=== PATIENT | female | born 1980 | race Caucasian/White ===

== ENCOUNTER 2017-09-23 23:43 | Inpatient (IN) | payer OTHER ==
[~2017-09-23] VITALS: Ht 165.1 cm; Wt 68.9 kg
[~2017-09-23 23:43] MED LIST: ACETAMINOPHEN325 M1 PO; ASACOL HD800 MG PO; CIPROFLOXACIN500 MG PO; CYCLOBENZAPRINE10 MG PO; FLAGYL500 MG PO; HUMIRA40 MG/0.1 SUB-Q; MELOXICAM15 MG PO; NAPROXEN500 MG PO; NORCO 5-325 TA1 EACH PO; OMEPRAZOLE20 MG PO; PENICILLIN V P500 MG PO; PERCOCET 5-3251 EACH PO; PREDNISONE20 MG PO; REMICADE100 MG/10 IV
[2017-09-23] MEDS ORDERED: IBUPROFEN600 MG PO (23:59)
[2017-09-26] MEDS ORDERED: PREDNISONE10 MG PO (11:10)
== END 2017-09-26 12:30 | disposition home or self-care (01) | DRG 386 ==
LOC: ED 23:43 → MS 23:45 → ED 09-24 01:59 → MS 09-24 08:53
PROVIDERS: ADMIT Internal Medicine
PROC: 30233N1 Transfusion of Nonautologous Red Blood Cells into Peripheral Vein, Percutaneous Approach (ICD-10-PCS; principal; 2017-09-24)
DX: K51.90 Ulcerative colitis, unspecified, without complications (principal); D62 Acute posthemorrhagic anemia; M13.80 Other specified arthritis, unspecified site; Z88.2 Allergy status to sulfonamides
CPT/HCPCS: 36415; 36430; 80053; 81001; 83605; 83735; 84703; 85025; 86850; 86900; 86901; 86920; 87045; 87046; 87177; 87209; 87493; 96360; 99285; G0378; J1720; J7030; J7120; P9016

== ENCOUNTER 2018-04-07 22:27 | Emergency (ER) | payer OTHER ==
[~2018-04-07] VITALS: Ht 165.1 cm; Wt 70.3 kg
[~2018-04-07 22:27] MED LIST changes: +IBUPROFEN600 MG PO; +PREDNISONE10 MG PO
[2018-04-08] MEDS ORDERED: FERROUS SULFAT325 MG PO (00:07)
== END 2018-04-08 00:33 | disposition home or self-care (01) ==
LOC: ED 22:27
DX: K51.90 Ulcerative colitis, unspecified, without complications (principal); D50.9 Iron deficiency anemia, unspecified; Z87.891 Personal history of nicotine dependence; Z88.2 Allergy status to sulfonamides
CPT/HCPCS: 80053; 81001; 83690; 84703; 85025; 96374; 99283; J2930; J7030

== ENCOUNTER 2018-10-19 22:00 | Inpatient (IN) | payer OTHER ==
[~2018-10-19] VITALS: Ht 165.1 cm; Wt 82.6 kg
[~2018-10-19 22:00] MED LIST changes: +FERROUS SULFAT325 MG PO
--- NOTE | 2018-10-20 00:30 | NUR ---
PER PT REQUEST WE BROUGHT HER A PILLOW AND A WARM BLANKET. PT NEEDS NOTHING MORE AT THIS TIME.
--- NOTE | 2018-10-20 04:23 | NUR ---
PATIENT HAS 6-8/10 NOEL AND BACK PAIN. PATIENT HAS A 1 LITER FLUID BOLUS RUNNING OVER AN HOUR AND THEN IV FLUIDS AT 150MLS/HR. PATIENT IS INDEPENDENT IN ROOM. ORIENTED TO CALL LIGHT, TV AND REMOTE, LIGHTS, AND BATHROOM. LUNGS CLEAR , VS STABLE, BOWEL TONES HYPERACTIVE.
--- NOTE | 2018-10-20 06:39 | NUR ---
PATIENT CONTINUES TO REST QUIETLY EYES CLOSED, NO S/S OF DSTRESS, RESPIRATIONS REGULAR AND EVEN AT THIS TIME.
--- NOTE | 2018-10-20 07:10 | NUR ---
BEDSIDE REPORT RECEIVED FROM MAGGIE KLEIN.
--- NOTE | 2018-10-20 07:10 | NUR ---
PT RESTING SUPINE IN BED, EYES CLOSED AND RESPIRATIONS EVEN AND UNLABORED. CALL LIGHT AND H2O IN REACH. IV MAINTENANCE FLUIDS INFUSING.
--- NOTE | 2018-10-20 09:09 | NUR ---
Pt resting supine in bed conversing with family at bedside. Pt states "I'm not having any nausea and my diahrea has slowed down. When do you think I'll be able to order regular food?" Pt informed that she is still ordered a clear liquid diet but that the doctor may advance her diet after he completes rounds with her this morning. pt assessment completed and am medication administered. Pt denies needs or concerns. Call light and h2o in reach.
--- NOTE | 2018-10-20 09:50 | NUR ---
PT WAS INFORMED THAT SHE MAY ADVANCE TO A REGUALR DIET TOLERABLE. PT STATES SHE FEELS SHE IS READY AND WILL ORDER REGULAR LUNCH. PT AGREES TO USE CALL LIGHT IF NAUSEA OR SYMPTOMS WORSEN. CALL LIGHT AND H20 IN REACH. FAMILY REMAINS AT BEDSIDE.
[2018-10-20] MEDS ORDERED: IBUPROFEN200 MG PO (11:04)
--- NOTE | 2018-10-20 11:42 | NUR ---
PT REPORTS HEADACHE PAIN OF 6/10 AND ALSO SOME PAIN TO LOWER BACK. PT STATES THIS PAIN STARTED THREE DAYS AGO AND COMES AND GOES AND HAS FOUND RELEIF WITH TYLENOL IN THE PAST. PRN PO TYLENOL ADMINISTERED. CALL LIGHT AND FRESH ICE WATER IN REACH. PT EATING LUNCH AND DENIES FURTHER NEEDS.
--- NOTE | 2018-10-20 13:55 | NUR ---
MED REC COMPLETE
--- NOTE | 2018-10-20 14:14 | NUR ---
PT RESTING SUPINE IN BED, STATES HEADACHE AND LOW BACK PAIN ARE NOW TOLERABLE. ASSESSMENT COMPLETED AND MEDICATIONS ADMINISTERED- SEE MAR. CALL LIGHT AND H2O IN REACH. NO FURTHER CONCERNS OR REQUESTS VOICED. FAMILY AT BEDSIDE.
--- NOTE | 2018-10-20 14:20 | NUR ---
PT IS EXPECTING TO RETURN HOME WHEN SHE IS DISCHARGED, NO NOTED BARRIERS TO DC. HAS GOOD SUPPORT AT HOME.
--- NOTE | 2018-10-20 16:08 | NUR ---
PATIENT IN BED RESTING AND WATCHING TV. WATER REFRESHED. CALL LIGHT IN REACH. NO FURTHER NEEDS AT THIS TIME.
--- NOTE | 2018-10-20 19:05 | NUR ---
[facility]. PT AWAKE AND ALERT X3, DENIES NEEDS AT THIS TIME. CALL LIGHT IN REACH. IV FLUIDS INFUSING AT 100 MLS/HR, SITE WNL.
--- NOTE | 2018-10-20 20:17 | NUR ---
CHARGE NURSE ROUNDING NOTE:, RESTING, EYES CLOSED, IVF INFUSING, NO C/O PAIN, NO REQUEST
--- NOTE | 2018-10-20 21:50 | NUR ---
VITALS AND I&OS DONE AND CHARTED. BEDSIDE TABLE AND CALL LIGHT IN REACH.
--- NOTE | 2018-10-20 22:10 | NUR ---
ASSESSMENT COMPLETE. PT A/O X3, DENIES PAIN. SCHEDULED SOLU-CORTEF ADMINISTERED. IV SITE WNL. PT APPEARS IN GOOD SPIRITS, VSS. NO FURTHER NEEDS AT THIS TIME. CALL LIGHT IN REACH.
--- NOTE | 2018-10-21 03:38 | NUR ---
morning assessment complete. pt a/ox3, rates pain 5/10 in head related to recent headache. prn tylenol given. iv fluids infusing per md orders, site wnl. pt denies further needs, call light in reach.
--- NOTE | 2018-10-21 06:55 | NUR ---
PT USES CALL LIGHT APPROPERIATELY, A/OX3. PT AMBULATES INDEPENDENTLY IN ROOM.PT ON REGULAR DIET, TOLERATING WELL, DENIED NAUSEA ALL SHIFT. VSS, PT ON RA. PT ON CONTINUOUS IV FLUIDS, SITE WNL. DENIED PAIN ALL SHIFT.
--- NOTE | 2018-10-21 07:07 | NUR ---
Pt resting supine in bed, eyes closed and respirations even and unlabored. Call light and h20 in reach. Pt appears to be sleeping comfortably. Bedside report received from MAGGIE Martin.
--- NOTE | 2018-10-21 08:36 | NUR ---
ASKED PATIENT IF SHE WOULD LIKE TO ORDER HER BREAKFAST AND SHE SAID LATER. PATIENT IS SLEEPING NOW. SON IS ALSO SLEEPING.
--- NOTE | 2018-10-21 09:24 | NUR ---
PT RESTING SUPINE IN BED, AM ASSESSMENT COMPLETED AND AM MED ADMINSITERED. CALL LIGHT AND H20 IN REACH. PT DENIES NAUSEA STATES STOMACH ACHES SLIGHTLY STILL AND REPORTS 2-3 LOOSE BM'S IN THE NIGHT AND 1 THIS MORNING "BUT THERE WAS NO MORE BLOOD IN IT". PT DENIES HAVING ANY CONCERNS OR REQUESTS AT THIS TIME.
--- NOTE | 2018-10-21 11:25 | NUR ---
Pt resting supine in bed, eyes closed and respirations even and unlabored at 16. call light and h20 in reach. pt appears to be sleeping comfortably. family also appears to be napping comfortably on couch at bedside.
--- NOTE | 2018-10-21 13:09 | NUR ---
in to see patient pt resting supine in bed eyes closed respirations even and unlbaored. pt alert to voice. Awake for assessment. VSS. call light and h20 in reach and family remains at bedside. pt orders lunch at this time.
--- NOTE | 2018-10-21 16:18 | NUR ---
PT RESTING SUPINE IN BED, DENIES SOB, ITCHING, PAIN OR ANY OTHER SYMPTOMS. VSS. CALL LIGHT AND H20 IN REACH. NO NEEDS OR CONCERNS VOICED. BLOOD CONTINUES TO INFUSE.
--- NOTE | 2018-10-21 17:10 | NUR ---
BLOOD INFUSION COMPLETED. PT DENIES ANY NEW SX'S CALL LIGHT AND H20 IN REACH. NO NEEDS OR CONCERNS VOICED. VSS.
--- NOTE | 2018-10-21 18:37 | NUR ---
PT CONTINUES TO REPORT SLIGHT ABDOMINAL ACHE, PT HAD SMALL AMOUNT OF BRIGHT BLOOD IN HER STOOL WHICH THE MD WAS NOTIFIED OF. PT WAS FEELING INCREASED FATIGUE AND NAPPING FOR HOURS AND HGB CONTINUED TO TREND LOW SO 1 UNIT PRBC'S WAS ORDERED AND TRANSFUSED. PT TOLORATED INFUSION WELL AND HAS SINCE BEEN UP AMBULATING HALLS AND APPEARS TO HAVE MORE ENERGY. VS'S HAVE REMAINED STABLE THROUGHOUT THE DAY. LIKELY DISCHARGE TOMORROW.
--- NOTE | 2018-10-21 19:00 | NUR ---
SHIFT REPORT RECEIVED FROM DAY[facility] MAGGIE BURCH. PT AWAKE AND TALKING ON THE TELEPHONE. APPEARS TO BE IN GOOD SPIRITS, A/OX3. NO NEEDS AT THIS TIME. PT IS SL AND WILL TAKE SHOWER AFTER EATING DINNER. CALL LIGHT IN REACH.
--- NOTE | 2018-10-21 19:56 | NUR ---
SCHEDULED PO POTASSIUM ADMINISTERED. PT DENIES FURTHER NEEDS. PT STES, "I AM JUST GOIGNT O REST FOR A COUPLE MINUTES AFTER I ATE DINNER THEN I WILL TAKE A SHOWER". CALL LIGHT IN REACH.
--- NOTE | 2018-10-21 21:06 | NUR ---
VITALS AND I&OS DONE AND CHARTED. TRAY TAKEN OUT OF ROOM. FRESH ICE WATER GIVEN. BEDSIDE TABLE AND CALL LIGHT IN REACH. PT NEEDS NOTHING MORE AT THSIS TIME. INFORMED RN TARA OF PULSE. 101
--- NOTE | 2018-10-21 21:45 | NUR ---
ASSESSMENT COMPLETE. PT A/O X3, VERBALIZES MINIMAL DISCOMFORT AFTER EATING BUT DENIES OVERALL PAIN. PT IN CHAIR, FAMILY IN ROOM. PT SL AT THIS TIME PT IS PREPARING TO TAKE A SHOWER. IV SITE WRAPPED FOR SHOWER DURING DAYSHIFT. WILL ADMINISTER SCHEDULED SOLU-CORTEF FOLLOWING SHOWER. NO FURTHER NEEDS, PT APPEARS IN GOOD SPIRITS. CALL LIGHT IN REACH.
--- NOTE | 2018-10-21 23:14 | NUR ---
MEDICATION DUE. pt FINISHED IN SHOWER. IV DRESSING GOT WET. NEW DRESSING APPLIED. IV FLUSHES WELL. MEDICATION GIVEN (SEE MAR). IV FLUIDS INFUSING AT 100 MLS/HR. CALL LIGHT WITHIN REACH.
--- NOTE | 2018-10-21 23:57 | NUR ---
WARM BLANKET PROVIDED PER PT REQUEST, NO FURTHER NEEDS. FAMILY IN ROOM WITH PT. IV FLUIDS INFUSING PER MD ORDERS, SITE WNL. CALL LIGHT IN REACH.
--- NOTE | 2018-10-22 00:54 | NUR ---
NEW BAG OF IV LR HUNG PER MD ORDERS. IV SITE PATENT. NO FURTHER NEEDS, CALL LIGHT IN REACH.
--- NOTE | 2018-10-22 02:15 | NUR ---
PT RESTING IN BED, EYES CLOSED. IV FLUIDS INFUSING PER MD ORDERS. RR EVEN AND UNLABORED, CALL LIGHT IN REACH.
--- NOTE | 2018-10-22 02:50 | NUR ---
MORNING ASSESSMENT COMPLETE. NO NEW CONCERNS. BOWEL TONES ACTIVE, GENERALIZED ABDOMINAL TENDERNESS NOTED. WHEN ASKED IF PT HAS HAD BLOOD IN RECENT BM, PT STATED, "I DON'T BELIEVE SO". IV FLUIDS INFUSING PER MD ORDERS, SITE WNL. ROOM TIDIED, FRESH WATER AND CRACKERS AT BEDSIDE PER PT REQUEST. PT IN BATHROOM FOR BM, NO FURTHER NEEDS, CALL LIGHT IN REACH.
--- NOTE | 2018-10-22 05:14 | NUR ---
PT HAD A VERY GOOD NIGHT. USES CALL LIGHT APPROPERIATELY, A/OX3 AND INDEPENDENT IN ROOM. PT ON REGULAR DIET, TOLERATING WELL W/ ACTIVE BOWEL TONES. PT DENIES NAUSEA BUT REPORTS ABDOMINAL TENDERNESS AND FEELING OF "BEING FULL". PT HAD SHOWER IN THE EVENING. IV FLUIDS INFUSING PER MD ORDERS, SITE WNL. VSS.
--- NOTE | 2018-10-22 06:32 | NUR ---
SCHEDULED SOLU-CORTEF GIVEN. IV SITE PATENT AND WNL. IV FLUIDS RESUMED. CALL LIGHT IN REACH.
--- NOTE | 2018-10-22 07:20 | NUR ---
REPORT RECEIVED FROM RY, PATIENT RESTING WITH EYES CLOSED, NO S/S OF DISTRESS.
--- NOTE | 2018-10-22 08:04 | NUR ---
PATIENT UP IN THE ROOM, NO C/O PAIN AT THIS TIME, PATIENT BREAKFAST ORDERED.
--- NOTE | 2018-10-22 10:48 | NUR ---
IV SALINE LOCKED. PATIENT UP IN THE ROOM WITHOUT ANY DIZZINESS AND IS STEADY ON HER FEET.
--- NOTE | 2018-10-22 12:43 | NUR ---
PATIENT RESTING WITH EYES CLOSED, WATER FILLED UP FOR HER AT THIS TIME, PATIENT HAS NO S/S OF DISTRESS.
--- NOTE | 2018-10-22 15:30 | NUR ---
PATIENT BLOOD STARTED AT THIS TIME, VITALS TAKEN AND PATIENT TEACHING DONE RE: S/S/ OF TRANSFUSION REACTION AT THIS TIME.
--- NOTE | 2018-10-22 15:45 | NUR ---
PATIENT HAS NO S/S OF TRANSFUSION REACTION AT THIS TIME. VITALS TAKEN AND PATIENT BLOOD RATE INCREASED.
--- NOTE | 2018-10-22 17:00 | NUR ---
HER UNIT OF PRBC COMPLETED AT THIS TIME, PATIENT DENIES ANY S/S OF BLOOD TRANSFUSION REACTION AT THIS TIME. PATIENT ATE 100% OF HER DINNER AND HAS NO C/O PAIN OR SOB.
--- NOTE | 2018-10-22 17:25 | NUR ---
PATIENT SITTING UP IN BED. VITAL SIGNS AND I&O DONE. CALL LIGHT WITHIN REACH. NO OTHER NEEDS AT THIS TIME
--- NOTE | 2018-10-22 17:49 | NUR ---
IV SALINE LOCKED AT THIS TIME
--- NOTE | 2018-10-22 19:20 | NUR ---
SHIFT REPORT RECEIVED FROM MAGGIE LEIGH. PT AWAKE IN BED, RR EVEN AND UNLABORED. PT DENIES NEEDS AT THIS TIME, CALL LIGHT IN REACH.
--- NOTE | 2018-10-22 21:02 | NUR ---
VITALS AND I&OS DONE AND CHARTED. FRESH ICE WATER GIVEN. FOOD TRAY TAKEN OUT OF ROOM. BEDSIDE TABLE AND CALL LIGHT IN REACH. PT NEEDS NOTHING MORE AT THIS TIME.
--- NOTE | 2018-10-22 21:30 | NUR ---
ROMAN PROVIDED PER PT REQUEST. PT APPEARS IN GOOD SPIRITS, CALL LIGHT IN REACH. NO FURTHER NEEDS.
--- NOTE | 2018-10-22 23:00 | NUR ---
ASSESSMENT COMPLETE. PT A/OX4, PRN TYLENOL RECENTLY GIVEN BY JUANITO SERRANO. PT REPORTS 4/10 PAIN IN NECK. PT SALINE LOCKED AT THIS TIME, AMBULATES INDEPENDENTLY IN THE ROOM. PT DENIES FURTHER NEEDS, CALL LIGHT IN REACH.
--- NOTE | 2018-10-22 23:07 | NUR ---
CALL LIGHT ON. pt REQUESTED TYLENOL. VERIFIED WITH PRIMARY RN. MEDICATIONS GIVEN (SEE MAR). ICE WATER REFRESHED. SHERBERT, WARM BLANKET AND HOT PACK PROVIDED. CALL LIGHT WITHIN REACH.
--- NOTE | 2018-10-23 02:06 | NUR ---
PT IN SHOWER, AMBULATING INDEPENDENTLY IN ROOM AT THIS TIME.
--- NOTE | 2018-10-23 04:41 | NUR ---
PT HAD A GOOD NIGHT. PAIN WELL CONTROLLED WITH PRN TYLENOL X1. PT A/OX4, USES CALL LIGHT APPROPERATELY AND AMBULATES IN ROOM INDEPENDENTLY. PT ON REGULAR DIET, TOLERATING WELL, NO NAUSEA THIS SHIFT BUT REPORTS FEELING BLOATED. PT SL AT THIS TIME.
--- NOTE | 2018-10-23 07:47 | NUR ---
PT RESTING SUPINE IN BED EYES CLOSED AND RESPIRATIONS EVEN AND UNLABORED. CALL LIGHT AND H20 IN REACH. PT APPEARS TO BE SLEEPING COMFORTABLY. BEDSIDE REPORT RECEIVED FROM MAGGIE PACHECO.
--- NOTE | 2018-10-23 08:19 | NUR ---
PT RESTING SUPINE IN BED, EYES CLOSED AND RESPIRATIONS EVEN AND UNLABORED. PT ALERT TO VOICE. ASSESSMENT COMPLETED AND AM MEDS ADMINISTERED. CALL LIGHT AND H20 IN REACH. PT DENIES NAUSEA, STATES SHE STILL IS EXPERIENCING SOME BLOATING BUT STILL HAS GOOD APPETITE.
--- NOTE | 2018-10-23 09:09 | NUR ---
PATIENT RESTING IN BED. VITAL SIGNS AND I&O DONE. CALL LIGHT WITHIN REACH. NO OTHER NEEDS AT THIS TIME
--- NOTE | 2018-10-23 11:01 | NUR ---
PT RESTING ON LEFT LATERAL SIDE IN BED, CALL LIGHT AND H20 IN REACH. RESPIRATIONS VISABLE AND PT APPEARS TO BE SLEEPING COMFORTBALY.
--- NOTE | 2018-10-23 13:34 | NUR ---
PATIENT RESTING IN BED. VITAL SIGNS AND I&O DONE. CALL LIGHT WITHIN REACH. ICE WATER GIVEN. NO OTHER NEEDS AT THIS TIME
[2018-10-23] MEDS ORDERED: PREDNISONE20 MG PO (13:56)
--- NOTE | 2018-10-23 13:57 | NUR ---
Pt resting supine in bed eyes closed and respirations even and unlabored. Pt alert to voice. Assessment completed. Pt states "Am I still going to get to go home today?". Pt assured that MD will be in to discuss plans with her as soon as she is able. Call light nad h20 in reach. No further requests or concerns voiced.
== END 2018-10-23 15:45 | disposition home or self-care (01) | DRG 387 ==
LOC: ED 22:00 → MS 10-20 02:40
PROVIDERS: ADMIT Internal Medicine
DX: K51.90 Ulcerative colitis, unspecified, without complications (principal); M07.60 Enteropathic arthropathies, unspecified site; D64.9 Anemia, unspecified; E86.0 Dehydration; L80 Vitiligo; Z87.891 Personal history of nicotine dependence; Z88.2 Allergy status to sulfonamides
CPT/HCPCS: 36415; 36430; 80048; 80053; 81001; 82728; 83540; 83690; 83735; 84466; 84703; 85025; 86850; 86900; 86901; 86920; 96360; 99284-25; J1650; J1720; J3475; J7030; J7120; J7512; P9016

== ENCOUNTER 2019-01-01 23:06 | Emergency (ER) | payer OTHER ==
[~2019-01-01] VITALS: Ht 165.1 cm; Wt 72.6 kg
--- OUTSIDE RECORDS SUMMARY | ~2019-01-01 | XMS | Clinical Summary ---
Demographics + + + | Address | [address] | | | [place] [address] | + + + | Home Phone | | + + + | Preferred Language | Unknown | + + + | Marital Status | Unknown | + + + | Jain Affiliation | Unknown | + + + | Race | Unknown | + + + | Ethnic Group | Unknown | + + + Author + + + | Author | [facility] | + + + | Organization | [facility] | + + + | Address | Unknown | + + + | Phone | Unavailable | + + + Care Team Providers + +------+ + | Care Call Box Wirer Name | Role | Phone | + +------+ + PP | Unavailable | + +------+ + Source Comments GEN is fully live on both EpicCare Ambulatory and EpicCare InPatient.[facility] Allergies Not on File Current Medications Not on file Active Problems Not on file Encounters +--------+ + + + + | Date | Type | Specialty | Care Team | Description | +--------+ + + + + | 11/09/ | Abstract | | Clinic, | | | 2018 | | | Gastroenterology | | +--------+ + + + + from Last 3 Months Social History + +-------+ +--------+------+ | Tobacco [...] on file | | + + + Plan of Treatment + + + + + | Health Maintenance | Due Date | Last Done | Comments | + + + + + | Influenza (Flu) | | | | | vaccination (#1) | 8 | | | + + + + + Results Not on filefrom Last 3 Months"
--- OUTSIDE RECORDS SUMMARY | ~2019-01-01 | XMS | Clinical Summary ---
Demographics + + + | Address | [address] | | | [place] [address] | + + + | Home Phone [...] | Author | [facility] | | | and [place] | + + + | Organization | [facility] | | | and [place] | + + + | Address | Unknown | + + + | Phone | Unavailable | + + + Support + + + + + | Name | Relationship | Address | Phone | + + + + + | Marilyn Diallo | ECON | [place] | | | | | [address] | | + + + + + | Lady Hastings ECON | Unknown | Unavailable | + + + + + Care Team Providers + +------+ + | Care Reclamation Furnace Operator Name | Role | Phone | [...] + + + Current Medications + + +---------+---------+------+------+-------+ | Prescription | Sig. | Disp. | Refills | Star | End | Statu | | | | | | t | Date | s | | | | | | Date | | | + + +---------+---------+------+------+-------+ | acetaminophen | Take 650 mg by mouth | | | | | Activ | | (TYLENOL) 325 mg | every 4 hours as | | | | | e | | tablet | needed for Pain. | | | | | | + + +---------+---------+------+------+-------+ | adalimumab (HUMIRA | Inject 0.8 mLs under | 2 kit | 2 | 07/ | | Activ | | PEN) 40 mg/0.8 mL | the skin every 14 | | | 06/30 | | e | | injection (pen) | days. | | | 16 | | | + + +---------+---------+------+------+-------+ Active Problems + + + | Problem [...] + + | Pulse | 81 | 03/10/20161139 PDT | + + + [...] | 160 cm (5' 3") | 03/11/2015 1351 PDT | + + + + | Body Mass Index | 32.59 | 03/10/2016 1140 PDT | + + + + Plan [...] Vaccine: Influenza | | | | | (#1) | 8 | | | + + + + + Results Not on filefrom Last 3 Months Insurance + +--------+ +--------+ +---------+ | Payer | Benefi | Subscriber | Type | Phone | Address | | | t Plan | ID | | | | | | / | | | | | | | Group | | | | | + +--------+ +--------+ +---------+ | [employer] | MODA | [id number] | Medica | [phone] | | MEDICAID HMO | HEALTH | | id | [id number] | | | | MDCD | | | | | | | [place]MO [place] | | | | | + +--------+ +--------+ +---------+ + +--------+ +--------+ + + | Guarantor Name | Accoun | Relation to | Date | Phone | Billing Address | | | t Type | Patient | of | | | | | | | | | | + +--------+ +--------+ + + | LIDA HASTINGS | Person | Self [birth year] | Work: | [address] | | | al/[place] | | 1979 | [phone] | [place] [address] | | | [address]ia | | | [phone]: | | | | | | | | | | | | | | [phone] | | | | | | | [phone] | | + +--------+ +--------+ + +
--- OUTSIDE RECORDS SUMMARY | ~2019-01-01 | XMS | Encounter Summary ---
Demographics + + + | Address | [address] | | | [place] [address] | + + + | Home Phone | | + + + | Preferred Language | Unknown | + + + | Marital Status | Single | + + + | Presybeterian Affiliation | Unknown | + + + | Race | Unknown | + + + | Ethnic Group | Unknown | + + + Author + + + | Author | [facility] | + + + | Organization | [facility] | + + + | Address | Unknown | + + + | Phone | Unavailable | + + + Support + + +---------+ + | Name | Relationship | Address | Phone | + + +---------+ + | Lady Hatsings | ECON | Unknown | | + + +---------+ + Care Team Providers + +------+ + | Care Multi Operation Forming Machine Setter Name | Role | Phone | + +------+ + | Meenakshi Christianson | PCP | | + +------+ + Reason for Visit +--------+ + | Reason | Comments | +--------+ + | Other | REFERRAL FROM [facility] | +--------+ + Encounter Details +--------+ + + + + | Date | Type | Department | Care Team | Description | +--------+ + + + + | 12/08/ | Documentati | [facility] | Osito Bowen | Other (REFERRAL FROM | | 2019 | on Only | Gastroenterology | MD Jonathan [address] | MEENAKSHI CHRISTIANSON) | | | | [address], | [address] | | | | | [address] [place], | [place] [address] | | | | | [place] [address] | [phone] | | | | | [phone] | | | +--------+ + + + [...] as of this encounter Plan of Treatment +--------+---------+ + + + | Date | Type | Specialty | Care Team | Description | +--------+---------+ + + + | 01/03/ | Office | Gastroenterology | Osito Bowen | | | 2019 | Visit | | MD Lizbeth Castillo | | | | | | Dr [address] | | | | | | [place] [address] | | | | | | [phone] | | | | | | | | +--------+---------+ + + + as of this encounter Visit Diagnoses Not on filein this encounter"
--- OUTSIDE RECORDS SUMMARY | ~2019-01-01 | XMS | Clinical Summary ---
Demographics + + + | Address | [address] | | | [place] [address] | + + + | Home Phone | | + + + | Preferred Language | Unknown | + + + | Marital Status | Single | + + + | Lutheran Affiliation | 1013 | + + + | Race | Unknown | + + + | Ethnic Group | Unknown | + + + Author + + + | Author | [facility] | | | and [place] | + + + | Organization | [facility] | | | and [place] | + + + | Address | Unknown | + + + | Phone | Unavailable | + + + Support + + + + + | Name | Relationship | Address | Phone | + + + + + | Marilyn Diallo | ECON | [place] | | | | | [address] | | + + + + + | Lady Hastings ECON | Unknown | Unavailable | + + + + + Care Team Providers + +------+ + | Care Rip Sawyer Name | Role | Phone | [...] | [employer] | MODA | [id number] | Medica | [phone] | | | MEDICAID HMO | HEALTH [...] | Self | [birth year] | Work: | [address] | | | al/[place] | | 1979 | [phone] | [place] [address] | | | [address] | | | [address]: | | | | | | | | | | | | | | [phone] | | | | | | | [phone] | | + +--------+ +--------+ + +
--- OUTSIDE RECORDS SUMMARY | ~2019-01-01 | XMS | Clinical Summary ---
Demographics + + + | Address | [address] | | | [place] [address] | + + + | Home Phone | | + + + | Preferred Language | Unknown | + + + | Marital Status | Single | + + + | Quaker Affiliation | Unknown | + + + | Race | Unknown | + + + | Ethnic Group | Unknown | + + + Author + + + | Author | [facility] | + + + | Organization | [facility] | + + + | Address | Unknown | + + + | Phone | Unavailable | + + + Support + + +---------+ + | Name | Relationship | Address | Phone | + + +---------+ + | Lady Hastings | ECON | Unknown | | + + +---------+ + Care Team Providers + +------+ + | Care Dredge Pumper Name | Role | Phone | + +------+ + | Meenakshi Christianson | PP | | + +------+ + Allergies Not on File Current Medications Not on file Active Problems Not on file Encounters +--------+ + + + + | Date | Type | Specialty | Care Team | Description | +--------+ + + + + | 12/08/ | Documentati | | Osito Bowen | Other (REFERRAL FROM | | 2019 | on Only | | MD Jonathan | [facility]EE[facility]STIAN[facility]) | +--------+ + + + + from [...] | + + + Plan of Treatment +--------+---------+ + + + | Date | Type | Specialty | Care Team | Description | +--------+---------+ + + + | 01/03/ | Office | | Osito Bowen | | | 2018 | Visit | | MD Lizbeth Castillo | | | | | | Dr [address] | | | | | | [place] [address] | | | | | | [phone] | | | | | | | | +--------+---------+ + + + + + + + [...] filefrom Last 3 Months Insurance + +--------+ +------+-------+ + | Payer | Benefi | Subscriber | Type | Phone | Address | | | t Plan | ID | | | | | | / | | | | | | | Group | | | | | + +--------+ +------+-------+ + | MEDICAID | [employer] | [id number] | | | [address] | | | [address] | | | | [place] | | | [place] | | | | [phone] | | | 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
--- OUTSIDE RECORDS SUMMARY | ~2019-01-01 | XMS | Encounter Summary ---
Demographics + + + | Address | [address] | | | [place] [address] | + + + | Home Phone | | + + + | Preferred Language | Unknown | + + + | Marital Status | Unknown | + + + | Taoist Affiliation | Unknown | + + + | Race | Unknown | + + + | Ethnic Group | Unknown | + + + Author + + + | Author | [facility] | + + + | Organization | [facility] | + + + | Address | Unknown | + + + | Phone | Unavailable | + + + Care Team Providers + +------+ + | Care Photographer Scientific Name | Role | Phone | + +------+ + PCP | Unavailable | + +------+ + Encounter Details +--------+ + + + + | Date | Type | Department | Care Team | Description | +--------+ + + + + | 11/09/ | Abstract | [facility] | Clinic, | | | 2019 | | Center at [facility] [address] | Gastroenterology | | | | | Floor [address] | | | | | | Yvonne Mailcode: [id number] | | | | | | [facility] | | | | | | and Healing, 6th | | | | | | floor [place], [place] | | | | | | [address] | | | | | | [phone] | | | +--------+ + + + [...] this encounter Plan of Treatment Not on fileas of this encounter Visit Diagnoses Not on filein this encounter"
--- OUTSIDE RECORDS SUMMARY | ~2019-01-01 | XMS | Clinical Summary ---
Demographics + + + | Address | [address] | | | [place] [address] | + + + | Home Phone | | + + + | Preferred Language | Unknown | + + + | Marital Status | Unknown | + + + | Jehovah'S Witness Affiliation | Unknown | + + + | Race | Unknown | + + + | Ethnic Group | Unknown | + + + Author + + + | Author | [facility] | + + + | Organization | [facility] | + + + | Address | Unknown | + + + | Phone | Unavailable | + + + Care Team Providers + +------+ + | Care Carbide Powder Processor Name | Role | Phone | + +------+ + PP | Unavailable | + +------+ + Source Comments GEN is fully live on both EpicCare Ambulatory and EpicCare InPatient.[facility] Allergies Not on File Current [...]
--- OUTSIDE RECORDS SUMMARY | ~2019-01-01 | XMS | Encounter Summary ---
Demographics + + + | Address | [address] | | | [place] [address] | + + + | Home Phone | | + + + | Preferred Language | Unknown | + + + | Marital Status | Unknown | + + + | Mormonism Affiliation | Unknown | + + + | Race | Unknown | + + + | Ethnic Group | Unknown | + + + Author + + + | Author | [facility] | + + + | Organization | [facility] | + + + | Address | Unknown | + + + | Phone | Unavailable | + + + Care Team Providers + +------+ + | Care Cylinder Inspector And Tester Name | Role | Phone | + +------+ + PCP | Unavailable | + +------+ + Encounter Details +--------+ + + + + | Date | Type | Department | Care Team | Description | +--------+ + + + + | 11/09/ | Abstract | Digestive Health | Clinic, | | | 2019 | | Center at [facility] 6th | Gastroenterology | | | | | Floor [address] | | | | | | Yvonne Mailcode: CH6D | | | | | | [facility] | | | | | | and Healing, 6th | | | | | | floor [place], [place] | | | | | | [address] | | | | | | [phone] | | | +--------+ + + + [...]
--- OUTSIDE RECORDS SUMMARY | ~2019-01-01 | XMS | Clinical Summary ---
Demographics + + + | Address | [address] | | | [place] [address] | + + + | Home Phone | | + + + | Preferred Language | Unknown | + + + | Marital Status | Single | + + + | Episcopal Affiliation | Unknown | + + + | Race | Unknown | + + + | Ethnic Group | Unknown | + + + Author + + + | Author | [facility] | + + + | Organization | [facility] | + + + | Address | Unknown | + + + | Phone | Unavailable | + + + Support + + +---------+ + | Name | Relationship | Address | Phone | + + +---------+ + | Lady Hastings | ECON | Unknown | | + + +---------+ + Care Team Providers + +------+ + | Care Employee Adviser Name | Role | Phone | [...] [address] | | | | | | [place] [address] | | | | | | [phone] | | | | | | | [...] +------+-------+ + | MEDICAID | [place]ER | [id number] | | | [address] | | | N | | | | [place] | | | [place] | | | | [address] | | | [place] | | | | | + +--------+ [...] | Self [birth year] Home: | [address] | | | al/[place] | | 1979 | [phone] [place] [address] | | | lucia | | | [phone] | | + +--------+ +--------+ + +"
--- OUTSIDE RECORDS SUMMARY | ~2019-01-01 | XMS | Encounter Summary ---
Demographics + + + | Address | [address] | | | [place] [address] | + + + | Home Phone | | + + + | Preferred Language | Unknown | + + + | Marital Status | Single | + + + | Pentecostalism Affiliation | Unknown | + + + | Race | Unknown | + + + | Ethnic Group | Unknown | + + + Author + + + | Author | [facility] | + + + | Organization | [facility] | + + + | Address | Unknown | + + + | Phone | Unavailable | + + + Support + + +---------+ + | Name | Relationship | Address | Phone | + + +---------+ + | Lady Hastings | ECON | Unknown | | + + +---------+ + Care Team Providers + +------+ + | Care Physician Scientist Name | Role | Phone | [...] + + | 12/08/ | Documentati | [facility] | Osito Bowen | Other (REFERRAL FROM | | 2019 | on Only | Gastroenterology | MD Jonathan [address] | [facility]EE[place]I [facility]) | | | | [address], | [address] | | | | | [address] [place], | [place] [address] | | | | | [place] [address] | [phone] | | | | | [phone] | | | +--------+ + + + [...] [address] | | | | | | [place] [address] | | | | | | [phone] | | | | | | | | +--------+---------+ + + + as of this encounter Visit Diagnoses Not on filein this encounter"
[~2019-01-01 23:06] MED LIST changes: +IBUPROFEN200 MG PO
[2019-01-01] MEDS ORDERED: ACETAMINOPHEN500 MG PO (23:14)
[2019-01-02] MEDS ORDERED: PREDNISONE20 MG PO (01:43)
== END 2019-01-02 02:06 | disposition home or self-care (01) ==
LOC: ED 23:06
DX: K51.90 Ulcerative colitis, unspecified, without complications (principal); D64.9 Anemia, unspecified; M79.10 Myalgia, unspecified site; Z87.891 Personal history of nicotine dependence; Z88.2 Allergy status to sulfonamides
CPT/HCPCS: 71046; 80053; 81001; 84703; 85025; 96361; 96374; 96375; 99284-25; J1170; J2405; J2930; J7030

== ENCOUNTER 2019-02-16 21:42 | Inpatient (IN) | payer OTHER ==
[~2019-02-16] VITALS: Ht 165.1 cm; Wt 83.6 kg
--- OUTSIDE RECORDS SUMMARY | ~2019-02-16 | XMS | Encounter Summary ---
Demographics + + + | Address | [address] | | | [place] [address] | + + + | Home Phone | | + + + | Preferred Language | Unknown | + + + | Marital Status | Single | + + + | Samaritan Affiliation | Unknown | + + + | Race | Unknown | + + + | Ethnic Group | Unknown | + + + Author + + + | Author | [facility] | + + + | Organization | [facility] | + + + | Address | Unknown | + + + | Phone | Unavailable | + + + Support + + +---------+ + | Name | Relationship | Address | Phone | + + +---------+ + | Lady Hastings | ECON | Unknown | | + + +---------+ + Care Team Providers + +------+ + | Care Draw Hand Name | Role | Phone | + +------+ + | Arjun CarlosChavarriaP | PCP | | + +------+ + Reason for Visit Auth/Cert +--------+--------+ + + + + | Status | Reason | Specialty | Diagnoses / | Referred By | Referred To | | | | | Procedures | Contact | Contact | +--------+--------+ + + + + | | | | Diagnoses | | | | | | | ulcerative | | | | | | | colitis | | | | | | | Procedures | | | | | | | COLONOSCOPY | | | +--------+--------+ + + + + Encounter Details +--------+---------+ + + + | Date | Type | Department | Care Team | Description | +--------+---------+ + + + | 01/26/ | Surgery | [facility] | Osito Bowen | COLONOSCOPY | | 2019 | | REGIONAL SURGERY | MD Jonathan [address] | | | | | CENTER INTRA OP | [address] | | | | | [address] | [place] [address] | | | | | [place], [place] | [phone] | | | | | [address] | | | | | | [phone] | | | +--------+---------+ + + + [...] + +---------+ + | Alcohol Use | Drinks/We | oz/Week | Comments | | | ek | | | + + +---------+ + | Yes | | | seldom | + + +---------+ + + + + | Sex Assigned at | Date Recorded | | | | + + + | Not on file | | + + + as of this encounter Last Filed Vital Signs + + + + | Vital Sign | Reading | Time Taken | + + + + | Blood Pressure | 110/62 | 01/26/2019 12:00 PM PDT | + + + + | Pulse | 88 | 01/26/2019 12:00 PM PDT | + + + + | Temperature | 36.4 C (97.6 F) | 01/26/2019 11:50 AM PDT | + + + + | Respiratory Rate | 20 | 01/26/2019 12:00 PM PDT | + + + + | Oxygen Saturation | 98% | 01/26/2019 12:00 PM PDT | + + + + | Inhaled Oxygen | - | - | | Concentration | | | + + + + | Weight | 82.6 kg (182 lb) | 01/26/2019 10:46 AM PDT | + + + + | Height | 160 cm (5' 3") | 01/26/2019 10:46 AM PDT | + + + + | Body Mass Index | 32.24 | 01/26/2019 10:46 AM PDT | + + + + in this encounter Discharge Summaries Osito Bowen MD - 01/26/2019 11:59 AM PDTFormatting of this note may be different f rom the original. [facility] Service: Gastroenterology Brief Post-op Discharge Note DISCHARGE DIAGNOSES: Active Problems: BRBPR (bright red blood per rectum) Ulcerative colitis with rectal bleeding (HCC) Resolved Problems: * No resolved hospital problems. * Procedures: Procedure(s): COLONOSCOPY This patient was transferred to the recovery area post-operatively and has experienced no d ifficulties at the time of my assessment. The patient is anticipated to continue to meet di scharge criteria per protocol as assessed by nursing and may be discharged at that time with designated caregiver. Disposition: Home Condition: Good Follow up: With GI clinic Medication List START taking these medications metroNIDAZOLE 500 MG tablet QTY: 42 tablet Refills: 0 Commonly known as: FLAGYL Take 1 tablet by mouth 3 (three) times daily for 14 days. CONTINUE taking these medications budesonide 3 MG delayed replease capsule QTY: 90 capsule Refills: 5 For diagnoses: Ulcerative colitis with rectal bleeding, unspecified location, BRBPR (brigh t red blood per rectum) Commonly known as: ENTOCORT EC Take 3 capsules by mouth every morning for 180 days. predniSONE 10 MG tablet QTY: 95 tablet Refills: 0 For diagnoses: Ulcerative colitis with rectal bleeding, unspecified location, BRBPR (brigh t red blood per rectum) Commonly known as: DELTASONE Take 4 tabs PO daily for 2 weeks, then 2 tabs PO daily for 2 weeks, then 1 tab PO daily for 1 week, then 1/2 tab daily PO until gone You might also be taking other medications not listed above. If you have questions about an y of your other medications, talk to the person who prescribed them or your Primary Care Pro vider. STOP taking these medications mesalamine 1000 MG suppository Commonly known as: CANASA Where to Get Your Medications These medications were sent to [facility] [address] [place] [address] 7 [facility] [address] [facility] [place] [address] metroNIDAZOLE 500 MG tablet Osito Bowen MD 01/26/2019 11:59 AM in this encounter Medications at Time of Discharge + + +---------+---------+ + + | Medication | Sig. | Disp. | Refills | Start | End Date | | | | | | Date | | + + +---------+---------+ + + | metroNIDAZOLE | Take 1 tablet by | 42 | 0 | 01/27/20 | | | (FLAGYL) 500 MG | mouth 3 (three) | tablet | | 19 | 9 | | tablet | times daily for 14 | | | | | | | days. | | | | | + + +---------+---------+ + + | budesonide | Take 3 capsules by | 90 | 5 | 01/04/20 | | | (ENTOCORT EC) 3 MG | mouth every morning | capsule | | 19 | 9 | | delayed replease | for 180 days. | | | | | | capsuleIndications: | | | | | | | Ulcerative colitis | | | | | | | with rectal | | | | | | | bleeding, | | | | | | | unspecified location | | | | | | | (HCC), BRBPR | | | | | | | (bright red blood | | | | | | | per rectum) | | | | | | + + +---------+---------+ + + | predniSONE | Take 4 tabs PO daily | 95 | 0 | 01/04/20 | | | (DELTASONE) 10 MG | for 2 weeks, then 2 | tablet | | 19 | 9 | | tabletIndications: | tabs PO daily for 2 | | | | | | Ulcerative colitis | weeks, then 1 tab | | | | | | with rectal | PO daily for 1 week, | | | | | | bleeding, | then 1/2 tab daily | | | | | | unspecified location | PO until gone | | | | | | (HCC), BRBPR | | | | | | | (bright red blood | | | | | | | per rectum) | | | | | | + + +---------+---------+ + + as of this encounter Plan of Treatment +--------+ + + + + | Date | Type | Specialty | Care Team | Description | +--------+ + + + + | 02/28/ | Office | Gastroenterology | Osito Bowen | | | 2019 | Visit | | MD Lizbeth Castillo | | | | | | [address] | | | | | | [place] [address] | | | | | | [phone] | | | | | | | | +--------+ + + + + | 03/28/ | Appointment | | Osito Bowen | | | 2018 | | | MD Lizbeth Castillo | | | | | | [address] | | | | | | [place] [address] | | | | | | [phone] | | | | | | | | +--------+ + + + + as of this encounter Procedures + +--------+ + + + | Procedure Name | Priori | Date/Time | Associated Diagnosis | Comments | | | ty | | | | + +--------+ + + + | PATHOLOGY HISTOLOGY | Routin | 01/26/2019 | Ulcerative colitis | Results for this | | - TISSUE | e | 4:40 PM | with rectal | procedure are in the | | | | PDT | bleeding, | results section. | | | | | unspecified location | | | | | | (HCC) BRBPR | | | | | | (bright red blood | | | | | | per rectum) | | + +--------+ + + + | COLONOSCOPY | | 01/26/2019 | Ulcerative colitis | | | | | 11:30 AM | with rectal | | | | | PDT | bleeding, | | | | | | unspecified location | | | | | | (HCC) | | + +--------+ + + + +---+--------+ | | | | | Specia | | | l | | | Needs | | | | | | 10:45A | | | , - | | | COLON | | | - IV | +---+--------+ + +--------+ +---+ + | POC URINE | Routin | 01/26/2019 | | Results for this | | | e | 10:53 AM | | procedure are in the | | | | PDT | | results section. | + +--------+ +---+ + in this encounter Results Pathology histology - tissue (01/26/2019 4:40 PM) + + | Specimen | + + | Tissue | + + + + + | Narrative | Performed At | + + + | SPECIMEN(S): A CECUM SPECIMEN(S): B TRANSVERSE COLON SPECIMEN(S): | [facility] | | C SIGMOID COLON SPECIMEN(S): D RECTUM SPECIMEN SOURCE: A. CECUM B. | PATHOLOGY | | TRANSVERSE COLON C. SIGMOID COLON D. RECTUM CLINICAL HISTORY: | | | K51.90 (ulcerative colitis, unspecified, without complications); K92.1 | | | (melena) MICROSCOPIC DESCRIPTION: Histologic sections of all | | | submitted blocks are examined by light microscopy. These findings, | | | together with the gross examination, support the pathologic diagnosis. | | | FINAL PATHOLOGIC DIAGNOSIS: A. Colon, cecum, biopsy: - Chronic | | | active colitis consistent with ulcerative colitis. - No evidence of | | | dysplasia. B. Colon, transverse, biopsy: - Chronic active | | | colitis consistent with ulcerative colitis. - No evidence of | | | dysplasia. C. Colon, sigmoid, biopsy: - Chronic active | | | colitis consistent with history of ulcerative colitis. - No | | | evidence of dysplasia. D. Rectum, biopsy: - Chronic active | | | colitis with features seen in ulcerative colitis. - No evidence of | | | dysplasia. COMMENT: Regarding parts A and B, these sections from | | | colon demonstrate features consistent with chronic active colitis. | | | Marked lymphoplasmacytosis is identified in the lamina propria, | | | accompanied by an increased number of eosinophils. There is acute | | | inflammation with cryptitis and crypt abscess formation. These changes | | | are superimposed on chronically damaged crypts as evidenced by | | | glandular architectural abnormalities. The intensity of the | | | inflammation is similar in all of the biopsy fragments. The features | | | that are present are consistent with active ulcerative colitis. | | | The sections from specimens C and D show a chronic active colitis with | | | areas of surface ulceration and glandular dropout. These changes are | | | superimposed on chronically damaged crypts as evidenced by marked | | | architectural abnormalities. No granulomas are seen. The features that | | | are present are consistent with active IBD. There is no evidence of | | | dysplasia. TWK:slh:C2NR GROSS DESCRIPTION: A. The specimen is | | | received in formalin and labeled "cecum biopsy" and consists of six | | | 0.1 to 0.2 cm, padilla fragments. Entirely submitted in (A1). | | | B. The specimen is received in formalin and labeled "Venkata" and | | | designated as "transverse colon biopsy" and consists of three 0.2 to | | | 0.3 cm, padilla fragments. Entirely submitted in (B1). C. The | | | specimen is received in formalin and labeled "Venkata" and designated as | | | "sigmoid colon biopsy" and consists of four 0.1 to 0.3 cm, padilla | | | fragments. Entirely submitted in (C1). D. The specimen is | | | received in formalin and labeled "Venkata" and designated as "rectum | | | biopsy" and consists of three 0.1 to 0.2 cm, padilla | | | fragments. Entirely submitted in (D1). am:AMB:[facility] PERFORMING | | | LABORATORY: The technical component was performed by [facility] | | | [facility], [address] [place] [address] ([employer]: | | | Loraine Chiu MD; CLIA# [id number]). The professional interpretation was | | | performed by [facility], [facility], [address] | | | [address] [place] [address]. Diagnostician: Elio Sosa MD | | | Pathologist Electronically Signed 2019 | | + + + + +---------+ + + | Performing | Address | City/State/Zipcode | Phone Number | | Organization | | | | + +---------+ + + | [facility] | | | | + +---------+ + + POCT urine (01/26/2019 10:53 AM) + + + + + | Component | Value | Ref Range | Performed At | + + + + + | POC HCG | Negative | | [facility] | | | | | LABORATORY | + + + + + + + + + + | Performing | Address | City/State/Zipcode | Phone Number | | Organization | | | | + + + + + | [facility] | [address] | [place] [address] | [phone] | | LABORATORY | [address] | | | + + + + + in this encounter Visit Diagnoses Not on filein this encounter Admitting Diagnoses + + | Diagnosis | + + | ulcerative colitis | + + Administered Medications + +--------+ +--------+------+------+ | Medication Order | MAR | Action | Dose | Rate | Site | | | Action | Date | | | | + +--------+ +--------+------+------+ | fentaNYL (SUBLIMAZE) injection | Given | | 50 mcg | | | | PRN, Starting Dariela 01/26/19 at | | 9 11:22 | | | | | 1122, Intra-op | | PDT | | | | + +--------+ +--------+------+------+ +-------+ +--------+---+---+ | Given | | 50 mcg | | | | | 9 11:24 | | | | | | PDT | | | | +-------+ +--------+---+---+ +---+---+ | | | +---+---+ + +---------+ +---+ +---+ | lactated ringers infusion at | New Bag | | | 30 mL/hr | | | 30 mL/hr, Intravenous, | | 9 10:57 | | | | | Continuous, Starting Dariela 01/26/19 | | PDT | | | | | at 1130, Pre-op | | | | | | + +---------+ +---+ +---+ +---+---+ | | | +---+---+ + +-------+ +------+---+---+ | midazolam (VERSED) injection | Given | | 2 mg | | | | PRN, Starting [facility] 01/26/19 at | | 9 11:24 | | | | | 1122, Intra-op | | PDT | | | | + +-------+ +------+---+---+ +-------+ +------+---+---+ | Given | | 3 mg | | | | | 9 11:26 | | | | | | PDT | | | | +-------+ +------+---+---+ | Given | | 2 mg | | | | | 9 11:28 | | | | | | PDT | | | | +-------+ +------+---+---+ +---+---+ | | | +---+---+ in this encounter
--- OUTSIDE RECORDS SUMMARY | ~2019-02-16 | XMS | Encounter Summary ---
Demographics + + + | Address | [address] | | | [place] [address] | + + + | Home Phone | | + + + | Preferred Language | Unknown | + + + | Marital Status | Single | + + + | Scientology Affiliation | Unknown | + + + | Race | Unknown | + + + | Ethnic Group | Unknown | + + + Author + + + | Author | [facility] | + + + | Organization | [facility] | + + + | Address | Unknown | + + + | Phone | Unavailable | + + + Support + + +---------+ + | Name | Relationship | Address | Phone | + + +---------+ + | Lady Hastings | ECON | Unknown | | + + +---------+ + Care Team Providers + +------+ + | Care Finisher Plate Name | Role | Phone | + +------+ + | Carlos Díaz | PCP | | + +------+ + Reason for Visit +--------+ + | Reason | Comments | +--------+ + | Other | [facility] | +--------+ + Encounter Details +--------+ + + + + | Date | Type | Department | Care Team | Description | +--------+ + + + + | 01/04/ | Documentati | [facility] | Josefina Olmos | Other ([facility] | | 2019 | on Only | Gastroenterology | D, 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 | 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 ) | | | | [address], | | | | | | [address] [place], | | | | | | [place] [address] | | | | | | [phone] | | | +--------+ + + + [...] | | + + +---------+ + | No | | | | + + +---------+ + + + + | Sex Assigned at | Date Recorded | | | | + + + | Not on file | | + + + as of this encounter Plan [...] [address] | | | | | | [place] [address] | | | | | | [phone] | | | | | | | | +--------+ + + + + | 03/28/ | Appointment | | Osito Bowen | | | 2019 | | | MD Jonathan [address] | | | | | | Dr [address] [facility] | | | | | | [place] [address] | | | | | | [phone] | | | | | | | | +--------+ + + + + as of this encounter Visit Diagnoses Not on filein this encounter"
--- OUTSIDE RECORDS SUMMARY | ~2019-02-16 | XMS | Clinical Summary ---
Demographics + + + | Address | [address] | | | [place] [address] | + + + | Home Phone | | + + + | Preferred Language | Unknown | + + + | Marital Status | Single | + + + | Nondenominational Affiliation | 1013 | + + + | Race | Unknown | + + + | Ethnic Group | Unknown | + + + Author + + + | Author | [facility] | | | and [place] | + + + | Organization | [facility] | | | and [place] | + + + | Address | Unknown | + + + | Phone | Unavailable | + + + Support + + + + + | Name | Relationship | Address | Phone | + + + + + | Marilyn Diallo | ECON | [place] | | | | | [address] | | + + + + + | Lady Hastings | ECON | Unknown | Unavailable | + + + + + Care Team Providers + +------+ + | Care Combat Control Name | Role | Phone | + +------+ + | Carlos Díaz NP | PP | Unavailable | + +------+ + Allergies + + + + + + | Active Allergy | Reactions | Severity | Noted | Comments | | | | | Date | | + + + + + + | Sulfa Antibiotics | Swelling | | 03/24/20 | "swelling of | | | | | 10 | tongue" | + + + + + + Medications + + + +---------+------+------+-------+ | Medication | Sig | Dispensed | Refills | Star | End | Statu | | | | | | t | Date | s | | | | | | Date | | | + + + +---------+------+------+-------+ | acetaminophen | Take 650 mg by mouth | | 0 | | | Activ | | (TYLENOL) 325 mg | every 4 hours as | | | | | e | | tablet | needed for Pain. | | | | | | + + + +---------+------+------+-------+ | adalimumab (HUMIRA | Inject 0.8 mLs under | 2 kit | 2 | 04/10 | | Activ | | PEN) 40 mg/0.8 mL | the skin every 14 | | | 06/30 | | e | | injection (pen) | days. | | | 16 | | | + + + +---------+------+------+-------+ Active Problems + + + | Problem | Noted Date | + + + | BRBPR (bright red blood per rectum) | 05/09/2018 | + + + | Other ulcerative colitis | 10/31/2014 | + + + | Diarrhea | 10/31/2014 | + + + | ABDOMINAL LUMP/MASS | 05/25/2011 | + + + | INFLAMMATORY BOWEL DISEASE | 04/02/2011 | + + + | ORAL APHTHAE | 04/02/2011 | + + + | ULCERATION OF VULVA DISEASE CLASSIFIED ELSEWHERE | 04/02/2011 | + + + + + | Overview: ICD-10 Record update | + + + + + | ULCERATIVE COLITIS | 12/15/2010 | + + + Immunizations + + + + | Name | Dates Previously Given | Next Due | + + + + | PPD Test | 04/17/2014 | | + + + + Family History + + +------+ + | Medical History | Relation | Name | Comments | + + +------+ + | Diabetes | Father | | | + + +------+ + | Colon polyps | Mother | | | + + +------+ + | High blood pressure | Mother | | | + + +------+ + | Diabetes, IDDM | Sister | | | + + +------+ + + +------+--------+ + | Relation | Name | Status | Comments | + +------+--------+ + | Father | | Alive | | + +------+--------+ + | Mother | | Alive | | + +------+--------+ + | Sister | | Alive | | + +------+--------+ + Social History + +-------+ +--------+------+ | [...] on file | | + + + + + + + | Job Start Date | Occupation | Industry | + + + + | Not on file | Not on file | Not on file | + + + + + + + + | Travel History | Travel Start | Travel End | + + + + + + | No recent travel history available. | + + Last Filed Vital Signs + + + + | Vital Sign | Reading | Time Taken | + + + + | Blood Pressure | 110/82 | 03/10/2016 1140 PDT | + + + + | Pulse | 81 | 03/10/2016 1140 PDT | + + + + | Temperature | 36.7 C (98.1 F) | 03/10/20161139 PDT | + + + + | Respiratory Rate | 16 | 03/10/20161139 PDT | + + + + | Oxygen Saturation | 96% | 03/10/20161139 PDT | + + + + | Inhaled Oxygen | - | - | | Concentration | | | + + + + | Weight | 83.5 kg (184 lb) | 03/10/20161139 PDT | + + + + | Height | 160 cm (5' 3") | 03/11/20151350 PDT | + + + + | Body Mass Index | 32.59 | 03/11/2015 1351 PDT | + + + + Plan of Treatment + + + + + | Health Maintenance | Due Date | Last Done | Comments | + + + + + | Vaccine: | | | | | Dtap/Tdap/Td (1 - | 1 | | | | Tdap) | | | | + + + + + | Cervical Cancer | | | | | Screening (Pap) | 2 | | | + + + + + | Vaccine: Influenza | | | | | (Season Ended) | 9 | | | + + + + + Results Not on filefrom Last 3 Months Insurance + +--------+ +--------+ +---------+--------+ | Payer | Benefi | Subscriber | Effect | Phone | Address | Type | | | t Plan | ID | karl | | | | | | / | | Dates | | | | | | Group | | | | | | + +--------+ +--------+ +---------+--------+ | [employer] | [employer] | [id number] | 11/13/19 | [phone] | | Medica | | MEDICAID HMO | HEALTH | | 14-Pre | 1 | | id | | | MDCD | | sent | | | | | | HMO [place] | | | | | | + +--------+ +--------+ +---------+--------+ + +--------+ +--------+ + + | Guarantor Name | Accoun | Relation to | Date | Phone | Billing Address | | | t Type | Patient | of | | | | | | | | | | + +--------+ +--------+ + + | Ria Hastings | Person | Self [birth year] | [address] | | | al/[place] | | 1980 | [phone] | [place] | | | [place] | | | 4 (Home) | [address] | | | | | | [phone] | | | | | | | 1 (Work) | | + +--------+ +--------+ + + Advance Directives Patient has advance care planning documents on file. For more information, please contact:[facility] and [facility] [place] [address]
--- OUTSIDE RECORDS SUMMARY | ~2019-02-16 | XMS | Encounter Summary ---
Demographics + + + | Address | [address] | | | [place] [address] | + + + | Home Phone | | + + + | Preferred Language | Unknown | + + + | Marital Status | Single | + + + | Church Affiliation | Unknown | + + + | Race | Unknown | + + + | Ethnic Group | Unknown | + + + Author + + + | Author | [facility] [employer] | + + + | Organization | [facility] | + + + | Address | Unknown | + + + | Phone | Unavailable | + + + Support + + +---------+ + | Name | Relationship | Address | Phone | + + +---------+ + | Lady Hastings | ECON | Unknown | | + + +---------+ + Care Team Providers + +------+ + | Care Percussion Teacher Name | Role | Phone | + +------+ + | Carlos Díaz | PCP | | + +------+ + Encounter Details +--------+ + + + + | Date | Type | Department | Care Team | Description | +--------+ + + + + | 01/23/ | Hospital | [facility] | | | | 2019 | Encounter | REGIONAL SURGERY | | | | | | CENTER PREADMISSION | | | | | | [facility] [address] | | | | | | [place] | | | | | | [address] | | | | | | [phone] | | | +--------+ + + + [...] + + + as of this encounter Medications at Time of Discharge + + + +---------+ + + | Medication | Sig. | Disp. | Refills | Start | End Date | | | | | | Date | | + + + +---------+ + + | metroNIDAZOLE | Take 1 tablet by | 42 | 0 | 01/27/20 | | | (FLAGYL) 500 MG | mouth 3 (three) | tablet | | 19 | 9 | | tablet | times daily for 14 | | | | | | | days. | | | | | + + + +---------+ + + | budesonide | Take 3 [...] + + +---------+ + + | mesalamine | Place 1 suppository | 30 | 0 | 01/04/20 | | | (CANASA) 1000 MG | rectally nightly for | supposito | | 19 | 9 | | suppositoryIndicatio | 30 days. | ry | | | | | ns: Ulcerative | | | | | | | colitis with rectal | | | | | [...] | + + + +---------+ + + as of this encounter Plan of Treatment +--------+ + + + + | Date | Type | Specialty | Care Team | Description | +--------+ + + + + | 02/28/ | Office | Gastroenterology | Osito Bowen | | | 2018 | Visit | | MD Lizbeth Castillo | | | | | | Dr [address] [facility] | | | | | | [place] [address] | | | | | | [phone] | | | | | | | | +--------+ + + + + | 03/28/ | Appointment | | Osito Bowen | | | 2019 | | | MD Lizbeth Castillo | | | | | | Dr [address] | | | | | | [place] [address] | | | | | | [phone] | | | | | | | | +--------+ + + + + as of this encounter Visit Diagnoses Not on filein this encounter"
--- OUTSIDE RECORDS SUMMARY | ~2019-02-16 | XMS | Encounter Summary ---
Demographics + + + | Address | [address] | | | [place] [address] | + + + | Home Phone | | + + + | Preferred Language | Unknown | + + + | Marital Status | Single | + + + | Anglican Affiliation | Unknown | + + + | Race | Unknown | + + + | Ethnic Group | Unknown | + + + Author + + + | Author | [facility] | + + + | Organization | [facility] | + + + | Address | Unknown | + + + | Phone | Unavailable | + + + Support + + +---------+ + | Name | Relationship | Address | Phone | + + +---------+ + | Lady Hastings | ECON | Unknown | | + + +---------+ + Care Team Providers + +------+ + | Care Assistant Business Manager Name | Role | Phone | [...] + + | 01/26/ | Surgery | [facility] | Osito Bowen | COLONOSCOPY | | 2019 | | REGIONAL SURGERY | MD Jonathan [address] | | | | | CENTER INTRA OP | [address] | | | | | [address] | [place] [address] | | | | | [place], [place] | [phone] | | | | | [address] | | | | | | [phone] | | | +--------+---------+ + + + [...] may be different f rom the original. [facility] Service: Gastroenterology Brief Post-op Discharge Note [...] Your Medications These medications were sent to [facility] [address] [place] [address] 6 [facility] [address] [place] [place] [address] metroNIDAZOLE 500 MG tablet Osito Bowen MD [...] [address] | | | | | | [place] [address] | | | | | | [phone] | | | | | | | | +--------+ + + + + | 03/28/ | Appointment | | Osito Bowen | | | 2018 | | | MD Lizbeth Castillo | | | | | | Dr [address] | | | | | | [place] [address] | | | | | | [phone] | | | | | | | [...] LABORATORY: The technical component was performed by [employer] | | | [employer], [address] [place] [address] (Information Management Manager: | | | Loraine Chiu MD; CLIA# [id number]). The professional interpretation was | | | performed by [employer], [facility], [address] | | | [place] [place] [address]. Diagnostician: Elio Sosa MD | | | [...] | + + + + + | [facility] | [address] | [place] [address] | [phone] | | LABORATORY | Blvd[address] | | [...] mg | | | | PRN, Starting [facility] 01/26/19 at | | 9 11:24 [...]
--- OUTSIDE RECORDS SUMMARY | ~2019-02-16 | XMS | Clinical Summary ---
Demographics + + + | Address | [address] | | | [place] [address] | + + + | Home Phone | | + + + | Preferred Language | Unknown | + + + | Marital Status | Single | + + + | Orthodoxy Affiliation | 1013 | + + + | Race | Unknown | + + + | Ethnic Group | Unknown | + + + Author + + + | Author | [facility] | | | and [place] | + + + | Organization | [facility] | | | and [place] | + + + | Address | Unknown | + + + | Phone | Unavailable | + + + Support + + + + + | Name | Relationship | Address | Phone | + + + + + | Marilyn Diallo | ECON | [place] | | | | | [address] | | + + + + + | Lady Hastings | ECON | Unknown | Unavailable | + + + + + Care Team Providers + +------+ + | Care Hydraulic Plumber Name | Role | Phone | + [...] | [employer] | [employer] | [id number] | 11/13/19 | [phone] | | Medica | | MEDICAID HMO [...] Person | Self | [birth year] | [address] | | | al/Antonio | | 1980 | [phone] | [place] | | | lucia | | | 4 (Home) | [address] | | | | | | [phone] | | | | | | | 1 (Work) | | + +--------+ +--------+ + + Advance Directives Patient has advance care planning documents on file. For more information, please contact:[facility] and [facility] [place] [address]
--- OUTSIDE RECORDS SUMMARY | ~2019-02-16 | XMS | Encounter Summary ---
Demographics + + + | Address | [address] | | | [place] [address] | + + + | Home Phone | | + + + | Preferred Language | Unknown | + + + | Marital Status | Single | + + + | Worship Affiliation | Unknown | + + + | Race | Unknown | + + + | Ethnic Group | Unknown | + + + Author + + + | Author | [facility] | + + + | Organization | [facility] | + + + | Address | Unknown | + + + | Phone | Unavailable | + + + Support + + +---------+ + | Name | Relationship | Address | Phone | + + +---------+ + | Lady Hastings | ECON | Unknown | | + + +---------+ + Care Team Providers + +------+ + | Care Unit Coordinator Name | Role | Phone | + +------+ + | Carlos Díaz | PCP | | + +------+ + Encounter Details +--------+ + + + + | Date | Type | Department | Care Team | Description | +--------+ + + + + | 01/26/ | [facility] | [facility] | | | [facility] | Pass | REGIONAL SURGERY | | | | | | CENTER INTRA OP | | | | | | [address] | | | | | | [place] | | | | | | [address] | | | | | | [phone] | | | +--------+ + + + [...] | | | | | | Dr [address] | | | | | | [place] [address] | | | | | | [phone] | | | | | | | | +--------+ + + + + | 03/28/ | Appointment | | Osito Bowen | | | 2018 | | | MD Lizbeth Castillo | | | | | | Dr [address] | | | | | | [place] [address] | | | | | | [phone] | | | | | | | | +--------+ + + + + as of this encounter Visit Diagnoses Not on filein this encounter"
--- OUTSIDE RECORDS SUMMARY | ~2019-02-16 | XMS | Encounter Summary ---
Demographics + + + | Address | [address] | | | [place] [address] | + + + | Home Phone | | + + + | Preferred Language | Unknown | + + + | Marital Status | Single | + + + | Sabianist Affiliation | Unknown | + + + | Race | Unknown | + + + | Ethnic Group | Unknown | + + + Author + + + | Author | [facility] | + + + | Organization | [facility] | + + + | Address | Unknown | + + + | Phone | Unavailable | + + + Support + + +---------+ + | Name | Relationship | Address | Phone | + + +---------+ + | Lady Hastings | ECON | Unknown | | + + +---------+ + Care Team Providers + +------+ + | Care Nurse Consultant Name | Role | Phone | [...] + + + + | 01/26/ | Hospital | [facility] | Osito Bowen | Ulcerative colitis | | 2019 | Encounter | REGIONAL SURGERY | MD Jonathan [address] | with rectal bleeding | | | | CENTER INTRA OP | [address] | ([facility]); Ulcerative | | | | [address] | [place] [address] | colitis with rectal | | | | [place], [place] | [phone] | bleeding, | | | | [address] | | unspecified location | | | | [phone] | | ([facility]); BRBPR | | | | | | (bright red blood | | | | | | per rectum) | +--------+ + + + + Social [...] may be different f rom the original. [facility] Service: Gastroenterology Brief Post-op Discharge Note DISCHARGE [...] Your Medications These medications were sent to [facility] [address] [facility] [place] [facility] [address] [facility] [place] [address] metroNIDAZOLE 500 MG tablet Osito Bowen MD [...] | 2018 | Visit | | MD Jonathan [address] | | | | | | [address] | | | | | | [place] [address] | | | | | | [phone] | | | | | | | | +--------+ + + + + | 03/28/ | Appointment | | Osito Bowen | | | 2018 | | | MD Lizbeth Castillo | | | | | | Dr [address] | | | | | | [place] [address] | | | | | | [phone] | | | | | | | [...] location | | | | | | ([facility]) BRBPR | | | | | | [...] no evidence of | | | dysplasia. TWK:[facility] [address]:C2NR GROSS DESCRIPTION: A. The specimen is | [...] | | fragments. Entirely submitted in (D1). am:SAHRA:chiara PERFORMING | | | LABORATORY: The technical component was performed by [employer] | | | [facility], [address] [facility] [address] (Career Counselor: | | | Loraine Chiu MD; CLIA# [id number]). The professional interpretation was | | | performed by [employer], [facility], [address] [place] [address]. Diagnostician: Elio Sosa MD | | | Pathologist Electronically Signed 2019 | | + + + + +---------+ + + | Performing | Address | City[facility] | Phone Number | | Organization | [...] | + + + + + | [facility] | [address] | [place] [address] | [phone] | | LABORATORY | Blvd[address] | | | + + + + + in this encounter Visit Diagnoses + + | Diagnosis | + + | Ulcerative colitis with rectal bleeding, unspecified location (HCC) | + + | BRBPR (bright red blood per rectum) | + + | Hemorrhage of rectum and anus | + + Admitting Diagnoses + + | Diagnosis | + + | ulcerative colitis | + + Administered Medications + +---------+ +------+ +------+ | Medication Order | MAR | Action | Dose | Rate | Site | | | Action | Date | | | | + +---------+ +------+ +------+ | lactated ringers infusion at | New Bag | | | 30 mL/hr | | | 30 mL/hr, Intravenous, | | 9 10:57 | | | | | Continuous, Starting Dariela 01/26/19 | | PDT | | | | | at 1130, Pre-op | | | | | | + +---------+ +------+ +------+ +---+---+ | | | +---+---+ in this encounter
--- OUTSIDE RECORDS SUMMARY | ~2019-02-16 | XMS | Clinical Summary ---
Demographics + + + | Address | [address] | | | [place] [address] | + + + | Home Phone | | + + + | Preferred Language | Unknown | + + + | Marital Status | Single | + + + | Temple Affiliation | Unknown | + + + | Race | Unknown | + + + | Ethnic Group | Unknown | + + + Author + + + | Author | Gonsalo IPDIA | + + + | Organization | [facility] | + + + | Address | Unknown | + + + | Phone | Unavailable | + + + Support + + +---------+ + | Name | Relationship | Address | Phone | + + +---------+ + | Lady Hastings | ECON | Unknown | | + + +---------+ + Care Team Providers + +------+ + | Care Prestidigitator Name | Role | Phone | + +------+ + | ArjunCarlos Luis CHOPRAP | PP | | + +------+ + Allergies + + + + + + | Active Allergy | Reactions | Severity | Noted | Comments | | | | | Date | | + + + + + + | Sulfa Antibiotics | Swelling | Medium | 03/24/20 | "swelling of | | | | | 10 | tongue" | + + + + + + Current Medications + + + +---------+------+------+-------+ | Prescription | Sig. | Disp. | Refills | Star | End | Statu | | | | | | t | Date | s | | | | | | Date | | | + + + +---------+------+------+-------+ | predniSONE | Take 1.5 tablets by | 45 | 1 | 05/0 | 07/0 | Activ | | (DELTASONE) 10 MG | mouth daily for 60 | tablet | | 7/20 | 6/20 | e | | tablet | days. | | | 19 | 19 | | + + + +---------+------+------+-------+ | acetaminophen | Take 650 mg by | | | | 04/1 | Disco | | (TYLENOL) 325 MG | mouth. | | | | 5/20 | ntinu | | tablet | | | | | 19 | ed | + + + +---------+------+------+-------+ | predniSONE | Take 4 tabs PO daily | 95 | 0 | 03/2 | 05/0 | Disco | | (DELTASONE) 10 MG | for 2 weeks, then 2 | tablet | | 6/20 | 7/20 | ntinu | | tabletIndications: | tabs PO daily for 2 | | | 19 | 19 | ed | | Ulcerative colitis | weeks, then 1 tab | | | | | | | with rectal | PO daily for 1 week, | | | | | | | bleeding, | then 1/2 tab daily | | | | | | | unspecified location | PO until gone | | | | | | | ([facility]), BRBPR | | | | | | | | (bright red blood | | | | | | | | per rectum) | | | | | | | + + + +---------+------+------+-------+ | budesonide | Take 3 capsules by | 90 | 5 | 03/2 | 05/0 | Disco | | (ENTOCORT EC) 3 MG | mouth every morning | capsule | | 03/30 | 04/29 | ntinu | | delayed replease | for 180 days. | | | 19 | 19 | ed | | capsuleIndications: | | | | | | | | Ulcerative colitis | | | | | | | | with rectal | | | | | | | | bleeding, | | | | | | | | unspecified location | | | | | | | | ([facility]), BRBPR | | | | | | | | (bright red blood | | | | | | | | per rectum) | | | | | | | + + + +---------+------+------+-------+ | mesalamine | Place 1 suppository | 30 | 0 | 03/2 | 04/ | Disco | | (CANASA) 1000 MG | rectally nightly for | supposito | | 6/20 | 8/20 | ntinu | | suppositoryIndicatio | 30 days. | ry | | 19 | 19 | ed | | ns: Ulcerative | | | [...] rectum) | | | | | | | + + + +---------+------+------+-------+ | metroNIDAZOLE | Take 1 tablet by | 42 | 0 | 04/ | 05/0 | Expir | | (FLAGYL) 500 MG | mouth 3 (three) | tablet | | 20 | 2/20 | ed | | tablet | times daily for 14 | | | 19 | 19 | | | | days. 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 | 04/02/2011 | + + + + + | Overview: Overview: | | ICD-10 Record update | + + + + + | Ulcerative colitis (HCC) | 12/15/2010 | + + + Encounters +--------+ + + + + | Date | Type | Specialty | Care Team | Description | +--------+ + + + + | 02/14/ | Documentati | | Josefina Olmos | Other ([facility] | | 2018 | on Only | | D, JUDICIAL ADMINISTRATIVE ASSISTANT | incomplete lab | | | | | | 02/14/19) | +--------+ + + + + | 02/14/ | Orders Only | | Josefina Olmos | | | 2018 | | | D, JUDICIAL ADMINISTRATIVE ASSISTANT | | +--------+ + + + + | 02/14/ | Telephone | | Josefina Olmos | Other (TB | | 2018 | | | D, JUDICIAL ADMINISTRATIVE ASSISTANT | Test/Infusion | | | | | | Problem ) | +--------+ + + + + | 02/07/ | Telephone | | Josefina Olmos | Other (TB TEST ) | 2018 | | | D, JUDICIAL ADMINISTRATIVE ASSISTANT | | +--------+ + + + + | 01/30/ | Telephone | | Josefina Olmos | Other (PA FOR | 2018 | | | D, JUDICIAL ADMINISTRATIVE ASSISTANT | ENTYVIO ) | +--------+ + + + + | 01/26/ | Hospital | | Osito Bowen | Ulcerative colitis | | 2018 | Encounter | | MD Jonathan | with rectal bleeding | | | | | | ([facility]); Ulcerative | | | | | | colitis with rectal | | | | | | bleeding, | | | | | | unspecified location | | | | | | (FORM[facility]); BRBPR | | | | | | (bright red blood | | | | | | per rectum) | +--------+ + + + + +---+ + | | Discharge | | | Summaries | | | - | | | Andrés, | | | Osito Castlilo | | | - | | | 01/26/2019 | | | 11:59 AM | | | PDT | | | Formatting | | | of this | | | note may be | | | different | | | from the | | | original.[facility] | [facility]: | | | Gastroenter | | | ologyBrief | | | Post-op | | | Discharge | | | NoteDISCHAR | | | GE | | | DIAGNOSES:A | | | ctive | | | Problems: | | | BRBPR | | | (bright red | | | blood per | | | rectum) | | | Ulcerative | | | colitis | | | with rectal | | | bleeding | | | (HCC)Resolv | | | ed | | | Problems: | | | * No | | | resolved | | | hospital | | | problems. | | | *Procedures | | | : | | | Procedure(s | | | ):COLONOSCO | | | PYThis | | | patient was | | | | | | transferred | | | to the | | | recovery | | | area | | | post-operat | | | ively and | | | has | | | experienced | | | no | | | difficultie | | | s at the | | | time of my | | | assessment. | | | The | | | patient is | | | anticipated | | | to | | | continue to | | | meet | | | discharge | | | criteria | | | per | | | protocol as | | | assessed | | | by nursing | | | and may be | | | discharged | | | at that | | | time with | | | designated | | | caregiver.D | | | isposition: | | | | | | HomeConditi | | | on: | | | GoodFollow | | | up:With GI | | | clinic | | | Medication | | | List START | | | taking | | | these | | | medications | | | | | | metroNIDAZO | | | LE 500 MG | | | tabletQTY: | | | 42 | | | tabletRefil | | | ls: | | | 0Commonly | | | known as: | | | FLAGYLTake | | | 1 tablet by | | | mouth 3 | | | (three) | | | times daily | | | for 14 | | | days. | | | CONTINUE | | | taking | | | these | | | medications | | | | | | budesonide | | | 3 MG | | | delayed | | | replease | | | capsuleQTY: | | | 90 | | | capsuleRefi | | | lls: 5For | | | diagnoses: | | | Ulcerative | | | colitis | | | with rectal | | | bleeding, | | | unspecified | | | location, | | | BRBPR | | | (bright red | | | blood per | | | rectum)Comm | | | only known | | | as: | | | ENTOCORT | | | ECTake 3 | | | capsules by | | | mouth | | | every | | | morning for | | | 180 days. | | | predniSONE | | | 10 MG | | | tabletQTY: | | | 95 | | | tabletRefil | | | ls: 0For | | | diagnoses: | | | Ulcerative | | | colitis | | | with rectal | | | bleeding, | | | unspecified | | | location, | | | BRBPR | | | (bright red | | | blood per | | | rectum)Comm | | | only known | | | as: | | | DELTASONETa | | | ke 4 tabs | | | PO daily | | | for 2 | | | weeks, then | | | 2 tabs PO | | | daily for 2 | | | weeks, | | | then 1 tab | | | PO daily | | | for 1 week, | | | then 1/2 | | | tab daily | | | PO until | | | gone You | | | might also | | | be taking | | | other | | | medications | | | not listed | | | above. If | | | you have | | | questions | | | about any | | | of your | | | other | | | medications | | | , talk to | | | the person | | | who | | | prescribed | | | them or | | | your | | | Primary | | | Care | | | Provider. | | | STOP | | | taking | | | these | | | medications | | | | | | mesalamine | | | 1000 MG | | | suppository | | | Commonly | | | known as: | | | CANASA | | | Where to | | | Get Your | | | Medications | | | These | | | medications | | | were sent | | | to [facility] | | | Pharmacy | | | [address] [place] | | [place] [address] | [address] | [address], | | | [place] | | | [place] [address] | | | Phone: | | | [phone] | | | 1 | | | metroNIDAZO | | | LE 500 MG | | | tablet | | | Osito Castillo | | | Andrés | | | | | | 01/26/2019 | | | 11:59 AM | +---+ + +--------+ +---+ + + | 01/26/ | Orders Only | | Osito Bowen | | | 2018 | | | MD Jonathan | | +--------+ +---+ + + | 01/26/ | Procedure | | | | | 2019 | Pass | | | | +--------+ +---+ + + | 01/26/ | Surgery | | Osito Bowen | COLONOSCOPY | | 2018 | | | MD Jonathan | | +--------+ +---+ + + | 01/23/ | Hospital | | | | | 2019 | Encounter | | | | +--------+ +---+ + + | 01/23/ | Telephone | | Josefina Olmos | Other (pre-procedure | | 2018 | | | D, JUDICIAL ADMINISTRATIVE ASSISTANT | call ) | +--------+ +---+ + + | 01/18/ | Orders Only | | Josefina Olmos | Ulcerative colitis | | 2018 | | | D, JUDICIAL ADMINISTRATIVE ASSISTANT | with rectal | | | | | | bleeding, | | | | | | unspecified location | | | | | | (HCC) (Primary Dx); | | | | | | BRBPR (bright red | | | | | | blood per rectum) | +--------+ +---+ + + | 01/10/ | Telephone | | Josefina Olmos | Other (medication | 2018 | | | D, JUDICIAL ADMINISTRATIVE ASSISTANT | denial ) | +--------+ +---+ + + | 01/06/ | Telephone | | Josefina Olmos | Other | | 2019 | | | D, JUDICIAL ADMINISTRATIVE ASSISTANT | | +--------+ +---+ + + | 01/04/ | Documentati | | Josefina Olmos | Other (SHABANA FONTENOT ON | | 2018 | on Only | | D, JUDICIAL ADMINISTRATIVE ASSISTANT | MESALAMINE ) | +--------+ +---+ + + | 01/04/ | Documentati | | Josefina Olmos | Other ([facility] | | 2018 | on Only | | D, JUDICIAL ADMINISTRATIVE ASSISTANT | [facility] | | | | | | records from | | | | | | 01/01/19); Other | | | | | | ([facility] | | | | | | Lab results 04/08/18) | +--------+ +---+ + + | 01/03/ | Office | | Osito Bowen | Ulcerative colitis | 2018 | Visit | | MD Jonathan | with rectal | | | | | | bleeding, | | | | | | unspecified location | | | | | | (HCC) (Primary Dx); | | | | | | BRBPR (bright red | | | | | | blood per rectum) | +--------+ +---+ + + | 12/08/ | Documentati | | Osito Bowen | Other (REFERRAL FROM | | 2018 | on Only | | MD Jonathan | CARLOS CHRISTIANSON) | +--------+ +---+ + + from Last 3 Months Family History + + +------+ + | Medical History | Relation | Name | Comments | + + +------+ + | Ulcerative colitis | Mother | | | + + [...] on file | | + + + Last Filed Vital Signs + [...] AM PDT | + + + + Plan of Treatment +--------+ + + + + | Date | Type | Specialty | Care Team | Description | +--------+ + + + + | 02/28/ | Office | | Osito Bowen | | | 2018 | Visit | | MD Lizbeth Castillo | | | | | | Dr [address] | | | | | | [place] [address] | | | | | | [phone] | | | | | | | | +--------+ + + + + | 03/28/ | Appointment | | Osito Bowen | | | 2018 | | | MD Lizbeth Castillo | | | | | | Dr [address] | | | | | | [place] [address] | | | | | | [phone] | | | | | | | | +--------+ + + + + + + + + + | Health [...] | | + + + + + Procedures + +--------+ + + + | [...] | | | | | | ([facility]LY [facility]) BRBPR | | | | | | [...] | | | | | | ([facility]) | | + +--------+ + + + [...] results section. | + +--------+ +---+ + from Last 3 Months Results Pathology histology - tissue (01/26/2019 4:40 PM) + + | Specimen | + + | Tissue | + + + + + | Narrative | Performed At | + + + | SPECIMEN(S): A CECUM SPECIMEN(S): B TRANSVERSE COLON SPECIMEN(S): | [facility] | | C SIGMOID COLON SPECIMEN(S): D [...] no evidence of | | | dysplasia. TWK:[facility]:C2NR GROSS DESCRIPTION: A. The specimen is | [...] LABORATORY: The technical component was performed by [email or web address] | | | [facility], [address] [place] [address] (Mechanical Oxidizer: | | | Loraine Chiu MD; CLIA# [id number]). The professional interpretation was | | | performed by [facility], [facility], [facility] | | | [place] [address] [address]. Diagnostician: Elio Sosa MD | | | Pathologist Electronically Signed 2019 | | + + + + +---------+ + + | Performing | Address | City/State/Zipcode | Phone Number | | Organization | | | | + +---------+ + + | [facility] | | | | + +---------+ [...] + + + | [facility] | [address] | [place] [address] | [phone] | | LABORATORY | [address] | | | + + + + + from Last 3 Months Insurance + +--------+ +------+-------+ + | Payer | Benefi | Subscriber | Type | Phone | Address | | | t Plan | ID | | | | | | / | | | | | | | Group | | | | | + +--------+ +------+-------+ + | MEDICAID | [employer] | [id number] | | | [address] | | | [address] | | | | [place] | | | [place] | | | | [phone] | | | [employer] | | | | | + +--------+ +------+-------+ + + +--------+ +--------+ + + | Guarantor Name | Accoun | Relation to | Date | Phone | Billing Address | | | t Type | Patient | of | | | | | | | | | | + +--------+ +--------+ + + | RIA HASTINGS | Person | Self [birth year] Home: | [address] | | | marty/Antonio | | 1980 | [phone] | [place] | | | lucia | | | [phone] | [phone] | + +--------+ +--------+ + +
--- OUTSIDE RECORDS SUMMARY | ~2019-02-16 | XMS | Encounter Summary ---
Demographics + + + | Address | [address] | | | [place] [address] | + + + | Home Phone | | + + + | Preferred Language | Unknown | + + + | Marital Status | Single | + + + | Mormonism Affiliation | Unknown | + + + | Race | Unknown | + + + | Ethnic Group | Unknown | + + + Author + + + | Author | [facility]ons[facility] [employer] | + + + | Organization | [facility] | + + + | Address | Unknown | + + + | Phone | Unavailable | + + + Support + + +---------+ + | Name | Relationship | Address | Phone | + + +---------+ + | Lady Hastings | ECON | Unknown | | + + +---------+ + Care Team Providers + +------+ + | Care Carpenter Assembler Name | Role | Phone | [...] + + | 01/04/ | Documentati | [facility] | Josefina Olmos | Other (SHABANA FONTENOT ON | | 2019 | on Only | Gastroenterology | D, IMPRESSION PRINTER | MESALAMINE ) | | | | [address], | | | | | | [address] [place], | | | | | | [place] [address] | | | | | | [phone] | | | +--------+ + + + [...] [address] | | | | | | [place] [address] | | | | | | [phone] | | | | | | | | +--------+ + + + + | 03/28/ | Appointment | | Osito Bowen | | | 2019 | | | MD Jonathan [address] | | | | | | Dr Ayoub [facility] | | | | | | [place] [address] | | | | | | [phone] | | | | | | | | +--------+ + + + + as of this encounter Visit Diagnoses Not on filein this encounter"
--- OUTSIDE RECORDS SUMMARY | ~2019-02-16 | XMS | Encounter Summary ---
Demographics + + + | Address | [address] | | | [place] [address] | + + + | Home Phone [...] + + + | Author | Gonsalo [employer] | + + + | Organization | [facility] | + + + | Address | Unknown | + + + | Phone | Unavailable | + + + Support + + +---------+ + | Name | Relationship | Address | Phone | + + +---------+ + | Lady Hastings | ECON | Unknown | | + + +---------+ + Care Team Providers + +------+ + | Care Die Assembler Name | Role | Phone | + +------+ + | Carlos DíazP | PCP | | + +------+ + Encounter Details +--------+ + + + + | Date | Type | Department | Care Team | Description | +--------+ + + + + | 01/26/ | Orders Only | [facility] | Osito Bowen | | | 2019 | | Gastroenterology | MD Jonathan [address] | | | | | [address], | [address] | | | | | [address] [place], | [place] [address] | | | | | [place] [address] | [phone] | | | | | [phone] | | | +--------+ + + + [...] [address] | | | | | | [place] [address] | | | | | | [phone] | | | | | | | | +--------+ + + + + | 03/28/ | Appointment | | Osito Bowen | | | 2018 | | | MD Lizbeth Castillo | | | | | | Dr [address] | | | | | | [place] [address] | | | | | | [phone] | | | | | | | | +--------+ + + + + as of this encounter Visit Diagnoses Not on filein this encounter"
--- OUTSIDE RECORDS SUMMARY | ~2019-02-16 | XMS | Encounter Summary ---
Demographics + + + | Address | [address] | | | [place] [address] | + + + | Home Phone | | + + + | Preferred Language | Unknown | + + + | Marital Status | Single | + + + | Restoration Affiliation | Unknown | + + + | Race | Unknown | + + + | Ethnic Group | Unknown | + + + Author + + + | Author | Gonsalo [employer] | + + + | Organization | [facility] | + + + | Address | Unknown | + + + | Phone | Unavailable | + + + Support + + +---------+ + | Name | Relationship | Address | Phone | + + +---------+ + | Lady Hastings | ECON | Unknown | | + + +---------+ + Care Team Providers + +------+ + | Care Demurrage Agent Name | Role | Phone | + +------+ + | Carlos DíazP | PCP | | + +------+ + Reason for Visit +--------+ + | Reason | Comments | +--------+ + | Other | TB TEST | +--------+ + Encounter Details +--------+ + + + + | Date | Type | Department | Care Team | Description | +--------+ + + + + | 02/07/ | Telephone | [facility] | Josefina Olmos | Other (TB TEST ) | | 2019 | | Gastroenterology | D, AUTO SERVICE MECHANIC | | | | | [address], | | | | | | [facility] [address] [place], | | | | | | [place] [address] | | | | | | [phone] | | | +--------+ + + + [...] [address] | | | | | | [place] [address] | | | | | | [phone] | | | | | | | | +--------+ + + + + | 03/28/ | Appointment | | Osito Bowen | | | 2019 | | | MD Lizbeth Castillo | | | | | | [address] | | | | | | [place] [address] | | | | | | [phone] | | | | | | | | +--------+ + + + + + +--------+ + + | Name | Priori | Associated Diagnoses | Order Schedule | | | ty | | | + +--------+ + + | Quantiferon TB Plus | Routin | Ulcerative colitis | Expected: | | | e | with rectal | 02/07/2019, Expires: | | | | bleeding, | 02/08/2020 | | | | unspecified location | | | | | (HCC) | | + +--------+ + + | CBC w/ diff | Routin | Ulcerative colitis | Expected: | | | e | with rectal | 02/14/2019, Expires: | | | | bleeding, | 02/15/2020 | | | | unspecified location | | | | | (HCC) | | + +--------+ + + | Sedimentation rate, automated | Routin | Ulcerative colitis | Expected: | | | e | with rectal | 02/14/2019, Expires: | | | | bleeding, | 02/15/2020 | | | | unspecified location | | | | | (HCC) | | + +--------+ + + | C DIFF With Reflex to CLPCR | Routin | Ulcerative colitis | Expected: | | | e | with rectal | 02/14/2019, Expires: | | | | bleeding, | 02/15/2020 | | | | unspecified location | | | | | (HCC) | | + +--------+ + + | Comprehensive metabolic panel | Routin | Ulcerative colitis | Expected: | | | e | with rectal | 02/14/2019, Expires: | | | | bleeding, | 02/15/2020 | | | | unspecified location | | | | | (HCC) | | + +--------+ + + | C-reactive protein | Routin | Ulcerative colitis | Expected: | | | e | with rectal | 02/14/2019, Expires: | | | | bleeding, | 02/15/2020 | | | | unspecified location | | | | | ([facility]) | | + +--------+ + + as of this encounter Visit Diagnoses + + | Diagnosis | + + | Ulcerative colitis with rectal bleeding, unspecified location ([facility]) - Primary | + +"
--- OUTSIDE RECORDS SUMMARY | ~2019-02-16 | XMS | Encounter Summary ---
Demographics + + + | Address | [address] | | | [place] [address] | + + + | Home Phone | | + + + | Preferred Language | Unknown | + + + | Marital Status | Single | + + + | Cheondoism Affiliation | Unknown | + + + | Race | Unknown | + + + | Ethnic Group | Unknown | + + + Author + + + | Author | Gonsalo Ye[employer] | + + + | Organization | [facility] | + + + | Address | Unknown | + + + | Phone | Unavailable | + + + Support + + +---------+ + | Name | Relationship | Address | Phone | + + +---------+ + | Lady Hastings | ECON | Unknown | | + + +---------+ + Care Team Providers + +------+ + | Care Assistant Guest Services Manager Name | Role | Phone | [...] + + | 01/04/ | Documentati | [facility] | Josefina Olmos | Other (SHABANA FONTENOT ON | | 2019 | on Only | Gastroenterology | D, MOBILE PARAMEDICAL EXAMINER | MESALAMINE ) | | | | [address], | | | | | | [address] [place], | | | | | | [place] [address] | | | | | | [phone] | | | +--------+ + + + [...] [address] | | | | | | [place] [address] | | | | | | [phone] | | | | | | | | +--------+ + + + + | 03/28/ | Appointment | | Osito Bowen | | | 2019 | | | MD Jonathan [address] | | | | | | Dr Ayou[address] [facility] | | | | | | [place] [address] | | | | | | [phone] | | | | | | | | +--------+ + + + + as of this encounter Visit Diagnoses Not on filein this encounter"
--- OUTSIDE RECORDS SUMMARY | ~2019-02-16 | XMS | Encounter Summary ---
Demographics + + + | Address | [address] | | | [place] [address] | + + + | Home Phone | | + + + | Preferred Language | Unknown | + + + | Marital Status | Single | + + + | Latter-Day Affiliation | Unknown | + + + | Race | Unknown | + + + | Ethnic Group | Unknown | + + + Author + + + | Author | [facility] [employer] | + + + | Organization | [facility] | + + + | Address | Unknown | + + + | Phone | Unavailable | + + + Support + + +---------+ + | Name | Relationship | Address | Phone | + + +---------+ + | Lady Hastings | ECON | Unknown | | + + +---------+ + Care Team Providers + +------+ + | Care Air Control/Anti Air Warfare Officer Name | Role | Phone | + +------+ + | Carlos Díaz | PCP | | + +------+ + Reason for Visit +--------+ + | Reason | Comments | +--------+ + | Other | medication denial | +--------+ + Encounter Details +--------+ + + + + | Date | Type | Department | Care Team | Description | +--------+ + + + + | 01/10/ | Telephone | [facility] | Josefina Olmos | Other (medication | | 2019 | | Gastroenterology | D, NUTRITION SERVICES ASSOCIATE | denial ) | | | | [address], | | | | | | [address] [place], | | | | | | [place] [address] | | | | | | [phone] | | | +--------+ + + + [...] [address] | | | | | | [place] [address] | | | | | | [phone] | | | | | | | | +--------+ + + + + | 03/28/ | Appointment | | Osito Bowen | | | 2019 | | | MD Lizbeth Castillo | | | | | | [address] | | | | | | [place] [address] | | | | | | [phone] | | | | | | | | +--------+ + + + + as of this encounter Visit Diagnoses Not on filein this encounter"
--- OUTSIDE RECORDS SUMMARY | ~2019-02-16 | XMS | Encounter Summary ---
Demographics + + + | Address | [address] | | | [place] [address] | + + + | Home Phone [...] + + + | Author | [facility] [employer] | + + + | Organization | [facility] | + + + | Address | Unknown | + + + | Phone | Unavailable | + + + Support + + +---------+ + | Name | Relationship | Address | Phone | + + +---------+ + | Lady Hastings | ECON | Unknown | | + + +---------+ + Care Team Providers + +------+ + | Care Ssis Ssrs Developer Name | Role | Phone | + +------+ + | Carlos Díaz | PCP | | + +------+ + Reason for Visit +--------+ + | Reason | Comments | +--------+ + | Other | PA FOR MEGANY[facility]BEATRIZ | +--------+ + Encounter Details +--------+ + + + + | Date | Type | Department | Care Team | Description | +--------+ + + + + | 01/30/ | Telephone | [facility] | Josefina Olmos | Other (SHABANA FOR | | 2018 | | Gastroenterology | D, COUNCIL ON AGING DIRECTOR | ENTYVIO ) | | | | [address], | | | | | | [facility] [address] [place], | | | | | | [place] [address] | | | | | | [phone] | | | +--------+ + + + [...] | | | | | [place] [address] | | | | | | [phone] | | | | | | | | +--------+ + + + + | 03/28/ | Appointment | | Osito Bowen | | | 2018 | | | MD Lizbeth Castillo | | | | | | [address] | | | | | | [place] [address] | | | | | | [phone] | | | | | | | | +--------+ + + + + as of this encounter Visit Diagnoses Not on filein this encounter"
--- OUTSIDE RECORDS SUMMARY | ~2019-02-16 | XMS | Encounter Summary ---
Demographics + + + | Address | [address] | | | [place] [address] | + + + | Home Phone | | + + + | Preferred Language | Unknown | + + + | Marital Status | Single | + + + | Tenriism Affiliation | Unknown | + + + | Race | Unknown | + + + | Ethnic Group | Unknown | + + + Author + + + | Author | [employer] | + + + | Organization | [facility] | + + + | Address | Unknown | + + + | Phone | Unavailable | + + + Support + + +---------+ + | Name | Relationship | Address | Phone | + + +---------+ + | Lady Hastings | ECON | Unknown | | + + +---------+ + Care Team Providers + +------+ + | Care Banking Paralegal Name | Role | Phone | + +------+ + | Arjun CarlosAlegre | PCP | | + +------+ + Reason for Visit +--------+ + | Reason | Comments | +--------+ + | Other | [facility] records from 01/01/19 | +--------+ + | Tasha | [facility] Lab results 04/08/18 | +--------+ + Encounter Details +--------+ + + + + | Date | Type | Department | Care Team | Description | +--------+ + + + + | 01/04/ | Documentati | [facility] | Josefina Olmos | Other ([facility] | | 2019 | on Only | Gastroenterology | D, AIR CONDITIONING SUPERVISOR | [facility] Init[facility]atives | | | | [address], | | records from | | | | [address], | | 01/01/19); Other | | | | [place] [address] | | ([facility] | | | | [phone] | | Lab results 04/08/18) | +--------+ + + + + Social [...] | | | | | | [place] [address] | | | | | | [phone] | | | | | | | | +--------+ + + + + | 03/28/ | Appointment | | Osito Bowen | | | 2018 | | | MD Lizbeth Castillo | | | | | | Dr [address] | | | | | | [place] [address] | | | | | | [phone] | | | | | | | | +--------+ + + + + as of this encounter Visit Diagnoses Not on filein this encounter"
--- OUTSIDE RECORDS SUMMARY | ~2019-02-16 | XMS | Encounter Summary ---
Demographics + + + | Address | [address] | | | [place] [address] | + + + | Home Phone | | + + + | Preferred Language | Unknown | + + + | Marital Status | Single | + + + | Jehovah'S Witness Affiliation | Unknown | + + + | Race | Unknown | + + + | Ethnic Group | Unknown | + + + Author + + + | Author | Gonsalo Osito | + + + | Organization | [facility] | + + + | Address | Unknown | + + + | Phone | Unavailable | + + + Support + + +---------+ + | Name | Relationship | Address | Phone | + + +---------+ + | Lady Hastings | ECON | Unknown | | + + +---------+ + Care Team Providers + +------+ + | Care Ocean Export Agent Name | Role | Phone | + +------+ + | Carlos DíazP | PCP | | + +------+ + Encounter Details +--------+ + + + + | Date | Type | Department | Care Team | Description | +--------+ + + + + | 01/18/ | Orders Only | [facility] | Josefina Olmos | Ulcerative colitis | | 2019 | | Gastroenterology | D, POWDERER | with rectal | | | | [address], | | bleeding, | | | | [address] [place], | | unspecified location | | | | [place] [address] | | ([facility]) (Primary Dx); | | | | [phone] | | BRBPR (bright red | | | | | | blood per rectum) | +--------+ + + + [...] [address] | | | | | | [place] [address] | | | | | | [phone] | | | | | | | | +--------+ + + + + | 03/28/ | Appointment | | Osito Bowen | | | 2019 | | | MD Lizbeth Castillo | | | | | | [address] | | | | | | [place] [address] | | | | | | [phone] | | | | | | | | +--------+ + + + + as of this encounter Visit Diagnoses + + | Diagnosis | + + | Ulcerative colitis with rectal bleeding, unspecified location (HCC) - Primary | + + | BRBPR (bright red blood per rectum) | + + | Hemorrhage of rectum and anus | + +"
--- OUTSIDE RECORDS SUMMARY | ~2019-02-16 | XMS | Encounter Summary ---
Demographics + + + | Address | [address] | | | [place] [address] | + + + | Home Phone | | + + + | Preferred Language | Unknown | + + + | Marital Status | Single | + + + | Roman Catholic Affiliation | Unknown | + + + | Race | Unknown | + + + | Ethnic Group | Unknown | + + + Author + + + | Author | [employer] | + + + | Organization | [facility] | + + + | Address | Unknown | + + + | Phone | Unavailable | + + + Support + + +---------+ + | Name | Relationship | Address | Phone | + + +---------+ + | Lady Hastings | ECON | Unknown | | + + +---------+ + Care Team Providers + +------+ + | Care Oracle Apex Developer Name | Role | Phone | + +------+ + | Carlos Díaz | PCP | | + +------+ + Reason for Visit + + + | Reason | Comments | + + + | Ulcerative Colitis | | + + + Consult and Treat (Routine) + + + + + + + | Status | Reason | Specialty | Diagnoses / | Referred By | Referred To | | | | | Procedures | Contact | Contact | + + + + + + + | Authorized | Specialty | Gastroenterol | Diagnoses | Arjun, | [facility], | | | Services | ogy | Ulcerative | [facility] | Osito Castillo MD | | | Required | | colitis, | [address] | [address] | | | | | unspecified | [address] | [address] | | | | | with rectal | [place], | [place] | | | | | bleeding | [place] [address] | [address] Phone: | | | | | [facility]) | Phone: | [phone] | | | | | | [phone] | Fax: | | | | | | Fax: | [phone] | | | | | | [phone] | | + + + + + + + Encounter Details +--------+---------+ + + + | Date | Type | Department | Care Team | Description | +--------+---------+ + + + | 01/03/ | Office | [facility] | Osito Bowen | Ulcerative colitis | | 2019 | Visit | Gastroenterology | MD Jonathan [address] | with rectal | | | | [address], | [address] | bleeding, | | | | [address] [place], | [place] [address] | unspecified location | | | | [place] [address] | [phone] | (HCC) (Primary Dx); | | | | [phone] | | BRBPR (bright red | | | | | | blood per rectum) | +--------+---------+ + + + Social History [...] + + + | Blood Pressure | 137/84 | 01/03/2019 3:11 PM PDT | + + + + | Pulse | 81 | 01/03/2019 3:11 PM PDT | + + + + | Temperature | - | - | + + + + | Respiratory Rate | - | - | + + + + | Oxygen Saturation | - | - | + + + + | Inhaled Oxygen | - | - | | Concentration | | | + + + + | Weight | 81.2 kg (179 lb) | 01/03/2019 3:11 PM PDT | + + + + | Height | 160 cm (5' 3") | 01/03/2019 3:11 PM PDT | + + + + | Body Mass Index | 31.71 | 01/03/2019 3:11 PM PDT | + + + + in this encounter Instructions Patient Instructions - Osito Bowen MD - 01/03/2019 3:20 PM PDTFormatting of this note may be different from the original. Colonoscopy A camera attached to a flexible tube with a viewing lens is used to take video pictures. Colonoscopyis a test to view the inside of your lower digestive tract (colon and rectum). Sometimes it can show the last part of the small intestine (ileum).During the test, smal l pieces of tissue may be removed for testing. This is called a biopsy. Small growths, such as polyps, may also be removed. Why is colonoscopy done? The test is done to help look for colon cancer. And it can help find the source of abdomina l pain,bleeding,and changes in bowel habits. It may be needed once a year, depending on factors such as your: Age Health history Family health history Symptoms Results from any prior colonoscopy Risks and possible complications These include: Bleeding A puncture or tear in the colon Risks of anesthesia A cancer lesion not being seen Getting ready To prepare for the test: Talk with your healthcare provider about the risks of the test (see below). Also ask you r healthcare provider about alternatives to the test. Tell your healthcare provider about any medicines you take. Alsotell him or her about any health conditions you may have. Make sure your rectum and colon are empty for the test. Follow the diet and bowel prep i nstructions exactly. If you don t, the test may need to be rescheduled. Plan for a friend or family member to drive you home after the test. Colonoscopy provides an inside view of the entire colon. You may discuss the results with your doctor right away or at a future visit. During the test The test is usually done in the hospital on an outpatient basis. This means you go home the same day. The procedure takes about 30minutes. During that time: You are given relaxing (sedating) medicine through an IV line.You may be drowsy, or fu lly asleep. The healthcare provider will first give you a physical exam to check for anal andrecta l problems. Then the anus is lubricated and the scope inserted. If you are awake, you may have a feeling similar to needing to have a bowelmovement. Y ou may also feel pressure as air is pumped into the colon. It Celia to pass gas during the procedure. Biopsy, polyp removal, or other treatments may be done during the test. After the test You may have gas right after the test. It can help to try to pass it to help prevent later bloating. Your healthcare provider may discuss the results with you right away. Or you may n eed to schedule a follow-up visit to talk about the results. After the test, you can go back to your normal eating andother activities. You may be tired from the sedation and need to rest for a few hours. Date Last Reviewed: 08/11/201619997193-3977 [employer]. [address] [place] [address]. All righ ts reserved. This information is not intended as a substitute for professional medical care. Always follow your healthcare professional's instructions. in this encounter Progress Notes Osito Bowen MD - 01/03/2019 3:20 PM PDTFormatting of this note may be different f rom the original. Subjective: Chief Complaint Patient presents with Ulcerative Colitis Patient ID: Ria Hastings is a 38 y.o. female resents for evaluation of ulcers colitis. Piyush justice was diagnosed with ulcerative colitis in 2010. The original distribution was from the splenic flexure distal. In the past she has been on steroids, Humira, and Remicade. However , she has not been on any medications for the last 3 years except very recently. Been to the ER 3 times in the last several months. This has been for abdominal pain, diarrhea, and bloo d in stool. She has even required blood transfusion for anemia. She is currently on predniso ne for presumed ulcerative colitis flare. However, she has not had any type of endoscopy. Shavonne le is having a minimum of 10 loose bowel movements per day. Most of these contain blood. She is also having abdominal pain. Steroids to help her feel better. She states that the reason she stopped Humira and Remicade because they were no longer working. HPI The following portions of the patient's history were reviewed and updated as appropriate an d is available elsewhere in the record: allergies, current medications, past family history, past medical history, past social history, past surgical history and problem list. Review of Systems Constitutional: Positive for fatigue and fever. Negative for activity change, appetite coronel ge, chills, diaphoresis and unexpected weight change. HENT: Negative for ear pain, mouth sores, nosebleeds, sore throat, trouble swallowing and v oice change. Eyes: Negative for pain, redness and visual disturbance. Respiratory: Positive for cough. Negative for choking, chest tightness, shortness of breath and wheezing. Cardiovascular: Negative for chest pain, palpitations and leg swelling. Gastrointestinal: Positive for abdominal pain, blood in stool and diarrhea. Negative for ab dominal distention, anal bleeding, constipation, nausea, rectal pain and vomiting. Endocrine: Positive for polydipsia. Negative for cold intolerance and heat intolerance. Genitourinary: Negative for difficulty urinating, dysuria, frequency, hematuria, urgency an d vaginal bleeding. Musculoskeletal: Positive for joint swelling and neck pain. Negative for arthralgias, back pain, gait problem, myalgias and neck stiffness. Skin: Negative for color change, rash and wound. Allergic/Immunologic: Negative for environmental allergies, food allergies and immunocompro mised state. Neurological: Negative for dizziness, tremors, seizures, syncope, weakness, light-headednes s and headaches. Hematological: Negative for adenopathy. Does not bruise/bleed easily. Psychiatric/Behavioral: Negative for agitation, behavioral problems, confusion, dysphoric m ood, hallucinations and suicidal ideas. The patient is not nervous/anxious. 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 Social History Main Topics Smoking status: Never Smoker Smokeless tobacco: Never Used Alcohol use No Drug use: Yes Types: Marijuana Sexual activity: Not on file Other Topics Concern Not on file Social History Narrative No narrative on file Past Surgical History Procedure Laterality Date COLONOSCOPY 2016 [facility] Prior to Admission medications Medication Sig Start Date End Date Taking? Authorizing Provider acetaminophen (TYLENOL) 325 MG tablet Take 650 mg by mouth. Yes Historical Provider predniSONE (DELTASONE) 10 MG tablet 11/30/18 01/03/19 Yes Historical Provider budesonide (ENTOCORT EC) 3 MG delayed replease capsule Take 3 capsules by mouth every morni ng for 180 days. 01/03/19 07/02/19 Osito Bowen MD mesalamine (CANASA) [address] 1 suppository rectally nightly for 30 days. 02/02/19 Osito Bowen MD predniSONE (DELTASONE) 10 MG tablet Take 4 tabs PO daily for 2 weeks, then 2 tabs PO daily for 2 weeks, then 1 tab PO daily for 1 week, then 1/2 tab daily PO until gone 01/03/19 Jennie Bowen MD Objective: Physical Exam Vitals: 01/03/19 1511 BP: 137/84 BP Location: Left upper arm Patient Position: Sitting Pulse: 81 Weight: 81.2 kg (179 lb) Height: 1.6 m (5' 3") Body mass index is 31.71 kg/m. Gen: NAD, appears well-developed CV: Regular Lungs: CTAB, Effort normal and breath sounds normal, No respiratory distress. Abd: Generalized tenderness, +BS, no masses or organomegaly, no rebound, no guarding Extremities: Within normal limits, no amputations, normal range of motion Head: Normocephalic. Mouth/Throat: Oropharynx is clear and moist and mucous membranes are normal Eyes: Conjunctivae and EOM are normal Skin: Erythema of anterior chest skin which she attributes to vitiligo, tattoos Neuro: Intact and symmetric grossly Psychiatric: Normal mood and affect, behavior is normal, judgment and thought content shar l. No results found for: WBC, HGB, HCT, MCV, PLT No results found for: AST, ALT, GGT, ALKPHOS, BILITOT, CREATININE, ALB, LIPASE No results found for: INR, PROTIME Assessment and Plan: Ulcerative colitis - Diagnosed in 2010 - Based on history of biologic she likely has moderate to severe disease. - Do not know current status of disease, however - Previously tried and failed Humira and Remicade - In order to stage current disease I recommend colonoscopy - Risks, benefits, and alternatives of the procedure were discussed in detail and patient is willing to proceed. - We will schedule with IV sedation - I recommend she continue her steroid taper - I will also add budesonide and Canasa suppositories to try to get disease controlled - We discussed pathogenesis and natural history of ulcerative colitis - Discussed preventative measures including flu shot, good nutrition, and calcium suppleme nt - Await results Thank you for allowing me to participate in the care of this patient. Please don't hesitat e to call with any questions. Osito Bowen MD [facility] Gastroenterology 01/03/2019 This progress note was dictated using [employer] voice recognition software. Document was revie wed at time of dictation but [id number] errors may be present. Please call with any quest ions or clarifications. in this encounter Plan of Treatment +--------+ + + + + | Date | Type | Specialty | Care Team | Description | +--------+ + + + + | 02/28/ | Office | Gastroenterology | Osito Bowen | | | 2018 | Visit | | MD Lizbeth Castillo | | | | | | Dr [address] [facility] | | | | | | [place] [address] | | | | | | [phone] | | | | | | | | +--------+ + + + + | 03/28/ | Appointment | | Osito Bowen | | | 2019 | | | MD Jonathan [address] | | | | | | [address] | | | | | | [place] [address] | | | | | | [phone] | | | | | | | | +--------+ + + + + + +--------+ + + | Name | Priori | Associated Diagnoses | Order Schedule | | | ty | | | + +--------+ + + | Case Request Operating Room: | Routin | Ulcerative colitis | Expected: | | COLONOSCOPY | e | with rectal | 01/26/2019, Expires: | | | | bleeding, | 01/04/2020 | | | | unspecified location | | | | | (HCC) BRBPR | | | | | (bright red blood | | | | | per rectum) | | + +--------+ + + as of this encounter Visit Diagnoses + + | Diagnosis | + + | Ulcerative colitis with rectal bleeding, unspecified location (HCC) - Primary | + + | BRBPR (bright red blood per rectum) | + + | Hemorrhage of rectum and anus | + + Administered Medications + +--------+ +------+------+------+ | Medication Order | MAR | Action | Dose | Rate | Site | | | Action | Date | | | | + +--------+ +------+------+------+ | PPD Test | Given | 04/17/2014 | | | | | | | 00:00 | | | | | | | PDT | | | | + +--------+ +------+------+------+ +---+---+ | | | +---+---+ in this encounter
--- OUTSIDE RECORDS SUMMARY | ~2019-02-16 | XMS | Encounter Summary ---
Demographics + + + | Address | [address] | | | [place] [address] | + + + | Home Phone | | + + + | Preferred Language | Unknown | + + + | Marital Status | Single | + + + | Latter Day Affiliation | Unknown | + + + | Race | Unknown | + + + | Ethnic Group | Unknown | + + + Author + + + | Author | [employer] | + + + | Organization | [facility] [employer] [facility] | + + + | Address | Unknown | + + + | Phone | Unavailable | + + + Support + + +---------+ + | Name | Relationship | Address | Phone | + + +---------+ + | Lady Hastings | ECON | Unknown | | + + +---------+ + Care Team Providers + +------+ + | Care Fabricator Artificial Breast Name | Role | Phone | + [...] | | | | bleeding | [place] [address] | [address] Phone: | | | | | [facility]) | Phone: | [phone] | | | | | | [phone] | Fax: | | | | | | Fax: | [phone] | | | | | | [phone] | | + + + + + + + Encounter Details +--------+---------+ + + + | Date | Type | Department | Care Team | Description | +--------+---------+ + + + | 01/03/ | Office | [facility] | Osito oBwen | Ulcerative colitis | | 2019 | Visit | Gastroenterology | MD Jonathan [address] | with rectal | | | | [address], | [address] | bleeding, | | | | [address] [place], | [place] [address] | unspecified location | | | | [place] [address] | [phone] | (HCC) (Primary Dx); | | | | [phone] | | BRBPR (bright red | | [...] for a few hours. Date Last Reviewed: 08/11/201619997606-1320 [employer]. [address] [place] [address]. All righ ts reserved. This information is [...] call with any questions. Osito Bowen MD [facility] Gastroenterology 01/03/2019 This progress note was dictated using [employer] voice recognition software. Document was revie wed at time of dictation but [id number] errors may be present. Please call with [...] | | | | | Dr [address]b [facility] | | | | | | [place] [address] | | | | | | [phone] | | | | | | | | +--------+ + + + + | 03/28/ | Appointment | | Osito Bowen | | | 2019 | | | MD Jonathan [address] | | | | | | [address] | | | | | | [place] [address] | | | | | | [phone] | | | | | | | [...]
--- OUTSIDE RECORDS SUMMARY | ~2019-02-16 | XMS | Encounter Summary ---
Demographics + + + | Address | [address] | | | [place] [address] | + + + | Home Phone | | + + + | Preferred Language | Unknown | + + + | Marital Status | Single | + + + | Jew Affiliation | Unknown | + + + | Race | Unknown | + + + | Ethnic Group | Unknown | + + + Author + + + | Author | [employer] | + + + | Organization | [facility] [facility] | + + + | Address | Unknown | + + + | Phone | Unavailable | + + + Support + + +---------+ + | Name | Relationship | Address | Phone | + + +---------+ + | Lady Hastings | ECON | Unknown | | + + +---------+ + Care Team Providers + +------+ + | Care Air Drier Machine Operator Name | Role | Phone | + +------+ + | Carlos DíazP | PCP | | + +------+ + Encounter Details +--------+ + + + + | Date | Type | Department | Care Team | Description | +--------+ + + + + | 01/18/ | Orders Only | [facility] | Josefina Olmos | Ulcerative colitis | | 2019 | | Gastroenterology | D, DIETETIC AIDE | with rectal | | | | [address], | | bleeding, | | | | [address] [place], | | unspecified location | | | | [place] [address] | | ([facility]) (Primary Dx); | | | | [phone] | | BRBPR (bright red | | [...] [address] | | | | | | [place] [address] | | | | | | [phone] | | | | | | | | +--------+ + + + + | 03/28/ | Appointment | | Osito Bowen | | | 2019 | | | MD Lizbeth Castillo | | | | | | [address] | | | | | | [place] [address] | | | | | | [phone] | | | | | | | [...]
--- OUTSIDE RECORDS SUMMARY | ~2019-02-16 | XMS | Encounter Summary ---
Demographics + + + | Address | [address] | | | [place] [address] | + + + | Home Phone | | + + + | Preferred Language | Unknown | + + + | Marital Status | Single | + + + | Baptist Affiliation | Unknown | + + + | Race | Unknown | + + + | Ethnic Group | Unknown | + + + Author + + + | Author | [employer] | + + + | Organization | [facility] | + + + | Address | Unknown | + + + | Phone | Unavailable | + + + Support + + +---------+ + | Name | Relationship | Address | Phone | + + +---------+ + | Lady Hastings | ECON | Unknown | | + + +---------+ + Care Team Providers + +------+ + | Care Channel Business Manager Name | Role | Phone [...] + + | 01/30/ | Telephone | [facility] | Josefina Olmos | Other (SHABANA FOR | | 2018 | | Gastroenterology | D, HEAD OF PRECISION TARGETING | ENTYVIO ) | | | | [address], | | | | | | [facility] [[email or web address] [address] [place], | | | | | | [place] [address] | | | | | | [phone] | | | +--------+ + + + [...] | | | | | [place] [address] | | | | | | [phone] | | | | | | | | +--------+ + + + + | 03/28/ | Appointment | | Osito Bowen | | | 2018 | | | MD Lizbeth Castillo | | | | | | [address] | | | | | | [place] [address] | | | | | | [phone] | | | | | | | | +--------+ + + + + as of this encounter Visit Diagnoses Not on filein this encounter"
--- OUTSIDE RECORDS SUMMARY | ~2019-02-16 | XMS | Encounter Summary ---
Demographics + + + | Address | [address] | | | [place] [address] | + + + | Home Phone | | + + + | Preferred Language | Unknown | + + + | Marital Status | Single | + + + | Advent Affiliation | Unknown | + + + | Race | Unknown | + + + | Ethnic Group | Unknown | + + + Author + + + | Author | [employer] | + + + | Organization | [facility] [employer] [facility] | + + + | Address | Unknown | + + + | Phone | Unavailable | + + + Support + + +---------+ + | Name | Relationship | Address | Phone | + + +---------+ + | Lady Hastings | ECON | Unknown | | + + +---------+ + Care Team Providers + +------+ + | Care Filtering Machine Tender Name | Role | Phone | + [...] + + | 12/08/ | Documentati | [facility] | Nayalaminnatasha Osito | Other (REFERRAL FROM | | 2019 | on Only | Gastroenterology | MD Jonathan [address] | MEENAKSHI CHRISTIANSON) | | | | [address], | [address] | | | | | [address] [place], | [place] [address] | | | | | [place] [address] | [phone] | | | | | [phone] | | | +--------+ + + + [...] | | | | | | [place] [address] | | | | | | [phone] | | | | | | | | +--------+ + + + + | 03/28/ | Appointment | | Osito Bowen | | | 2019 | | | MD Lizbeth Castillo | | | | | | Dr [address] | | | | | | [place] [address] | | | | | | [phone] | | | | | | | | +--------+ + + + + as of this encounter Visit Diagnoses Not on filein this encounter"
--- OUTSIDE RECORDS SUMMARY | ~2019-02-16 | XMS | Encounter Summary ---
Demographics + + + | Address | [address] | | | [place] [address] | + + + | Home Phone | | + + + | Preferred Language | Unknown | + + + | Marital Status | Single | + + + | Judaism Affiliation | Unknown | + + + | Race | Unknown | + + + | Ethnic Group | Unknown | + + + Author + + + | Author | [employer] | + + + | Organization | [facility] | + + + | Address | Unknown | + + + | Phone | Unavailable | + + + Support + + +---------+ + | Name | Relationship | Address | Phone | + + +---------+ + | Lady Hastings | ECON | Unknown | | + + +---------+ + Care Team Providers + +------+ + | Care Manager Client Service Name | Role | Phone | + +------+ + | Carlos Díaz | PCP | | + +------+ + Encounter Details +--------+ + + + + | Date | Type | Department | Care Team | Description | +--------+ + + + + | 02/14/ | Orders Only | [facility] | Josefina Olmos | | | 2019 | | Gastroenterology | D, CHRISTINE | | | | | [address], | | | | | | [facility] [address] [place], | | | | | | [place] [address] | | | | | | [phone] | | | +--------+ + + + [...] | | | | | [place] [address] | | | | | | [phone] | | | | | | | | +--------+ + + + + | 03/28/ | Appointment | | Osito Bowen | | | 2019 | | | MD Lizbeth Castillo | | | | | | Dr [address] | | | | | | [place] [address] | | | | | | [phone] | | | | | | | | +--------+ + + + + as of this encounter Visit Diagnoses Not on filein this encounter"
--- OUTSIDE RECORDS SUMMARY | ~2019-02-16 | XMS | Clinical Summary ---
Demographics + + + | Address | [address] | | | [place] [address] | + + + | Home Phone | | + + + | Preferred Language | Unknown | + + + | Marital Status | Unknown | + + + | Adventism Affiliation | Unknown | + + + | Race | Unknown | + + + | Ethnic Group | Unknown | + + + Author + + + | Author | [facility] | + + + | Organization | [facility] | + + + | Address | Unknown | + + + | Phone | Unavailable | + + + Care Team Providers + +------+ + | Care Tractor Sweeper Driver Name | Role | Phone | + +------+ + PP | Unavailable | + +------+ + Source Comments ION is fully live on both [facility] Ambulatory and [facility] InPatient.[facility] Allergies Not on File Current Medications Not [...] (Flu) | | | | | vaccination (Season | 9 | | | | Ended) | | | | + + + + + Results Not on filefrom Last 3 Months"
--- OUTSIDE RECORDS SUMMARY | ~2019-02-16 | XMS | Encounter Summary ---
Demographics + + + | Address | [address] | | | [place] [address] | + + + | Home Phone [...] + + + | Author | [employer]OOOM[employer] | + + + | Organization | [facility] | + + + | Address | Unknown | + + + | Phone | Unavailable | + + + Support + + +---------+ + | Name | Relationship | Address | Phone | + + +---------+ + | Lady Hastings | ECON | Unknown | | + + +---------+ + Care Team Providers + +------+ + | Care Quality Control Technician Name | Role | Phone | [...] + + | 01/26/ | Hospital | [facility] | Osito Bowen | Ulcerative colitis | | 2019 | Encounter | REGIONAL SURGERY | MD Jonathan [address] | with rectal bleeding | | | | CENTER INTRA OP | [address] | ([facility]); Ulcerative | | | | [address] | [place] [address] | colitis with rectal | | | | [place], [place] | [phone] | bleeding, | | | | [address] | | unspecified location | | | | [phone] | | ([facility]); BRBPR | | | | [...] may be different f rom the original. [facility] Service: Gastroenterology Brief Post-op Discharge Note DISCHARGE [...] Your Medications These medications were sent to [facility] [address] [facility] [place] - [facility] [address] [facility] [place] [address] metroNIDAZOLE 500 MG tablet Osito Bowen MD [...] [address] | | | | | | [place] [address] | | | | | | [phone] | | | | | | | | +--------+ + + + + | 03/28/ | Appointment | | Osito Bowen | | | 2018 | | | MD Lizbeth Castillo | | | | | | [address] | | | | | | [place] [address] | | | | | | [phone] | | | | | | | [...] location | | | | | | ([facility]) BRBPR | | | | [...] no evidence of | | | dysplasia. [facility]:C2NR GROSS DESCRIPTION: A. The specimen is [...] LABORATORY: The technical component was performed by [employer] | | | [employer], [address] [facility] [address] (Hotel Service Manager: | | | Loraine Chiu MD; CLIA# [id number]). The professional interpretation was | | | performed by [employer], [facility], [address] [place] [address]. Diagnostician: Elio Sosa MD | | | Pathologist Electronically Signed 2019 | | + + + + +---------+ + + | Performing | Address | City/[facility] | Phone Number | | Organization | [...] + + + | [facility] | [address] [facility] [address] [facility] | [place] [address] | [phone] | | LABORATORY | [address] | | [...]
--- OUTSIDE RECORDS SUMMARY | ~2019-02-16 | XMS | Encounter Summary ---
Demographics + + + | Address | [address] | | | [place] [address] | + + + | Home Phone | | + + + | Preferred Language | Unknown | + + + | Marital Status | Single | + + + | Bahai Affiliation | Unknown | + + + | Race | Unknown | + + + | Ethnic Group | Unknown | + + + Author + + + | Author | [employer] | + + + | Organization | [facility] | + + + | Address | Unknown | + + + | Phone | Unavailable | + + + Support + + +---------+ + | Name | Relationship | Address | Phone | + + +---------+ + | Lady Hastings | ECON | Unknown | | + + +---------+ + Care Team Providers + +------+ + | Care Business Law Teacher Name | Role | Phone | + +------+ + | ArjunCarlos Luis GALVEZ | PCP | | + +------+ + Reason for Visit +--------+ + | Reason | Comments | +--------+ + | Other | [facility] incomplete lab 02/14/19 | +--------+ + Encounter Details +--------+ + + + + | Date | Type | Department | Care Team | Description | +--------+ + + + + | 02/14/ | Documentati | [facility] | Josefina Olmos | Other ([facility] | | 2019 | on Only | Gastroenterology | D, PALLETISER OPERATOR | incomplete lab | | | | [address], | | 02/14/19) | | | | [address] [place], | | | | | | [place] [address] | | | | | | [phone] | | | +--------+ + + + [...] | | | | | | [address] | | | | | | [place] [address] | | | | | | [phone] | | | | | | | | +--------+ + + + + | 03/28/ | Appointment | | Osito Bowen | | | 2019 | | | MD Lizbeth Castillo | | | | | | Dr [address] | | | | | | [place] [address] | | | | | | [phone] | | | | | | | | +--------+ + + + + as of this encounter Visit Diagnoses Not on filein this encounter"
--- OUTSIDE RECORDS SUMMARY | ~2019-02-16 | XMS | Encounter Summary ---
Demographics + + + | Address | [address] | | | [place] [address] | + + + | Home Phone | | + + + | Preferred Language | Unknown | + + + | Marital Status | Single | + + + | Oriental Orthodox Affiliation | Unknown | + + + | Race | Unknown | + + + | Ethnic Group | Unknown | + + + Author + + + | Author | [employer] W[employer] | + + + | Organization | [facility] | + + + | Address | Unknown | + + + | Phone | Unavailable | + + + Support + + +---------+ + | Name | Relationship | Address | Phone | + + +---------+ + | Lady Hastings | ECON | Unknown | | + + +---------+ + Care Team Providers + +------+ + | Care Wire Dropper Name | Role | Phone | + +------+ + | Carlos DíazP | PCP | | + +------+ + Reason for Visit +--------+ + | Reason | Comments | +--------+ + | Other | | +--------+ + Encounter Details +--------+ + + + + | Date | Type | Department | Care Team | Description | +--------+ + + + + | 01/06/ | Telephone | [facility] | Josefina Olmos | Other | | 2019 | | Gastroenterology | D, ENTRY LEVEL MANUFACTURING ENGINEER | | | | | [address], | | | | | | [facility] [address] [place], | | | | | | [place] [address] | | | | | | [phone] | | | +--------+ + + + [...] | | | | | | [place] [address] | | | | | | [phone] | | | | | | | | +--------+ + + + + | 03/28/ | Appointment | | Osito Bowen | | | 2019 | | | MD Jonathan [address] | | | | | | [address] | | | | | | [place] [address] | | | | | | [phone] | | | | | | | | +--------+ + + + + as of this encounter Visit Diagnoses Not on filein this encounter"
--- OUTSIDE RECORDS SUMMARY | ~2019-02-16 | XMS | Encounter Summary ---
Demographics + + + | Address | [address] | | | [place] [address] | + + + | Home Phone [...] + + + | Author | [employer] | + + + | Organization | [facility] | + + + | Address | Unknown | + + + | Phone | Unavailable | + + + Support + + +---------+ + | Name | Relationship | Address | Phone | + + +---------+ + | Lady Hastings | ECON | Unknown | | + + +---------+ + Care Team Providers + +------+ + | Care Early Learning Teacher Name | Role | Phone | [...] + + | 02/07/ | Telephone | [facility] | Josefina Olmos | Other (TB TEST ) | | 2019 | | Gastroenterology | D, BRAKE REPAIR MECHANIC | | | | | [address], | | | | | | [facility] [address] [place], | | | | | | [place] [address] | | | | | | [phone] | | | +--------+ + + + [...] | | | | | [place] [address] | | | | | | [phone] | | | | | | | | +--------+ + + + + | 03/28/ | Appointment | | Osito Bowen | | | 2019 | | | MD Lizbeth Castillo | | | | | | [address] | | | | | | [place] [address] | | | | | | [phone] | | | | | | | [...] unspecified location | | | | | ([facility]) | | + +--------+ + + as of this encounter Visit Diagnoses + + | Diagnosis | + + | Ulcerative colitis with rectal bleeding, unspecified location ([facility]) - Primary | + +"
--- OUTSIDE RECORDS SUMMARY | ~2019-02-16 | XMS | Encounter Summary ---
Demographics + + + | Address | [address] | | | [place] [address] | + + + | Home Phone [...] + + + | Author | [employer] | + + + | Organization | [facility] | + + + | Address | Unknown | + + + | Phone | Unavailable | + + + Support + + +---------+ + | Name | Relationship | Address | Phone | + + +---------+ + | Lady Hastings | ECON | Unknown | | + + +---------+ + Care Team Providers + +------+ + | Care Solar Installation Foreman Name | Role | Phone | + +------+ + | Carlos Díaz | PCP | | + +------+ + Reason for Visit +--------+ + | Reason | Comments | +--------+ + | Other | TB Test/Infusion Problem | +--------+ + Encounter Details +--------+ + + + + | Date | Type | Department | Care Team | Description | +--------+ + + + + | 02/14/ | Telephone | [facility] | Josefina Olmos | Other (TB | | 2019 | | Gastroenterology | D, FOOD SERVICE CLERK | Test/Infusion | | | | [address], | | Problem ) | | | | [address] [place], | | | | | | [place] [address] | | | | | | [phone] | | | +--------+ + + + [...] | | | | | [place] [address] | | | | | | [phone] | | | | | | | | +--------+ + + + + | 03/28/ | Appointment | | Osito Bowen | | | 2019 | | | MD Jonathan [address] | | | | | | [address] | | | | | | [place] [address] | | | | | | [phone] | | | | | | | | +--------+ + + + + + +--------+ + + | Name | Priori | Associated Diagnoses | Order Schedule | | | ty | | | + +--------+ + + | T Spot TB (AMB ONLY) | Routin | Ulcerative colitis | Expected: | | | e | with complication, | 02/14/2019, Expires: | | | | unspecified location | 02/15/2020 | | | | (HCC) | | + +--------+ + + as of this encounter Visit Diagnoses + + | Diagnosis | + + | Ulcerative colitis with complication, unspecified location (HCC) - Primary | + + | Ulcerative colitis with rectal bleeding, unspecified location (HCC) | + + | BRBPR (bright red blood per rectum) | + + | Hemorrhage of rectum and anus | + +"
--- OUTSIDE RECORDS SUMMARY | ~2019-02-16 | XMS | Encounter Summary ---
Demographics + + + | Address | [address] | | | [place] [address] | + + + | Home Phone | | + + + | Preferred Language | Unknown | + + + | Marital Status | Single | + + + | Gnosticism Affiliation | Unknown | + + + | Race | Unknown | + + + | Ethnic Group | Unknown | + + + Author + + + | Author | [employer] | + + + | Organization | [facility] | + + + | Address | Unknown | + + + | Phone | Unavailable | + + + Support + + +---------+ + | Name | Relationship | Address | Phone | + + +---------+ + | Lady Hastings | ECON | Unknown | | + + +---------+ + Care Team Providers + +------+ + | Care Deputy Sheriff Court Services Name | Role | Phone | + +------+ + | Carlos Díaz | PCP | | + +------+ + Reason for Visit +--------+ + | Reason | Comments | +--------+ + | Other | pre-procedure call | +--------+ + Encounter Details +--------+ + + + + | Date | Type | Department | Care Team | Description | +--------+ + + + + | 01/23/ | Telephone | [facility] | Josefina Olmos | Other (pre-procedure | | 2018 | | Gastroenterology | D, LIMEROCK TOWER LOADER | call ) | | | | [address], | | | | | | [address] [place], | | | | | | [place] [address] | | | | | | [phone] | | | +--------+ + + + [...] | | | | | [place] [address] | | | | | | [phone] | | | | | | | | +--------+ + + + + | 03/28/ | Appointment | | Osito Bowen | | | 2019 | | | MD Jonathan [address] | | | | | | [address] | | | | | | [place] [address] | | | | | | [phone] | | | | | | | | +--------+ + + + + as of this encounter Visit Diagnoses Not on filein this encounter"
--- OUTSIDE RECORDS SUMMARY | ~2019-02-16 | XMS | Encounter Summary ---
Demographics + + + | Address | [address] | | | [place] [address] | + + + | Home Phone | | + + + | Preferred Language | Unknown | + + + | Marital Status | Single | + + + | Mosque Affiliation | Unknown | + + + | Race | Unknown | + + + | Ethnic Group | Unknown | + + + Author + + + | Author | [employer]alo [employer] | + + + | Organization | [facility] | + + + | Address | Unknown | + + + | Phone | Unavailable | + + + Support + + +---------+ + | Name | Relationship | Address | Phone | + + +---------+ + | Lady Hastings | ECON | Unknown | | + + +---------+ + Care Team Providers + +------+ + | Care Material Liaison Name | Role | Phone | + +------+ + | Carlos DíazP | PCP | | + +------+ + Encounter Details +--------+ + + + + | Date | Type | Department | Care Team | Description | +--------+ + + + + | 01/26/ | Orders Only | [facility] | Osito Bowen | | | 2019 | | Gastroenterology | MD Jonathan [address] | | | | | [address], | [address] | | | | | [address] [place], | [place] [address] | | | | | [place] [address] | [phone] | | | | | [phone] | | | +--------+ + + + [...] [address] | | | | | | [place] [address] | | | | | | [phone] | | | | | | | | +--------+ + + + + | 03/28/ | Appointment | | Osito Bowen | | | 2018 | | | MD Lizbeth Castillo | | | | | | Dr [address] | | | | | | [place] [address] | | | | | | [phone] | | | | | | | | +--------+ + + + + as of this encounter Visit Diagnoses Not on filein this encounter"
--- OUTSIDE RECORDS SUMMARY | ~2019-02-16 | XMS | Encounter Summary ---
Demographics + + + | Address | [address] | | | [place] [address] | + + + | Home Phone [...] + + + | Author | Gons[address] | + + + | Organization | [facility] | + + + | Address | Unknown | + + + | Phone | Unavailable | + + + Support + + +---------+ + | Name | Relationship | Address | Phone | + + +---------+ + | Lady Hastings | ECON | Unknown | | + + +---------+ + Care Team Providers + +------+ + | Care Graphic Design Manager Name | Role | Phone | + +------+ + | Carlos DíazP | PCP | | + +------+ + Encounter Details +--------+ + + + + | Date | Type | Department | Care Team | Description | +--------+ + + + + | 01/18/ | Orders Only | [facility] | Josefina Olmos | Ulcerative colitis | | 2019 | | Gastroenterology | D, INSPECTOR BRAKE LINING | with rectal | | | | [address], | | bleeding, | | | | [address] [place], | | unspecified location | | | | [place] [address] | | ([facility]) (Primary Dx); | | | | [phone] | | BRBPR (bright red | | [...] [address] | | | | | | [place] [address] | | | | | | [phone] | | | | | | | | +--------+ + + + + | 03/28/ | Appointment | | Osito Bowen | | | 2019 | | | MD Lizbeth Castillo | | | | | | [address] | | | | | | [place] [address] | | | | | | [phone] | | | | | | | [...]
--- OUTSIDE RECORDS SUMMARY | ~2019-02-16 | XMS | Encounter Summary ---
Demographics + + + | Address | [address] | | | [place] [address] | + + + | Home Phone | | + + + | Preferred Language | Unknown | + + + | Marital Status | Single | + + + | Hoahaoism Affiliation | Unknown | + + + | Race | Unknown | + + + | Ethnic Group | Unknown | + + + Author + + + | Author | Gonsalo [employer] | + + + | Organization | [facility] [employer] [facility] | + + + | Address | Unknown | + + + | Phone | Unavailable | + + + Support + + +---------+ + | Name | Relationship | Address | Phone | + + +---------+ + | Lady Hastings | ECON | Unknown | | + + +---------+ + Care Team Providers + +------+ + | Care Knife Setter Name | Role | Phone | + +------+ + | Carlos Díaz | PCP | | + +------+ + Encounter Details +--------+ + + + + | Date | Type | Department | Care Team | Description | +--------+ + + + + | 01/23/ | Hospital | [facility] | | | | 2019 | Encounter | REGIONAL SURGERY | | | | | | CENTER PREADMISSION | | | | | | [facility] [address] | | | | | | [place] | | | | | | [address] | | | | | | [phone] | | | +--------+ + + + [...] Center | | | | | | [place] [address] | | | | | | [phone] | | | | | | | | +--------+ + + + + | 03/28/ | Appointment | | Osito Bowen | | | 2019 | | | MD Lizbeth Castlilo | | | | | | [address] | | | | | | [place] [address] | | | | | | [phone] | | | | | | | | +--------+ + + + + as of this encounter Visit Diagnoses Not on filein this encounter"
--- OUTSIDE RECORDS SUMMARY | ~2019-02-16 | XMS | Encounter Summary ---
Demographics + + + | Address | [address] | | | [place] [address] | + + + | Home Phone | | + + + | Preferred Language | Unknown | + + + | Marital Status | Single | + + + | Lutheran Affiliation | Unknown | + + + | Race | Unknown | + + + | Ethnic Group | Unknown | + + + Author + + + | Author | Gonsalo PERORA | + + + | Organization | [facility] | + + + | Address | Unknown | + + + | Phone | Unavailable | + + + Support + + +---------+ + | Name | Relationship | Address | Phone | + + +---------+ + | Lady Hastings | ECON | Unknown | | + + +---------+ + Care Team Providers + +------+ + | Care District Branch Manager Name | Role | Phone | [...] + + | 02/14/ | Telephone | [facility] | Josefina Olmos | Other (TB | | 2019 | | Gastroenterology | D, TRAIN EXAMINER | Test/Infusion | | | | [address], | | Problem ) | | | | [address] [place], | | | | | | [place] [address] | | | | | | [phone] | | | +--------+ + + + [...] | | | | | [place] [address] | | | | | | [phone] | | | | | | | | +--------+ + + + + | 03/28/ | Appointment | | Osito Bowen | | | 2019 | | | MD Jonathan [address] | | | | | | [address] | | | | | | [place] [address] | | | | | | [phone] | | | | | | | [...]
--- OUTSIDE RECORDS SUMMARY | ~2019-02-16 | XMS | Encounter Summary ---
Demographics + + + | Address | [address] | | | [place] [address] | + + + | Home Phone | | + + + | Preferred Language | Unknown | + + + | Marital Status | Single | + + + | Congregation Affiliation | Unknown | + + + | Race | Unknown | + + + | Ethnic Group | Unknown | + + + Author + + + | Author | [facility] [employer] | + + + | Organization | [facility] [employer] [facility] | + + + | Address | Unknown | + + + | Phone | Unavailable | + + + Support + + +---------+ + | Name | Relationship | Address | Phone | + + +---------+ + | Lady Hastings | ECON | Unknown | | + + +---------+ + Care Team Providers + +------+ + | Care Analytical Consultant Name | Role | Phone | [...] + + | 02/14/ | Documentati | [facility] | Josefina Olmos | Other ([facility] | | 2019 | on Only | Gastroenterology | D, ELECTROPHYSIOLOGIST | incomplete lab | | | | [address], | | 02/14/19) | | | | [address] [place], | | | | | | [place] [address] | | | | | | [phone] | | | +--------+ + + + [...] | | | | | [place] [address] | | | | | | [phone] | | | | | | | | +--------+ + + + + | 03/28/ | Appointment | | Osito Bowen | | | 2019 | | | MD Lizbeth Castillo | | | | | | Dr Butcher | | | | | | [place] [address] | | | | | | [phone] | | | | | | | | +--------+ + + + + as of this encounter Visit Diagnoses Not on filein this encounter"
--- OUTSIDE RECORDS SUMMARY | ~2019-02-16 | XMS | Encounter Summary ---
Demographics + + + | Address | [address] | | | [place] [address] | + + + | Home Phone [...] + + + | Author | [facility] [employer] | + + + | Organization | [facility] [employer] [facility] | + + + | Address | Unknown | + + + | Phone | Unavailable | + + + Support + + +---------+ + | Name | Relationship | Address | Phone | + + +---------+ + | Lady Hastings | ECON | Unknown | | + + +---------+ + Care Team Providers + +------+ + | Care Emissions Repair Technician Name | Role | Phone | [...] + + | 01/06/ | Telephone | [facility] | Josefina Olmos | Other | | 2019 | | Gastroenterology | D, REGISTRATION SCHEDULING SPECIALIST | | | | | [address], | | | | | | [facility] [address] [place], | | | | | | [place] [address] | | | | | | [phone] | | | +--------+ + + + [...] | | | | | | [place] [address] | | | | | | [phone] | | | | | | | | +--------+ + + + + | 03/28/ | Appointment | | Osito Bowen | | | 2019 | | | MD Jonathan [address] | | | | | | [address] | | | | | | [place] [address] | | | | | | [phone] | | | | | | | | +--------+ + + + + as of this encounter Visit Diagnoses Not on filein this encounter"
--- OUTSIDE RECORDS SUMMARY | ~2019-02-16 | XMS | Encounter Summary ---
Demographics + + + | Address | [address] | | | [place] [address] | + + + | Home Phone | | + + + | Preferred Language | Unknown | + + + | Marital Status | Single | + + + | Jewish Affiliation | Unknown | + + + | Race | Unknown | + + + | Ethnic Group | Unknown | + + + Author + + + | Author | [facility] | + + + | Organization | [facility] [email or web address] [facility] | + + + | Address | Unknown | + + + | Phone | Unavailable | + + + Support + + +---------+ + | Name | Relationship | Address | Phone | + + +---------+ + | Lady Hastings | ECON | Unknown | | + + +---------+ + Care Team Providers + +------+ + | Care Metal Numerical Tool Programmer Name | Role | Phone | [...] + + | 02/14/ | Telephone | [facility] | Josefina Olmos | Other (TB | | 2019 | | Gastroenterology | D, E COMMERCE STRATEGIST | Test/Infusion | | | | [address], | | Problem ) | | | | [address] [place], | | | | | | [place] [address] | | | | | | [phone] | | | +--------+ + + + [...] | | | | | [place] [address] | | | | | | [phone] | | | | | | | | +--------+ + + + + | 03/28/ | Appointment | | Osito Bowen | | | 2019 | | | MD Jonathan [address] | | | | | | [address] | | | | | | [place] [address] | | | | | | [phone] | | | | | | | [...]
--- OUTSIDE RECORDS SUMMARY | ~2019-02-16 | XMS | Encounter Summary ---
Demographics + + + | Address | [address] | | | [place] [address] | + + + | Home Phone | | + + + | Preferred Language | Unknown | + + + | Marital Status | Single | + + + | Baptism Affiliation | Unknown | + + + | Race | Unknown | + + + | Ethnic Group | Unknown | + + + Author + + + | Author | [facility] | + + + | Organization | [facility] [employer] [facility] | + + + | Address | Unknown | + + + | Phone | Unavailable | + + + Support + + +---------+ + | Name | Relationship | Address | Phone | + + +---------+ + | Lady Hastings | ECON | Unknown | | + + +---------+ + Care Team Providers + +------+ + | Care Cut Out And Marking Machine Operator Name | Role | Phone [...] + + | 01/26/ | Surgery | [facility] | Osito Bowen | COLONOSCOPY | | 2019 | | REGIONAL SURGERY | MD Jonathan [address] | | | | | CENTER INTRA OP | [address] | | | | | [address] | [place] [address] | | | | | [place], [place] | [phone] | | | | | [address] | | | | | | [phone] | | | +--------+---------+ + + + [...] be different f rom the original. [facility] Service: Gastroenterology Brief Post-op Discharge Note [...] Your Medications These medications were sent to [facility] [address] [place] [address] 0 [facility] [address] [facility] [place] [place] [address] metroNIDAZOLE 500 MG tablet Osito Bowen MD [...] [address] | | | | | | [place] [address] | | | | | | [phone] | | | | | | | | +--------+ + + + + | 03/28/ | Appointment | | Osito Bowen | | | 2018 | | | MD Lizbeth Castillo | | | | | | [address] | | | | | | [place] [address] | | | | | | [phone] | | | | | | | [...] LABORATORY: The technical component was performed by [facility] | | | [facility], [address] [place] [address] (Rail Car Loader: | | | Loraine Chiu MD; CLIA# [id number]). The professional interpretation was | | | performed by [employer], [facility], [address] | | | [place] [place] [address]. Diagnostician: Elio Sosa MD | | | [...] | + + + + + | [facility] | [address] [facility] | [place] [address] | [phone] | | LABORATORY | Blvd[address] | | [...] mg | | | | PRN, Starting [facility] 01/26/19 at | | 9 11:24 | [...]
--- OUTSIDE RECORDS SUMMARY | ~2019-02-16 | XMS | Encounter Summary ---
Demographics + + + | Address | [address] | | | [place] [address] | + + + | Home Phone | | + + + | Preferred Language | Unknown | + + + | Marital Status | Single | + + + | Voodoo Affiliation | Unknown | + + + | Race | Unknown | + + + | Ethnic Group | Unknown | + + + Author + + + | Author | [facility] [employer] | + + + | Organization | [facility] [facility] | + + + | Address | Unknown | + + + | Phone | Unavailable | + + + Support + + +---------+ + | Name | Relationship | Address | Phone | + + +---------+ + | Lady Hastings | ECON | Unknown | | + + +---------+ + Care Team Providers + +------+ + | Care Steel Checker Name | Role | Phone | [...] | | | | bleeding | [place] [address] | [address] Phone: | | | | | [facility]) | Phone: | [phone] | | | | | | [phone] | Fax: | | | | | | Fax: | [phone] | | | | | | [phone] | | + + + + + + + Encounter Details +--------+---------+ + + + | Date | Type | Department | Care Team | Description | +--------+---------+ + + + | 01/03/ | Office | [facility] | Osito Bowen | Ulcerative colitis | | 2019 | Visit | Gastroenterology | MD Jonathan [address] | with rectal | | | | [address], | [address] | bleeding, | | | | [address] [place], | [place] [address] | unspecified location | | | | [place] [address] | [phone] | (HCC) (Primary Dx); | | | | [phone] | | BRBPR (bright red | | [...] for a few hours. Date Last Reviewed: 08/11/201619993297-8258 [employer]. [address] [place] [address]. All righ ts reserved. This information is [...] call with any questions. Osito Bowen MD [facility] Gastroenterology 01/03/2019 This progress note was dictated using [employer] voice recognition software. Document was revie wed at time of dictation but [id number]-[id number] errors may be present. Please call with [...] | | | | | Dr [address]b [facility] | | | | | | [place] [address] | | | | | | [phone] | | | | | | | | +--------+ + + + + | 03/28/ | Appointment | | Osito Bowen | | | 2019 | | | MD Jonathan [address] | | | | | | [address] | | | | | | [place] [address] | | | | | | [phone] | | | | | | | [...]
--- OUTSIDE RECORDS SUMMARY | ~2019-02-16 | XMS | Encounter Summary ---
Demographics + + + | Address | [address] | | | [place] [address] | + + + | Home Phone [...] + + + | Author | [facility] [employer] | + + + | Organization | [facility] | + + + | Address | Unknown | + + + | Phone | Unavailable | + + + Support + + +---------+ + | Name | Relationship | Address | Phone | + + +---------+ + | Lady Hastings | ECON | Unknown | | + + +---------+ + Care Team Providers + +------+ + | Care Picking Table Worker Name | Role | Phone | + +------+ + | Carlos Díaz | PCP | | + +------+ + Encounter Details +--------+ + + + + | Date | Type | Department | Care Team | Description | +--------+ + + + + | 02/14/ | Orders Only | [facility] | Josefina Olmos | | | 2019 | | Gastroenterology | D, CHRISTINE | | | | | [address], | | | | | | [facility] [address] [place], | | | | | | [place] [address] | | | | | | [phone] | | | +--------+ + + + [...] | | | | | [place] [address] | | | | | | [phone] | | | | | | | | +--------+ + + + + | 03/28/ | Appointment | | Osito Bowen | | | 2019 | | | MD Lizbeth Castillo | | | | | | Dr [address] | | | | | | [place] [address] | | | | | | [phone] | | | | | | | | +--------+ + + + + as of this encounter Visit Diagnoses Not on filein this encounter"
--- OUTSIDE RECORDS SUMMARY | ~2019-02-16 | XMS | Encounter Summary ---
Demographics + + + | Address | [address] | | | [place] [address] | + + + | Home Phone [...] + + + | Author | [facility] | + + + | Organization | [facility] [employer] [facility] | + + + | Address | Unknown | + + + | Phone | Unavailable | + + + Support + + +---------+ + | Name | Relationship | Address | Phone | + + +---------+ + | Lady Hastings | ECON | Unknown | | + + +---------+ + Care Team Providers + +------+ + | Care Vocal Artist Name | Role | Phone | + [...] + + | 01/10/ | Telephone | [facility] | Josefina Olmos | Other (medication | | 2019 | | Gastroenterology | D, ACTIVITIES SPECIALIST | denial ) | | | | [address], | | | | | | [address] [place], | | | | | | [place] [address] | | | | | | [phone] | | | +--------+ + + + [...] | | | | | [place] [address] | | | | | | [phone] | | | | | | | | +--------+ + + + + | 03/28/ | Appointment | | Osito Bowen | | | 2019 | | | MD Lizbeth Castillo | | | | | | Dr [address] | | | | | | [place] [address] | | | | | | [phone] | | | | | | | | +--------+ + + + + as of this encounter Visit Diagnoses Not on filein this encounter"
--- OUTSIDE RECORDS SUMMARY | ~2019-02-16 | XMS | Clinical Summary ---
Demographics + + + | Address | [address] | | | [place] [address] | + + + | Home Phone | | + + + | Preferred Language | Unknown | + + + | Marital Status | Unknown | + + + | Evangelical Affiliation | Unknown | + + + | Race | Unknown | + + + | Ethnic Group | Unknown | + + + Author + + + | Author | [facility] | + + + | Organization | [facility] | + + + | Address | Unknown | + + + | Phone | Unavailable | + + + Care Team Providers + +------+ + | Care Operations Accountant Name | Role | Phone | + +------+ + PP | Unavailable | + +------+ + Source Comments ION is fully live on both [facility] Ambulatory and [facility] InPatient.[facility] Allergies Not on File Current Medications Not [...]
--- OUTSIDE RECORDS SUMMARY | ~2019-02-16 | XMS | Clinical Summary ---
Demographics + + + | Address | [address] | | | [place] [address] | + + + | Home Phone | | + + + | Preferred Language | Unknown | + + + | Marital Status | Single | + + + | Hoahaoism Affiliation | 1013 | + + + | Race | Unknown | + + + | Ethnic Group | Unknown | + + + Author + + + | Author | [facility] | | | and [place] | + + + | Organization | [facility] | | | and [place] | + + + | Address | Unknown | + + + | Phone | Unavailable | + + + Support + + + + + | Name | Relationship | Address | Phone | + + + + + | Marilyn Diallo | ECON | [place] | | | | | [address] | | + + + + + | Lady Hastings | ECON | Unknown | Unavailable | + + + + + Care Team Providers + +------+ + | Care Clerical Office Worker Name | Role | Phone | [...] | [employer] | [employer] | [id number] | 11/13/19 | [phone] | | Medica | | MEDICAID HMO [...] Person | Self | [birth year] | [address] | | | al/[place]io | | 1980 | [phone] | [place] | | | [place] | | | 4 (Home) | [address] | | | | | | [phone] | | | | | | | 1 (Work) | | + +--------+ +--------+ + + Advance Directives Patient has advance care planning documents on file. For more information, please contact:[facility] and [facility] [place] [address]
--- OUTSIDE RECORDS SUMMARY | ~2019-02-16 | XMS | Encounter Summary ---
Demographics + + + | Address | [address] | | | [place] [address] | + + + | Home Phone | | + + + | Preferred Language | Unknown | + + + | Marital Status | Single | + + + | Zoroastrianism Affiliation | Unknown | + + + | Race | Unknown | + + + | Ethnic Group | Unknown | + + + Author + + + | Author | [facility] | + + + | Organization | [facility] [employer] [facility] | + + + | Address | Unknown | + + + | Phone | Unavailable | + + + Support + + +---------+ + | Name | Relationship | Address | Phone | + + +---------+ + | Lady Hastings | ECON | Unknown | | + + +---------+ + Care Team Providers + +------+ + | Care Abrasives Sales Representative Name | Role | Phone [...] + + | 01/30/ | Telephone | [facility] | Josefina Olmos | Other (SHABANA FOR | | 2018 | | Gastroenterology | D, KNIFER UP | ENTYVIO ) | | | | [address], | | | | | | [facility] [address] [place], | | | | | | [place] [address] | | | | | | [phone] | | | +--------+ + + + [...] | | | | | [place] [address] | | | | | | [phone] | | | | | | | | +--------+ + + + + | 03/28/ | Appointment | | Osito Bowen | | | 2018 | | | MD Lizbeth Castillo | | | | | | [address] | | | | | | [place] [address] | | | | | | [phone] | | | | | | | | +--------+ + + + + as of this encounter Visit Diagnoses Not on filein this encounter"
--- OUTSIDE RECORDS SUMMARY | ~2019-02-16 | XMS | Clinical Summary ---
Demographics + + + | Address | [address] | | | [place] [address] | + + + | Home Phone | | + + + | Preferred Language | Unknown | + + + | Marital Status | Single | + + + | Amish Affiliation | Unknown | + + + | Race | Unknown | + + + | Ethnic Group | Unknown | + + + Author + + + | Author | [facility] | + + + | Organization | [facility] [employer] [facility] | + + + | Address | Unknown | + + + | Phone | Unavailable | + + + Support + + +---------+ + | Name | Relationship | Address | Phone | + + +---------+ + | Lady Hastings | ECON | Unknown | | + + +---------+ + Care Team Providers + +------+ + | Care Residence Leasing Agent Name | Role | Phone | [...] | | | ([facility] BRBPR | | | | | | [...] | | | ([facility] | | | | | | [...] Overview: Added automatically from request for surgery [id number] | + + + + + | [...] 2018 | on Only | | D, BOTTOM MAN | incomplete lab | | | | | | 02/14/19) | +--------+ + + + + | 02/14/ | Orders Only | | Josefina Olmos | | | 2018 | | | D, BOTTOM MAN | | +--------+ + + + + | 02/14/ | Telephone | | Josefina Olmos | Other (TB | | 2018 | | | D, BOTTOM MAN | Test/Infusion | | | | | | Problem ) | +--------+ + + + + | 02/07/ | Telephone | | Josefina Olmos | Other (TB TEST ) | 2018 | | | D, BOTTOM MAN | | +--------+ + + + + | 01/30/ | Telephone | | Josefina Olmos | Other (PA FOR | 2018 | | | D, BOTTOM MAN | ENTYVIO ) | +--------+ + + + + | 01/26/ | Hospital | | Osito Bowen | Ulcerative colitis | | 2018 | Encounter | | MD Jonathan | with rectal bleeding | | | | | | ([facility]); Ulcerative | | | | | | colitis with rectal | | | | | | bleeding, | | | | | | unspecified location | | | | | | ([facility]); BRBPR | | | | | | (bright red blood | | | | | | per rectum) | +--------+ + + + + +---+ + | | Discharge | | | Summaries | | | - | | | Andrés, | | | Osito Castillo | | | - | | | [...] | were sent | | | to [facility] | | | Pharmacy | | | [address] | | [address] [place] | | [place] [address] | | | [address], | | | [place] | | | [place] [address] | | | Phone: | | | [phone] | | | 1 | | | [...] | | 2018 | | | D, BOTTOM MAN | call ) | +--------+ +---+ + + | 01/18/ | Orders Only | | Josefina Olmos | Ulcerative colitis | | 2018 | | | D, BOTTOM MAN | with rectal | | | | [...] (medication | 2018 | | | D, BOTTOM MAN | denial ) | +--------+ +---+ + + | 01/06/ | Telephone | | Josefina Olmos | Other | | 2019 | | | D, BOTTOM MAN | | +--------+ +---+ + + | 01/04/ | Documentati | | Josefina Olmos | Other (SHABANA FONTENOT ON | | 2018 | on Only | | D, BOTTOM MAN | MESALAMINE ) | +--------+ +---+ + + | 01/04/ | Documentati | | Josefina Olmos | Other (Hoahaoism | | 2018 | on Only | | D, BOTTOM MAN | Health Initiatives | | | | | | records from | | | | | | 01/01/19); Other | | | | | | ([facility] | | | | | | Lab [...] | | | | | | [place] [address] | | | | | | [phone] | | | | | | | | +--------+ + + + + | 03/28/ | Appointment | | Osito Bowen | | | 2018 | | | MD Lizbeth Castillo | | | | | | Dr [address] | | | | | | [place] [address] | | | | | | [phone] | | | | | | | [...] | | ([facility] BRBPR | | | | | | [...] ([facility]) | | + +--------+ + + [...] no evidence of | | | dysplasia. TWK:[facility]:C2NR GROSS DESCRIPTION: A. The specimen is [...] LABORATORY: The technical component was performed by [employer] | | | [employer], [address] [place] [address] (Metal Flow Coordinator: | | | Loraine Chiu MD; CLIA# [id number]). The professional interpretation was | | | performed by [employer], [facility], [facility] | | | [address] [place] [address]. Diagnostician: Elio Sosa MD | | | Pathologist Electronically Signed 2019 | | + + + + +---------+ + + | Performing | Address | City/State/Zipcode | Phone Number | | Organization | | | | + +---------+ + + | [facility] | | | | + +---------+ [...] + + + | [facility] | [address] | [place] [address] | [phone] | | LABORATORY | [address]vd. | | [...] +------+-------+ + | MEDICAID | [place] | [id number] | | | [address] | | | [address] | | | | [place] | | | [place] | | | | [address] | | | COAL DRIER OPERATOR | | | | | + +--------+ [...] | Self | [birth year] | Home: | [address] | | | [place]y/[place]io | | 1980 | [phone] | [place] | | | [place] | | | [address] | [address] | + +--------+ +--------+ + +
--- OUTSIDE RECORDS SUMMARY | ~2019-02-16 | XMS | Encounter Summary ---
Demographics + + + | Address | [address] | | | [place] [address] | + + + | Home Phone [...] + + + | Author | [facility] [employer] | + + + | Organization | [facility] | + + + | Address | Unknown | + + + | Phone | Unavailable | + + + Support + + +---------+ + | Name | Relationship | Address | Phone | + + +---------+ + | Lady Hastings | ECON | Unknown | | + + +---------+ + Care Team Providers + +------+ + | Care Air Cargo Agent Name | Role | Phone | [...] + + | 02/14/ | Documentati | [facility] | Josefina Olmos | Other ([facility] | | 2019 | on Only | Gastroenterology | D, WEB SOFTWARE ENGINEER | incomplete lab | | | | [address], | | 02/14/19) | | | | [address] [place], | | | | | | [place] [address] | | | | | | [phone] | | | +--------+ + + + [...] | | | | | [place] [address] | | | | | | [phone] | | | | | | | | +--------+ + + + + | 03/28/ | Appointment | | Osito Bowen | | | 2019 | | | MD Lizbeth Castillo | | | | | | Dr [address] | | | | | | [place] [address] | | | | | | [phone] | | | | | | | | +--------+ + + + + as of this encounter Visit Diagnoses Not on filein this encounter"
--- OUTSIDE RECORDS SUMMARY | ~2019-02-16 | XMS | Encounter Summary ---
Demographics + + + | Address | [address] | | | [place] [address] | + + + | Home Phone [...] + + + | Author | [facility] [employer] | + + + | Organization | [facility] | + + + | Address | Unknown | + + + | Phone | Unavailable | + + + Support + + +---------+ + | Name | Relationship | Address | Phone | + + +---------+ + | Lady Hastings | ECON | Unknown | | + + +---------+ + Care Team Providers + +------+ + | Care Children'S Entertainer Name | Role | Phone | + +------+ + | Carlos Díaz | PCP | | + +------+ + Encounter Details +--------+ + + + + | Date | Type | Department | Care Team | Description | +--------+ + + + + | 02/14/ | Orders Only | [facility] | Josefina Olmos | | | 2019 | | Gastroenterology | D, CHRISTINE | | | | | [address], | | | | | | [facility] [address] [place], | | | | | | [place] [address] | | | | | | [phone] | | | +--------+ + + + [...] | | | | | [place] [address] | | | | | | [phone] | | | | | | | | +--------+ + + + + | 03/28/ | Appointment | | Osito Bowen | | | 2019 | | | MD Lizbeth Castillo | | | | | | Dr [address] | | | | | | [place] [address] | | | | | | [phone] | | | | | | | | +--------+ + + + + as of this encounter Visit Diagnoses Not on filein this encounter"
--- OUTSIDE RECORDS SUMMARY | ~2019-02-16 | XMS | Encounter Summary ---
Demographics + + + | Address | [address] | | | [place] [address] | + + + | Home Phone | | + + + | Preferred Language | Unknown | + + + | Marital Status | Single | + + + | Catholic Affiliation | Unknown | + + + | Race | Unknown | + + + | Ethnic Group | Unknown | + + + Author + + + | Author | [facility] [employer] | + + + | Organization | [facility] [employer] [facility] | + + + | Address | Unknown | + + + | Phone | Unavailable | + + + Support + + +---------+ + | Name | Relationship | Address | Phone | + + +---------+ + | Lady Hastings | ECON | Unknown | | + + +---------+ + Care Team Providers + +------+ + | Care Department Head [employer] Name | Role | Phone | + [...] + + | 01/10/ | Telephone | [facility] | Josefina Olmos | Other (medication | | 2019 | | Gastroenterology | D, INDUSTRIAL MAINTENANCE REPAIRER | denial ) | | | | [address], | | | | | | [address] [place], | | | | | | [place] [address] | | | | | | [phone] | | | +--------+ + + + [...] | | | | | [place] [address] | | | | | | [phone] | | | | | | | | +--------+ + + + + | 03/28/ | Appointment | | Osito Bowen | | | 2019 | | | MD Lizbeth Castillo | | | | | | [address] | | | | | | [place] [address] | | | | | | [phone] | | | | | | | | +--------+ + + + + as of this encounter Visit Diagnoses Not on filein this encounter"
--- OUTSIDE RECORDS SUMMARY | ~2019-02-16 | XMS | Clinical Summary ---
Demographics + + + | Address | [address] | | | [place] [address] | + + + | Home Phone [...] + + + | Author | Gonsalo Intean Poalroath Rongroeurng | + + + | Organization | [facility] [employer] | + + + | Address | Unknown | + + + | Phone | Unavailable | + + + Support + + +---------+ + | Name | Relationship | Address | Phone | + + +---------+ + | Lady Hastings | ECON | Unknown | | + + +---------+ + Care Team Providers + +------+ + | Care Floor Layer Name | Role | Phone | + [...] | | | | | | | ([facility] | | | | | [...] | | | | | | | ([facility] | | | | | [...] Overview: Added automatically from request for surgery [id number] | + + + + + | [...] 2018 | on Only | | D, AIR FORCE SENIOR OFFICER | incomplete lab | | | | | | 02/14/19) | +--------+ + + + + | 02/14/ | Orders Only | | Josefina Olmos | | | 2018 | | | D, AIR FORCE SENIOR OFFICER | | +--------+ + + + + | 02/14/ | Telephone | | Josefina Olmos | Other (TB | | 2018 | | | D, AIR FORCE SENIOR OFFICER | Test/Infusion | | | | | | Problem ) | +--------+ + + + + | 02/07/ | Telephone | | Josefina Olmos | Other (TB TEST ) | 2018 | | | D, AIR FORCE SENIOR OFFICER | | +--------+ + + + + | 01/30/ | Telephone | | Josefina Olmos | Other (PA FOR | 2018 | | | D, AIR FORCE SENIOR OFFICER | ENTYVIO ) | +--------+ + + + + | 01/26/ | Hospital | | Osito Bowen | Ulcerative colitis | | 2018 | Encounter | | MD Jonathan | with rectal bleeding | | | | | | ([facility]); Ulcerative | | | | | | colitis with rectal | | | | | | bleeding, | | | | | | unspecified location | | | | | | ([facility]); BRBPR | | | | | [...] | were sent | | | to [facility] | | | Pharmacy | | | [address] | [address] [place] | | [place] [address] | | | [address], | | | [place] | | | [place] [address] | | | Phone: | | | [phone] | | | 1 | | | [...] | | 2018 | | | D, AIR FORCE SENIOR OFFICER | call ) | +--------+ +---+ + + | 01/18/ | Orders Only | | Josefina Olmos | Ulcerative colitis | | 2018 | | | D, AIR FORCE SENIOR OFFICER | with rectal | | | | [...] (medication | 2018 | | | D, AIR FORCE SENIOR OFFICER | denial ) | +--------+ +---+ + + | 01/06/ | Telephone | | Josefina Olmos | Other | | 2019 | | | D, AIR FORCE SENIOR OFFICER | | +--------+ +---+ + + | 01/04/ | Documentati | | Josefina Olmos | Other (SHABANA FONTENOT ON | | 2018 | on Only | | D, AIR FORCE SENIOR OFFICER | MESALAMINE ) | +--------+ +---+ + + | 01/04/ | Documentati | | Josefina Olmos | Other ([facility] | | 2018 | on Only | | D, AIR FORCE SENIOR OFFICER | Health Initiatives | | | | | | records from | | | | | | 01/01/19); Other | | | | | | ([facility] | | | | | [...] | | | | | | [place] [address] | | | | | | [phone] | | | | | | | | +--------+ + + + + | 03/28/ | Appointment | | Osito Bowen | | | 2018 | | | MD Lizbeth Castillo | | | | | | Dr [address] | | | | | | [place] [address] | | | | | | [phone] | | | | | | | [...] location | | | | | | ([facility]) [facility] | | | | | [...] location | | | | | | ([facility] [...] no evidence of | | | dysplasia. TWK:[facility]:C2NR GROSS DESCRIPTION: A. The specimen is [...] LABORATORY: The technical component was performed by [employer] | | | [employer], [address] [place] [address] (Wireless Team Member: | | | Loraine Chiu MD; CLIA# [id number]). The professional interpretation was | | | performed by [employer], [facility], [facility] | | | [place] [address] [address]. Diagnostician: Elio Sosa MD | | | Pathologist Electronically Signed 2019 | | + + + + +---------+ + + | Performing | Address | City/State/Zipcode | Phone Number | | Organization | | | | + +---------+ + + | [facility] | | | | + [...] + + + | [facility] | [address] | [place] [address] | [phone] | | LABORATORY | [address] | | [...] +------+-------+ + | MEDICAID | EASTER | [id number] | | | [address] | | | N | | | | [place] | | | [place] | | | | [address] | | | CATEGORY DEVELOPMENT MANAGER | | | | | + +--------+ [...] | Self [birth year] Home: | [address] | | | marty/Antonio | | 1980 | [phone] | [place] | | | lucia | | | [phone] | [address] | + +--------+ +--------+ + +
--- OUTSIDE RECORDS SUMMARY | ~2019-02-16 | XMS | Encounter Summary ---
Demographics + + + | Address | [address] | | | [place] [address] | + + + | Home Phone [...] + + + | Author | Gonsalo Webyog | + + + | Organization | [facility] [employer] [facility] | + + + | Address | Unknown | + + + | Phone | Unavailable | + + + Support + + +---------+ + | Name | Relationship | Address | Phone | + + +---------+ + | Lady Hastings | ECON | Unknown | | + + +---------+ + Care Team Providers + +------+ + | Care Carriage Rider Name | Role | Phone | + [...] + + | 12/08/ | Documentati | [facility] | Nayalaminnatasha Osito | Other (REFERRAL FROM | | 2019 | on Only | Gastroenterology | MD Jonathan [address] | MEENAKSHI CHRISTIANSON) | | | | [address], | [address] | | | | | [address] [place], | [place] [address] | | | | | [place] [address] | [phone] | | | | | [phone] | | | +--------+ + + + [...] | | | | | | [place] [address] | | | | | | [phone] | | | | | | | | +--------+ + + + + | 03/28/ | Appointment | | Osito Bowen | | | 2019 | | | MD Lizbeth Castillo | | | | | | Dr [address] | | | | | | [place] [address] | | | | | | [phone] | | | | | | | | +--------+ + + + + as of this encounter Visit Diagnoses Not on filein this encounter"
--- OUTSIDE RECORDS SUMMARY | ~2019-02-16 | XMS | Encounter Summary ---
Demographics + + + | Address | [address] | | | [place] [address] | + + + | Home Phone [...] + + + | Author | Gonsalo Digital Karma | + + + | Organization | [facility] [employer] [facility] | + + + | Address | Unknown | + + + | Phone | Unavailable | + + + Support + + +---------+ + | Name | Relationship | Address | Phone | + + +---------+ + | Lady Hastings | ECON | Unknown | | + + +---------+ + Care Team Providers + +------+ + | Care Sugarcane Planter Name | Role | Phone | + +------+ + | Carlos Díaz | PCP | | + +------+ + Encounter Details +--------+ + + + + | Date | Type | Department | Care Team | Description | +--------+ + + + + | 01/23/ | Hospital | [facility] | | | | 2019 | Encounter | REGIONAL SURGERY | | | | | | CENTER PREADMISSION | | | | | | [facility] [address] | | | | | | [place] | | | | | | [address] | | | | | | [phone] | | | +--------+ + + + [...] | | | | | Dr Ayou[address] [facility] | | | | | | [place] [address] | | | | | | [phone] | | | | | | | | +--------+ + + + + | 03/28/ | Appointment | | Osito Bowen | | | 2019 | | | MD Lizbeth Castillo | | | | | | [address] | | | | | | [place] [address] | | | | | | [phone] | | | | | | | | +--------+ + + + + as of this encounter Visit Diagnoses Not on filein this encounter"
--- OUTSIDE RECORDS SUMMARY | ~2019-02-16 | XMS | Encounter Summary ---
Demographics + + + | Address | [address] | | | [place] [address] | + + + | Home Phone | | + + + | Preferred Language | Unknown | + + + | Marital Status | Single | + + + | Synagogue Affiliation | Unknown | + + + | Race | Unknown | + + + | Ethnic Group | Unknown | + + + Author + + + | Author | Jordan [employer] | + + + | Organization | [facility] | + + + | Address | Unknown | + + + | Phone | Unavailable | + + + Support + + +---------+ + | Name | Relationship | Address | Phone | + + +---------+ + | Lady Hastings | ECON | Unknown | | + + +---------+ + Care Team Providers + +------+ + | Care Rivet Hammer Machine Operator Name | Role | Phone | + +------+ + | Carlos Díaz | PCP | | + +------+ + Encounter Details +--------+ + + + + | Date | Type | Department | Care Team | Description | +--------+ + + + + | 01/26/ | Procedure | [facility] | | | | 2019 | Pass | REGIONAL SURGERY | | | | | | CENTER INTRA OP | | | | | | [address] | | | | | | [place] | | | | | | [address] | | | | | | [phone] | | | +--------+ + + + [...] | | | | | | [place] [address] | | | | | | [phone] | | | | | | | | +--------+ + + + + | 03/28/ | Appointment | | Osito Bowen | | | 2018 | | | MD Lizbeth Castillo | | | | | | Dr [address] | | | | | | [place] [address] | | | | | | [phone] | | | | | | | | +--------+ + + + + as of this encounter Visit Diagnoses Not on filein this encounter"
--- OUTSIDE RECORDS SUMMARY | ~2019-02-16 | XMS | Encounter Summary ---
Demographics + + + | Address | [address] | | | [place] [address] | + + + | Home Phone [...] + + + | Author | Jordan Antengo | + + + | Organization | [facility] [employer] [facility] | + + + | Address | Unknown | + + + | Phone | Unavailable | + + + Support + + +---------+ + | Name | Relationship | Address | Phone | + + +---------+ + | Lady Hastings | ECON | Unknown | | + + +---------+ + Care Team Providers + +------+ + | Care Social Insurance Administrator Name | Role | Phone | + +------+ + | Carlos Díaz | PCP | | + +------+ + Encounter Details +--------+ + + + + | Date | Type | Department | Care Team | Description | +--------+ + + + + | 01/26/ | Procedure | [facility] | | | | 2019 | Pass | REGIONAL SURGERY | | | | | | CENTER INTRA OP | | | | | | [address] | | | | | | [place] | | | | | | [address] | | | | | | [phone] | | | +--------+ + + + [...] | | | | | | [place] [address] | | | | | | [phone] | | | | | | | | +--------+ + + + + | 03/28/ | Appointment | | Osito Bowen | | | 2018 | | | MD Lizbeth Castillo | | | | | | Dr [address] | | | | | | [place] [address] | | | | | | [phone] | | | | | | | | +--------+ + + + + as of this encounter Visit Diagnoses Not on filein this encounter"
--- OUTSIDE RECORDS SUMMARY | ~2019-02-16 | XMS | Encounter Summary ---
Demographics + + + | Address | [address] | | | [place] [address] | + + + | Home Phone | | + + + | Preferred Language | Unknown | + + + | Marital Status | Single | + + + | Orthodox Affiliation | Unknown | + + + | Race | Unknown | + + + | Ethnic Group | Unknown | + + + Author + + + | Author | Gonsalo Gecko Audio | + + + | Organization | [facility] [employer] [facility] | + + + | Address | Unknown | + + + | Phone | Unavailable | + + + Support + + +---------+ + | Name | Relationship | Address | Phone | + + +---------+ + | Lady Hastings | ECON | Unknown | | + + +---------+ + Care Team Providers + +------+ + | Care Information Security Engineer Name | Role | Phone | [...] + + | 01/23/ | Telephone | [facility] | Josefina Olmos | Other (pre-procedure | | 2018 | | Gastroenterology | D, HEADER BOSS | call ) | | | | [address], | | | | | | [address] [place], | | | | | | [place] [address] | | | | | | [phone] | | | +--------+ + + + [...] | | | | | [place] [address] | | | | | | [phone] | | | | | | | | +--------+ + + + + | 03/28/ | Appointment | | Osito Bowen | | | 2019 | | | MD Jonathan [address] | | | | | | [address] | | | | | | [place] [address] | | | | | | [phone] | | | | | | | | +--------+ + + + + as of this encounter Visit Diagnoses Not on filein this encounter"
--- OUTSIDE RECORDS SUMMARY | ~2019-02-16 | XMS | Encounter Summary ---
Demographics + + + | Address | [address] | | | [place] [address] | + + + | Home Phone [...] + + + | Author | Gonsalo [employer] | + + + | Organization | [facility] [facility] | + + + | Address | Unknown | + + + | Phone | Unavailable | + + + Support + + +---------+ + | Name | Relationship | Address | Phone | + + +---------+ + | Lady Hastings | ECON | Unknown | | + + +---------+ + Care Team Providers + +------+ + | Care Test Puller Name | Role | Phone | + +------+ + | Carlos DíazP | PCP | | + +------+ + Encounter Details +--------+ + + + + | Date | Type | Department | Care Team | Description | +--------+ + + + + | 01/26/ | Orders Only | [facility] | Osito Bowen | | | 2019 | | Gastroenterology | MD Jonathan [address] | | | | | [address], | [address] | | | | | [address] [place], | [place] [address] | | | | | [place] [address] | [phone] | | | | | [phone] | | | +--------+ + + + [...] [address]cher | | | | | | [place] [address] | | | | | | [phone] | | | | | | | | +--------+ + + + + | 03/28/ | Appointment | | Osito Bowen | | | 2018 | | | MD Lizbeth Castillo | | | | | | Dr [address] | | | | | | [place] [address] | | | | | | [phone] | | | | | | | | +--------+ + + + + as of this encounter Visit Diagnoses Not on filein this encounter"
--- OUTSIDE RECORDS SUMMARY | ~2019-02-16 | XMS | Encounter Summary ---
Demographics + + + | Address | [address] | | | [place] [address] | + + + | Home Phone | | + + + | Preferred Language | Unknown | + + + | Marital Status | Single | + + + | Anabaptist Affiliation | Unknown | + + + | Race | Unknown | + + + | Ethnic Group | Unknown | + + + Author + + + | Author | Gonsalo Swing by Swing | + + + | Organization | [facility] [employer] [facility] | + + + | Address | Unknown | + + + | Phone | Unavailable | + + + Support + + +---------+ + | Name | Relationship | Address | Phone | + + +---------+ + | Lady Hastings | ECON | Unknown | | + + +---------+ + Care Team Providers + +------+ + | Care Ground Water Technician Name | Role | Phone | + +------+ + | Arjun CarlosAlegre | PCP | | + +------+ + Reason for Visit +--------+ + | Reason | Comments | +--------+ + | Other | [facility] records from 01/01/19 | +--------+ + | Tasha | [facility] Lab results 04/08/18 | +--------+ + Encounter Details +--------+ + + + + | Date | Type | Department | Care Team | Description | +--------+ + + + + | 01/04/ | Documentati | [facility] | Josefina Olmos | Other ([facility] | | 2019 | on Only | Gastroenterology | D, RELAY ENGINEER | Health Initiatives | | | | [address], | | records from | | | | [address], | | 01/01/19); Other | | | | [place] [address] | | ([facility] | | | | [phone] | | Lab results 04/08/18) | +--------+ [...] | | | | | [place] [address] | | | | | | [phone] | | | | | | | | +--------+ + + + + | 03/28/ | Appointment | | Osito Bowen | | | 2018 | | | MD Lizbeth Castillo | | | | | | Dr [address] | | | | | | [place] [address] | | | | | | [phone] | | | | | | | | +--------+ + + + + as of this encounter Visit Diagnoses Not on filein this encounter"
--- OUTSIDE RECORDS SUMMARY | ~2019-02-16 | XMS | Encounter Summary ---
Demographics + + + | Address | [address] | | | [place] [address] | + + + | Home Phone | | + + + | Preferred Language | Unknown | + + + | Marital Status | Single | + + + | Yazidi Affiliation | Unknown | + + + | Race | Unknown | + + + | Ethnic Group | Unknown | + + + Author + + + | Author | Gonsalo enGene | + + + | Organization | [facility] [employer] [facility] | + + + | Address | Unknown | + + + | Phone | Unavailable | + + + Support + + +---------+ + | Name | Relationship | Address | Phone | + + +---------+ + | Lady Hastings | ECON | Unknown | | + + +---------+ + Care Team Providers + +------+ + | Care Metal Machine Setter Name | Role | Phone [...] + + | 01/23/ | Telephone | [facility] | Josefina Olmos | Other (pre-procedure | | 2018 | | Gastroenterology | D, WALNUT DEHYDRATOR OPERATOR | call ) | | | | [address], | | | | | | [address] [place], | | | | | | [place] [address] | | | | | | [phone] | | | +--------+ + + + [...] | | | | | [place] [address] | | | | | | [phone] | | | | | | | | +--------+ + + + + | 03/28/ | Appointment | | Osito Bowen | | | 2019 | | | MD Jonathan [address] | | | | | | [address] | | | | | | [place] [address] | | | | | | [phone] | | | | | | | | +--------+ + + + + as of this encounter Visit Diagnoses Not on filein this encounter"
--- OUTSIDE RECORDS SUMMARY | ~2019-02-16 | XMS | Encounter Summary ---
Demographics + + + | Address | [address] | | | [place] [address] | + + + | Home Phone [...] + + + | Author | Gonsalo StyleUp | + + + | Organization | [facility] [employer] [facility] | + + + | Address | Unknown | + + + | Phone | Unavailable | + + + Support + + +---------+ + | Name | Relationship | Address | Phone | + + +---------+ + | Lady Hastings | ECON | Unknown | | + + +---------+ + Care Team Providers + +------+ + | Care Finished Goods Planner Name | Role | Phone | + [...] + + | 02/07/ | Telephone | [facility] | Josefina Olmos | Other (TB TEST ) | | 2019 | | Gastroenterology | D, MANAGER FRAUD | | | | | [address], | | | | | | [facility] [address] [place], | | | | | | [place] [address] | | | | | | [phone] | | | +--------+ + + + [...] | | | | | [place] [address] | | | | | | [phone] | | | | | | | | +--------+ + + + + | 03/28/ | Appointment | | Osito Bowen | | | 2019 | | | MD Lizbeth Castillo | | | | | | [address] | | | | | | [place] [address] | | | | | | [phone] | | | | | | | [...] unspecified location | | | | | ([facility]) | | + +--------+ + + as of this encounter Visit Diagnoses + + | Diagnosis | + + | Ulcerative colitis with rectal bleeding, unspecified location ([facility]) - Primary | + +"
--- OUTSIDE RECORDS SUMMARY | ~2019-02-16 | XMS | Encounter Summary ---
Demographics + + + | Address | [address] | | | [place] [address] | + + + | Home Phone [...] + + + | Author | Gonsalo [employer] | + + + | Organization | [facility] | + + + | Address | Unknown | + + + | Phone | Unavailable | + + + Support + + +---------+ + | Name | Relationship | Address | Phone | + + +---------+ + | Lady Hastings | ECON | Unknown | | + + +---------+ + Care Team Providers + +------+ + | Care Vp Packaging Name | Role | Phone | + [...] + + | 01/26/ | Hospital | [facility] | Osito Bowen | Ulcerative colitis | | 2019 | Encounter | REGIONAL SURGERY | MD Jonathan [address] | with rectal bleeding | | | | CENTER INTRA OP | [address] | ([facility]); Ulcerative | | | | [address] | [place] [address] | colitis with rectal | | | | [place], [place] | [phone] | bleeding, | | | | [address] | | unspecified location | | | | [phone] | | ([facility]); BRBPR | | | [...] may be different f rom the original. [facility] Service: Gastroenterology Brief Post-op Discharge Note [...] Your Medications These medications were sent to [facility] [address] [facility] [place] [facility] [address] [facility] [facility] [place] [address] metroNIDAZOLE 500 MG tablet Osito Bowen MD [...] [address] | | | | | | [place] [address] | | | | | | [phone] | | | | | | | | +--------+ + + + + | 03/28/ | Appointment | | Osito Bowen | | | 2018 | | | MD Lizbeth Castillo | | | | | | [address] | | | | | | [place] [address] | | | | | | [phone] | | | | | | | [...] location | | | | | | ([facility]) BRBPR | | | [...] no evidence of | | | dysplasia. TWK:[facility]:C2NR GROSS DESCRIPTION: A. The specimen is | [...] LABORATORY: The technical component was performed by [employer] | | | [employer], [address] [facility] [address] (Staple Cutter: | | | Loraine Chiu MD; CLIA# [id number]). The professional interpretation was | | | performed by [employer], [facility], [address] [place] [address]. Diagnostician: Elio Sosa MD | | | Pathologist Electronically Signed 2019 | | + + + + +---------+ + + | Performing | Address | City/State/[facility] Cent[facility] | Phone Number | | Organization | [...] + + + | [facility] | [address] [facility] | [place] [address] | [phone] | | LABORATORY | [address] | | [...]
--- OUTSIDE RECORDS SUMMARY | ~2019-02-16 | XMS | Encounter Summary ---
Demographics + + + | Address | [address] | | | [place] [address] | + + + | Home Phone | | + + + | Preferred Language | Unknown | + + + | Marital Status | Single | + + + | Buddhism Affiliation | Unknown | + + + | Race | Unknown | + + + | Ethnic Group | Unknown | + + + Author + + + | Author | Gonsalo KirkeWeb | + + + | Organization | [facility] | + + + | Address | Unknown | + + + | Phone | Unavailable | + + + Support + + +---------+ + | Name | Relationship | Address | Phone | + + +---------+ + | Lady Hastings | ECON | Unknown | | + + +---------+ + Care Team Providers + +------+ + | Care Production Line Operator Name | Role | Phone | [...] + + | 01/06/ | Telephone | [facility] | Josefina Olmos | Other | | 2019 | | Gastroenterology | D, PROCESS TANK TENDER | | | | | [address], | | | | | | [facility] [address] [place], | | | | | | [place] [address] | | | | | | [phone] | | | +--------+ + + + [...] | | | | | [place] [address] | | | | | | [phone] | | | | | | | | +--------+ + + + + | 03/28/ | Appointment | | Osito Bowen | | | 2019 | | | MD Jonathan [address] | | | | | | [address] | | | | | | [place] [address] | | | | | | [phone] | | | | | | | | +--------+ + + + + as of this encounter Visit Diagnoses Not on filein this encounter"
--- OUTSIDE RECORDS SUMMARY | ~2019-02-16 | XMS | Encounter Summary ---
Demographics + + + | Address | [address] | | | [place] [address] | + + + | Home Phone | | + + + | Preferred Language | Unknown | + + + | Marital Status | Single | + + + | Yarsani Affiliation | Unknown | + + + | Race | Unknown | + + + | Ethnic Group | Unknown | + + + Author + + + | Author | Gonsalo [employer] | + + + | Organization | [facility] | + + + | Address | Unknown | + + + | Phone | Unavailable | + + + Support + + +---------+ + | Name | Relationship | Address | Phone | + + +---------+ + | Lady Hastings | ECON | Unknown | | + + +---------+ + Care Team Providers + +------+ + | Care Comp Field Case Manager Name | Role | Phone | + +------+ + | Arjun CarlosAlegre | PCP | | + +------+ + Reason for Visit +--------+ + | Reason | Comments | +--------+ + | Other | [facility] records from 01/01/19 | +--------+ + | Tasha | [facility] Lab results 04/08/18 | +--------+ + Encounter Details +--------+ + + + + | Date | Type | Department | Care Team | Description | +--------+ + + + + | 01/04/ | Documentati | [facility] | Josefina Olmos | Other ([facility] | | 2019 | on Only | Gastroenterology | D, TERRAZZO WORKER APPRENTICE | Health Initiatives | | | | [address], | | records from | | | | [address], | | 01/01/19); Other | | | | [place] [address] | | ([facility] | | | | [phone] | | Lab results 04/08/18) | +--------+ [...] | | | | | [place] [address] | | | | | | [phone] | | | | | | | | +--------+ + + + + | 03/28/ | Appointment | | Osito Bowen | | | 2018 | | | MD Lizbeth Castillo | | | | | | Dr [address] | | | | | | [place] [address] | | | | | | [phone] | | | | | | | | +--------+ + + + + as of this encounter Visit Diagnoses Not on filein this encounter"
--- OUTSIDE RECORDS SUMMARY | ~2019-02-16 | XMS | Encounter Summary ---
Demographics + + + | Address | [address] | | | [place] [address] | + + + | Home Phone [...] + + + | Author | [employer] | + + + | Organization | [facility] [employer] | + + + | Address | Unknown | + + + | Phone | Unavailable | + + + Support + + +---------+ + | Name | Relationship | Address | Phone | + + +---------+ + | Lady Hastings | ECON | Unknown | | + + +---------+ + Care Team Providers + +------+ + | Care Manager Science Name | Role | Phone | + [...] + + | 12/08/ | Documentati | [facility] | Nayalaminnatasha Osito | Other (REFERRAL FROM | | 2019 | on Only | Gastroenterology | MD Jonathan [address] | MEENAKSHI CHRISTIANSON) | | | | [address], | [address] | | | | | [address] [place], | [place] [address] | | | | | [place] [address] | [phone] | | | | | [phone] | | | +--------+ + + + [...] | | | | | | [place] [address] | | | | | | [phone] | | | | | | | | +--------+ + + + + | 03/28/ | Appointment | | Osito Bowen | | | 2019 | | | MD Lizbeth Castillo | | | | | | Dr Butcher | | | | | | [place] [address] | | | | | | [phone] | | | | | | | | +--------+ + + + + as of this encounter Visit Diagnoses Not on filein this encounter"
--- OUTSIDE RECORDS SUMMARY | ~2019-02-16 | XMS | Clinical Summary ---
Demographics + + + | Address | [address] | | | [place] [address] | + + + | Home Phone | | + + + | Preferred Language | Unknown | + + + | Marital Status | Unknown | + + + | Jewish Affiliation | Unknown | + + + | Race | Unknown | + + + | Ethnic Group | Unknown | + + + Author + + + | Author | [facility] | + + + | Organization | [facility] | + + + | Address | Unknown | + + + | Phone | Unavailable | + + + Care Team Providers + +------+ + | Care Woods Warden Name | Role | Phone | + +------+ + PP | Unavailable | + +------+ + Source Comments ION is fully live on both [facility] Ambulatory and [facility] InPatient.[facility] Allergies Not on File Current [...]
[~2019-02-16 21:42] MED LIST changes: +ACETAMINOPHEN500 MG PO
--- NOTE | 2019-02-17 00:22 | NUR ---
Patient arrived to unit via stretcher, able to slide over to bed without assistance. Patient is alert and oriented x4, follows commands appropriately. Breathing is unlabored, RR between 28 and 32, SpO2 94% on 2L O2 NC, lungs are clear throughout, denies feeling SOB. BP WNL, HR > 110, sinus tach, peripheral pulses well felt throughout in all extremities. Patient appears pale, diaphoretic and clammy. Abdomen is mildly distended, tender to palpation, bowel tones active. Patient has not voided yet at this time. Skin grossly intact, cheeks are reddened, reddened area on chest noted. Patient denies pain at this time, has IV bolus of LR infusing on straight tubing, IV abx infusing started in ED, IV site intact, flushes well. Patient denies needs at this time, call light within reach.
--- NOTE | 2019-02-17 01:35 | NUR ---
Strated infusion of PRBC, administered per policy, verified by this RN and MAGGIE Tenorio. Patient has no acute change in assessment from previous, vitals remain unchanged. Patient denies needs at this time, denies pain, states "I am just tired." Call light within reach.
--- NOTE | 2019-02-17 03:00 | NUR ---
Assisted patient to BSC, SBA, denies SOB, breathing even and unlabored with activity, now resting in bed again, breathing is unlabored, RR 26, SpO2 95% on room air. Denies further needs at this time. Call light within reach.
--- NOTE | 2019-02-17 03:44 | NUR ---
Patient had temperature change from 99.4 to 97.8 after blood administration. HR change from 104 at start of administration, now 91, RR start of administration 26, RR now between 28 and 34, systolic pressure has not dropped more than [address] Palomino notified of temperature change, he orders 500 mg PO tylenol PRN, wait 30 minutes after tylenol administration, then begin second bag of PRBC. Patient denies feeling SOB, denies chest pain, no urticaria noted, denies pruritus, denies back pain. Patient states "I feel okay, just like I did before."
--- NOTE | 2019-02-17 04:45 | NUR ---
Assisted patient to BSC, SBA. Now resting in bed again. Assessment done, no acute change from previous, no change in vitals. Denies needs at this time. IV sites intact, PRBC continue to infuse. Call light within reach.
--- NOTE | 2019-02-17 05:00 | NUR ---
Assessment done, no acute change from previous, patient states "I feel pretty good. I think the blood is helping." Denies needs at this time, vitals WNL, call light within reach.
--- NOTE | 2019-02-17 06:30 | NUR ---
Patient remains restful with eyes closed, breathing is unlabored, RR between 24 and 30 with coughing, titrated to 1L O2 via NC, SpO2 91%, blood now done, patient denies urticaria, denies pruritus, denies back pain, vitals remain unchanged. Denies needs at this time. Call light within reach.
--- NOTE | 2019-02-17 07:38 | NUR ---
Patient up to bathroom, SBA, tolerated ambulation well, when back in bed, patient HR increased to 180s, SVT, Dr. Palomino notified, at bedside within 5 minutes. Verbal order for 5mg IV metoprolol x1 now. After metoprolol administration, patient heart rate now 95, sinus rhythm.
--- NOTE | 2019-02-17 07:46 | NUR ---
Resting in bed, talking on phone, alert and oriented, HR 100. Report received from night time nanny.
--- NOTE | 2019-02-17 09:21 | NUR ---
HEADACHE 03/20, TYLENOL GIVEN FOR THAT AND TEMP OF 102.6. RESTING IN BED.
--- NOTE | 2019-02-17 09:25 | NUR ---
Dr Palomino notified of fever, headache, tachypnea and tachycardia. New orders received.
--- NOTE | 2019-02-17 09:29 | NUR ---
optical lab technician here to draw blood.
--- NOTE | 2019-02-17 10:03 | NUR ---
up to bedside commode with help from staff. tolerated well. back to bed, apple sauce provided as requested from patient.
--- NOTE | 2019-02-17 10:28 | NUR ---
Called for help with call light, states had an accident. Tried to pass gas but had loose BM come out onto bed, linens removed, patient up to commode to have BM. Kyra NOYOLA helping to place new linens and help patient back to bed.
--- NOTE | 2019-02-17 10:54 | NUR ---
CHANGED PATIENT BED LINENS. GOT HER A FAN PATIENT REQUESTED IT. SHE ORDERED HER OWN LUNCH. CHANGED HER GOWN. ASKED HER IF SHE WANTED A BED BATH AND SHE SAID NO.
--- NOTE | 2019-02-17 11:19 | NUR ---
SANDEEP SERRANO REPAIRER CYLINDER HEADS HELPED PATIENT UP TO COMMODE TO URINATE, PATIENT DID CALL FOR HELP FIRST USING CALL LIGHT.
--- NOTE | 2019-02-17 12:17 | NUR ---
PATIENT SITTING UP RIGHT IN BED WITH FAN BLOWING ON HER, SHE STATES FEELING HOT. LUNCH ARRIVED. I TALKED WITH PATIENT ASKING HER TO PLEASE CALL IF WANTING TO GET UP BECAUSE OF ALL THE CABLES AND WIRES CONNECTED. SHE STATES WILL CALL FIRST.
--- NOTE | 2019-02-17 18:02 | NUR ---
Had SVT this morning at change of shift, now scheduled Lopressor IV has helped keep HR around 100. Requires 2-3L of O2 while sleeping. RA when awake. Stable on feet, Voiding plenty of urine and having soft BM's. Fever 102.6 late morning: tylenol, ibuprofen and blood cultures. Been afebrile since. Also headache.
--- NOTE | 2019-02-17 19:30 | NUR ---
RECEIVED REPORT AT 1900, FOUND PT IN BED SLEEPING. V/S OVERALL WDL. NO NEW CONCERNS NOTED AT THIS TIME.
--- NOTE | 2019-02-17 20:59 | NUR ---
MAGGIE Rebolledo heated the pts rice and I delivered it to her.
--- NOTE | 2019-02-17 21:15 | NUR ---
HR IN THE LOW 100, 5MG IV LOPRESSOR GIVEN. OTHER V/S INCLUDING TEMP ARE WDL AT THIS TIME. ALL LOBES ARE CLEAR, PT DENIES SOB, ABD SOUNDS PRESENT. NO PERIPHERAL EDEMA NOTED. ONE THING TO NOTE IS THAT PT HAS VISIBLILY PULSATING RIGHT NECK VESSELS. WHEN AUSCULTATING, A SLIGHT "SWISCHING" SOUND WAS HEARD. WILL LET DAY SHIFT KNOW AND MD BAILEY AT SOME POINT.
--- NOTE | 2019-02-17 22:18 | NUR ---
PT AWAKE AND WATCHING TV. NO NEW CONCERNS NOTED AT THIS TIME.
--- NOTE | 2019-02-17 22:58 | NUR ---
PT IS STILL AWAKE IN BED. NO NEW CONCERNS . SPUTUM SAMPLE IS STILL NEEDED.
--- NOTE | 2019-02-18 | NUR ---
PT AT THIS TIME IS STILL AWAKE. URINE OUTPUT IS ADEQUATE. HR IS IN THE 90'S. PT HAS REMAINED AFEBRILE SINCE START OF SHIT. ALL LOBES ARE CLEAR. PT HAS A DRY IRRITATING COUGH. NO NEW CONCERNS NOTED SO FAR.
--- NOTE | 2019-02-18 00:06 | NUR ---
Patient wanted a sandwich and chips. I ran downstairs and grabbed them for her. She was pleased and did not need anything further at this time.
--- NOTE | 2019-02-18 01:24 | NUR ---
PT JUST FELL ASLEEP AND NEEDED TO BE PUT ON 3L O2 OXY MASK. O2 SATS WERE IN THE MID 80'S.
--- NOTE | 2019-02-18 02:15 | NUR ---
AT THIS TIME IV SITE ON LEFT AC HAS INFILTRATED FROM VANCOMYCIN. WARM PACK APPLIED. NEW IV SITE TO BE STARTED.
--- NOTE | 2019-02-18 04:15 | NUR ---
PT SO FAR HAS NOT SLEPT MUCH. PT IS AWAKE IN BED.
--- NOTE | 2019-02-18 05:48 | NUR ---
AT START OF SHIFT PT WAS TACHY IN THE LOW 100'S. OTHER V/S WERE AND STILL ARE WDL. LOPRESSOR DOSES DROPPED HR INTO THE 80-90'S. PT HAS BEEN AFEBRILE ALL SHIFT. URINE OUTPUT IS ADEQUATE. ALL LOBES ARE CLEAR, NO JESS NOTED. SPUTUM SAMPLE IS STILL NEEDED. PT HAD A DRY COUGH ALL NIGHT. PERHAPS PT NEEDS A COUGH SUPRESSANT FOR TODAY. PT DID NOT SLEEP MUCH AT ALL. PT NEEDED TYLENOL AND MOTRIN FOR HER HEADACHE. WHILE SLEEPING, O2 SATS DROP INTO THE MID 80'S AND PT WAS PUT ON 3L O2 OXY MASK AND THEN 2L NC. PT HOWEVER HAD THE TENDENCY TO TAKE OFF HER O2 WHILE SLEEPING.
--- NOTE | 2019-02-18 07:30 | NUR ---
REPORT RECIEVED. PATIENT UP TO COMMODE. IS STABLE ON FEET.DENEIS SHORTNESS OF BREATH.
--- NOTE | 2019-02-18 08:00 | NUR ---
ASSESSMENT DONE. BREAKFAST ORDERED. TALKED WITH PATIENT ABOUT PLAN OF CARE, IS UNDERSTANDING. IV SITES PATENT.
--- NOTE | 2019-02-18 09:30 | NUR ---
DR. BAILEY HERE TO SEE PATIENT. PATIENT TO BE TRANSFERED TO MEDICAL FLOOR TODAY. TOOK BREAFAST WELL. DENIES NAUSEA. [facility].
--- NOTE | 2019-02-18 10:00 | NUR ---
HAS HAD THREE SOFT SEMI LIQUID STOOLS SINCE 0730 THIS AM.
--- NOTE | 2019-02-18 10:10 | NUR ---
REPORT TO MED-SURG. PATIENT IS RESTFULL IN BED.
--- NOTE | 2019-02-18 10:36 | NUR ---
AMBULATED TO ROOM 109 FROM ROOM 130. TOLERATED AMBULATION WELL. DENEIS SHORTNESS OF BREATH. REMAINS ON TELE #2.
--- NOTE | 2019-02-18 10:41 | NUR ---
PT WALKED OVER FROM CCU AT 1019. ASSESSMENT COMPLETE. RT IN TO EDUCATE ON ACCAPELLA DEVICE AND IS. PT RETURN DEMOSTRATED USE AND VERBALIZED UNDERSTANDING OF INSTRUCTIONS AND FUNCTION. PT UP TO SHOWER INDEPENDENTLY. ABLE TO AMBULATE TO BATHROOM, VOIDED 200ML. TRACE EDEMA IN ANKLES AND FEET. TIGHT LUNG SOUNDS, PRODUCTIVE COUGH. REMINDED PT WE NEED A SPUTUM SAMPLE.
--- NOTE | 2019-02-18 11:49 | NUR ---
PHARMACY WILL RETIME [facility] SO IT WILL RUN AFTER CEFAPIME.
--- NOTE | 2019-02-18 18:01 | NUR ---
PT TRANSFERED TO FLOOR FROM CCU. PT C/O "FEVER", TEMPS SHOWED MILD LOW GRADE TEMP, HIGHEST 99.4. ENCOURAGED PT TO USE IS, UNCOVER, AND MOVE. PT ALTERNATES IBU AND APAP FOR HEADACHE, EFFECTIVE. IVF RUNNING PER ORDER. PT EATING, VOIDING WELL. LUNGS DIM, PRODUCTIVE COUGH. INDEPENDENT IN ROOM.
--- NOTE | 2019-02-18 19:40 | NUR ---
RESTING, EYES CLOSED, NO RESP DISTRESS, CALL LIGHT AT BEDSIDE
--- NOTE | 2019-02-18 22:44 | NUR ---
PT C/O INSOMNIA, DR BAILEY NOTIFIED, NEW ORDERS FOR BENADRYL 25MG PO OBTAINED, PT DECLINES TELE. NOTIFIED, ORDERS TO DC TELE OBTAINED.
--- NOTE | 2019-02-18 23:03 | NUR ---
MEDICATED WITH BENADRYL 25MG PO C/O INSOMNIA, TESSALON PERLES 100MG PO PER COUGH AND RIB PAIN. UP TO BR INDEPENDENTLY, TOLERATED WELL. BACK TO BED. WARM PAD TO R UPPER BACK, SMALL HOLDING PILLOW GIVEN PER COMFORT TO HELP DECREASED PAIN WHEN COUGHING. NO EMESIS
--- NOTE | 2019-02-19 00:20 | NUR ---
RESTING, EYES CLOSED, IVF INFUSING, NO FURTHER C/O INSOMNIA OR COUGH, MED EFFECTIVE, CALL LIT AT BEDSIDE
--- NOTE | 2019-02-19 01:22 | NUR ---
ROUNDED ON PATIENT TO ANSWER PATIENT CALL LIGHT. THIS RN PROVIDED PATIENT WITH NEW GOWN PER PATIENT REQUEST AND EMPTIED URINE COLLECTION CONTAINER. CALL LIGHT WITHIN REACH. PATIENT DENIES ANY MORE NEEDS AT THIS TIME.
--- NOTE | 2019-02-19 02:11 | NUR ---
RECIEVED REPORT FROM MILAN RN, ALL QUESTIONS ANSWERED. THIS RN ROUNDED ON PATIENT FOR ASSESSMENT. ASSESSMENT COMPLETE, REFER TO ASSESSMENT. MEDICATIONS ADMINISTERED PER ORDER. PATIENT REPORTS "5/10" HEADACHE AND SORE RIBS "FROM COUGHING", PRN PAIN MEDICATION ADMINISTERED PER ORDER. PATIENT DENIES HAVING CHEST PAIN, SHORTNESS OF BREATH OR DIFFICULTY BREATHING. LUNGS ASSESSED, CLEAR IN UPPER LOBES, DIM IN BASES. PT REPORTS HAVING DRY, OCCASIONAL COUGH, NON PRODUCTIVE. IV FLUIDS INFUSING PER ORDER. CALL LIGHT WITHIN REACH. PT DENIES ANY FURTHER NEEDS AT THIS TIME.
--- NOTE | 2019-02-19 04:31 | NUR ---
ROUNDED ON PATIENT RESTING IN BED WITH EYES CLOSED, RESPIRATORY RATE IS EVEN AND UNLABORED. CALL LIGHT WITHIN REACH.
--- NOTE | 2019-02-19 05:15 | NUR ---
ROUNDED ON PATIENT SITTING UP IN BED. NEW GOWN PROVIDED PER PATIENT REQUEST. SCHEDULED MEDICATION ADMINISTERED PER ORDER. REPLACED BAG OF CONTINOUS IV FLUIDS PER ORDER. CALL LIGHT WITHIN REACH. PT DENIES ANY FURTHER NEEDS AT THIS TIME.
--- NOTE | 2019-02-19 06:51 | NUR ---
ROUNDED ON PATIENT RESTING AWAKE IN BED. PATIENT REPORTS "7/10" PAIN RATING OF A HEADACHE, PRN PAIN MEDICATION ADMINISTERED PER DEC ORDER. FRESH WATER PROVIDED PER PATIENT REQUEST. CALL LIGHT WITHIN REACH. PATIENT DENIES ANYMORE NEEDS AT THIS TIME.
--- NOTE | 2019-02-19 07:42 | NUR ---
Pt resting in her bed, awoke breifly and fell quickly back to sleep. Call light and personal items within reach.
--- NOTE | 2019-02-19 08:54 | NUR ---
PT UP TO THE CHAIR TO EAT BREAKFAST. SHE DENIE ANY CP OR SOB. VSS, NEURO INTACT. CALL DAWSON WITHIN REACH.
--- NOTE | 2019-02-19 10:03 | NUR ---
LR RATE CHANGED TO 75ML/HR ORDERED.
--- NOTE | 2019-02-19 10:08 | NUR ---
PT LYING IN BED AND DENIES ANY PAIN. CALL DAWSON IS IN REACH AND SCD'S ARE ON AND RUNNING.
--- NOTE | 2019-02-19 11:41 | NUR ---
Pt sleeping at this time.
--- NOTE | 2019-02-19 12:10 | NUR ---
CALL LIGHT ANSWERED. PATIENT ASKS FOR A NEW GOWN. CLEAN GOWN PROVIDED. CALL LIGHT WITHIN REACH. NO OTHER NEEDS AT THIS TIME
--- NOTE | 2019-02-19 13:39 | NUR ---
PT AWOKE TO VOICE AND STATES SHE HAS A NOEL WHICH IS UNDER CONTROL AND DOES NOT NEED ANYTHING FOR IT. SHE DENIES ANY SOB OR CHEST PAIN.
--- NOTE | 2019-02-19 13:59 | NUR ---
PATIENT RESTING IN BED. VITAL SIGNS DONE. I&O DONE BY RN. CALL LIGHT WITHIN REACH. NO OTHER NEEDS AT THIS TIME
--- NOTE | 2019-02-19 14:25 | NUR ---
PT REPORTS 6/10 HEAD ACHE PAIN, TYLENOL 500MG PO PRN GIVEN, PT REPORTS COUGH AND WOULD LIKE THE TESSALON MYA AT THIS TIME AND A WARM BLANKET WELL. ALL REQUESTS PROVIDED NO FURTHER NEEDS AT THIS TIME.
--- NOTE | 2019-02-19 15:49 | NUR ---
PT SLEEPING AT THIS TIME. SHE HAD STATED PRIOR THAT SHE SLEPT POORLY LAST NIGHT.
--- NOTE | 2019-02-19 16:37 | NUR ---
CALL LIGHT ANSWERED. PATIENT SITTING UP IN CHAIR. IV WRAPPED. SETS UP BATHROOM FOR SHOWER. PATIENT GOES TO TAKE A SHOWER. LINENS CHANGED. NO OTHER NEEDS AT THIS TIME
--- NOTE | 2019-02-19 16:37 | NUR ---
PT SHOWERING AT THIS TIME.
--- NOTE | 2019-02-19 17:06 | NUR ---
PT STATES SHE HAS A NOEL AND REQUESTED TYLENOL. IT HAS NOT BEEN ENOUGH TIME SINCE HER LAST DOSE AND THE PT WAS NOTIFIED. I ASKED IF SHE WOULD LIKE MOTRIN AND SHE STATES SHE WOULD NOT AND THAT SHE IS OK WITH NOTHING AT THIS TIME.
--- NOTE | 2019-02-19 17:13 | NUR ---
PATIENT RESTING IN BED. FAMILY IN ROOM. VITAL SIGNS DONE, CALL LIGHT WITHIN REACH. NO OTHER NEEDS AT THIS TIME
--- NOTE | 2019-02-19 17:40 | NUR ---
PT RESTING ON HER BED AND VISITING WITH FAMILY AT THIS TIME.
--- NOTE | 2019-02-19 19:05 | NUR ---
CHARGE REPORT FROM DAY CHARGE. DAY CHARGE INFORMED PT THAT SHE HAD RECEIVED A ONE TIME MED FOR A HEADACHE. PT THANKED HER.
--- NOTE | 2019-02-19 19:22 | NUR ---
RECIEVED REPORT FROM MEENAKSHI SERRANO. PATIENT RESTING IN BED WITH EYES CLOSED, RESPIRATORY RATE IS EVEN AND UNLABORED. IV FLUIDS INFUSING PER ORDER. CALL LIGHT WITHIN REACH. WHITE BOARD UPDATED.
--- NOTE | 2019-02-19 20:26 | NUR ---
ASSESSMENT COMPLETE, REFER TO ASSESSMENT. PATIENT REPORTS "9/10" PAIN DESCRIBED A HEADACHE, PT ALSO REPORTS SOME "SORE RIBS FROM COUGHING", SCHEDULED ONE TIME DOSE OF PAIN MEDICATION ADMINISTERED. SCHEDULED MEDICATION ADMINISTERED PER ORDER. ACTIVE BT NOTED, PT REPORTS PASSING FLATUS. CLEAR LUNG SOUNDS NOTED IN UPPER LOBES, AND DIM LUNG SOUNDS NOTED IN BASES. OCCASIONAL, NON PRODUCTIVE, DRY COUGH NOTED. ACAPELLA AND IS AT BEDSIDE. IV ASSESSED, WNL. IV FLUIDS INFUSING PER ORDER. PT DENIES CHEST PAIN, SHORTNESS OF BREATH OR DIFFICULTY BREATHING. CALL LIGHT WITHIN REACH. PT DENIES ANYMORE NEEDS AT THIS TIME.
--- NOTE | 2019-02-19 22:43 | NUR ---
ROUNDED ON PATIENT RESTING IN BED WITH EYES CLOSED, RESPIRATORY RATE IS EVEN AND UNLABORED. NO SIGNS OF TENSING OR GRIMACING. CALL LIGHT WITHIN REACH.
--- NOTE | 2019-02-19 22:54 | NUR ---
V/S AND I&O TAKEN AND RECORDED. WARM PACK PROVIDED PER PATIENT'S REQUEST. GAVE SHERBET FROM REF WITH PATIENT'S NAME.
--- NOTE | 2019-02-20 00:45 | NUR ---
TURKEY SANDWICH AND CHIPS PROVIDED.
--- NOTE | 2019-02-20 02:10 | NUR ---
ASSESSMENT COMPLETE, REFER TO ASSESSMENT. MEDICATION ADMINISTERED PER ORDER. DRY, NON PRODUCTIVE COUGH NOTED, PRN MEDICATION FOR COUGH ADMINISTERED PER ORDER. PT DENIES HAVING ANY PAIN, HEADACHE, SHORTNESS OF BREATH, DIFFICULTY BREATHING, OR CHEST PAIN. ACTIVE BOWEL TONES NOTED, PT REPORTS PASSING FLATUS. CLEAR LUNG SOUNDS NOTED IN UPPER LOBES, DIMINISHED LUNG SOUNDS IN BASES. NO SIGNS OF DISTRESS. IV FLUIDS INFUSING PER ORDER. PT DENIED WANTING SCDS IN PLACE. FRESH WATER PROVIDED TO PATIENT. CALL LIGHT WITHIN REACH. PT DENIES ANYMORE NEEDS AT THIS TIME. INCENTIVE SPIROMETER AT BEDSIDE.
--- NOTE | 2019-02-20 05:12 | NUR ---
PATIENT SLEPT ON AND OFF THROUGHOUT THE NIGHT. X1 SCHEDULED PAIN MEDICATION FOR HEADACHE. X1 PRN MEDICATION FOR COUGH. X1 PRN MEDICATION FOR SLEEP THIS SHIFT. A&O. ROOM AIR. IV FLUIDS INFUSING PER ORDER. REGULAR DIET. INCENTIVE SPIROMETER AND ACAPELLA AT BEDSIDE. PT REFUSED SCDs THROUGHOUT SHIFT. SBA, INDEPENDENT IN ROOM.
--- NOTE | 2019-02-20 06:39 | NUR ---
ROUNDED ON PATIENT RESTING IN BED WITH EYES CLOSED, RESPIRATORY RATE IS EVEN AND UNLABORED. NEW BAG OF CONTINOUS IV FLUIDS HUNG PER ORDER. URINE COLLECTION HAT IN TOILET EMPTIED. PT DENIES ANY MORE NEEDS AT THIS TIME. CALL LIGHT WITHIN REACH.
--- NOTE | 2019-02-20 07:02 | NUR ---
ROUNDED ON PATIENT RESTING AWAKE IN BED. PATIENT REPORTS "4/10" PAIN A HEADACHE, PRN PAIN MEDICATION ADMINISTERED PER ORDER. CALL LIGHT WITHIN REACH. NO MORE NEEDS AT THIS TIME.
--- NOTE | 2019-02-20 08:10 | NUR ---
PT IN BED, DROWSY BUT ORIENTED. REPORTS MILD HEADACHE BUT STATES "I JUST GOT SOMETHING FOR IT." DENIES NAUSEA OR OTHER CONCERN. NOTED OCC COUGH WITHOUT SPUTUM PRODUCTION PER PT. SATTING 95% ON RA. PT DENIES SOB OR CHEST DISCOMFORT. IV INFUSING WNL. PT WAITING FOR BREAKFAST. INDEPENDENT IN ROOM. CALL LIGHT WITHIN REACH.
--- NOTE | 2019-02-20 09:36 | NUR ---
PT HAD SECOND SOFT BROWN BM, NO DAMIEN BLOOD NOTED. GUIAC TEST COMPLETED WITH POSITIVE RESULTS. DR. BAILEY NOTIFIED. PT LYING IN BED TALKING WITH DR. BAILEY AT THIS TIME. CALL LIGHT WITHIN REACH.
--- NOTE | 2019-02-20 10:16 | NUR ---
PATIENT IN BED RESTING WITH EYES CLOSED. CALL LIGHT IN REACH. NO FURTHER NEEDS AT THIS TIME.
--- NOTE | 2019-02-20 10:31 | NUR ---
UNIT ONE OF TWO STARTED AT THIS TIME, PRE VS TAKEN AND STARTED IN IV SITE OF RIGHT AC.
--- NOTE | 2019-02-20 10:52 | NUR ---
15MINUTE CHECK COMPLETED AND VS TAKEN. PT APPEARS TO BE SLEEPING, BUT FOLLOWS COMONDS AND KEEPS HER EYS CLOSED. IV RATE INCREASED TO 150MLS HOUR.
--- NOTE | 2019-02-20 11:05 | NUR ---
PT RESTING IN BED WITH EYES CLOSED, AROUSES EASILY TO VOICE. BLOOD INFUSING AT 150ML/HR, PT NATHALIE WELL, NO SIGNS OF TRANSFUSION REACTION NOTED. CALL LIGHT WITHIN REACH.
[2019-02-20] MEDS ORDERED: PREDNISONE10 MG (12:59)
--- NOTE | 2019-02-20 13:32 | NUR ---
IV IN RIGHT HAND AND RIGHT AC BOTH LEAKING. DC'D AT THIS TIME. NEW 20G IV STARTED IN LEFT WRIST. INFUSING WELL.
--- NOTE | 2019-02-20 13:35 | NUR ---
FIRST UNIT OF PACKED RED BLOOD CELLS INFUSED, NO INFUSION REACTION NOTED. LYING IN BED, INDEPENDENT IN ROOM. DENIES NEEDS OR CONCERNS AT THIS TIME. CALL LIGHT WITHIN REACH.
--- NOTE | 2019-02-20 14:10 | NUR ---
SECOND UNIT OF PACKED RED BLOOD CELL STARTED AT THIS TIME. PT SITTING IN BED WATCHING TV.
--- NOTE | 2019-02-20 14:22 | NUR ---
15 MIN BLOOD ASSESSMENT COMPLETED. NO SIGNS OF REACTION NOTED AT THIS TIME. PT DENIES NEEDS OR CONCERNS. INFUSION RATE INCREASED TO 150ML/HR. CALL LIGHT WITHIN REACH.
--- NOTE | 2019-02-20 14:51 | NUR ---
PATIENT SITTING ON BED TALKING ON PHONE. CALL LIGHT IN REACH. NO FURTHER NEEDS AT THIS TIME.
[2019-02-20] MEDS ORDERED: BUDESONIDE EC3 MG PO (16:49)
--- NOTE | 2019-02-20 17:10 | NUR ---
SECOND UNIT OF PRBC COMPLETED AT THIS TIME. IV SL AND PT UP TO SHOWER INDEPENDENTLY. LINENS CHANGED BY FAMILIA NOYOLA.
--- NOTE | 2019-02-20 18:36 | NUR ---
PT CALLED AND REPORTED SEVERE ITCHING OF BOTH HANDS, MOSTLY PALMS. NO RASH NOTED. NOTIFIED DR. BALIEY AND RECIEVED ONE TIME ORDER OF BENADRYL. WILL CONT TO MONITOR.
--- NOTE | 2019-02-20 19:25 | NUR ---
BEDSIDE REPORT RECEIVED FROM MAGGIE BUTT. PT RESTING IN BED SORTING THROUGH MAIL. IVF INFUSING WNL. CALL LIGHT IN REACH. NO REQUESTS AT THIS TIME.
--- NOTE | 2019-02-20 20:13 | NUR ---
PT ASSESSMENT COMPLETE. LUNGS CLEAR THROUGHOUT ALL LOBES. VSS. PT RESTING IN BED, SCDS ON. CALL LIGHT IN REACH. PT DENIES TOILETING NEEDS AT THIS TIME. ICE WATER REFILLED. IVF INFUSING WNL.
--- NOTE | 2019-02-20 20:15 | NUR ---
V/S AND I&O TAKEN AND CHARTED.
--- NOTE | 2019-02-20 23:20 | NUR ---
IN PT ROOM FOR MEDICATION ADMINISTRATION. PT RESTING IN BED, ON CELL PHONE. REFUSES ENEMA AT THIS TIME, DISCUSSED PLAN FOR ADMINISTRATION BEFORE BED, AFTER BM. CALL LIGHT IN REACH.
--- NOTE | 2019-02-21 00:15 | NUR ---
IN PT ROOM FOR MEDICATION ADMINISTRATION. PT RESTING IN BED, AWAKENS TO VOICE. EDUCATION PROVIDED REGARDING ENEMA. CALL LIGHT IN REACH. IVF INFUSING WNL. LIGHTS OFF IN ROOM.
--- NOTE | 2019-02-21 02:33 | NUR ---
IN PT ROOM FOR MEDICATION ADMINISTRATION. PT AWAKENS EASILY. ASSESSMENT COMPLETE. PT C/O 5/10 NOEL, PRN TYLENOL ADMINISTERED. LIGHTS OFF IN ROOM. IVF INFUSING WNL. CALL LIGHT IN REACH.
--- NOTE | 2019-02-21 04:40 | NUR ---
CHECKED ON PT, RESTING IN BED ON SIDE. BREATHING EQUAL AND NON-LABORED. LIGHTS OFF IN ROOM.
--- NOTE | 2019-02-21 05:26 | NUR ---
PHONE CALL TO MD, CBC AND BMP LABS ORDERED FOR THIS AM.
--- NOTE | 2019-02-21 06:31 | NUR ---
PT RESTED IN BED THROUGHOUT SHIFT, INDEPENDENT IN ROOM. QS VOIDS. PRN TYLENOL FOR NOEL. VSS. IVF INFUSING WNL THROUGHOUT SHIFT. DR. DONIS IN TO CONSULT PT.
--- NOTE | 2019-02-21 06:50 | NUR ---
PT RESTING ON SIDE WITH EYES CLOSED. BREATHING NON-LABORED.
--- NOTE | 2019-02-21 08:00 | NUR ---
PATIENT SITTING IN BED DOING HER MAKEUP. CALL LIGHT IN REACH. NO FURTHER NEEDS AT THIS TIME.
--- NOTE | 2019-02-21 09:00 | NUR ---
PT RESTING IN BED WITH EYES CLOSED UPON ENTERING ROOM. AWAKENS EASILY TO VOICE. PT DENIES PAIN, NAUSEA, OR OTHER CONCERNS AT THIS TIME. IV INFUSING WNL, FLUSHES EASILY, SITE INTACT. PT INDEPENDENT IN ROOM. CALL LIGHT WITHIN REACH.
--- NOTE | 2019-02-21 12:04 | NUR ---
PT UP TO RESTROOM INDEPENDENTLY. AWARE OF NPO STATUS. DENIES NEEDS OR CONCERNS AT THIS TIME.
--- NOTE | 2019-02-21 13:33 | NUR ---
MAGGIE BUTT RECOMMENDED A WAIT TO VISIT-PT IS SCHEDULED TO HAVE EGD TODAY AND IS APPARENTLY NOT VERY HAPPY ABOUT IT. PT HAS RM DARKENED, WILL FOLLOW NEEDED
--- NOTE | 2019-02-21 15:32 | NUR ---
PT RESTING IN BED WITH LIGHTS OFF. COMPLAINS OF HEADACHE, UNABLE TO ADMINISTER TYLENOL D/T NPO STATUS. CONFERRED WITH DR. BAILEY. WILL GIVE PT WARM PACK AT THIS TIME AND MONITOR. PT INDEPENDENT IN ROOM. CALL LIGHT WITHIN REACH.
--- NOTE | 2019-02-21 16:00 | NUR ---
PT OFF FLOOR FOR EGD.
--- NOTE | 2019-02-21 17:51 | NUR ---
02/21/19 175 Christine Kenny 1624 PT ARRIVED IN PACU SLEEPY WITH NO C/O'S.
--- NOTE | 2019-02-21 17:54 | CONS ---
[facility] [address] [place], [place] [address] Signed DATE OF CONSULTATION: 02/20/2019 PROBLEM: Significant anemia, known ulcerative colitis, recent colonoscopy showing colitis. HISTORY OF PRESENT ILLNESS: This 39-year-old white woman who has had at least a 10-year history, diagnosed with ulcerative colitis. Review of her records shows colonoscopy performed by Dr. Dom Mon in 2006 showing a normal colonoscopy, known history at that time a family history of colitis in mother. In 2007, colonoscopy followup confirmed colitis. Since that time, the patient was managed by Dr. Matias Uriarte in [place], variably treated with steroids and other interventions but not biologic agents so far as I can tell. Indeed, she was admitted to the hospital. She says on or about January 09, and was noted to have blood clots. She was transfused and she was anemic. Strangely those records were not noted in electronic record here but she says she was managed here. She was discharged from the hospital in October of this year, having had an acute flare of ulcerative colitis and noted to have little success in linking up with a metal precision machine assembler for further management. She has been more recently managed through [facility] by Dr. Bowen including colonoscopy performed on January 26, 2019, following bright red blood per rectum. Findings consistent with ulcerative colitis. She has been treated and continues to be treated with prednisone 20 mg daily, that was considered for transposition to budesonide steroid. Her compliance is uncertain. She is recommended to stop mesalamine 1000 mg suppository that had been previously. Her recent admission was for that of malaise, temperature to 103.5, cough, and findings consistent with a right-sided pneumonia. She was treated with broad-spectrum antibiotics and now is on amoxicillin and Flagyl. She is being considered for biologic therapy regarding her ulcerative colitis problem. She was noted to have a hematocrit today of 22.1 down from 25.1 and repeated at 21.8. White count initially on admission was 21.7 and now 14.7. Overall, she has no complaints of severe abdominal pain and denies any blood per rectum recently. She has had no hematemesis. Denies epigastric pain. The patient to my knowledge has not been on any cytoprotective agent of her stomach despite being on high-dose steroids in recent times. Electronically Signed By: NILDA DONIS MD 02/21/19 1754 PATIENT NAME: LIDA GALAVIZ CONSULTATION DATE OF : 84 REPORT #: [id number] PHYSICIAN: NILDA DONIS MD PCP: MEENAKSHI CHRISTIANSON REPORT IS CONFIDENTIAL AND NOT TO BE RELEASED WITHOUT AUTHORIZATION [facility] [address] [place], [place] [address] Signed PAST MEDICAL HISTORY: Includes: 1. Ulcerative colitis as described. 2. History of ectopic . 3. Recent right lower lobe pneumonia. 4. She is noted to have sulfa allergy which manifests as tongue swelling. MEDICATIONS: Most recent medications included Tylenol 1000 mg as needed for pain and prednisone 60 mg daily. FAMILY HISTORY: Includes ulcerative colitis. REVIEW OF SYSTEMS: She denies any dysphagia, hematemesis, or recent blood per rectum. Denies abdominal pain currently. PHYSICAL EXAMINATION: GENERAL: Pleasant white woman who has multiple tattoos. She does not look systemically toxic. HEENT: Mucous membranes are moist. Trachea is midline. She has no hoarseness. CHEST: Clear. HEART: Regular without murmur. ABDOMEN: Nondistended and soft overall. There is no focal mass or tenderness. She has no ascites. EXTREMITIES: Show no clubbing, cyanosis, or edema. She has no peripheral edema, specifically of the lower extremities. LABORATORY DATA: Her chem profile is generally normal. Albumin is slightly low at 3.4. Urinalysis showed no hematuria. There were 5 white cells per high-power field and squames were 2+. Coag studies showed a ProTime of 14.2 with an INR of 1.0. Most recent CBC showed a white count of 14.7, hematocrit 21.8, and platelet count of 427,000. Imaging studies show some airspace consolidation in the right middle lobe. Small amount of pleural fluid compatible with lobar pneumonia involving the right middle lobe and parapneumonic effusion. This study was dated 02/16/2019. ASSESSMENT: The patient has longstanding ulcerative colitis. Discussed with her whether surgical intervention has ever been considered, she said she has heard of it. In her situation, it maybe an appropriate approach. She has not had a trial of biologic agents. No doubt related to the expense and her Electronically Signed By: NILDA DONIS MD 02/21/19 9471 PATIENT NAME: LIDA GALAVIZ CONSULTATION DATE OF : 84 REPORT #: [id number] PHYSICIAN: NILDA DONIS MD PCP: MEENAKSHI CHRISTIANSON REPORT IS CONFIDENTIAL AND NOT TO BE RELEASED WITHOUT AUTHORIZATION [address] [address] Signed underlying under insurance with Medicaid. She understands that long-term steroid use is not a good idea and her compliance with regimens previously undertaken has been marginal from what I can gather. The source of her anemia is uncertain, but it is not likely from recent blood loss per se. She has had blood per rectum in the past including in January also 5 to 6 months ago. I am somewhat concerned that her extremely high steroid dosage in the past without consideration for cytoprotection, specifically PPI medication, Carafate, or other similar intervention. She has no such medication at this time either. It is also notable that she is on Motrin and has taken this at home. In general terms, this should be avoided in ulcerative colitis and indeed in most types of colitis as it can exacerbate the problem for reasons that are not entirely known. RECOMMENDATION: She has recently had colonoscopy and therefore repeat colonoscopy at this point without abdominal pain or rectal bleeding, profound diarrhea would likely not reveal anything other than colitis at whatever stage she has right now. Consideration might be made for upper endoscopy, however, considering her steroid use and lack of cytoprotective agents. PLAN: Recommend initiation of PPI medication and Carafate at this time and will revisit the idea of upper endoscopy in the near future after review with Dr. Haines. If she does have an upper gastrointestinal source of bleeding that is completely asymptomatic, she has no epigastric pain. Review of her current medication shows she is taking mesalamine orally as it is appropriate, Flagyl orally, and now on budesonide 9 mg daily. She is also on amoxicillin related to the pneumonia issue and metoprolol also. Her use of prednisone concurrently with the budesonide is probably redundant and we will review that with Dr. Haines also. MD GUILHERME Nielsen/AJ /[id number] Electronically Signed By: NLIDA DONIS MD 02/21/19 1754 PATIENT NAME: LIDA GALAVIZ CONSULTATION DATE OF : 84 REPORT #: [id number] PHYSICIAN: NILDA DONIS MD PCP: MEENAKSHI CHRISTIANSON REPORT IS CONFIDENTIAL AND NOT TO BE RELEASED WITHOUT AUTHORIZATION [address] [address] Signed cc: Jocelyne Haines MD Copies: JOCELYNE HAINES MD ~ Electronically Signed By: NILDA DONIS MD 02/21/19 1754 PATIENT NAME: LIDA GALAVIZ CONSULTATION DATE OF : 84 REPORT #: [id number] PHYSICIAN: NILDA DONIS MD PCP: MEENAKSHI CHRISTIANSON REPORT IS CONFIDENTIAL AND NOT TO BE RELEASED WITHOUT AUTHORIZATION
--- NOTE | 2019-02-21 18:19 | NUR ---
PT RETURNED FROM PACU. ALERT AND ORIENTED. AMB INDEPENDENTLY TO HOSPITAL BED. DENIES PAIN, NAUSEA, OR OTHER CONCERNS. CALL LIGHT WITHIN REACH.
--- NOTE | 2019-02-21 19:00 | NUR ---
ROUNDED CHARGE PATIENT IS WALKING AROUND INDEPENDENTLY IN THE ROOM. PATIENT DENIES ANY PAIN OR NAUSEA. NO NEED NOTED. CALL LIGHT IN REACH.
--- NOTE | 2019-02-21 19:10 | NUR ---
BEDSIDE REPORT RECEIVED FROM MAGGIE BUTT. PT UP IN CHAIR, PLAN TO GET IN SHOWER AT THIS TIME. NO REQUESTS AT THIS TIME.
--- NOTE | 2019-02-21 20:46 | NUR ---
PT ASSESSMENT COMPLETE. PT RESTING IN BED EATING. DENIES ANY PAIN AT THIS TIME. VSS. IVF INFUSING WNL. FAMILY IN ROOM. CALL LIGHT IN REACH.
--- NOTE | 2019-02-21 21:55 | NUR ---
CALL LIGHT ANSWERED, IVF INFUSING WNL. PRN BENADRYL ADMINISTERED REQUESTED. PT ABLE TO SELF ADMINISTER OWN ENEMA WITH RN EDUCATION. PT LYING IN BED WITH CALL IN REACH.
--- NOTE | 2019-02-21 22:24 | NUR ---
CRANBERRY AND APPLE JUICE GIVEN. PATIENT'S SALSA IS IN THE REFRIGERATOR.
--- NOTE | 2019-02-21 23:58 | NUR ---
CHECKED ON PT, RESTING IN BED WITH EYES CLOSED. BREATHING EQUAL AND NON-LABORED. IVF INFUSING. LIGHTS OFF IN ROOM.
--- NOTE | 2019-02-22 01:10 | NUR ---
CALL LIGHT ANSWERED, PT C/O 06/20 NOEL. RESTING IN BED, DROWSY. ASSESSMENT COMPLETE. VSS. SCHEDULED MEDICATION ADMINISTERED AT THIS TIME. IVF FLUSHED WNL, IVF INFUSING. CALL LIGHT IN REACH. LIGHTS OFF IN ROOM.
--- NOTE | 2019-02-22 03:08 | NUR ---
PT RESTING IN BED WITH EYES CLOSED, BREATHING EQUAL AND NON-LABORED LIGHTS OFF IN ROOM. IVF INFUSING.
--- NOTE | 2019-02-22 05:49 | NUR ---
PT RESTING WELL IN BED THROUGHOUT SHIFT. INDEPENDENT IN ROOM. C/O NOEL X 1, PRN TYLENOL ADMINISTERED. IVF INFUSING WNL ORDERED. VSS. PT ABLE TO SELF ADMINISTER ORDERED ENEMA EDUCATED BY RN. LOW FIBER DIET.
--- NOTE | 2019-02-22 06:08 | NUR ---
PT SLEEPING, AWAKENS TO VOICE FOR MEDICATION ADMINISTRATION AND BACK TO SLEEP. IVF INFUSING WNL. CALL LIGHT IN REACH.
--- NOTE | 2019-02-22 07:40 | NUR ---
REPORT REVCEIVED FROM MAGGIE WOODARD. PT APPEARS TO BE ASLEEP. SLEPT MOST OF NIGHT.
--- NOTE | 2019-02-22 09:57 | NUR ---
ADMINISTERED MEDS WITH RN STUDENT TELMA. PT RESTING WITH EYES CLOSED UNTIL AWOKEN BY US.
[2019-02-22] MEDS ORDERED: AMOX TR-K CLV1 EAC1 PO (10:19)
[2019-02-22] MEDS ORDERED: PANTOPRAZOLE SO40 MG PO (10:20)
[2019-02-22] MEDS ORDERED: MESALAMINE4 GM/60 ML PR (10:20)
[2019-02-22] MEDS ORDERED: SUCRALFATE1 GM PO (10:20)
--- NOTE | 2019-02-22 11:27 | NUR ---
ADMINISTERED CARAFATE AND ONE TIME DOSE OF DILAUIDID FOR 6/10 PAIN IN THE NECK REGION. PT HAS LIGHTS OFF AND RESTING WITH EYES CLOSED. STATES SHE WILL ORDER LUNCH AND THEN BE READY FOR DISCHARGE AFTER EATING. SISTER IS COMING TO TRANSPORT.
--- NOTE | 2019-02-22 13:00 | OR ---
[facility] [address] [place], [place] [address] Signed DATE OF OPERATION: 02/21/2019 SURGEON: Nilda Donis MD PREOPERATIVE DIAGNOSES: 1. Significant anemia with ongoing steroid use without ulcer prophylaxis. 2. Ulcerative colitis, currently in flare. POSTOPERATIVE DIAGNOSES: 1. Small hiatal hernia. 2. Prepyloric gastric ulcers and erosions (not actively bleeding). PROCEDURE PERFORMED: Esophagogastroduodenoscopy with biopsy. ANESTHESIA: Intravenous sedation, fentanyl 100 mcg, Versed 4 mg. INDICATION: This 39-year-old white woman is hospitalized recently with significant anemia. She has ongoing ulcerative colitis, which has been diagnosed over a number of years. 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 She was recently on prednisone and transitioned to budesonide as well as mesalamine and underwent a colonoscopy only a few weeks ago showing active ulcerative colitis, but without sign of bleeding or ulceration. She has had various episodes of bleeding in the past several weeks. She was recently found to have markedly decreased hematocrit of 25 and recently 21, has undergone transfusion to hematocrit of 27. She has had no upper abdominal symptoms and no hematemesis. It is unlikely she needs colonoscopy at this time since she only had colonoscopy a few weeks ago, but I have recommended upper endoscopy after consultation on the basis of her high-dose steroid use without gastric prophylaxis for ulceration. She agrees. Notably, her preprocedure beta-HCG is negative. FINDINGS: Findings of note included prepyloric erosions and two small gastric ulcers. They were not actively bleeding, they were not deep. The duodenum was normal. CLOtest was negative. There was a small hiatal hernia, but no esophagitis. DESCRIPTION OF PROCEDURE: The patient was brought to the endoscopy suite and given topical Hurricaine spray, hypopharyngeal anesthesia and placed in lateral decubitus position. She was given Electronically Signed By: NILDA DONIS MD 02/22/19 1300 PATIENT NAME: LIDA GALAVIZ OPERATIVE REPORT DATE OF : 84 REPORT #: [id number] PHYSICIAN: NILDA DONIS MD PCP: MEENAKSHI CHRISTIANSON REPORT IS CONFIDENTIAL AND NOT TO BE RELEASED WITHOUT AUTHORIZATION [facility] [address] [place], [place] [address] Signed intravenous sedation to the point of slurred speech and nystagmus with full cardiopulmonary monitoring. A bite block was placed. The Olympus video upper endoscope was passed to hypopharynx. Vocal cords were normal. Scope was advanced to the esophagus, which was normal. The scope was advanced to the stomach, which was insufflated with air. Initially, there was no abnormality noted. Certainly, no blood or blood clot or anything of that sort. Pylorus was normal. Scope was passed through into the duodenum. The duodenum was slightly friable, but with no sign of ulceration or erosion and biopsy was obtained. Scope was withdrawn and noted were pre-pyloric gastric ulcerations x2. They were superficial and not deep and not bleeding, one of them was biopsied. There were two erosions in the antrum of the stomach as well. Retroflexed view was undertaken upon withdrawal of the scope showing a small hiatal hernia. Scope was straightened, withdrawn, and esophagus appeared normal once again. The scope was removed and the patient was taken to recovery room in good condition. CONCLUDING DIAGNOSIS: Has ulcerations, whether or not they were contributing to her anemia is uncertain. Clearly she will need ulcer prophylaxis whenever on steroids, to include at this point PPI medication and for now Carafate. MD GUILHERME Nielsen/KEZIAL /[id number] cc: MD Robi Irizarry MD Lohith Veerappa Reddy, MD Copies: Osito Bowen MD, ROBERT MD Electronically Signed By: NILDA DONIS MD 02/22/19 1300 PATIENT NAME: LIDA GALAVIZ OPERATIVE REPORT DATE OF : 84 REPORT #: [id number] PHYSICIAN: NILDA DONIS MD PCP: MEENAKSHI CHRISTIANSON REPORT IS CONFIDENTIAL AND NOT TO BE RELEASED WITHOUT AUTHORIZATION [facility] [address] [place], [place] [address] Signed ADAIR DONIS MD ~ Electronically Signed By: NILDA DONIS MD 02/22/19 1300 PATIENT NAME: LIDA GALAVIZ OPERATIVE REPORT DATE OF : 84 REPORT #: [id number] PHYSICIAN: NILDA DONIS MD PCP: MEENAKSHI CHRISTIANSON REPORT IS CONFIDENTIAL AND NOT TO BE RELEASED WITHOUT AUTHORIZATION
== END 2019-02-22 13:15 | disposition home or self-care (01) | DRG 871 ==
LOC: ED 21:42 → MS 02-17 00:08 → CCU 02-17 00:08 → MS 02-18 10:19
PROVIDERS: Surgery; ADMIT Internal Medicine
PROC: 30233N1 Transfusion of Nonautologous Red Blood Cells into Peripheral Vein, Percutaneous Approach (ICD-10-PCS; 2019-02-16)
PROC: 0DB78ZX Excision of Stomach, Pylorus, Via Natural or Artificial Opening Endoscopic, Diagnostic (ICD-10-PCS; principal; 2019-02-21 16:00)
DX: A41.50 Gram-negative sepsis, unspecified (principal); J15.6 Pneumonia due to other Gram-negative bacteria; J96.01 Acute respiratory failure with hypoxia; K51.90 Ulcerative colitis, unspecified, without complications; K92.2 Gastrointestinal hemorrhage, unspecified; I47.1 Supraventricular tachycardia; D62 Acute posthemorrhagic anemia; K44.9 Diaphragmatic hernia without obstruction or gangrene; K25.9 Gastric ulcer, unspecified as acute or chronic, without hemorrhage or perforation; D50.0 Iron deficiency anemia secondary to blood loss (chronic); Z88.2 Allergy status to sulfonamides; Z87.891 Personal history of nicotine dependence; Z79.52 Long term (current) use of systemic steroids
CPT/HCPCS: 36415; 36430; 71046; 80048; 80053; 80202; 81001; 82728; 83540; 83605; 83735; 84466; 84703; 85025; 85610; 85651; 85730; 86850; 86900; 86901; 86920; 87040; 87449; 87502; 87899; 93306; 94667; 94668; 96361; 96365; 96367; 99153; 99284-25; G0500; J0456; J0692; J0696; J1885; J2250; J3010; J3370; J3475; J7030; J7060; J7120; J7512; P9016

== ENCOUNTER 2020-05-23 21:30 | Emergency (ER) | payer OTHER ==
[~2020-05-23] VITALS: Ht 165.1 cm; Wt 81.7 kg
--- OUTSIDE RECORDS SUMMARY | ~2020-05-23 | XMS | Encounter Summary ---
Demographics + + + | Address | [address] | | | [place] [address] | + + + | Home Phone | | + + + | Preferred Language | Unknown | + + + | Marital Status | Single | + + + | Denominational Affiliation | 1013 | + + + | Race | Unknown | + + + | Ethnic Group | Unknown | + + + Author + + + | Author | [facility] | | | and [place] | + + + | Organization | [facility] | | | and [place] | + + + | Address | Unknown | + + + | Phone | Unavailable | + + + Support + + + + + | Name | Relationship | Address | Phone | + + + + + | Marilyn Diallo | ECON | [place] | | | | | [address] | | + + + + + Care Team Providers + +------+ + | Care Vice President Sales And Marketing Name | Role | Phone | + +------+ + | Carlos Díaz NP | PCP | | + +------+ + Reason for Visit + +--------+ + | Reason | Onset | Comments | | | Date | | + +--------+ + | Appointment | 08/23/ | | | | 2013 | | + +--------+ + Encounter Details +--------+ + + + + | Date | Type | Department | Care Team | Description | +--------+ + + + + | 08/23/ | Telephone | [facility], | [facility] | | 2013 | | GASTROENTEROLOGY | [address] | | | | | [address] [place] | [address] | | | | | [address] [place], [place] | [place], [place] | | | | | [address] | [address] | | | | | [phone] | | | +--------+ + + + [...] documented as of this encounter Miscellaneous Notes Telephone Encounter - Debbie Pinon - 08/23/2014 11:58 AM PSTFollow up made with Danielle for 1 11/12/13. elephone Encounter - Kasia Rooney - 08/23/2014 9:28 AM PSTLeft voicemail to schedule follow up with Danielle next week or the September. Follow up is for Ulcerative Colitis. 9: 29 AM PSTdocumented in this encounter Plan of Treatment +--------+ + + + + | Date | Type | Specialty | Care Team | Description | +--------+ + + + + | 05/29/ | Virtual | Gastroenterology | Natalie, | | | 2019 | Office | | [address] | | | | Visit | | [address] [address] | | | | | | [place] [address] | | | | | | [phone] | | | | | | | | +--------+ + + + + | 07/09/ | Virtual | Gastroenterology | Osito Bowen | | 2019 | Office | | MD [address] | | | | Visit | | [place] [address] | | | | | | [phone] | | | | | | | | +--------+ + + + + documented as of this encounter Visit Diagnoses Not on filedocumented in this encounter"
--- OUTSIDE RECORDS SUMMARY | ~2020-05-23 | XMS | Encounter Summary ---
Demographics + + + | Address | [address] | | | [place] [address] | + + + | Home Phone | | + + + | Preferred Language | Unknown | + + + | Marital Status | Single | + + + | Sabianist Affiliation | 1013 | + + + | Race | Unknown | + + + | Ethnic Group | Unknown | + + + Author + + + | Author | [facility] | | | and [place] | + + + | Organization | [facility] | | | and [place] | + + + | Address | Unknown | + + + | Phone | Unavailable | + + + Support + + + + + | Name | Relationship | Address | Phone | + + + + + | Marilyn Diallo | ECON | [place] | | | | | [address] | | + + + + + Care Team Providers + +------+ + | Care Contracting Analyst Name | Role | Phone | + +------+ + | Carlos Díaz NP | PCP | | + +------+ + Reason for Visit +--------+--------+ + | Reason | Onset | Comments | | | Date | | +--------+--------+ + | Other | 04/12/ | joint discomfort | | | 2013 | | +--------+--------+ + Encounter Details +--------+ + + + + | Date | Type | Department | Care Team | Description | +--------+ + + + + | 04/12/ | Telephone | [facility] | [facility], | Other (joint | | 2013 | | GASTROENTEROLOGY | KYRA [address] | discomfort) | | | | [address] | [address] | | | | | [address] [place] [address] | [place] | | | | | [address] | [id number] | | | | | [phone] | | | +--------+ + + + [...] this encounter Miscellaneous Notes Telephone Encounter - Elana Rodriguez RN - 04/12/2014 1:27 PM PDTPatient called in states h er back feels "stiff" states to her feels like the discomfort is worsening, denies any injur y of any sort, states taking ibuprofen a few times a day, advised due to her inflammatory zafar wel disease she should take tylenol, she can try heat or cold for it, if symptoms persist or worsen will want to go in to be seen, she verbalized understanding. She states she is jaycee melvin to have her TB test done on Wednesday and will let this office know. Did discuss with Danielle barahona nd she concurs. James kat in this encounter Plan of Treatment +--------+ + + + + | Date | Type | Specialty | Care Team | Description | +--------+ + + + + | 05/29/ | Virtual | Gastroenterology | Natalie, | | | 2019 | Office | | [address] | | | | Visit | | [address] | | | | | | [place] [address] | | | | | | [phone] | | | | | | | | +--------+ + + + + | 07/09/ | Virtual | Gastroenterology | Osito Bowen | | 2019 | Office | | MD [address] | | | | Visit | | [place] [address] | | | | | | [phone] | | | | | | | | +--------+ + + + + documented as of this encounter Visit Diagnoses Not on filedocumented in this encounter
--- OUTSIDE RECORDS SUMMARY | ~2020-05-23 | XMS | Encounter Summary ---
Demographics + + + | Address | [address] | | | [place] [address] | + + + | Home Phone | | + + + | Preferred Language | Unknown | + + + | Marital Status | Single | + + + | Samaritan Affiliation | 1013 | + + + | Race | Unknown | + + + | Ethnic Group | Unknown | + + + Author + + + | Author | [facility] | | | and [place] | + + + | Organization | [facility] | | | and [place] | + + + | Address | Unknown | + + + | Phone | Unavailable | + + + Support + + + + + | Name | Relationship | Address | Phone | + + + + + | Marilyn Diallo | ECON | [place] | | | | | [address] | | + + + + + Care Team Providers + +------+ + | Care Package Sealer Machine Name | Role | Phone | + +------+ + | Lilliana Wheeler | PCP | | | RIG MANAGER | | | + +------+ + Encounter Details +--------+ + + + + | Date | Type | Department | Care Team | Description | +--------+ + + + + | 12/07/ | Hospital | [facility] | [facility], | Ulcerative colitis | | 2014 | Encounter | [facility] | KYRA [address] | ([facility]) | | | | [address] [place] | [address] | | | | | [place], [place] | [place], [place] | | | | | [address] | [address] | | | | | [phone] | | | +--------+ + + + [...] + + documented as of this encounter Medications at Time of Discharge [...] tablet by | 90 | 2 | 11/09/19 | | | HD) [address] | mouth 3 times daily. | tablet | | 14 | 4 [...] + + documented as of this encounter Plan of Treatment +--------+ + + + + | Date | Type | Specialty | Care Team | Description | +--------+ + + + + | 05/29/ | Virtual | Gastroenterology | Natalie, | | | 2019 | Office | | [address] | | | | Visit | | [place] | | | | | | [place] [address] | | | | | | [phone] | | | | | | | | +--------+ + + + + | 07/09/ | Virtual | Gastroenterology | Osito Bowen | | | 2019 | Office | | MD Jonathan [address] | | | | Visit | | [place] [address] | | | | | | [phone] | | | | | | | | +--------+ + + + + documented as of this encounter Procedures + +--------+ + + + | Procedure Name | Priori | Date/Time | Associated Diagnosis | Comments | | | ty | | | | + +--------+ + + + | SEDIMENTATION RATE | Routin | 12/07/2013 | Ulcerative colitis | Results for this | | | e | 12:00 PM | (HCC) | procedure are in the | | | | PST | | results section. | + +--------+ + + + | CBC WITH | Routin | 12/07/2013 | Ulcerative colitis | Results for this | | DIFFERENTIAL | e | 12:00 PM | (HCC) | procedure are in the | | | | PST | | results section. | + +--------+ + + + | C-REACTIVE PROTEIN, | Routin | 12/07/2013 | Ulcerative colitis | Results for this | | HIGH SENSITIVITY | e | 12:00 PM | (HCC) | procedure are in the | | | | PST | | results section. | + +--------+ + + + documented in this encounter Results C-Reactive Protein, High Sensitivity (12/07/2013 12:00 PM PST) + + + + + + | Component | Value | Ref Range | Performed | Pathologist | | | | | At | Signature | + + + + + + | CRP, High | 1.4Comment: | 0.0 - 3.0 mg/L | [facility] | | | Sensitive | Interpretation for | | [facility] | | | | Coronary Heart Disease | | MEDICAL | | | | Risk: Low risk: | | CENTER - | | | | <1.0 Average risk: | | LABORATORY | | | | 1.0 to 3.0 High | | | | | | Risk: >3.0 Relative risk | | | | | | categories follow the | | | | | | recommendations of | | | | | | theAmerican Heart | | | | | | Association and the CDC. | | | | | | Measurement of | | | | | | thehsCRP should be done | | | | | | twice (averaging | | | | | | results), optimallytwo | | | | | | weeks apart, in | | | | | | metabolically stable | | | | | | patients. If thehsCRP | | | | | | level is >10 mg/L, the | | | | | | test should be repeated | | | | | | and thepatient examined | | | | | | for non cardiovascular | | | | | | sources ofinflammation, | | | | | | such as infection. | | | | + + + + + + + + | Specimen | + + | Blood specimen | | (specimen) | + + + + + + + | Performing | Address | City/State/Zipcode | Phone Number | | Organization | | | | + + + + + | [facility] | [address] | [place] | [phone] | | [facility] | | [address] | | | - LABORATORY | | | | + + + + + | [facility] | [address] | [place] | | | [facility] | | [address] | | | - LABORATORY | | | | + + + + + Sedimentation Rate (12/07/2013 12:00 PM PST) + +--------+ + + + | Component | Value | Ref Range | Performed | Pathologist | | | | | At | Signature | + +--------+ + + + | Erythrocyte | 45 (H) | 0 - 20 mm/hr | [facility] | | | | | | [facility] | | | [facility] | | | MEDICAL | | | on Rate | | | CENTER - | | | | | | LABORATORY | | + +--------+ + + + + + | Specimen | + + | Blood specimen | | (specimen) | + + + + + + + | Performing | Address | City/State/Zipcode | Phone Number | | Organization | | | | + + + + + | [facility] | [address] | [place], [place] | [phone] | | [facility] | | [address] | | | - LABORATORY | | | | + + + + + | [facility] | [address] | [place], [place] | | | [facility] | | [address], [facility] | | | - LABORATORY | | | | + + + + + CBC with Differential (12/07/2013 12:00 PM PST) + + + + + + | Component | Value | Ref Range | Performed | Pathologist | | | | | At | Signature | + + + + + + | White Blood | 7.2 | 4.0 - 11.0 K/uL | [facility] | | | Cells | | | [facility] | | | | | | MEDICAL | | | | | | CENTER - | | | | | | LABORATORY | | + + + + + + | Red Blood | 4.59 | 3.70 - 5.20 | [facility] | | | Cells | | M/uL | [facility] | | | | | | MEDICAL | | | | | | CENTER - | | | | | | LABORATORY | | + + + + + + | Hemoglobin | 9.8 (L) | 11.5 - 16.0 | [facility] | | | | | gm/dL | [facility] | | | | | | MEDICAL | | | | | | CENTER - | | | | | | LABORATORY | | + + + + + + | Hematocrit | 32.2 (L) | 34.0 - 47.0 % | [facility] | | | | | | [facility] | | | | | | MEDICAL | | | | | | CENTER - | | | | | | LABORATORY | | + + + + + + | MCV | 70.3 (L) | 83.0 - 101.0 fL | [facility] | | | | | | [facility] | | | | | | MEDICAL | | | | | | CENTER - | | | | | | LABORATORY | | + + + + + + | MCH | 21.5 (L) | 28.0 - 35.0 pg | [facility] | | | | | | [facility] | | | | | | MEDICAL | | | | | | CENTER - | | | | | | LABORATORY | | + + + + + + | MCHC | 30.6 (L) | 32.0 - 36.0 | [facility] | | | | | g/dL | [facility] | | | | | | MEDICAL | | | | | | CENTER - | | | | | | LABORATORY | | + + + + + + | RDW-CV | 17.5 (H) | <15.0 % | [facility] | | | | | | [facility] | | | | | | MEDICAL | | | | | | CENTER - | | | | | | LABORATORY | | + + + + + + | Platelet | 263 | 140 - 440 K/uL | [facility] | | | Count | | | [facility] | | | | | | MEDICAL | | | | | | CENTER - | | | | | | LABORATORY | | + + + + + + | % | 69.9 | 45 - 75 % | [facility] | | | Neutrophils | | | [facility] | | | | | | MEDICAL | | | | | | CENTER - | | | | | | LABORATORY | | + + + + + + | % | 17.7 (L) | 20 - 45 % | [facility] | | | Lymphocytes | | | [facility] | | | | | | MEDICAL | | | | | | CENTER - | | | | | | LABORATORY | | + + + + + + | % Monocytes | 8.3 | 4 - 12 % | [facility] | | | | | | [facility] | | | | | | MEDICAL | | | | | | CENTER - | | | | | | LABORATORY | | + + + + + + | % | 3.1 | 0 - 5 % | [facility] | | | Eosinophils | | | [facility] | | | | | | MEDICAL | | | | | | CENTER - | | | | | | LABORATORY | | + + + + + + | % Basophils | 1.0 | 0 - 1 % | [facility] | | | | | | [facility] | | | | | | MEDICAL | | | | | | CENTER - | | | | | | LABORATORY | | + + + + + + | Absolute | 5.1 | 1.5 - 6.6 K/uL | [facility] | | | Neutrophils | | | [facility] | | | | | | MEDICAL | | | | | | CENTER - | | | | | | LABORATORY | | + + + + + + | Absolute | 1.3 | 0.6 - 3.2 K/uL | [facility] | | | Lymphocytes | | | [facility] | | | | | | MEDICAL | | | | | | CENTER - | | | | | | LABORATORY | | + + + + + + | Absolute | 0.6 | 0.0 - 1.0 K/uL | [facility] | | | Monocytes | | | [facility] | | | | | | MEDICAL | | | | | | CENTER - | | | | | | LABORATORY | | + + + + + + | Absolute | 0.2 | 0.0 - 0.4 K/uL | [facility] | | | Eosinophils | | | [facility] | | | | | | MEDICAL | | | | | | CENTER - | | | | | | LABORATORY | | + + + + + + | Absolute | 0.1 | 0.0 - 0.1 K/uL | [facility] | | | Basophils | | | [facility] | | | | | | MEDICAL | | | | | | CENTER - | | | | | | LABORATORY | | + + + + + + + + | Specimen | + + | Blood specimen | | (specimen) | + + + + + + + | Performing | Address | City/State/Zipcode | Phone Number | | Organization | | | | + + + + + | [facility] | [address] | [place], [place] | [phone] | | [facility] | | [address] | | | - LABORATORY | | | | + + + + + | [facility] | [address] | [place], [place] | | | [facility] | | [address] [place] [address] | | | - LABORATORY | | | | + + + + + documented in this encounter Visit Diagnoses + + | Diagnosis | + + | Ulcerative colitis (HCC) Ulcerative colitis, unspecified | + + documented in this encounter"
--- OUTSIDE RECORDS SUMMARY | ~2020-05-23 | XMS | Encounter Summary ---
Demographics + + + | Address | [address] | | | [place] [address] | + + + | Home Phone | | + + + | Preferred Language | Unknown | + + + | Marital Status | Single | + + + | Gnosticist Affiliation | 1013 | + + + | Race | Unknown | + + + | Ethnic Group | Unknown | + + + Author + + + | Author | [facility] | | | and [place] | + + + | Organization | [facility] | | | and [place] | + + + | Address | Unknown | + + + | Phone | Unavailable | + + + Support + + + + + | Name | Relationship | Address | Phone | + + + + + | Marilyn Diallo | ECON | [place] | | | | | [address] | | + + + + + Care Team Providers + +------+ + | Care Metrology Technician Name | Role | Phone | + +------+ + | Carlos Díaz NP | PCP | | + +------+ + Reason for Visit + + + | Reason | Comments | + + + | Medication Refill | | + + + Encounter Details +--------+--------+ + + + | Date | Type | Department | Care Team | Description | +--------+--------+ + + + | 03/07/ | Refill | [facility] | Osito Bowen | Medication Refill | | 2019 | | GASTROENTEROLOGY | MD Jonathan [address] | | | | | [address] | [place] [address] | | | | | [place], [place] | [phone] | | | | | [address] | | | | | | [phone] | | | +--------+--------+ + + + Social History + +-------+ +--------+------+ | Tobacco Use | Types | Packs/Day | Years | Date | | | | | Used | | + +-------+ +--------+------+ | Never Smoker | | | | | + +-------+ +--------+------+ + +---+---+---+ | Smokeless Tobacco: | | | | | Never Used | | | | + +---+---+---+ + + +---------+ + | Alcohol Use | Drinks/Week | oz/Week | Comments | + + +---------+ + | No | | | Alcoholic | | | | | Drinks/day: seldom | + + +---------+ + + + [...] Virtual | Gastroenterology | Natalie, | | 2019 | Office | | [address] | | | | Visit | | [place] | | | | | | [place] [address] | | | | | | [phone] | | | | | | | | +--------+ + + + + | 07/09/ | Virtual | Gastroenterology | Osito Bowen | | 2019 | Office | | MD Jonathan [address] | | | | Visit | | [place] [address] | | | | | | [phone] | | | | | | | | +--------+ + + + + documented as of this encounter Visit Diagnoses Not on filedocumented in this encounter"
--- OUTSIDE RECORDS SUMMARY | ~2020-05-23 | XMS | Encounter Summary ---
Demographics + + + | Address | [address] | | | [place] [address] | + + + | Home Phone | | + + + | Preferred Language | Unknown | + + + | Marital Status | Single | + + + | Yazidism Affiliation | 1013 | + + + | Race | Unknown | + + + | Ethnic Group | Unknown | + + + Author + + + | Author | [facility] | | | and [place] | + + + | Organization | [facility] | | | and [place] | + + + | Address | Unknown | + + + | Phone | Unavailable | + + + Support + + + + + | Name | Relationship | Address | Phone | + + + + + | Marilyn Diallo | ECON | [place] | | | | | [address] | | + + + + + Care Team Providers + +------+ + | Care Machine Fancy Stitcher Name | Role | Phone | + +------+ + | Carlos Díaz NP | PCP | | + +------+ + Reason for Visit +--------+--------+ + | Reason | Onset | Comments | | | Date | | +--------+--------+ + | Other | 02/09/ | Message from Pharmacy | | | 2015 | | +--------+--------+ + Encounter Details +--------+ + + + + | Date | Type | Department | Care Team | Description | +--------+ + + + + | 02/09/ | Telephone | [facility] | [facility], | Other (Message from | | 2015 | | GASTROENTEROLOGY | KYRA [address] | Pharmacy) | | | | [address] | [address] [facility] [address] | | | | | [address] [place], [place] | [place], [place] | | | | | [address] | [id number] | | | | | [phone] | | | +--------+ + + + [...] this encounter Miscellaneous Notes Telephone Encounter - Misty Deleon - 02/10/2016 1:48 PM PDTFranklinda from [facility] called and verified that they have the same phone number as the patient as they h ave been unsuccessful in reaching the patient. The number is the same and no other number f or the patient was listed. I left a message with the patient contact, Marilyn. I asked her t o have the patient call the office back because we have a message for her from her pharmacy. Shelia stated that the patient's medication is on hold until she can get a hold of them. T he number they called from is . Closing encounter. d ocumented in this encounter Plan of Treatment +--------+ + + + + | Date | Type | Specialty | Care Team | Description | +--------+ + + + + | 05/29/ | Virtual | Gastroenterology | Natalie, | | | 2019 | Office | | [address] | | | | Visit | | [place], | | | | | | [place] [address] | | | | | | [phone] | | | | | | | | +--------+ + + + + | 07/09/ | Virtual | Gastroenterology | Osito Bowen | | | 2020 | Office | | MD Jonathan [address] | | | | Visit | | [facility] [place] [address] | | | | | | [phone] | | | | | | | | +--------+ + + + + documented as of this encounter Visit Diagnoses Not on filedocumented in this encounter"
--- OUTSIDE RECORDS SUMMARY | ~2020-05-23 | XMS | Encounter Summary ---
Demographics + + + | Address | [address] | | | [place] [address] | + + + | Home Phone [...] + + + | Author | [facility] | | | and [place] | + + + | Organization | [facility] | | | and [place] | + + + | Address | Unknown | + + + | Phone | Unavailable | + + + Support + + + + + | Name | Relationship | Address | Phone | + + + + + | Marilyn Diallo | ECON | [place] | | | | | [address] | | + + + + + Care Team Providers + +------+ + | Care Engineering And Development Director Name | Role | Phone | + +------+ + | Carlos Díaz NP | PCP | | + +------+ + Reason for Visit + + + | Reason | Comments | + + + | Follow-up | ulcerative colitis | + + + Evaluate & [...] | | | / | colitis, | [employer]ICE [employer] ANNOUNC[address] | 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 ASSISTANT [address] | | | | Gastroenterol | unspecified | [facility] | [address] | | | | ogy | Medication | [place], | [address] | | | | | Reasons/moda | [address] | [place], | | | | | /arjun | [place], | [place] [address] | | | | | Procedures | [place] [address] | Phone: | | | | | OFFICE VISIT | Phone: | [phone] | | | | | REGULAR | [phone] | Fax: | | | | | | Fax: | [phone] | | | | | | [phone] | | +--------+--------+ + + + + Encounter Details +--------+---------+ + + + | Date | Type | Department | Care Team | Description | +--------+---------+ + + + | 05/20/ | Office | [facility] | [facility], | Ulcerative colitis, | | 2015 | Visit | GASTROENTEROLOGY | [address]RA [address] | with rectal bleeding | | | | [address] | [address] | ([facility]) (Primary Dx) | | | | [address] [place], [place] | [place], [place] | | | | | [address] | [address] | | | | | [phone] | | | +--------+---------+ + + + [...] + + + | Blood Pressure | 124/84 | 05/20/2015 10:28 AM | | | | | PDT | | + + + + + | Pulse | 71 | 05/20/2015 10:28 AM | | | | | PDT | | + + + + + | Temperature | 36.7 C (98.1 F) | 05/20/2015 10:28 AM | | | | | PDT | | + + + + + | Respiratory Rate | 16 | 05/20/2015 10:28 AM | | | | | PDT | | + + + + + | Oxygen Saturation | 92% | 05/20/2015 10:28 AM | | | | | PDT | | + + + + + | Inhaled Oxygen | - | - | | | Concentration | | | | + + + + + | Weight | 92.9 kg (204 lb 14.4 | 05/20/2015 10:28 AM | | | | oz) | PDT | | + + + + + | Height | - | - | | + + + + + | Body Mass Index | 36.3 | 03/11/2015 1:51 PM | | | | | PDT | | + + + + + documented in this encounter Progress Notes Lucrecia Blank ARNP - 05/20/2015 10:51 AM PDTFormatting of this note might be differe nt from the original. Ria Hastings is a 35 y.o. female here for followup ulcerative colitis. History of present illness: Patient had been on Remicade. Was having symptoms of ulcerative colitis despite Remicade in fusions. Colonoscopy confirmed cruz colitis. Was then switched to Humira. She has been on Humira for about 2.5 months. Last dose was 3 d ays ago. She feels like she is having a very mild improvement in her symptoms. Continues to have about 5-10 BM per day. Has had blood in stool with 50% of BM despite Humi ra. Stools are soft, loose, or watery. Denies unintentional weight loss. Tapered off Prednisone about 1 month ago. She had decreased by 5 mg every 7 days. Symptoms returned about 2 weeks later. Allergies Allergen Reactions Sulfa Antibiotics Swelling "swelling of tongue" Past Medical History Diagnosis Date Ulcerative colitis (HCC) Anemia History of blood transfusion Ectopic Inflammatory arthritis (HCC) Past Surgical History Procedure Laterality Date Ectopic surgery unk Colonoscopy 12/25/2013 COLONOSCOPY ; Laterality: N/A; Surgeon: Aris Schmid MD; Location: [facility] MED[facility] PROCE DURE UNIT Colonoscopy N/A 11/27/2014 Procedure: COLONOSCOPY; Surgeon: Aris Schmid MD; Location: [facility]I T Sigmoid colon bx 11/27/14 Family History Problem Relation Age of Onset Colon polyps Mother High blood pressure Mother Diabetes Father Diabetes, IDDM Sister History Social History Marital Status: Single Spouse Name: N/A Number of Children: N/A Years of Education: N/A Occupational History Not on file. Social History Main Topics Smoking status: Former Smoker Smokeless tobacco: Never Used Alcohol Use: No Drug Use: Yes Comment: marijuana Sexual Activity: Not on file Other Topics Concern Not on file Social History Narrative Review of systems: Constitutional:Denies any fevers, chills, or unintentional weight loss. Respiratory:Denies shortness of breath, cough or wheezing. Gastrointestinal:Negative except as stated above. Cardiovascular:Denies chest pain, palpitations, or swelling to legs Physical exam: General: Alert and oriented, NAD Eyes: Sclera clear Mouth: Mucous membranes moist Abdomen: Soft, diffusely tender to palpation, non-distended, bowel tones positive x 4 quadr ants, negative Colunga's sign, negative rebound tenderness, no hepatosplenomegaly. Extremities: No clubbing or edema Skin: Warm, dry, intact. No rashes noted Neuro: Cranial nerves 2-12 grossly intact. Psych: Appropriate mood and affect. No visits with results within 1 Month(s) from this visit. Latest known visit with results is: Admission on 11/27/2014, Discharged on 11/27/2014 Component Date Value Ref Range Status POC Test, Urine 11/27/2014 Negative Final Internal QC 11/27/2014 Acceptable Final Assessment 1. Ulcerative colitis, with rectal bleeding (HCC) CBC with Differential Comprehensive Metabolic Panel Sedimentation Rate C-Reactive Protein, High Sensitivity Lactoferrin, Fecal, Qual Ova and Parasite Examination Culture, Stool Giardia Ag, EIA, Stool Clostridium difficile A and B EIA Plan: Will start Entocort. Will try to avoid systemic steroids. Hopefully a short course of local ized steroid treatment will cause improvement in inflammation and symtoms Ordered labs and stool studies to check for active inflammation and/or infection. May need to refer to tertiary center if unable to fully control symptoms. Will follow up with results. Patient is to call with any question or concerns. Any fevers, chills, chest pain, SOB or other serious symptoms patient is to call the office or go to ER . Cc: Carlos Díaz NP This note was dictated using voice recognition software. Please contact me if there are an y questions regarding its content. documented in this encounter Plan of Treatment +--------+ + + + + | Date | Type | Specialty | Care Team | Description | +--------+ + + + + | 05/29/ | Virtual | Gastroenterology | GiOlivas, | | | 2019 | Office | | [address] | | | | Visit | | [place] | | | | | | [place] [address] | | | | | | [phone] | | | | | | | | +--------+ + + + + | 07/09/ | Virtual | Gastroenterology | Osito Bowen | | | 2019 | Office | | MD Jonathan [address] | | | | Visit | | [place] [address] | | | | | | [phone] | | | | | | | | +--------+ + + + + + + +--------+ + + | Name | Type | Priori | Associated Diagnoses | Order Schedule | | | | ty | | | + + +--------+ + + | CBC with | Lab | Routin | Ulcerative colitis | 1 Occurrences | | Differential | | e | with rectal | starting 05/20/2015 | | | | | bleeding (HCC) | until 09/17/2015 | + + +--------+ + + | Comprehensive | Lab | Routin | Ulcerative colitis | 1 Occurrences | | Metabolic Panel | | e | with rectal | starting 05/20/2015 | | | | | bleeding (HCC) | until 09/17/2015 | + + +--------+ + + | Sedimentation Rate | Lab | Routin | Ulcerative colitis | 1 Occurrences | | | | e | with rectal | starting 05/20/2015 | | | | | bleeding (HCC) | until 09/17/2015 | + + +--------+ + + | C-Reactive Protein, | Lab | Routin | Ulcerative colitis | 1 Occurrences | | High Sensitivity | | e | with rectal | starting 05/20/2015 | | | | | bleeding (HCC) | until 09/17/2015 | + + +--------+ + + | Lactoferrin, Fecal, | Microbiolog | Routin | Ulcerative colitis | Expected: | | Qual | y | e | with rectal | 05/20/2015, Expires: | | | | | bleeding (HCC) | 08/18/2015 | + + +--------+ + + | Ova and Parasite | Microbiolog | Routin | Ulcerative colitis | 1 Occurrences | | Examination | y | e | with rectal | starting 05/20/2015 | | | | | bleeding (HCC) | until 09/17/2015 | + + +--------+ + + | Culture, Stool | Microbiolog | Routin | Ulcerative colitis | 1 Occurrences | | | y | e | with rectal | starting 05/20/2015 | | | | | bleeding (HCC) | until 09/17/2015 | + + +--------+ + + | Giardia Ag, EIA, | Microbiolog | Routin | Ulcerative colitis | 1 Occurrences | | Stool | y | e | with rectal | starting 05/20/2015 | | | | | bleeding (HCC) | until 09/17/2015 | + + +--------+ + + | Clostridium | Microbiolog | Routin | Ulcerative colitis | Expected: | | difficile A and B | y | e | with rectal | 05/20/2015, Expires: | | EIA | | | bleeding (HCC) | 09/17/2015 | + + +--------+ + + documented as of this encounter Visit Diagnoses + + | Diagnosis | + + | Ulcerative colitis, with rectal bleeding - Primary | + + documented in this encounter
--- OUTSIDE RECORDS SUMMARY | ~2020-05-23 | XMS | Encounter Summary ---
Demographics + + + | Address | [address] | | | [place] [address] | + + + | Home Phone | | + + + | Preferred Language | Unknown | + + + | Marital Status | Single | + + + | Quaker Affiliation | 1013 | + + + | Race | Unknown | + + + | Ethnic Group | Unknown | + + + Author + + + | Author | [facility] | | | and [place] | + + + | Organization | [facility] | | | and [place] | + + + | Address | Unknown | + + + | Phone | Unavailable | + + + Support + + + + + | Name | Relationship | Address | Phone | + + + + + | Marilyn Diallo | ECON | [place] | | | | | [address] | | + + + + + Care Team Providers + +------+ + | Care Ladder Operator Name | Role | Phone | + +------+ + | Carlos Díaz NP | PCP | | + +------+ + Reason for Visit + +--------+ + | Reason | Onset | Comments | | | Date | | + +--------+ + | Medication Refill | 06/04/ | | | | 2014 | | + +--------+ + Encounter Details +--------+--------+ + + + | Date | Type | Department | Care Team | Description | +--------+--------+ + + + | 06/04/ | Refill | [facility] | [facility], | Medication Refill | | 2014 | | GASTROENTEROLOGY | KYRA [address] | | | | | [address] [place] | [address] | | | | | [address] [place] | [place] | | | | | [address] | [address] | | | | | [phone] | | | +--------+--------+ + + + [...] 2019 | Office | | [address] | | | | Visit | | [place] | | | | | | [place] [address] | | | | | | [phone] | | | | | | | | +--------+ + + + + | 07/09/ | Virtual | Gastroenterology | Osito Bowen | | 2019 | Office | | MD Jonathan [address] | | | | Visit | | [place] [address] | | | | | | [phone] | | | | | | | | +--------+ + + + + documented as of this encounter Visit Diagnoses Not on filedocumented in this encounter"
--- OUTSIDE RECORDS SUMMARY | ~2020-05-23 | XMS | Encounter Summary ---
Demographics + + + | Address | [address] | | | [place] [address] | + + + | Home Phone | | + + + | Preferred Language | Unknown | + + + | Marital Status | Single | + + + | Mormon Affiliation | 1013 | + + + | Race | Unknown | + + + | Ethnic Group | Unknown | + + + Author + + + | Author | [facility] | | | and [place] | + + + | Organization | [facility] | | | and [place] | + + + | Address | Unknown | + + + | Phone | Unavailable | + + + Support + + + + + | Name | Relationship | Address | Phone | + + + + + | Marilyn Diallo | ECON | [place] | | | | | [address] | | + + + + + Care Team Providers + +------+ + | Care Investor Relations Analyst Name | Role | Phone | + +------+ + | Carlos Díaz NP | PCP | | + +------+ + Reason for Visit + +--------+ + | Reason | Onset | Comments | | | Date | | + +--------+ + | Medication Refill | 09/23/ | | | | 2014 | | + +--------+ + Encounter Details +--------+--------+ + + + | Date | Type | Department | Care Team | Description | +--------+--------+ + + + | 09/23/ | Refill | [facility] | [facility], | Medication Refill | | 2014 | | GASTROENTEROLOGY | KYRA Singer [address] | | | | | [address] [place] | [address] | | | | | [address] [place] | [place] | | | | | [address] | [address] | | | | | [phone] | | | +--------+--------+ + + + [...] 2019 | Office | | [address] | | | | Visit | | [place] | | | | | | [place] [address] | | | | | | [phone] | | | | | | | | +--------+ + + + + | 07/09/ | Virtual | Gastroenterology | Osito Bowen | | 2019 | Office | | MD Jonathan [address] | | | | Visit | | [place] [address] | | | | | | [phone] | | | | | | | | +--------+ + + + + documented as of this encounter Visit Diagnoses Not on filedocumented in this encounter"
--- OUTSIDE RECORDS SUMMARY | ~2020-05-23 | XMS | Encounter Summary ---
Demographics + + + | Address | [address] | | | [place] [address] | + + + | Home Phone [...] + | Author | [facility] | | | and [place] | + + + | Organization | [facility] | | | and [place] | + + + | Address | Unknown | + + + | Phone | Unavailable | + + + Support + + + + + | Name | Relationship | Address | Phone | + + + + + | Marilyn Diallo | ECON | [place] | | | | | [address] | | + + + + + Care Team Providers + +------+ + | Care Supervisor Inspection Department Name | Role | Phone | + +------+ + | Carlos Díaz NP | PCP | | + +------+ + Reason for Visit +--------+--------+ + | Reason | Onset | Comments | | | Date | | +--------+--------+ + | Other | 10/22/ | | | | 2014 | | +--------+--------+ + Encounter Details +--------+ + + + + | Date | Type | Department | Care Team | Description | +--------+ + + + + | 10/22/ | Telephone | [facility] | [place], | Other | | 2015 | | GASTROENTEROLOGY | KYRA Singer [address] | | | | | [address] | [address] | | | | | [address] [place], [place] | [place], [place] | | | | | [address] | [address] | | | | | [phone] | | | +--------+ + + + [...] Telephone Encounter - Graciela Narayanan Master of Message Systems - 10/23/2014 9:45 AM PSTLeft mess age for patient, Danielle does not want to order anything until she sees patient. Asked that kate simms keep apt. Call with any questions. elephone Encounter - Graciela Narayanan Master of Message Systems - 0 10/22/2014 3:08 PM PSTSend these orders to [facility] in [place]. elephone Encounter - Graham Narayanan Master of Arts - 10/22/2014 3:07 PM PSTPatient called and made an apt to see Danielle on 10/30/14, said she had blood in her stools. Does Danielle want to order stool studies?Electro nically signed by Graciela Narayanan Master of Arts at 10/22/2014 3:08 PM PSTdocumented in this encounter Plan of Treatment +--------+ + + + + | Date | Type | Specialty | Care Team | Description | +--------+ + + + + | 05/29/ | Virtual | Gastroenterology | Natalie, | | 2019 | Office | | [address] | | | | Visit | | [place] | | | | | | [place] [address] | | | | | | [phone] | | | | | | | | +--------+ + + + + | 07/09/ | Virtual | Gastroenterology | Osito Bowen | | 2019 | Office | | MD Yenifer Castillo | | | | Visit | | [place] [address] | | | | | | [phone] | | | | | | | | +--------+ + + + + documented as of this encounter Visit Diagnoses Not on filedocumented in this encounter"
--- OUTSIDE RECORDS SUMMARY | ~2020-05-23 | XMS | Encounter Summary ---
Demographics + + + | Address | [address] | | | [place] [address] | + + + | Home Phone | | + + + | Preferred Language | Unknown | + + + | Marital Status | Single | + + + | Islam Affiliation | 1013 | + + + | Race | Unknown | + + + | Ethnic Group | Unknown | + + + Author + + + | Author | [facility] | | | and [place] | + + + | Organization | [facility] | | | and [place] | + + + | Address | Unknown | + + + | Phone | Unavailable | + + + Support + + + + + | Name | Relationship | Address | Phone | + + + + + | Marilyn Diallo | ECON | [place] | | | | | [address] | | + + + + + Care Team Providers + +------+ + | Care Hat Band Attacher Name | Role | Phone | + +------+ + | Carlos Díaz NP | PCP | | + +------+ + Reason for Visit +--------+--------+ + | Reason | Onset | Comments | | | Date | | +--------+--------+ + | Other | 05/07/ | | | | 2014 | | +--------+--------+ + Encounter Details +--------+ + + + + | Date | Type | Department | Care Team | Description | +--------+ + + + + | 05/07/ | Telephone | [facility] | [place], | Other | | 2014 | | GASTROENTEROLOGY | [address]RA [address] | | | | | [address] | [address] | | | | | [address] [place], [place] | [place], [place] | | | | | [address] | [address] | | | | | [phone] | | | +--------+ + + + [...] Telephone Encounter - Graciela Narayanan Master of Appdra - 05/09/2015 9:19 AM PDTPato talk to Danielle regarding new authorization to see if patient needs to make an appointment to tim nue treatment. elephone Encounter - Graciela Narayanan Master of Appdra - 05/09/2015 8:29 AM PDTLef t message for patient. How is she doing since starting Humira? elephone Encounter - Rebecca Narayanan, Master of Arts - 05/07/2015 10:09 AM PDTLeft message for patient to see how she is humza charles? She has been on Humira since 03/11/15, is it helping? Her insurance [employer] is asking for an other Prior Authorization to continue this medication. documented in this encounter Plan of Treatment +--------+ + + + + | Date | Type | Specialty | Care Team | Description | +--------+ + + + + | 05/29/ | Virtual | Gastroenterology | Natalie, | | 2019 | Office | | [address] | | | | Visit | | [place], | | | | | | [place] [address] | | | | | | [phone] | | | | | | | | +--------+ + + + + | 07/09/ | Virtual | Gastroenterology | Osito Bowen | | | 2020 | Office | | MD [address] | | | | Visit | | [place] [address] | | | | | | [phone] | | | | | | | | +--------+ + + + + documented as of this encounter Visit Diagnoses Not on filedocumented in this encounter"
--- OUTSIDE RECORDS SUMMARY | ~2020-05-23 | XMS | Encounter Summary ---
Demographics + + + | Address | [address] | | | [place] [address] | + + + | Home Phone | | + + + | Preferred Language | Unknown | + + + | Marital Status | Single | + + + | Buddhist Affiliation | 1013 | + + + [...] [place] | | | | | [address] | | + + + + + Care Team Providers + +------+ + | Care Awake Overnight Counselor Name | Role | Phone | + +------+ + | Carlos Díaz NP | PCP | | + +------+ + Reason for Visit + +--------+ + | Reason | Onset | Comments | | | Date | | + +--------+ + | Medication Refill | 11/06/ | | | | 2019 | | + +--------+ + Encounter Details +--------+--------+ + + + | Date | Type | Department | Care Team | Description | +--------+--------+ + + + | 11/06/ | Refill | [facility] | Osito Bowen | Medication Refill | | 2019 | | GASTROENTEROLOGY | MD [address] | | | | | [address] | [place] [address] | | | | | [place], [place] | [phone] | | | | | [address] | | | | | | [phone] | | | +--------+--------+ + + + [...] Miscellaneous Notes Telephone Encounter - Magdi Lucio, Manufacturing Advisor - 11/08/2019 8:18 AM [facility] pharmacy requesting a refill. Medication:Prednisone Dosage: 10 mg tab Frequency: Take 1 & 1/2 tablets by mouth once daily Last office visit:01/03/2019 Last refill:09/13/2019 Next f/u:N/A Dr. Bowen, please review & refill if appropriate. Thank you, [place] ele phone Encounter - Karma Sanz 11/06/2019 4:04 PM PSTPharmacy: [facility] Lanie maribel Rollins, is calling [...] 2019 | Office | | [address] | | | | Visit | | [place], | | | | | | [place] [address] | | | | | | [phone] | | | | | | | | +--------+ + + + + | 07/09/ | Virtual | Gastroenterology | Osito Bowen | | | 2019 | Office | | MD [address] | | | | Visit | | [place] [address] | | | | | | [phone] | | | | | | | | +--------+ + + + + documented as of this encounter Visit Diagnoses Not on filedocumented in this encounter"
--- OUTSIDE RECORDS SUMMARY | ~2020-05-23 | XMS | Encounter Summary ---
Demographics + + + | Address | [address] | | | [place] [address] | + + + | Home Phone | | + + + | Preferred Language | Unknown | + + + | Marital Status | Single | + + + | Baptist Affiliation | 1013 | + + + | Race | Unknown | + + + | Ethnic Group | Unknown | + + + Author + + + | Author | [facility] | | | and [place] | + + + | Organization | [facility] | | | and [place] | + + + | Address | Unknown | + + + | Phone | Unavailable | + + + Support + + + + + | Name | Relationship | Address | Phone | + + + + + | Marilyn Diallo | ECON | [place] | | | | | [address] | | + + + + + Care Team Providers + +------+ + | Care Sql Server Consultant Name | Role | Phone | + +------+ + | Carlos Díaz NP | PCP | | + +------+ + Reason for Visit +--------+ + | Reason | Comments | +--------+ + | Other | Medication administration education | +--------+ + Evaluate & Treat (Routine) +--------+--------+ + [...] | | | / | colitis, | MEDICAL DEVICE ASSEMBLER [address] | METHOD CONSULTANT [address] | | | | Gastroenterol | unspecified | [facility] | [address] | | | | ogy | Medication | [place], | [address] | | | | | Reasons/moda | [address] | [place], | | | | | /arjun | [place], | [place] [address] | | | | | Procedures | [place] [address] | Phone: | | | | | OFFICE VISIT | Phone: | [phone] | | | | | REGULAR | [phone] | Fax: | | | | | | Fax: | [phone] | | | | | | [phone] | | +--------+--------+ + + + + Encounter Details +--------+ + + + + | Date | Type | Department | Care Team | Description | +--------+ + + + + | 03/11/ | Clinical | [facility] [place] | [facility], | Ulcerative colitis, | | 2014 | Support | GASTROENTEROLOGY | KYRA [address] | unspecified (Primary | | | | [address] [place] | [address] | Dx); Iron | | | | [address] [place] | [place] | deficiency anemia, | | | | [address] | [address] | unspecified | | | | [phone] | | | +--------+ + + + [...] + + + | Blood Pressure | 110/68 | 03/11/2015 1:51 PM | | | | | PDT | | + + + + + | Pulse | 83 | 03/11/2015 1:51 PM | | | | | PDT | | + + + + + | Temperature | 36.8 C (98.3 F) | 03/11/2015 1:51 PM | | | | | PDT | | + + + + + | Respiratory Rate | 16 | 03/11/2015 1:51 PM | | | | | PDT | | + + + + + | Oxygen Saturation | - | - | | + + + + + | Inhaled Oxygen | - | - | | | Concentration | | | | + + + + + | Weight | 94.8 kg (209 lb 1.6 | 03/11/2015 1:51 PM | | | | oz) | PDT | | + + + + + | Height | 160 cm (5' 3") | 03/11/2015 1:51 PM | | | | | PDT | | + + + + + | Body Mass Index | 37.04 | 03/11/2015 1:51 PM | | | | | PDT | | + + + + + documented in this encounter Progress Notes Tahira Avalos RN - 03/11/2015 1:34 PM PDTPatient received Humira 40 mg/0.8 mL injection pen starter kit in the mail. 6 total Humira pens received in the starter kit. Patient pres ented to the GI clinic for medication administration instruction. Per Lucrecia Blank order: Patient is to start four 40 mg SubQ injections Day 1 Two 40 mg SubQ injections Day 15 Maintenance dosing is one 40 mg SubQ injection every other week. Aydin Gold confirmed patient will receive maintenance doses in the mail. Patient was instructed using video, demo pen, pictures in demo kit, and verbally. Patient voiced understanding, no other questions at this time. documented in this encounter Plan of Treatment +--------+ + + + + | Date | Type | Specialty | Care Team | Description | +--------+ + + + + | 05/29/ | Virtual | Gastroenterology | Natalie, | | | 2019 | Office | | [address] | | | | Visit | | [place], | | | | | | [place] [address] | | | | | | [phone] | | | | | | | | +--------+ + + + + | 07/09/ | Virtual | Gastroenterology | NayaOsito pritchett | | | 2019 | Office | | MD Jonathan [address] | | | | Visit | | [place] [address] | | | | | | [phone] | | | | | | | | +--------+ + + + + documented as of this encounter Visit Diagnoses + + | Diagnosis | + + | Ulcerative colitis, unspecified - Primary | + + | Iron deficiency anemia, unspecified | + + documented in this encounter
--- OUTSIDE RECORDS SUMMARY | ~2020-05-23 | XMS | Encounter Summary ---
Demographics + + + | Address | [address] | | | [place] [address] | + + + | Home Phone | | + + + | Preferred Language | Unknown | + + + | Marital Status | Single | + + + | Protestant Affiliation | 1013 | + + + | Race | Unknown | + + + | Ethnic Group | Unknown | + + + Author + + + | Author | [facility] | | | and [place] | + + + | Organization | [facility] | | | and [place] | + + + | Address | Unknown | + + + | Phone | Unavailable | + + + Support + + + + + | Name | Relationship | Address | Phone | + + + + + | Marilyn Diallo | ECON | [place] | | | | | [address] | | + + + + + Care Team Providers + +------+ + | Care Hoist Operator Name | Role | Phone | [...] | | | / | colitis, | CUSTOMER SUPPORT PROFESSIONAL [address] | DIRECTOR OF STUDENT AFFAIRS [address] | | | | Gastroenterol | unspecified | [facility] | [address] | | | | ogy | follow up | [place], | [address] | | | | | ulcerative | [address] | [place], | | | | | colits-per | [place], | [place] [address] | | | | | lexus/pcp | [place] [address] | Phone: | | | | | arjun/mod | Phone: | [phone] | | | | | a | [phone] | Fax: | | | | | Procedures | Fax: | [phone] | | | | | OFFICE VISIT | [phone] | | | | | | REGULAR | | | +--------+--------+ + + + + Encounter Details +--------+---------+ + + + | Date | Type | Department | Care Team | Description | +--------+---------+ + + + | 01/15/ | Office | [facility] | [facility], | Ulcerative colitis, | | 2013 | Visit | GASTROENTEROLOGY | KYRA [address] | unspecified | | | | [address] [place] | [address] | complication (HCC) | | | | [address] [place], [place] | [place] | (Primary Dx) | | | | [address] | [address] | | | | | [phone] | | | +--------+---------+ + + + [...] + + documented in this encounter Progress Lucrecia Ritter ARNP - 01/15/2014 10:19 AM PDTFormatting of this note might be differe nt from the original. Ria Hastings is a 33 y.o. female here for [...] COLONOSCOPY performed by Aris Schmid MD at [facility] Family History Problem Relation [...] | 05/29/ | Virtual | Gastroenterology | [place], | | | 2019 | Office | | [address] | | | | Visit | | [place] | | | | | | [place] [address] | | | | | | [phone] | | | | | | | | +--------+ + + + + | 07/09/ | Virtual | Gastroenterology | Osito Bowen | | | 2019 | Office | | MD Jonathan [address] | | | | Visit | | [place] [address] | | | | | | [phone] | | | | | | | | +--------+ + + + + documented as of this encounter Visit Diagnoses + + | Diagnosis | + + | Ulcerative colitis, unspecified complication - Primary | + + documented in this encounter"
--- OUTSIDE RECORDS SUMMARY | ~2020-05-23 | XMS | Encounter Summary ---
Demographics + + + | Address | [address] | | | [place] [address] | + + + | Home Phone | | + + + | Preferred Language | Unknown | + + + | Marital Status | Single | + + + | Protestant Affiliation | 1013 | + + + | Race | Unknown | + + + | Ethnic Group | Unknown | + + + Author + + + | Author | [facility] | | | and [place] | + + + | Organization | [facility] | | | and [place] | + + + | Address | Unknown | + + + | Phone | Unavailable | + + + Support + + + + + | Name | Relationship | Address | Phone | + + + + + | Marilyn Diallo | ECON | [place] | | | | | [address] | | + + + + + Care Team Providers + +------+ + | Care Jet Dyeing Machine Operator Name | Role | Phone | + +------+ + | Carlos Díaz NP | PCP | | + +------+ + Reason for Visit +--------+--------+ + | Reason | Onset | Comments | | | Date | | +--------+--------+ + | Other | 12/26/ | check on patient after procedure and new medications to | | | 2013 | be ordered | +--------+--------+ + Encounter Details +--------+ + + + + | Date | Type | Department | Care Team | Description | +--------+ + + + + | | Telephone | [facility] | [facility], | Other (check on | | 2013 | | GASTROENTEROLOGY | KYRA [address] | patient after | | | | [address] [place] | [address] | procedure and new | | | | [address] [place] | [place] | medications to be | | | | [address] | [address] | ordered) | | | | [phone] | | | +--------+ + + + [...] Telephone Encounter - Elana Rodriguez RN - 12/26/2013 9:51 AM PDTPatient called in states s he is feeling ok today no blood in stools today, advised that would like patient to take asacol hd 2 tablets bid instead of 1 tid, she agreed discussed the rowasa enemas and t he suppository she states she will not be able to do the enema, will send in rx for the supp os to [facility] for her. Made her a follow up appt with jennifer on January. will call her the [facility] for labwork to be done. elephone Encounter - Elana Rodriguez RN - 12/26/2013 9:36 AM PDTCalled and left mess age for Ria to call back to our office, is recommending patient to increase asacol to 2 tablets bid, she needs to start rowasa enemas 1 every night and canasa suppos 1 q am a nd then follow up with jennifer in 3-4 weeks, discussed with jennifer she would like for patient to have bloodwork drawn cbc,crp and sed rate prior to appt. documented in this encounter Plan of Treatment [...] | | | | | | [place] [address] | | | | | | [phone] | | | | | | | | +--------+ + + + + | 07/09/ | Virtual | Gastroenterology | Osito Bowen | | | 2019 | Office | | MD Yenifer Castillo | | | | Visit | | [place] [address] | | | | | | [phone] | | | | | | | | +--------+ + + + + documented as of this encounter Visit Diagnoses Not on filedocumented in this encounter"
--- OUTSIDE RECORDS SUMMARY | ~2020-05-23 | XMS | Encounter Summary ---
Demographics + + + | Address | [address] | | | [place] [address] | + + + | Home Phone | | + + + | Preferred Language | Unknown | + + + | Marital Status | Single | + + + | Muslim Affiliation | 1013 | + + + | Race | Unknown | + + + | Ethnic Group | Unknown | + + + Author + + + | Author | [facility] | | | and [place] | + + + | Organization | [facility] | | | and [place] | + + + | Address | Unknown | + + + | Phone | Unavailable | + + + Support + + + + + | Name | Relationship | Address | Phone | + + + + + | Marilyn Diallo | ECON | [place] | | | | | [address] | | + + + + + Care Team Providers + +------+ + | Care Rubber Compounder Formulator Name | Role | Phone | + [...] | Specialty | Gastroenterol | Diagnoses | Sharmaine, | | | | Services | ogy | Ulcerative | MD Aris | | | | Required | | colitis, | [address] | | | | | unspecified | [address] | | | | | | with other | [place] | | | | | | complication | [address] | | | | | | ([facility]) | Phone: | | | | | | Procedures | [phone] | | | | | | 03/10>PEND | Fax: | | | | | | REPLY FROM | [phone] | | | | | | PROVIDER | | | +--------+ + + + + + Reason for Visit +--------+ + | Reason | Comments | +--------+ + | Other | ulcerative colitis | +--------+ + Evaluate & Treat (Routine) [...] | | | / | colitis, | [address] | EXCELLENCE SPECIALIST [address] | | | | Gastroenterol | unspecified, | [facility] | [address] | | | | ogy | without | [address], | [address] | | | | | complication | [address] | [place], | | | | | s (HCC) | [place], | [place] [address] | | | | | Follow up | [place] [address] | Phone: | | | | | per | Phone: | [phone] | | | | | Gela/self/E | [phone] | Fax: | | | | | ELOY/Jimbo | Fax: | [phone] | | | | | r | [phone] | | | | | | Procedures | | | | | | | OFFICE VISIT | | | | | | | REGULAR | | | +--------+--------+ + + + + Encounter Details +--------+---------+ + + + | Date | Type | Department | Care Team | Description | +--------+---------+ + + + | 03/10/ | Office | [facility] | [facility], | Ulcerative colitis, | | 2015 | Visit | GASTROENTEROLOGY | KYRA Singer [address] | unspecified with | | | | [address] | [address] | other complication | | | | [address] [place], [place] | [place], [place] | ([facility]) (Primary Dx) | | | | [address] | [address] | | | | | [phone] | | | +--------+---------+ + + + [...] | Blood Pressure | 110/82 | 03/10/2016 11:40 AM | | | | | PDT | | + + + + + | Pulse | 81 | 03/10/2016 11:40 AM | | | | | PDT | | + + + + + | Temperature | 36.7 C (98.1 F) | 03/10/2016 11:40 AM | | | | | PDT | | + + + + + | Respiratory Rate | 16 | 03/10/2016 11:40 AM | | | | | PDT | | + + + + + | Oxygen Saturation | 96% | 03/10/2016 11:40 AM | | | | | PDT | | + + + + + | Inhaled Oxygen | - | - | | | Concentration | | | | + + + + + | Weight | 83.5 kg (184 lb) | 03/10/2016 11:40 AM | | | | | PDT | | + + + + + | Height | - | - | | + + + + + | Body Mass Index | 32.59 | 03/11/2015 1:51 PM | | | | | PDT | | + + + + + documented in this encounter Progress Fatuma Ross RN - 03/10/2016 12:27 PM PDTRef[facility]. Will send records once approved. Skinny Lucrecia, KYRA - 03/10/2016 11:57 AM PDTFormatt ing of this note might be different from the original. Ria Hastings is a 36 y.o. female here for followup ulcerative colitis. History of present illness: She feels like Yiselira is helping some. For the first 4-5 days after injection she has 3-4 B M with the majority loose or watery. After the 5th day, she will increase back to having BM up to 10 times per day. She is not having any blood in stool. Is complaining of right knee pain. Is scheduled to see rheumatology in [place] in about 4 wee ks. Had been taking Meloxicam. Denies trauma to knee. MRI showed arthritis. Had been on Remicade. This did not help her abdominal symptoms. Last colonoscopy was 2014. Was positive for pancolitis. Still has constant pressure in rectum. Has previously been treated with Imuran and Asacol. Has required multiple treatments with p rednisone. Has also tried Canasa suppositories. LMP 02/27/2016. Notes that she is sexually active. Is not using any control. Allergies Allergen Reactions Sulfa Antibiotics Swelling "swelling of tongue" Past Medical History Diagnosis Date Ulcerative colitis (HCC) Anemia History of blood transfusion Ectopic Inflammatory arthritis (HCC) Past Surgical History Procedure Laterality Date Ectopic surgery unk Colonoscopy 12/25/2013 COLONOSCOPY ; Laterality: N/A; Surgeon: Aris Schmid MD; Location: [facility] MEDICAL PROCE DURE UNIT Colonoscopy N/A 11/27/2014 Procedure: COLONOSCOPY; Surgeon: Aris Schmid MD; Location: [facility] MEDICAL PROCEDURE UNI T Sigmoid colon bx [...] any fevers, chills, or unintentional weight loss. Notes she has inte ntionally lost weight. Respiratory:Denies shortness of breath, cough or wheezing. Gastrointestinal:Negative except as stated above. Cardiovascular:Denies chest pain, palpitations, or swelling to legs Physical exam: General: Alert and oriented, NAD Eyes: Sclera clear Mouth: Mucous membranes moist Abdomen: Soft, non-tender, non-distended, bowel tones positive x 4 quadrants, negative Murp hy's sign, negative rebound tenderness, no hepatosplenomegaly. Extremities: No clubbing or edema Skin: Warm, dry, intact. No rashes noted Neuro: Cranial nerves 2-12 grossly intact. Psych: Appropriate mood and affect. Hospital Outpatient Visit on 03/10/2016 Component Date Value Ref Range Status WBC 03/10/2016 5.8 4.0-11.0 K/uL Final RBC 03/10/2016 4.50 3.70-5.20 M/uL Final Hgb 03/10/2016 8.9* 11.5-16.0 g/dL Final Hct 03/10/2016 30.1* 34.0-47.0 % Final MCV 03/10/2016 66.9* 83.0-101.0 fL Final MCH 03/10/2016 19.7* 28.0-35.0 pg Final MCHC 03/10/2016 29.5* 32.0-36.0 g/dL Final RDW-CV 03/10/2016 18.8* <15.0 % Final Platelet Count 03/10/2016 242 140-440 K/uL Final MPV 03/10/2016 9.9 Final % Neutrophils 03/10/2016 73.3 45.0-82.0 % Final % Lymphocytes 03/10/2016 14.5* 20.0-45.0 % Final % Monocytes 03/10/2016 10.3 4.0-12.0 % Final % Eosinophils 03/10/2016 1.2 0.0-5.0 % Final % Basophils 03/10/2016 0.7 0.0-1.0 % Final Absolute Neutrophils 03/10/2016 4.20 1.80-8.50 K/uL Final Absolute Lymphocytes 03/10/2016 0.80 0.60-3.20 K/uL Final Absolute Monocytes 03/10/2016 0.60 0.00-1.00 K/uL Final Absolute Eosinophils 03/10/2016 0.10 0.00-0.40 K/uL Final Absolute Basophils 03/10/2016 0.00 0.00-0.10 K/uL Final ESR 03/10/2016 1 <20 mm/hr Final CRP, High Sensitive 03/10/2016 2.44 <=3.00 mg/L Final Assessment 1. Ulcerative colitis, unspecified with other complication (HCC) CBC with Differential Sedimentation Rate C-Reactive Protein, High Sensitivity Ref Amb [facility], Digestive Health Plan: Discussed options for decrease in ulcerative colitis symptoms. She would like to have referral to GI in [place] for additional options for her ulcerative colitis. Suspect a combination of IBS with her established IBD. IBD diagnosis: Patient was diagnosed with inflammatory bowel disease since at least 2010. Last colonoscopy was 2014. Due for repeat endoscopy procedure as needed based on symptoms. IBD therapy: Patient is currently taking Humira. Changes to medications include none. IBD flare prevention: Discussed the avoidance of NSAID, avoidance of antibiotics without cl early documented bacterial infection, and avoidance of tobacco. Bone health: Recommend baseline DEXA scans PCP. It is known that extensive steroid use is found to cause osteoporosis. Depending on the results of DEXA scan, the patient may benefit from calcium, vitamin D, or bisphosphonate supplementation, as well as examination to evalu ate improvement in bone density. Nutrition: Do to our climate in the [facility], recommend periodic vitamin D testin g I PCP. If small bowel Crohn's disease present, patient also may benefit from periodic mon itoring of B12, ferritin, folate, and zinc. Healthcare maintenance: Recommend annual flu shots. Pneumovax every 5 years to reduce the risk of severe pneumonia. Recommend annual skin examinations by PCP or dermatology. Immunosuppressive therapy: While on immunosuppressive therapy, recommend CBC every 3 months . She is due now. She is to have labs done today. Reproductive health: Recommend routine pelvic exam/Pap smears as recommended by PCP or ObGy n. she only be considered if IBD is very well controlled. Again encouraged control. Will follow up with results. Patient is [...] its content. documented in t his encounter Plan of Treatment +--------+ + + + + | Date | Type | Specialty | Care Team | Description | +--------+ + + + + | 05/29/ | Virtual | Gastroenterology | Natalie, | | | 2019 | Office | | [address] | | | | Visit | | [place] | | | | | | [place] [address] | | | | | | [phone] | | | | | | | | +--------+ + + + + | 07/09/ | Virtual | Gastroenterology | Osito Bowen | | | 2019 | Office | | MD Jonathan [address] | | | | Visit | | [place] [address] | | | | | | [phone] | | | | | | | | +--------+ + + + + + + +--------+ + + | Name | Type | Priori | Associated Diagnoses | Order Schedule | | | | ty | | | + + +--------+ + + | Ref Amb [facility], | Outpatient | Routin | Ulcerative | Expected: 03/10/2016 | | Digestive Health | Referral | e | Colitis, Unspecified | (Approximate), | | | | | With Other | Expires: 03/10/2017 | | | | | Complication (Hcc) | | + + +--------+ + + documented as of this encounter Results C-Reactive Protein, High Sensitivity (03/10/2016 12:33 PM PDT) + +-------+ + + + | Component | Value | Ref Range | Performed | Pathologist | | | | | At | Signature | + +-------+ + + + | CRP, High | 2.44 | <=3.00 mg/L | [facility] | | | Sensitive | | | [facility] | | [...] + | [facility] | [address] | [place] | [phone] | | [facility] | | [address] | | | - LABORATORY | | | | + + + + + Sedimentation Rate (03/10/2016 12:33 PM PDT) + +-------+ + + + | Component | Value | Ref Range | Performed | Pathologist | | | | | At | Signature | + +-------+ + + + | Erythrocyte | 1 | <20 mm/hr | [facility] | | | | | | [facility] | | | Sedimentati | | [...] + | [facility] | [address] | [place] | [phone] | | [facility] | | [address] | | | - LABORATORY | | | | + + + + + CBC with Differential (03/10/2016 12:33 PM PDT) + + + + + + | Component | Value | Ref Range | Performed | Pathologist | | | | | At | Signature | + + + + + + | White Blood | 5.8 | 4.0 - 11.0 K/uL | [facility] | | | Cells | | | [facility] | | | | | | MEDICAL | | | | | | CENTER - | | | | | | LABORATORY | | + + + + + + | Red Blood | 4.50 | 3.70 - 5.20 | [facility] | | | Cells | | M/uL | [facility] | | | | | | MEDICAL | | | | | | CENTER - | | | | | | LABORATORY | | + + + + + + | Hemoglobin | 8.9 (L) | 11.5 - 16.0 | [facility] | | | | | g/dL | [facility] | | | | | | MEDICAL | | | | | | CENTER - | | | | | | LABORATORY | | + + + + + + | Hematocrit | 30.1 (L) | 34.0 - 47.0 % | [facility] | | | | | | [facility] | | | | | | MEDICAL | | | | | | CENTER - | | | | | | LABORATORY | | + + + + + + | MCV | 66.9 (L) | 83.0 - 101.0 fL | [facility] | | | | | | [facility] | | | | | | MEDICAL | | | | | | CENTER - | | | | | | LABORATORY | | + + + + + + | MCH | 19.7 (L) | 28.0 - 35.0 pg | [facility] | | | | | | [facility] | | | | | | MEDICAL | | | | | | CENTER - | | | | | | LABORATORY | | + + + + + + | MCHC | 29.5 (L) | 32.0 - 36.0 | [facility] | | | | | g/dL | [facility] | | | | | | MEDICAL | | | | | | CENTER - | | | | | | LABORATORY | | + + + + + + | RDW-CV | 18.8 (H) | <15.0 % | [facility] | | | | | | [facility] | | | | | | MEDICAL | | | | | | CENTER - | | | | | | LABORATORY | | + + + + + + | Platelet | 242 | 140 - 440 K/uL | [facility] | | | Count | | | [facility] | | | | | | MEDICAL | | | | | | CENTER - | | | | | | LABORATORY | | + + + + + + | MPV | 9.9 | fL | [facility] | | | | | | [facility] | | | | | | [facility]ICAL | | | | | | CENTER - | | | | | | LABORATORY | | + + + + + + | % | 73.3 | 45.0 - 82.0 % | [facility] | | | Neutrophils | | | [facility] | | | | | | MEDICAL | | | | | | CENTER - | | | | | | LABORATORY | | + + + + + + | % | 14.5 (L) | 20.0 - 45.0 % | [facility] | | | Lymphocytes | | | [facility] | | | | | | MEDICAL | | | | | | CENTER - | | | | | | LABORATORY | | + + + + + + | % Monocytes | 10.3 | 4.0 - 12.0 % | [facility] | | | | | | [facility] | | | | | | MEDICAL | | | | | | CENTER - | | | | | | LABORATORY | | + + + + + + | % | 1.2 | 0.0 - 5.0 % | [facility] | | | Eosinophils | | | [facility] | | | | | | MEDICAL | | | | | | CENTER - | | | | | | LABORATORY | | + + + + + + | % Basophils | 0.7 | 0.0 - 1.0 % | [facility] | | | | | | [facility] | | | | | | MEDICAL | | | | | | CENTER - | | | | | | LABORATORY | | + + + + + + | Absolute | 4.20 | 1.80 - 8.50 | [facility] | | | Neutrophils | | K/uL | [facility] | | | | | | MEDICAL | | | | | | CENTER - | | | | | | LABORATORY | | + + + + + + | Absolute | 0.80 | 0.60 - 3.20 | [facility] | | | Lymphocytes | | K/uL | [facility] | | | | | | MEDICAL | | | | | | CENTER - | | | | | | LABORATORY | | + + + + + + | Absolute | 0.60 | 0.00 - 1.00 | [facility] | | | Monocytes | | K/uL | [facility] | | | | | | MEDICAL | | | | | | CENTER - | | | | | | LABORATORY | | + + + + + + | Absolute | 0.10 | 0.00 - 0.40 | [facility] | | | Eosinophils | | K/uL | [facility] | | | | | | MEDICAL | | | | | | CENTER - | | | | | | LABORATORY | | + + + + + + | Absolute | 0.00 | 0.00 - 0.10 | [facility] | [...] | + + + + + | [facility] | [address] | [place] | [phone] | | [facility] | | [address] | | | - LABORATORY | | | | + + + + + documented in this encounter Visit Diagnoses + + | Diagnosis | + + | Ulcerative colitis, unspecified with other complication (HCC) - Primary | + + documented in this encounter
--- OUTSIDE RECORDS SUMMARY | ~2020-05-23 | XMS | Encounter Summary ---
Demographics + + + | Address | [address] | | | [place] [address] | + + + | Home Phone | | + + + | Preferred Language | Unknown | + + + | Marital Status | Single | + + + | Episcopalian Affiliation | 1013 | + + + | Race | Unknown | + + + | Ethnic Group | Unknown | + + + Author + + + | Author | [facility] | | | and [place] | + + + | Organization | [facility] | | | and [place] | + + + | Address | Unknown | + + + | Phone | Unavailable | + + + Support + + + + + | Name | Relationship | Address | Phone | + + + + + | Marilyn Imani | ECON | [place] | | | | | [address] | | + + + + + Care Team Providers + +------+ + | Care Mission Manager Name | Role | Phone | + +------+ + PCP | Unavailable | + +------+ + Encounter Details +--------+ + + + + | Date | Type | Department | Care Team | Description | +--------+ + + + + | 12/04/ | Hospital | [facility] | | | | 2010 | Encounter | MED CTR GENERIC OP | | | | | | CONV DEPT [address] | | | | | | [place], | | | | | | [place] [address] | | | | | | [phone] | | | +--------+ + + + [...] | | | | | | [place] [address] | | | | | | [phone] | | | | | | | | +--------+ + + + + | 07/09/ | Virtual | Gastroenterology | Osito Bowen | | | 2019 | Office | | MD Jonathan [address] | | | | Visit | | [place] [address] | | | | | | [phone] | | | | | | | | +--------+ + + + + documented as of this encounter Visit Diagnoses Not on filedocumented in this encounter"
--- OUTSIDE RECORDS SUMMARY | ~2020-05-23 | XMS | Encounter Summary ---
Demographics + + + | Address | [address] | | | [place] [address] | + + + | Home Phone | | + + + | Preferred Language | Unknown | + + + | Marital Status | Single | + + + | Adventist Affiliation | 1013 | + + + | Race | Unknown | + + + | Ethnic Group | Unknown | + + + Author + + + | Author | [facility] | | | and [place] | + + + | Organization | [facility] | | | and [place] | + + + | Address | Unknown | + + + | Phone | Unavailable | + + + Support + + + + + | Name | Relationship | Address | Phone | + + + + + | Marilyn Diallo | ECON | [place] | | | | | [address] | | + + + + + Care Team Providers + +------+ + | Care Carrier Packer Name | Role | Phone | + [...] | | remicade-wee | Lu[place], | [address] | | | | | k 0 | SUPPLY CHAIN SPECIALIST [address] | [place], | | | | | Procedures | [address] | [place] [address] | | | | | [place] | [address] | Phone: | | | | | INFLIXIMAB | [place], | [phone] | | | | | INJECTION, | [place] [address] | Fax: | | | | | [address] [place] [address] | Phone: | [phone] | | | | | INFUSION, | [phone] | | | | | | THERAP/PROPH | Fax: | | | | | | /[place] | [phone] | | | | | | ITIAL,1ST [...] | +--------+ + + + + | 05/14/ | Hospital | [facility] | [facility], | Ulcerative colitis, | | 2013 | Encounter | MED CTR OP INFUSION | KYRA Singer [address] | with rectal bleeding | | | | [address] | [address] | ([facility]) (Primary Dx) | | | | [place], [place] | [place], [place] | | | | | [address] | [address] | | | | | [phone] | | | +--------+ + + + [...] + + + | Blood Pressure | 123/64 | 05/14/2014 5:40 PM | | | | | PDT | | + + + + + | Pulse | 64 | 05/14/2014 5:40 PM | | | | | PDT | | + + + + + | Temperature | 36.8 C (98.2 F) | 05/14/2014 5:40 PM | | | | | PDT | | + + + + + | Respiratory Rate | 16 | 05/14/2014 5:40 PM | | | | | PDT | | + + + + + | Oxygen Saturation | 97% | 05/14/2014 5:40 PM | | | | | PDT | | + + + + + | Inhaled Oxygen | - | - | | | Concentration | | | | + + + + + | Weight | 82.5 kg (181 lb 14.1 | 05/14/2014 2:36 PM | | | | oz) | PDT | | + + + + + | Height | 160 cm (5' 3") | 05/14/2014 2:36 PM | | | | | PDT | | + + + + + | Body Mass Index | 32.22 | 05/14/2014 2:36 PM | | | | | PDT [...] TABLET BY | 90 | 0 | 04/25/20 | | | DR tablet | MOUTH [...] Miscellaneous Notes Miscellaneous - ANNETTE VELASQUEZ - 05/30/2014 12:00 AM PDT documented in this encounter Plan of Treatment +--------+ + + + + | Date | Type | Specialty | Care Team | Description | +--------+ + + + + | 05/29/ | Virtual | Gastroenterology | Natalie, | | | 2019 | Office | | [address] | | | | Visit | | [place] | | | | | | [place] [address] | | | | | | [phone] | | | | | | | | +--------+ + + + + | 07/09/ | Virtual | Gastroenterology | Osito Bowen | | 2019 | Office | | MD Jonathan [address] | | | | Visit | | [place] [address] | | | | | | [phone] | | | | | | | [...] | acetaminophen (TYLENOL) tablet | Given | 05/14/20 | 650 mg | | | | 650 mg 650 mg, Oral, ONCE, Mon | | 14 2:59 | | | | | 05/14/14 at 1455, For 1 dose, | | PM PDT | | | | | Administer 30 minutes prior to | | | | | | | inFLIXimab, | | | | | | + +--------+ +--------+------+------+ +---+---+ | | | +---+---+ + +-------+ +-------+---+---+ | diphenhydrAMINE (BENADRYL) | Given | 05/14/20 | 25 mg | | | | tablet 25 mg 25 mg, Oral, ONCE, | | 14 2:58 | | | | | 05/14/14 at 1455, For 1 dose, | | PM PDT | | | | | Administer 30 minutes prior to | | | | | | | inFLIXimab, | | | | | | + +-------+ +-------+---+---+ +---+---+ | | | +---+---+ + +---------+ +--------+-------+---+ | inFLIXimab (REMICADE) 400 mg in | New Bag | 05/14/20 | 400 mg | 125 | | | sodium chloride 0.9% 250 mL | | 14 3:27 | | mL/hr | | | infusion 400 mg (5 mg/kg | | PM PDT | | | | | 82.5 kg), Intravenous, | | | | | | | Administer over 2 Hours, ONCE, | | | | | | | 05/14/14 at 1510, For 1 dose, | | | | [...] | | | | | administration. WEEK 0, | | | | | | + +---------+ +--------+-------+---+ +---+---+ | | | +---+---+ documented in this encounter
--- OUTSIDE RECORDS SUMMARY | ~2020-05-23 | XMS | Encounter Summary ---
Demographics + + + | Address | [address] | | | [place] [address] | + + + | Home Phone [...] | [place] | | | | | [address] | | + + + + + Care Team Providers + +------+ + | Care Head Tennis Coach Name | Role | Phone | + +------+ + | Carlos Díaz NP | PCP | | + +------+ + Reason for Visit + + + | Reason | Comments | + + + | Ulcerative Colitis | follow up | + + + Evaluate & Treat [...] | | | / | colitis, | CONTRACTOR GENERAL ENGINEERING [address] | VEGETABLE FARMING SUPERVISOR [address] | | | | Gastroenterol | unspecified | [facility] | [address] | | | | ogy | follow up | [address], | [address] | | | | | ulcerative | [address] | [place], | | | | | colitis/per | [place], | [place] [address] | | | | | lexus[place]mod[place] | [place] [address] | Phone: | | | | | Procedures | Phone: | [phone] | | | | | OFFICE VISIT | [phone] | Fax: | | | | | REGULAR | Fax: | [phone] | | | | | | [phone] | | +--------+--------+ + + + + Encounter Details +--------+---------+ + + + | Date | Type | Department | Care Team | Description | +--------+---------+ + + + | 08/14/ | Office | [facility] | [facility], | Ulcerative colitis, | | 2013 | Visit | GASTROENTEROLOGY | KYRA Singer [address] | with rectal bleeding | | | | [address] | [address] | ([facility]) (Primary Dx) | | | | [address] [place], [place] | [place], [place] | | | | | [address] | [address] | | | | | [phone] | | | +--------+---------+ + + + [...] + + + | Blood Pressure | 114/72 | 08/14/2014 9:26 AM | | | | | PST | | + + + + + | Pulse | 84 | 08/14/2014 9:26 AM | | | | | PST | | + + + + + | Temperature | - | - | | + + + + + | Respiratory Rate | 16 | 08/14/2014 9:26 AM | | | | | PST | | + + + + + | Oxygen Saturation | - | - | | + + + + + | Inhaled Oxygen | - | - | | | Concentration | | | | + + + + + | Weight | 86.2 kg (190 lb) | 08/14/2014 9:26 AM | | | | | PST | | + + + + + | Height | 160 cm (5' 3") | 08/14/2014 9:26 AM | | | | | PST | | + + + + + | Body Mass Index | 33.66 | 08/14/2014 9:26 AM | | | | | PST | | + + + + + documented in this encounter Progress Notes Lucrecia Blank ARNP - 08/14/2014 9:58 AM PSTFormatting of this note might be differe nt from the original. Ria Hastings is a 34 y.o. female here for followup ulcerative colitis History of present illness: Since last visit she has had some stools that are more firm. She feels like symptoms are wo rse at night. Waking up at night to have BM. About 25% of stools have blood. This seems to b e a mild improvement. Complains of lower abdominal bloating. Heartburn and epigastric pain started about 1.5 weeks ago. Has also had burning on tongue for the last 1.5 weeks. No rashes. Denies shortness of breat h. Due for next Remicade 08/27/2014. Has not been able to tell difference in symptoms after Re micade infusion. Is not losing weight due to symptoms and admits to eating well. Currently taking Prednisone 40 mg, Asacol 800 mg tid, Imuran 50 mg daily, Remicade every 8 weeks. Allergies Allergen Reactions Sulfa Antibiotics Swelling "swelling of tongue" Past Medical History Diagnosis Date Ulcerative colitis (HCC) Anemia History of blood transfusion Ectopic Inflammatory arthritis (HCC) Past Surgical History Procedure Date Ectopic surgery unk Colonoscopy 12/25/2013 COLONOSCOPY performed by Aris Schmid MD at [facility] MED[facility] PROC[facility]URE UNIT Family History [...] Cardiovascular:Denies chest pain, palpitations, or swelling to legs. Physical exam: General: Alert and oriented, NAD Eyes: Sclera clear Mouth: Mucous membranes moist Abdomen: Soft, diffusely tender to palpation, non-distended, bowel tones positive x 4 quadr ants, negative Colunga's sign, negative rebound tenderness, no hepatosplenomegaly. Extremities: No clubbing or edema Skin: Warm, dry, intact. No rashes noted Neuro: Cranial nerves 2-12 grossly intact. Psych: Appropriate mood and affect. Laboratory 08/10/2014: CMP within normal limits, with the exception of glucose 103 and AST 7 WBC 11.4 Hemoglobin 10.2 Hematocrit 33.5 Platelets 390,000 Amylase 45 Lipase 28 Assessment 1. Ulcerative colitis, with rectal bleeding (HCC) Clostridium difficile A and B EIA Giardia Ag, EIA, Stool Culture, Stool Ova and Parasite Examination Fecal leukocytes Plan: She is to complete stool studies ordered previously. Was given a prescription for Prilosec to help with heartburn. Will continue with Prednisone 40 mg daily until Imuran can reach therapeutic levels. Will follow up in 2 weeks to determine if symptoms improved. If no improvement, will then consider Remicade infusions every 6 weeks. Will follow up with results. Patient is [...] content. Electronically signed by KYRA Beatty at 08/11 9:46 PM PSTdocumented in this encounter Plan of [...] | | | | | | [place] [address] | | | | | | [phone] | | | | | | | | +--------+ + + + + | 07/09/ | Virtual | Gastroenterology | Osito Bowen | | | 2020 | Office | | MD Jonathan [address] | | | | Visit | | [place] [address] | | | | | | [phone] | | | | | | | | +--------+ + + + + + + +--------+ + + | Name | Type | Priori | Associated Diagnoses | Order Schedule | | | | ty | | | + + +--------+ + + | Clostridium | Microbiolog | Routin | Ulcerative | Expected: | | difficile A and B | y | e | colitis, with rectal | 08/14/2014, Expires: | | EIA | | | bleeding (HCC) | 12/12/2014 | + + +--------+ + + | Giardia Ag, EIA, | Microbiolog | Routin | Ulcerative | 1 Occurrences | | Stool | y | e | colitis, with rectal | starting 08/14/2014 | | | | | bleeding (HCC) | until 12/12/2014 | + + +--------+ + + | Culture, Stool | Microbiolog | Routin | Ulcerative | 1 Occurrences | | | y | e | colitis, with rectal | starting 08/14/2014 | | | | | bleeding (HCC) | until 12/12/2014 | + + +--------+ + + | Ova and Parasite | Microbiolog | Routin | Ulcerative | 1 Occurrences | | Examination | y | e | colitis, with rectal | starting 08/14/2014 | | | | | bleeding (HCC) | until 12/12/2014 | + + +--------+ + + | Fecal leukocytes | Microbiolog | Routin | Ulcerative | 1 Occurrences | | | y | e | colitis, with rectal | starting 08/14/2014 | | | | | bleeding (HCC) | until 12/12/2014 | + + +--------+ + + documented as of this encounter Visit Diagnoses + + | Diagnosis | + + | Ulcerative colitis, with rectal bleeding - Primary | + + documented in this encounter
--- OUTSIDE RECORDS SUMMARY | ~2020-05-23 | XMS | Encounter Summary ---
Demographics + + + | Address | [address] | | | [place] [address] | + + + | Home Phone | | + + + | Preferred Language | Unknown | + + + | Marital Status | Single | + + + | Buddhist Affiliation | 1013 | + + + | Race | Unknown | + + + | Ethnic Group | Unknown | + + + Author + + + | Author | [facility] | | | and [place] | + + + | Organization | [facility] | | | and [place] | + + + | Address | Unknown | + + + | Phone | Unavailable | + + + Support + + + + + | Name | Relationship | Address | Phone | + + + + + | Marilyn Diallo | ECON | [place] | | | | | [address] | | + + + + + Care Team Providers + +------+ + | Care Shoe Repairer Helper Name | Role | Phone | [...] | | remicade-wee | Lucrecia, | [address] | | | | | k 0 | FINANCIAL MANAGER [address] | [place], | | | | | Procedures | [address] | [place] [address] | | | | | [place] | [address] | Phone: | | | | | INFLIXIMAB | JESSE MOLINA, | [phone] | | | | | INJECTION, | [place] [address] | Fax: | | | | | 10 MG [place] IV | Phone: | [phone] | | | | | INFUSION, | [phone] | | | | | | THERAP/PROPH | Fax: | | | | | | /[place] | [phone] | | | | | | ITIAL,1ST [...] | +--------+ + + + + | 12/18/ | Hospital | [facility] | [place], | Other ulcerative | | 2015 | Encounter | MED CTR OP INFUSION | MAGY Singer[address] | colitis (HCC) | | | | [address] | [address] | (Primary Dx); | | | | [place], [place] | [place], [place] | Ulcerative colitis, | | | | [address] | [address] | other complication | | | | [phone] | | (HCC) | +--------+ + + + + [...] + + + | Blood Pressure | 120/65 | 12/18/2014 2:14 PM | | | | | PDT | | + + + + + | Pulse | 93 | 12/18/2014 2:14 PM | | | | | PDT | | + + + + + | Temperature | 36.6 C (97.9 F) | 12/18/2014 11:33 AM | | | | | PDT | | + + + + + | Respiratory Rate | 16 | 12/18/2014 2:14 PM | | | | | PDT | | + + + + + | Oxygen Saturation | 98% | 12/18/2014 2:14 PM | | | | | PDT | | + + + + + | Inhaled Oxygen | - | - | | | Concentration | | | | + + + + + | Weight | 90.7 kg (200 lb) | 12/18/2014 11:33 AM | | | | | PDT | | + + + + + | Height | 160 cm (5' 2.99") | 12/18/2014 11:33 AM | | | | | PDT | | + + + + + | Body Mass Index | 35.44 | 12/18/2014 11:33 AM | | | [...] + +---------+ + + | predniSONE | TAKE FOUR TABLETS BY | 120 | 0 | 12/11/19 | | | (DELTASONE) 10 mg | MOUTH ONCE DAILY | tablet | | 15 | 5 | | tablet | | [...] 2019 | Office | | [address] | | | | Visit | | [place], | | | | | | [place] [address] | | | | | | [phone] | | | | | | | | +--------+ + + + + | 07/09/ | Virtual | Gastroenterology | Osito Bowen | | | 2019 | Office | | MD Jonathan [address] | | | | Visit | | [place] [address] | | | | | | [phone] | | | | | | | | +--------+ + + + + documented as of this encounter Visit Diagnoses + + | Diagnosis | + + | Other ulcerative colitis - Primary | + + | Ulcerative colitis, other complication | + + documented in this encounter Administered Medications + +--------+ +--------+------+------+ | Medication Order | MAR | Action | Dose | Rate | Site | | | Action | Date | | | | + +--------+ +--------+------+------+ | acetaminophen (TYLENOL) tablet | Given | 12/19/19 | 650 mg | | | | 650 mg 650 mg, Oral, ONCE, Tue | | 15 11:48 | | | | | 12/18/14 at 1150, For 1 dose, | | AM PDT | | | | | Administer 30 minutes prior to | | | | | | | inFLIXimab, | | | | | | + +--------+ +--------+------+------+ +---+---+ | | | +---+---+ + +-------+ +-------+---+---+ | diphenhydrAMINE (BENADRYL) | Given | 12/19/19 | 25 mg | | | | tablet 25 mg 25 mg, Oral, ONCE, | | 15 11:48 | | | | | 12/18/14 at 1150, For 1 dose, | | AM PDT | | | | | Administer 30 minutes prior to | | | | | | | inFLIXimab, | | | | | | + +-------+ +-------+---+---+ +---+---+ | | | +---+---+ + +---------+ +--------+-------+---+ | inFLIXimab (REMICADE) 500 mg in | New Bag | 12/19/19 | 500 mg | 125 | | | sodium chloride 0.9% 250 mL | | 15 12:03 | | mL/hr | | | infusion 500 mg (rounded from | | PM PDT | | | | | 453.5 mg = 5 mg/kg | | | | | | | 90.7 kg), Intravenous, | | | | | | | Administer over 2 Hours, ONCE, | | | | | | | 12/18/14 at 1220, For 1 dose, | | | | [...]
--- OUTSIDE RECORDS SUMMARY | ~2020-05-23 | XMS | Encounter Summary ---
Demographics + + + | Address | [address] | | | [place] [address] | + + + | Home Phone | | + + + | Preferred Language | Unknown | + + + | Marital Status | Single | + + + | Buddhism Affiliation | 1013 | + + + | Race | Unknown | + + + | Ethnic Group | Unknown | + + + Author + + + | Author | [facility] | | | and [place] | + + + | Organization | [facility] | | | and [place] | + + + | Address | Unknown | + + + | Phone | Unavailable | + + + Support + + + + + | Name | Relationship | Address | Phone | + + + + + | Marilyn Diallo | ECON | [place] | | | | | [address] | | + + + + + Care Team Providers + +------+ + | Care Beef Selector Name | Role | Phone | + [...] + + | 08/01/ | Office | [facility] | Edd Mckeon, | Ulcerative colitis, | | 2013 | Visit | GASTROENTEROLOGY | [address] | unspecified (Primary | | | | [address] | [address] [place], | Dx) | | | | [address] [place], [place] | [place] [address] | | | | | [address] | [phone] | | | | | [phone] | | | +--------+---------+ + + + [...] COLONOSCOPY performed by Aris Schmid MD at [facility] MEDICAL PROCEDURE UNIT Family History Problem [...] PDT GASTROENTEROLOGY [address] [place] [address] FAX: [phone] OFFICE VISIT The patient has a significant [...] Mckeon M.D. SLIM / TRISTAN JOB #: [id number] signed by Edd Mckeon MD at 08/01/2014 [...] 2019 | Office | | [address] | | | | Visit | | [place] | | | | | | [place] [address] | | | | | | [phone] | | | | | | | | +--------+ + + + + | 07/09/ | Virtual | Gastroenterology | Osito Bowen | | | 2019 | Office | | MD Jonathan [address] | | | | Visit | | [place] [address] | | | | | | [phone] | | | | | | | [...]
--- OUTSIDE RECORDS SUMMARY | ~2020-05-23 | XMS | Encounter Summary ---
Demographics + + + | Address | [address] | | | [place] [address] | + + + | Home Phone | | + + + | Preferred Language | Unknown | + + + | Marital Status | Single | + + + | Alevism Affiliation | 1013 | + + + | Race | Unknown | + + + | Ethnic Group | Unknown | + + + Author + + + | Author | [facility] | | | and [place] | + + + | Organization | [facility] | | | and [place] | + + + | Address | Unknown | + + + | Phone | Unavailable | + + + Support + + + + + | Name | Relationship | Address | Phone | + + + + + | Marilyn Diallo | ECON | [place] | | | | | [address] | | + + + + + Care Team Providers + +------+ + | Care Workers Compensation Defense Attorney Name | Role | Phone | + +------+ + | Carlos Díaz NP | PCP | | + +------+ + Reason for Visit +--------+--------+ + | Reason | Onset | Comments | | | Date | | +--------+--------+ + | Other | 11/05/ | Reschedule procedure date | | | 2014 | | +--------+--------+ + Encounter Details +--------+ + + + + | Date | Type | Department | Care Team | Description | +--------+ + + + + | 11/05/ | Telephone | [facility] | Aris Schmid MD | Other (Reschedule | | 2014 | | GASTROENTEROLOGY | [address] | procedure date) | | | | [address] [facility] [facility] | [place], [place] | | | | | [address] [place], [place] | [address] | | | | | [address] | [phone] | | | | | [phone] | | | +--------+ + + + [...] Telephone Encounter - Tahira Avalos RN - 11/05/2014 9:18 AM PSTPatient requesting to re schedule Sharmaine Colon from 11/06/14 to 11/20/14 with 0900 check in. Message given to Grace to update procedure date and time. elephone Encounter - Adriana Wallace - 11/05/2014 8:3 0 AM PSTPatient called to reschedule her colonoscopy with Dr Schmid tomorrow. Please call dorina perkins to reschedule. documentrey kat in this encounter Plan of Treatment +--------+ + + + + | Date | Type | Specialty | Care Team | Description | +--------+ + + + + | 05/29/ | Virtual | Gastroenterology | Natalie, | | 2019 | Office | | [address] | | | | Visit | | [place] | | | | | | [place] [address] | | | | | | [phone] | | | | | | | | +--------+ + + + + | 07/09/ | Virtual | Gastroenterology | Osito Bowen | | 2019 | Office | | MD Jonathan [address] | | | | Visit | | [place] [address] | | | | | | [phone] | | | | | | | | +--------+ + + + + documented as of this encounter Visit Diagnoses Not on filedocumented in this encounter"
--- OUTSIDE RECORDS SUMMARY | ~2020-05-23 | XMS | Encounter Summary ---
Demographics + + + | Address | [address] | | | [place] [address] | + + + | Home Phone [...] + + + | Author | [facility] | | | and [place] | + + + | Organization | [facility] | | | and [place] | + + + | Address | Unknown | + + + | Phone | Unavailable | + + + Support + + + + + | Name | Relationship | Address | Phone | + + + + + | Marilyn Diallo | ECON | [place] | | | | | [address] | | + + + + + Care Team Providers + +------+ + | Care Tyre Builder Name | Role | Phone | + +------+ + | Carlos Díaz NP | PCP | | + +------+ + Reason for Visit +--------+--------+ + | Reason | Onset | Comments | | | Date | | +--------+--------+ + | Other | 08/08/ | reminder to have bloodwork drawn | | | 2013 | | +--------+--------+ + Encounter Details +--------+ + + + + | Date | Type | Department | Care Team | Description | +--------+ + + + + | 08/08/ | Telephone | [facility] | Edd Hurst, | Other (reminder to | | 2013 | | GASTROENTEROLOGY | MD [address] | have bloodwork | | | | [address] | [address] [place], | drawn) | | | | [address] [place] | [place] [address] | | | | | [address] | [phone] | | | | | [phone] | | | +--------+ + + + [...] Telephone Encounter - Elana Rodriguez RN - 08/08/2014 2:35 PM PDTCalled and left message fo r patient reminding her to have bloodwork drawn [facility] [place] documented in th is encounter Plan of Treatment +--------+ + + + + | Date | Type | Specialty | Care Team | Description | +--------+ + + + + | 05/29/ | Virtual | Gastroenterology | Natalie, | | | 2019 | Office | | [address] | | | | Visit | | [place] | | | | | | [place] [address] | | | | | | [phone] | | | | | | | | +--------+ + + + + | 07/09/ | Virtual | Gastroenterology | Osito Bowen | | 2019 | Office | | MD Jonathan [address] | | | | Visit | | [place] [address] | | | | | | [phone] | | | | | | | | +--------+ + + + + documented as of this encounter Visit Diagnoses Not on filedocumented in this encounter"
--- OUTSIDE RECORDS SUMMARY | ~2020-05-23 | XMS | Encounter Summary ---
Demographics + + + | Address | [address] | | | [place] [address] | + + + | Home Phone [...] + + + | Author | [facility] | | | and [place] | + + + | Organization | [facility] | | | and [place] | + + + | Address | Unknown | + + + | Phone | Unavailable | + + + Support + + + + + | Name | Relationship | Address | Phone | + + + + + | Marilyn Diallo | ECON | [place] | | | | | [address] | | + + + + + Care Team Providers + +------+ + | Care Marketing Operations Assistant Name | Role | Phone | + +------+ + | Carlos Díaz NP | PCP | | + +------+ + Reason for Visit +--------+--------+ + | Reason | Onset | Comments | | | Date | | +--------+--------+ + | Other | 12/17/ | | | | 2014 | | +--------+--------+ + Encounter Details +--------+ + + + + | Date | Type | Department | Care Team | Description | +--------+ + + + + | 12/17/ | Telephone | [facility] | [place], | Other | | 2015 | | GASTROENTEROLOGY | KYRA Singer [address] | | | | | [address] | [address] | | | | | [address] [place], [place] | [place], [place] | | | | | [address] | [address] | | | | | [phone] | | | +--------+ + + + [...] Telephone Encounter - Graciela Narayanan Master of [employer] - 12/17/2014 1:31 PM Katy gambino rned call. Told her Brie wanted to see her before infusion but was unable to reach her. Per Brie she is to go ahead with infusion and we will see her December 24 for apt. Patient verbaliz ed understanding. 1 :33 PM PDTdocumented in this encounter Plan of Treatment +--------+ + + + + | Date | Type | Specialty | Care Team | Description | +--------+ + + + + | 05/29/ | Virtual | Gastroenterology | Natalie, | | 2019 | Office | | [address] | | | | Visit | | [place] | | | | | | [place] [address] | | | | | | [phone] | | | | | | | | +--------+ + + + + | 07/09/ | Virtual | Gastroenterology | Osito Bowen | | 2019 | Office | | MD Jonathan [address] | | | | Visit | | [place] [address] | | | | | | [phone] | | | | | | | | +--------+ + + + + documented as of this encounter Visit Diagnoses Not on filedocumented in this encounter"
--- OUTSIDE RECORDS SUMMARY | ~2020-05-23 | XMS | Encounter Summary ---
Demographics + + + | Address | [address] | | | [place] [address] | + + + | Home Phone [...] | [place] | | | | | [address] | | + + + + + Care Team Providers + +------+ + | Care Laser Beam Cutter Name | Role | Phone | [...] + + | 06/26/ | Telephone | [facility] | [facility], | Appointment | | 2012 | | GASTROENTEROLOGY | KYRA [address] | | | | | [address] [place] | [address] | | | | | [address] [place], [place] | [place], [place] | | | | | [address] | [address] | | | | | [phone] | | | +--------+ + + + [...] | | | | | | [place] [address] | | | | | | [phone] | | | | | | | | +--------+ + + + + | 07/09/ | Virtual | Gastroenterology | Osito Bowen | | | 2019 | Office | | MD Yenifer Castillo | | | | Visit | | [place] [address] | | | | | | [phone] | | | | | | | | +--------+ + + + + documented as of this encounter Visit Diagnoses Not on filedocumented in this encounter"
--- OUTSIDE RECORDS SUMMARY | ~2020-05-23 | XMS | Encounter Summary ---
Demographics + + + | Address | [address] | | | [place] [address] | + + + | Home Phone | | + + + | Preferred Language | Unknown | + + + | Marital Status | Single | + + + | Congregation Affiliation | 1013 | + + + | Race | Unknown | + + + | Ethnic Group | Unknown | + + + Author + + + | Author | [facility] | | | and [place] | + + + | Organization | [facility] | | | and [place] | + + + | Address | Unknown | + + + | Phone | Unavailable | + + + Support + + + + + | Name | Relationship | Address | Phone | + + + + + | Marilyn Diallo | ECON | [place] | | | | | [address] | | + + + + + Care Team Providers + +------+ + | Care Sponge Fisherman Name | Role | Phone | + [...] + + | 11/26/ | Telephone | [facility] | Aris Schmid MD | Other (bowel prep | | 2015 | | GASTROENTEROLOGY | [address] | question) | | | | [address] [facility] | [place], [place] | | | | | [address] [place] | [address] | | | | | [address] | [phone] | | | | | [phone] | | | +--------+ + + + [...] prep questions. Please call her back LOU. dojesika kat in this encounter Plan of Treatment +--------+ + + + + | Date | Type | Specialty | Care Team | Description | +--------+ + + + + | 05/29/ | Virtual | Gastroenterology | Natalie, | | | 2019 | Office | | [address] | | | | Visit | | [place] | | | | | | [place] [address] | | | | | | [phone] | | | | | | | | +--------+ + + + + | 07/09/ | Virtual | Gastroenterology | Osiot Bowen | | 2019 | Office | | MD Jonathan [address] | | | | Visit | | [place] [address] | | | | | | [phone] | | | | | | | | +--------+ + + + + documented as of this encounter Visit Diagnoses Not on filedocumented in this encounter"
--- OUTSIDE RECORDS SUMMARY | ~2020-05-23 | XMS | Encounter Summary ---
Demographics + + + | Address | [address] | | | [place] [address] | + + + | Home Phone [...] [place] | | | | | [address] | | + + + + + Care Team Providers + +------+ + | Care Logistics Clerk Name | Role | Phone | + +------+ + | Carlos Díaz NP | PCP | | + +------+ + Reason for Visit + +--------+ + | Reason | Onset | Comments | | | Date | | + +--------+ + | Appointment | 05/09/ | | | | 2017 | | + +--------+ + Encounter Details +--------+ + + + + | Date | Type | Department | Care Team | Description | +--------+ + + + + | 05/09/ | Telephone | [facility] | [facility] | | 2018 | | GASTROENTEROLOGY | KYRA Singer [address] | | | | | [address] [place] | [address] | | | | | [address] [place], [place] | [place], [place] | | | | | [address] | [address] | | | | | [phone] | | | +--------+ + + + [...] Miscellaneous Notes Telephone Encounter - Graciela Narayanan CMA - 05/11/2018 8:51 AM PDTLeft message for kate simms that Danielle thinks she should continue her care in [place] due to her non compliance wi th our office. ele phone Encounter - Molly Ardon - 05/09/2018 2:16 PM PDTPatient called back, she was wa lalitha to know if Danielle would start seeing her again, she has been hospitalized a couple times here recently, and she knows that Danielle knows her body and her treatment history. She said s he was referred to [facility] but feels better about coming here, told her we would have to c onsult with Danielle when she gets back into office, she verbalized understanding. Javierall y signed by Molly Velez Emmietez at 05/09/2018 2:22 PM PDTdocumented in this encounter Plan of Treatment +--------+ + + + + | Date | Type | Specialty | Care Team | Description | +--------+ + + + + | 05/29/ | Virtual | Gastroenterology | Natalie, | | | 2019 | Office | | [address] | | | | Visit | | [place] | | | | | | [place] [address] | | | | | | [phone] | | | | | | | | +--------+ + + + + | 07/09/ | Virtual | Gastroenterology | Osito Bowen | | 2019 | Office | | MD Jonathan [address] | | | | Visit | | [place] [address] | | | | | | [phone] | | | | | | | | +--------+ + + + + documented as of this encounter Visit Diagnoses Not on filedocumented in this encounter"
--- OUTSIDE RECORDS SUMMARY | ~2020-05-23 | XMS | Encounter Summary ---
Demographics + + + | Address | [address] | | | [place] [address] | + + + | Home Phone | | + + + | Preferred Language | Unknown | + + + | Marital Status | Single | + + + | Christian Affiliation | 1013 | + + + [...] | [place] | | | | | [address] | | + + + + + Care Team Providers + +------+ + | Care Hog Worker Name | Role | Phone | + +------+ + | Carlos Díaz NP | PCP | | + +------+ + Encounter Details +--------+ + + + + | Date | Type | Department | Care Team | Description | +--------+ + + + + | 05/26/ | Orders Only | [facility] | Natalie, | Ulcerative colitis | | 2019 | | GASTROENTEROLOGY | [address] | with rectal bleeding | | | | [address] | [address] [facility], | (HCC); Ulcerative | | | | [facility], [place] | [place] [address] | colitis, unspecified | | | | [address] | [phone] | with unspecified | | | | [phone] | | complications (HCC) | +--------+ + [...] [place] | | | | | | [place] [address] | | | | | | [phone] | | | | | | | | +--------+ + + + + | 07/09/ | Virtual | Gastroenterology | Osito Bowen | | | 2019 | Office | | MD Jonathan [address] | | | | Visit | | [place] [address] | | | | | | [phone] | | | | | | | [...]
--- OUTSIDE RECORDS SUMMARY | ~2020-05-23 | XMS | Encounter Summary ---
Demographics + + + | Address | [address] | | | [place] [address] | + + + | Home Phone | | + + + | Preferred Language | Unknown | + + + | Marital Status | Single | + + + | Yazidi Affiliation | 1013 | + + + | Race | Unknown | + + + | Ethnic Group | Unknown | + + + Author + + + | Author | [facility] | | | and [place] | + + + | Organization | [facility] | | | and [place] | + + + | Address | Unknown | + + + | Phone | Unavailable | + + + Support + + + + + | Name | Relationship | Address | Phone | + + + + + | Marilyn Diallo | ECON | [place] | | | | | [address] | | + + + + + Care Team Providers + +------+ + | Care Brass Chaser Name | Role | Phone | + [...] | | colitis | Lucrecia, | [address] | | | | | Procedures | SMALL [employer]ODUCTS II ASSEMBLER [address] | [place], | | | | | [place] | [address] | [place] [address] | | | | | INFUSION, | [address] | Phone: | | | | | THERAP/PROPH | [place], | [phone] | | | | | /[place] | [place] [address] | Fax: | | | | | ITIAL,1ST | Phone: | [phone] | | | | | HOUR [place] | [phone] | | | | | | INFLIXIMAB | Fax: | | | | | | INJECTION, | [phone] | | | | | | 10 MG WSM | | | | | | | OP INF | | | | | | | REMICADE | | | +--------+--------+ + + + + Encounter Details +--------+ + + + + | Date | Type | Department | Care Team | Description | +--------+ + + + + | 08/27/ | Hospital | [facility] | [facility], | Ulcerative colitis, | | 2014 | Encounter | MED CTR OP INFUSION | MAGY Singer[address] | with rectal bleeding | | | | [address] | [address] | ([facility]) (Primary Dx) | | | | [place], [place] | [place], [place] | | | | | [address] | [address] | | | | | [phone] | | | +--------+ + + + [...] + + + | Blood Pressure | 108/57 | 08/27/2014 2:23 PM | | | | | PST | | + + + + + | Pulse | 82 | 08/27/2014 2:23 PM | | | | | PST | | + + + + + | Temperature | 36.8 C (98.2 F) | 08/27/2014 2:23 PM | | | | | PST | | + + + + + | Respiratory Rate | 16 | 08/27/2014 12:11 PM | | | | | PST | | + + + + + | Oxygen Saturation | 97% | 08/27/2014 2:23 PM | | | | | PST | | + + + + + | Inhaled Oxygen | - | - | | | Concentration | | | | + + + + + | Weight | 86.2 kg (190 lb) | 08/27/2014 11:30 AM | | | | | [...] Miscellaneous Notes Miscellaneous - ANNETTE VELASQUEZ - 08/30/2014 12:00 AM PST documented in this encounter Plan of Treatment +--------+ + + + + | Date | Type | Specialty | Care Team | Description | +--------+ + + + + | 05/29/ | Virtual | Gastroenterology | Natalie, | | | 2019 | Office | | [address] | | | | Visit | | [place], | | | | | | [place] [address] | | | | | | [phone] | | | | | | | | +--------+ + + + + | 07/09/ | Virtual | Gastroenterology | Osito Bowen | | | 2019 | Office | | MD Jonathan [address] | | | | Visit | | [place] [address] | | | | | | [phone] | | | | | | | | +--------+ + + + + documented as of this encounter Visit Diagnoses + + | Diagnosis | + + | Ulcerative colitis, with rectal bleeding - Primary | + + documented in this encounter Administered Medications + +--------+ +-------+------+------+ | Medication Order | MAR | Action | Dose | Rate | Site | | | Action | Date | | | | + +--------+ +-------+------+------+ | diphenhydrAMINE (BENADRYL) | Given | 08/27/20 | 25 mg | | | | tablet 25 mg 25 mg, Oral, ONCE, | | 14 11:47 | | | | | 08/27/14 at 1150, For 1 dose, | | AM PST | | | | | Administer 30 minutes prior to | | | | | | | inFLIXimab, | | | | | | + +--------+ +-------+------+------+ +---+---+ | | | +---+---+ + +---------+ +--------+-------+---+ | inFLIXimab (REMICADE) 400 mg in | New Bag | 08/27/20 | 400 mg | 125 | | | sodium chloride 0.9% 250 mL | | 14 12:08 | | mL/hr | | | infusion 400 mg (5 mg/kg | | PM PST | | | | | 86.2 kg), Intravenous, | | | | | | | Administer over 2 Hours, ONCE, | | | | | | | 08/27/14 at 1205, For 1 dose, | | | | | | | Rate for first infusion: 10 | | | | | | | mL/hr for 15 min, then 20 mL/hr | | | | | | | for 15 min, then 40 mL/hr for 15 | | | | | | | min, then 80 mL/hr for 15 min, | | | | | | | then 150 mL/hr for 15 min, then | | | | | | | 250 mL/hr. Use 0.22 micron filter | | | | | | | for administration. | | | | | | | MAINTENANCE, | | | | | | + +---------+ +--------+-------+---+ +---+---+ | | | +---+---+ documented in this encounter"
--- OUTSIDE RECORDS SUMMARY | ~2020-05-23 | XMS | Clinical Summary ---
Demographics + + + | Address | [address] | | | [place] [address] | + + + | Home Phone | | + + + | Preferred Language | Unknown | + + + | Marital Status | Unknown | + + + | Zoroastrian Affiliation | Unknown | + + + | Race | Unknown | + + + | Ethnic Group | Unknown | + + + Author + + + | Author | [facility] | + + + | Organization | [facility] | + + + | Address | Unknown | + + + | Phone | Unavailable | + + + Care Team Providers + +------+ + | Care Metal Box Maker Name | Role | Phone | + +------+ + PCP | Unavailable | + +------+ + Source Comments ION is fully live on both [facility] and [facility] InPatient.[facility] Allergies Not on File Medications Not on file Active Problems Not on file Social History + +-------+ +--------+------+ | Tobacco [...] | + + Last Filed Vital Signs Not on file Plan of Treatment + + + + + | Health Maintenance | Due Date | Last Done | Comments | + + + + + | Influenza (Flu) | | | | | vaccination (#1) | 9 | | | + + + + + | Pneumococcal | Aged Out | | No longer eligible | | vaccination | | | based on patient's | | | | | age to complete this | | | | | topic | + + + + + Results Not on filefrom Last 3 Months"
--- OUTSIDE RECORDS SUMMARY | ~2020-05-23 | XMS | Encounter Summary ---
Demographics + + + | Address | [address] | | | [place] [address] | + + + | Home Phone | | + + + | Preferred Language | Unknown | + + + | Marital Status | Single | + + + | Moravian Affiliation | 1013 | + + + | Race | Unknown | + + + | Ethnic Group | Unknown | + + + Author + + + | Author | [facility] | | | and [place] | + + + | Organization | [facility] | | | and [place] | + + + | Address | Unknown | + + + | Phone | Unavailable | + + + Support + + + + + | Name | Relationship | Address | Phone | + + + + + | Marilyn Diallo | ECON | [place] | | | | | [address] | | + + + + + Care Team Providers + +------+ + | Care Dental Appliance Repairer Name | Role | Phone | + +------+ + | Carlos Díaz NP | PCP | | + +------+ + Reason for Visit + +--------+ + | Reason | Onset | Comments | | | Date | | + +--------+ + | Medication Refill | 03/30/ | | | | 2015 | | + +--------+ + Encounter Details +--------+--------+ + + + | Date | Type | Department | Care Team | Description | +--------+--------+ + + + | 03/30/ | Refill | [facility] | [facility], | Medication Refill | | 2015 | | GASTROENTEROLOGY | KYRA Singer [address] | | | | | [address] [place] | [address] | | | | | [address] [place] | [place] | | | | | [address] | [address] | | | | | [phone] | | | +--------+--------+ + + + [...] this encounter Miscellaneous Notes Telephone Encounter - Fatuma Mclaughlin RN - 04/01/2016 11:20 AM PDTRefill for [facility] ed; 03/11 office note from Danielle barone to continue current regimen. On 03/18 all records were faxed to [facility] and they contacted patient for appointment. documented in this enc ounter Plan of [...] | | | | | | [place] [address] | | | | | | [phone] | | | | | | | | +--------+ + + + + | 07/09/ | Virtual | Gastroenterology | Osito Bowen | | 2019 | Office | | MD Jonathan [address] | | | | Visit | | [place] [address] | | | | | | [phone] | | | | | | | | +--------+ + + + + documented as of this encounter Visit Diagnoses Not on filedocumented in this encounter"
--- OUTSIDE RECORDS SUMMARY | ~2020-05-23 | XMS | Encounter Summary ---
Demographics + + + | Address | [address] | | | [place] [address] | + + + | Home Phone | | + + + | Preferred Language | Unknown | + + + | Marital Status | Single | + + + | Religion Affiliation | 1013 | + + + | Race | Unknown | + + + | Ethnic Group | Unknown | + + + Author + + + | Author | [facility] | | | and [place] | + + + | Organization | [facility] | | | and [place] | + + + | Address | Unknown | + + + | Phone | Unavailable | + + + Support + + + + + | Name | Relationship | Address | Phone | + + + + + | Marilyn Diallo | ECON | [place] | | | | | [address] | | + + + + + Care Team Providers + +------+ + | Care Plant Floor Automation Manager Name | Role | Phone | + +------+ + | Carlos Díaz NP | PCP | | + +------+ + Reason for Visit + +--------+ + | Reason | Onset | Comments | | | Date | | + +--------+ + | Appointment | 11/27/ | | | | 2014 | | + +--------+ + Encounter Details +--------+ + + + + | Date | Type | Department | Care Team | Description | +--------+ + + + + | 11/27/ | Telephone | [facility] | [facility], | [facility] | | 2014 | | GASTROENTEROLOGY | KYRA Singer [address] | | | | | [address] [place] | [address] | | | | | [address] [place], [place] | [place], [place] | | | | | [address] | [address] | | | | | [phone] | | | +--------+ + + + [...] Notes Telephone Encounter - Debbie Pinon - 11/27/2014 1:15 PM PSTAppt made with Danielle for a foll ow up. elephone Encounter - Litzy Costa - 11/27/2014 12:01 PM PSTLeft message for patient to call back and schedule when she is ready. elep jagruti Encounter - Litzy Costa - 11/27/2014 12:00 PM PST----- Message from Tahira Avalos RN sent at 11/27/2014 11:46 PST ----- Regarding: Please schedule F/U with Danielle Mcghee and Debbie, Per Danielle and Dr. Schmid, please schedule the following patient for a follow up appointment w radha Santos before December 18, 2014. Ria Hastings [address] Danielle will order labs at the time of that appointment. Thank you! documented in this encounter Plan of Treatment [...] | | | | | | [place] [address] | | | | | | [phone] | | | | | | | | +--------+ + + + + | 07/09/ | Virtual | Gastroenterology | Osito Bowen | | | 2019 | Office | | MD Jonathan [address] | | | | Visit | | [place] [address] | | | | | | [phone] | | | | | | | | +--------+ + + + + documented as of this encounter Visit Diagnoses Not on filedocumented in this encounter"
--- OUTSIDE RECORDS SUMMARY | ~2020-05-23 | XMS | Encounter Summary ---
Demographics + + + | Address | [address] | | | [place] [address] | + + + | Home Phone [...] | [place] | | | | | [address] | | + + + + + Care Team Providers + +------+ + | Care Digital Strategist Name | Role | Phone | + +------+ + | No, Physician | PCP | Unavailable | + +------+ + Reason for Visit + +--------+ + | Reason | Onset | Comments | | | Date | | + +--------+ + | Appointment | 06/16/ | | | | 2012 | | + +--------+ + Encounter Details +--------+ + + + + | Date | Type | Department | Care Team | Description | +--------+ + + + + | 06/16/ | Telephone | [facility] | [facility], | Appointment | | 2012 | | GASTROENTEROLOGY | KYRA Singer [address] | | | | | [address] [place] | [address] | | | | | [address] [place], [place] | [place], [place] | | | | | [address] | [address] | | | | | [phone] | | | +--------+ + + + [...] Notes Telephone Encounter - Kasia Rooney - 06/28/2013 3:33 PM PDTPatient was scheduled for 06/29 and rescheduled to 07/06/16. elephone Encounter - Lucrecia Blank ARNP - 06/26/2013 11:08 AM PDTPlease offered p atient appointment sooner if we have any cancellations. Thank you elephone Encounter - Graciela Narayanan - 06/19/2013 3:40 PM PDTPatient was admitted to hospital, please see paperwork on Ra murdock k. elephone Encounter - Kasia Rooney - 06/16/2013 11:56 AM PDTPatient is calling because she is having an ulcerati ve colitis flare and is out of asacol and predinsone and the pharmacy will not refill these because the prescriptions are more than 12 months old. She will call and have them send a re fill request. Patient scheduled with Danielle on 06/29/13. Please call documented in this encounter Plan of Treatment +--------+ + + + + | Date | Type | Specialty | Care Team | Description | +--------+ + + + + | 05/29/ | Virtual | Gastroenterology | Natalie, | | 2019 | Office | | [address] | | | | Visit | | [place] | | | | | | [place] [address] | | | | | | [phone] | | | | | | | | +--------+ + + + + | 07/09/ | Virtual | Gastroenterology | Osito Bowen | | | 2019 | Office | | MD Jonathan [address] | | | | Visit | | [place] [address] | | | | | | [phone] | | | | | | | | +--------+ + + + + documented as of this encounter Visit Diagnoses Not on filedocumented in this encounter"
--- OUTSIDE RECORDS SUMMARY | ~2020-05-23 | XMS | Encounter Summary ---
Demographics + + + | Address | [address] | | | [place] [address] | + + + | Home Phone | | + + + | Preferred Language | Unknown | + + + | Marital Status | Single | + + + | Amish Affiliation | 1013 | + + + | Race | Unknown | + + + | Ethnic Group | Unknown | + + + Author + + + | Author | [facility] | | | and [place] | + + + | Organization | [facility] | | | and [place] | + + + | Address | Unknown | + + + | Phone | Unavailable | + + + Support + + + + + | Name | Relationship | Address | Phone | + + + + + | Marilyn Diallo | ECON | [place] | | | | | [address] | | + + + + + Care Team Providers + +------+ + | Care Pcmh Specialist Name | Role | Phone | [...] + + | 11/27/ | Hospital | [facility] | Aris Schmid MD | Diarrhea (Primary | | 2015 | Encounter | MED CTR OR PRE OP | [address] | Dx); Inflammatory | | | | [address] [place] | [place], [place] | bowel disease | | | | [place] [address] | [address] | | | | | [phone] | [phone] | | | | | | | [...] the physician who did your procedure at [phone] if you have any questions or experience any of the following: ? Increasing abdominal pain, nausea, or vomiting. ? Chills and fever over 101F. ? New abdominal swelling or bloating. ? Signs of rectal bleeding (black or red stool. If you cannot get a hold of your physician, then call the [facility] [phone] . If necessary, report to the Emergency Department at [facility]. Quit smoking: If you smoke or have [...] Aris Schmid MD at 11/27/2014 11:10 AM Renetta Lucrecia, WASHATERIA ATTENDANT - 10/30 10:33 AM PST Ria Hastings [...] Laterality: N/A; Surgeon: Aris Schmid MD; [facility] Family History Problem Relation Age of Onset [...] | | | | | | [place] [address] | | | | | | [phone] | | | | | | | | +--------+ + + + + | 07/09/ | Virtual | Gastroenterology | Osito Bowen | | | 2020 | Office | | MD Jonathan [address] | | | | Visit | | [place] [address] | | | | | | [phone] | | | | | | | [...] comorbidity) | | | | | | ([facility]) | | + +--------+ + + + [...] 11/27/2014 | [facility]OVATION | | 11:01 AMMRN: [id number] #: [id number] of : | | | 1980Admit Type: AmbulatoryAge: 34Room: [facility] 02Gender: FemaleNote | | | Status: FinalizedAttending [...] the nurse | | | and the photographic technician in the pre-procedure area in the endoscopy [...] AMScope | | | Out: 11:32:52 AM [facility], [address] | | | [place] [address] | | | - Continue present medications. [...] |Scope Out: 11:32:52 AM | | | [facility], [address] [facility], [place], [place] | | | [address] | | + + -+ + +---------+ [...] | + + + + + | [facility] | [address] [facility] | [place], [place] | [phone] | | [facility] | | [address] | | | LABORATORY | | | [...]
--- OUTSIDE RECORDS SUMMARY | ~2020-05-23 | XMS | Encounter Summary ---
Demographics + + + | Address | [address] | | | [place] [address] | + + + | Home Phone [...] + + + | Author | [facility] | | | and [place] | + + + | Organization | [facility] | [...] [place] | | | | | [address] | | + + + + + Care Team Providers + +------+ + | Care Risk Lead Name | Role | Phone | + +------+ + | Carlos Díaz NP | PCP | | + +------+ + Encounter Details +--------+ + + + + | Date | Type | Department | Care Team | Description | +--------+ + + + + | 11/19/ | Abstract | [facility] [place] | [facility], | | | 2014 | | GASTROENTEROLOGY | Lucrecia KYRA [address] | | | | | [address] [place] | [address] | | | | | [address] [place], [place] | [place], [place] | | | | | [address] | [address] | | | | | [phone] | | | +--------+ + + + [...] 2019 | Office | | [address] | | | | Visit | | [place], | | | | | | [place] [address] | | | | | | [phone] | | | | | | | | +--------+ + + + + | 07/09/ | Virtual | Gastroenterology | Osito Bowen | | | 2020 | Office | | MD Jonathan [address] | | | | Visit | | [place] [address] | | | | | | [phone] | | | | | | | | +--------+ + + + + documented as of this encounter Procedures + +--------+ + + + | Procedure Name | Priori | Date/Time | Associated Diagnosis | Comments | | | ty | | | | + +--------+ + + + | TB SKIN TEST | Routin | 11/07/2014 | | Results for this | | | e | 3:09 PM | | procedure are in the | | | | PST | | results section. | + +--------+ + + + documented in this encounter Results TB Skin Test (11/07/2014 3:09 PM PST) + +-------+ + + + | Component | Value | Ref Range | Performed | Pathologist | | | | | At | Signature | + +-------+ + + + | TB Skin | 0 | 0 - 4 mm | | | | Test | | | | | | Induration | | | | | + +-------+ + + + + + | Specimen | + + | | + + documented in this encounter Visit Diagnoses Not on filedocumented in this encounter"
--- OUTSIDE RECORDS SUMMARY | ~2020-05-23 | XMS | Encounter Summary ---
Demographics + + + | Address | [address] | | | [place] [address] | + + + | Home Phone [...] | [place] | | | | | [address] | | + + + + + Care Team Providers + +------+ + | Care Tower Equipment Repairer Name | Role | Phone | [...] | | | / | colitis, | [address] CL[address] | [address] | | | | Gastroenterol | unspecified | [facility] | [address] | | | | ogy | follow up | QUAN KHALIL, | [address] | | | | | ulcerative | [address] | [place], | | | | | colits-per | [place], | [place] [address] | | | | | lexus/pcp | [place] [address] | Phone: | | | | | arjun/mod | Phone: | [phone] | | | | | a | [phone] | Fax: | | | | | Procedures | Fax: | [phone] | | | | | OFFICE VISIT | [phone] | | | | | | REGULAR | | | +--------+--------+ + + + + Encounter Details +--------+---------+ + + + | Date | Type | Department | Care Team | Description | +--------+---------+ + + + | 07/09/ | Office | [facility] [place] | [place], | Ulcerative colitis, | | 2013 | Visit | GASTROENTEROLOGY | KYRA [address] | other complication | | | | [address] | [address] | ([facility]) (Primary Dx); | | | | [address] [place], [place] | [place], [place] | Anemia | | | | [address] | [address] | | | | | [phone] | | | +--------+---------+ + + + [...] on your doctor's advice. Talk to your pharmacy ancillary regarding the use of this medicine in [...] this medicine? Visit your doctor or health home care giver for regular checks on your progress. You will need frequent blood checks during the first few months you are receiving the medicine. If you get a cold or other infection while receiving this medicine, call your doctor or a premier health home care giver. Do not treat yourself. The medicine may increase your risk of getting an infection. Women should inform their doctor if they wish to become or think they might be pre gnant. There is a potential for serious side effects to an unborn child. Talk to your health home care giver or pharmacist for more information. Men may have a reduced sperm count while they are taking this medicine. Talk to your health home care giver for more information. This medicine may increase your risk of getting certain kinds of cancer. Talk to your docto r about healthy lifestyle choices, important screenings, and your risk. What side effects may I notice from receiving this medicine? Side effects that you should report to your doctor or health home care giver as soon as p ossible: allergic reactions like skin rash, itching or hives, swelling of the face, lips, or tong ue fever, chills, or any other sign of infection severe stomach pain unusual bleeding, bruising unusually weak or tired vomiting yellowing of the eyes or skin Side effects that usually do not require medical attention (report to your doctor or health home care giver if they continue or are bothersome): hair loss nausea This list may not describe all possible side effects. Call your doctor for medical advice a bout side effects. You may report side effects to FDA at 9-058-NSD-6041. Where should I keep my medicine? Keep [...] bran; candy that has seeds or nuts [address] [place] [address]. All rights reserve d. This information is not intended as a substitute for professional medical care. Always fo llow your healthcare professional's instructions. documented in this encounter Progress Notes Lucrecia Blank ARNP - 07/09/2014 10:16 AM PDTFormatting of this [...] COLONOSCOPY performed by Aris Schmid MD at [facility] Family History Problem [...] | | | | | | [place] [address] | | | | | | [phone] | | | | | | | | +--------+ + + + + | 07/09/ | Virtual | Gastroenterology | Osito Bowen | | 2019 | Office | | MD Jonathan [address] | | | | Visit | | [place] [address] | | | | | | [phone] | | | | | | | | +--------+ + + + + documented as of this encounter Visit Diagnoses + + | Diagnosis | + + | Ulcerative colitis, other complication - Primary | + + | Anemia Anemia, unspecified | + + documented in this encounter
--- OUTSIDE RECORDS SUMMARY | ~2020-05-23 | XMS | Encounter Summary ---
Demographics + + + | Address | [address] | | | [place] [address] | + + + | Home Phone | | + + + | Preferred Language | Unknown | + + + | Marital Status | Single | + + + | Mormonism Affiliation | 1013 | + + + | Race | Unknown | + + + | Ethnic Group | Unknown | + + + Author + + + | Author | [facility] | | | and [place] | + + + | Organization | [facility] | | | and [place] | + + + | Address | Unknown | + + + | Phone | Unavailable | + + + Support + + + + + | Name | Relationship | Address | Phone | + + + + + | Marilyn Diallo | ECON | [place] | | | | | [address] | | + + + + + Care Team Providers + +------+ + | Care Enforcement Safety Officer Name | Role | Phone | + +------+ + | Carlos Díaz NP | PCP | | + +------+ + Encounter Details +--------+ + + + + | Date | Type | Department | Care Team | Description | +--------+ + + + + | 04/24/ | Abstract | [facility] [place] | [facility], | | | 2013 | | GASTROENTEROLOGY | Lucrecia [address]RA [address] | | | | | [address] | [address] | | | | | [address] [place], [place] | [place], [place] | | | | | [address] | [address] | | | | | [phone] | | | +--------+ + + + [...] 2019 | Office | | [address] | | | | Visit | | [place], | | | | | | [place] [address] | | | | | | [phone] | | | | | | | | +--------+ + + + + | 07/09/ | Virtual | Gastroenterology | Osito Bowen | | | 2020 | Office | | MD Jonathan [address] | | | | Visit | | [place] [address] | | | | | | [phone] | | | | | | | | +--------+ + + + + documented as of this encounter Visit Diagnoses Not on filedocumented in this encounter"
--- OUTSIDE RECORDS SUMMARY | ~2020-05-23 | XMS | Encounter Summary ---
Demographics + + + | Address | [address] | | | [place] [address] | + + + | Home Phone | | + + + | Preferred Language | Unknown | + + + | Marital Status | Single | + + + | Gnosticism Affiliation | 1013 | + + + | Race | Unknown | + + + | Ethnic Group | Unknown | + + + Author + + + | Author | [facility] | | | and [place] | + + + | Organization | [facility] | | | and [place] | + + + | Address | Unknown | + + + | Phone | Unavailable | + + + Support + + + + + | Name | Relationship | Address | Phone | + + + + + | Marilyn Diallo | ECON | [place] | | | | | [address] | | + + + + + Care Team Providers + +------+ + | Care Sales And Marketing Administrator Name | Role | Phone | + +------+ + | Carlos Díaz NP | PCP | | + +------+ + Reason for Visit + +--------+ + | Reason | Onset | Comments | | | Date | | + +--------+ + | Appointment | 12/31/ | Follow up per Gela needed for patient | | | 2015 | | + +--------+ + Encounter Details +--------+ + + + + | Date | Type | Department | Care Team | Description | +--------+ + + + + | 12/31/ | Telephone | [facility] [place] | [facility], | Appointment (Follow | | 2015 | | GASTROENTEROLOGY | KYRA [address] | up per Gela needed | | | | [address] | [address] | for patient) | | | | [address] [place] | [place] | | | | | [address] | [address] | | | | | [phone] | | | +--------+ + + + [...] Notes Telephone Encounter - Misty Deleon - 01/06/2016 4:18 PM PDTPatient scheduled. Clare jaylene encounter. elep jagruti Encounter - Misty Deleon - 01/03/2016 12:47 PM PDTLeft message asking patient t o call the office back to schedule her follow up. elephone Encounter - Misty Deleon - 01/01/2016 11:55 AM PDTPost it note [...] 2019 | Office | | [address] | | | | Visit | | [place], | | | | | | [place] [address] | | | | | | [phone] | | | | | | | | +--------+ + + + + | 07/09/ | Virtual | Gastroenterology | Osito Bowen | | | 2020 | Office | | MD [address] | | | | Visit | | [place] [address] | | | | | | [phone] | | | | | | | | +--------+ + + + + documented as of this encounter Visit Diagnoses Not on filedocumented in this encounter"
--- OUTSIDE RECORDS SUMMARY | ~2020-05-23 | XMS | Encounter Summary ---
Demographics + + + | Address | [address] | | | [place] [address] | + + + | Home Phone | | + + + | Preferred Language | Unknown | + + + | Marital Status | Single | + + + | Buddhism Affiliation | 1013 | + + + | Race | Unknown | + + + | Ethnic Group | Unknown | + + + Author + + + | Author | [facility] | | | and [place] | + + + | Organization | [facility] | [...] [place] | | | | | [address] | | + + + + + Care Team Providers + +------+ + | Care Triage Clinician Name | Role | Phone | + +------+ + | Carlos Díaz NP | PCP | | + +------+ + Reason for Visit + +--------+ + | Reason | Onset | Comments | | | Date | | + +--------+ + | Medication | 01/08/ | | | Management | 2015 | | + +--------+ + Encounter Details +--------+ + + + + | Date | Type | Department | Care Team | Description | +--------+ + + + + | 01/08/ | Telephone | [facility] [place] | [facility], | Medication | | 2015 | | GASTROENTEROLOGY | KYRA [address] | Management | | | | [address] | [address] | | | | | [address] [place], [place] | [place], [place] | | | | | [address] | [address] | | | | | [phone] | | | +--------+ + + + [...] Miscellaneous Notes Telephone Encounter - Graciela Narayanan Golf Superintendent - 01/13/2016 12:18 PM PDTNoted. ele phone Encounter - Rocio Woods - 01/09/2016 12:09 PM Luan from [facility] ? IO called in regards to patients medications. Stated that they have attempted multiple times to contact the patient with no success and will be putting her medications on hold until they can get i n touch with the patient to set up a date for delivery. If needed any solar manufacturer's representative can be reached at [phone]. d ocumented in this encounter Plan of Treatment +--------+ + + + + | Date | Type | Specialty | Care Team | Description | +--------+ + + + + | 05/29/ | Virtual | Gastroenterology | Natalie, | | | 2019 | Office | | [address] | | | | Visit | | [place] | | | | | | [place] [address] | | | | | | [phone] | | | | | | | | +--------+ + + + + | 07/09/ | Virtual | Gastroenterology | Osito Bowen | | 2019 | Office | | MD [address] | | | | Visit | | [place] [address] | | | | | | [phone] | | | | | | | | +--------+ + + + + documented as of this encounter Visit Diagnoses Not on filedocumented in this encounter"
--- OUTSIDE RECORDS SUMMARY | ~2020-05-23 | XMS | Encounter Summary ---
Demographics + + + | Address | [address] | | | [place] [address] | + + + | Home Phone | | + + + | Preferred Language | Unknown | + + + | Marital Status | Single | + + + | Yarsanism Affiliation | 1013 | + + + | Race | Unknown | + + + | Ethnic Group | Unknown | + + + Author + + + | Author | [facility] | | | and [place] | + + + | Organization | [facility] | | | and [place] | + + + | Address | Unknown | + + + | Phone | Unavailable | + + + Support + + + + + | Name | Relationship | Address | Phone | + + + + + | Marilyn Diallo | ECON | [place] | | | | | [address] | | + + + + + Care Team Providers + +------+ + | Care Refrigerating Machine Operator Name | Role | Phone [...] + + | 06/25/ | Telephone | [facility] | [place], | Other | | 2013 | | GASTROENTEROLOGY | KYRA [address] | | | | | [address] | [address] | | | | | [address] [place], [place] | [place], [place] | | | | | [address] | [address] | | | | | [phone] | | | +--------+ + + + [...] 2019 | Office | | [address] | | | | Visit | | [place] | | | | | | [place] [address] | | | | | | [phone] | | | | | | | | +--------+ + + + + | 07/09/ | Virtual | Gastroenterology | Osito Bowen | | 2019 | Office | | MD [address] | | | | Visit | | [place] [address] | | | | | | [phone] | | | | | | | | +--------+ + + + + documented as of this encounter Visit Diagnoses Not on filedocumented in this encounter"
--- OUTSIDE RECORDS SUMMARY | ~2020-05-23 | XMS | Encounter Summary ---
Demographics + + + | Address | [address] | | | [place] [address] | + + + | Home Phone [...] [place] | | | | | [address] | | + + + + + Care Team Providers + +------+ + | Care Head Of Marketing Adometry Name | Role | Phone | + +------+ + PCP | Unavailable | + +------+ + Encounter Details +--------+ + + + + | Date | Type | Department | Care Team | Description | +--------+ + + + + | 06/23/ | Abstract | [place] [facility] | DATA MIGRATION [address]ANE | | | 2011 | | Conversion Location | SR | | | | | [address] | | | | | | [place], [place] | | | | | | [address] | | | | | | [phone] | | | +--------+ + + + [...] + + + | Blood Pressure | 118/68 | 02/11/2012 12:00 AM | | | | | PDT | | + + + + + | Pulse | - | - | | + + + + + | Temperature | - | - | | + + + + + | Respiratory Rate | - | - | | + + + + + | Oxygen Saturation | - | - | | + + + + + | Inhaled Oxygen | - | - | | | Concentration | | | | + + + + + | Weight | 80.7 kg (178 lb) | 02/11/2012 12:00 AM | | | | | PDT | | + + + + + | Height | 162.6 cm (5' 4") | 03/24/2010 12:00 AM | | | | | PDT | | + + + + + | Body Mass Index | 30.55 | 03/24/2010 12:00 AM | | | | | PDT | | + + + + + documented in this encounter Plan of Treatment +--------+ + + + + | Date | Type | Specialty | Care Team | Description | +--------+ + + + + | 05/29/ | Virtual | Gastroenterology | Natalie, | | | 2019 | Office | | [address] | | | | Visit | | [place] | | | | | | [place] [address] | | | | | | [phone] | | | | | | | | +--------+ + + + + | 07/09/ | Virtual | Gastroenterology | Osito Bowen | | | 2019 | Office | | MD [address] | | | | Visit | | [place] [address] | | | | | | [phone] | | | | | | | | +--------+ + + + + documented as of this encounter Procedures + +--------+ + + + | Procedure Name | Priori | Date/Time | Associated Diagnosis | Comments | | | ty | | | | + +--------+ + + + | ENDOSCOPY, COLON, | Routin | 04/09/2011 | | Results for this | | DIAGNOSTIC | e | 12:00 AM | | procedure are in the | | | | PDT | | results section. | + +--------+ + + + documented in this encounter Results ENDOSCOPY, COLON, DIAGNOSTIC (04/09/2011 12:00 AM PDT) + + | Specimen | + + | | + + + + + | Narrative | Performed At | + + + | | | + + + documented in this encounter Visit Diagnoses Not on filedocumented in this encounter
--- OUTSIDE RECORDS SUMMARY | ~2020-05-23 | XMS | Encounter Summary ---
Demographics + + + | Address | [address] | | | [place] [address] | + + + | Home Phone | | + + + | Preferred Language | Unknown | + + + | Marital Status | Single | + + + | Orthodoxy Affiliation | 1013 | + + + | Race | Unknown | + + + | Ethnic Group | Unknown | + + + Author + + + | Author | [facility] | | | and [place] | + + + | Organization | [facility] | | | and [place] | + + + | Address | Unknown | + + + | Phone | Unavailable | + + + Support + + + + + | Name | Relationship | Address | Phone | + + + + + | Marilyn Diallo | ECON | [place] | | | | | [address] | | + + + + + Care Team Providers + +------+ + | Care Dry Curer Name | Role | Phone | + +------+ + | Carlos Díaz NP | PCP | | + +------+ + Reason for Visit +--------+--------+ + | Reason | Onset | Comments | | | Date | | +--------+--------+ + | Other | 02/18/ | | | | 2014 | | +--------+--------+ + Encounter Details +--------+ + + + + | Date | Type | Department | Care Team | Description | +--------+ + + + + | 02/18/ | Telephone | [facility] | [place], | Other | | 2014 | | GASTROENTEROLOGY | KYRA Singer [address] | | | | | [address] | [address] | | | | | [address] [place], [place] | [place], [place] | | | | | [address] | [address] | | | | | [phone] | | | +--------+ + + + [...] Miscellaneous Notes Telephone Encounter - Graciela Narayanan, Master of Arts - 02/19/2015 10:26 AM PDTSpoke to Ria, explained that Danielle is wanting to start her on Humira. We will start the prior auth selene little. When it goes through, will want to see her in office. She just had her Remicade infus ion is not due for another 2 months. If we don,t have Humira auth by then she needs to go ah ead with Remicade. When we do get Humira she will need an office apt to get started. Patient verbalized understanding.Electronically signed by Graciela Narayanan Master of Arts at 02/08 10:29 AM PDTTelephone Encounter - Graciela Narayanan Master of Arts - 02/18/2015 3: 13 PM PDTLeft message that Prometheus test has been denied. Asked that patient call back. Br ie would like to start her on Humira. documented in this encounter Plan of Treatment +--------+ + + + + | Date | Type | Specialty | Care Team | Description | +--------+ + + + + | 05/29/ | Virtual | Gastroenterology | Natalie, | | 2019 | Office | | [address] | | | | Visit | | [place] | | | | | | [place] [address] | | | | | | [phone] | | | | | | | | +--------+ + + + + | 07/09/ | Virtual | Gastroenterology | Osito Bowen | | 2019 | Office | | MD Yenifer Castillo | | | | Visit | | [place] [address] | | | | | | [phone] | | | | | | | | +--------+ + + + + documented as of this encounter Visit Diagnoses Not on filedocumented in this encounter"
--- OUTSIDE RECORDS SUMMARY | ~2020-05-23 | XMS | Encounter Summary ---
Demographics + + + | Address | [address] | | | [place] [address] | + + + | Home Phone | | + + + | Preferred Language | Unknown | + + + | Marital Status | Single | + + + | Faith Affiliation | 1013 | + + + [...] | [place] | | | | | [address] | | + + + + + Care Team Providers + +------+ + | Care Senior Interior Designer Name | Role | Phone | [...] | | | remicade-wee | | [address] | | | | | [address] | | [place], | | | | | | | [place] [address] | | | | | | | Phone: | | | | | | | [phone] | | | | | | | Fax: | | | | | | | [phone] | +--------+--------+ + + + + Encounter Details +--------+ + + + + | Date | Type | Department | Care Team | Description | +--------+ + + + + | 07/02/ | Hospital | [facility] | [facility], | Ulcerative colitis, | | 2013 | Encounter | MED CTR OP INFUSION | KYRA [address] | unspecified (Primary | | | | [address] | [address] | Dx); Ulcerative | | | | [place], [place] | [place], [place] | colitis, with rectal | | | | [address] | [address] | bleeding (HCC) | | | | [phone] | | | +--------+ + + + [...] this encounter Miscellaneous Notes Miscellaneous - ANNETTE BISHOPCA - 07/06/2014 12:00 AM PDT documented in [...] | | | | | | [place] [address] | | | | | | [phone] | | | | | | | | +--------+ + + + + | 07/09/ | Virtual | Gastroenterology | Osito Bowen | | | 2019 | Office | | MD Jonathan [address] | | | | Visit | | [place] [address] | | | | | | [phone] | | | | | | | [...] | + + + + + | [facility] | [address] | [place] | [phone] | | [facility] | | [address] | | | - LABORATORY | | | | + + + + + | [facility] | [address] | [place], [place] | | | [facility] | | [id number] | | | - LABORATORY | | [...] + | [facility] [facility] | [address] | [place], [place] | [phone] | | [facility] | | [address] | | | - LABORATORY | | | | + + + + + | [address] [facility] | [address] | [place], [place] | | | [facility] | | [id number] | | | - LABORATORY | | [...] | | Monocytes | | K/uL | [facility] | | | | | | MEDICAL | | | | | | CENTER - | | | | | | LABORATORY | | + + + + + + | Absolute | 0.30 | 0.00 - 0.40 | [facility] | | | Eosinophils | | K/uL | [facility] | | | | | | MEDICAL | | | | | | CENTER - | | | | | | LABORATORY | | + + + + + + | Absolute | 0.10 | 0.00 - 0.10 | [facility] | | | Basophils | | K/uL | [facility] | | | | | | MEDICAL | | | | | | CENTER - | | | | | | LABORATORY | | + + + + + + + + | Specimen | + + | Blood | + + + + + + + | Performing | Address | City/[facility]/Zipcode | Phone Number | | Organization | | | | + + + + + | [facility] | [address] | [place], [place] | [phone] | | [facility] | | [address] | | | - LABORATORY | | | | + + + + + | [facility] | [address] | [place], [place] | | | [facility] | | [id number] [place] [address] | | | - LABORATORY | | [...]
--- OUTSIDE RECORDS SUMMARY | ~2020-05-23 | XMS | Encounter Summary ---
Demographics + + + | Address | [address] | | | [place] [address] | + + + | Home Phone [...] | [place] | | | | | [address] | | + + + + + Care Team Providers + +------+ + | Care Logger Driving Horses Name | Role | Phone | + [...] + + | 06/01/ | Refill | [facility] | Cruz Gonzalez | Medication Refill | | 2019 | | GASTROENTEROLOGY | MD [address] | | | | [address] | [address] [place], [place] | | | | | [place], [place] | [address] | | | | | [address] | | | | | | [phone] | | | +--------+--------+ + + + [...] Miscellaneous Notes Telephone Encounter - Cliff Bojorquez Woodworking Belt Sander - 06/01/2019 3:37 PM PDTPatient aware Rx sent. elep jagruti Encounter - Cliff Bojorquez Woodworking Belt Sander - 06/01/2019 1:49 PM PDTPatient called to [...] 2019 | Office | | [address] | | | | Visit | | [place] | | | | | | [place] [address] | | | | | | [phone] | | | | | | | | +--------+ + + + + | 07/09/ | Virtual | Gastroenterology | Osito Bowen | | 2019 | Office | | MD Jonathan [address] | | | | Visit | | [place] [address] | | | | | | [phone] | | | | | | | | +--------+ + + + + documented as of this encounter Visit Diagnoses Not on filedocumented in this encounter"
--- OUTSIDE RECORDS SUMMARY | ~2020-05-23 | XMS | Clinical Summary ---
Demographics + + + | Address | [address] | | | [place] [address] | + + + | Home Phone | | + + + | Preferred Language | Unknown | + + + | Marital Status | Unknown | + + + | Taoism Affiliation | Unknown | + + + | Race | Unknown | + + + | Ethnic Group | Unknown | + + + Author + + + | Author | [facility] | + + + | Organization | [facility] | + + + | Address | Unknown | + + + | Phone | Unavailable | + + + Care Team Providers + +------+ + | Care Steam Plant Control Room Operator Name | Role | Phone | + +------+ + PCP | Unavailable | + +------+ + Source Comments ION is fully live on both [facility] Ambulatory and [facility] InPatient.[facility] Allergies Not on File Medications Not on [...]
--- OUTSIDE RECORDS SUMMARY | ~2020-05-23 | XMS | Encounter Summary ---
Demographics + + + | Address | [address] | | | [place] [address] | + + + | Home Phone [...] [place] | | | | | [address] | | + + + + + Care Team Providers + +------+ + | Care Critical Care Rn Name | Role | Phone | + +------+ + | Lilliana Wheeler | PCP | | | MILLER FIRST | | | + +------+ + Reason for Visit +--------+--------+ + | Reason | Onset | Comments | | | Date | | +--------+--------+ + | Other | 12/18/ | | | | 2013 | | +--------+--------+ + Encounter Details +--------+ + + + + | Date | Type | Department | Care Team | Description | +--------+ + + + + | 12/18/ | Telephone | [facility] [place] | [place], | Other | | 2013 | | GASTROENTEROLOGY | [address] | | | | | [address] [place] | [address] | | | | | [address] [place], [place] | [place], [place] | | | | | [address] | [address] | | | | | [phone] | | | +--------+ + + + [...] Telephone Encounter - Graciela Narayanan Master of Mobile System 7 - 12/19/2013 8:38 AM PDTSpoke to Ria Danielle asks that she stay on the same dosage of Asacol and we will wait and see what the results are of colonoscopy . Patient verbalized understanding. elephone Encounter - Liberty Narayanan Master of Mobile System 7 - 12/18/2013 2:45 PM PDTPatient called to let Danielle know that the Asaco l is coming out in her stool still in tablet form. noticed it first last week. Will call aft er I let Danielle know. elephone Encounter - Debbie Pinon - 12/18/2013 8:17 AM PDTPatient called in t o speak with the nurse about her medication Danielle put her on. Please call her back when you c an. documented in this encoun ter Plan of [...] | | | | | | [place] [address] | | | | | | [phone] | | | | | | | | +--------+ + + + + | 07/09/ | Virtual | Gastroenterology | Osito Bowen | | | 2019 | Office | | MD Jonathan [address] | | | | Visit | | [facility] [place] [address] | | | | | | [phone] | | | | | | | | +--------+ + + + + documented as of this encounter Visit Diagnoses Not on filedocumented in this encounter"
--- OUTSIDE RECORDS SUMMARY | ~2020-05-23 | XMS | Encounter Summary ---
Demographics + + + | Address | [address] | | | [place] [address] | + + + | Home Phone [...] Author + + + | Author | [facility] | | | and [place] | + + + | Organization | [facility] | | | and [place] | + + + | Address | Unknown | + + + | Phone | Unavailable | + + + Support + + + + + | Name | Relationship | Address | Phone | + + + + + | Marilyn Diallo | ECON | [place] | | | | | [address] | | + + + + + Care Team Providers + +------+ + | Care Desktop Support Engineer Name | Role | Phone | [...] + + | 04/02/ | Telephone | [facility] [place] | [facility], | Other (diarrhea) | | 2013 | | GASTROENTEROLOGY | [address]RA [address] | | | | | [address] | [address] | | | | | [address] [place], [place] | [place], [place] | | | | | [address] | [address] | | | | | [phone] | | | +--------+ + + + [...] encounter Miscellaneous Notes Telephone Encounter - Elana Rordiguez RN - 04/04/2014 12:23 PM Kristopher reviewed timmy k he recommends for patient to take asacol [...] follow up with leia rodriguez made fo r April.3 at 11:15 a.m., strongly encouraged patient to [...] she has had her labs drawn at [facility] in [place] this morning. 10:2 6 AM PDTTelephone Encounter - Elana Rodriguez RN - 04/02/2014 2:[address]w crump, he would like for patient to have bloodwork drawn cbc,cmp,sed rate,crp, she would like orders sent to [facility] in [place], she states will have them drawn first thing in the m orning, she states she is drinking lots of fluids but still feels dehydrated, states approx 5-10 loose stools daily states approx 50 % have blood noted in them, advised once we have th e blood test results then will let her know what recommends she verbalized understa nding. elephone Manoj oneil - Graciela Narayanan, Master of Arts [...] 2019 | Office | | [address] | | | | Visit | | [place] | | | | | | [place] [address] | | | | | | [phone] | | | | | | | | +--------+ + + + + | 07/09/ | Virtual | Gastroenterology | Osito Bowen | | 2019 | Office | | MD Jonathan [address] | | | | Visit | | [place] [address] | | | | | | [phone] | | | | | | | [...]
--- OUTSIDE RECORDS SUMMARY | ~2020-05-23 | XMS | Encounter Summary ---
Demographics + + + | Address | [address] | | | [place] [address] | + + + | Home Phone [...] [place] | | | | | [address] | | + + + + + Care Team Providers + +------+ + | Care Bulk Coolers Installer Name | Role | Phone | + +------+ + | Carlos Díaz NP | PCP | | + +------+ + Reason for Visit + +--------+ + | Reason | Onset | Comments | | | Date | | + +--------+ + | Lab Order | 06/17/ | | | | 2015 | | + +--------+ + Encounter Details +--------+ + + + + | Date | Type | Department | Care Team | Description | +--------+ + + + + | 06/17/ | Telephone | [facility] [place] | [facility], | Lab Order | | 2015 | | GASTROENTEROLOGY | [address] | | | | | [address] [place] | [address] | | | | | [address] [place], [place] | [place], [place] | | | | | [address] | [address] | | | | | [phone] | | | +--------+ + + + [...] Miscellaneous Notes Telephone Encounter - Graciela Narayanan Pilot Safety Inspector - 06/17/2016 3:19 PM PDTSent p atient a letter with lab order enclosed. elephone Encounter - Fatuma Mclaughlin RN - 06/17/2016 3:09 PM PDTCBC ordered and printed; will fax to patient preferred lab. elephone Encounter - Fatuma Mclaughlin RN - 06/17/2016 3:07 PM PDT----- Message from Nelson Boykin Asst sent at 03/11/2016 12:4 2 PDT ----- Regardin month cbc Recall reason: cbc/ulcerative colitis Recall Date: 06/11/16 Last procedure: 03/10/16 Comments documented in this en counter Plan of Treatment +--------+ + + + + | Date | Type | Specialty | Care Team | Description | +--------+ + + + + | 05/29/ | Virtual | Gastroenterology | Natalie, | | 2019 | Office | | [address] | | | | Visit | | [place], | | | | | | [place] [address] | | | | | | [phone] | | | | | | | | +--------+ + + + + | 07/09/ | Virtual | Gastroenterology | Osito Bowen | | | 2020 | Office | | MD Jonathan [address] | | | | Visit | | [place] [address] | | | | | | [phone] | | | | | | | | +--------+ + + + + + +------+--------+ + + | Name | Type | Priori | Associated Diagnoses | Order Schedule | | | | ty | | | + +------+--------+ + + | CBC with | Lab | Routin | Ulcerative | Expected: 06/17/2016 | | Differential | | e | Colitis, Unspecified | (Approximate), | | | | | With Other | Expires: 06/17/2017 | | | | | Complication (Hcc) | | + +------+--------+ + + documented as of this encounter Visit Diagnoses + + | Diagnosis | + + | Ulcerative colitis, unspecified with other complication (HCC) - Primary | + + documented in this encounter"
--- OUTSIDE RECORDS SUMMARY | ~2020-05-23 | XMS | Encounter Summary ---
Demographics + + + | Address | [address] | | | [place] [address] | + + + | Home Phone [...] [place] | | | | | [address] | | + + + + + Care Team Providers + +------+ + | Care Oracle Ascp Consultant Name | Role | Phone | + +------+ + | Lilliana Wheeler | PCP | | | BEHAVIORAL HEALTH CASE MANAGER | | | + +------+ + Reason [...] + + | 11/22/ | Telephone | [facility] [place] | [facility], | Other (asacol) | | 2013 | | GASTROENTEROLOGY | [address] | | | | | [address] | [address] | | | | | [address] [place], [place] | [place], [place] | | | | | [address] | [address] | | | | | [phone] | | | +--------+ + + + [...] Telephone Encounter - Graciela Narayanan Master of [place] Mars - 11/29/2013 3:01 PM PSTThe medic ation was authorized and patient and her Pharmacy were notified. elephone Encounter - Tanya Narayanan Master of [place] - 11/28/2013 2:31 PM PSTLeft message for Ria that I spoke with her i nsurance this morning and her medication authorization is still in review.Electronically sig servando by Graciela Narayanan Master of Arts at 11/28/2013 2:32 PM PSTTelephone Encounter - Robert freida Valeriy Freeman - 11/28/2013 2:22 PM PSTPatient called to check on status of auth for medic ation. Pleases return call to [phone].Electronically signed by Valeriy Potter at 2:22 PM PSTTelephone Encounter - Graciela Narayanan, Master of Arts - 11/28/2013 7 :52 AM PSTspoke to Aneesh at [facility] regarding Ria's PA for Asacol, he said that thi s is still in process. He also said [facility] is way behind on getting prior authorizations done. He could not give me any information on when it might be done. elephone Encounter - Liberty Narayanan, Master of Arts - 11/22/2013 1:01 PM PSTRia called concerned about getting a prior au thorization for her asacol, after looking through her chart I see where this information has been sent to [facility] a couple of weeks ago. [facility] and talked to Kassandra Feliciano, she said that they do have this information and it just went in for review. She said it takes about 5 day s for this. I called and left this message for Ria. Said I would call her back On Wednesday to let her know the out come.Electronically signed by Graciela Narayanan Master of Arts at 09/2014 1:04 PM PSTdocumented [...] | | | | | | [place] [address] | | | | | | [phone] | | | | | | | | +--------+ + + + + | 07/09/ | Virtual | Gastroenterology | Osito Bowen | | | 2019 | Office | | MD Yenifer Castillo | | | | Visit | | [place] [address] | | | | | | [phone] | | | | | | | | +--------+ + + + + documented as of this encounter Visit Diagnoses Not on filedocumented in this encounter"
--- OUTSIDE RECORDS SUMMARY | ~2020-05-23 | XMS | Encounter Summary ---
Demographics + + + | Address | [address] | | | [place] [address] | + + + | Home Phone [...] | Author | [facility] | | | and [place] | + + + | Organization | [facility] | | | and [place] | + + + | Address | Unknown | + + + | Phone | Unavailable | + + + Support + + + + + | Name | Relationship | Address | Phone | + + + + + | Marilyn Diallo | ECON | [place] | | | | | [address] | | + + + + + Care Team Providers + +------+ + | Care Rehab Nursing Tech Name | Role | Phone | + +------+ + | No, Physician | PCP | Unavailable | + +------+ + Reason for Visit +--------+--------+ + | Reason | Onset | Comments | | | Date | | +--------+--------+ + | Other | 07/24/ | | | | 2012 | | +--------+--------+ + Encounter Details +--------+ + + + + | Date | Type | Department | Care Team | Description | +--------+ + + + + | 07/24/ | Telephone | [facility] | [facility], | Other | | 2012 | | GASTROENTEROLOGY | [address]RA [address] | | | | | [address] | [address] | | | | | [address] [place], [place] | [place], [place] | | | | | [address] | [address] | | | | | [phone] | | | +--------+ + + + [...] Telephone Encounter - Elana Rodriguez RN - 07/26/2013 3:25 PM PDTCalled patient she states she brie sent in a new prescription for prednisone with taper instructions she only received 30 tablets though and for the first 14 days she was taking 2 tablets so she doesn't have en ough to taper off, sent in 30 more tablets for patient to continue to taper off, she verbali martina understanding. eleph one Encounter - Elana Rodriguez RN - 07/24/2013 1:33 PM PDTCalled and left message for ria to call back to our office. elephone Encounter - Debbie Pinon - 07/24/2013 11:45 AM PDTPatient called in to return beni's call. Please try her again. elephone Encounter - Graciela Narayanan CMA - 07/24/2013 10:45 AM PDTLeft message f or patient to return call. 10:4 6 AM PDTTelephone Encounter - Debbie Pinon - 07/24/2013 9:27 AM PDTPatient called in albert crowell to speak with Beni about a refill request for predisone, please call the patient back wh en you can. documented in thi s encounter Plan of Treatment +--------+ + + + + | Date | Type | Specialty | Care Team | Description | +--------+ + + + + | 05/29/ | Virtual | Gastroenterology | Natalie, | | | 2019 | Office | | [address] | | | | Visit | | [place], | | | | | | [place] [address] | | | | | | [phone] | | | | | | | | +--------+ + + + + | 07/09/ | Virtual | Gastroenterology | Osito Bowen | | | 2019 | Office | | MD Jonathan [address] | | | | Visit | | [place] [address] | | | | | | [phone] | | | | | | | | +--------+ + + + + documented as of this encounter Visit Diagnoses Not on filedocumented in this encounter"
--- OUTSIDE RECORDS SUMMARY | ~2020-05-23 | XMS | Encounter Summary ---
Demographics + + + | Address | [address] | | | [place] [address] | + + + | Home Phone [...] | + + + + + | Mrailyn Diallo | ECON | [place] | | | | | [address] | | + + + + + Care Team Providers + +------+ + | Care Web Site Specialist Name | Role | Phone | + +------+ + | Carlos Díaz NP | PCP | | + +------+ + Reason for Visit +--------+--------+ + | Reason | Onset | Comments | | | Date | | +--------+--------+ + | Other | 11/14/ | Reschedule procedure | | | 2014 | | +--------+--------+ + Encounter Details +--------+ + + + + | Date | Type | Department | Care Team | Description | +--------+ + + + + | 11/14/ | Telephone | [facility] | [facility], | Other (Reschedule | | 2014 | | GASTROENTEROLOGY | KYRA [address] | procedure) | | | | [address] | [address] | | | | | [address] [place], [place] | [place] | | | | | [address] | [address] | | | | | [phone] | | | +--------+ + + + [...] Telephone Encounter - Tahira Avalos RN - 11/15/2014 1:57 PM PSTSpoke with Ria. She sta fidelia she is not able to get the time off for her procedure next week. Requesting to reschedul e her colonoscopy from 11/20/14 to 11/27/14. Message sent to Grace to update procedure date and time. elephone Encounter - Debbie Pinon - 11/15/2014 1:30 PM PSTPatient called in to reschedule procedure with . Please give her a call back. Wi ll request results from [facility]. 1:3 0 PM PSTTelephone Encounter - Tahira Avalos RN - 11/14/2014 12:14 PM PSTI do not see that we've received the results. Please call [facility] and request results.Electronic ally signed by Tahira Avalos RN at 11/14/2014 12:15 PM PSTTelephone Encounter - Odilon Pinon - 11/14/2014 11:20 AM PSTPatient called in to see if we received her TB test results. Shavonne le said she had it done at the urgent care in [place]. documented in this encounter Plan of Treatment [...] | | | | | | [place] [address] | | | | | | [phone] | | | | | | | | +--------+ + + + + | 07/09/ | Virtual | Gastroenterology | Osito Bowen | | | 2019 | Office | | MD Jonathan [address] | | | | Visit | | [place] [address] | | | | | | [phone] | | | | | | | | +--------+ + + + + documented as of this encounter Visit Diagnoses Not on filedocumented in this encounter"
--- OUTSIDE RECORDS SUMMARY | ~2020-05-23 | XMS | Encounter Summary ---
Demographics + + + | Address | [address] | | | [place] [address] | + + + | Home Phone [...] | [place] | | | | | [address] | | + + + + + Care Team Providers + +------+ + | Care Clean Out Driller Name | Role | Phone | + [...] | | Services | | UC | [facility], | Not, In | | | Required | | (ulcerative | [place], | System | | | | | colitis), | [address]ING [address] | [place] | | | | | with rectal | [address] | Health and | | | | | bleeding | [address] | Service | | | | | Iron | [place], | | | | | | deficiency | [place] [address] | | | | | | anemia, | Phone: | | | | | | unspecified | [phone] | | | | | | Procedures | Fax: | | | | | | CHG | [phone] | | | | | | CLINICAL | | | | | | | CHEMISTRY | | | | | | | TEST [id number]- | | | | | | | [...] | | | / | colitis, | IN FLIGHT TECHNICIAN [address] | PACKAGING TECH [address] | | | | Gastroenterol | unspecified | [facility] | [address] | | | | ogy | follow up | [place], | [address] | | | | | procedure/mo | [address] | [place], | | | | | da/arjun | [place], | [place] [address] | | | | | Procedures | [place] [address] | Phone: | | | | | OFFICE | Phone: | [phone] | | | | | VISIT | [phone] | Fax: | | | | | REGULAR | Fax: | [phone] | | | | | | [phone] | | +--------+--------+ + + + + Encounter Details +--------+---------+ + + + | Date | Type | Department | Care Team | Description | +--------+---------+ + + + | 01/24/ | Office | [facility] | [facility], | UC (ulcerative | | 2015 | Visit | GASTROENTEROLOGY | [address]RA [address] | colitis), with | | | | [address] [place] | [address] | rectal bleeding | | | | [address] [place], [place] | [place], [place] | ([facility]) (Primary Dx); | | | | [address] | [address] | Iron deficiency | | | | [phone] | | anemia | +--------+---------+ + + [...] Laterality: N/A; Surgeon: Aris Schmid MD; Location: [facility] MEDICAL PROCE DURE UNIT Colonoscopy N/A 11/27/2014 Procedure: COLONOSCOPY; Surgeon: Aris Schmid MD; Location: [facility] MEDICAL PROCEDURE UNI T Sigmoid colon [...] with rectal bleeding (HCC) Ambulatory referral to Gastroentermary potter (chantal) Plan: Due to continued symptoms [...] | | 2019 | Office | | Indigo [address], [address] | | | | Visit | | [facility], | | | | | | [place] [address] | | | | | | [phone] | | | | | | | | +--------+ + + + + | 07/09/ | Virtual | Gastroenterology | Osito Bowen | | | 2019 | Office | | MD Jonathan [address] | | | | Visit | | [place] [address] | | | | | | [phone] | | | | | | | [...] Referral | e | with rectal | ([facility]), | | ([facility]) | | | bleeding (HCC) | Expires: 01/24/2016 | + + +--------+ + + documented as of this encounter Visit Diagnoses + + | Diagnosis | + + | UC (ulcerative colitis), with rectal bleeding - Primary | + + | Iron deficiency anemia Iron deficiency anemia, unspecified | + + documented in this encounter
--- OUTSIDE RECORDS SUMMARY | ~2020-05-23 | XMS | Encounter Summary ---
Demographics + + + | Address | [address] | | | [place] [address] | + + + | Home Phone | | + + + | Preferred Language | Unknown | + + + | Marital Status | Single | + + + | Jewish Affiliation | 1013 | + + + | Race | Unknown | + + + | Ethnic Group | Unknown | + + + Author + + + | Author | [facility] | | | and [place] | + + + | Organization | [facility] | | | and [place] | + + + | Address | Unknown | + + + | Phone | Unavailable | + + + Support + + + + + | Name | Relationship | Address | Phone | + + + + + | Marilyn Diallo | ECON | [place] | | | | | [address] | | + + + + + Care Team Providers + +------+ + | Care Waste Reclaimer Name | Role | Phone | + +------+ + | Carlos Díaz NP | PCP | | + +------+ + Reason for Visit +--------+--------+ + | Reason | Onset | Comments | | | Date | | +--------+--------+ + | Other | 11/07/ | | | | 2014 | | +--------+--------+ + Encounter Details +--------+ + + + + | Date | Type | Department | Care Team | Description | +--------+ + + + + | 11/07/ | Telephone | [facility] | [place], | Other | | 2014 | | GASTROENTEROLOGY | [address]RA [address] | | | | | [address] | [address] | | | | | [address] [place], [place] | [place], [place] | | | | | [address] | [address] | | | | | [phone] | | | +--------+ + + + [...] Telephone Encounter - Graciela Narayanan Master of mPay Gateway - 11/07/2014 12:07 PM PSTThe order s have now been faxed. 15 12:07 PM PSTTelephone Encounter - Litzy Costa - 11/07/2014 11:57 AM PSTShe would lik e them done at [facility] in [place]. elephone Encounter - Graciela Narayanan Master of [employer]Pay [employer] - 11/07/2014 10:21 AM PSTHave lab orders for patient, where would she like to get these done? Will fax them once s he lets us know. 10: 22 AM PSTdocumented in this encounter Plan of Treatment +--------+ + + + + | Date | Type | Specialty | Care Team | Description | +--------+ + + + + | 05/29/ | Virtual | Gastroenterology | Natalie, | | | 2019 | Office | | [address] | | | | Visit | | [place] | | | | | | [place] [address] | | | | | | [phone] | | | | | | | | +--------+ + + + + | 07/09/ | Virtual | Gastroenterology | Osito Bowen | | 2019 | Office | | MD Jonathan [address] | | | | Visit | | [place] [address] | | | | | | [phone] | | | | | | | | +--------+ + + + + documented as of this encounter Visit Diagnoses Not on filedocumented in this encounter"
--- OUTSIDE RECORDS SUMMARY | ~2020-05-23 | XMS | Encounter Summary ---
Demographics + + + | Address | [address] | | | [place] [address] | + + + | Home Phone [...] | [place] | | | | | [address] | | + + + + + Care Team Providers + +------+ + | Care Binder And Box Builder Name | Role | Phone | + +------+ + | Carlos Díaz NP | PCP | | + +------+ + Encounter Details +--------+ + + + + | Date | Type | Department | Care Team | Description | +--------+ + + + + | 03/10/ | Hospital | [facility] | [facility], | Ulcerative colitis, | | 2016 | Encounter | [facility] | [address]RA [address] | unspecified with | | | | [address] [place] | [address] | other complication | | | | [place], [place] | [place], [place] | ([facility]) | | | | [address] | [address] | | | | | [phone] | | | +--------+ + + + [...] | | | | | | [place] [address] | | | | | | [phone] | | | | | | | | +--------+ + + + + | 07/09/ | Virtual | Gastroenterology | Osito Bowen | | | 2019 | Office | | MD Jonathan [address] | | | | Visit | | [place] [address] | | | | | | [phone] | | | | | | | [...] + | [address] | [address] | [place] | [phone] | | [facility] | | [address] | | | - LABORATORY | | [...] [address] | [place] | [phone] | | [facility] | | [address] | | | - LABORATORY | | [...] + + | [address] | [address] | [place] | [phone] | | [facility] | | [address] | | | - LABORATORY | | | | + + + + + documented in this encounter Visit Diagnoses + + | Diagnosis | + + | Ulcerative colitis, unspecified with other complication (HCC) | + + documented in this encounter"
--- OUTSIDE RECORDS SUMMARY | ~2020-05-23 | XMS | Encounter Summary ---
Demographics + + + | Address | [address] | | | [place] [address] | + + + | Home Phone [...] [place] | | | | | [address] | | + + + + + Care Team Providers + +------+ + | Care Assistant Professor Nurse Education Name | Role | Phone | + [...] + | 07/22/ | Telephone | [facility] | [place], | Other | | 2014 | | GASTROENTEROLOGY | [address] | | | | | [address] | [address] | | | | | [address] [place], [place] | [place], [place] | | | | | [address] | [address] | | | | | [phone] | | | +--------+ + + + [...] Miscellaneous Notes Telephone Encounter - Graciela Narayanan Acid Strength Inspector - 07/24/2015 1:24 PM PDTSent p atient a letter to have her call. elephone Encounter - Graciela Narayanan Acid Strength Inspector - 1 2:22 PM PDTLeft message for [...] | | | | | | [place] [address] | | | | | | [phone] | | | | | | | | +--------+ + + + + | 07/09/ | Virtual | Gastroenterology | Osito Bowen | | 2019 | Office | | MD Jonathan [address] | | | | Visit | | [place] [address] | | | | | | [phone] | | | | | | | | +--------+ + + + + documented as of this encounter Visit Diagnoses Not on filedocumented in this encounter"
--- OUTSIDE RECORDS SUMMARY | ~2020-05-23 | XMS | Encounter Summary ---
Demographics + + + | Address | [address] | | | [place] [address] | + + + | Home Phone [...] + + + | Author | [facility] | | | and [place] | + + + | Organization | [facility] | | | and [place] | + + + | Address | Unknown | + + + | Phone | Unavailable | + + + Support + + + + + | Name | Relationship | Address | Phone | + + + + + | Marilyn Diallo | ECON | [place] | | | | | [address] | | + + + + + Care Team Providers + +------+ + | Care Cocoa Press Operator Name | Role | Phone | [...] + + | 08/09/ | Telephone | [facility] | Aris Schmid MD | Appointment | | 2014 | | GASTROENTEROLOGY | [address] [facility] | | | | | [address] [facility] | [place], [place] | | | | | [address] [place], [place] | [address] | | | | | [address] | [phone] | | | | | [phone] | | | +--------+ + + + [...] Notes Telephone Encounter - Adriana Wallace - 08/09/2015 8:25 AM Katy returned Gela's [...] | | | | | | [place] [address] | | | | | | [phone] | | | | | | | | +--------+ + + + + | 07/09/ | Virtual | Gastroenterology | Osito Bowen | | 2019 | Office | | MD Jonathan [address] | | | | Visit | | [place] [address] | | | | | | [phone] | | | | | | | | +--------+ + + + + documented as of this encounter Visit Diagnoses Not on filedocumented in this encounter"
--- OUTSIDE RECORDS SUMMARY | ~2020-05-23 | XMS | Encounter Summary ---
Demographics + + + | Address | [address] | | | [place] [address] | + + + | Home Phone [...] [place] | | | | | [address] | | + + + + + Care Team Providers + +------+ + | Care Packaging Sales Consultant Name | Role | Phone | + +------+ + | Carlos Díaz NP | PCP | | + +------+ + Reason for Visit +--------+--------+ + | Reason | Onset | Comments | | | Date | | +--------+--------+ + | Other | 05/22/ | | | | 2020 | | +--------+--------+ + Encounter Details +--------+ + + + + | Date | Type | Department | Care Team | Description | +--------+ + + + + | 05/22/ | Telephone | [facility] | Osito Bowen | Other | | 2020 | | GASTROENTEROLOGY | MD Jonathan [address] | | | | | [address] | [place] [address] | | | | | [place], [place] | [phone] | | | | | [address] | | | | | | [phone] | | | +--------+ + + + [...] this encounter Miscellaneous Notes Telephone Encounter - Josefina Olmos, Experimental Box Tester - 05/23/2020 11:39 AM PDTForm atting of this note might be different from the original. Patient called back and was informed of msg. She states she needed Dr. Bowen to refill the prednisone as she has been on it for over a year. Informed patient that she was suppose to be on Entyvio but that she did not do so, as she had stated she would call back when she finished moving, patient states she had a lot going on and she never started the medication . 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 Patient stat es "then why has Dr. Bowen been refilling it?" informed her that she was suppose to f/u up with us but she never called back. Patient was informed that Dr. Bowen would not re fill prednisone for her anymore. She has to be seen and discuss other options as she never s cheduled her Entyvio infusions and they did make several attempts to contact her but patient never called back. From her previous GI doctor notes patient is non-compliant and was discharged from there. P vincent does have a history of using ER for prednisone. Informed patient that she can see ano ther provider sooner if she desires. Patient was transferred to Electrical Tester to schedule f/u wi th [facility]TA sooner. Thanks mvd Telephone Encounter - Graciela Narayanan CMA - 05/11/2018 0851 PDT Left message for patient that Danielle thinks she should continue her care in [place] due to her non compliance with our office. Back to top of Miscellaneous Notes Telephone Encounter - Molly Ardon - 05/09/2018 1416 PDT Patient called back, she was wanting to know if Danielle would start seeing her again, she has been hospitalized a couple times here recently, and she knows that Danielle knows her body and h er treatment history. She said she was referred to [facility] but feels better about coming h ere, told her we would have to consult with Danielle when she gets back into office, she verbali zed understanding. 4:00 PM Mary Boogie routed this conversation to Gastroenterology Clinical Staff May 12, 2019 Me Sp[facility], she stated that she spoke to patient recently, a nd that she did have a lot going on, she was in the process of moving so she never actually started the infusions at the hospital for her Entyvio. She stated that their policy states a fter 60 days the patient has to shift to home infusions and that she would help coordinate t hat. Informed her that the patient did miss her last appmt with Dr. Bowen so we hadn't seen her since December. She stated that it would be best to call the authorization department and have them cancel or discontinue the authorization as it would on 05/26. Informed h er that I would call them and let them know to please cancel her order. We will try to get a hold of patient to find out when she would like to get this process started as she doesn't k now what life looks like in the next couple weeks. Called and spoke to george in the auth department and informed her that we need the infu sions cancelled, so that when patient decides when she can start we can resubmit for new ord ers with new expiration date and after 60 days we can shift her to a home infusion setting. elephone Encounter - Shelia Tuttle Experimental Box Tester - 05/23/2020 11:30 AM PDTPatient c iva back and I relayed the message to her from Dr. Bowen and got her scheduled for Zo om apt. P DTTelephone Encounter - Josefina Olmos Experimental Box Tester - 05/23/2020 10:16 AM PDTCal led pt to inform her of msg. No answer vm left for pt to call back. Patient needs a f/u appm t. No refill at this time. Thanks mvd elephone Encounter - Osito Bowen MD - 05/23/20 20 9:50 AM PDTShe has not been seen in clinic in well over a year. Set up clinic visit. P rednisone is not a long-term medication and refill will not be given at this time.Electronic ally signed by Osito Bowen MD at 05/23/2020 9:51 AM PDTTelephone Encounter - Ayah Castillo Experimental Box Tester - 05/22/2020 4:21 PM PDTPatient called in and requested anot her Dr to refill her medication. Send refill request to [facility] elephone Encounter - Josefina Olmos Medic al Sweep Molder - 05/22/2020 11:46 AM PDTPatient was informed that Dr. Bowen is on vacatio n and that he would refill if able to when he came back to work. Patient verbalized understa nding. Thanks mvd Electronically signed by Marge Purdy Assistant at 020 11:47 AM PDTTelephone Encounter - Josefina Olmos Experimental Box Tester - 05/22/2020 1 1:46 AM PDT----- Message from Marge Singh sent at 05/21/2020 1:29 PM P DT ----- Pt called in requesting refill on Prednisone due to symptoms. Please follow up on this. d ocumented in this encounter Plan of Treatment +--------+ + + + + | Date | Type | Specialty | Care Team | Description | +--------+ + + + + | 05/29/ | Virtual | Gastroenterology | Natalie, | | | 2019 | Office | | [address] | | | | Visit | | [place] | | | | | | [place] [address] | | | | | | [phone] | | | | | | | | +--------+ + + + + | 07/09/ | Virtual | Gastroenterology | Osito Bowen | | | 2020 | Office | | MD [address] | | | | Visit | | [place] [address] | | | | | | [phone] | | | | | | | | +--------+ + + + + documented as of this encounter Visit Diagnoses Not on filedocumented in this encounter
--- OUTSIDE RECORDS SUMMARY | ~2020-05-23 | XMS | Encounter Summary ---
Demographics + + + | Address | [address] | | | [place] [address] | + + + | Home Phone | | + + + | Preferred Language | Unknown | + + + | Marital Status | Single | + + + | Jain Affiliation | 1013 | + + + [...] | [place] | | | | | [address] | | + + + + + Care Team Providers + +------+ + | Care Barrel Bung Remover And Dumper Name | Role | Phone | + [...] | | | / | colitis, | COMMUNITY HEALTH NAVIGATOR [address] | INDUSTRIAL WASTE TREATMENT TECHNICIAN [address] | | | | Gastroenterol | unspecified | [facility] | [address] | | | | ogy | Medication | [place], | [address] | | | | | Reasons/moda | [address] | [place], | | | | | /arjun | [place], | [place] [address] | | | | | Procedures | [place] [address] | Phone: | | | | | OFFICE VISIT | Phone: | [phone] | | | | | REGULAR | [phone] | Fax: | | | | | | Fax: | [phone] | | | | | | [phone] | | +--------+--------+ + + + + Encounter Details +--------+---------+ + + + | Date | Type | Department | Care Team | Description | +--------+---------+ + + + | 03/11/ | Office | [facility] | [facility], | Ulcerative colitis, | | 2014 | Visit | GASTROENTEROLOGY | KYRA [address] | other complication | | | | [address] | [address] | ([facility]) (Primary Dx) | | | | [address] [place], [place] | [place], [place] | | | | | [address] | [address] | | | | | [phone] | | | +--------+---------+ + + + [...] | Blood Pressure | 110/68 | 03/11/2015 11:00 AM | | | | | PDT | | + + + + + | Pulse | 83 | 03/11/2015 11:00 AM | | | | | PDT | | + + + + + | Temperature | 36.8 C (98.3 F) | 03/11/2015 11:00 AM | | | | | PDT | | + + + + + | Respiratory Rate | 16 | 03/11/2015 11:00 AM | | | | | PDT | | + + + + + | Oxygen Saturation | - | - | | + + + + + | Inhaled Oxygen | - | - | | | Concentration | | | | + + + + + | Weight | 94.8 kg (209 lb 1.6 | 03/11/2015 11:00 AM | | | | oz) | PDT | | + + + + + | Height | - | - | | + + + + + | Body Mass Index | 37.05 | 12/18/2014 11:33 AM | | | | | PDT | | + + + + + documented in this encounter Progress Notes Lucrecia Blank ARNP - 03/12/2015 10:09 PM PDTPlease see Clinic note. Nurse appointmen t. Patient started on Humira. Electronically signed by KYRA Beatty at 5 10:11 PM PDTdocumented in this encounter Plan of [...] | | | | | | [place] [address] | | | | | | [phone] | | | | | | | | +--------+ + + + + | 07/09/ | Virtual | Gastroenterology | Osito Bowen | | 2019 | Office | | MD [address] | | | | Visit | | [place] [address] | | | | | | [phone] | | | | | | | | +--------+ + + + + documented as of this encounter Visit Diagnoses + + | Diagnosis | + + | Ulcerative colitis, other complication - Primary | + + documented in this encounter"
--- OUTSIDE RECORDS SUMMARY | ~2020-05-23 | XMS | Encounter Summary ---
Demographics + + + | Address | [address] | | | [place] [address] | + + + | Home Phone [...] [place] | | | | | [address] | | + + + + + Care Team Providers + +------+ + | Care Cap Jewel Plate Assembler Name | Role | Phone | [...] + + | 12/30/ | Refill | [facility] | [facility], | Medication Refill | | 2015 | | GASTROENTEROLOGY | KYRA [address] | | | | | [address] [place] | [address] | | | | | [address] [place] | [place] | | | | | [address] | [address] | | | | | [phone] | | | +--------+--------+ + + + [...] 2019 | Office | | [address] | | | | Visit | | [place] | | | | | | [place] [address] | | | | | | [phone] | | | | | | | | +--------+ + + + + | 07/09/ | Virtual | Gastroenterology | Osito Bowen | | 2019 | Office | | MD [address] | | | | Visit | | [place] [address] | | | | | | [phone] | | | | | | | | +--------+ + + + + documented as of this encounter Visit Diagnoses Not on filedocumented in this encounter"
--- OUTSIDE RECORDS SUMMARY | ~2020-05-23 | XMS | Encounter Summary ---
Demographics + + + | Address | [address] | | | [place] [address] | + + + | Home Phone [...] [place] | | | | | [address] | | + + + + + Care Team Providers + +------+ + | Care Cash Accounting Clerk Name | Role | Phone | [...] | | | | ([facility]) | | | | | | | Procedures | | | | | | | COLONOSCOPY | | | | | | | COLONOSCOPY | | | +--------+--------+ + + + + Encounter Details +--------+---------+ + + + | Date | Type | Department | Care Team | Description | +--------+---------+ + + + | 12/25/ | Surgery | [facility] | Aris Schmid MD | COLONOSCOPY | | 2013 | | MED [facility] | [address] | | | | | [address] | [place] | | | | | [place] | [address] | | | | | [address] | [phone] | | | | | [phone] | | | +--------+---------+ + + + [...] Aris Schmid MD at 12/25/2013 7:58 AM PDTLucrecia Blank, SALE PROFESSIONAL DIGITAL MARKETING - 11/12 11:20 AM PST Ria Hastings [...] of control. Recommended discussion with PCP or UI SOFTWARE DEVELOPER. Will follow up with results. Patient is [...] PDTUlcerative colitis, inflammationElectro nically signed by Adriana Love RN at 12/25/2013 11:08 AM Adriana Ladd RN - 12/25/2013 10:31 AM PDTHistory of [place]., Diarrhea NBASE SCAN [facility] - 12/25/2013 12:00 AM PDTAssociated Order(s): PATHOLOGY - EXTERNAL SCAN 9:5 5 AM [facility] - 12/25/2013 12:00 AM PDTAssociated Order(s): PATHOLOGY - EXTERNAL SCAN NZABRINA SCAN [facility] - 12/25 12:00 AM PDTAssociated Order(s): COLONOSCOPYElectronically signed by Jassi Saldaña at 0 12/25/2013 11:18 AM PDTdocumented in this encounter Miscellaneous Notes Plan of Care - ONBASE SCAN [facility] - 01/03/2014 12:00 AM PDT iscellaneous - ONBASE SCAN [facility] - 01/01/2014 12:00 AM PDTElec tronically signed by Jassi Saldaña at 01/01/2014 7:46 AM PDTMiscellaneous - ONBASE SCAN [facility] - 12/29/2013 12:00 AM PDT l an of Care - ONBASE SCAN [facility] - 12/26/2013 12:00 AM PDT lan of Care - ONBASE SCAN [facility] - 12/26/2013 12:00 AM PDTElectron ically signed by Jassi Saldaña at 01/01/2014 9:50 AM PDTMiscellaneous - ONBASE SCAN [place] - 0 12/26/2013 12:00 AM PDT docume [...] | | | | | | [place] [address] | | | | | | [phone] | | | | | | | | +--------+ + + + + | 07/09/ | Virtual | Gastroenterology | Osito Bowen | | 2019 | Office | | MD [address] | | | | Visit | | [place] [address] | | | | | | [phone] | | | | | | | [...] 12/25/2013 | PROVATION | | 10:28 AMMRN: [id number] #: [id number] of : | | | 1980Admit Type: AmbulatoryAge: 33Room: [facility] 02Gender: FemaleNote | | | Status: FinalizedAttending [...] by the physician, the nurse and the music sound light technician in the | | | pre-procedure [...] and recommendations were discussed with the patient.Aris Schmid, | | | 12/25/2013 11:17 AMNumber of Addenda: 0Note Initiated On: 12/25/2013 | | | 10:28 AM [facility], [address] [facility], | | | [place] [address] | | | - Discharge patient to [...] On: 12/25/2013 10:28 AM | | | [facility], [address] [place] [address], [place], [place] | | | [address] | | + + -+ + + [...]
--- OUTSIDE RECORDS SUMMARY | ~2020-05-23 | XMS | Encounter Summary ---
Demographics + + + | Address | [address] | | | [place] [address] | + + + | Home Phone [...] | [place] | | | | | [address] | | + + + + + Care Team Providers + +------+ + | Care Director Style Name | Role | Phone | + +------+ + | No, Physician | PCP | Unavailable | + +------+ + Reason for Visit +--------+ + | Reason | Comments | +--------+ + | Other | ulcerative colitis | +--------+ + Encounter Details +--------+---------+ + + + | Date | Type | Department | Care Team | Description | +--------+---------+ + + + | 07/06/ | Office | [facility] | [facility], | Ulcerative colitis | | 2012 | Visit | GASTROENTEROLOGY | KYRA [address] | ([facility]) (Primary Dx); | | | | [address] | [address] | Diarrhea; Abdominal | | | | [address] [place], [place] | [place], [place] | pain | | | | [address] | [address] | | | | | [phone] | | | +--------+---------+ + + + [...] + + + | Blood Pressure | 120/74 | 07/06/2013 9:30 AM | | | | | PDT | | + + + + + | Pulse | 80 | 07/06/2013 9:30 AM | | | | | PDT | | + + + + + | Temperature | 36.3 C (97.3 F) | 07/06/2013 9:30 AM | | | | | PDT | | + + + + + | Respiratory Rate | 16 | 07/06/2013 9:30 AM | | | | | PDT | | + + + + + | Oxygen Saturation | - | - | | + + + + + | Inhaled Oxygen | - | - | | | Concentration | | | | + + + + + | Weight | 77.6 kg (171 lb) | 07/06/2013 9:30 AM | | | | | PDT | | + + + + + | Height | 162.6 cm (5' 4") | 07/06/2013 9:30 AM | | | | | PDT | | + + + + + | Body Mass Index | 29.35 | 07/06/2013 9:30 AM | | | | | PDT | | + + + + + documented in this encounter Patient Instructions Patient Instructions Lucrecia Blank ARNP - 07/06/2013 10:00 AM PDT Start Ulcerative colitis meds- Prednisone and Asacol. Start control Management of Ulcerative Colitis: Lifestyle You can lead a full life even if you have ulcerative colitis. Focus on keeping your symptom s under control. And don t let this disease isolate you. By planning ahead and working wit h support groups, you can find ways to cope. And you may even help others who have ulcerativ e colitis. Ulcerative colitis is a type of inflammatory bowel disease (IBD). Have a Plan Make this your goal: Ulcerative colitis won t keep me from the activities I enjoy. You may need to do some planning to reach that goal. But by staying positive, you can help m krishna sure you re in control not ulcerative colitis. Here are some other tips: Know where to find clean bathrooms. Eat more small meals instead of three big meals, especially when on the road or when you don t have easy access to bathrooms. If you ve had a recent flare-up, eat foods that you know will limit your symptoms. Nando p those foods on hand, both at home and at work. Get some exercise every day. Take a stress reduction class. If going on a long trip, discuss your plans with your health care provider. He or she adria n teach you what to do if you have a flare-up while on the road. Find a Support Group Ulcerative colitis support groups can help you with many concerns you may have. Other peopl e have felt much of what you may be feeling. Just knowing that you re not alone can be a g reat comfort. Or someone in a support group may offer a travel tip or a coping skill that s perfect for you. And don t forget how satisfying it can feel to help another ulcerative colitis patient who s in need. Contact the Crohn s [facility] Col[facility] toll-free at 8 [phone]. Managing Nutrition You may be able to eat most foods until you have a flare-up. But like anyone else, you need to make healthy eating choices. Some of the healthiest foods can make symptoms worse, oscar h. Keeping track of your problem foods may be helpful. Ask your health care provider a ny questions you have about healthy eating. Avoid Your Problem Foods There s no rule for which foods can be a problem. How you feel after eating them is the b est guide. You may need to avoid high-fiber foods and foods that are hard to digest. These c an include fresh fruits and vegetables. High-fat foods, such as whole-milk dairy products an d red meat, also can worsen symptoms in a flare-up. Write down what you eat and how it affec ts you. If one kind of food often gives you trouble, stay away from it. Also note the foods that work well for you. Your health care provider may have you see a water operator to come up with the best food choices for you. A water operator can help ensure that you eat foods that are safe while getting proper nourishment. Foods That Are Often Safe No two people respond the same to all foods. But these choices are often safe to eat during a flare-up: Applesauce Adelita toast Flavored gelatin Vanilla pudding Custard White rice Plain pasta Canned peaches or pears Baked potatoes Tuna packed in water Mashed potatoes Skinless chicken Instant oatmeal [address] [place] [address]. All rights reserve d. This information is not intended as a substitute for professional medical care. Always fo llow your healthcare professional's instructions. documented in this encounter Progress Notes Lucrecia Blank ARNP - 07/06/2013 9:44 AM PDTFormatting of this note might be differe nt from the original. Ria Hastings is a 33 y.o. female here for followup Ulcerative colitis with recent hospital ization. History of present illness: Patient discharged from the hospital hospital 06/20/2013 due to bloody diarrhea and ulcerati ve colitis flare. She continues to have diarrhea 5-7 BM per day. All stool are loose or runny. No blood notic ed since discharge from the hospital. Denies any significant abdominal pain since discharge. She admits to stopping her Asacol several months prior to hospitalization due to cost. She says she understands the importance of continuing her UC meds even when she is feeling kahlil r. Allergies Allergen Reactions Sulfa Antibiotics Past Medical History Diagnosis Date Colitis Anemia History of blood transfusion Ectopic Past Surgical History Procedure Date Ectopic surgery [...] Used Alcohol Use: No Drug Use: Yes marijuana Sexually Active: Not on file Other Topics Concern Not on file Social History Narrative No narrative on file Review of systems: Constitutional: Denies fevers/chills since discharge from hospital. Respiratory:Denies shortness of breath, cough or wheezing. Gastrointestinal:Negative except as stated above. Cardiovascular:Denies chest pain, palpitations, or swelling to legs. Physical exam: General: well developed, well nourished, in no acute distress. Head: normocephalic and atraumatic Eyes: Sclera clear Mouth: MMM Lungs: Clear to auscultate bilaterally and throughout Heart: regular rate and rhythm Abdomen: Soft, non tender, non distended, bowel tones positive times 4 quadrants, negative Shaw y's sign, negative rebound tenderness, no guarding, no hepatosplenomegaly palpated. Msk: symmetrical with no deformity, with normal posture and gait, normal strength. Extremities: no clubbing, cyanosis, edema, or deformity noted Neurologic: no focal deficits, cranial nerves II-XII grossly intact Skin: intact without lesions or rashes. Psych: alert and cooperative; normal mood and affect; normal attention span and concentration. Laboratory 06/16/2013: WBC 13.7 Hemoglobin 10.9 Hematocrit 35.7 Platelets 288,000 BMP within normal limits CT abdomen pelvis with contrast 06/16/2013: The colon is markedly abnormal, with a thickened wall throughout, but somewhat featureless appearance, as. Chronic fat stranding. The terminal ileum also appears somewhat featureles s it is slightly dilated and fluid filled. Assessment 1. Ulcerative colitis 2. Diarrhea 3. Abdominal pain Plan: Patient to restart Asacol 800 mg tid, as this has worked well for her in the past. Will restart Prednisone with proper taper. She will start at 20 mg and decrease by 5 mg eac h week. She is to call if symptoms return when she begins to taper. Discussed the importance of avoiding unplanned pregnancies. She is to follow up with provid er to begin control pill. Will recheck inflammatory markers if symptoms return. She may need repeat colonoscopy for r estaging. She is planning on having health insurance starting in July. Will determine if further t esting needed Patient is to call with any question or concerns. Any fevers, chills, chest pain, SOB or o ther serious symptoms patient is to call the office or go to ER Reviewed most recent labs, imaging, and procedures. This note was dictated using voice recognition software. Please contact me if there are an y questions regarding its content. documented in t his encounter Miscellaneous Notes Miscellaneous - ANNETTE VELASQUEZ - 07/06/2013 12:00 AM PDT documented in this encounter [...] | | | | | | [place] [address] | | | | | | [phone] | | | | | | | | +--------+ + + + + | 07/09/ | Virtual | Gastroenterology | JohanaOsito oneil | | | 2019 | Office | | MD Jonathan [address] | | | | Visit | | [place] [address] | | | | | | [phone] | | | | | | | | +--------+ + + + + documented as of this encounter Visit Diagnoses + + | Diagnosis | + + | Ulcerative colitis (HCC) - Primary Ulcerative colitis, unspecified | + + | Diarrhea | + + | Abdominal pain Abdominal pain, unspecified site | + + documented in this encounter
--- OUTSIDE RECORDS SUMMARY | ~2020-05-23 | XMS | Encounter Summary ---
Demographics + + + | Address | [address] | | | [place] [address] | + + + | Home Phone [...] [place] | | | | | [address] | | + + + + + Care Team Providers + +------+ + | Care Dopster Name | Role | Phone | + [...] | Services | ogy | Ulcerative | [place], | MD Aris | | | Required | | colitis, | Lu[place], | [address] | | | | | with rectal | [employer] [employer] [address] | [place], | | | | | bleeding | [address] | [place] [address] | | | | | Diarrhea | [address] | Phone: | | | | | Procedures | [place], | [phone] | | | | | [place] | [place] [address] | Fax: | | | | | COLONOSCOPY | Phone: | [phone] | | | | | FLX DX | [phone] | | | | | | W/COLLJ SPEC | Fax: | | | | | | WHEN PFRMD | [phone] | | | | | | [place] | | | | | | | COLONOSCOPY | | | | | | | W/BIOPSY | | | | | | | SINGLE/MULTI | | | | | | | PLE [place] | | | | | | | [...] | | | / | colitis, | SYSTEM AUDITOR [address] | [address] | | | | Gastroenterol | unspecified | [facility] | [address] | | | | ogy | followup | [address], | [address] | | | | | ulcerative | [address] | [place], | | | | | colitis/pt/m | [place], | [place] [address] | | | | | lilia/arjun | [place] [address] | Phone: | | | | | Procedures | Phone: | [phone] | | | | | OFFICE | [phone] | Fax: | | | | | VISIT | Fax: | [phone] | | | | | REGULAR | [phone] | | +--------+--------+ + + + + Encounter Details +--------+---------+ + + + | Date | Type | Department | Care Team | Description | +--------+---------+ + + + | 10/30/ | Office | [facility] | [facility], | Ulcerative colitis, | | 2014 | Visit | GASTROENTEROLOGY | KYRA [address] | with rectal bleeding | | | | [address] [place] | [address] | ([facility]) (Primary Dx); | | | | [address] [place], [place] | [place], [place] | Diarrhea | | | | [address] | [address] | | | | | [phone] | | | +--------+---------+ + + + [...] + documented in this encounter Progress Notes Vidhi Blankianne, KYRA - 10/30/2014 10:33 AM PSTFormatting of this note might be differrey nt from the original. Ria Hastings is [...] Laterality: N/A; Surgeon: Aris Schmid MD; Location: [facility] Family History Problem Relation Age of [...] | | | | | | [place] [address] | | | | | | [phone] | | | | | | | | +--------+ + + + + | 07/09/ | Virtual | Gastroenterology | Osito Bowen | | | 2020 | Office | | MD Jonathan [address] | | | | Visit | | [place] [address] | | | | | | [phone] | | | | | | | [...]
--- OUTSIDE RECORDS SUMMARY | ~2020-05-23 | XMS | Encounter Summary ---
Demographics + + + | Address | [address] | | | [place] [address] | + + + | Home Phone [...] | [place] | | | | | [address] | | + + + + + Care Team Providers + +------+ + | Care Hand Candle Molder Name | Role | Phone | + [...] + + | 07/11/ | Telephone | [facility] | [facility], | Other (Ria was | | 2011 | | GASTROENTEROLOGY | KYRA [address] | prescribed an | | | | [address] [place] | [address] | antiinflammatoy by | | | | [address] [place] | [place] | an orthopedic doctor | | | | [address] | [address] | and wants to | | | | [phone] | | discuss this new | | [...] - Graciela Narayanan - 07/11/2012 11:30 AM SkySQL message for jennifer Rollins ad the note [...] last follow up appointment. Thank you elephone Graciela Pozo - 07/11/2012 10:42 AM PDTSpoke to Ria, [...] 2019 | Office | | [address] | | | | Visit | | [place], | | | | | | [place] [address] | | | | | | [phone] | | | | | | | | +--------+ + + + + | 07/09/ | Virtual | Gastroenterology | Osito Bowen | | | 2020 | Office | | MD Jonathan [address] | | | | Visit | | [place] [address] | | | | | | [phone] | | | | | | | | +--------+ + + + + documented as of this encounter Visit Diagnoses Not on filedocumented in this encounter"
--- OUTSIDE RECORDS SUMMARY | ~2020-05-23 | XMS | Encounter Summary ---
Demographics + + + | Address | [address] | | | [place] [address] | + + + | Home Phone | | + + + | Preferred Language | Unknown | + + + | Marital Status | Single | + + + | Voodoo Affiliation | 1013 | + + + [...] | [place] | | | | | [address] | | + + + + + Care Team Providers + +------+ + | Care Premium Service Representative Name | Role | Phone | + +------+ + | Carlos Díaz NP | PCP | | + +------+ + Reason for Visit +--------+--------+ + | Reason | Onset | Comments | | | Date | | +--------+--------+ + | Other | 08/09/ | medication question | | | 2013 | | +--------+--------+ + Encounter Details +--------+ + + + + | Date | Type | Department | Care Team | Description | +--------+ + + + + | 08/09/ | Telephone | [facility] | [facility], | Other (medication | | 2013 | | GASTROENTEROLOGY | KYRA [address] | question) | | | | [address] | [address] | | | | | [address] [place], [place] | [place] | | | | | [address] | [address] | | | | | [phone] | | | +--------+ + + + [...] Telephone Encounter - Elana Rodriguez RN - 08/09/2014 1:41 PM PDTCalled patient back she st ates she feels weak and tired states wants to sleep all the time. States tongue feels "large " no difficulty swallowing, denies hives, no facial swelling. She states no fever that she is aware of, states having approx 7 to 9 stools a day states notes blood in some of the stoo ls, states some liquid, some semi-formed, she is taking imuran at 50mg daily taking asacol a nd prednisone, states she thinks she may have a cold or a sinus issue as well. Advised if sommer magaña to feel poorly may want to go to urgent care to be evaluated, questioned if she has had bloodwork drawn yet she denies states having it drawn tomorrow, has a follow up appt jennifer next Wednesday. Patient states she will go in and be evaluated if symptoms continue o r worsen. elephone Debbie Willis - 08/09/2014 1:17 PM PDTPatient called in asking to speak with the charlee se. She said she took "a couple" of her medications and she is now feeling "weird". Please c all patient back. documented in this encounter Plan of Treatment +--------+ + + + + | Date | Type | Specialty | Care Team | Description | +--------+ + + + + | 05/29/ | Virtual | Gastroenterology | Natalie, | | | 2019 | Office | | [address] | | | | Visit | | [place], | | | | | | [place] [address] | | | | | | [phone] | | | | | | | | +--------+ + + + + | 07/09/ | Virtual | Gastroenterology | Osito Bowen | | | 2020 | Office | | MD Jonathan [address] | | | | Visit | | [place] [address] | | | | | | [phone] | | | | | | | | +--------+ + + + + documented as of this encounter Visit Diagnoses Not on filedocumented in this encounter
--- OUTSIDE RECORDS SUMMARY | ~2020-05-23 | XMS | Encounter Summary ---
Demographics + + + | Address | [address] | | | [place] [address] | + + + | Home Phone | | + + + | Preferred Language | Unknown | + + + | Marital Status | Single | + + + | Druze Affiliation | 1013 | + + + [...] [place] | | | | | [address] | | + + + + + Care Team Providers + +------+ + | Care Senior Payroll Manager Name | Role | Phone | [...] + + | 03/10/ | Telephone | [facility] [place] | [facility], | Results ([facility]) | | 2015 | | GASTROENTEROLOGY | KYRA [address] | | | | | [address] [place] | [address] | | | | | [address] [place], [place] | [place], [place] | | | | | [address] | [address] | | | | | [phone] | | | +--------+ + + + [...] Miscellaneous Notes Telephone Encounter - Graciela Narayanan, Film Producer - 03/10/2016 4:58 PM PDTSpoke to patient, gave her Brie's message. Patient has an appointment with PCP this Wednesday. Jamil f axed to Carlos Díaz NPElectronically signed by Graciela Narayanan Film Producer at 4:59 PM PDTTelephone Encounter - Graciela Narayanan, Film Producer - 03/10/2016 4:57 PM PDT----- Message from KYRA Beatty sent at 03/10/2016 15:56 PDT ----- Her labs show significant anemia without evidence of inflammation. Please forward labs to ayana parisi pcp. 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 She [...] | | | | | | [place] [address] | | | | | | [phone] | | | | | | | | +--------+ + + + + | 07/09/ | Virtual | Gastroenterology | Osito Bowen | | 2019 | Office | | MD Yenifer Castillo | | | | Visit | | [facility] [address] | | | | | | [phone] | | | | | | | | +--------+ + + + + documented as of this encounter Visit Diagnoses Not on filedocumented in this encounter"
--- OUTSIDE RECORDS SUMMARY | ~2020-05-23 | XMS | Encounter Summary ---
Demographics + + + | Address | [address] | | | [place] [address] | + + + | Home Phone [...] [place] | | | | | [address] | | + + + + + Care Team Providers + +------+ + | Care Drug Inspector Name | Role | Phone | + [...] + + | 06/24/ | Telephone | [facility] | [place], | Other | | 2016 | | GASTROENTEROLOGY | KYRA [address] | | | | | [address] [place] | [address] | | | | | [address] [place], [place] | [place], [place] | | | | | [address] | [address] | | | | | [phone] | | | +--------+ + + + [...] Miscellaneous Notes Telephone Encounter - Graciela Narayanan, Supervisor Payroll - 06/24/2016 1:51 PM PDTPatien t called about getting lab work done, wants Vidhirick to put in order. Told her that [...] 2019 | Office | | [address] | | | | Visit | | [place] | | | | | | [place] [address] | | | | | | [phone] | | | | | | | | +--------+ + + + + | 07/09/ | Virtual | Gastroenterology | Osito Bowen | | | 2019 | Office | | MD Jonathan [address] | | | | Visit | | [place] [address] | | | | | | [phone] | | | | | | | | +--------+ + + + + documented as of this encounter Visit Diagnoses Not on filedocumented in this encounter"
--- OUTSIDE RECORDS SUMMARY | ~2020-05-23 | XMS | Encounter Summary ---
Demographics + + + | Address | [address] | | | [place] [address] | + + + | Home Phone [...] | [place] | | | | | [address] | | + + + + + Care Team Providers + +------+ + | Care Delinquent Tax Collection Assistant Name | Role | Phone | [...] | 05/26/ | Refill | [facility] [place] | [facility], | Medication Refill | | 2013 | | GASTROENTEROLOGY | KYRA [address] | | | | | [address] [place] | [address] | | | | | [address] [place], [place] | [place], [place] | | | | | [address] | [address] | | | | | [phone] | | | +--------+--------+ + + + [...] | | | | | | [place] [address] | | | | | | [phone] | | | | | | | | +--------+ + + + + | 07/09/ | Virtual | Gastroenterology | Osito Bowen | | | 2019 | Office | | MD Yenifer Castillo | | | | Visit | | [place] [address] | | | | | | [phone] | | | | | | | | +--------+ + + + + documented as of this encounter Visit Diagnoses Not on filedocumented in this encounter"
--- OUTSIDE RECORDS SUMMARY | ~2020-05-23 | XMS | Encounter Summary ---
Demographics + + + | Address | [address] | | | [place] [address] | + + + | Home Phone | | + + + | Preferred Language | Unknown | + + + | Marital Status | Single | + + + | Sabianism Affiliation | 1013 | + + + [...] [place] | | | | | [address] | | + + + + + Care Team Providers + +------+ + | Care Hypoid Gear Tester Name | Role | Phone | [...] + + | 07/19/ | Refill | [facility] | Cruz Gonzalez | Medication Refill | | 2019 | | GASTROENTEROLOGY | MD Timtohy [address] | (Prednisone 10 mg) | | | | [address] | [address] [place], [place] | | | | | [place], [place] | [address] | | | | | [address] | | | | | | [phone] | | | +--------+--------+ + + + [...] Miscellaneous Notes Telephone Encounter - Cliff Bojorquez Cook Relief - 07/25/2019 12:58 PM PDTPatient aware Rx sent. elep jagruti Encounter - Osito Bowen MD - 07/25/2019 11:49 AM PDTSigned Electronically sign ed by Osito Bowen MD at 07/25/2019 11:49 AM PDTTelephone Encounter - Cliff Bojorquez, Cook Relief - 07/24/2019 2:50 PM PDTLast seen: 01/26/19 [...] | | | | | | [place] [address] | | | | | | [phone] | | | | | | | | +--------+ + + + + | 07/09/ | Virtual | Gastroenterology | Osito Bowen | | | 2019 | Office | | MD Jonathan [address] | | | | Visit | | [place] [address] | | | | | | [phone] | | | | | | | | +--------+ + + + + documented as of this encounter Visit Diagnoses Not on filedocumented in this encounter"
--- OUTSIDE RECORDS SUMMARY | ~2020-05-23 | XMS | Encounter Summary ---
Demographics + + + | Address | [address] | | | [place] [address] | + + + | Home Phone [...] [place] | | | | | [address] | | + + + + + Care Team Providers + +------+ + | Care Machine Rug Cleaner Name | Role | Phone | + +------+ + | Carlos Díaz NP | PCP | | + +------+ + Encounter Details +--------+ + + + + | Date | Type | Department | Care Team | Description | +--------+ + + + + | 03/27/ | Documentati | [facility] [place] | [facility], | | | 2014 | on | GASTROENTEROLOGY | KYRA Singer [address] | | | | | [address] [place] | [address] | | | | | [address] [place], [place] | [place], [place] | | | | | [address] | [address] | | | | | [phone] | | | +--------+ + + + [...] as of this encounter Progress Notes Graciela Narayanan Master of Arts - 03/27/2015 8:26 AM PDTCalled infusion services [...] | | | | | | [place] [address] | | | | | | [phone] | | | | | | | | +--------+ + + + + | 07/09/ | Virtual | Gastroenterology | Osito Bowen | | | 2019 | Office | | MD Yenifer Castillo | | | | Visit | | [place] [address] | | | | | | [phone] | | | | | | | | +--------+ + + + + documented as of this encounter Visit Diagnoses Not on filedocumented in this encounter"
--- OUTSIDE RECORDS SUMMARY | ~2020-05-23 | XMS | Encounter Summary ---
Demographics + + + | Address | [address] | | | [place] [address] | + + + | Home Phone [...] [place] | | | | | [address] | | + + + + + Care Team Providers + +------+ + | Care Vp Rheumatology Name | Role | Phone | + [...] | Infusion | colitis, | Lucrecia, | [address] | | | | Therapy | unspecified | [address] | [address] | | | | | Procedures | [address] | [address] | | | | | [place] | [address] | [place], | | | | | INFLIXIMAB | [place], | [place] [address] | | | | | INJECTION, | [place] [address] | Phone: | | | | | 10 MG | Phone: | [phone] | | | | | | [phone] | Fax: | | | | | | Fax: | [phone] | | | | | | [phone] | | +--------+ + + + + [...] | | | / | colitis, | [address] | [address] | | | | Gastroenterol | unspecified | [facility] | [address] | | | | ogy | follow up | QUAN KHALIL, | [address] | | | | | ulcerative | [address] | [place], | | | | | colits-per | [place], | [place] [address] | | | | | lexus/pcp | [place] [address] | Phone: | | | | | arjun/mod | Phone: | [phone] | | | | | a | [phone] | Fax: | | | | | Procedures | Fax: | [phone] | | | | | OFFICE VISIT | [phone] | | | | | | REGULAR | | | +--------+--------+ + + + + Encounter Details +--------+---------+ + + + | Date | Type | Department | Care Team | Description | +--------+---------+ + + + | 04/11/ | Office | [facility] [place] | [facility], | Ulcerative colitis, | | 2013 | Visit | GASTROENTEROLOGY | KYRA Singer [address] | unspecified (Primary | | | | [address] | [address] | Dx); Abdominal | | | | [address] [place], [place] | [place] | pain, lower, | | | | [address] | [address] | unspecified | | | | [phone] | | laterality; Bowel | | | [...] multiple sclerosis current or past resident of [place] or [facility] seizure disorder an unusual or allergic [...] information carefully each time. Talk to your automatic lathe tender regarding the use of this medicine in [...] this medicine, call your doctor or a [facility] child care sitter. Do not treat yourself. [...] of the ankles or legs, contact yo health care provider right away. If you [...] may report side effects to FDA at 6-328-JDJ-9788. Where should I keep my medicine? This [...] week later. Complains of generalized joint pains. Yolyn a bit more constipated. Stools can either [...] COLONOSCOPY performed by Aris Schmid MD at [facility] Family History [...] colitis, unspecified (HCC) Ambulatory referral to Gastroenterology ([facility]) 2. Abdominal pain, lower, unspecified laterality 3. [...] | | | | | | [place] [address] | | | | | | [phone] | | | | | | | | +--------+ + + + + | 07/09/ | Virtual | Gastroenterology | Osito Bowen | | | 2020 | Office | | MD Jonathan [address] | | | | Visit | | [place] [address] | | | | | | [phone] | | | | | | | [...] colitis, unspecified | starting 04/11/2014 | | ([facility]) | | | | until 04/11/2015 | [...]
--- OUTSIDE RECORDS SUMMARY | ~2020-05-23 | XMS | Encounter Summary ---
Demographics + + + | Address | [address] | | | [place] [address] | + + + | Home Phone [...] [place] | | | | | [address] | | + + + + + Care Team Providers + +------+ + | Care Oil Inspector Name | Role | Phone | [...] + + | 12/13/ | Telephone | [facility] | [facility], | [facility] | | 2013 | | GASTROENTEROLOGY | KYRA Singer [address] | | | | | [address] [place] | [address] | | | | | [address] [place], [place] | [place], [place] | | | | | [address] | [address] | | | | | [phone] | | | +--------+ + + + [...] Telephone Encounter - Graciela Narayanan Master of [employer] - 12/13/2013 10:17 AM PSTSpoke to Ria, she is anemic and one of her inflammatory markers is up the other is normal. Told her she needs to keep appointment for colonoscopy.Patient verbalized understanding.Electronicall y signed by Master Boykin of [employer] at 12/13/2013 10:21 AM PSTTelephone Encounter - [...] 2019 | Office | | [address] | | | | Visit | | [address] [place] | | | | | | [place] [address] | | | | | | [phone] | | | | | | | | +--------+ + + + + | 07/09/ | Virtual | Gastroenterology | Osito Bowen | | 2019 | Office | | MD Jonathan [address] | | | | Visit | | [place] [address] | | | | | | [phone] | | | | | | | | +--------+ + + + + documented as of this encounter Visit Diagnoses Not on filedocumented in this encounter"
--- OUTSIDE RECORDS SUMMARY | ~2020-05-23 | XMS | Encounter Summary ---
Demographics + + + | Address | [address] | | | [place] [address] | + + + | Home Phone [...] [place] | | | | | [address] | | + + + + + Care Team Providers + +------+ + | Care Risk Control Manager Name | Role | Phone | [...] | | | | | | | ([facility]) | | | | | | | Procedures | | | | | | | COLONOSCOPY | | | | | | | COLONOSCOPY | | | +--------+--------+ + + + + Encounter Details +--------+ + + + + | Date | Type | Department | Care Team | Description | +--------+ + + + + | 12/25/ | Hospital | [facility] | Aris Schmid MD | Colitis (Primary | | 2013 | Encounter | MED CTR MP INTRA OP | [address] | Dx); Inflammatory | | | | [address] | [place] | bowel disease | | | | [place] | [address] | | | | | [address] | [phone] | | | | | [phone] | | | +--------+ + + + [...] for 14 | 30 | 0 | 10/16/20 | | | (DELTASONE) 10 mg | [...] MD at 12/25/2013 7:58 AM PDTLucrecia Blank, [facility] - 11/12 11:20 AM PST Ria Hastings [...] of control. Recommended discussion with PCP or EMERGENCY CARE TECH. Will follow up with results. Patient is [...] Adriana Love RN at 12/25/2013 11:08 AM PDTAdriana Love RN - 12/25/2013 10:31 AM PDTHistory of U.[place]., Diarrhea NBASE SCAN [facility] - 12/25/2013 12:00 AM PDTAssociated Order(s): PATHOLOGY - EXTERNAL SCAN 9:[address] [facility] - 12/25/2013 12:00 AM PDTAssociated Order(s): PATHOLOGY - EXTERNAL [facility]AN [facility] - 12/25 12:00 AM PDTAssociated Order(s): COLONOSCOPYElectronically signed by Jassi Saldaña at 0 12/25/2013 11:18 AM PDTdocumented in this encounter Miscellaneous Notes Plan of Care - ONBASE SCAN [facility] - 01/03/2014 12:00 AM PDT iscellaneous - ONBASE SCAN [facility] - 01/01/2014 12:00 AM PDTElec tronically signed by Jassi Saldaña at 01/01/2014 7:46 AM PDTMiscellaneous - ONBASE SCAN [facility] - 12/29/2013 12:00 AM PDT l an of Care - ONBASE SCAN [facility] - 12/26/2013 12:00 AM PDT lan of Care - ONBASE SCAN [facility] - 12/26/2013 12:00 AM PDTElectron ically signed by Jassi miranda at 01/01/2014 9:50 AM PDTMiscellaneous - ZABRINA SCAN [facility] - 0 12/26/2013 12:00 AM PDT docume nted in this encounter Plan of Treatment +--------+ + + + + | Date | Type | Specialty | Care Team | Description | +--------+ + + + + | 05/29/ | Virtual | Gastroenterology | Natalie, | | | 2019 | Office | | [address] | | | | Visit | | [place] | | | | | | [place] [address] | | | | | | [phone] | | | | | | | | +--------+ + + + + | 07/09/ | Virtual | Gastroenterology | Osito Bowen | | 2019 | Office | | MD Yenifer Castillo | | | | Visit | | [place] [address] | | | | | | [phone] | | | | | | | [...] | [facility] | | GastroenterologyPatient Name: Ria Hawkinscedlenny Date: 12/25/2013 | [facility]OV[facility] | | 10:28 AMMRN: [id number] #: [id number] of : | | | 1980Admit Type: AmbulatoryAge: 33Room: [facility] 02Gender: FemaleNote | | | Status: [...] by the physician, the nurse and the cell phone repair technician in the | | | pre-procedure [...] On: 12/25/2013 | | | 10:28 AM [facility], [address], | | | [place] [address] | | | - Discharge patient to [...] On: 12/25/2013 10:28 AM | | | [facility], [address], [place], [place] | | | [address] | | + + -+ + + | Transcriptions | + + | [place] Saldañain - 12/25/2013 12:00 AM PDT | + + + +---------+ + + | Performing | Address | City/State/Zipcode | Phone Number | | Organization | | | | + +---------+ + + | [facility] | | | | + +---------+ + + documented in this encounter Visit Diagnoses + + | Diagnosis | + + | Colitis - Primary Other and unspecified noninfectious gastroenteritis and colitis | + + | Inflammatory bowel disease [...]
--- OUTSIDE RECORDS SUMMARY | ~2020-05-23 | XMS | Encounter Summary ---
Demographics + + + | Address | [address] | | | [place] [address] | + + + | Home Phone | | + + + | Preferred Language | Unknown | + + + | Marital Status | Single | + + + | Confucianism Affiliation | 1013 | + + + [...] [place] | | | | | [address] | | + + + + + Care Team Providers + +------+ + | Care Roustabout Hand Name | Role | Phone | + +------+ + | Carlos Díaz NP | PCP | | + +------+ + Encounter Details +--------+ + + + + | Date | Type | Department | Care Team | Description | +--------+ + + + + | 05/07/ | Orders Only | [facility] | [facility], | | | 2013 | | MED CTR OP INFUSION | KYRA Singer [address] | | | | | [address] | [address] | | | | | [place], [place] | [place], [place] | | | | | [address] | [address] | | | | | [phone] | | | +--------+ + + + [...] | | | | | | [place] [address] | | | | | | [phone] | | | | | | | | +--------+ + + + + | 07/09/ | Virtual | Gastroenterology | Osito Bowen | | | 2019 | Office | | MD Jonathan [address] | | | | Visit | | [place] [address] | | | | | | [phone] | | | | | | | | +--------+ + + + + documented as of this encounter Visit Diagnoses Not on filedocumented in this encounter"
--- OUTSIDE RECORDS SUMMARY | ~2020-05-23 | XMS | Encounter Summary ---
Demographics + + + | Address | [address] | | | [place] [address] | + + + | Home Phone [...] + | Author | [facility] | | | and [place] | + + + | Organization | [facility] | | | and [place] | + + + | Address | Unknown | + + + | Phone | Unavailable | + + + Support + + + + + | Name | Relationship | Address | Phone | + + + + + | Marilyn Diallo | ECON | [place] | | | | | [address] | | + + + + + Care Team Providers + +------+ + | Care Film Spooler Name | Role | Phone | + +------+ + | Carlos Díaz NP | PCP | | + +------+ + Encounter Details +--------+ + + + + | Date | Type | Department | Care Team | Description | +--------+ + + + + | 06/04/ | Orders Only | [facility] | Natalie, | Ulcerative colitis | | 2019 | | GASTROENTEROLOGY | [address] | with rectal | | | | [address] | [address] [facility], | bleeding, | | | | [facility], [place] | [place] [address] | unspecified location | | | | [address] | [phone] | (HCC) (Primary Dx) | | | | [phone] | | | +--------+ + + + [...] [place] | | | | | | [place] [address] | | | | | | [phone] | | | | | | | | +--------+ + + + + | 07/09/ | Virtual | Gastroenterology | Osito Bowen | | | 2019 | Office | | MD Jonathan [address] | | | | Visit | | [place] [address] | | | | | | [phone] | | | | | | | [...]
--- OUTSIDE RECORDS SUMMARY | ~2020-05-23 | XMS | Encounter Summary ---
Demographics + + + | Address | [address] | | | [place] [address] | + + + | Home Phone [...] [place] | | | | | [address] | | + + + + + Care Team Providers + +------+ + | Care Manager Of Information Name | Role | Phone | + +------+ + | Carlos Díaz NP | PCP | | + +------+ + Reason for Visit +--------+--------+ + | Reason | Onset | Comments | | | Date | | +--------+--------+ + | Other | 02/27/ | Yiselira | | | 2014 | | +--------+--------+ + Encounter Details +--------+ + + + + | Date | Type | Department | Care Team | Description | +--------+ + + + + | 02/27/ | Telephone | [facility] [place] | [facility], | Other (Brian) | | 2014 | | GASTROENTEROLOGY | KYRA [address] | | | | | [address] [place] | [address] | | | | | [address] [place], [place] | [place], [place] | | | | | [address] | [address] | | | | | [phone] | | | +--------+ + + + [...] - Graciela Narayanan Master of [employer] - 02/27/2015 8:52 AM PDTSpoke to Ria, her medication Humira will be delivered tomorrow. She would like an apt to go over ins tructions. Put her through to scheduling for an apt first of next week. Patient verbalized u nderstanding. elephone Encounter - Debbie Pinon - 02/27/2015 8:18 AM PDTPatient called in to get perkins with Gela about her medication. Please give her a call back. documented in this encounter Plan of Treatment +--------+ + + + + | Date | Type | Specialty | Care Team | Description | +--------+ + + + + | 05/29/ | Virtual | Gastroenterology | Natalie, | | | 2019 | Office | | [address] | | | | Visit | | [place] | | | | | | [place] [address] | | | | | | [phone] | | | | | | | | +--------+ + + + + | 07/09/ | Virtual | Gastroenterology | Osito Bowen | | 2019 | Office | | MD Jonathan [address] | | | | Visit | | [place] [address] | | | | | | [phone] | | | | | | | | +--------+ + + + + documented as of this encounter Visit Diagnoses Not on filedocumented in this encounter"
--- OUTSIDE RECORDS SUMMARY | ~2020-05-23 | XMS | Encounter Summary ---
Demographics + + + | Address | [address] | | | [place] [address] | + + + | Home Phone | | + + + | Preferred Language | Unknown | + + + | Marital Status | Single | + + + | Sabianist Affiliation | 1013 | + + + | Race | Unknown | + + + | Ethnic Group | Unknown | + + + Author + + + | Author | [facility] | | | and [place] | + + + | Organization | [facility] | | | and [place] | + + + | Address | Unknown | + + + | Phone | Unavailable | + + + Support + + + + + | Name | Relationship | Address | Phone | + + + + + | Marilyn Diallo | ECON | [place] | | | | | [address] | | + + + + + Care Team Providers + +------+ + | Care Unix Administrator Name | Role | Phone | + +------+ + | Carlos Díaz NP | PCP | | + +------+ + Encounter Details +--------+ + + + + | Date | Type | Department | Care Team | Description | +--------+ + + + + | 06/04/ | Orders Only | [facility] [place] | [facility], | | | 2014 | | GASTROENTEROLOGY | KYRA [address] | | | | | [address] [place] | [address] | | | | | [address] [place], [place] | [place], [place] | | | | | [address] | [address] | | | | | [phone] | | | +--------+ + + + [...] | | | | | | [place] [address] | | | | | | [phone] | | | | | | | | +--------+ + + + + | 07/09/ | Virtual | Gastroenterology | Osito Bowen | | | 2019 | Office | | MD Jonathan [address] | | | | Visit | | [place] [address] | | | | | | [phone] | | | | | | | | +--------+ + + + + documented as of this encounter Visit Diagnoses Not on filedocumented in this encounter"
--- OUTSIDE RECORDS SUMMARY | ~2020-05-23 | XMS | Encounter Summary ---
Demographics + + + | Address | [address] | | | [place] [address] | + + + | Home Phone [...] [place] | | | | | [address] | | + + + + + Care Team Providers + +------+ + | Care Nursery Helper Name | Role | Phone | [...] + | 05/09/ | Telephone | [facility] | [place], | Other | | 2014 | | GASTROENTEROLOGY | KYRA [address] | | | | | [address] | [address] | | | | | [address] [place], [place] | [place], [place] | | | | | [address] | [address] | | | | | [phone] | | | +--------+ + + + [...] AM PD TLVM to schedule patient with brie overbook sometime this week 05/13-05/16 per Danielle. Chart in to be called for Danielle on Debbie's Desk. 8: 20 AM PDTTelephone Encounter - Graciela Narayanan, Master of [employer] - 05/09/2015 4:09 PM PDTP atient returned call and said she is doing OK. Not a lot improvement yet. She would like to continue the Humira. Will talk to Danielle to get new auth. documented in this encounter Plan of Treatment +--------+ + + + + | Date | Type | Specialty | Care Team | Description | +--------+ + + + + | 05/29/ | Virtual | Gastroenterology | Natalie, | | 2019 | Office | | [address] | | | | Visit | | [place], | | | | | | [place] [address] | | | | | | [phone] | | | | | | | | +--------+ + + + + | 07/09/ | Virtual | Gastroenterology | Osito Bowen | | | 2020 | Office | | MD Jonathan [address] | | | | Visit | | [place] [address] | | | | | | [phone] | | | | | | | | +--------+ + + + + documented as of this encounter Visit Diagnoses Not on filedocumented in this encounter"
--- OUTSIDE RECORDS SUMMARY | ~2020-05-23 | XMS | Encounter Summary ---
Demographics + + + | Address | [address] | | | [place] [address] | + + + | Home Phone | | + + + | Preferred Language | Unknown | + + + | Marital Status | Single | + + + | Restoration Affiliation | 1013 | + + + [...] + | Marilyn Imani | ECON | [place] | | | | | [address] | | + + + + + Care Team Providers + +------+ + | Care Binding Machine Operator Name | Role | Phone | + +------+ + PCP | Unavailable | + +------+ + Encounter Details +--------+ + + + + | Date | Type | Department | Care Team | Description | +--------+ + + + + | 02/10/ | Hospital | [facility] | | | | 2011 | Encounter | MED CTR LABORATORY | | | | | | [address] | | | | | | [place] | | | | | | [address] | | | | | | [phone] | | | +--------+ + + + [...] | | | | | | [place] [address] | | | | | | [phone] | | | | | | | | +--------+ + + + + | 07/09/ | Virtual | Gastroenterology | Osito Bowen | | | 2019 | Office | | MD Jonathan [address] | | | | Visit | | [place] [address] | | | | | | [phone] | | | | | | | [...] + | [facility] | [address] | [place], [place] | [phone] | | [facility] | | [address] | | | - LABORATORY | | | | + + + + + | [facility] | [address] | [place], [place] | | | [facility] | | [address] | | | - [...] | | [facility] | | | | | | [...] + | [facility] | [address] | [place], [place] | [phone] | | [facility] | | [address] | | | - LABORATORY | | | | + + + + + | [facility] | [address] | [place], [place] | | | [facility] | | [address], [facility] | | | - LABORATORY | | | | + + + + + Sedimentation Rate (02/11/2012 2:54 PM PDT) + +--------+ + + + | Component | Value | Ref Range | Performed | Pathologist | | | | | At | Signature | + +--------+ + + + | Erythrocyte | 29 (H) | 0 - 20 mm/hr | [facility] | | | | | | STAnnie [...] + | [facility] | [address] | [place] | [phone] | | [facility] | | [address] | | | - LABORATORY | | | | + + + + + | [facility]. | [address] | [place] | | | [facility] | | [address] | | | - LABORATORY | | | | + + + + + documented in this encounter Visit Diagnoses Not on filedocumented in this encounter"
--- OUTSIDE RECORDS SUMMARY | ~2020-05-23 | XMS | Encounter Summary ---
Demographics + + + | Address | [address] | | | [place] [address] | + + + | Home Phone | | + + + | Preferred Language | Unknown | + + + | Marital Status | Single | + + + | Mormonism Affiliation | 1013 | + + + | Race | Unknown | + + + | Ethnic Group | Unknown | + + + Author + + + | Author | [facility] | | | and [place] | + + + | Organization | [facility] | | | and [place] | + + + | Address | Unknown | + + + | Phone | Unavailable | + + + Support + + + + + | Name | Relationship | Address | Phone | + + + + + | Marilyn Diallo | ECON | [place] | | | | | [address] | | + + + + + Care Team Providers + +------+ + | Care Patient Consumer Marketer Name | Role | Phone | + [...] + + | 07/06/ | Telephone | [facility] | [facility], | Other (asacol) | | 2012 | | GASTROENTEROLOGY | KYRA [address] | | | | | [address] [place] | [address] | | | | | [address] [place] | [place], [place] | | | | | [address] | [address] | | | | | [phone] | | | +--------+ + + + [...] was never sent to [facility] [place]. Spoke to Danielle, she said to go [...] | | | | | | [place] [address] | | | | | | [phone] | | | | | | | | +--------+ + + + + | 07/09/ | Virtual | Gastroenterology | Osito Bowen | | 2019 | Office | | MD Jonathan [address] | | | | Visit | | [place] [address] | | | | | | [phone] | | | | | | | | +--------+ + + + + documented as of this encounter Visit Diagnoses Not on filedocumented in this encounter"
--- OUTSIDE RECORDS SUMMARY | ~2020-05-23 | XMS | Encounter Summary ---
Demographics + + + | Address | [address] | | | [place] [address] | + + + | Home Phone [...] [place] | | | | | [address] | | + + + + + Care Team Providers + +------+ + | Care Seasonal Driver Name | Role | Phone | [...] + + | 03/26/ | Telephone | [facility] | [place], | Other | | 2015 | | GASTROENTEROLOGY | [address]RA [address] | | | | | [address] | [address] | | | | | [address] [place], [place] | [place], [place] | | | | | [address] | [address] | | | | | [phone] | | | +--------+ + + + [...] Telephone Encounter - Graciela Narayanan Master of [employer] - 03/27/2015 4:02 PM PDTSpoke to Ria, per Dr Schmid she is to taper the prednisone by 5 mg per week. Patient verbalized under standing. She is taking 20 mg this week, will move down to 15 mg next week etc.until gone.El ectronically signed by Graciela Narayanan Master of [employer] at 03/27/2015 4:04 PM PDTTelephone Encounter - Graciela Narayanan, Master of Arts - 03/27/2015 10:41 AM PDTAnthonyamado called back, s he started her Humira March 18, she wants to know if she is suppose to stop taking her prednis one? She is taking 20 mg per day at this time. Will ask Dr. Schmid and get back to her. Jovi nt verbalized understanding.Electronically signed by Graciela Narayanan [...] | | 2019 | Office | | [address] | | | | Visit | | [place], | | | | | | [place] [address] | | | | | | [phone] | | | | | | | | +--------+ + + + + | 07/09/ | Virtual | Gastroenterology | Osito Bowen | | | 2019 | Office | | MD Jonathan [address] | | | | Visit | | [place] [address] | | | | | | [phone] | | | | | | | | +--------+ + + + + documented as of this encounter Visit Diagnoses Not on filedocumented in this encounter
--- OUTSIDE RECORDS SUMMARY | ~2020-05-23 | XMS | Encounter Summary ---
Demographics + + + | Address | [address] | | | [place] [address] | + + + | Home Phone | | + + + | Preferred Language | Unknown | + + + | Marital Status | Single | + + + | Restorationism Affiliation | 1013 | + + + | Race | Unknown | + + + | Ethnic Group | Unknown | + + + Author + + + | Author | [facility] | | | and [place] | + + + | Organization | [facility] | | | and [place] | + + + | Address | Unknown | + + + | Phone | Unavailable | + + + Support + + + + + | Name | Relationship | Address | Phone | + + + + + | Marilyn Diallo | ECON | [place] | | | | | [address] | | + + + + + Care Team Providers + +------+ + | Care Diesel Mechanic Apprentice Name | Role | Phone | + +------+ + | Carlos Díaz NP | PCP | | + +------+ + Reason for Visit +---------+--------+ + | Reason | Onset | Comments | | | Date | | +---------+--------+ + | Results | 07/03/ | labs | | | 2013 | | +---------+--------+ + Encounter Details +--------+ + + + + | Date | Type | Department | Care Team | Description | +--------+ + + + + | 07/03/ | Telephone | [facility] [place] | [facility], | Results (labs) | | 2013 | | GASTROENTEROLOGY | KYRA Singer [address] | | | | | [address] [place] | [address] | | | | | [address] [place], [place] | [place], [place] | | | | | [address] | [address] | | | | | [phone] | | | +--------+ + + + [...] Telephone Encounter - Graciela Narayanan [employer] - 07/03/2014 2:04 PM PDTPatient a lso said she has been off prednisone 5 or 6 weeks. elephone Encounter - Graciela Narayanan [employer] - 07/03/2014 1:17 PM Mark Rollins her lab results. She said she is having problems with her colitis. 6-7 loose stools per day, abdominal pain. She does have heavy bleeding wi th her periods also. She is scheduled to come in to see Danielle 07/09/14. Electronically shannan d by Graciela Narayanan, Master of Arts at 07/03/2014 1:21 PM PDTdocumented in this encounte r Plan of Treatment +--------+ + + + + | Date | Type | Specialty | Care Team | Description | +--------+ + + + + | 05/29/ | Virtual | Gastroenterology | Natalie, | | | 2019 | Office | | [address] | | | | Visit | | [place] | | | | | | [place] [address] | | | | | | [phone] | | | | | | | | +--------+ + + + + | 07/09/ | Virtual | Gastroenterology | Osito Bowen | | 2019 | Office | | MD Jonathan [address] | | | | Visit | | [place] [address] | | | | | | [phone] | | | | | | | | +--------+ + + + + documented as of this encounter Visit Diagnoses Not on filedocumented in this encounter"
--- OUTSIDE RECORDS SUMMARY | ~2020-05-23 | XMS | Encounter Summary ---
Demographics + + + | Address | [address] | | | [place] [address] | + + + | Home Phone | | + + + | Preferred Language | Unknown | + + + | Marital Status | Single | + + + | Gnosticist Affiliation | 1013 | + + + | Race | Unknown | + + + | Ethnic Group | Unknown | + + + Author + + + | Author | [facility] | | | and [place] | + + + | Organization | [facility] | | | and [place] | + + + | Address | Unknown | + + + | Phone | Unavailable | + + + Support + + + + + | Name | Relationship | Address | Phone | + + + + + | Marilyn Diallo | ECON | [place] | | | | | [address] | | + + + + + Care Team Providers + +------+ + | Care Outpatient Interviewing Clerk Name | Role | Phone | [...] + + | 04/30/ | Telephone | [facility] | [facility], | Medication Orders | | 2015 | | GASTROENTEROLOGY | KYRA Singer [address] | | | | | [address] [place] | [address] [facility] [address] | | | | | [address] [place] | [place] | | | | | [address] | [address] | | | | | [phone] | | | +--------+ + + + [...] 05/01/2016 1:38 PM PDTPatient wanted to let Ftauma know that she got in touch with her ph nabor, she does not need a call back. Electronically signed by Lulu Nestor Rodriguez at 6 1:39 PM PDTTelephone Encounter - [...] Rocio Woods - 04/30/2016 3: 38 PM [facility] called in regards to the patient, stating that they cannot ge t a hold of the patient so the order for the patient is going to be put on hold. Prior auth will be expiring . If needed they can be reached at [phone].Electronically si gned by Rocio Woods at 04/30/2016 [...] | | | | | | [place] [address] | | | | | | [phone] | | | | | | | | +--------+ + + + + | 07/09/ | Virtual | Gastroenterology | Osito Bowen | | | 2019 | Office | | MD Jonathan [address] | | | | Visit | | [place] [address] | | | | | | [phone] | | | | | | | | +--------+ + + + + documented as of this encounter Visit Diagnoses Not on filedocumented in this encounter"
--- OUTSIDE RECORDS SUMMARY | ~2020-05-23 | XMS | Encounter Summary ---
Demographics + + + | Address | [address] | | | [place] [address] | + + + | Home Phone | | + + + | Preferred Language | Unknown | + + + | Marital Status | Unknown | + + + | Restorationism Affiliation | Unknown | + + + | Race | Unknown | + + + | Ethnic Group | Unknown | + + + Author + + + | Author | [facility] | + + + | Organization | [facility] | + + + | Address | Unknown | + + + | Phone | Unavailable | + + + Care Team Providers + +------+ + | Care Scout Name | Role | Phone | + +------+ + PCP | Unavailable | + +------+ + Encounter Details +--------+ + + + + | Date | Type | Department | Care Team | Description | +--------+ + + + + | 11/09/ | Abstract | Digestive Health | Clinic, | | | 2018 | | Center at [facility] [address] | Gastroenterology | | | | | [facility] | | | | | | for Health and | | | | | | Healing, [address] | | | | | | [place], [place] | | | | | | [address] | | | | | | [phone] | | | +--------+ + + + [...] recent travel history available. | + + documented as of this encounter Plan of Treatment Not on filedocumented as of this encounter Visit Diagnoses Not on filedocumented in this encounter"
--- OUTSIDE RECORDS SUMMARY | ~2020-05-23 | XMS | Encounter Summary ---
Demographics + + + | Address | [address] | | | [place] [address] | + + + | Home Phone [...] | [place] | | | | | [address] | | + + + + + Care Team Providers + +------+ + | Care Environmental Scientist Name | Role | Phone | [...] | 04/25/ | Refill | [facility] [place] | [facility], | Medication Refill | | 2013 | | GASTROENTEROLOGY | KYRA Singer [address] | | | | | [address] [place] | [address] | | | | | [address] [place], [place] | [place], [place] | | | | | [address] | [address] | | | | | [phone] | | | +--------+--------+ + + + [...] | | | | | | [place] [address] | | | | | | [phone] | | | | | | | | +--------+ + + + + | 07/09/ | Virtual | Gastroenterology | Osito Bowen | | | 2019 | Office | | MD Yenifer Castillo | | | | Visit | | [place] [address] | | | | | | [phone] | | | | | | | | +--------+ + + + + documented as of this encounter Visit Diagnoses Not on filedocumented in this encounter"
--- OUTSIDE RECORDS SUMMARY | ~2020-05-23 | XMS | Encounter Summary ---
Demographics + + + | Address | [address] | | | [place] [address] | + + + | Home Phone | | + + + | Preferred Language | Unknown | + + + | Marital Status | Unknown | + + + | Sabianist Affiliation | Unknown | + + + | Race | Unknown | + + + | Ethnic Group | Unknown | + + + Author + + + | Author | [facility] | + + + | Organization | [facility] | + + + | Address | Unknown | + + + | Phone | Unavailable | + + + Care Team Providers + +------+ + | Care Claims Director Name | Role | Phone | + +------+ + PCP | Unavailable | + +------+ + Encounter Details +--------+ + + + + | Date | Type | Department | Care Team | Description | +--------+ + + + + | 11/09/ | Abstract | Digestive Health | Clinic, | | | 2018 | | Center at [facility] [address] | Gastroenterology | | | | | [facility] | | | | | | for Health and | | | | | | Healing, [address] | | | | | | [place], [place] | | | | | | [address] | | | | | | [phone] | | | +--------+ + + + [...]
--- OUTSIDE RECORDS SUMMARY | ~2020-05-23 | XMS | Encounter Summary ---
Demographics + + + | Address | [address] | | | [place] [address] | + + + | Home Phone [...] [place] | | | | | [address] | | + + + + + Care Team Providers + +------+ + | Care Supervising Deputy Name | Role | Phone | + [...] + + | 01/08/ | Telephone | [facility] [place] | [facility], | Other (need labs) | | 2013 | | GASTROENTEROLOGY | KYRA Singer [address] | | | | | [address] [place] | [address] | | | | | [address] [place], [place] | [place], [place] | | | | | [address] | [address] | | | | | [phone] | | | +--------+ + + + [...] Notes Telephone Encounter - Graciela Narayanan [employer] - 01/08/2014 3:19 PM PDTKeri call wants [facility]. elephone Encounter - Graciela Narayanan Maste r of [employer] - 01/08/2014 3:05 PM PDTLeft message for patient to return call to let us know wh ere to send lab orders?Electronically signed by Graciela Narayanan Master of [employer] at 014 3:06 PM PDTTelephone Encounter - [...] 2019 | Office | | [address] | | | | Visit | | [place] | | | | | | [place] [address] | | | | | | [phone] | | | | | | | | +--------+ + + + + | 07/09/ | Virtual | Gastroenterology | Osito Bowen | | 2019 | Office | | MD Yenifer Castillo | | | | Visit | | [place] [address] | | | | | | [phone] | | | | | | | [...]
--- OUTSIDE RECORDS SUMMARY | ~2020-05-23 | XMS | Encounter Summary ---
Demographics + + + | Address | [address] | | | [place] [address] | + + + | Home Phone [...] | [place] | | | | | [address] | | + + + + + Care Team Providers + +------+ + | Care Lead Quality Technician Name | Role | Phone | + +------+ + PCP | Unavailable | + +------+ + Encounter Details +--------+ + + + + | Date | Type | Department | Care Team | Description | +--------+ + + + + | 04/09/ | Hospital | [facility] | | | | 2010 | Encounter | MED CTR MP INTRA OP | | | | | | [address] | | | | | | [place] | | | | | | [address] | | | | | | [phone] | | | +--------+ + + + [...] 1980 Age: 31 Admit Type: Outpatient Room: [facility] Room 2 Note Status: Finalized Attending MD: Zan Peng MD Procedure: Colonoscopy Indications: Chronic diarrhea, Follow-up of ulcerative colitis Providers: Zan Peng MD, Adriana Love RN, Nathalie Del Real, Certified Nursing Attendant Referring M D: JOSEPHINE Jason, MPH Medicines: [...] 2019 | Office | | [address] | | | | Visit | | [place] | | | | | | [place] [address] | | | | | | [phone] | | | | | | | | +--------+ + + + + | 07/09/ | Virtual | Gastroenterology | Osito Bowen | | 2019 | Office | | MD Yenifer Castillo | | | | Visit | | [place] [address] | | | | | | [phone] | | | | | | | | +--------+ + + + + documented as of this encounter Visit Diagnoses Not on filedocumented in this encounter"
--- OUTSIDE RECORDS SUMMARY | ~2020-05-23 | XMS | Encounter Summary ---
Demographics + + + | Address | [address] | | | [place] [address] | + + + | Home Phone [...] | [place] | | | | | [address] | | + + + + + Care Team Providers + +------+ + | Care Research Chef Name | Role | Phone | + +------+ + PCP | Unavailable | + +------+ + Encounter Details +--------+ + + + + | Date | Type | Department | Care Team | Description | +--------+ + + + + | 04/02/ | Hospital | [facility] | [facility], | | | 2010 | Encounter | MED CTR LABORATORY | KYRA Singer [address] | | | | | [address] [place] | [address] | | | | | [place], [place] | [place], [place] | | | | | [address] | [address] | | | | | [phone] | | | +--------+ + + + [...] | | | | | | [place] [address] | | | | | | [phone] | | | | | | | | +--------+ + + + + | 07/09/ | Virtual | Gastroenterology | Osito Bowen | | 2019 | Office | | MD [address] | | | | Visit | | [place] [address] | | | | | | [phone] | | | | | | | | +--------+ + + + + documented as of this encounter Visit Diagnoses Not on filedocumented in this encounter"
--- OUTSIDE RECORDS SUMMARY | ~2020-05-23 | XMS | Encounter Summary ---
Demographics + + + | Address | [address] | | | [place] [address] | + + + | Home Phone [...] | [place] | | | | | [address] | | + + + + + Care Team Providers + +------+ + | Care Lead Java Software Engineer Name | Role | Phone | [...] | | remicade-wee | Lucrecia, | [address] | | | | | k 0 | CABBAGE SALTER [address] | [place], | | | | | Procedures | [address] | [place] [address] | | | | | [place] | [address] | Phone: | | | | | INFLIXIMAB | [place], | [phone] | | | | | INJECTION, | [place] [address] | Fax: | | | | | 10 MG [place] IV | Phone: | [phone] | | | | | INFUSION, | [phone] | | | | | | THERAP/PROPH | Fax: | | | | | | /[place] | [phone] | | | | | | ITIAL,1ST [...] + + | 05/28/ | Hospital | [facility] | [facility], | Ulcerative colitis, | | 2013 | Encounter | MED CTR OP INFUSION | KYRA Singer [address] | with rectal bleeding | | | | [address] | [address] | ([facility]) (Primary Dx) | | | | [place], [place] | [place], [place] | | | | | [address] | [address] | | | | | [phone] | | | +--------+ + + + [...] 2019 | Office | | [address] | | | | Visit | | [place] | | | | | | [place] [address] | | | | | | [phone] | | | | | | | | +--------+ + + + + | 07/09/ | Virtual | Gastroenterology | Osito Bowen | | 2019 | Office | | MD Jonathan [address] | | | | Visit | | [place] [address] | | | | | | [phone] | | | | | | | [...]
--- OUTSIDE RECORDS SUMMARY | ~2020-05-23 | XMS | Encounter Summary ---
Demographics + + + | Address | [address] | | | [place] [address] | + + + | Home Phone [...] + | Marilyn Diallo | ECON | [place] | | | | | [address] | | + + + + + Care Team Providers + +------+ + | Care Physician Relations Representative Name | Role | Phone | [...] + + | 09/13/ | Refill | [facility] | Osito Bowen | Medication Refill | | 2019 | | GASTROENTEROLOGY | MD Jonathan [address] | | | | | [address] | [place] [address] | | | | | [place], [place] | [phone] | | | | | [address] | | | | | | [phone] | | | +--------+--------+ + + + [...] | | | | | | [place] [address] | | | | | | [phone] | | | | | | | | +--------+ + + + + | 07/09/ | Virtual | Gastroenterology | Osito Bowen | | 2019 | Office | | MD Jonathan [address] | | | | Visit | | [place] [address] | | | | | | [phone] | | | | | | | | +--------+ + + + + documented as of this encounter Visit Diagnoses Not on filedocumented in this encounter"
--- OUTSIDE RECORDS SUMMARY | ~2020-05-23 | XMS | Encounter Summary ---
Demographics + + + | Address | [address] | | | [place] [address] | + + + | Home Phone [...] [place] | | | | | [address] | | + + + + + Care Team Providers + +------+ + | Care Workers Compensation Analyst Name | Role | Phone | [...] Specialty | Gastroenterol | Diagnoses | | [place], | | | Services | ogy | Ulcerative | [place], | [place] | | | Required | | colitis with | Lucrecia, | MD Bryon | | | | | | [employer] [address] | [address] | | | | | complication | [address] | [address]VE | | | | | , | [address] | [place], [place] | | | | | unspecified | [place], | [address] | | | | | location | [place] [address] | Phone: | | | | | ([facility]) | Phone: | [phone] | | | | | Anemia, | [phone] | Fax: | | | | | unspecified | Fax: | [phone] | | | | | | [phone] | | +--------+ + + + + [...] unspecified location | | | | [address] [place], [place] | [place], [place] | ([facility]) (Primary Dx); | | | | [address] | [address] | Anemia, unspecified | | | | [phone] | | | +--------+ + + + [...] - 03/11/2016 8:54 AM PDTEntered referral to [facility] t[facility] for UC and anemia evaluation. [facility] does not accept [employer]'s insurance--referral there closed. Spoke with Barbie at [facility], and she said to fax all records/demos to Referral depart ment at fax # [phone] once it has been authorized. Gela faxed [...] | | | | | | [place] [address] | | | | | | [phone] | | | | | | | | +--------+ + + + + | 07/09/ | Virtual | Gastroenterology | Osito Bowen | | | 2019 | Office | | MD Jonathan [address] | | | | Visit | | [place] [address] | | | | | | [phone] | | | | | | | [...] Location | | | | | | ([facility]) Anemia, | | | | | | unspecified | | + + +--------+ + + documented as of this encounter Visit Diagnoses + + | Diagnosis | + + | Ulcerative colitis with complication, unspecified location (HCC) - Primary | + + | Anemia, unspecified | + + documented in this encounter"
--- OUTSIDE RECORDS SUMMARY | ~2020-05-23 | XMS | Encounter Summary ---
Demographics + + + | Address | [address] | | | [place] [address] | + + + | Home Phone [...] [place] | | | | | [address] | | + + + + + Care Team Providers + +------+ + | Care Bore Miner Operator Name | Role | Phone | [...] + + | 07/26/ | Telephone | [facility] | [facility], | Ulcerative Colitis | | 2013 | | GASTROENTEROLOGY | KYRA Singer [address] | | | | | [address] [place] | [address] | | | | | [address] [place], [place] | [place] | | | | | [address] | [address] | | | | | [phone] | | | +--------+ + + + [...] 07/31/2014 4:12 PM PDTPatient called back and siriu led for 8:15am tomorrow with Dr. Hurst. elephone Encounter - Ksaia Rooney - 07/31/2014 2:20 PM PDTLeft voicemail to s ee if patient can come into see Dr. Hurst at 8:15 on 08/01/14. elephone Encounter - Graciela Narayanan [employer] - 07/31/2014 10:03 AM PDTSpoke to patient, she would like orders sent to [facility] . eleph one Encounter - Graciela Narayanan Master of Arts - 07/31/2014 9:28 AM PDTLeft message for Ria to return call. Danielle would like her to have stool studies. Need to know where she woul d like orders sent? elephone Encounter - Lucrecia Blank ARNP - 07/31/2014 9:15 AM PDTOrders done. Thank you elephone Randy nter - Graciela Narayanan Master of Arts - [...] 11:05 AM PDTTelephone Encounter - Marvel son, Graciela, Master of Arts - 07/26/2014 4:26 PM [...] | | | | | | [place] [address] | | | | | | [phone] | | | | | | | | +--------+ + + + + | 07/09/ | Virtual | Gastroenterology | Osito Bowen | | | 2020 | Office | | MD Jonathan [address] | | | | Visit | | [place] [address] | | | | | | [phone] | | | | | | | [...]
--- OUTSIDE RECORDS SUMMARY | ~2020-05-23 | XMS | Encounter Summary ---
Demographics + + + | Address | [address] | | | [place] [address] | + + + | Home Phone [...] + + + | Author | [facility] | | | and [place] | + + + | Organization | [facility] | | | and [place] | + + + | Address | Unknown | + + + | Phone | Unavailable | + + + Support + + + + + | Name | Relationship | Address | Phone | + + + + + | Marilyn Diallo | ECON | [place] | | | | | [address] | | + + + + + Care Team Providers + +------+ + | Care Health Information Management Director Name | Role | Phone | [...] | | colitis | Lucrecia, | [address] | | | | | Procedures | DIVING INSTRUCTOR [address] | [place], | | | | | [place] IV | [address] | [place] [address] | | | | | INFUSION, | [address] | Phone: | | | | | THERAP/PROPH | [place], | [phone] | | | | | /[place] | [place] [address] | Fax: | | | | | ITIAL,1ST | Phone: | [phone] | | | | | HOUR DE | [phone] | | | | | | INFLIXIMAB | Fax: | | | | | | INJECTION, | [phone] | | | | | | 10 MG WSM | | | | | | | OP INF | | | | | | | REMICADE | | | +--------+--------+ + + + + Encounter Details +--------+ + + + + | Date | Type | Department | Care Team | Description | +--------+ + + + + | 02/18/ | Hospital | [facility] | [facility], | Ulcerative colitis, | | 2015 | Encounter | MED CTR OP INFUSION | KYRA Singer [address] | other complication | | | | [address] | [address] | ([facility]); Ulcerative | | | | [place], [place] | [place], [place] | colitis, with rectal | | | | [address] | [address] | bleeding ([facility]) | | | | [phone] | | | +--------+ + + + [...] + + + | Blood Pressure | 110/57 | 02/18/2015 2:55 PM | | | | | PDT | | + + + + + | Pulse | 69 | 02/18/2015 2:55 PM | | | | | PDT | | + + + + + | Temperature | 36.8 C (98.2 F) | 02/18/2015 2:55 PM | | | | | PDT | | + + + + + | Respiratory Rate | 16 | 02/18/2015 2:55 PM | | | | | PDT | | + + + + + | Oxygen Saturation | 95% | 02/18/2015 2:55 PM | | | | | PDT | | + + + + + | Inhaled Oxygen | - | - | | | Concentration | | | | + + + + + | Weight | 90.7 kg (200 lb) | 02/18/2015 12:11 PM | | | | | PDT [...] | 05/29/ | Virtual | Gastroenterology | [place], | | | 2019 | Office | | [address] | | | | Visit | | [place], | | | | | | [place] [address] | | | | | | [phone] | | | | | | | | +--------+ + + + + | 07/09/ | Virtual | Gastroenterology | Osito Bowen | | | 2019 | Office | | MD Jonathan [address] | | | | Visit | | [place] [address] | | | | | | [phone] | | | | | | | | +--------+ + + + + documented as of this encounter Visit Diagnoses + + | Diagnosis | + + | Ulcerative colitis, other complication | + + | Ulcerative colitis, with rectal bleeding | + + documented in this encounter Administered Medications + +--------+ +--------+------+------+ | Medication Order | MAR | Action | Dose | Rate | Site | | | Action | Date | | | | + +--------+ +--------+------+------+ | acetaminophen (TYLENOL) tablet | Given | 02/19/20 | 650 mg | | | | 650 mg 650 mg, Oral, ONCE, Wed | | 15 12:28 | | | | | 02/18/15 at 1230, For 1 dose, | | PM PDT | | | | | Administer 30 minutes prior to | | | | | | | inFLIXimab, | | | | | | + +--------+ +--------+------+------+ +---+---+ | | | +---+---+ + +-------+ +-------+---+---+ | diphenhydrAMINE (BENADRYL) | Given | 02/19/20 | 25 mg | | | | tablet 25 mg 25 mg, Oral, ONCE, | | 15 12:28 | | | | | 02/18/15 at 1230, For 1 dose, | | PM PDT | | | | | Administer 30 minutes prior to | | | | | | | inFLIXimab, | | | | | | + +-------+ +-------+---+---+ +---+---+ | | | +---+---+ + +---------+ +--------+-------+---+ | inFLIXimab (REMICADE) 500 mg in | New Bag | 02/19/20 | 500 mg | 125 | | | sodium chloride 0.9% 250 mL | | 15 12:52 | | mL/hr | | | infusion 500 mg (rounded from | | PM PDT | | | | | 453.5 mg = 5 mg/kg | | | | | | | 90.7 kg), Intravenous, | | | | | | | Administer over 2 Hours, ONCE, | | | | | | | 02/18/15 at 1300, For 1 dose, | | | | [...]
--- OUTSIDE RECORDS SUMMARY | ~2020-05-23 | XMS | Encounter Summary ---
Demographics + + + | Address | [address] | | | [place] [address] | + + + | Home Phone [...] [place] | | | | | [address] | | + + + + + Care Team Providers + +------+ + | Care Elastic Attacher Chainstitch Name | Role | Phone | + [...] + + | 04/28/ | Refill | [facility] | [facility], | Medication Refill | | 2015 | | GASTROENTEROLOGY | KYRA Singer [address] | | | | | [address] [place] | [address] | | | | | [address] [place] | [place] | | | | | [address] | [address] | | | | | [phone] | | | +--------+--------+ + + + [...] 2019 | Office | | KYRA [address] | | | | Visit | | [place] | | | | | | [place] [address] | | | | | | [phone] | | | | | | | | +--------+ + + + + | 07/09/ | Virtual | Gastroenterology | Osito Bowen | | 2019 | Office | | MD Jonathan [address] | | | | Visit | | [place] [address] | | | | | | [phone] | | | | | | | | +--------+ + + + + documented as of this encounter Visit Diagnoses Not on filedocumented in this encounter"
--- OUTSIDE RECORDS SUMMARY | ~2020-05-23 | XMS | Encounter Summary ---
Demographics + + + | Address | [address] | | | [place] [address] | + + + | Home Phone [...] [place] | | | | | [address] | | + + + + + Care Team Providers + +------+ + | Care Perinatal Tech Name | Role | Phone | [...] + + | 08/02/ | Telephone | [facility] | Edd Hurst, | Appointment | | 2013 | | GASTROENTEROLOGY | MD [address] | (schedule follow up | | | | [address] | [address] [place], | appt) | | | | [address] [place], [place] | [place] [address] | | | | | [address] | [phone] | | | | | [phone] | | | +--------+ + + + [...] would like order [facility] be [facility] [place], orders sent, also patient to ayana carr a follow up appt the week of [...] 2019 | Office | | KYRA [address] | | | | Visit | | [place] | | | | | | [place] [address] | | | | | | [phone] | | | | | | | | +--------+ + + + + | 07/09/ | Virtual | Gastroenterology | Osito Bowen | | 2019 | Office | | MD Yenifer Castillo | | | | Visit | | [place] [address] | | | | | | [phone] | | | | | | | | +--------+ + + + + documented as of this encounter Visit Diagnoses Not on filedocumented in this encounter"
--- OUTSIDE RECORDS SUMMARY | ~2020-05-23 | XMS | Encounter Summary ---
Demographics + + + | Address | [address] | | | [place] [address] | + + + | Home Phone [...] | [place] | | | | | [address] | | + + + + + Care Team Providers + +------+ + | Care Manufacturing Controller Name | Role | Phone | + [...] + + | 05/21/ | Refill | [facility] | Osito Bowen | Medication Refill | | 2019 | | GASTROENTEROLOGY | MD Jonathan [address] | | | | | [address] | [place] [address] | | | | | [place], [place] | [phone] | | | | | [address] | | | | | | [phone] | | | +--------+--------+ + + + [...] No more RF. Needs an appointment for [facility] erative colitis. I will place labs to be done before appointment they will include stool fidelia ting to check the IBD. Thanks Indigo NP Tetezp jagruti Encounter - Ayah Berkowitz, [place] Man - 05/22/2020 4:21 PM Julio, bessy higgins please refill patient medication she is completely [...] | | | | | | [place] [address] | | | | | | [phone] | | | | | | | | +--------+ + + + + | 07/09/ | Virtual | Gastroenterology | Osito Bowen | | 2019 | Office | | MD Jonathan [address] | | | | Visit | | [place] [address] | | | | | | [phone] | | | | | | | [...] Ulcerative colitis with other complication, unspecified location ([facility]) - Primary | + + documented in this encounter"
--- OUTSIDE RECORDS SUMMARY | ~2020-05-23 | XMS | Encounter Summary ---
Demographics + + + | Address | [address] | | | [place] [address] | + + + | Home Phone [...] [place] | | | | | [address] | | + + + + + Care Team Providers + +------+ + | Care Deputy Harbormaster Name | Role | Phone | + [...] + + | 12/12/ | Telephone | [facility] | [facility], | [facility] | | 2014 | | GASTROENTEROLOGY | KYRA Singer [address] | | | | | [address] [place] | [address] | | | | | [address] [place], [place] | [place], [place] | | | | | [address] | [address] | | | | | [phone] | | | +--------+ + + + [...] Telephone Encounter - Graciela Narayanan Master of Locai - 12/17/2014 11:56 AM PDTCalled cayden rendon again, left message for her to call. Sent her a letter per Danielle that she is to contact us. el ephone Encounter - Graciela Narayanan Master of Locai - 12/13/2014 9:31 AM PSTLeft another message [...] | | | | | | [place] [address] | | | | | | [phone] | | | | | | | | +--------+ + + + + | 07/09/ | Virtual | Gastroenterology | Osito Bowen | | | 2019 | Office | | MD Jonathan [address] | | | | Visit | | [place] [address] | | | | | | [phone] | | | | | | | | +--------+ + + + + documented as of this encounter Visit Diagnoses Not on filedocumented in this encounter"
--- OUTSIDE RECORDS SUMMARY | ~2020-05-23 | XMS | Encounter Summary ---
Demographics + + + | Address | [address] | | | [place] [address] | + + + | Home Phone | | + + + | Preferred Language | Unknown | + + + | Marital Status | Single | + + + | Episcopal Affiliation | 1013 | + + + [...] [place] | | | | | [address] | | + + + + + Care Team Providers + +------+ + | Care Cardiology Consultants Name | Role | Phone | + +------+ + | Carlos Díaz NP | PCP | | + +------+ + Encounter Details +--------+ + + + + | Date | Type | Department | Care Team | Description | +--------+ + + + + | 01/09/ | Abstract | [facility] [place] | [facility], | | | 2016 | | GASTROENTEROLOGY | Lucrecia KYRA [address] | | | | | [address] | [address] | | | | | [address] [place], [place] | [place], [place] | | | | | [address] | [address] | | | | | [phone] | | | +--------+ + + + [...] 2019 | Office | | [address] | | | | Visit | | [place], | | | | | | [place] [address] | | | | | | [phone] | | | | | | | | +--------+ + + + + | 07/09/ Virtual | Gastroenterology | Osito Bowen | | | 2020 | Office | | MD Jonathan [address] | | | | Visit | | [place] [address] | | | | | | [phone] | | | | | | | | +--------+ + + + + documented as of this encounter Procedures + +--------+ + + + | Procedure Name | Priori | Date/Time | Associated Diagnosis | Comments | | | ty | | | | + +--------+ + + + | EXTERNAL LAB: JELANI | Routin | 07/02/2015 | | Results [...]
--- OUTSIDE RECORDS SUMMARY | ~2020-05-23 | XMS | Encounter Summary ---
Demographics + + + | Address | [address] | | | [place] [address] | + + + | Home Phone [...] | [place] | | | | | [address] | | + + + + + Care Team Providers + +------+ + | Care Blackjack Dealer Name | Role | Phone | + [...] + + | 07/26/ | Telephone | [facility] | [facility], | Other | | 2012 | | GASTROENTEROLOGY | KYRA Singer [address] | | | | | [address] | [address] | | | | | [address] [place], [place] | [place], [place] | | | | | [address] | [address] | | | | | [phone] | | | +--------+ + + + [...] 07/26/2013 3:59 PM PDTCalled pharmacy back anthony louise has already started to taper her medication so quantity is right, Janay in pharmacy shi brown. ele phone Encounter - Valeriy Potter - 07/26/2013 3:48 PM PDTPharmacy called with questions about quantity of medication. Please call [phone] signed by Valeriy barr at 07/26/2013 3:49 [...] | | | | | | [place] [address] | | | | | | [phone] | | | | | | | | +--------+ + + + + | 07/09/ | Virtual | Gastroenterology | Osito Bowen | | | 2019 | Office | | MD Jonathan [address] | | | | Visit | | [place] [address] | | | | | | [phone] | | | | | | | | +--------+ + + + + documented as of this encounter Visit Diagnoses Not on filedocumented in this encounter"
--- OUTSIDE RECORDS SUMMARY | ~2020-05-23 | XMS | Encounter Summary ---
Demographics + + + | Address | [address] | | | [place] [address] | + + + | Home Phone [...] | Marilyn Imani | ECON | [place] | | | | | [address] | | + + + + + Care Team Providers + +------+ + | Care Surveyor'S Assistant Name | Role | Phone | + +------+ + PCP | Unavailable | + +------+ + Encounter Details +--------+ + + + + | Date | Type | Department | Care Team | Description | +--------+ + + + + | 01/04/ | Hospital [facility] | Robi Rubin MD | | | 2006 - | Encounter | [facility] | [facility] | | | | | [facility] [address] | [place], [place] | | | 01/06/ | | [place], | [address] | | | 2006 | | [place] [address] | | | | | | [phone] | | | +--------+ + + + [...] | | | | | | [place] [address] | | | | | | [phone] | | | | | | | | +--------+ + + + + | 07/09/ | Virtual | Gastroenterology | Osito Bowen | | 2019 | Office | | MD Jonathan [address] | | | | Visit | | [place] [address] | | | | | | [phone] | | | | | | | | +--------+ + + + + documented as of this encounter Visit Diagnoses Not on filedocumented in this encounter"
--- OUTSIDE RECORDS SUMMARY | ~2020-05-23 | XMS | Encounter Summary ---
Demographics + + + | Address | [address] | | | [place] [address] | + + + | Home Phone | | + + + | Preferred Language | Unknown | + + + | Marital Status | Single | + + + | Adventism Affiliation | 1013 | + + + | Race | Unknown | + + + | Ethnic Group | Unknown | + + + Author + + + | Author | [facility] | | | and [place] | + + + | Organization | [facility] | | | and [place] | + + + | Address | Unknown | + + + | Phone | Unavailable | + + + Support + + + + + | Name | Relationship | Address | Phone | + + + + + | Marilyn Diallo | ECON | [place] | | | | | [address] | | + + + + + Care Team Providers + +------+ + | Care Geophysical Support Specialist Name | Role | Phone | [...] | 12/10/ | Refill | [facility] [place] | Edd Hurst, | Medication Refill | | 2014 | | GASTROENTEROLOGY | MD [address] | | | | | [address] | [address] [place], | | | | | [address] [place], [place] | [place] [address] | | | | | [address] | [phone] | | | | | [phone] | | | +--------+--------+ + + + [...] | | | | | | [place] [address] | | | | | | [phone] | | | | | | | | +--------+ + + + + | 07/09/ | Virtual | Gastroenterology | Osito Bowen | | | 2019 | Office | | MD Yenifer Castillo | | | | Visit | | [place] [address] | | | | | | [phone] | | | | | | | | +--------+ + + + + documented as of this encounter Visit Diagnoses Not on filedocumented in this encounter"
--- OUTSIDE RECORDS SUMMARY | ~2020-05-23 | XMS | Encounter Summary ---
Demographics + + + | Address | [address] | | | [place] [address] | + + + | Home Phone [...] [place] | | | | | [address] | | + + + + + Care Team Providers + +------+ + | Care Bottle Label Inspector Name | Role | Phone | [...] | Refill | [facility] [place] | [facility], | Medication Refill | | 2013 | | GASTROENTEROLOGY | KYRA Singer [address] | | | | | [address] | [address] | | | | | [address] [place], [place] | [place], [place] | | | | | [address] | [id number] | | | | | [phone] | | | +--------+--------+ + + + [...] | | | | | | [place] [address] | | | | | | [phone] | | | | | | | | +--------+ + + + + | 07/09/ | Virtual | Gastroenterology | Osito Bowen | | | 2019 | Office | | MD Jonathan [address] | | | | Visit | | [place] [address] | | | | | | [phone] | | | | | | | | +--------+ + + + + documented as of this encounter Visit Diagnoses Not on filedocumented in this encounter"
--- OUTSIDE RECORDS SUMMARY | ~2020-05-23 | XMS | Encounter Summary ---
Demographics + + + | Address | [address] | | | [place] [address] | + + + | Home Phone [...] | [place] | | | | | [address] | | + + + + + Care Team Providers + +------+ + | Care Frontload Driver Name | Role | Phone | [...] other complication | | | | [address] [place], [place] | [place], [place] | [facility] | | | | [address] | [address] | | | | | [phone] | | | +--------+ + + + [...] | | | | | | [place] [address] | | | | | | [phone] | | | | | | | | +--------+ + + + + | 07/09/ | Virtual | Gastroenterology | Osito Bowen | | | 2019 | Office | | MD Jonathan [address] | | | | Visit | | [place] [address] | | | | | | [phone] | | | | | | | | +--------+ + + + + documented as of this encounter Visit Diagnoses + + | Diagnosis | + + | Ulcerative colitis, unspecified with other complication (HCC) | + + documented in this encounter"
--- OUTSIDE RECORDS SUMMARY | ~2020-05-23 | XMS | Encounter Summary ---
Demographics + + + | Address | [address] | | | [place] [address] | + + + | Home Phone [...] | [place] | | | | | [address] | | + + + + + Care Team Providers + +------+ + | Care Product Builder Name | Role | Phone | [...] + + | 01/09/ | Refill | [facility] | Osito Bowen | Medication Refill | | 2019 | | GASTROENTEROLOGY | MD Jonathan [address] | | | | | [address] | [place] [address] | | | | | [place], [place] | [phone] | | | | | [address] | | | | | | [phone] | | | +--------+--------+ + + + [...] Osito Bowen MD - 01/10/2020 11:04 AM Odettell refill prescrip tion but she needs to [...] | | | | | | [place] [address] | | | | | | [phone] | | | | | | | | +--------+ + + + + | 07/09/ | Virtual | Gastroenterology | Osito Bowen | | 2019 | Office | | MD Jonathan [address] | | | | Visit | | [place] [address] | | | | | | [phone] | | | | | | | | +--------+ + + + + documented as of this encounter Visit Diagnoses Not on filedocumented in this encounter"
--- OUTSIDE RECORDS SUMMARY | ~2020-05-23 | XMS | Encounter Summary ---
Demographics + + + | Address | [address] | | | [place] [address] | + + + | Home Phone [...] Author + + + | Author | [facility] | | | and [place] | + + + | Organization | [facility] | | | and [place] | + + + | Address | Unknown | + + + | Phone | Unavailable | + + + Support + + + + + | Name | Relationship | Address | Phone | + + + + + | Marilyn Diallo | ECON | [place] | | | | | [address] | | + + + + + Care Team Providers + +------+ + | Care Raisin Washer Name | Role | Phone | + [...] + + | 06/14/ | Telephone | [facility] | [facility], | [facility] | | 2013 | | GASTROENTEROLOGY | KYRA Singer [address] | | | | | [address] | [address] | | | | | [address] [place], [place] | [place], [place] | | | | | [address] | [address] | | | | | [phone] | | | +--------+ + + + [...] 1606 ------ Message from: MONIKA KNOX Created: May 08, 2014 1148 Regarding: needs an office appt Call patient [...] | | | | | | [place] [address] | | | | | | [phone] | | | | | | | | +--------+ + + + + | 07/09/ | Virtual | Gastroenterology | Osito Bowen | | | 2019 | Office | | MD Jonathan [address] | | | | Visit | | [place] [address] | | | | | | [phone] | | | | | | | | +--------+ + + + + documented as of this encounter Visit Diagnoses Not on filedocumented in this encounter"
--- OUTSIDE RECORDS SUMMARY | ~2020-05-23 | XMS | Encounter Summary ---
Demographics + + + | Address | [address] | | | [place] [address] | + + + | Home Phone [...] [place] | | | | | [address] | | + + + + + Care Team Providers + +------+ + | Care Dry House Tender Name | Role | Phone | [...] + + | 11/27/ | Surgery | [facility] | Aris Schmid MD | COLONOSCOPY | | 2015 | | MED CTR [facility] OP | [address] | | | | | [address] | [facility] [place] | | | | | [place], [place] | [address] | | | | | [address] | [phone] | | | | | [phone] | | | +--------+---------+ + + + [...] the physician who did your procedure at [phone] if you have any questions or experience any of the following: ? Increasing abdominal pain, nausea, or vomiting. ? Chills and fever over 101F. ? New abdominal swelling or bloating. ? Signs of rectal bleeding (black or red stool. If you cannot get a hold of your physician, then call the [facility] [phone] . If necessary, report to the Emergency Department at [facility]. Quit smoking: If you smoke or [...] Laterality: N/A; Surgeon: Aris Schmid MD; Location: [facility] Family History Problem Relation Age of Onset [...] office or go to ER . Cc: Carols Díaz This note was dictated using voice [...] | | | | | | [place] [address] | | | | | | [phone] | | | | | | | | +--------+ + + + + | 07/09/ | Virtual | Gastroenterology | Osito Bowen | | | 2020 | Office | | MD Jonathan [address] | | | | Visit | | [place] [address] | | | | | | [phone] | | | | | | | [...] comorbidity) | | | | | | ([facility]) | | + +--------+ + + [...] 11/27/2014 | PROVATION | | 11:01 AMMRN: [id number] #: [id number] of : | | | 1980Admit Type: AmbulatoryAge: 34Room: [facility] 02Gender: FemaleNote | | | Status: FinalizedAttending MD: Aris Schmid, [facility]cedure: | | | ColonoscopyIndications: Diarrhea, | [...] the nurse | | | and the sow farm technician in the pre-procedure area in the [...] AMScope | | | Out: 11:32:52 AM [facility], [address] | | | [place] [address] | | | - Continue present medications. [...] |Scope Out: 11:32:52 AM | | | [facility], [address] [facility], [place], [place] | | | [address] | | + + -+ + +---------+ [...] + + + + + | [facility] | [address] | [place], [place] | [phone] | | [facility] | | [address] | | | LABORATORY | | | [...]
--- OUTSIDE RECORDS SUMMARY | ~2020-05-23 | XMS | Encounter Summary ---
Demographics + + + | Address | [address] | | | [place] [address] | + + + | Home Phone | | + + + | Preferred Language | Unknown | + + + | Marital Status | Single | + + + | Hoahaoism Affiliation | 1013 | + + + | Race | Unknown | + + + | Ethnic Group | Unknown | + + + Author + + + | Author | [facility] | | | and [place] | + + + | Organization | [facility] | | | and [place] | + + + | Address | Unknown | + + + | Phone | Unavailable | + + + Support + + + + + | Name | Relationship | Address | Phone | + + + + + | Marilyn Diallo | ECON | [place] | | | | | [address] | | + + + + + Care Team Providers + +------+ + | Care Program Counselor Name | Role | Phone | [...] + | 10/31/ | Telephone | [facility] | [place], | Other | | 2014 | | GASTROENTEROLOGY | KYRA Singer [address] | | | | | [address] | [address] | | | | | [address] [place], [place] | [place], [place] | | | | | [address] | [address] | | | | | [phone] | | | +--------+ + + + [...] BLANK on: 11/07/2014 08:45 Modules accepted: Orders elephone Grayson y[place] - Lucrecia Blank ARNP - 11/07/2014 8:45 AM PSTOrders done elephone Encfiona miles - Graciela Narayanan, Master of Arts - 10/31/2014 1:30 PM PSTSpoke to Ria, she alread y saw her PCP and didn't know what labs Danielle wanted. Told her I would ask Danielle to put in ord ers for her and will send them to [facility] [place]. Patient verbalized understanding. (patient needs cbc,crp,esr) also [...] | | | Visit | | [address] [place], | | | | | | [place] [address] | | | | | | [phone] | | | | | | | | +--------+ + + + + | 07/09/ | Virtual | Gastroenterology | Osito Bowen | | | 2020 | Office | | MD Jonathan [address] | | | | Visit | | [place] [address] | | | | | | [phone] | | | | | | | [...]
--- OUTSIDE RECORDS SUMMARY | ~2020-05-23 | XMS | Encounter Summary ---
Demographics + + + | Address | [address] | | | [place] [address] | + + + | Home Phone [...] [place] | | | | | [address] | | + + + + + Care Team Providers + +------+ + | Care Manufacturing Test Engineer Name | Role | Phone | + +------+ + | Carlos Díaz NP | PCP | | + +------+ + Encounter Details +--------+ + + + + | Date | Type | Department | Care Team | Description | +--------+ + + + + | 08/05/ | Documentati | [facility] [place] | [facility], | | | 2014 | on | GASTROENTEROLOGY | KYRA Singer [address] | | | | | [address] [place] | [address] | | | | | [address] [place], [place] | [place], [place] | | | | | [address] | [address] | | | | | [phone] | | | +--------+ + + + [...] of this encounter Progress Notes Graciela Narayanan, Clothing Patternmaker - 08/05/2015 1:47 PM PDTReceived Prior Authorization Approval for patient to get her Humira 40 mg/0.8ML syringes per 28 day supply. The prior au thorization approval is effective from May 24, 2015 through May 24, 2016. Reference rob gomezer [address]. From [facility] ([facility] documented in this encoun ter Plan of Treatment +--------+ + + + + | Date | Type | Specialty | Care Team | Description | +--------+ + + + + | 05/29/ | Virtual | Gastroenterology | Natalei, | | | 2019 | Office | | [address] | | | | Visit | | [place] | | | | | | [place] [address] | | | | | | [phone] | | | | | | | | +--------+ + + + + | 07/09/ | Virtual | Gastroenterology | Osito Bowen | | | 2019 | Office | | MD Yenifer Castillo | | | | Visit | | [place] [address] | | | | | | [phone] | | | | | | | | +--------+ + + + + documented as of this encounter Visit Diagnoses Not on filedocumented in this encounter"
--- OUTSIDE RECORDS SUMMARY | ~2020-05-23 | XMS | Encounter Summary ---
Demographics + + + | Address | [address] | | | [place] [address] | + + + | Home Phone [...] [place] | | | | | [address] | | + + + + + Care Team Providers + +------+ + | Care Construction Cost Estimator Name | Role | Phone | + [...] | | [address] | MD [address] | | | | | [address] | [address] [place] | | | | | [place], [place] | [address] | | | | | [address] | | | | | | [phone] | | | +--------+ + + + [...] | | | | | | [place] [address] | | | | | | [phone] | | | | | | | | +--------+ + + + + | 07/09/ | Virtual | Gastroenterology | Osito Bowen | | | 2020 | Office | | MD Jonathan [address] | | | | Visit | | [place] [address] | | | | | | [phone] | | | | | | | [...] | | | 0.73 m/s MV Dec [place]: 5.74 m/s2 MV DecT: 220.15 ms MV E | | | Jordan: 1.26 m/s MV E/A Ratio: 1.71 E/E' Sept: 10.36 E' Lat: | | | 0.13 m/s E' Sept: 0.12 m/s RAP: 15 mmHg RV S': 0.18 m/s | | | RVSP: 42.23 mmHg TR maxP.23 mmHg TR Vmax: 2.60 m/s | | | Feeder Loader: Authenticated by: Shayla Eastman MD Report | | | Date/Time: -- [id number]:40 | | + + + + + [...] mlLAESV Index (A-L): 22.91 ml/m2LAAs A2C: 15.64 [id number] A-L A2C: 44.31 | | mlLAESV MOD A2C: 43.57 mlLALs A2C: 4.68 cmLAAs A4C: 15.45 [id number] A-L A4C: | | 42.63 mlLAESV MOD A4C: 35.71 mlLALs A4C: 4.75 cmRAAs: 18.18 [id number] A-L: 51.01 | | mlRAESV MOD: 50.60 mlRALs: 5.50 cmTAPSE: 2.69 cmAV Env.Ti: 282.63 msAV maxPG: | | 12.73 mmHgAV meanP.50 mmHgAV Vmax: 1.78 m/Kirk Vmean: 1.30 m/Kirk VTI: 36.76 | | cmAVA Vmax: 2.84 cm2AVA (VTI): 2.79 ip0DODI Vmax: 0.00 cm2/m2AVAI (VTI): 0.00 | | cm2/m2LVOT Env.Ti: 288.28 msLVOT maxP.28 mmHgLVOT meanP.09 mmHgLVSI Dopp: | | 53.74 ml/m2LVSV Dopp: 102.64 mlLVOT Vmax: 1.34 m/sLVOT Vmean: 0.94 m/sLVOT VTI: | | 27.25 cmMV A [place]: 0.73 m/sMV Dec [place]: 5.74 m/s2MV DecT: 220.15 msMV E [place]: | | 1.26 m/sMV E/A Ratio: 1.71E/E' Sept: 10.36E' Lat: 0.13 m/sE' Sept: 0.12 m/sRAP: | | 15 mmHgRV S': 0.18 m/sRVSP: 42.23 mmHgTR maxP.23 mmHgTR Vmax: 2.60 m/s | | Feeder Loader:Authenticated by: Shayla Eastman [facility] Date/Time: -- | | [id number]:25:40 IMPRESSION: 1. Overall left ventricular systolic function [...] A [place]: 0.73 m/s | |MV Dec [place]: 5.74 m/s2 | |MV DecT: 220.15 ms | |MV E [place]: 1.26 m/s | |MV E/A Ratio: 1.71 | |E/E' Sept: 10.36 | |E' Lat: 0.13 m/s | |E' Sept: 0.12 m/s | |RAP: 15 mmHg | |RV S': 0.18 m/s | |RVSP: 42.23 mmHg | |TR maxP.23 mmHg | |TR Vmax: 2.60 m/s | | | |Feeder Loader: | |Authenticated by: Shayla Eastman MD | |Report Date/Time: -- [id number]:40 | | | |IMPRESSION: | |1. Overall left ventricular systolic function is normal with, an EF between 60 - 65 %. | |2. The right ventricle is normal in size and function. | |3. There is no pericardial effusion. | + + documented in this encounter Visit Diagnoses Not on filedocumented in this encounter"
--- OUTSIDE RECORDS SUMMARY | ~2020-05-23 | XMS | Encounter Summary ---
Demographics + + + | Address | [address] | | | [place] [address] | + + + | Home Phone [...] [place] | | | | | [address] | | + + + + + Care Team Providers + +------+ + | Care Brooch And Bracelet Maker Name | Role | Phone | + +------+ + | Lilliana Wheeler | PCP | | | FOUNDER AND CEO | | | + +------+ + Reason [...] + + | 11/29/ | Telephone | [facility] | [facility], | Other (Prior | | 2013 | | GASTROENTEROLOGY | KYRA Singer [address] | authorization) | | | | [address] [place] | [address] | | | | | [address] [place] | [place] | | | | | [address] | [address] | | | | | [phone] | | | +--------+ + + + [...] 11/29/2013 12:00 PM PSTSent auth orization for [place] to [place] from [facility]. It has been approved from November 23, 2013 unt November 23, 2014. Called patient to let [...] | | | | | | [place] [address] | | | | | | [phone] | | | | | | | | +--------+ + + + + | 07/09/ | Virtual | Gastroenterology | Osito Bowen | | 2019 | Office | | MD Jonathan [address] | | | | Visit | | [place] [address] | | | | | | [phone] | | | | | | | | +--------+ + + + + documented as of this encounter Visit Diagnoses Not on filedocumented in this encounter"
--- OUTSIDE RECORDS SUMMARY | ~2020-05-23 | XMS | Encounter Summary ---
Demographics + + + | Address | [address] | | | [place] [address] | + + + | Home Phone [...] | [place] | | | | | [address] | | + + + + + Care Team Providers + +------+ + | Care Varnisher Plasticoater Name | Role | Phone | + [...] complications (HCC) | | | | [address] [place], [place] | [place], [place] | (Primary Dx) | | | | [address] | [address] | | | | | [phone] | | | +--------+ + + + [...] | 05/29/ | Virtual | Gastroenterology | Simba[place]Olivas, | | | 2019 | Office | | [address] | | | | Visit | | [place], | | | | | | [place] [address] | | | | | | [phone] | | | | | | | | +--------+ + + + + | 07/09/ | Virtual | Gastroenterology | Osito Bowen | | | 2019 | Office | | MD Jonathan [address] | | | | Visit | | [place] [address] | | | | | | [phone] | | | | | | | | +--------+ + + + + documented as of this encounter Visit Diagnoses + + | Diagnosis | + + | Ulcerative colitis, without complications - Primary | + + documented in this encounter"
--- OUTSIDE RECORDS SUMMARY | ~2020-05-23 | XMS | Clinical Summary ---
Demographics + + + | Address | [address] | | | [place] [address] | + + + | Home Phone [...] [place] | | | | | [address] | | + + + + + Care Team Providers + +------+ + | Care Die Cast Engineer Name | Role | Phone | [...] and 10/12 | 45 | 1 | 06/0 | | Activ | | (DELTASONE) 10 [...] Overview: Added automatically from request for surgery [id number] | + + + + + | [...] + + | 05/22/ | Telephone | Gastroenterology | Osito Bowen | Other | | 2019 | | | MD Jonathan | | +--------+ + + + + | 05/21/ | Refill | Gastroentercyrus | Osito Bowen | Medication Refill | | 2019 | | | MD Jonathan | | +--------+ + + + + | 03/07/ | Refill | Gastroentercyrus | Osito Bowen | Medication Refill | [...] Alive | | + +------+--------+ + | Father | | | | + +------+--------+ + | Mother | | Alive | | + +------+--------+ + | Mother | | | | + +------+--------+ + | Sister [...] | | | | | | [place] [address] | | | | | | [phone] | | | | | | | | +--------+ + + + + | 07/09/ | Virtual | Gastroenterology | Osito Bowen | | 2019 | Office | | MD Jonathan [address] | | | | Visit | | [place] [address] | | | | | | [phone] | | | | | | | [...] | [employer] | MODA | [id number] | 11/13/19 | [phone] | | Medica | | MEDICAID HMO | HEALTH | | 14-Pre | 1 | | id | | | MDCD | | sent | | | | | | HMO OR | | | | | | + +--------+ +--------+ +---------+--------+ | [employer] | MOD[employer] | [id number] | | [phone] | | Medica | | MEDICAID HMO [...] Person | Self | [birth year] | [address] | | | al/Fam | | 1980 | [phone] | [place] | | | [place]ia | | | 4 (Home) | [address] | | | | | | [phone] | | | | | | | 1 (Work) | | + +--------+ +--------+ + + | Ria Hastings | Person | Self | [birth year] | | [address] | | | al/Antonio | | 1980 | [phone] | [place] | | | [place]ia | | | 4 (Home) | [address] | + +--------+ +--------+ + + Advance Directives + + + + + | Type | Date Recorded | Patient | Explanation | | | | Aquatic Life Laborer | | + + + + + | Power of | | | | | Criminal Profiler | | | | + + + + + | Advance | 11/27/2014 8:47 | | | | Directive | AM | | | + + + + +
--- OUTSIDE RECORDS SUMMARY | ~2020-05-23 | XMS | Encounter Summary ---
Demographics + + + | Address | [address] | | | [place] [address] | + + + | Home Phone [...] | [place] | | | | | [address] | | + + + + + Care Team Providers + +------+ + | Care Clerk Funeral Detail Name | Role | Phone | + [...] + + | 05/08/ | Telephone | [facility] [place] | [facility], | Other (needs appt | | 2013 | | GASTROENTEROLOGY | KYRA Singer [address] | after induction dose | | | | [address] [place] | [address] | of remicade) | | | | [address] [place], [place] | [place] | | | | | [address] | [address] | | | | | [phone] | | | +--------+ + + + [...] for may.14 for her 1st remicade infusion, Jnenifer would like to see patient after the [...] | 2019 | Office | | Indigo Castillo [facility] [address] | | | | Visit | | [place], | | | | | | [place] [address] | | | | | | [phone] | | | | | | | | +--------+ + + + + | 07/09/ | Virtual | Gastroenterology | Osito Bowen | | | 2019 | Office | | MD Jonathan [address] | | | | Visit | | [place] [address] | | | | | | [phone] | | | | | | | | +--------+ + + + + documented as of this encounter Visit Diagnoses Not on filedocumented in this encounter"
--- OUTSIDE RECORDS SUMMARY | ~2020-05-23 | XMS | Encounter Summary ---
Demographics + + + | Address | [address] | | | [place] [address] | + + + | Home Phone [...] [place] | | | | | [address] | | + + + + + Care Team Providers + +------+ + | Care Inspector Tool Name | Role | Phone | + [...] + + | 08/16/ | Telephone | [facility] | Osito Bowen | Follow-up (08/17/19 | | 2019 | | GASTROENTEROLOGY | MD Jonathan [address] | reschedule) | | | | [address] | [place] [address] | | | | | [place], [place] | [phone] | | | | | [address] | | | | | | [phone] | | | +--------+ + + + [...] transfer the call to a luna ventura oracle identity management consultant was caller made aware that if at [...] | | | | | | [place] [address] | | | | | | [phone] | | | | | | | | +--------+ + + + + | 07/09/ | Virtual | Gastroenterology | Osito Bowen | | | 2020 | Office | | MD Jonathan [address] | | | | Visit | | [place] [address] | | | | | | [phone] | | | | | | | | +--------+ + + + + documented as of this encounter Visit Diagnoses Not on filedocumented in this encounter"
--- OUTSIDE RECORDS SUMMARY | ~2020-05-23 | XMS | Encounter Summary ---
Demographics + + + | Address | [address] | | | [place] [address] | + + + | Home Phone | | + + + | Preferred Language | Unknown | + + + | Marital Status | Single | + + + | Pentecostalism Affiliation | 1013 | + + + [...] [place] | | | | | [address] | | + + + + + Care Team Providers + +------+ + | Care Speech And Language Clinician Name | Role | Phone | + +------+ + | Carlos Díaz NP | PCP | | + +------+ + Encounter Details +--------+ + + + + | Date | Type | Department | Care Team | Description | +--------+ + + + + | 04/17/ | Documentati | [facility] [place] | [facility], | | | 2016 | on | GASTROENTEROLOGY | KYRA Singer [address] | | | | | [address] [place] | [address] | | | | | [address] [place], [place] | [place], [place] | | | | | [address] | [address] | | | | | [phone] | | | +--------+ + + + [...] to HIM to fax all records to [facility] for 2nd opinion on UC documented [...] | | | | | | [place] [address] | | | | | | [phone] | | | | | | | | +--------+ + + + + | 07/09/ | Virtual | Gastroenterology | Osito Bowen | | | 2019 | Office | | MD Yenifer Castillo | | | | Visit | | [place] [address] | | | | | | [phone] | | | | | | | | +--------+ + + + + documented as of this encounter Visit Diagnoses Not on filedocumented in this encounter"
--- OUTSIDE RECORDS SUMMARY | ~2020-05-23 | XMS | Encounter Summary ---
Demographics + + + | Address | [address] | | | [place] [address] | + + + | Home Phone [...] + | Marilyn Diallo | ECON | [place] | | | | | [address] | | + + + + + Care Team Providers + +------+ + | Care Desktop Manager Name | Role | Phone | + +------+ + PCP | Unavailable | + +------+ + Encounter Details +--------+ + + + + | Date | Type | Department | Care Team | Description | +--------+ + + + + | 05/25/ | Hospital | [facility] | [facility], | | | 2010 | Encounter | MED CTR LABORATORY | KYRA Singer [address] | | | | | [address] [place] | [address] | | | | | [place], [place] | [place], [place] | | | | | [address] | [address] | | | | | [phone] | | | +--------+ + + + [...] | | | | | | [place] [address] | | | | | | [phone] | | | | | | | | +--------+ + + + + | 07/09/ | Virtual | Gastroenterology | Osito Bowen | | 2019 | Office | | MD Jonathan [address] | | | | Visit | | [place] [address] | | | | | | [phone] | | | | | | | [...] + | [facility] | [address] | [place] | [phone] | | [facility] | | [address] | | | - LABORATORY | | | | + + + + + | [facility] | [address] | [place], [place] | | | [facility] | | [address], [facility] | | | - LABORATORY [...] + | [facility] | [address] | [place], [place] | [phone] | | [facility] | | [address] | | | - LABORATORY | | | | + + + + + | [facility] | [address] | [place], [place] | | | [facility] | | [address] [place] [address] | | | - LABORATORY | | [...] + | [facility] | [address] | [place] | [phone] | | [facility] | | [address] | | | - LABORATORY | | | | + + + + + | [facility] | [address] | [place] | | | [facility] | | [id number] [place] [address] | | | - LABORATORY | | | | + + + + + documented in this encounter Visit Diagnoses Not on filedocumented in this encounter"
--- OUTSIDE RECORDS SUMMARY | ~2020-05-23 | XMS | Encounter Summary ---
Demographics + + + | Address | [address] | | | [place] [address] | + + + | Home Phone [...] | [place] | | | | | [address] | | + + + + + Care Team Providers + +------+ + | Care Binder Stripper Machine Name | Role | Phone | + +------+ + | Lilliana Wheeler | PCP | | | SOFTWARE RELEASE ENGINEER | | | + +------+ + Reason [...] [address] | | | | | ([facility]) | SOFTWARE RELEASE ENGINEER [address] | [place], | | | | | Procedures | [address] | [place] [address] | | | | | [place] | [address] | Phone: | | | | | COLONOSCOPY, | [place], | [phone] | | | | | DIAGNOSTIC | [place] [address] | Fax: | | | | | [place] | Phone: | [phone] | | | | | COLONOSCOPY, | [phone] | | | | | | BIOPSY | Fax: | | | | | | | [phone] | | +--------+ + + + + [...] | / | unspecified | Jennifer, | SOFTWARE RELEASE ENGINEER [address] | | | | Gastroenterol | [place] | SOFTWARE RELEASE ENGINEER [address] | [address] | | | | ogy | ulcerative | [address] | [address] [address] | | | | | (chronic) | [place], | [place], | | | | | colitis(556. | [place] [address] | [place] [address] | | | | | 6) (HCC) | Phone: | Phone: | | | | | Colitis/pt/ | [phone] | [phone] | | | | | moda | Fax: | Fax: | | | | | Procedures | [phone] | [phone] | | | | | OFFICE VISIT | | | | | | | REGULAR | | | +--------+--------+ + + + + Encounter Details +--------+---------+ + + + | Date | Type | Department | Care Team | Description | +--------+---------+ + + + | 12/07/ | Office | [facility] [place] | [place], | Ulcerative colitis | | 2013 | Visit | GASTROENTEROLOGY | KYRA Singer [address] | ([facility]) (Primary Dx) | | | | [address] [place] | [address] | | | | | [address] [place], [place] | [place], [place] | | | | | [address] | [address] | | | | | [phone] | | | +--------+---------+ + + + [...] of control. Recommended discussion with PCP or TRANSMISSION INSPECTOR. Will follow up with results. Patient is [...] [place], | | | | | | [place] [address] | | | | | | [phone] | | | | | | | | +--------+ + + + + | 07/09/ | Virtual | Gastroenterology | Osito Bowen | | | 2020 | Office | | MD Jonathan [address] | | | | Visit | | [place] [address] | | | | | | [phone] | | | | | | | [...] to Gastroenterology | Referral | e | (VLAD) | 12/25/2013, Expires: | | (SHARON) | [...] [address] | [place] | [phone] | | [facility] | | [address] | | | - LABORATORY | | | | + + + + + | [facility] | [address] | [place] | | | [facility] | | [address] | | | - LABORATORY | | [...] + | [facility] | [address] | [place], [place] | [phone] | | [facility] | | [address] | | | - LABORATORY | | | | + + + + + | [facility] | [address] | [place], [place] | | | [facility] | | [address] [place] [address] | | | - LABORATORY | | [...] | | | Eosinophils | | | [facility] | | | | | [facility] | | | | | | CENTER - | | | | | | LABORATORY | | + + + + + + | % Basophils | 1.0 | 0 - 1 % | [facility] | | | | | | [facility] | | [facility] | | | | | | [facility] - | | | | | | LABORATORY | | + + + + + + | Absolute | 5.1 | 1.5 - 6.6 K/uL | [facility] | | | Neutrophils | | | [facility] | | [...] + + | Performing | Address | City/[facility] | Phone Number | | Organization | | | | + + + + + | [facility] | [address] | [place] | [phone] | | [facility] | | [address] | | | - LABORATORY | | | | + + + + + | [facility] | [address] | [place] | | | [facility] | | [address], [place] | | | - LABORATORY | | | | + + + + + documented in this encounter Visit Diagnoses + + | Diagnosis | + + | Ulcerative colitis (HCC) - Primary Ulcerative colitis, unspecified | + + documented in this encounter
--- OUTSIDE RECORDS SUMMARY | ~2020-05-23 | XMS | Encounter Summary ---
Demographics + + + | Address | [address] | | | [place] [address] | + + + | Home Phone [...] [place] | | | | | [address] | | + + + + + Care Team Providers + +------+ + | Care Central Office Frame Wirer Name | Role | Phone | [...] + + | 07/17/ | Telephone | [facility] | Osito Bowen | Gastroenterology | | 2019 | | GASTROENTEROLOGY | MD Jonathan [address] | Appointment | | | | [address] | [place] [address] | (reschedule 07/18 | | | | [place], [place] | [phone] | appointment) | | | | [address] | | | | | | [phone] | | | +--------+ + + + [...] transfer the call to a luna 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
--- OUTSIDE RECORDS SUMMARY | ~2020-05-23 | XMS | Encounter Summary ---
Demographics + + + | Address | [address] | | | [place] [address] | + + + | Home Phone [...] | Author | [facility] | | | and [...] | [place] | | | | | [address] | | + + + + + Care Team Providers + +------+ + | Care Manager Banking Name | Role | Phone | + [...] | | colitis | Lucrecia, | [address] | | | | | Procedures | NATURAL FOODS CLERK [address] | [place], | | | | | [place] IV | [address] | [place] [address] | | | | | INFUSION, | [address] | Phone: | | | | | THERAP/PROPH | [place], | [phone] | | | | | /[place] | [place] [address] | Fax: | | | | | ITIAL,1ST | Phone: | [phone] | | | | | [place] | [phone] | | | | | | INFLIXIMAB | Fax: | | | | | | INJECTION, | [phone] | | | | | | 10 MG WSM | | | | | | | OP INF | | | | | | | REMICADE | | | +--------+--------+ + + + + Encounter Details +--------+ + + + + | Date | Type | Department | Care Team | Description | +--------+ + + + + | 02/11/ | Hospital | [facility] | [facility], | Ulcerative colitis, | | 2015 | Encounter | MED CTR OP INFUSION | KYRA Singer [address] | unspecified | | | | [address] | [address] | complication (HCC) | | | | [place], [place] | [place], [place] | (Primary Dx) | | | | [address] | [address] | | | | | [phone] | | | +--------+ + + + [...] 2019 | Office | | [address] | | | | Visit | | [place], | | | | | | [place] [address] | | | | | | [phone] | | | | | | | | +--------+ + + + + | 07/09/ | Virtual | Gastroenterology | Osito Bowen | | | 2019 | Office | | MD Jonathan [address] | | | | Visit | | [place] [address] | | | | | | [phone] | | | | | | | | +--------+ + + + + documented as of this encounter Visit Diagnoses + + | Diagnosis | + + | Ulcerative colitis, unspecified complication - Primary | + + documented in this encounter"
--- OUTSIDE RECORDS SUMMARY | ~2020-05-23 | XMS | Encounter Summary ---
Demographics + + + | Address | [address] | | | [place] [address] | + + + | Home Phone [...] | [place] | | | | | [address] | | + + + + + Care Team Providers + +------+ + | Care Inspector Pawnshop Detail Name | Role | Phone | [...] | | colitis | Lucrecia, | [address] | | | | | Procedures | PERFORMING ARTIST [address] | [place], | | | | | [place] IV | [address] | [place] [address] | | | | | INFUSION, | [address] | Phone: | | | | | THERAP/PROPH | [place], | [phone] | | | | | /[place] | [place] [address] | Fax: | | | | | ITIAL,1ST | Phone: | [phone] | | | | | [place] | [phone] | | | | | | INFLIXIMAB | Fax: | | | | | | INJECTION, | [phone] | | | | | | 10 MG WSM | | | | | | | OP INF | | | | | | | REMICADE | | | +--------+--------+ + + + + Encounter Details +--------+ + + + + | Date | Type | Department | Care Team | Description | +--------+ + + + + | 10/23/ | Hospital | [facility] | [facility], | Ulcerative colitis, | | 2015 | Encounter | MED CTR OP INFUSION | MAGY Singer[address] | with rectal bleeding | | | | [address] | [address] | ([facility]) (Primary Dx) | | | | [place], [place] | [place], [place] | | | | | [address] | [address] | | | | | [phone] | | | +--------+ + + + [...] Miscellaneous Notes Miscellaneous - ANNETTE BISHOPCA - 10/26/2014 12:00 AM PST documented in this encounter Plan of Treatment +--------+ + + + + | Date | Type | Specialty | Care Team | Description | +--------+ + + + + | 05/29/ | Virtual | Gastroenterology | Natalie, | | | 2019 | Office | | [address] | | | | Visit | | [place] | | | | | | [place] [address] | | | | | | [phone] | | | | | | | | +--------+ + + + + | 07/09/ | Virtual | Gastroenterology | Osito Bowen | | 2019 | Office | | MD [address] | | | | Visit | | [place] [address] | | | | | | [phone] | | | | | | | [...] 400 mg in | New Bag | 10/23/19 | 400 mg | 125 | | [...]
[~2020-05-23 21:30] MED LIST changes: +AMOX TR-K CLV1 EAC1 PO; +BUDESONIDE EC3 MG PO; +MESALAMINE4 GM/60 ML PR; +PANTOPRAZOLE SO40 MG PO; +PREDNISONE10 MG; +SUCRALFATE1 GM PO
--- OUTSIDE RECORDS SUMMARY | 2020-05-23 21:34 | XMS ---
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 EFalguni VISIT COUNT (12 MO.) 2 RAGHAV Galvan TOTAL 2 NOTE: Visits indicate total known visits. ED/UCC VISIT TRACKING (12 MO.) 05/23/2020 21:31 RAGHAV [facility] [place] TYPE: Emergency COMPLAINT: - FATIGUE/WEAKNESS 01/12/2020 13:27 [facility] [place] TYPE: Emergency COMPLAINT: - WEAK, TIRED, COLD DIAGNOSES: - Abnormal uterine and vaginal bleeding, unspecified - Anemia, unspecified - Allergy status to sulfonamides status - Weakness INPATIENT VISIT TRACKING (12 MO.) No inpatient visits to display in this time frame [email or web address]
[2020-05-24] MEDS ORDERED: PREDNISONE5 MG PO (04:53)
== END 2020-05-24 05:10 | disposition home or self-care (01) ==
LOC: ED 21:30
DX: R19.7 Diarrhea, unspecified (principal); D72.829 Elevated white blood cell count, unspecified; D64.9 Anemia, unspecified; K51.90 Ulcerative colitis, unspecified, without complications; Z88.2 Allergy status to sulfonamides
CPT/HCPCS: 80053; 81001; 83690; 83735; 84703; 85025; 86850; 86900; 86901; 86920; 86922; 96361; 96374; 96375; 99284-25; J1100; J1885; J7030

== ENCOUNTER 2020-06-03 16:04 | Inpatient (IN) | payer OTHER ==
[~2020-06-03] VITALS: Ht 160 cm; Wt 88.0 kg
--- OUTSIDE RECORDS SUMMARY | ~2020-06-03 | XMS | Encounter Summary ---
Demographics + + + | Address | [address] | | | [place] [address] | + + + | Home Phone | | + + + | Preferred Language | Unknown | + + + | Marital Status | Single | + + + | Caodaism Affiliation | 1013 | + + + | Race | White | + + + | Ethnic Group | Not or | + + + Author + + + | Author | [facility] | | | and [place] | + + + | Organization | [facility] | | | and [place] | + + + | Address | Unknown | + + + | Phone | Unavailable | + + + Support + + + + + | Name | Relationship | Address | Phone | + + + + + | Marilyn Diallo | ECON | [place] | | | | | [address] | | + + + + + Care Team Providers + +------+ + | Care Satellite Television Installer Name | Role | Phone | + +------+ + | Carlos Díaz NP | PCP | | + +------+ + Reason for Visit Evaluate & Treat (Routine) +--------+--------+ + + + + | Status | Reason | Specialty | Diagnoses / | Referred By | Referred To | | | | | Procedures | Contact | Contact | +--------+--------+ + + + + | Closed | | Infusion | Diagnoses | | [facility] | | | | Therapy | ulcerative | [place], | Infusion [address] | | | | | colitis | [place], | [address] | | | | | Procedures | HOUSING CASE MANAGER [address] | [place], | | | | | [place] | [address] | [place] [address] | | | | | INFUSION, | [address] | Phone: | | | | | THERAP/PROPH | [place] SOLANO, | [phone] | | | | | /[place] | [place] [address] | Fax: | | | | | ITIAL,[address]ST | Phone: | [phone] | | | | | [place] | [phone] | | | | | | INFLIXIMAB | Fax: | | | | | | INJECTION, | [phone] | | | | | | 10 MG [facility] | | | | | | | OP INF | | | | | | | REMICADE | | | +--------+--------+ + + + + Encounter Details +--------+ + + + + | Date | Type | Department | Care Team | Description | +--------+ + + + + | 10/23/ | Hospital | [facility] | [facility], | Ulcerative colitis, | | 2015 | Encounter | MED CTR OP INFUSION | MAGY SingerP [address] | with rectal bleeding | | | | [address] | [address] | ([facility]) (Primary Dx) | | | | [place], [place] | [place], [place] | | | | | [address] | [address] | | | | | [phone] | | | +--------+ + + + + Social History + +-------+ +--------+------+ | Tobacco Use | Types | Packs/Day | Years | Date | | | | | Used | | + +-------+ +--------+------+ | Former Smoker | | | | | + +-------+ +--------+------+ + +---+---+---+ | Smokeless Tobacco: | | | | | Never Used | | | | + +---+---+---+ + + +---------+ + | Alcohol Use | Drinks/Week | oz/Week | Comments | + + +---------+ + | No | | | | + + +---------+ + + + + | Sex Assigned at | Date Recorded | | | | + + + | Not on file | | + + + documented as of this encounter Last Filed Vital Signs + + + + + | Vital Sign | Reading | Time Taken | Comments | + + + + + | Blood Pressure | 106/52 | 10/23/2014 2:20 PM | | | | | PST | | + + + + + | Pulse | 75 | 10/23/2014 2:20 PM | | | | | PST | | + + + + + | Temperature | 36.5 C (97.7 F) | 10/23/2014 11:30 AM | | | | | PST | | + + + + + | Respiratory Rate | 16 | 10/23/2014 2:20 PM | | | | | PST | | + + + + + | Oxygen Saturation | 97% | 10/23/2014 2:20 PM | | | | | PST | | + + + + + | Inhaled Oxygen | - | - | | | Concentration | | | | + + + + + | Weight | 83.9 kg (185 lb) | 10/23/2014 11:30 AM | | | | | PST | | + + + + + | Height | 160 cm (5' 3") | 10/23/2014 11:30 AM | | | | | PST | | + + + + + | Body Mass Index | 32.77 | 10/23/2014 11:30 AM | | | | | PST | | + + + + + documented in this encounter Medications at Time of Discharge + + + +---------+ + + | Medication | Sig | Dispensed | Refills | Start | End Date | | | | | | Date | | + + + +---------+ + + | ascorbic acid | Take 1,000 mg by | | 0 | | | | (VITAMIN C) 500 mg | mouth Daily. | | | | 5 | | tablet | | | | | | + + + +---------+ + + | azaTHIOprine | Take 1 tablet by | 30 | 0 | 08/02/20 | | | (IMURAN) 50 mg | mouth Daily. | tablet | | 14 | 5 | | tablet | | | | | | + + + +---------+ + + | CALCIUM PO | TABS, one by mouth | | 0 | 06/23/20 | | | | daily | | | 12 | 5 | + + + +---------+ + + | Cholecalciferol | Take 1,000 Units by | | 0 | | | | (VITAMIN D3) 3000 | mouth 2 times daily. | | | | 5 | | UNITS TABS | | | | | | + + + +---------+ + + | ferrous sulfate | Take by mouth daily | | 0 | | | | (SUSAN-IN-ALEJANDRO) 15 | (with breakfast). | | | | 5 | | mg/mL SOLN | | | | | | + + + +---------+ + + | mesalamine (ASACOL | Take 1 tablet by | 90 | 2 | 07/09/20 | | | HD) [address] | mouth 3 times daily. | tablet | | 14 | 6 | | tablet | | | | | | + + + +---------+ + + | Multiple Vitamin | one by mouth daily | | 0 | 06/23/20 | | | (MULTI-DAY) TABS | | | | 12 | 5 | + + + +---------+ + + | omeprazole | Take 1 capsule by | 30 | 2 | 08/14/20 | | | (PRILOSEC) 20 mg | mouth every morning | capsule | | 14 | 5 | | capsule | (before breakfast). | | | | | + + + +---------+ + + | predniSONE | Take 30 mg by mouth | | 0 | 07/26/20 | | | (DELTASONE) 10 mg | Daily. | | | 13 | 5 | | tablet | | | | | | + + + +---------+ + + | predniSONE | Take 4 tablets by | 120 | 0 | 08/01/20 | | | (DELTASONE) 10 mg | mouth Daily. | tablet | | 14 | 5 | | tablet | | | | | | + + + +---------+ + + documented as of this encounter Miscellaneous Notes Miscellaneous - ANNETTE VINCENZO [facility] - 10/26/2014 12:00 AM PST documented in this encounter Plan of Treatment +--------+ + + + + | Date | Type | Specialty | Care Team | Description | +--------+ + + + + | 06/04/ | Virtual | Gastroenterology | Natalie, | | | 2019 | Office | | [address] | | | | Visit | | [place] | | | | | | [place] [address] | | | | | | [phone] | | | | | | | | +--------+ + + + + | 07/09/ | Virtual | Gastroenterology | Osito Bowen | | 2019 | Office | | MD Jonathan [address] | | | | Visit | | [place] [address] | | | | | | [phone] | | | | | | | | +--------+ + + + + documented as of this encounter Visit Diagnoses + + | Diagnosis | + + | Ulcerative colitis, with rectal bleeding - Primary | + + documented in this encounter Administered Medications + +--------+ +--------+------+------+ | Medication Order | MAR | Action | Dose | Rate | Site | | | Action | Date | | | | + +--------+ +--------+------+------+ | acetaminophen (TYLENOL) tablet | Given | 10/23/19 | 650 mg | | | | 650 mg 650 mg, Oral, ONCE, Tue | | 15 12:05 | | | | | 10/23/14 at 1150, For 1 dose, | | PM PST | | | | | Administer 30 minutes prior to | | | | | | | inFLIXimab, | | | | | | + +--------+ +--------+------+------+ +---+---+ | | | +---+---+ + +-------+ +-------+---+---+ | diphenhydrAMINE (BENADRYL) | Given | 10/23/19 | 25 mg | | | | tablet 25 mg 25 mg, Oral, ONCE, | | 15 12:04 | | | | | 10/23/14 at 1150, For 1 dose, | | PM PST | | | | | Administer 30 minutes prior to | | | | | | | inFLIXimab, | | | | | | + +-------+ +-------+---+---+ +---+---+ | | | +---+---+ + +---------+ +--------+-------+---+ | inFLIXimab (REMICADE) 400 mg in | New Bag | 01/13/20 | 400 mg | 125 | | | sodium chloride 0.9% 250 mL | | 15 12:15 | | mL/hr | | | infusion 400 mg (5 mg/kg | | PM PST | | | | | 83.9 kg), Intravenous, | | | | | | | Administer over 2 Hours, ONCE, | | | | | | | 10/23/14 at 1205, For 1 dose, | | | | | | | Rate for first infusion: 10 mL/hr | | | | | | | for 15 min, then 20 mL/hr for 15 | | | | | | | min, then 40 mL/hr for 15 min, | | | | | | | then 80 mL/hr for 15 min, then | | | | | | | 150 mL/hr for 15 min, then 250 | | | | | | | mL/hr. Use 0.22 micron filter for | | | | | | | administration. MAINTENANCE, | | | | | | + +---------+ +--------+-------+---+ +---+---+ | | | +---+---+ documented in this encounter
--- OUTSIDE RECORDS SUMMARY | ~2020-06-03 | XMS | Encounter Summary ---
Demographics + + + | Address | [address] | | | [place] [address] | + + + | Home Phone | | + + + | Preferred Language | Unknown | + + + | Marital Status | Single | + + + | Rastafari Affiliation | 1013 | + + + | Race | White | + + + | Ethnic Group | Not or | + + + Author + + + | Author | [facility] | | | and [place] | + + + | Organization | [facility] | | | and [place] | + + + | Address | Unknown | + + + | Phone | Unavailable | + + + Support + + + + + | Name | Relationship | Address | Phone | + + + + + | Marilyn Diallo | ECON | [place] | | | | | [address] | | + + + + + Care Team Providers + +------+ + | Care Housekeeper Supervisor Name | Role | Phone | + +------+ + | Carlos Díaz NP | PCP | | + +------+ + Reason for Visit Auth/Cert +--------+--------+ + + + + | Status | Reason | Specialty | Diagnoses / | Referred By | Referred To | | | | | Procedures | Contact | Contact | +--------+--------+ + + + + | Closed | | Infusion | Diagnoses | | [facility] | | | | Therapy | | | Infusion [address] | | | | | [address] | | [address] | | | | | [address] | | [place], | | | | | | | [place] [address] | | | | | | | Phone: | | | | | | | [phone] | | | | | | | Fax: | | | | | | | [phone] | +--------+--------+ + + + + Encounter Details +--------+ + + + + | Date | Type | Department | Care Team | Description | +--------+ + + + + | 07/02/ | Hospital | [facility] | [facility], | Ulcerative colitis, | | 2013 | Encounter | MED CTR OP INFUSION | KYRA Singer [address] | unspecified (Primary | | | | [address] | [address] | Dx); Ulcerative | | | | [place], [place] | [place], [place] | colitis, with rectal | | | | [address] | [address] | bleeding (HCC) | | | | [phone] | | | +--------+ + + + [...] + + + | Blood Pressure | 109/58 | 07/02/2014 3:20 PM | | | | | PDT | | + + + + + | Pulse | 79 | 07/02/2014 3:20 PM | | | | | PDT | | + + + + + | Temperature | 36.9 C (98.4 F) | 07/02/2014 3:20 PM | | | | | PDT | | + + + + + | Respiratory Rate | 16 | 07/02/2014 3:20 PM | | | | | PDT | | + + + + + | Oxygen Saturation | 100% | 07/02/2014 3:20 PM | | | | | PDT | | + + + + + | Inhaled Oxygen | - | - | | | Concentration | | | | + + + + + | Weight | 85.9 kg (189 lb 4.8 | 07/02/2014 12:00 PM | | | | oz) | PDT | | + + + + + | Height | 160 cm (5' 3") | 07/02/2014 12:00 PM | | | | | PDT | | + + + + + | Body Mass Index | 33.53 | 07/02/2014 12:00 PM | | | | | PDT | | + + + + + documented in this encounter Discharge Instructions Patient Instructions Sukumar Christianson RN - 07/02/2014 1:47 PM PDTIf you experience any re actions from the infusion, such as rash, swelling or soreness, contact your physician. documented in this encounter Medications at Time of Discharge + + + +---------+ + + | Medication | Sig | Dispensed | Refills | Start | End Date | | | | | | Date | | + + + +---------+ + + | ASACOL HD 800 MG | TAKE ONE TABLET BY | 90 | 0 | 05/26/20 | | | DR tablet | MOUTH THREE TIMES | tablet | | 14 | 4 | | | DAILY | | | | | + + [...] + + | mesalamine (ASACOL | Take 800 mg by mouth | | 0 | 11/09/19 | | | HD) [address] | 4 times daily. | | | 14 | 4 | | tablet | | | | [...] Take 4 tablets by | 120 | 1 | 04/04/20 | | | (DELTASONE) 10 mg | mouth Daily. | tablet | | 14 | 4 | | tablet | | | | | | + + + +---------+ + + | predniSONE | Take 2 tabs for 14 | 30 | 0 | 07/26/20 | | | (DELTASONE) 10 mg | days, then decrease | tablet | | 13 | 5 | | tablet | by 5 mg every 7 days | | | | | | | until off | | | | | | | medication. | | | | | + + + +---------+ + + documented as of this encounter Progress Notes Loraine Gonzales RN - 07/02/2014 3:30 PM PDTPt discharged home, instructions given, appoint ment made. No S/s of reaction to medication. Ambulatory out with motherElectronically sign ed by Loraine Gonzales RN at 07/02/2014 3:33 PM Loraine Wallis RN - 07/02/2014 12:00 PM P DTPt received into room 301. Denies any flu like illness. documented in this encounter Miscellaneous Notes Miscellaneous - ANNETTE BISHOPWI - 07/06/2014 12:00 AM PDT documented in this encounter Plan of Treatment +--------+ + + + + | Date | Type | Specialty | Care Team | Description | +--------+ + + + + | 06/04/ | Virtual | Gastroenterology | Natalie, | | | 2019 | Office | | [address] | | | | Visit | | [place], | | | | | | [place] [address] | | | | | | [phone] | | | | | | | | +--------+ + + + + | 07/09/ | Virtual | Gastroenterology | Osito Bowen | | | 2019 | Office | | MD Jonathan [address] | | | | Visit | | [place] [address] | | | | | | [phone] | | | | | | | | +--------+ + + + + documented as of this encounter Procedures + +--------+ + + + | Procedure Name | Priori | Date/Time | Associated Diagnosis | Comments | | | ty | | | | + +--------+ + + + | SEDIMENTATION RATE | Routin | 07/02/2014 | | Results for this | | | e | 2:20 PM | | procedure are in the | | | | PDT | | results section. | + +--------+ + + + | CBC WITH | Routin | 07/02/2014 | | Results for this | | DIFFERENTIAL | e | 2:20 PM | | procedure are in the | | | | PDT | | results section. | + +--------+ + + + | C-REACTIVE PROTEIN | Routin | 07/02/2014 | | Results for this | | | e | 2:20 PM | | procedure are in the | | | | PDT | | results section. | + +--------+ + + + documented in this encounter Results Sedimentation Rate (07/02/2014 2:20 PM PDT) + +--------+ + + + | Component | Value | Ref Range | Performed | Pathologist | | | | | At | Signature | + +--------+ + + + | Erythrocyte | 21 (H) | <20 mm/hr | [facility] | | | | | | [facility] | | | [facility] | | | [facility] | | | on Rate | | | C[facility] - | | | | | | LABORATORY | | + +--------+ + + + + + | Specimen | + + | Blood | + + + + + + + | Performing | Address | City/State/Zipcode | Phone Number | | Organization | | | | + + + + + | [facility] | [address] | [place] | [phone] | | [facility] | | [address] | | | - LABORATORY | | | | + + + + + | [facility] | [address] | [place] | | | [facility] | | [address], [place] | | | - LABORATORY | | | | + + + + + C-Reactive Protein (07/02/2014 2:20 PM PDT) + +-------+ + + + | Component | Value | Ref Range | Performed | Pathologist | | | | | At | Signature | + +-------+ + + + | CRP | 0.70 | <8.00 mg/L | [facility] | | | | | | [facility] | | | | | | MEDICAL | | | | | | CENTER - | | | | | | LABORATORY | | + +-------+ + + + + + | Specimen | + + | Blood | + + + + + + + | Performing | Address | City/State/Zipcode | Phone Number | | Organization | | | | + + + + + | [facility] | [address] | [place] | [phone] | | [facility] | | [address] | | | - LABORATORY | | | | + + + + + | [facility] | [address] | [place], [place] | | | [facility] | | [address], [facility] | | | - LABORATORY | | | | + + + + + CBC with Differential (07/02/2014 2:20 PM PDT) + + + + + + | Component | Value | Ref Range | Performed | Pathologist | | | | | At | Signature | + + + + + + | White Blood | 9.3 | 4.0 - 11.0 K/uL | [facility] | | | Cells | | | [facility] | | | | | | MEDICAL | | | | | | CENTER - | | | | | | LABORATORY | | + + + + + + | Red Blood | 4.32 | 3.70 - 5.20 | [facility] | | | Cells | | M/uL | [facility] | | | | | | MEDICAL | | | | | | CENTER - | | | | | | LABORATORY | | + + + + + + | Hemoglobin | 9.9 (L) | 11.5 - 16.0 | [facility] | | | | | g/dL | [facility] | | | | | | MEDICAL | | | | | | CENTER - | | | | | | LABORATORY | | + + + + + + | Hematocrit | 31.8 (L) | 34.0 - 47.0 % | [facility] | | | | | | [facility] | | | | | | MEDICAL | | | | | | CENTER - | | | | | | LABORATORY | | + + + + + + | MCV | 73.7 (L) | 83.0 - 101.0 fL | [facility] | | | | | | [facility] | | | | | | MEDICAL | | | | | | CENTER - | | | | | | LABORATORY | | + + + + + + | MCH | 22.9 (L) | 28.0 - 35.0 pg | [facility] | | | | | | [facility] | | | | | | MEDICAL | | | | | | CENTER - | | | | | | LABORATORY | | + + + + + + | MCHC | 31.0 (L) | 32.0 - 36.0 | [facility] | | | | | g/dL | [facility] | | | | | | MEDICAL | | | | | | CENTER - | | | | | | LABORATORY | | + + + + + + | RDW-CV | 17.2 (H) | <15.0 % | [facility] | | | | | | [facility] | | | | | | MEDICAL | | | | | | CENTER - | | | | | | LABORATORY | | + + + + + + | Platelet | 225 | 140 - 440 K/uL | [facility] | | | Count | | | [facility] | | | | | | MEDICAL | | | | | | CENTER - | | | | | | LABORATORY | | + + + + + + | MPV | 10.6 | fL | [facility] | | | | | | [facility] | | | | | | MEDICAL | | | | | | CENTER - | | | | | | LABORATORY | | + + + + + + | % | 72.4 | 45.0 - 82.0 % | [facility] | | | Neutrophils | | | [facility] | | | | | | MEDICAL | | | | | | CENTER - | | | | | | LABORATORY | | + + + + + + | % | 16.0 (L) | 20.0 - 45.0 % | [facility] | | | Lymphocytes | | | [facility] | | | | | | MEDICAL | | | | | | CENTER - | | | | | | LABORATORY | | + + + + + + | % Monocytes | 7.8 | 4.0 - 12.0 % | [facility] | | | | | | [facility] | | | | | | MEDICAL | | | | | | CENTER - | | | | | | LABORATORY | | + + + + + + | % | 3.1 | 0.0 - 5.0 % | [facility] | | | Eosinophils | | | [facility] | | | | | | MEDICAL | | | | | | CENTER - | | | | | | LABORATORY | | + + + + + + | % Basophils | 0.7 | 0.0 - 1.0 % | [facility] | | | | | | [facility] | | | | | | MEDICAL | | | | | | CENTER - | | | | | | LABORATORY | | + + + + + + | Absolute | 6.80 | 1.80 - 8.50 | [facility] | | | Neutrophils | | K/uL | [facility] | | | | | | MEDICAL | | | | | | CENTER - | | | | | | LABORATORY | | + + + + + + | Absolute | 1.50 | 0.60 - 3.20 | [facility] | | | Lymphocytes | | K/uL | [facility] | | | | | | MEDICAL | | | | | | CENTER - | | | | | | LABORATORY | | + + + + + + | Absolute | 0.70 | 0.00 - 1.00 | [facility] | | | Monocytes | | K/uL | [facility] | | | | | | MEDICAL | | | | | | CENTER - | | | | | | LABORATORY | | + + + + + + | Absolute | 0.30 | 0.00 - 0.40 | [facility] | | | Eosinophils | | K/uL | [facility] | | | | | | MEDICAL | | | | | | CENTER - | | | | | | LABORATORY | | + + + + + + | Absolute | 0.10 | 0.00 - 0.10 | [facility] | | | Basophils | | K/uL | [facility] | | | | | | MEDICAL | | | | | | CENTER - | | | | | | LABORATORY | | + + + + + + + + | Specimen | + + | Blood | + + + + + + + | Performing | Address | City/State/Zipcode | Phone Number | | Organization | | | | + + + + + | [facility] | [address] | [place], [place] | [phone] | | [facility] | | [address] | | | - LABORATORY | | | | + + + + + | [facility] | [address] | [place], [place] | | | [facility] | | [address] [place] [address] | | | - LABORATORY | | | | + + + + + documented in this encounter Visit Diagnoses + + | Diagnosis | + + | Ulcerative colitis, unspecified - Primary | + + | Ulcerative colitis, with rectal bleeding | + + documented in this encounter Administered Medications + +--------+ +--------+------+------+ | Medication Order | MAR | Action | Dose | Rate | Site | | | Action | Date | | | | + +--------+ +--------+------+------+ | acetaminophen (TYLENOL) tablet | Given | 07/02/20 | 650 mg | | | | 650 mg 650 mg, Oral, ONCE, Mon | | 14 12:27 | | | | | 07/02/14 at 1215, For 1 dose, | | PM PDT | | | | | Administer 30 minutes prior to | | | | | | | inFLIXimab, | | | | | | + +--------+ +--------+------+------+ +---+---+ | | | +---+---+ + +-------+ +-------+---+---+ | diphenhydrAMINE (BENADRYL) | Given | 07/02/20 | 25 mg | | | | tablet 25 mg 25 mg, Oral, ONCE, | | 14 12:27 | | | | | 07/02/14 at 1215, For 1 dose, | | PM PDT | | | | | Administer 30 minutes prior to | | | | | | | inFLIXimab, | | | | | | + +-------+ +-------+---+---+ +---+---+ | | | +---+---+ + +---------+ +--------+-------+---+ | inFLIXimab (REMICADE) 400 mg in | New Bag | 07/02/20 | 400 mg | 125 | | | sodium chloride 0.9% 250 mL | | 14 12:44 | | mL/hr | | | infusion 400 mg (5 mg/kg | | PM PDT | | | | | 85.9 kg), Intravenous, | | | | | | | Administer over 2 Hours, ONCE, | | | | | | | 07/02/14 at 1230, For 1 dose, | | | | [...] | | | | | | administration. WEEK 6, | | | | | | + +---------+ +--------+-------+---+ +---+---+ | | | +---+---+ documented in this encounter
--- OUTSIDE RECORDS SUMMARY | ~2020-06-03 | XMS | Encounter Summary ---
Demographics + + + | Address | [address] | | | [place] [address] | + + + | Home Phone | | + + + | Preferred Language | Unknown | + + + | Marital Status | Single | + + + | Spiritism Affiliation | 1013 | + + + | Race | White | + + + | Ethnic Group | Not or | + + + Author + + + | Author | [facility] | | | and [place] | + + + | Organization | [facility] | | | and [place] | + + + | Address | Unknown | + + + | Phone | Unavailable | + + + Support + + + + + | Name | Relationship | Address | Phone | + + + + + | Marilyn Diallo | ECON | [place] | | | | | [address] | | + + + + + Care Team Providers + +------+ + | Care Top Precipitator Operator Name | Role | Phone | + +------+ + | Carlos Díaz NP | PCP | | + +------+ + Reason for Visit + + + | Reason | Comments | + + + | Follow-up | | + + + Evaluate & Treat (Routine) +--------+--------+ + + + + | Status | Reason | Specialty | Diagnoses / | Referred By | Referred To | | | | | Procedures | Contact | Contact | +--------+--------+ + + + + | Closed | | Nurse | Diagnoses | Arjun, | Rosamaria, | | | | Practitioner | Ulcerative | Carlos Rosenbaum, | Lucrecia, | | | | / | colitis, | CV/CVN CV TSC SYSTEM OPERATOR [address] | CHECKING CLERK [address] | | | | Gastroenterol | unspecified | [facility] | [address] | | | | ogy | follow up | [place], | [address] | | | | | ulcerative | [address] | [place], | | | | | colits-per | [place], | [place] [address] | | | | | lexus/pcp | [place] [address] | Phone: | | | | | arjun/mod | Phone: | [phone] | | | | | a | [phone] | Fax: | | | | | Procedures | Fax: | [phone] | | | | | OFFICE VISIT | [phone] | | | | | | REGULAR | | | +--------+--------+ + + + + Encounter Details +--------+---------+ + + + | Date | Type | Department | Care Team | Description | +--------+---------+ + + + | 01/15/ | Office | [facility] | [facility], | Ulcerative colitis, | | 2013 | Visit | GASTROENTEROLOGY | KYRA Singer [address] | unspecified | | | | [address] | [address] | complication (HCC) | | | | [address] [place], [place] | [place], [place] | (Primary Dx) | | | | [address] | [address] | | | | | [phone] | | | +--------+---------+ + + + Social History + +-------+ [...] + + + | Blood Pressure | 110/70 | 01/15/2014 10:08 AM | | | | | PDT | | + + + + + | Pulse | 74 | 01/15/2014 10:08 AM | | | | | PDT | | + + + + + | Temperature | 36.6 C (97.9 F) | 01/15/2014 10:08 AM | | | | | PDT | | + + + + + | Respiratory Rate | 16 | 01/15/2014 10:08 AM | | | | | PDT | | + + + + + | Oxygen Saturation | - | - | | + + + + + | Inhaled Oxygen | - | - | | | Concentration | | | | + + + + + | Weight | 83 kg (183 lb) | 01/15/2014 10:08 AM | | | | | PDT | | + + + + + | Height | - | - | | + + + + + | Body Mass Index | 31.41 | 12/25/2013 9:59 AM | | | | | PDT | | + + + + + documented in this encounter Progress Notes Lucrecia Blank ARNP - 01/15/2014 10:19 AM PDTFormatting of this note might be differe nt from the original. Ria Menjivartz is a 33 y.o. female here for followup ulcerative colitis History of present illness: Patient notes that she is feeling better since colonoscopy. She has increased Asacol to 800 mg tid and feeling well. She is using suppositories at night. Blood in stool is very occasion. She has about 4 BM per day. All are formed. Feels much better. Allergies Allergen Reactions Sulfa Antibiotics Past Medical History Diagnosis Date Colitis Anemia History of blood transfusion Ectopic Inflammatory arthritis (HCC) Past Surgical History Procedure Date Ectopic surgery unk Colonoscopy 12/25/2013 COLONOSCOPY performed by Aris Schmid MD at [facility] Family History Problem Relation Age of Onset Colon polyps Mother High blood pressure Mother Diabetes Father Diabetes, IDDM Sister History Social History Marital Status: Single Spouse Name: N/A Number of Children: N/A Years of Education: N/A Occupational History Not on file. Social History Main Topics Smoking status: Former Smoker Smokeless tobacco: Never Used Alcohol Use: No Drug Use: Yes Comment: marijuana Sexually Active: Not on file Other Topics Concern Not on file Social History Narrative No narrative on file Review of systems: Constitutional:Denies any fevers, chills, or unintentional weight loss. Respiratory:Denies shortness of breath, cough or wheezing. Gastrointestinal:Negative except as stated above. Cardiovascular:Denies chest pain, palpitations, or swelling to legs Physical exam: General: Alert and oriented, NAD Eyes: Sclera clear, MMM Abdomen: Soft, non-tender, non-distended, bowel tones positive x 4 quadrants, negative Murp hy's sign, negative rebound tenderness, no hepatosplenomegaly. Extremities: No clubbing or edema Skin: Warm, dry, intact. No rashes noted Neuro: Cranial nerves 2-12 grossly intact. Psych: Appropriate mood and affect. Colonoscopy 12/25/2013: Impression: - Inflammation was found from the anus to the cecum secondary to pancolitis. Biopsied. - A few ulcers in the distal ileum. Biopsied Pathology 12/25/2013: A. Terminal ileum biopsy: -Acute and chronic ileitis consistent with backwash ileitis. -No evidence for dysplasia. B. Cecum biopsy: -Chronic active colitis consistent with ulcerative colitis. -No evidence of dysplasia. C. Ascending colon biopsy: -Chronic active colitis consistent with ulcerative colitis. -Cryptitis and crypt abscess are present -No evidence of dysplasia. D. Colon hepatic flexure biopsy: -Chronic active colitis consistent with ulcerative colitis. -No evidence of dysplasia. E. Chronic transverse biopsies: -Chronic active colitis consistent with ulcerative colitis. -Cryptitis and crypt abscess are present. -No evidence of dysplasia. F. Colon, splenic flexure biopsy: -Chronic active colitis consistent with ulcerative colitis. -No evidence of dysplasia. G. Colon descending biopsies: -Chronic active colitis consistent with ulcerative colitis. -Cryptitis and crypt abscess are present. -No evidence of dysplasia. H. Colon sigmoid biopsy: -Chronic active colitis consistent with ulcerative colitis. -No evidence of dysplasia. I. Rectosigmoid biopsy: -Chronic active colitis consistent with ulcerative colitis. -Cryptitis and crypt abscess are present. -No evidence of dysplasia. J. Rectum biopsy: -Chronic active colitis consistent with ulcerative colitis. -No evidence of dysplasia. Assessment 1. Ulcerative colitis, unspecified complication (HCC) Plan: She is to continue with Asacol tid and suppositories. Will recheck CBC and inflammatory markers 04/2014. If continued active inflammation, will recommend more aggressive therapy. Recommended 2 year repeat colonoscopy for routine colon cancer screening. Patient is to call with any question or concerns. Any fevers, chills, chest pain, SOB or o ther serious symptoms patient is to call the office or go to ER Cc: Carlos Díaz Reviewed most recent labs, imaging, and procedures. This note was dictated using voice recognition software. Please contact me if there are an y questions regarding its content. Electronically signed by KYRA Beatty at 09/2014 9:36 AM PDTdocumented in this encounter Plan of Treatment +--------+ + + + + | Date | Type | Specialty | Care Team | Description | +--------+ + + + + | 06/04/ | Virtual | Gastroenterology | Natalie, | | | 2019 | Office | | [address] | | | | Visit | | [place], | | | | | | [place] [address] | | | | | | [phone] | | | | | | | | +--------+ + + + + | 07/09/ | Virtual | Gastroenterology | Osito Bowen | | | 2019 | Office | | MD Jonathan [address] | | | | Visit | | [place] [address] | | | | | | [phone] | | | | | | | | +--------+ + + + + documented as of this encounter Visit Diagnoses + + | Diagnosis | + + | Ulcerative colitis, unspecified complication - Primary | + + documented in this encounter"
--- OUTSIDE RECORDS SUMMARY | ~2020-06-03 | XMS | Encounter Summary ---
Demographics + + + | Address | [address] | | | [place] [address] | + + + | Home Phone | | + + + | Preferred Language | Unknown | + + + | Marital Status | Single | + + + | Anabaptism Affiliation | 1013 | + + + | Race | White | + + + | Ethnic Group | Not or | + + + Author + + + | Author | [facility] | | | and [place] | + + + | Organization | [facility] | | | and [place] | + + + | Address | Unknown | + + + | Phone | Unavailable | + + + Support + + + + + | Name | Relationship | Address | Phone | + + + + + | Marilyn Diallo | ECON | [place] | | | | | [address] | | + + + + + Care Team Providers + +------+ + | Care Rack Loader Name | Role | Phone | + +------+ + | Carlos Díaz NP | PCP | | + +------+ + Reason for Referral Evaluate & Treat (Routine) +--------+ + + + + + | Status | Reason | Specialty | Diagnoses / | Referred By | Referred To | | | | | Procedures | Contact | Contact | +--------+ + + + + + | Closed | Specialty | Gastroenterol | Diagnoses | | Sharon, | | | Services | ogy | Ulcerative | Rosamaria, | MD Aris | | | Required | | colitis, | Lucrecia, | [address] | | | | | with rectal | FRENCH TEACHER [address] | [place], | | | | | bleeding | [address] | [place] [address] | | | | | Diarrhea | [address] | Phone: | | | | | Procedures | [place], | [phone] | | | | | [place] | [place] [address] | Fax: | | | | | COLONOSCOPY | Phone: | [phone] | | | | | FLX DX | [phone] | | | | | | W/COLLJ SPEC | Fax: | | | | | | WHEN PFRMD | [phone] | | | | | | IN | | | | | | | COLONOSCOPY | | | | | | | W/BIOPSY | | | | | | | SINGLE/MULTI | | | | | | | PLE IN | | | | | | | COLSC FLX | | | | | | | W/RMVL OF | | | | | | | TUMOR POLYP | | | | | | | LESION SNARE | | | | | | | TQ | | | +--------+ + + + + + Reason for Visit + + + | Reason | Comments | + + + | Follow-up | colitis | + + + Evaluate & Treat [...] | | | / | colitis, | BOAT DETAIL[address] | FRENCH TEACHER [address] | | | | Gastroenterol | unspecified | [facility] | [address] | | | | ogy | followup | [address], | [address] | | | | | ulcerative | [address] | [place], | | | | | colitis/pt/m | [place], | [place] [address] | | | | | lilia/arjun | [place] [address] | Phone: | | | | | Procedures | Phone: | [phone] | | | | | OFFICE | [phone] | Fax: | | | | | VISIT | Fax: | [phone] | | | | | REGULAR | [phone] | | +--------+--------+ + + + + Encounter Details +--------+---------+ + + + | Date | Type | Department | Care Team | Description | +--------+---------+ + + + | 10/30/ | Office | [facility] | [facility], | Ulcerative colitis, | | 2014 | Visit | GASTROENTEROLOGY | KYRA Singer [address] | with rectal bleeding | | | | [address] | [address] | ([facility]) (Primary Dx); | | | | [address] [place], [place] | [place], [place] | Diarrhea | | | | [address] | [id number] | | | | | [phone] | | | +--------+---------+ + + + [...] + + + | Blood Pressure | 122/84 | 10/30/2014 10:16 AM | | | | | PST | | + + + + + | Pulse | 88 | 10/30/2014 10:16 AM | | | | | PST | | + + + + + | Temperature | 36.8 C (98.2 F) | 10/30/2014 10:16 AM | | | | | PST | | + + + + + | Respiratory Rate | 16 | 10/30/2014 10:16 AM | | | | | PST | | + + + + + | Oxygen Saturation | - | - | | + + + + + | Inhaled Oxygen | - | - | | | Concentration | | | | + + + + + | Weight | 92.5 kg (204 lb) | 10/30/2014 10:16 AM | | | | | PST | | + + + + + | Height | - | - | | + + + + + | Body Mass Index | 36.14 | 10/23/2014 11:30 AM | | | | | PST | | + + + + + documented in this encounter Progress Notes Lucrecia BlankMAGYP - 10/30/2014 10:33 AM PSTFormatting of this note might be differe nt from the original. Ria Hastings is a 34 y.o. female here for followup ulcerative colitis. History of present illness: Patient states she made her appointment about 1.5 weeks before she was due for Remicade inf usion. She was having BM about 10 times per day with blood in each BM. Was also having abdom inal pains. She has since had her Remicade infusion. Rectal bleeding and abdominal pain have improved. She continues to have remained loose or watery. Having up to 10 BM per day. Waking up in the night to have BM. Last Remicade was last week. Admits to not taking Imuran. It has been at least 1 month since she has taken this medicati on. She is taken Asacol TID. She is also taking Prednisone daily. She was supposed to remain on Prednisone 40 mg daily u ntil full effect of Imuran. She had started Prednisone taper about 2 weeks ago. She is decreasing prednisone by 5 mg ea ch week. She notes that she woke up on with shortness of breath. Also having nasal co ngestion. She continues to gain weight while on her prednisone. Denies fevers or chills. Allergies Allergen Reactions Sulfa Antibiotics Swelling "swelling of tongue" Past Medical History Diagnosis Date Ulcerative colitis (HCC) Anemia History of blood transfusion Ectopic Inflammatory arthritis (HCC) Past Surgical History Procedure Date Ectopic surgery unk Colonoscopy 12/25/2013 COLONOSCOPY ; Laterality: N/A; Surgeon: Aris Schmid MD; Location: [facility] Family History Problem Relation Age of Onset [...] No narrative on file Review of systems: Constitutional: Complains of weight gain as noted above. Denies fevers or chills. Respiratory: Complains of shortness of breath, constant coughing, and wheezing. Gastrointestinal:Negative except as stated above. Cardiovascular:Denies chest pain, palpitations, or swelling to legs Physical exam: General: well developed, well nourished, in no acute distress. Head: normocephalic and atraumatic Eyes: Sclera clear Mouth: MMM Lungs: Clear to auscultate bilaterally and throughout Heart: regular rate and rhythm Abdomen: Soft, mildly tender to palpation over left lower quadrant, non distended, bowel tones p ositive times 4 quadrants, negative Colunga's sign, negative rebound tenderness, no guarding, no hepatosplenomegaly palpated. Rectal: Will be done prior to procedure Msk: symmetrical with no deformity, with normal posture and gait, normal strength. Extremities: no clubbing, cyanosis, edema, or deformity noted Neurologic: no focal deficits, cranial nerves II-XII grossly intact Skin: intact without lesions or rashes. Psych: alert and cooperative; normal mood and affect; normal attention span and concentration. No visits with results within 1 Month(s) from this visit. Latest known visit with results is: Hospital Outpatient Visit on 07/02/2014 Component Date Value Range Status WBC 07/02/2014 9.3 4.0-11.0 K/uL Final RBC 07/02/2014 4.32 3.70-5.20 M/uL Final Hgb 07/02/2014 9.9* 11.5-16.0 g/dL Final Hct 07/02/2014 31.8* 34.0-47.0 % Final MCV 07/02/2014 73.7* 83.0-101.0 fL Final MCH 07/02/2014 22.9* 28.0-35.0 pg Final MCHC 07/02/2014 31.0* 32.0-36.0 g/dL Final RDW 07/02/2014 17.2* <15.0 % Final Platelet Count 07/02/2014 225 140-440 K/uL Final MPV 07/02/2014 10.6 Final % Neutrophils 07/02/2014 72.4 45.0-82.0 % Final % Lymphocytes 07/02/2014 16.0* 20.0-45.0 % Final % Monocytes 07/02/2014 7.8 4.0-12.0 % Final % Eosinophils 07/02/2014 3.1 0.0-5.0 % Final % Basophils 07/02/2014 0.7 0.0-1.0 % Final Absolute Neutrophils 07/02/2014 6.80 1.80-8.50 K/uL Final Absolute Lymphocytes 07/02/2014 1.50 0.60-3.20 K/uL Final Absolute Monocytes 07/02/2014 0.70 0.00-1.00 K/uL Final Absolute Eosinophils 07/02/2014 0.30 0.00-0.40 K/uL Final Absolute Basophils 07/02/2014 0.10 0.00-0.10 K/uL Final CRP 07/02/2014 0.70 <8.00 mg/L Final ESR 07/02/2014 21* <20 mm/hr Final Assessment 1. Ulcerative colitis, with rectal bleeding (HCC) 2. Diarrhea Up to 10 loose and/or watery stools daily. Plan: Patient is to followup with her primary care provider tomorrow regarding respiratory sympto ms. Recommend patient have chest x-ray due to immunosuppression. Attempted to order this f or today. Patient states that she does not have time today and will be seeing her primary p rovider tomorrow. Patient states that she we'll also like to have her laboratory tests drawn tomorrow with he r primary provider. Recommend CBC, CRP, and ESR to determine if any active inflammation. Recommend annual TB skin test due to immunosuppression related to Remicade therapy. History main on prednisone 30 mg daily. Will consider further prednisone tapers after colo noscopy. Patient to have colonoscopy for further evaluation. The procedural techniques, risk s, indications, and alternatives were discussed. Among the risks, are perforation, bleeding , infection, allergic/adverse reactions to medications, and cardiovascular complications. E ach of these could result in hospitalization, additional procedures (including surgery), or other life threatening complications. Patient verbalized understanding. Risk factors to col o-rectal cancer discussed with patient including smoking, obesity, excessive red meat ingest ion, advancing age and first degree family relative with history of colo-rectal cancer discu ssed with patient. Patient to call with any questions or concerns prior to procedure. Last colonoscopy was 12/2013. At that time she was found to have cruz colitis. She is to hold Imuran until she is evaluated for current respiratory symptoms. Once respira tory symptoms are better controlled, will restart medication. She is to have CMP, amylase an d lipase done 7 days after starting medication. Will follow up with results. Patient is to call with any question or concerns. Any fevers, chills, chest pain, SOB or other serious symptoms patient is to call the office or go to ER . Cc: Carlos Díaz This note was dictated using voice recognition software. Please contact me if there are an y questions regarding its content. documented in t his encounter Miscellaneous Notes Addendum Note - Shmuel Avalos RN - 10/30/2014 11:12 AM PST Addended by: SHMUEL AVALOS on: 10/30/2014 11:12 Modules accepted: Orders documented in this encounter Plan of Treatment +--------+ + + + + | Date | Type | Specialty | Care Team | Description | +--------+ + + + + | 06/04/ | Virtual | Gastroenterology | Natalie, | | | 2019 | Office | | [address] | | | | Visit | | [place], | | | | | | [place] [address] | | | | | | [phone] | | | | | | | | +--------+ + + + + | 07/09/ | Virtual | Gastroenterology | Osito Bowen | | | 2019 | Office | | MD Jonathan [address] | | | | Visit | | [place] [address] | | | | | | [phone] | | | | | | | | +--------+ + + + + + + +--------+ + + | Name | Type | Priori | Associated Diagnoses | Order Schedule | | | | ty | | | + + +--------+ + + | Ambulatory referral | Outpatient | Routin | Ulcerative | Expected: | | to Gastroenterology | Referral | e | colitis, with rectal | 11/06/2014, Expires: | | [facility] | | | bleeding (HCC) | 10/30/2015 | | | | | Diarrhea | | + + +--------+ + + documented as of this encounter Visit Diagnoses + + | Diagnosis | + + | Ulcerative colitis, with rectal bleeding - Primary | + + | Diarrhea | + + documented in this encounter
--- OUTSIDE RECORDS SUMMARY | ~2020-06-03 | XMS | Encounter Summary ---
Demographics + + + | Address | [address] | | | [place] [address] | + + + | Home Phone | | + + + | Preferred Language | Unknown | + + + | Marital Status | Single | + + + | Yarsanism Affiliation | 1013 | + + + | Race | White | + + + | Ethnic Group | Not or | + + + Author + + + | Author | [facility] | | | and [place] | + + + | Organization | [facility] | | | and [place] | + + + | Address | Unknown | + + + | Phone | Unavailable | + + + Support + + + + + | Name | Relationship | Address | Phone | + + + + + | Marilyn Diallo | ECON | [place] | | | | | [address] | | + + + + + Care Team Providers + +------+ + | Care Theology Professor Name | Role | Phone | + +------+ + | Carlos Díaz NP | PCP | | + +------+ + Reason for Visit +--------+--------+ + | Reason | Onset | Comments | | | Date | | +--------+--------+ + | Other | 03/26/ | | | | 2014 | | +--------+--------+ + Encounter Details +--------+ + + + + | Date | Type | Department | Care Team | Description | +--------+ + + + + | 03/26/ | Telephone | [facility] [place] | [place], | Other | | 2014 | | GASTROENTEROLOGY | KYRA Singer [address] | | | | | [address] | [address] | | | | | [address] [place], [place] | [place], [place] | | | | | [address] | [address] | | | | | [phone] | | | +--------+ + + + [...] this encounter Miscellaneous Notes Telephone Encounter - Graciela Narayanan Master of Arts - 03/27/2015 4:02 PM PDTSpoke to Ria, per Dr Schmid she is to taper the prednisone by 5 mg per week. Patient verbalized under standing. She is taking 20 mg this week, will move down to 15 mg next week etc.until gone.El ectronically signed by Graciela Narayanan Master of [employer] at 03/27/2015 4:04 PM PDTTelephone Encounter - Graciela Narayanan, Master of Arts - 03/27/2015 10:41 AM PDTAnthonyamado called back, s he started her Humira March 18, she wants to know if she is suppose to stop taking her prednis one? She is taking 20 mg per day at this time. Will ask Dr. Schmid and get back to her. Christae nt verbalized understanding.Electronically signed by Graciela Narayanan Master of Arts at 10:43 AM PDTTelephone Encounter - Graciela Narayanan, Master of Arts - 03/26/2015 9:46 AM PDTLeft message for patient to return call. elephone Encounter - Adriana Wallace - 015 9:17 AM PDTRia called for Gela wanting to ask a question about her medication. She st arted a new one but wants to know if she continues the "old ones." Call her back at the [phone] documented in this enc ounter Plan of Treatment +--------+ + + + + | Date | Type | Specialty | Care Team | Description | +--------+ + + + + | 06/04/ | Virtual | Gastroenterology | Natalie, | | | 2019 | Office | | [address] | | | | Visit | | [place], | | | | | | [place] [address] | | | | | | [phone] | | | | | | | | +--------+ + + + + | 07/09/ | Virtual | Gastroenterology | Osito Bowen | | | 2019 | Office | | MD Jonathan [address] | | | | Visit | | [place] [address] | | | | | | [phone] | | | | | | | | +--------+ + + + + documented as of this encounter Visit Diagnoses Not on filedocumented in this encounter
--- OUTSIDE RECORDS SUMMARY | ~2020-06-03 | XMS | Encounter Summary ---
Demographics + + + | Address | [address] | | | [place] [address] | + + + | Home Phone | | + + + | Preferred Language | Unknown | + + + | Marital Status | Single | + + + | Presybeterian Affiliation | 1013 | + + + | Race | White | + + + | Ethnic Group | Not or | + + + Author + + + | Author | [facility] | | | and [place] | + + + | Organization | [facility] | | | and [place] | + + + | Address | Unknown | + + + | Phone | Unavailable | + + + Support + + + + + | Name | Relationship | Address | Phone | + + + + + | Marilyn Diallo | ECON | [place] | | | | | [address] | | + + + + + Care Team Providers + +------+ + | Care Forgeman Helper Name | Role | Phone | + +------+ + | No, Physician | PCP | Unavailable | + +------+ + Reason for Visit +--------+--------+ + | Reason | Onset | Comments | | | Date | | +--------+--------+ + | Other | 07/06/ | asacol | | | 2012 | | +--------+--------+ + Encounter Details +--------+ + + + + | Date | Type | Department | Care Team | Description | +--------+ + + + + | 07/06/ | Telephone | [facility] | [facility], | Other (asacol) | | 2012 | | GASTROENTEROLOGY | KYRA Singer [address] | | | | | [address] [place] | [address] | | | | | [address] | [place], [place] | | | | | [address] | [address] | | | | | [phone] | | | +--------+ + + + [...] Miscellaneous Notes Telephone Encounter - Graciela Narayanan - 07/06/2013 12:42 PM PDTSpoke to patient, she amrie d the asacol was never sent to [facility] [place]. Spoke to Danielle, she said to go ahead an d call it in, this was done. P M PDTTelephone Encounter - Debbie Pinon - 07/06/2013 11:41 AM PDTPatient called in and said that only one of her prescriptions went through at the pharmacy, but she states she is supp ose to be receiving two. Please call the patient back. documented in this encounter Plan of Treatment [...] | | | | | | [place] [address] | | | | | | [phone] | | | | | | | | +--------+ + + + + | 07/09/ | Virtual | Gastroenterology | Osito Bowen | | 2019 | Office | | MD Jonathan [address] | | | | Visit | | [place] [address] | | | | | | [phone] | | | | | | | | +--------+ + + + + documented as of this encounter Visit Diagnoses Not on filedocumented in this encounter"
--- OUTSIDE RECORDS SUMMARY | ~2020-06-03 | XMS | Encounter Summary ---
Demographics + + + | Address | [address] | | | [place] [address] | + + + | Home Phone [...] | Marilyn Diallo | ECON | [place] | | | | | [address] | | + + + + + Care Team Providers + +------+ + | Care Internal Corrosion Specialist Name | Role | Phone | + +------+ + | Carlos Díaz NP | PCP | | + +------+ + Reason for Visit +--------+--------+ + | Reason | Onset | Comments | | | Date | | +--------+--------+ + | Other | 01/08/ | need labs | | | 2013 | | +--------+--------+ + Encounter Details +--------+ + + + + | Date | Type | Department | Care Team | Description | +--------+ + + + + | 01/08/ | Telephone | [facility] | [facility], | Other (need labs) | | 2013 | | GASTROENTEROLOGY | KYRA Singer [address] | | | | | [address] [place] | [address] | | | | | [address] [place] | [place] | | | | | [address] | [address] | | | | | [phone] | | | +--------+ + + + [...] Telephone Encounter - Graciela Narayanan Master of [employer] - 01/08/2014 3:19 PM PDTKeri call wants labs done at [facility] Orders were faxed. elephone Encounter - Graciela Narayanan Maste r of [employer] - 01/08/2014 3:05 PM PDTLeft message for patient to return call to let us know wh ere to send lab orders?Electronically signed by Graciela Narayanan Master of [employer] at 014 3:06 PM PDTTelephone Encounter - Elana Rodriguez RN - 01/08/2014 3:01 PM PDTLab orders are printed please call patient to have them drawn for appt next week. documented in this encounter Plan of Treatment +--------+ + + + + | Date | Type | Specialty | Care Team | Description | +--------+ + + + + | 06/04/ | Virtual | Gastroenterology | Natalie, | | 2019 | Office | | [address] | | | | Visit | | [place] | | | | | | [place] [address] | | | | | | [phone] | | | | | | | | +--------+ + + + + | 07/09/ | Virtual | Gastroenterology | Osito Bowen | | 2019 | Office | | MD Jonathan [address] | | | | Visit | | [place] [address] | | | | | | [phone] | | | | | | | | +--------+ + + + + + +------+--------+ + + | Name | Type | Priori | Associated Diagnoses | Order Schedule | | | | ty | | | + +------+--------+ + + | CBC with | Lab | Routin | Ulcerative | Expected: | | Differential | | e | colitis, unspecified | 01/08/2014, Expires: | | | | | | 01/08/2015 | + +------+--------+ + + | Sedimentation Rate | Lab | Routin | Ulcerative | Expected: | | | | e | colitis, unspecified | 01/08/2014, Expires: | | | | | | 01/08/2015 | + +------+--------+ + + | C-Reactive Protein | Lab | Routin | Ulcerative | Expected: | | | | e | colitis, unspecified | 01/08/2014, Expires: | | | | | | 01/08/2015 | + +------+--------+ + + documented as of this encounter Visit Diagnoses + + | Diagnosis | + + | Ulcerative colitis, unspecified - Primary | + + documented in this encounter"
--- OUTSIDE RECORDS SUMMARY | ~2020-06-03 | XMS | Encounter Summary ---
Demographics + + + | Address | [address] | | | [place] [address] | + + + | Home Phone | | + + + | Preferred Language | Unknown | + + + | Marital Status | Single | + + + | Congregation Affiliation | 1013 | + + + | Race | White | + + + | Ethnic Group | Not or | + + + Author + + + | Author | [facility] | | | and [place] | + + + | Organization | [facility] | | | and [place] | + + + | Address | Unknown | + + + | Phone | Unavailable | + + + Support + + + + + | Name | Relationship | Address | Phone | + + + + + | Marilyn Diallo | ECON | [place] | | | | | [address] | | + + + + + Care Team Providers + +------+ + | Care Aircraft Mechanic Name | Role | Phone | + +------+ + | Carlos Díaz NP | PCP | | + +------+ + Encounter Details +--------+ + + + + | Date | Type | Department | Care Team | Description | +--------+ + + + + | 05/26/ | Orders Only | [facility] | Natalie, | Ulcerative colitis | | 2019 | | GASTROENTEROLOGY | [address] | with rectal bleeding | | | | [address] | [address] [place], | (HCC); Ulcerative | | | | [place], [place] | [place] [address] | colitis, unspecified | | | | [address] | [phone] | with unspecified | | | | [phone] | | complications (HCC) | +--------+ + + + + Social [...] [place], | | | | | | [place] [address] | | | | | | [phone] | | | | | | | | +--------+ + + + + | 07/09/ | Virtual | Gastroenterology | Osito Bowen | | | 2019 | Office | | MD Jonathan [address] | | | | Visit | | [place] [address] | | | | | | [phone] | | | | | | | | +--------+ + + + + + + +--------+ + + | Name | Type | Priori | Associated Diagnoses | Order Schedule | | | | ty | | | + + +--------+ + + | Quantiferon Gold | Lab | Routin | Ulcerative colitis | Expected: | | | | e | with rectal | 02/07/2019, Expires: | | | | | bleeding (HCC) | 02/08/2020 | + + +--------+ + + | Clostridium | Microbiolog | Routin | Ulcerative colitis | Expected: | | difficile A and B | y | e | with rectal | 02/14/2019, Expires: | | EIA | | | bleeding (HCC) | 02/15/2020 | + + +--------+ + + | CBC with | Lab | Routin | Ulcerative colitis | Expected: | | Differential | | e | with rectal | 03/08/2019, Expires: | | | | | bleeding (HCC) | 02/15/2020 | + + +--------+ + + | Sedimentation Rate | Lab | Routin | Ulcerative colitis | Expected: | | | | e | with rectal | 02/14/2019, Expires: | | | | | bleeding (HCC) | 02/15/2020 | + + +--------+ + + | Comprehensive | Lab | Routin | Ulcerative colitis | Expected: | | Metabolic Panel | | e | with rectal | 02/14/2019, Expires: | | | | | bleeding (HCC) | 02/15/2020 | + + +--------+ + + | C-Reactive Protein | Lab | Routin | Ulcerative colitis | Expected: | | | | e | with rectal | 02/14/2019, Expires: | | | | | bleeding (HCC) | 02/15/2020 | + + +--------+ + + | Quantiferon TB Gold | Lab | Routin | Ulcerative | Expected: | | | | e | colitis, unspecified | 02/14/2019, Expires: | | | | | with unspecified | 02/15/2020 | | | | | complications (HCC) | | + + +--------+ + + documented as of this encounter Visit Diagnoses + + | Diagnosis | + + | Ulcerative colitis with rectal bleeding (HCC) Other ulcerative colitis | + + | Ulcerative colitis, unspecified with unspecified complications (HCC) | + + documented in this encounter"
--- OUTSIDE RECORDS SUMMARY | ~2020-06-03 | XMS | Encounter Summary ---
Demographics + + + | Address | [address] | | | [place] [address] | + + + | Home Phone | | + + + | Preferred Language | Unknown | + + + | Marital Status | Single | + + + | Yazdanism Affiliation | 1013 | + + + | Race | White | + + + | Ethnic Group | Not or | + + + Author + + + | Author | [facility] | | | and [place] | + + + | Organization | [facility] | | | and [place] | + + + | Address | Unknown | + + + | Phone | Unavailable | + + + Support + + + + + | Name | Relationship | Address | Phone | + + + + + | Marilyn Diallo | ECON | [place] | | | | | [address] | | + + + + + Care Team Providers + +------+ + | Care Art Historian Name | Role | Phone | + +------+ + PCP | Unavailable | + +------+ + Encounter Details +--------+ + + + + | Date | Type | Department | Care Team | Description | +--------+ + + + + | 04/09/ | Hospital | [facility] | | | | 2010 | Encounter | [facility] | | | | | | [address] | | | | | | [place] | | | | | | [address] | | | | | | [phone] | | | +--------+ + + + + Social History + +-------+ +--------+------+ | Tobacco Use | Types | Packs/Day | Years | Date | | | | | Used | | + +-------+ +--------+------+ | Never Assessed | | | | | + +-------+ +--------+------+ + + + | Sex Assigned at | Date Recorded | | | | + + + | Not on file | | + + + documented as of this encounter Miscellaneous Notes Op Note - Zan Peng MD - 04/09/2011 8:17 AM PDTPatient Name: Ria Hastings Gender: F Procedure Date: 04/09/2011 10:10 AM Date of : 1980 Age: 31 Admit Type: Outpatient Room: Endo Room 2 Note Status: Finalized Attending MD: Zan Peng MD Procedure: Colonoscopy Indications: Chronic diarrhea, Follow-up of ulcerative colitis Providers: Zan Peng MD, Adriana Love RN, Nathalie Del Real, Finishing Machine Operator Referring M D: JOSEPHINE Jason, MPH Medicines: Midazolam 5 mg IV, Meperidine 100 mg IV Complications: No immediate complications. Estima adams blood loss: None. Procedure: - Prior to the procedure, a History and Physical was performed, and patient medications and allergies were reviewed. The risks and benefits of the procedure and the sedation options and risks were discussed with the patient. All questions were answered and informed consent was obtained. Patient identification and proposed procedure were verified by the physician and the nurse in the procedure room. Mental Status Examination: alert and oriented. Airway Examination: Mallampati Class I (tonsillar pillars visualized). Respiratory Examination: clear to auscultation. CV Examination: normal. Prophylactic Antibiotics: The patient does not require prophylactic antibiotics. Prior Anticoagulants: The patient has taken no previous anticoagulant or antiplatelet agents. ASA Grade Assessment: II - A patient with mild systemic disease. After reviewing the risks and benefits, the patient was deemed in satisfactory condition to undergo the procedure. The anesthesia plan was to use moderate sedation / analgesia (conscious sedation). Immediately prior to administration of medications, the patient was re-assessed for adequacy to receive sedatives. The physical status of the patient was re-assessed after the procedure. After I obtained informed consent, the scope was passed under direct vision. Throughout the procedure, the patient's blood pressure, pulse, and oxygen saturations were monitored continuously. The endoscope was introduced through the anus and advanced to the splenic flexure. The colonoscopy was performed without difficulty. The patient tolerated the procedure well. The quality of the bowel preparation was good. Findings: The perianal and digital rectal examinations were normal. A diffuse area of severely congested, erythematous, hemorrhagic, inflamed and ulcerated mucosa was found from rectum to splenic flexure. Biopsies were taken with a cold forceps for histology. Estimated blood loss was minimal. Impression: - Congested, erythematous, hemorrhagic, inflamed and ulcerated mucosa from rectum to splenic flexure. This was biopsied. - Extensive ulcerative colitis. This was biopsied. Recommendation: - The patient will be observed post-procedure, until all discharge criteria are met. - Discharge patient to home (ambulatory). - Await pathology results. - Use prednisone 40 mg by mouth once a day. - Use Asacol 800 mg by mouth three times a day. - Return to nurse practitioner in 2 weeks. Zan Peng MD Signed Date: 04/09/2011 10:27 AM Number of Addenda: 0 Note initiated on 04/09/2011 10:12 AM Scope Withdrawal Time: N/A Total Procedure Duration Time: 03 minutes 17 seconds <Electronically Signed by Zan Peng MD> 04/09/11 1028 documented in this encounter Plan of Treatment +--------+ + + + + | Date | Type | Specialty | Care Team | Description | +--------+ + + + + | 06/04/ | Virtual | Gastroenterology | Natalie, | | 2019 | Office | | [address] | | | | Visit | | [place] | | | | | | [place] [address] | | | | | | [phone] | | | | | | | | +--------+ + + + + | 07/09/ | Virtual | Gastroenterology | Osito Bowen | | | 2020 | Office | | MD Jonathan [address] | | | | Visit | | [place] [address] | | | | | | [phone] | | | | | | | | +--------+ + + + + documented as of this encounter Visit Diagnoses Not on filedocumented in this encounter"
--- OUTSIDE RECORDS SUMMARY | ~2020-06-03 | XMS | Encounter Summary ---
Demographics + + + | Address | [address] | | | [place] [address] | + + + | Home Phone | | + + + | Preferred Language | Unknown | + + + | Marital Status | Single | + + + | Church Affiliation | 1013 | + + + | Race | White | + + + | Ethnic Group | Not or | + + + Author + + + | Author | [facility] | | | and [place] | + + + | Organization | [facility] | | | and [place] | + + + | Address | Unknown | + + + | Phone | Unavailable | + + + Support + + + + + | Name | Relationship | Address | Phone | + + + + + | Marilyn Diallo | ECON | [place] | | | | | [address] | | + + + + + Care Team Providers + +------+ + | Care Car Shunter Name | Role | Phone | + +------+ + PCP | Unavailable | + +------+ + Encounter Details +--------+ + + + + | Date | Type | Department | Care Team | Description | +--------+ + + + + | 04/09/ | Hospital | [facility] | | | | 2010 | Encounter | MED CTR [facility] OP | | | | | | [address] | | | | | | [place] | | | | | | [address] | | | | | | [phone] | | | +--------+ + + + [...] MD, Adriana Love RN, Nathalie Del Real, Colleter Referring M D: JOSEPHINE Jason, MPH Medicines: [...] 2019 | Office | | [address] | | | | Visit | | [place] | | | | | | [place] [address] | | | | | | [phone] | | | | | | | | +--------+ + + + + | 07/09/ | Virtual | Gastroenterology | Osito Bowen | | | 2020 | Office | | MD Jonathan [address] | | | | Visit | | [place] [address] | | | | | | [phone] | | | | | | | | +--------+ + + + + documented as of this encounter Visit Diagnoses Not on filedocumented in this encounter"
--- OUTSIDE RECORDS SUMMARY | ~2020-06-03 | XMS | Encounter Summary ---
Demographics + + + | Address | [address] | | | [place] [address] | + + + | Home Phone [...] + + + | Author | [facility] | | | and [place] | + + + | Organization | [facility] | | | and [place] | + + + | Address | Unknown | + + + | Phone | Unavailable | + + + Support + + + + + | Name | Relationship | Address | Phone | + + + + + | Marilyn Diallo | ECON | [place] | | | | | [address] | | + + + + + Care Team Providers + +------+ + | Care Summer Analyst Name | Role | Phone | + +------+ + | Carlos Díaz NP | PCP | | + +------+ + Reason for Visit + + + | Reason | Comments | + + + | Medication Refill | Prednisone 10 mg | + + + Encounter Details +--------+--------+ + + + | Date | Type | Department | Care Team | Description | +--------+--------+ + + + | 07/19/ | Refill | [facility] | Cruz Gonzalez | Medication Refill | | 2019 | | GASTROENTEROLOGY | MD Timothy [address] | (Prednisone 10 mg) | | | | [address] | [address] [place] | | | | | [place] | [address] | | | | | [address] | | | | | | [phone] | | | +--------+--------+ + + + [...] this encounter Miscellaneous Notes Telephone Encounter - Cliff Bojorquez, Shoe Lay Out Planner - 07/25/2019 12:58 PM PDTPatient aware Rx sent. elep jagruti Encounter - nAdrés, Osito Castillo MD - 07/25/2019 11:49 AM PDTSigned Electronically sign ed by Osito Bowen MD at 07/25/2019 11:49 AM PDTTelephone Encounter - Cliff Bojorquez, Shoe Lay Out Planner - 07/24/2019 2:50 PM PDTLast seen: 01/26/[address] Felix cary and 01/03/[address] Bowen Last refill: 02/14/19 Next appt scheduled: 08/17/[address] Andrés Bowen, please review and send Rx if able. Thank you docum ented in this encounter Plan of Treatment +--------+ + + + + | Date | Type | Specialty | Care Team | Description | +--------+ + + + + | 06/04/ | Virtual | Gastroenterology | Natalie, | | | 2019 | Office | | [address] | | | | Visit | | [place], | | | | | | [place] [address] | | | | | | [phone] | | | | | | | | +--------+ + + + + | 07/09/ | Virtual | Gastroenterology | Osito Bowen | | | 2019 | Office | | MD Jonathan [address] | | | | Visit | | [place] [address] | | | | | | [phone] | | | | | | | | +--------+ + + + + documented as of this encounter Visit Diagnoses Not on filedocumented in this encounter"
--- OUTSIDE RECORDS SUMMARY | ~2020-06-03 | XMS | Encounter Summary ---
Demographics + + + | Address | [address] | | | [place] [address] | + + + | Home Phone | | + + + | Preferred Language | Unknown | + + + | Marital Status | Single | + + + | Anabaptist Affiliation | 1013 | + + + [...] + | Marilyn Diallo | ECON | [place] | | | | | [address] | | + + + + + Care Team Providers + +------+ + | Care Surveillance Dual Rate Officer Name | Role | Phone | + +------+ + | Carlos Díaz NP | PCP | | + +------+ + Reason for Visit + +--------+ + | Reason | Onset | Comments | | | Date | | + +--------+ + | Medication Refill | 11/06/ | | | | 2020 | | + +--------+ + Encounter Details +--------+--------+ + + + | Date | Type | Department | Care Team | Description | +--------+--------+ + + + | 11/06/ | Refill | [facility] | Osito Bowen | Medication Refill | | 2020 | | GASTROENTEROLOGY | MD Jonathan [address] | | | | | [address] | [place] [address] | | | | | [place], [place] | [phone] | | | | | [address] | | | | | | [phone] | | | +--------+--------+ + + + [...] this encounter Miscellaneous Notes Telephone Encounter - Magdi Lucio, Spray Blender - [facility]. Medication:Prednisone Dosage: 10 mg tab Frequency: Take 1 & 1/2 tablets by mouth once daily Last office visit:01/03/2019 Last refill:09/13/2019 Next f/u:N/A Dr. Bowen, please review & refill if appropriate. Thank you, [place] ele phone Encounter - Karma Sanz - 11/06/2019 4:04 PM PSTPharmacy: [facility] Lanie maribel Rollins, is calling regarding Medication Refill and is requesting the following: Medication requested: predniSONE (DELTASONE) 10 mg tablet Quantity requested: 90 day supply If not a controlled substance, has patient called the pharmacy and checked that Rx is not a lready there: Yes Caller is aware of 24-48 hour wait time per refill policy: Yes Patient would like a call when it has been sent. documented in this encou nter Plan of Treatment +--------+ + + + + | Date | Type | Specialty | Care Team | Description | +--------+ + + + + | 06/04/ | Virtual | Gastroenterology | Natalie, | | | 2019 | Office | | [address] | | | | Visit | | [place], | | | | | | [place] [address] | | | | | | [phone] | | | | | | | | +--------+ + + + + | 07/09/ | Virtual | Gastroenterology | Osito Bowen | | | 2019 | Office | | MD [address] | | | | Visit | | [place] [address] | | | | | | [phone] | | | | | | | | +--------+ + + + + documented as of this encounter Visit Diagnoses Not on filedocumented in this encounter"
--- OUTSIDE RECORDS SUMMARY | ~2020-06-03 | XMS | Encounter Summary ---
Demographics + + + | Address | [address] | | | [place] [address] | + + + | Home Phone | | + + + | Preferred Language | Unknown | + + + | Marital Status | Single | + + + | Latter-Day Affiliation | 1013 | + + + | Race | White | + + + | Ethnic Group | Not or | + + + Author + + + | Author | [facility] | | | and [place] | + + + | Organization | [facility] | | | and [place] | + + + | Address | Unknown | + + + | Phone | Unavailable | + + + Support + + + + + | Name | Relationship | Address | Phone | + + + + + | Marilyn Diallo | ECON | [place] | | | | | [address] | | + + + + + Care Team Providers + +------+ + | Care Roofing Superintendent Name | Role | Phone | + +------+ + | Carlos Díaz NP | PCP | | + +------+ + Reason for Visit +--------+--------+ + | Reason | Onset | Comments | | | Date | | +--------+--------+ + | Other | 07/22/ | | | | 2014 | | +--------+--------+ + Encounter Details +--------+ + + + + | Date | Type | Department | Care Team | Description | +--------+ + + + + | 07/22/ | Telephone | [facility] [place] | [place], | Other | | 2014 | | GASTROENTEROLOGY | [address] | | | | | [address] [place] | [address] [address] | | | | | [address] [place], [place] | [place], [place] | | | | | [address] | [address] | | | | | [phone] | | | +--------+ + + + [...] Miscellaneous Notes Telephone Encounter - Graciela Narayanan Electric Cutter Operator - 07/24/2015 1:24 PM PDTSent p atient a letter to have her call. elephone Encounter - Graciela Narayanan Electric Cutter Operator - 1 2:22 PM PDTLeft message for patient. Would like to know how she is doing? Lucrecia would like her to see Dr. Schmid if still having problems. documented in this encounter Plan of Treatment [...] | | | | | | [place] [address] | | | | | | [phone] | | | | | | | | +--------+ + + + + | 07/09/ | Virtual | Gastroenterology | Osito Bowen | | 2019 | Office | | MD Jonathan [address] | | | | Visit | | [place] [address] | | | | | | [phone] | | | | | | | | +--------+ + + + + documented as of this encounter Visit Diagnoses Not on filedocumented in this encounter"
--- OUTSIDE RECORDS SUMMARY | ~2020-06-03 | XMS | Encounter Summary ---
Demographics + + + | Address | [address] | | | [place] [address] | + + + | Home Phone [...] Author + + + | Author | [facility] | | | and [place] | + + + | Organization | [facility] | | | and [place] | + + + | Address | Unknown | + + + | Phone | Unavailable | + + + Support + + + + + | Name | Relationship | Address | Phone | + + + + + | Marilyn Diallo | [place] | [place] | | | | | [address] | | + + + + + Care Team Providers + +------+ + | Care Undercar Specialist Name | Role | Phone | + +------+ + | No, Physician | PCP | Unavailable | + +------+ + Reason for Visit + +--------+ + | Reason | Onset | Comments | | | Date | | + +--------+ + | Appointment | 06/26/ | | | | 2012 | | + +--------+ + Encounter Details +--------+ + + + + | Date | Type | Department | Care Team | Description | +--------+ + + + + | 06/26/ | Telephone | [facility] | [facility], | Appointment | | 2012 | | GASTROENTEROLOGY | KYRA [address] | | | | | [address] | [address] | | | | | [address] [place], [place] | [place], [place] | | | | | [address] | [address] | | | | | [phone] | | | +--------+ + + + [...] Telephone Encounter - Elana Rodriguez RN - 06/28/2013 10:50 AM PDTBrie has said multiple yolanda es that patient needs to be seen prior to prescribing medications, advised there are opening s tomorrow patient said she has her appt for tomorrow but is rescheduling due to she is elaine kelli a house for somebody advised there are openings to be seen in the next 24 hours, she ve rbalized understanding. elephone Encounter - Debbie Pinon - 06/28/2013 10:07 AM PDTPatient called in to reschedule her appointment and to ask the nurse if it would be possible to put her on her medication be fore she is seen because she is in need of it. Please call the patient back on her home numb er. documented in this encoun ter Plan of Treatment +--------+ + + + + | Date | Type | Specialty | Care Team | Description | +--------+ + + + + | 06/04/ | Virtual | Gastroenterology | Natalie, | | | 2019 | Office | | KYRA [address] | | | | Visit | | [place] | | | | | | [place] [address] | | | | | | [phone] | | | | | | | | +--------+ + + + + | 07/09/ | Virtual | Gastroenterology | Osito Bowen | | | 2019 | Office | | MD Yenifer Castillo | | | | Visit | | [place] [address] | | | | | | [phone] | | | | | | | | +--------+ + + + + documented as of this encounter Visit Diagnoses Not on filedocumented in this encounter"
--- OUTSIDE RECORDS SUMMARY | ~2020-06-03 | XMS | Encounter Summary ---
Demographics + + + | Address | [address] | | | [place] [address] | + + + | Home Phone [...] [place] | | | | | [address] | | + + + + + Care Team Providers + +------+ + | Care Operater Name | Role | Phone | + +------+ + | Carlos Díaz NP | PCP | | + +------+ + Encounter Details +--------+ + + + + | Date | Type | Department | Care Team | Description | +--------+ + + + + | 04/01/ | Abstract | [facility] [place] | [facility], | | | 2016 | | GASTROENTEROLOGY | KYRA Singer [address] | | | | | [address] | [address] | | | | | [address] [place], [place] | [place], [place] | | | | | [address] | [address] | | | | | [phone] | | | +--------+ + + + [...] 2019 | Office | | [address] | | | | Visit | | [place], | | | | | | [place] [address] | | | | | | [phone] | | | | | | | | +--------+ + + + + | 07/09/ | Virtual | Gastroenterology | Osito Bowen | | | 2020 | Office | | MD Jonathan [address] | | | | Visit | | [place] [address] | | | | | | [phone] | | | | | | | | +--------+ + + + + documented as of this encounter Procedures + +--------+ + + + | Procedure Name | Priori | Date/Time | Associated Diagnosis | Comments | | | ty | | | | + +--------+ + + + | EXTERNAL LAB: CBC | Routin | 07/02/2015 | | Results for this | | | e | | | procedure are in the | | | | | | results section. | + +--------+ + + + | CBC WITH | Routin | 07/02/2015 | | Results for this | | DIFFERENTIAL | e | | | procedure are in the | | | | | | results section. | + +--------+ + + + documented in this encounter Results External Lab: CBC (07/02/2015) + + + + + + | Component | Value | Ref Range | Performed | Pathologist | | | | | At | Signature | + + + + + + | WBC, | 7.2 | 4.5 - 11 | EXTERNAL | | | External | | | LAB | | + + + + + + | HGB, | 9.9 (A) | 12 - 16 | EXTERNAL | | | External | | | LAB | | + + + + + + | HCT, | 23.8 (A) | 35 - 45 | EXTERNAL | | | External | | | LAB | | + + + + + + | PLT, | 241 | 140 - 440 | EXTERNAL | | | External | | | LAB | | + + + + + + | Neutrophils | 71.9 | 39 - 80 | EXTERNAL | | | %, | | | LAB | | | External | | | | | + + + + + + | Lymphocytes | 13.4 (A) | 24 - 44 | EXTERNAL | | | %, | | | LAB | | | External | | | | | + + + + + + | Monocytes | 11.6 | 0 - 12 | EXTERNAL | | | %, External | | | LAB | | + + + + + + | Eosinophils | 2.1 | 0 - 6 | EXTERNAL | | | %, | | | LAB | | | External | | | | | + + + + + + | RBC, | 4.68 | 3.8 - 5.1 | EXTERNAL | | | External | | | LAB | | + + + + + + | MCV, | 70 (A) | 81 - 99 | EXTERNAL | | | External | | | LAB | | + + + + + + | RDW, | 16.3 (A) | 10 - 15 | EXTERNAL | | | External | | | LAB | | + + + + + + + + | Resulting Agency Comment | + + | [facility] | + + + +---------+ + + | Performing | Address | City/State/Zipcode | Phone Number | | Organization | | | | + +---------+ + + | EXTERNAL LAB | | | | + +---------+ + + CBC with Differential (07/02/2015) + + + + + + | Component | Value | Ref Range | Performed | Pathologist | | | | | At | Signature | + + + + + + | MCH | 21.0 (A) | 27.0 - 33.0 pg | | | + + + + + + | MCHC | 30.0 | % | | | + + + + + + | % Basophils | 0.9 | 1.0 % | | | + + + + + + | Erythrocyte | 33 (A) | 0 - 20 mm/hr | | | | | | | | | | Sedimentati | | | | | | on Rate | | | | | + + + + + + | CRP | 1.23 | mg/L | | | + + + + + + + + | Specimen | + + | Blood specimen | | (specimen) | + + documented in this encounter Visit Diagnoses Not on filedocumented in this encounter"
--- OUTSIDE RECORDS SUMMARY | ~2020-06-03 | XMS | Encounter Summary ---
Demographics + + + | Address | [address] | | | [place] [address] | + + + | Home Phone [...] [place] | | | | | [address] | | + + + + + Care Team Providers + +------+ + | Care Front End Web Designer Name | Role | Phone | + +------+ + | Carlos Díaz NP | PCP | | + +------+ + Reason for Visit +--------+--------+ + | Reason | Onset | Comments | | | Date | | +--------+--------+ + | Other | 06/24/ | | | | 2015 | | +--------+--------+ + Encounter Details +--------+ + + + + | Date | Type | Department | Care Team | Description | +--------+ + + + + | 06/24/ | Telephone | [facility] [place] | [place], | Other | | 2015 | | GASTROENTEROLOGY | KYRA Singer [address] | | | | | [address] | [address] | | | | | [address] [place], [place] | [place], [place] | | | | | [address] | [address] | | | | | [phone] | | | +--------+ + + + [...] encounter Miscellaneous Notes Telephone Encounter - Graciela Narayanan, Laser Engraver - 06/24/2016 1:51 PM PDTPatien t called about getting lab work done, wants Danielle to put in order. Told her that Danielle sent he r a dismissal letter from this clinic. I read the letter to her. Patient verbalized understa nding. P DTdocumented in this encounter Plan of Treatment +--------+ + + + + | Date | Type | Specialty | Care Team | Description | +--------+ + + + + | 06/04/ | Virtual | Gastroenterology | Natalie, | | | 2019 | Office | | [address] | | | | Visit | | [place] | | | | | | [place] [address] | | | | | | [phone] | | | | | | | | +--------+ + + + + | 07/09/ | Virtual | Gastroenterology | Osito Bowen | | 2019 | Office | | MD Jonathan [address] | | | | Visit | | [place] [address] | | | | | | [phone] | | | | | | | | +--------+ + + + + documented as of this encounter Visit Diagnoses Not on filedocumented in this encounter"
--- OUTSIDE RECORDS SUMMARY | ~2020-06-03 | XMS | Encounter Summary ---
Demographics + + + | Address | [address] | | | [place] [address] | + + + | Home Phone | | + + + | Preferred Language | Unknown | + + + | Marital Status | Single | + + + | Mormonism Affiliation | [id number] | + + + [...] [place] | | | | | [address] | | + + + + + Care Team Providers + +------+ + | Care Visual Basic Developer Name | Role | Phone | + +------+ + | Carlos Díaz NP | PCP | | + +------+ + Reason for Visit + +--------+ + | Reason | Onset | Comments | | | Date | | + +--------+ + | Appointment | 06/14/ | | | | 2013 | | + +--------+ + Encounter Details +--------+ + + + + | Date | Type | Department | Care Team | Description | +--------+ + + + + | 06/14/ | Telephone | [facility] | [facility], | [facility] | | 2013 | | GASTROENTEROLOGY | KYRA [address] | | | | | [address] | [address] | | | | | [address] [place], [place] | [place], [place] | | | | | [address] | [address] | | | | | [phone] | | | +--------+ + + + [...] this encounter Miscellaneous Notes Telephone Encounter - Kasia Rooney - 06/14/2014 5:02 PM PDTPatient scheduled on 07/09/14. Patient states 3rd infusion will be on 07/02/14.Electronically signed by Kasia Rooney at 01/2014 5:03 PM PDTTelephone Encounter - Graciela Dobson, Master of Arts - 06/14/2014 4: 06 PM PDTPlease call patient for a follow up appointment with Danielle. Thank you elephone Encounter - Graciela Dobson Master of Arts - 06/14/2014 4:06 PM PDTMessage copied by DEBORA DOBSON on WedJun 14, 2014 1606 ------ Message from: MONIKA KNOX Created: [facility] May 08, 2014 1144 Regarding: needs an office appt Call patient and schedule an office appt for after induction of remicade had 1st dose on 05/14/14. appt should be after 06/25/14 when she has completed her 3rd infusionElectronically si gned by Graciela Dobson Master of Arts at 06/14/2014 4:06 PM PDTdocumented in this encou nter Plan of Treatment [...] | | | | | | [place] [address] | | | | | | [phone] | | | | | | | | +--------+ + + + + | 07/09/ | Virtual | Gastroenterology | Osito Bowen | | | 2019 | Office | | MD Jonathan [address] | | | | Visit | | [place] [address] | | | | | | [phone] | | | | | | | | +--------+ + + + + documented as of this encounter Visit Diagnoses Not on filedocumented in this encounter"
--- OUTSIDE RECORDS SUMMARY | ~2020-06-03 | XMS | Encounter Summary ---
Demographics + + + | Address | [address] | | | [place] [address] | + + + | Home Phone | | + + + | Preferred Language | Unknown | + + + | Marital Status | Single | + + + | Evangelical Affiliation | 1013 | + + + [...] [place] | | | | | [address] | | + + + + + Care Team Providers + +------+ + | Care Rotary Dryer Operator Name | Role | Phone | [...] + + + | Closed | | | Diagnoses | | | | | | | Ulcerative | | | | | | | colitis, | | | | | | | unspecified | | | | | | | Diarrhea | | | | | | | Obesity (BMI | | | | | | | 35.0-39.9 | | | | | | | without | | | | | | | comorbidity) | | | | | | | Diarrhea | | | | | | | [787.91]Ulce | | | | | | | rative | | | | | | | colitis, | | | | | | | unspecified | | | | | | | (HCC) | | | | | | | [556.9]Obesi | | | | | | | ty (BMI | | | | | | | 35.0-39.9 | | | | | | | without | | | | | | | comorbidity) | | | | | | | [278.00] | | | | | | | | | | | | | | Procedures | | | | | | | COLONOSCOPY | | | +--------+--------+ + + + + Encounter Details +--------+ + + + + | Date | Type | Department | Care Team | Description | +--------+ + + + + | 11/27/ | Hospital | [facility] | Aris Schmid MD | Diarrhea (Primary | | 2015 | Encounter | MED CTR OR PRE OP | [address] | Dx); Inflammatory | | | | [address] | [place], [place] | bowel disease | | | | [facility] [place] [address] | [address] | | | | | [phone] | [phone] | | | | | | | [...] + + + | Blood Pressure | 94/60 | 11/27/2014 12:30 PM | | | | | PST | | + + + + + | Pulse | 78 | 11/27/2014 12:30 PM | | | | | PST | | + + + + + | Temperature | 36.5 C (97.7 F) | 11/27/2014 9:38 AM | | | | | PST | | + + + + + | Respiratory Rate | 18 | 11/27/2014 12:30 PM | | | | | PST | | + + + + + | Oxygen Saturation | 99% | 11/27/2014 12:30 PM | | | | | PST | | + + + + + | Inhaled Oxygen | - | - | | | Concentration | | | | + + + + + | Weight | 91.6 kg (202 lb) | 11/27/2014 9:38 AM | | | | | PST | | + + + + + | Height | 165.1 cm (5' 5") | 11/27/2014 9:38 AM | | | | | PST | | + + + + + | Body Mass Index | 33.61 | 11/27/2014 9:38 AM | | | | | PST | | + + + + + documented in this encounter Discharge Instructions Instructions Aris Schmid MD - 11/26/2014Patient Discharge Instructions after an Endosco py Procedure ? You may resume your regular diet after discharge. ? Do not drive, operate machinery, make critical decisions or do activities that require co ordination or balance for 24hrs. ? Resume normal medications unless otherwise instructed. ? If biopsies were taken, the physician s office will contact you within 7-10 days. ? If a colonoscopy was performed, then you may continue to expel large amounts of air from your rectum. Please call the physician who did your procedure at [phone] if you have any questions or experience any of the following: ? Increasing abdominal pain, nausea, or vomiting. ? Chills and fever over 101F. ? New abdominal swelling or bloating. ? Signs of rectal bleeding (black or red stool. If you cannot get a hold of your physician, then call the [facility] [phone] . If necessary, report to the Emergency Department at [facility]. Quit smoking: If you smoke or have smoked within the last year, quitting is the most import ant thing you can do to protect and improve your health. documented in this encounter Medications at Time [...] + + + +---------+ + + | InFLIXimab | Inject into the | | 0 | | | | (REMICADE IV) | vein. | | | | 5 | + + + +---------+ [...] + + + +---------+ + + | sodium chloride | Inject 1,000 mg into | | 0 | | | | 0.9% QS Base 250 mL | the vein Every 30 | | | | 6 | | with iron dextran 50 | days. | | | | | | mg/mL SOLN 1,000 mg | | | | | | + + + +---------+ + + documented as of this encounter Progress Sania Menard RN - 11/27/2014 1:22 PM PSTUp to bathroom. Return to room and dc'd iv i ntact. Home in good and stable condition.Electronically signed by Sania Najera RN at 1:23 PM PSTdocumented in this encounter H&P Aris Myers MD - 11/27/2014 11:10 AM PSTPatient interviewed, history and physical, symp toms reviewed VS signs noted, no change from previous H&P or assessment and plan.Electronic ally signed by Aris Schmid MD at 11/27/2014 11:10 AM PSTRosamariaLucrecia, STITCH BONDING MACHINE TENDER HELPER - 10/30 10:33 AM PST Ria Hastings is a 34 y.o. female [...] Laterality: N/A; Surgeon: Aris Schmid MD; Location: [facility] Family History Problem Relation Age of Onset [...] documented in t his encounter Miscellaneous Notes Sedation Documentation - Adriana Love RN - 11/27/2014 11:06 AM PSTModerate sedat ion education given documented in this encounter Plan of Treatment [...] | | | | | | [place] [address] | | | | | | [phone] | | | | | | | | +--------+ + + + + | 07/09/ | Virtual | Gastroenterology | Osito Bowen | | | 2020 | Office | | MD Jonathan [address] | | | | Visit | | [place] [address] | | | | | | [phone] | | | | | | | | +--------+ + + + + documented as of this encounter Procedures + +--------+ + + + | Procedure Name | Priori | Date/Time | Associated Diagnosis | Comments | | | ty | | | | + +--------+ + + + | PATHOLOGY - EXTERNAL | | 11/30/2014 | | | | SCAN | | 12:00 AM | | | | | | PST | | | + +--------+ + + + | COLONOSCOPY | | 11/27/2014 | Ulcerative | | | | | 11:06 AM | colitis, unspecified | | | | | PST | Diarrhea Obesity | | | | | | (BMI 35.0-39.9 | | | | | | without comorbidity) | | | | | | (HCC) | | + +--------+ + + + | COLONOSCOPY | Routin | 11/27/2014 | | Results for this | | | e | 11:01 AM | | procedure are in the | | | | PST | | results section. | + +--------+ + + + | POCT TEST, | STAT | 11/27/2014 | | Results for this | | URINE, QUAL | | 10:50 AM | | procedure are in the | | | | PST | | results section. | + +--------+ + + + documented in this encounter Results COLONOSCOPY (11/27/2014 11:01 AM PST) + + | Specimen | + + | | + + + + -+ | Narrative | Performed At | + + -+ | | [facility] | | GastroenterologyPatient Name: Ria HastingsProcedure Date: 11/27/2014 | [facility] | | 11:01 AMMRN: [id number] #: [id number] of : | | | 1980Admit Type: AmbulatoryAge: 34Room: [facility] 02Gender: FemaleNote | | | Status: FinalizedAttending MD: Aris Schmid, MDProcedure: | | | ColonoscopyIndications: Diarrhea, | | | HematocheziaProviders: Aris Schmid MD, Adriana Salazar | | | MAGGIE Love, Nathalie Del Real, | | | TechnicianMedicines: Midazolam 7 mg IV, Meperidine 100 mg | | | IVComplications: No immediate complications.Procedure: | | | Pre-Anesthesia Assessment: - Prior to the procedure, a History | | | and Physical was performed, and patient medications and | | | allergies were reviewed. The patient is competent. The risks | | | and benefits of the procedure and the sedation options and | | | risks were discussed with the patient. All questions were | | | answered and informed consent was obtained. Patient identification and | | | proposed procedure were verified by the physician, the nurse | | | and the chief technician x ray in the pre-procedure area in the endoscopy | | | suite. Mental Status Examination: alert and oriented. Airway | | | Examination: normal oropharyngeal airway and neck mobility and | | | Mallampati Class II (the uvula but not tonsillar pillars | | | visualized). Respiratory Examination: clear to auscultation. CV | | | Examination: normal. Prophylactic Antibiotics: The patient | | | does not require prophylactic antibiotics. Prior | | | Anticoagulants: The patient has taken no previous anticoagulant or | | | antiplatelet agents. ASA Grade Assessment: II - A patient with | | | mild systemic disease. After reviewing the risks and benefits, | | | the patient was deemed in satisfactory condition to undergo the | | | procedure. The anesthesia plan was to use moderate sedation / | | | analgesia (conscious sedation). Immediately prior to | | | administration of medications, the patient was re-assessed for | | | adequacy to receive sedatives. The heart rate, respiratory | | | rate, oxygen saturations, blood pressure, adequacy of pulmonary | | | ventilation, and response to care were monitored throughout | | | the procedure. The physical status of the patient was re-assessed | | | after the procedure. After I obtained informed consent, | | | the scope was passed under direct vision. Throughout the | | | procedure, the patient's blood pressure, pulse, and oxygen | | | saturations were monitored continuously. The endoscope was | | | introduced through the anus and advanced to the terminal ileum, with | | | identification of the appendiceal orifice and IC valve. The | | | colonoscopy was performed without difficulty. The patient | | | tolerated the procedure well. The quality of the bowel | | | preparation was fair.Findings: The perianal and digital rectal | | | examinations were normal. Inflammation characterized by altered | | | vascularity, congestion (edema), erosions, erythema, | | | friability, granularity, pseudopolyps and confluent ulcerations | | | was found in a continuous and circumferential pattern from the | | | rectum to the cecum. No sites were spared. This was severe in | | | severity. Biopsies were taken with a cold forceps for histology. | | | Verification of patient identification for the specimen was done by | | | the physician and nurse using the patient's name and | | | date. Estimated blood loss was minimal. A sessile polyp | | | was found in the sigmoid colon. The polyp was 3 mm in size. The | | | polyp was removed with a cold biopsy forceps. Resection and | | | retrieval were complete. Verification of patient identification for | | | the specimen was done by the physician and nurse using the | | | patient's name and date. Estimated blood loss was | | | minimal. The terminal ileum appeared normal. Biopsies were taken | | | with a cold forceps for histology. Verification of patient | | | identification for the specimen was done by the physician and | | | nurse using the patient's name and date. Estimated blood | | | loss was minimal.Impression: - Inflammation was found from the | | | rectum to the cecum secondary to pancolitis ulcerative colitis | | | and secondary to pancolitis. Biopsied. - One 3 mm polyp in the | | | sigmoid colon. Resected and retrieved. - The examined portion of | | | the ileum was normal. Biopsied.Recommendation: - Patient has a | | | contact number available for emergencies. The signs and | | | symptoms of potential delayed complications were discussed with the | | | patient. Return to normal activities tomorrow. Written discharge | | | instructions were provided to the patient. - Regular | | | diet. - Discharge patient to home. - Continue present | | | medications. - Await pathology results. - Repeat | | | colonoscopy for surveillance based on pathology results. - | | | Return to GI clinic PRN. - The findings and recommendations were | | | discussed with the patient.Aris Schmid MD11/27/2014 11:44 | | | AMNumber of Addenda: 0Note Initiated On: 11/27/2014 11:01 AMScope | | | Withdrawal Time: 0 hours 9 minutes 16 seconds Total Procedure | | | Duration: 0 hours 13 minutes 32 seconds Scope In: 11:19:20 AMScope | | | Out: 11:32:52 AM [facility], [address] | | | [place] [address] | | | - Continue present medications. | | | - Await pathology results. | | | - Repeat colonoscopy for surveillance based on pathology results. | | | - Return to GI clinic PRN. | | | - The findings and recommendations were discussed with the patient. | | |Aris Schmid MD | | |11/27/2014 11:44 AM | | |Number of Addenda: 0 | | |Note Initiated On: 11/27/2014 11:01 AM | | |Scope Withdrawal Time: 0 hours 9 minutes 16 seconds | | |Total Procedure Duration: 0 hours 13 minutes 32 seconds | | |Scope In: 11:19:20 AM | | |Scope Out: 11:32:52 AM | | | [facility], [address] [place], [place] | | | [address] | | + + -+ + +---------+ + + | Performing | Address | City/State/[facility] | Phone Number | | Organization | | | | + +---------+ + + | [facility] | | | | + +---------+ + + POCT Urine Screen (11/27/2014 10:50 AM PST) + + + + + + | Component | Value | Ref Range | Performed | Pathologist | | | | | At | Signature | + + + + + + | | Negative | | [facility] | | | Test, | | | [facility] | | | Urine, POC | | | [facility] | | | | | | LABORATORY | | + + + + + + | Internal QC | Acceptable | | [facility] | | | | | | [facility] | | | [facility] | | | | | | LABORATORY | | + + + + + + + + | Specimen | + + | Urine specimen | | (specimen) | + + + + + + + | Performing | Address | City/State/Zipcode | Phone Number | | Organization | | | | + + + + + | [facility] | [address] [facility] | [place], [place] | [phone] | | [facility] | | [address] | | | LABORATORY | | | | + + + + + documented in this encounter Visit Diagnoses + + | Diagnosis | + + | Diarrhea - Primary | + + | Inflammatory bowel disease Other and unspecified noninfectious gastroenteritis and | | colitis | + + documented in this encounter Administered Medications + +---------+ +------+-------+------+ | Medication Order | MAR | Action | Dose | Rate | Site | | | Action | Date | | | | + +---------+ +------+-------+------+ | lactated ringers (LR) infusion | New Bag | 11/27/19 | | 100 | | | at 100 mL/hr, Intravenous, | | 15 10:25 | | mL/hr | | | CONTINUOUS, Starting 11/27/14 | | AM PST | | | | | at 1000, Pre-op | | | | | | + +---------+ +------+-------+------+ +---+---+ | | | +---+---+ + +-------+ +--------+---+---+ | meperidine (DEMEROL) 100 mg/mL | Given | 11/27/19 | 100 mg | | | | injection PRN, Starting Tue | | 15 11:11 | | | | | 11/27/14 at 1113 | | AM PST | | | | + +-------+ +--------+---+---+ +---+---+ | | | +---+---+ + +-------+ +------+---+---+ | midazolam (VERSED) 5 mg/mL | Given | 11/27/19 | 2 mg | | | | injection PRN, Starting Tue | | 15 11:21 | | | | | 11/27/14 at 1113 | | AM PST | | | | + +-------+ +------+---+---+ +-------+ +------+---+---+ | Given | 11/27/19 | 2 mg | | | | | 15 11:18 | | | | | | AM PST | | | | +-------+ +------+---+---+ | Given | 11/27/19 | 1 mg | | | | | 15 11:15 | | | | | | AM PST | | | | +-------+ +------+---+---+ +---+---+ | | | +---+---+ documented in this encounter
--- OUTSIDE RECORDS SUMMARY | ~2020-06-03 | XMS | Encounter Summary ---
Demographics + + + | Address | [address] | | | [place] [address] | + + + | Home Phone | | + + + | Preferred Language | Unknown | + + + | Marital Status | Single | + + + | Baptist Affiliation | 1013 | + + + | Race | White | + + + | Ethnic Group | Not or | + + + Author + + + | Author | [facility] | | | and [place] | + + + | Organization | [facility] | | | and [place] | + + + | Address | Unknown | + + + | Phone | Unavailable | + + + Support + + + + + | Name | Relationship | Address | Phone | + + + + + | Marilyn Diallo | ECON | [place] | | | | | [address] | | + + + + + Care Team Providers + +------+ + | Care Vocational Director Name | Role | Phone | [...] + + | 08/23/ | Telephone | [facility] | [facility], | [facility] | | 2013 | | GASTROENTEROLOGY | KYRA [address] | | | | | [address] [place] | [address] | | | | | [address] [place], [place] | [place], [place] | | | | | [address] | [address] | | | | | [phone] | | | +--------+ + + + [...] AM PSTFollow up made with Danielle for 11/12/13. elephone Encounter - Kasia Rooney - 08/23/2014 9:28 AM PSTLeft voicemail to schedule follow up with Danielle next week or the of September. Follow up is for Ulcerative Colitis. 9: 29 AM PSTdocumented in this encounter Plan of Treatment +--------+ + + + + | Date | Type | Specialty | Care Team | Description | +--------+ + + + + | 06/04/ | Virtual | Gastroenterology | Natalie, | | | 2019 | Office | | [address] | | | | Visit | | [place] | | | | | | [place] [address] | | | | | | [phone] | | | | | | | | +--------+ + + + + | 07/09/ | Virtual | Gastroenterology | Osito Bowen | | 2019 | Office | | MD Jonathan [address] | | | | Visit | | [place] [address] | | | | | | [phone] | | | | | | | | +--------+ + + + + documented as of this encounter Visit Diagnoses Not on filedocumented in this encounter"
--- OUTSIDE RECORDS SUMMARY | ~2020-06-03 | XMS | Encounter Summary ---
Demographics + + + | Address | [address] | | | [place] [address] | + + + | Home Phone | | + + + | Preferred Language | Unknown | + + + | Marital Status | Single | + + + | Oriental Orthodox Affiliation | 1013 | + + + [...] + | Marilyn Diallo | ECON | [place] | | | | | [address] | | + + + + + Care Team Providers + +------+ + | Care Staff Readiness Officer Name | Role | Phone | [...] Description | +--------+--------+ + + + | 05/26/ | Refill | [facility] | [facility], | Medication Refill | | 2013 | | GASTROENTEROLOGY | KYRA [address] | | | | | [address] | [address] | | | | | [address] [place], [place] | [place], [place] | | | | | [address] | [address] | | | | | [phone] | | | +--------+--------+ + + + [...] | | | | | | [place] [address] | | | | | | [phone] | | | | | | | | +--------+ + + + + | 07/09/ | Virtual | Gastroenterology | Osito Bowen | | | 2019 | Office | | MD Jonathan [address] | | | | Visit | | [place] [address] | | | | | | [phone] | | | | | | | | +--------+ + + + + documented as of this encounter Visit Diagnoses Not on filedocumented in this encounter"
--- OUTSIDE RECORDS SUMMARY | ~2020-06-03 | XMS | Encounter Summary ---
Demographics + + + | Address | [address] | | | [place] [address] | + + + | Home Phone | | + + + | Preferred Language | Unknown | + + + | Marital Status | Single | + + + | Mandaeism Affiliation | 1013 | + + + [...] [place] | | | | | [address] | | + + + + + Care Team Providers + +------+ + | Care Director Risk Name | Role | Phone | + +------+ + PCP | Unavailable | + +------+ + Reason for Visit +--------+--------+ + | Reason | Onset | Comments | | | Date | | +--------+--------+ + | Other | 07/11/ | Ria was prescribed an antiinflammatoy by an orthopedic | | | 2011 | doctor and wants to discuss this new medication. | +--------+--------+ + Encounter Details +--------+ + + + + | Date | Type | Department | Care Team | Description | +--------+ + + + + | 07/11/ | Telephone | [facility] | [facility], | Other (Ria was | | 2011 | | GASTROENTEROLOGY | KYRA [address] | prescribed an | | | | [address] | [address] | antiinflammatoy by | | | | [address] [place] | [place] | an orthopedic doctor | | | | [address] | [address] | and wants to | | | | [phone] | | discuss this new | | | | | | medication.) | +--------+ + + + + Social [...] Notes Telephone Encounter - Graciela Narayanan - 07/11/2012 11:30 AM [email or web address] message for jennifer Rollins ad the note that Danielle wrote. If she has questions to return call. elephone Encounter - Lucrecia Blank ARNP - 07/11/2012 11:19 AM PDTMeloxicam is an NSAID and it can worsen her colitis. I cannot tell he r it is safe. She needs to be on medication for her UC. The last time she stopped her diseas e was more difficult to control. She also missed her last follow up appointment. Thank you elephone Randy Narayanan Graciela - 07/11/2012 10:42 AM PDTSpoke to Ria, her orthopedic Dr. Put her on meloxicam 15 mg once daily. She is wondering if this is all right to take, she has ulcer ative colitis. She quit taking her asacol 3 months ago due to not having any insurance cover age. She has been doing all right with out it. Has been taking meloxicam for one week with n o adverse reactions. Please let her know if she should continue on this medication.Geovany tubbs signed by Graciela Narayanan at 07/11/2012 10:46 AM PDTdocumented in this encounter Plan of [...] | | | | | | [place] [address] | | | | | | [phone] | | | | | | | | +--------+ + + + + | 07/09/ | Virtual | Gastroenterology | Osito Bowen | | | 2019 | Office | | MD Jonathan [address] | | | | Visit | | [place] [address] | | | | | | [phone] | | | | | | | | +--------+ + + + + documented as of this encounter Visit Diagnoses Not on filedocumented in this encounter"
--- OUTSIDE RECORDS SUMMARY | ~2020-06-03 | XMS | Encounter Summary ---
Demographics + + + | Address | [address] | | | [place] [address] | + + + | Home Phone | | + + + | Preferred Language | Unknown | + + + | Marital Status | Single | + + + | Uatsdin Affiliation | 1013 | + + + | Race | White | + + + | Ethnic Group | Not or | + + + Author + + + | Author | [facility] | | | and [place] | + + + | Organization | [facility] | | | and [place] | + + + | Address | Unknown | + + + | Phone | Unavailable | + + + Support + + + + + | Name | Relationship | Address | Phone | + + + + + | Marilyn Diallo | ECON | [place] | | | | | [address] | | + + + + + Care Team Providers + +------+ + | Care Heavy Equipment Operator/Paver Name | Role | Phone | + +------+ + PCP | Unavailable | + +------+ + Encounter Details +--------+ + + + + | Date | Type | Department | Care Team | Description | +--------+ + + + + | 01/04/ | Hospital | [facility] | Robi Rubin MD | | | 2006 - | Encounter | [facility] | [address] [facility] | | | | | [facility] [address] | [place], [place] | | | 01/06/ | | [place], | [address] | | | 2006 | | [place] [address] | | | | | | [phone] | | | +--------+ + + + [...] | | | | | | [place] [address] | | | | | | [phone] | | | | | | | | +--------+ + + + + | 07/09/ | Virtual | Gastroenterology | Osito Bowen | | 2019 | Office | | MD Jonathan [address] | | | | Visit | | [place] [address] | | | | | | [phone] | | | | | | | | +--------+ + + + + documented as of this encounter Visit Diagnoses Not on filedocumented in this encounter"
--- OUTSIDE RECORDS SUMMARY | ~2020-06-03 | XMS | Encounter Summary ---
Demographics + + + | Address | [address] | | | [place] [address] | + + + | Home Phone | | + + + | Preferred Language | Unknown | + + + | Marital Status | Single | + + + | Pentecostal Affiliation | 1013 | + + + | Race | White | + + + | Ethnic Group | Not or | + + + Author + + + | Author | [facility] | | | and [place] | + + + | Organization | [facility] | | | and [place] | + + + | Address | Unknown | + + + | Phone | Unavailable | + + + Support + + + + + | Name | Relationship | Address | Phone | + + + + + | Marilyn Diallo | ECON | [place], [place] | | | | | [address] | | + + + + + Care Team Providers + +------+ + | Care Workforce Development Specialist Name | Role | Phone | + +------+ + PCP | Unavailable | + +------+ + Encounter Details +--------+ + + + + | Date | Type | Department | Care Team | Description | +--------+ + + + + | 12/04/ | Hospital | [facility] | | | | 2010 | Encounter | MED CTR GENERIC OP | | | | | | CONV DEPT [address] | | | | | | [place], | | | | | | [place] [address] | | | | | | [phone] | | | +--------+ + + + [...] | | | | | | [place] [address] | | | | | | [phone] | | | | | | | | +--------+ + + + + | 07/09/ | Virtual | Gastroenterology | Osito Bowen | | 2019 | Office | | MD Yenifer Castillo | | | | Visit | | [place] [address] | | | | | | [phone] | | | | | | | | +--------+ + + + + documented as of this encounter Visit Diagnoses Not on filedocumented in this encounter"
--- OUTSIDE RECORDS SUMMARY | ~2020-06-03 | XMS | Encounter Summary ---
Demographics + + + | Address | [address] | | | [place] [address] | + + + | Home Phone | | + + + | Preferred Language | Unknown | + + + | Marital Status | Single | + + + | Taoist Affiliation | 1013 | + + + | Race | White | + + + | Ethnic Group | Not or | + + + Author + + + | Author | [facility] | | | and [place] | + + + | Organization | [facility] | | | and [place] | + + + | Address | Unknown | + + + | Phone | Unavailable | + + + Support + + + + + | Name | Relationship | Address | Phone | + + + + + | Marilyn Diallo | ECON | [place] | | | | | [address] | | + + + + + Care Team Providers + +------+ + | Care Inside Sales Territory Manager Name | Role | Phone | + +------+ + | Carlos Díaz NP | PCP | | + +------+ + Encounter Details +--------+ + + + + | Date | Type | Department | Care Team | Description | +--------+ + + + + | 07/15/ | Abstract | [facility] [place] | [facility], | | | 2013 | | GASTROENTEROLOGY | KYRA [address] | | | | | [address] [place] | [address] | | | | | [address] [place], [place] | [place], [place] | | | | | [address] | [address] | | | | | [phone] | | | +--------+ + + + [...] 2019 | Office | | [address] | | | | Visit | | [place], | | | | | | [place] [address] | | | | | | [phone] | | | | | | | | +--------+ + + + + | 07/09/ | Virtual | Gastroenterology | Osito Bowen | | | 2020 | Office | | MD [address] | | | | Visit | | [place] [address] | | | | | | [phone] | | | | | | | | +--------+ + + + + documented as of this encounter Visit Diagnoses Not on filedocumented in this encounter"
--- OUTSIDE RECORDS SUMMARY | ~2020-06-03 | XMS | Encounter Summary ---
Demographics + + + | Address | [address] | | | [place] [address] | + + + | Home Phone | | + + + | Preferred Language | Unknown | + + + | Marital Status | Single | + + + | Judaism Affiliation | 1013 | + + + [...] + | Marilyn Diallo | ECON | [place] | | | | | [address] | | + + + + + Care Team Providers + +------+ + | Care Dope Maintenance Worker Name | Role | Phone | + +------+ + PCP | Unavailable | + +------+ + Encounter Details +--------+ + + + + | Date | Type | Department | Care Team | Description | +--------+ + + + + | 04/02/ | Hospital | [facility] | [facility], | | | 2010 | Encounter | MED CTR LABORATORY | [address]RA [address] | | | | | [address] [place] | [address] | | | | | [place], [place] | [place], [place] | | | | | [address] | [address] | | | | | [phone] | | | +--------+ + + + [...] [place] | | | | | | [place] [address] | | | | | | [phone] | | | | | | | | +--------+ + + + + | 07/09/ | Virtual | Gastroenterology | Osito Bowen | | 2019 | Office | | MD [address] | | | | Visit | | [place] [address] | | | | | | [phone] | | | | | | | | +--------+ + + + + documented as of this encounter Visit Diagnoses Not on filedocumented in this encounter"
--- OUTSIDE RECORDS SUMMARY | ~2020-06-03 | XMS | Encounter Summary ---
Demographics + + + | Address | [address] | | | [place] [address] | + + + | Home Phone | | + + + | Preferred Language | Unknown | + + + | Marital Status | Single | + + + | Holiness Affiliation | 1013 | + + + [...] [place] | | | | | [address] | | + + + + + Care Team Providers + +------+ + | Care Certified Residential Medication Aide Name | Role | Phone | + +------+ + | Carlos Díaz NP | PCP | | + +------+ + Reason for Visit + +--------+ + | Reason | Onset | Comments | | | Date | | + +--------+ + | Appointment | 12/13/ | | | | 2013 | | + +--------+ + Encounter Details +--------+ + + + + | Date | Type | Department | Care Team | Description | +--------+ + + + + | 12/13/ | Telephone | [facility] | [facility], | [facility] | | 2013 | | GASTROENTEROLOGY | [address] | | | | | [address] [place] | [address] | | | | | [address] [place], [place] | [place], [place] | | | | | [address] | [address] | | | | | [phone] | | | +--------+ + + + [...] Telephone Encounter - Graciela Narayanan Master of Hepa Wash - 12/13/2013 10:17 AM PSTSpoke to Ria, she is anemic and one of her inflammatory markers is up the other is normal. Told her she needs to keep appointment for colonoscopy.Patient verbalized understanding.Electronicall y signed by Master Boykin of Hepa Wash at 12/13/2013 10:21 AM PSTTelephone Encounter - Debbie Pinon - 12/13/2013 8:47 AM PSTPatient called in to get her results from the blood work she had done, please call her back when you can. documented in this encounter Plan of Treatment +--------+ + + + + | Date | Type | Specialty | Care Team | Description | +--------+ + + + + | 06/04/ | Virtual | Gastroenterology | Natalie, | | | 2019 | Office | | [address] | | | | Visit | | [place] | | | | | | [place] [address] | | | | | | [phone] | | | | | | | | +--------+ + + + + | 07/09/ | Virtual | Gastroenterology | Osito Bowen | | 2019 | Office | | MD [address] | | | | Visit | | [place] [address] | | | | | | [phone] | | | | | | | | +--------+ + + + + documented as of this encounter Visit Diagnoses Not on filedocumented in this encounter"
--- OUTSIDE RECORDS SUMMARY | ~2020-06-03 | XMS | Encounter Summary ---
Demographics + + + | Address | [address] | | | [place] [address] | + + + | Home Phone [...] [place] | | | | | [address] | | + + + + + Care Team Providers + +------+ + | Care Card Player Name | Role | Phone | + [...] [address] | | | | | [address] [place], [place] | [place], [place] | | | | | [address] | [address] | | | | | [phone] | | | +--------+ + + + [...] ectronically signed by Graciela Narayanan Master of Yoke at 03/27/2015 4:04 PM PDTTelephone Encounter - [...] | | | | | | [place] [address] | | | | | | [phone] | | | | | | | | +--------+ + + + + | 07/09/ | Virtual | Gastroenterology | Osito Bowen | | | 2019 | Office | | MD [address] | | | | Visit | | [place] [address] | | | | | | [phone] | | | | | | | | +--------+ + + + + documented as of this encounter Visit Diagnoses Not on filedocumented in this encounter
--- OUTSIDE RECORDS SUMMARY | ~2020-06-03 | XMS | Encounter Summary ---
Demographics + + + | Address | [address] | | | [place] [address] | + + + | Home Phone | | + + + | Preferred Language | Unknown | + + + | Marital Status | Single | + + + | Zoroastrianism Affiliation | 1013 | + + + | Race | White | + + + | Ethnic Group | Not or | + + + Author + + + | Author | [facility] | | | and [place] | + + + | Organization | [facility] | | | and [place] | + + + | Address | Unknown | + + + | Phone | Unavailable | + + + Support + + + + + | Name | Relationship | Address | Phone | + + + + + | Marilyn Diallo | ECON | [place] | | | | | [address] | | + + + + + Care Team Providers + +------+ + | Care Restorative Coordinator Name | Role | Phone | + +------+ + | Carlos Díaz NP | PCP | | + +------+ + Reason for Visit + + + | Reason | Comments | + + + | Ulcerative Colitis | | + + + Encounter Details +--------+---------+ + + + | Date | Type | Department | Care Team | Description | +--------+---------+ + + + | 08/01/ | Office | [facility] | Edd Mckeon, | Ulcerative colitis, | | 2013 | Visit | GASTROENTEROLOGY | [address] | unspecified (Primary | | | | [address] | [address] [place], | Dx) | | | | [address] [place], [place] | [place] [address] | | | | | [address] | [phone] | | | | | [phone] | | | +--------+---------+ + + + [...] + + + | Blood Pressure | 112/74 | 08/01/2014 8:16 AM | | | | | PDT | | + + + + + | Pulse | 90 | 08/01/2014 8:16 AM | | | | | PDT | | + + + + + | Temperature | - | - | | + + + + + | Respiratory Rate | 16 | 08/01/2014 8:16 AM | | | | | PDT | | + + + + + | Oxygen Saturation | - | - | | + + + + + | Inhaled Oxygen | - | - | | | Concentration | | | | + + + + + | Weight | 85 kg (187 lb 8 oz) | 08/01/2014 8:16 AM | | | | | PDT | | + + + + + | Height | 160 cm (5' 3") | 08/01/2014 8:16 AM | | | | | PDT | | + + + + + | Body Mass Index | 33.21 | 08/01/2014 8:16 AM | | | | | PDT | | + + + + + documented in this encounter Progress Notes Edd Mckeon MD - 08/01/2014 8:57 AM PDTFormatting of this note might be different fr om the original. Subjective: Patient ID: Ria Hastings is a 34 y.o. female. HPI Comments: See dictation Filed Vitals: 08/01/14 0816 BP: 112/74 Pulse: 90 Resp: 16 PainSc: 6 PainLoc: Abdomen Allergies Allergen Reactions Sulfa Antibiotics Swelling "swelling of tongue" Past Medical History Diagnosis Date Ulcerative colitis (HCC) Anemia History of blood transfusion Ectopic Inflammatory arthritis (HCC) Past Surgical History Procedure Date Ectopic surgery unk Colonoscopy 12/25/2013 COLONOSCOPY performed by Aris Schmid MD at [facility] Family History Problem [...] Narrative No narrative on file Review of Systems Objective: Physical Exam Constitutional: She is oriented to person, place, and time. She appears well-developed and well-nourished. HENT: Head: Normocephalic and atraumatic. Eyes: Pupils are equal, round, and reactive to light. Cardiovascular: Normal rate and regular rhythm. Pulmonary/Chest: Effort normal and breath sounds normal. Abdominal: Soft. Bowel sounds are normal. She exhibits no distension and no mass. There is no rebound and no guarding. Mild diffuse tenderness to palpation Neurological: She is alert and oriented to person, place, and time. Skin: Skin is warm and dry. vitiligo Psychiatric: She has a normal mood and affect. Assessment: See dictation Plan: See dictation Edd Ruiz MD - 08/01/2014 12:00 AM PDT GASTROENTEROLOGY [address] [place] [address] FAX: [phone] OFFICE VISIT The patient has a significant flare-up of her ulcerative colitis. She was started on Remica de and has had her 3 doses. She was tapered off prednisone and this correlates with a refla re of her symptoms. She is on 2400 mg of Asacol a day. Bowel movements are currently hourly , with blood. She has some abdominal pain, but her vital signs are stable. She is not dehyd rated. She was started on Imuran 50 mg, but misunderstood the instructions so did not get i t refilled after taking it for only 1 week. She did not have any problems with it. The bloo d tests that I have today, from the , are all normal, but she had not been on the Imura n for about 2 weeks, so we need to restart the Imuran. She also has stool studies ordered t o rule out other causes for her flare. Her symptoms would suggest a reflare of her ulcerati ve colitis. ASSESSMENT: REFLARE OF ULCERATIVE COLITIS. PLAN: Restart prednisone 40 mg daily, restart Imuran 50 mg daily. Check blood tests after 1 week on the Imuran. Follow up with Lucrecia Blank in 2 weeks, follow through with the stool studies as ordered. Continue the Asacol, continue the Remicade program. She will call sooner if her symptoms worsen or she is not able to keep up with hydration. Also talked ab out the possibility that if her symptoms are refractory to medical therapy that surgery is another option, but we are not at that point yet. Edd Mckeon M.D. SLIM / TRISTAN JOB #: [id number] signed by Edd Mckeon MD at 08/01/2014 3:10 PM PDTdocume nted in this encounter Miscellaneous Notes Addendum Note - Edd Mckeon MD - 08/02/2014 2:23 PM PDT Addended by: EDD MCKEON on: 08/02/2014 14:23 Modules accepted: Orders documented in this encounter Plan of Treatment +--------+ + + + + | Date | Type | Specialty | Care Team | Description | +--------+ + + + + | 06/04/ | Virtual | Gastroenterology | Natalie, | | | 2019 | Office | | [address] | | | | Visit | | [place] | | | | | | [place] [address] | | | | | | [phone] | | | | | | | | +--------+ + + + + | 07/09/ | Virtual | Gastroenterology | Osito Bowen | | | 2019 | Office | | MD [address] | | | | Visit | | [place] [address] | | | | | | [phone] | | | | | | | | +--------+ + + + + + +------+--------+ + + | Name | Type | Priori | Associated Diagnoses | Order Schedule | | | | ty | | | + +------+--------+ + + | CBC with | Lab | Routin | Ulcerative | Expected: | | Differential | | e | colitis, unspecified | 08/01/2014, Expires: | | | | | | 10/30/2014 | + +------+--------+ + + | Comprehensive | Lab | Routin | Ulcerative | Expected: | | Metabolic Panel | | e | colitis, unspecified | 08/01/2014, Expires: | | | | | | 10/30/2014 | + +------+--------+ + + | Amylase | Lab | Routin | Ulcerative | Expected: | | | | e | colitis, unspecified | 08/01/2014, Expires: | | | | | | 08/01/2015 | + +------+--------+ + + | Lipase | Lab | Routin | Ulcerative | Expected: | | | | e | colitis, unspecified | 08/01/2014, Expires: | | | | | | 08/01/2015 | + +------+--------+ + + documented as of this encounter Visit Diagnoses + + | Diagnosis | + + | Ulcerative colitis, unspecified - Primary | + + documented in this encounter
--- OUTSIDE RECORDS SUMMARY | ~2020-06-03 | XMS | Encounter Summary ---
Demographics + + + | Address | [address] | | | [place] [address] | + + + | Home Phone | | + + + | Preferred Language | Unknown | + + + | Marital Status | Single | + + + | Tenriism Affiliation | 1013 | + + + | Race | White | + + + | Ethnic Group | Not or | + + + Author + + + | Author | [facility] | | | and [place] | + + + | Organization | [facility] | | | and [place] | + + + | Address | Unknown | + + + | Phone | Unavailable | + + + Support + + + + + | Name | Relationship | Address | Phone | + + + + + | Marilyn Diallo | ECON | [place] | | | | | [address] | | + + + + + Care Team Providers + +------+ + | Care Carton Marker Machine Name | Role | Phone | [...] | | | | Therapy | | [place], | Infusion [address] | | | | | remicade-wee | [place], | [address] | | | | | [address] | PRODUCTION BROACHER [address] | [place], | | | | | Procedures | [address] | [place] [address] | | | | | [place] | [address] | Phone: | | | | | INFLIXIMAB | [place], | [phone] | | | | | INJECTION, | [place] [address] | Fax: | | | | | 10 MG [place] IV | Phone: | [phone] | | | | | INFUSION, | [phone] | | | | | | THERAP/PROPH | Fax: | | | | | | /[place] | [phone] | | | | | | ITIAL,1ST | | | | | | | HOUR [facility] OP | | | | | | | INF | | | | | | | REMICADE | | | +--------+--------+ + + + + Encounter Details +--------+ + + + + | Date | Type | Department | Care Team | Description | +--------+ + + + + | 05/28/ | Hospital | [facility] | [facility], | Ulcerative colitis, | | 2013 | Encounter | MED CTR OP INFUSION | KYRA [address] | with rectal bleeding | | | | [address] | [address] | ([facility] (Primary Dx) | | | | [place], [place] | [place], [place] | | | | | [address] | [address] | | | | | [phone] | | | +--------+ + + + [...] + + + | Blood Pressure | 115/63 | 05/28/2014 2:55 PM | | | | | PDT | | + + + + + | Pulse | 78 | 05/28/2014 2:55 PM | | | | | PDT | | + + + + + | Temperature | 37.4 C (99.3 F) | 05/28/2014 12:00 PM | | | | | PDT | | + + + + + | Respiratory Rate | 16 | 05/28/2014 2:55 PM | | | | | PDT | | + + + + + | Oxygen Saturation | 97% | 05/28/2014 2:55 PM | | | | | PDT | | + + + + + | Inhaled Oxygen | - | - | | | Concentration | | | | + + + + + | Weight | 81.2 kg (179 lb) | 05/28/2014 12:00 PM | | | | | PDT | | + + + + + | Height | 165.1 cm (5' 5") | 05/28/2014 12:00 PM | | | | | PDT | | + + + + + | Body Mass Index | 29.79 | 05/28/2014 12:00 PM | | | | | [...] this encounter Miscellaneous Notes Miscellaneous - ANNETTE VELASQUEZ - 06/19/2014 12:00 AM PDT documented in this encounter Plan of Treatment +--------+ + + + + | Date | Type | Specialty | Care Team | Description | +--------+ + + + + | 06/04/ | Virtual | Gastroenterology | Natalie, | | | 2019 | Office | | [address] | | | | Visit | | [place] | | | | | | [place] [address] | | | | | | [phone] | | | | | | | | +--------+ + + + + | 07/09/ | Virtual | Gastroenterology | Osito Bowen | | 2019 | Office | | MD [address] | | | | Visit | | [place] [address] | | | | | | [phone] | | | | | | | [...] | acetaminophen (TYLENOL) tablet | Given | 05/28/20 | 650 mg | | | | 650 mg 650 mg, Oral, ONCE, Mon | | 14 12:34 | | | | | 05/28/14 at 1215, For 1 dose, | | PM PDT | | | | | Administer 30 minutes prior to | | | | | | | inFLIXimab, | | | | | | + +--------+ +--------+------+------+ +---+---+ | | | +---+---+ + +-------+ +-------+---+---+ | diphenhydrAMINE (BENADRYL) | Given | 05/28/20 | 25 mg | | | | tablet 25 mg 25 mg, Oral, ONCE, | | 14 12:34 | | | | | 05/28/14 at 1215, For 1 dose, | | PM PDT | | | | | Administer 30 minutes prior to | | | | | | | inFLIXimab, | | | | | | + +-------+ +-------+---+---+ +---+---+ | | | +---+---+ + +---------+ +--------+-------+---+ | inFLIXimab (REMICADE) 400 mg in | New Bag | 05/28/20 | 400 mg | 125 | | | sodium chloride 0.9% 250 mL | | 14 12:55 | | mL/hr | | | infusion 400 mg (5 mg/kg | | PM PDT | | | | | 81.2 kg), Intravenous, | | | | | | | Administer over 2 Hours, ONCE, | | | | | | | 05/28/14 at 1230, For 1 dose, | | [...] | | | | | administration. WEEK 2, | | | | | | + +---------+ +--------+-------+---+ +---+---+ | | | +---+---+ documented in this encounter
--- OUTSIDE RECORDS SUMMARY | ~2020-06-03 | XMS | Encounter Summary ---
Demographics + + + | Address | [address] | | | [place] [address] | + + + | Home Phone | | + + + | Preferred Language | Unknown | + + + | Marital Status | Single | + + + | Catholic Affiliation | 1013 | + + + | Race | White | + + + | Ethnic Group | Not or | + + + Author + + + | Author | [facility] | | | and [place] | + + + | Organization | [facility] | | | and [place] | + + + | Address | Unknown | + + + | Phone | Unavailable | + + + Support + + + + + | Name | Relationship | Address | Phone | + + + + + | Marilyn Diallo | ECON | [place] | | | | | [address] | | + + + + + Care Team Providers + +------+ + | Care Print And Pattern Designer Name | Role | Phone | + +------+ + | No, Physician | PCP | Unavailable | + +------+ + Reason for Visit + +--------+ + | Reason | Onset | Comments | | | Date | | + +--------+ + | Medication Refill | 11/09/ | | | | 2013 | | + +--------+ + Encounter Details +--------+--------+ + + + | Date | Type | Department | Care Team | Description | +--------+--------+ + + + | 11/09/ | Refill | [facility] [place] | [facility], | Medication Refill | | 2013 | | GASTROENTEROLOGY | [address] | | | | | [address] [place] | [address] | | | | | [address] [place], [place] | [place], [place] | | | | | [address] | [address] | | | | | [phone] | | | +--------+--------+ + + + [...] | | | | | | [place] [address] | | | | | | [phone] | | | | | | | | +--------+ + + + + | 07/09/ | Virtual | Gastroenterology | Osito Bowen | | | 2019 | Office | | MD [address]en[address] Castillo | | | | Visit | | [place] [address] | | | | | | [phone] | | | | | | | | +--------+ + + + + documented as of this encounter Visit Diagnoses Not on filedocumented in this encounter"
--- OUTSIDE RECORDS SUMMARY | ~2020-06-03 | XMS | Encounter Summary ---
Demographics + + + | Address | [address] | | | [place] [address] | + + + | Home Phone | | + + + | Preferred Language | Unknown | + + + | Marital Status | Single | + + + | Taoism Affiliation | 1013 | + + + | Race | White | + + + | Ethnic Group | Not or | + + + Author + + + | Author | [facility] | | | and [place] | + + + | Organization | [facility] | | | and [place] | + + + | Address | Unknown | + + + | Phone | Unavailable | + + + Support + + + + + | Name | Relationship | Address | Phone | + + + + + | Marilyn Diallo | ECON | [place] | | | | | [address] | | + + + + + Care Team Providers + +------+ + | Care Feed Adviser Name | Role | Phone | + +------+ + | Carlos Díaz NP | PCP | | + +------+ + Reason for Visit +--------+--------+ + | Reason | Onset | Comments | | | Date | | +--------+--------+ + | Other | 11/26/ | bowel prep question | | | 2014 | | +--------+--------+ + Encounter Details +--------+ + + + + | Date | Type | Department | Care Team | Description | +--------+ + + + + | 11/26/ | Telephone | [facility] | Aris Schmid MD | Other (bowel prep | | 2015 | | GASTROENTEROLOGY | [address] | question) | | | | [address] [facility] | [place], [place] | | | | | [address] [place], [place] | [address] | | | | | [address] | [phone] | | | | | [phone] | | | +--------+ + + + [...] this encounter Miscellaneous Notes Telephone Encounter - Tahira Avalos RN - 11/26/2014 11:11 AM PSTPatient called rolly crowell why she is to take half dose of prep the day before, half the morning of. I explained the reasoning for split dose prep, patient voiced understanding. No other questions at this yolanda e. elephone Encounter - Debbie Pinon - 11/26/2014 10:01 AM PSTPatient called in with some prep questions. Please call her back LOU. docudanita kat in this encounter Plan of Treatment +--------+ + + + + | Date | Type | Specialty | Care Team | Description | +--------+ + + + + | 06/04/ | Virtual | Gastroenterology | Natalie, | | | 2019 | Office | | [address] | | | | Visit | | [place] | | | | | | [place] [address] | | | | | | [phone] | | | | | | | | +--------+ + + + + | 07/09/ | Virtual | Gastroenterology | Osito Bowen | | 2019 | Office | | MD [address] | | | | Visit | | [place] [address] | | | | | | [phone] | | | | | | | | +--------+ + + + + documented as of this encounter Visit Diagnoses Not on filedocumented in this encounter"
--- OUTSIDE RECORDS SUMMARY | ~2020-06-03 | XMS | Encounter Summary ---
Demographics + + + | Address | [address] | | | [place] [address] | + + + | Home Phone | | + + + | Preferred Language | Unknown | + + + | Marital Status | Single | + + + | Scientology Affiliation | 1013 | + + + [...] [place] | | | | | [address] | | + + + + + Care Team Providers + +------+ + | Care Concrete Stone Fabricator Name | Role | Phone | + +------+ + | Carlos Díaz NP | PCP | | + +------+ + Reason for Visit +--------+--------+ + | Reason | Onset | Comments | | | Date | | +--------+--------+ + | Other | 06/25/ | | | | 2013 | | +--------+--------+ + Encounter Details +--------+ + + + + | Date | Type | Department | Care Team | Description | +--------+ + + + + | 06/25/ | Telephone | [facility] [place] | [place], | Other | | 2013 | | GASTROENTEROLOGY | [address] | | | | | [address] [place] | [address] | | | | | [address] [place], [place] | [place], [place] | | | | | [address] | [address] | | | | | [phone] | | | +--------+ + + + [...] - Graciela Narayanan Master of Arts - 06/26/2014 10:12 AM PDTLeft a me ssage for patient, [employer] is paying for her infusions. I spoke with Gaby in referrals. [employer] pays part of this and the Hospital is contracted with this insurance. So patient is not resp onsible for the rest of this bill.asked that she return call if she has questions. eleph one Encounter - Kasia Rooney Bautista - 06/25/2014 12:31 PM PDTPatient is calling about Remicade inf usions. She states her insurance is not paying for this and she cannot afford this out of po cket. Please call documented in this encounter Plan of Treatment +--------+ + + + + | Date | Type | Specialty | Care Team | Description | +--------+ + + + + | 06/04/ | Virtual | Gastroenterology | Natalie, | | | 2019 | Office | | [address] | | | | Visit | | [place] | | | | | | [place] [address] | | | | | | [phone] | | | | | | | | +--------+ + + + + | 07/09/ | Virtual | Gastroenterology | Osito Bowen | | 2019 | Office | | MD [address] | | | | Visit | | [place] [address] | | | | | | [phone] | | | | | | | | +--------+ + + + + documented as of this encounter Visit Diagnoses Not on filedocumented in this encounter"
--- OUTSIDE RECORDS SUMMARY | ~2020-06-03 | XMS | Encounter Summary ---
Demographics + + + | Address | [address] | | | [place] [address] | + + + | Home Phone | | + + + | Preferred Language | Unknown | + + + | Marital Status | Single | + + + | Yazidi Affiliation | 1013 | + + + [...] [place], [place] | | | | | [address] | | + + + + + Care Team Providers + +------+ + | Care Dictating Machine Typist Name | Role | Phone | + +------+ + PCP | Unavailable | + +------+ + Encounter Details +--------+ + + + + | Date | Type | Department | Care Team | Description | +--------+ + + + + | 12/04/ | Hospital | [facility] | | | | 2010 | Encounter | MED CTR GENERIC OP | | | | | | CONV DEPT [address] | | | | | | [place], | | | | | | [place] [address] | | | | | | [phone] | | | +--------+ + + + [...] | | | | | | [place] [address] | | | | | | [phone] | | | | | | | | +--------+ + + + + | 07/09/ | Virtual | Gastroenterology | Osito Bowen | | 2019 | Office | | MD Yenifer Castillo | | | | Visit | | [place] [address] | | | | | | [phone] | | | | | | | | +--------+ + + + + documented as of this encounter Visit Diagnoses Not on filedocumented in this encounter"
--- OUTSIDE RECORDS SUMMARY | ~2020-06-03 | XMS | Encounter Summary ---
Demographics + + + | Address | [address] | | | [place] [address] | + + + | Home Phone [...] + + + | Author | [facility] | | | and [place] | + + + | Organization | [facility] | | | and [place] | + + + | Address | Unknown | + + + | Phone | Unavailable | + + + Support + + + + + | Name | Relationship | Address | Phone | + + + + + | Marilyn Diallo | ECON | [place] | | | | | [address] | | + + + + + Care Team Providers + +------+ + | Care Park Activities Coordinator Name | Role | Phone | + +------+ + | Carlos Díaz NP | PCP | | + +------+ + Reason for Referral Evaluate & Treat (Urgent) +--------+ + + + + + | Status | Reason | Specialty | Diagnoses / | Referred By | Referred To | | | | | Procedures | Contact | Contact | +--------+ + + + + + | Denied | Specialty | | Diagnoses | | Provider | | | Services | | UC | [facility], | Not, In | | | Required | | (ulcerative | Lucrecia, | System | | | | | colitis), | MEDICAL REVIEW COORDINATOR [address] | [place] | | | | | with rectal | [address] | Health and | | | | | bleeding | [address] | Service | | | | | Iron | [place], | | | | | | deficiency | [place] [address] | | | | | | anemia, | Phone: | | | | | | unspecified | [phone] | | | | | | Procedures | Fax: | | | | | | CHG | [phone] | | | | | | CLINICAL | | | | | | | CHEMISTRY | | | | | | | TEST [address]- | | | | | | | UNLISTED | | | | | | | CODE | | | | | | | (PROMETHIUS | | | | | | | ANSER IFX) | | | +--------+ + + + + + Reason for Visit + + + | Reason | Comments | + + + | Follow-up | procedure | + + + Evaluate & Treat (Routine) +--------+--------+ + + + + | Status | Reason | Specialty | Diagnoses / | Referred By | Referred To | | | | | Procedures | Contact | Contact | +--------+--------+ + + + + | Closed | | Nurse | Diagnoses | Arjun, | Chantal, | | | | Practitioner | Ulcerative | Carlos Rosenbaum, | [place], | | | | / | colitis, | CU[address]TER [address] | MEDICAL REVIEW COORDINATOR [address] | | | | Gastroenterol | unspecified | [facility] | [address] | | | | ogy | follow up | QUAN KHALIL, | [address] | | | | | procedure/mo | [address] | [place], | | | | | fely/arjun | [place], | [place] [address] | | | | | Procedures | [place] [address] | Phone: | | | | | OFFICE | Phone: | [phone] | | | | | VISIT | [phone] | Fax: | | | | | REGULAR | Fax: | [phone] | | | | | | [phone] | | +--------+--------+ + + + + Encounter Details +--------+---------+ + + + | Date | Type | Department | Care Team | Description | +--------+---------+ + + + | 01/24/ | Office | [facility] | [facility], | UC (ulcerative | | 2015 | Visit | GASTROENTEROLOGY | KYRA Singer [address] | colitis), with | | | | [address] [place] | [address] | rectal bleeding | | | | [address] [place], [place] | [place], [place] | ([facility]) (Primary Dx); | | | | [address] | [address] | Iron deficiency | | | | [phone] | | anemia | +--------+---------+ + + + Social History [...] + + + | Blood Pressure | 130/70 | 01/24/2015 9:29 AM | | | | | PDT | | + + + + + | Pulse | 72 | 01/24/2015 9:29 AM | | | | | PDT | | + + + + + | Temperature | 36.6 C (97.9 F) | 01/24/2015 9:29 AM | | | | | PDT | | + + + + + | Respiratory Rate | 16 | 01/24/2015 9:29 AM | | | | | PDT | | + + + + + | Oxygen Saturation | - | - | | + + + + + | Inhaled Oxygen | - | - | | | Concentration | | | | + + + + + | Weight | 93.4 kg (206 lb) | 01/24/2015 9:29 AM | | | | | PDT | | + + + + + | Height | - | - | | + + + + + | Body Mass Index | 36.5 | 12/18/2014 11:33 AM | | | | | PDT | | + + + + + documented in this encounter Progress Notes Lucrecia Blank ARNP - 01/24/2015 9:49 AM PDTFormatting of this note might be differe nt from the original. Ria Hastings is a 34 y.o. female here for followup ulcerative colitis. History of present illness: Continues to have rectal bleeding and about 8 BM daily despite Remicade, Asacol, and Predni sone 30 mg daily. Stools are soft. Last Remicade was about 5 weeks ago. Does not notice any improvement in bowels after infusi ons. Denies rashes mouth, sores, or joint pains. Notes increased stress due to split up with boyfriend again. Is taking iron injections. She has been told that these injections are not helping. Allergies Allergen Reactions Sulfa Antibiotics Swelling "swelling of tongue" Past Medical History Diagnosis Date Ulcerative colitis (HCC) Anemia History of blood transfusion Ectopic Inflammatory arthritis (HCC) Past Surgical History Procedure Laterality Date Ectopic surgery unk Colonoscopy 12/25/2013 COLONOSCOPY ; Laterality: N/A; Surgeon: Aris Schmid MD; Location: [facility] MEDICAL PROCE DURE UNIT Colonoscopy N/A 11/27/2014 Procedure: COLONOSCOPY; Surgeon: Aris Schmid MD; Location: [facility] MEDICAL PROCEDURE UNI T Sigmoid [...] 11/27/2014, Discharged on 11/27/2014 Component Date Value Range Status POC Test, Urine 11/27/2014 Negative Final Internal QC 11/27/2014 Acceptable Final Assessment 1. UC (ulcerative colitis), with rectal bleeding (HCC) Ambulatory referral to Favio potter (chantal) Plan: Due to continued symptoms despite Remicade, need to determine if patient has developed anti bodies against Remicade or if her level of Remicade is not therapeutic. Ordered blood tests to determine this. If no antibodies and low drug levels, will consider either shortening the duration of infus ions and/or increasing the dosage. If antibodies against Remicade found, will consider switching to either in Entyvio or Humir a. She is to continue with prednisone and Asacol as prescribed. Our goal continues to be the tapering of prednisone. Have not been able to accomplish this as of yet due to recurrent sy mptoms as well as significant chronic active colitis found on colonoscopy 11/27/2014. Will follow up with results. Patient is [...] [place] | | | | | | [place] [address] | | | | | | [phone] | | | | | | | | +--------+ + + + + | 07/09/ | Virtual | Gastroenterology | Osito Bowen | | | 2019 | Office | | MD Jonathan [address] | | | | Visit | | [place] [address] | | | | | | [phone] | | | | | | | | +--------+ + + + + + + +--------+ + + | Name | Type | Priori | Associated Diagnoses | Order Schedule | | | | ty | | | + + +--------+ + + | Ambulatory referral | Outpatient | Routin | Ulcerative colitis | Expected: 01/28/2015 | | to Gastroenterology | Referral | e | with rectal | ([facility]), | | ([facility]) | | | bleeding (HCC) | Expires: 01/24/2016 | + + +--------+ + + documented as of this encounter Visit Diagnoses + + | Diagnosis | + + | UC (ulcerative colitis), with rectal bleeding - Primary | + + | Iron deficiency anemia Iron deficiency anemia, unspecified | + + documented in this encounter
--- OUTSIDE RECORDS SUMMARY | ~2020-06-03 | XMS | Encounter Summary ---
Demographics + + + | Address | [address] | | | [place] [address] | + + + | Home Phone | | + + + | Preferred Language | Unknown | + + + | Marital Status | Unknown | + + + | Yazidism Affiliation | Unknown | + + + | Race | Unknown | + + + | Ethnic Group | Unknown | + + + Author + + + | Author | [facility] | + + + | Organization | [facility] | + + + | Address | Unknown | + + + | Phone | Unavailable | + + + Care Team Providers + +------+ + | Care Analog Design Engineer Name | Role | Phone | + +------+ + PCP | Unavailable | + +------+ + Encounter Details +--------+ + + + + | Date | Type | Department | Care Team | Description | +--------+ + + + + | 11/09/ | Abstract | [facility] | Clinic, | | | 2018 | | Center at [facility] [address] | Gastroenterology | | | | | [facility] | | | | | | for Health and | | | | | | Healing, [address] | | | | | | [place], [place] | | | | | | [address] | | | | | | [phone] | | | +--------+ + + + [...] as of this encounter Plan of Treatment Not on filedocumented as of this encounter Visit Diagnoses Not on filedocumented in this encounter"
--- OUTSIDE RECORDS SUMMARY | ~2020-06-03 | XMS | Encounter Summary ---
Demographics + + + | Address | [address] | | | [place] [address] | + + + | Home Phone | | + + + | Preferred Language | Unknown | + + + | Marital Status | Single | + + + | Hinduism Affiliation | 1013 | + + + [...] | [place] | | | | | [address] | | + + + + + Care Team Providers + +------+ + | Care Offline Cutter Name | Role | Phone | + [...] Description | +--------+--------+ + + + | 01/09/ | Refill | [facility] | Osito Bowen | Medication Refill | | 2019 | | GASTROENTEROLOGY | MD Jonathan [address] | | | | | [address] | [place] [address] | | | | | [place], [place] | [phone] | | | | | [address] | | | | | | [phone] | | | +--------+--------+ + + + [...] this encounter Miscellaneous Notes Telephone Encounter - Osito Bowen MD - 01/10/2020 11:04 AM Tristen refill prescrip tion but she needs to have a clinic visit soon. She hasn't been seen in a year. Electronic ally signed by Osito Bowen MD at 01/10/2020 11:05 AM PDTdocumented in this encounter Plan of [...] | | | | | | [place] [address] | | | | | | [phone] | | | | | | | | +--------+ + + + + | 07/09/ | Virtual | Gastroenterology | Osito Bowen | | 2019 | Office | | MD Jonathan [address] | | | | Visit | | [place] [address] | | | | | | [phone] | | | | | | | | +--------+ + + + + documented as of this encounter Visit Diagnoses Not on filedocumented in this encounter"
--- OUTSIDE RECORDS SUMMARY | ~2020-06-03 | XMS | Encounter Summary ---
Demographics + + + | Address | [address] | | | [place] [address] | + + + | Home Phone | | + + + | Preferred Language | Unknown | + + + | Marital Status | Single | + + + | Confucianist Affiliation | 1013 | + + + | Race | White | + + + | Ethnic Group | Not or | + + + Author + + + | Author | [facility] | | | and [place] | + + + | Organization | [facility] | | | and [place] | + + + | Address | Unknown | + + + | Phone | Unavailable | + + + Support + + + + + | Name | Relationship | Address | Phone | + + + + + | Marilyn Diallo | ECON | [place] | | | | | [address] | | + + + + + Care Team Providers + +------+ + | Care Utility Locate Technician Name | Role | Phone | [...] | | | / | colitis, | ENGINEERING TECHNICAL WRITER [address] | SENIOR BOILER OPERATOR [address] | | | | Gastroenterol | unspecified | [facility] | [address] | | | | ogy | follow up | QUAN [place]HALIL, | [address] | | | | | ulcerative | [address] | [place], | | | | | colits-per | [place], | [place] [address] | | | | | lexus/pcp | [place] [address] | Phone: | | | | | arjun/mod | Phone: | [phone] | | | | | a | [phone] | Fax: | | | | | Procedures | Fax: | [phone] | | | | | OFFICE VISIT | [phone] | | | | | | REGULAR | | | +--------+--------+ + + + + Encounter Details +--------+---------+ + + + | Date | Type | Department | Care Team | Description | +--------+---------+ + + + | 07/09/ | Office | [facility] | [place], | Ulcerative colitis, | | 2013 | Visit | GASTROENTEROLOGY | KYRA Singer [address] | other complication | | | | [address] | [address] | ([facility]) (Primary Dx); | | | | [address] [place], [place] | [place], [place] | Anemia | | | | [address] | [address] | | | | | [phone] | | | +--------+---------+ + + + [...] + + + | Blood Pressure | 112/70 | 07/09/2014 10:02 AM | | | | | PDT | | + + + + + | Pulse | 76 | 07/09/2014 10:02 AM | | | | | PDT | | + + + + + | Temperature | 36.3 C (97.4 F) | 07/09/2014 10:02 AM | | | | | PDT | | + + + + + | Respiratory Rate | 16 | 07/09/2014 10:02 AM | | | | | PDT | | + + + + + | Oxygen Saturation | - | - | | + + + + + | Inhaled Oxygen | - | - | | | Concentration | | | | + + + + + | Weight | 85.3 kg (188 lb) | 07/09/2014 10:02 AM | | | | | PDT | | + + + + + | Height | 160 cm (5' 3") | 07/09/2014 10:02 AM | | | | | PDT | | + + + + + | Body Mass Index | 33.3 | 07/09/2014 10:02 AM | | | | | PDT | | + + + + + documented in this encounter Patient Instructions Patient Instructions Lucrecia Blank ARNP - 07/09/2014 10:27 AM PDT Patient Education Azathioprine Oral tablet Azathioprine Sodium Solution for injection Azathioprine Oral tablet What is this medicine? AZATHIOPRINE (ay za THYE oh preen) suppresses the immune system. It is used to prevent orga n rejection after a transplant. It is also used to treat rheumatoid arthritis. This medicine may be used for other purposes; ask your health care provider or pharmacist i f you have questions. What should I tell my health care provider before I take this medicine? They need to know if you have any of these conditions: infection kidney disease liver disease an unusual or allergic reaction to azathioprine, other medicines, lactose, foods, dyes, or preservatives or trying to get breast feeding How should I use this medicine? Take this medicine by mouth with a full glass of water. Follow the directions on the prescr iption label. Take your medicine at regular intervals. Do not take your medicine more often than directed. Continue to take your medicine even if you feel better. Do not stop taking ex cept on your doctor's advice. Talk to your veterinary hospital shift lead regarding the use of this medicine in children. Special care may be needed. Overdosage: If you think you have taken too much of this medicine contact a poison control center or emergency room at once. NOTE: This medicine is only for you. Do not share this medicine with others. What if I miss a dose? If you miss a dose, take it as soon as you can. If it is almost time for your next dose, ta ke only that dose. Do not take double or extra doses. What may interact with this medicine? Do not take this medicine with any of the following medications: mercaptopurine This medicine may also interact with the following medications: allopurinol aminosalicylates like sulfasalazine, mesalamine, balsalazide, and olsalazine leflunomide medicines called HERI inhibitors like benazepril, captopril, enalapril, fosinopril, quina pril, lisinopril, ramipril, and trandolapril mycophenolate sulfamethoxazole; trimethoprim vaccines warfarin This list may not describe all possible interactions. Give your health care provider a list of all the medicines, herbs, non-prescription drugs, or dietary supplements you use. Also t ell them if you smoke, drink alcohol, or use illegal drugs. Some items may interact with you r medicine. What should I watch for while using this medicine? Visit your doctor or health spiritual care coordinator for regular checks on your progress. You will need frequent blood checks during the first few months you are receiving the medicine. If you get a cold or other infection while receiving this medicine, call your doctor or [facility] spiritual care coordinator. Do not treat yourself. The medicine may increase your risk of getting an infection. Women should inform their doctor if they wish to become or think they might be pre gnant. There is a potential for serious side effects to an unborn child. Talk to your health spiritual care coordinator or pharmacist for more information. Men may have a reduced sperm count while they are taking this medicine. Talk to your health spiritual care coordinator for more information. This medicine may increase your risk of getting certain kinds of cancer. Talk to your docto r about healthy lifestyle choices, important screenings, and your risk. What side effects may I notice from receiving this medicine? Side effects that you should report to your doctor or health spiritual care coordinator as soon as p ossible: allergic reactions like skin rash, itching or hives, swelling of the face, lips, or tong ue fever, chills, or any other sign of infection severe stomach pain unusual bleeding, bruising unusually weak or tired vomiting yellowing of the eyes or skin Side effects that usually do not require medical attention (report to your doctor or health spiritual care coordinator if they continue or are bothersome): hair loss nausea This list may not describe all possible side effects. Call your doctor for medical advice a bout side effects. You may report side effects to FDA at 1-344-ANG-0379. Where should I keep my medicine? Keep out of the reach of children. Store at room temperature between 15 and 25 degrees C (59 and 77 degrees F). Protect from l ight. Throw away any unused medicine after the expiration date. NOTE:This sheet is a summary. It may not cover all possible information. If you have questi ons about this medicine, talk to your doctor, pharmacist, or health care provider. Copyright 2014 Gold Standard Low-Residue Diet Your doctor has prescribed a low-residue diet. Residue is the word for parts of food (such as fiber) that pass undigested through the bowel. This is what forms stool. Low-residu e foods are easily digested and absorbed. They leave the least residue, which results in les s stool. This lets the intestine rest. You will likely be on this diet for a short time amber use low-residue foods usually don't give you all the nutrients you need to keep healthy. You r doctor will tell you how long you need to be on this diet and you may be told to take cert ain vitamins to ensure you get enough nutrients. Reasons to Eat a Low-Residue Diet The goal of a low-residue diet is to limit the size and number of stools. It may be prescri bed if you: Are having chemotherapy or radiation treatments Have had intestinal surgery Have a condition that affects the intestine, such as Crohn s disease, ulcerative colit is, or diverticulitis General Guidelines for a Low-Residue Diet Your doctor may give you a list of things you can and can t eat or drink. Read food label s and choose foods and drinks that have as close to zero grams as possible of fiber. Here ar e general guidelines: Breads, pasta, cereal, rice, and other starches (6 to 11 servings daily) What to choose: white bread, biscuits, muffins, and rolls; plain crackers; white pasta; white rice; cream of wheat; grits; white pancakes; cornflakes; cooked potatoes without skin. Fiber content of these foods should be less than 0.5 (half) gram per serving. What to avoid: Whole-wheat or whole-grain breads, crackers, and pasta; breads with seeds or nuts; cornbread; wild or brown rice; whole-grain cereals, bran cereals, granola cereals, cereals with seeds, nuts, coconut, or dried fruit; potatoes with skin Milk and dairy (2 servings daily) What to choose: milk, smooth yogurt, ice cream, custard, cheese and cottage cheese What to avoid: ice cream and yogurt with seeds or nuts, or with chunks of fruit Fruit (2 to 4 servings daily) What to choose: ripe banana; ripe nectarine, peach, apricot, papaya, plum; soft honeydew melon and cantaloupe; cooked or canned fruit without skin or seeds; applesauce; strained fr uit juice (without pulp) What to avoid: raw or dried fruit; all berries; raisins; canned and raw pineapple; prune s and prune juice Vegetables (3 to 5 servings daily) What to choose: well-cooked or canned vegetables without seeds, such as spinach, eggplan t, green and wax beans, carrots, yellow squash, pumpkin, beets; raw lettuce; raw onions; raw zucchini What to avoid: vegetables with seeds, such as unstrained tomato sauce; green peas; valdovinos beans; broccoli; corn; parsnips Meats and protein (4 to 6 oz daily) What to choose: tender, well-cooked meat, including ground meat, poultry, and fish; eggs ; tofu; creamy peanut butter What to avoid: tough, chewy meat with gristle; peas, including split, yellow, black-eyed ; beans, including navy, valdovinos, black, garbanzo, soy, ariza, lentil; peanuts and crunchy pean ut butter Fats, oils, sauces, condiments What to choose: butter, magarine, oils, whipped cream, sour cream, mayonnaise, smooth dr essings and sauces; plain gravy; smooth condiments What to avoid: dressing with seeds or fruit chunks; pickles and relishes Other foods and drinks What to choose: plain gelatin; plain puddings; pretzels; plain cookies and cakes; honey, syrup, caffeinated drinks, including tea and coffee (ask your doctor first); soda What to avoid: popcorn; spicy foods; foods made with cocoa powder; alcohol (ask your doc tor); marmalade, jam, preserves; desserts that have seeds, nuts, coconut, dried fruit, whole grains or bran; candy that has seeds or nuts [id number] [place] [address]. All rights reserve d. This information is not intended as a substitute for professional medical care. Always fo llow your healthcare professional's instructions. documented in this encounter Progress Notes Lucrecia Blank, KYRA - 07/09/2014 10:16 AM PDTFormatting of this note might be differe nt from the original. Ria Hastings is a 34 y.o. female here for followup Ulcerate Colitis. History of present illness: Patient was placed on Remicade. Has completed her 3rd infusion. Was still on Prednisone at the time she started Remicade. Since she has tapered off Remicade, she has had increased BM. Some are soft and formed and some continue. She thinks 50% are still diarrhea. Denies blood in stool. Denies abdominal pains or blood in stool. Is currently taking Asacol 800 tid, and Remicade every 8 weeks. Last infusion was 1 week ag o. Denies any adverse effects from the Remicade. She is not losing weight. Allergies Allergen Reactions Sulfa Antibiotics Past Medical History Diagnosis Date Colitis Anemia History of blood transfusion Ectopic Inflammatory arthritis (HCC) Past Surgical History Procedure Date Ectopic surgery unk Colonoscopy 12/25/2013 COLONOSCOPY performed by Aris Schmid MD at [facility] Family History Problem [...] mood and affect. Hospital Outpatient Visit on 07/02/2014 Component Date [...] <20 mm/hr Final Assessment 1. Ulcerative colitis, other complication (HCC) Comprehensive Metabolic Panel Amylase Lipase 2. Anemia No significant change since 11/2013. Plan: Patient to start Imuran 50 mg daily. Will check CMP in 7 days. Discussed risk for pancreati tis. Once he received results from laboratory test, will likely increase medication to 100 mg da lucia. And titrated up to a therapeutic dosage. She is to continue with her Remicade as scheduled. She is to continue with her Asacol 3 times a day. She was given information on low residue diet. Will follow up with results. Patient is [...] 2019 | Office | | [address] | | | | Visit | | [place] | | | | | | [place] [address] | | | | | | [phone] | | | | | | | | +--------+ + + + + | 07/09/ | Virtual | Gastroenterology | Osito Bowen | | 2019 | Office | | MD Jonathan [address] | | | | Visit | | [place] [address] | | | | | | [phone] | | | | | | | | +--------+ + + + + documented as of this encounter Visit Diagnoses + + | Diagnosis | + + | Ulcerative colitis, other complication - Primary | + + | Anemia Anemia, unspecified | + + documented in this encounter
--- OUTSIDE RECORDS SUMMARY | ~2020-06-03 | XMS | Encounter Summary ---
Demographics + + + | Address | [address] | | | [place] [address] | + + + | Home Phone [...] + + + | Author | [facility] | | | and [place] | + + + | Organization | [facility] | | | and [place] | + + + | Address | Unknown | + + + | Phone | Unavailable | + + + Support + + + + + | Name | Relationship | Address | Phone | + + + + + | Marilyn Diallo | ECON | [place] | | | | | [address] | | + + + + + Care Team Providers + +------+ + | Care Unit Clerk Name | Role | Phone | + +------+ + | aCrlos Díaz NP | PCP | | + [...] | | | remicade-wee | | [address] | | | | | [address] | | [place], | | | | | | | [place] [address] | | | | | | | Phone: | | | | | | | [phone] | | | | | | | Fax: | | | | | | | [phone] | +--------+--------+ + + + + Encounter Details +--------+ + + + + | Date | Type | Department | Care Team | Description | +--------+ + + + + | 07/02/ | Hospital | [facility] | [facility], | Ulcerative colitis, | | 2013 | Encounter | MED CTR OP INFUSION | KYRA [address] | unspecified (Primary | | | | [address] | [address] | Dx); Ulcerative | | | | [place], [place] | [place], [place] | colitis, with rectal | | | | [address] | [address] | bleeding (HCC) | | | | [phone] | | | +--------+ + + + [...] | | | | | | [place] [address] | | | | | | [phone] | | | | | | | | +--------+ + + + + | 07/09/ | Virtual | Gastroenterology | [address]ito Bowen | | | 2019 | Office | | MD Jonathan [address] | | | | Visit | | [place] [address] | | | | | | [phone] | | | | | | | [...] + | [facility] | [address] | [place] | [phone] | | [facility] | | [address] | | | - LABORATORY | | | | + + + + + | [facility] | [address] | [place] | | | [facility] | | [address], [place] | | | - LABORATORY | [...] + | [facility] [facility] | [address] | [place] | [phone] | | [facility] | | [address] | | | - LABORATORY | | | | + + + + + | [facility] [facility] | [address] | [place], [place] | | | [facility] | | [address], [facility] | | | - LABORATORY | | [...] | Eosinophils | | K/uL | [facility] | | | | | | MEDICAL [...] + | [facility] | [address] | [place], [place] | [phone] | | [facility] | | [address] | | | - LABORATORY | | | | + + + + + | [facility] | [address] | [place], [place] | | | [facility] | | [address] [place] [address] | | | - LABORATORY | | [...]
--- OUTSIDE RECORDS SUMMARY | ~2020-06-03 | XMS | Encounter Summary ---
Demographics + + + | Address | [address] | | | [place] [address] | + + + | Home Phone [...] Author + + + | Author | [facility] | | | and [place] | + + + | Organization | [facility] | | | and [place] | + + + | Address | Unknown | + + + | Phone | Unavailable | + + + Support + + + + + | Name | Relationship | Address | Phone | + + + + + | Marilyn Diallo | ECON | [place] | | | | | [address] | | + + + + + Care Team Providers + +------+ + | Care Funeral Home Manager Name | Role | Phone | + +------+ + | Lilliana Wheeler | PCP | | | BUS INFO CONSULTANT | | | + +------+ + Reason for Visit +--------+--------+ + | Reason | Onset | Comments | | | Date | | +--------+--------+ + | Other | 11/22/ | asacol | | | 2013 | | +--------+--------+ + Encounter Details +--------+ + + + + | Date | Type | Department | Care Team | Description | +--------+ + + + + | 11/22/ | Telephone | [facility] [place] | [facility], | Other (asacol) | | 2013 | | GASTROENTEROLOGY | KYRA [address] | | | | | [address] [place] | [address] | | | | | [address] [place], [place] | [place], [place] | | | | | [address] | [address] | | | | | [phone] | | | +--------+ + + + [...] Telephone Encounter - Graciela Narayanan Master of Vastech - 11/29/2013 3:01 PM PSTThe medic ation was authorized and patient and her Pharmacy were notified. elephone Encounter - Tanya Narayanan Master of Arts - 11/28/2013 2:31 PM PSTLeft message for Ria that I spoke with her i nsurance this morning and her medication authorization is still in review.Electronically sig servando by Master Boykin of Arts at 11/28/2013 2:32 PM PSTTelephone Encounter - Robert freidaValeriy - 11/28/2013 2:22 PM PSTPatient called to check on status of auth for medic ation. Pleases return call to [phone].Electronically signed by Valeriy Potter at 2:22 PM PSTTelephone Encounter - Graciela Narayanan Master of Arts - 11/28/2013 7 :52 AM PSTspoke to Aneesh at [facility] regarding Ria's PA for Asacol, he said that thi s is still in process. He also said [facility] is way behind on getting prior authorizations done. He could not give me any information on when it might be done. elephone Encounter - Liberty Narayanan Master of Arts - 11/22/2013 1:01 PM PSTRia called concerned about getting a prior au thorization for her asacol, after looking through her chart I see where this information has been sent to [facility] a couple of weeks ago. I called [facility] and talked to Kassandra Feliciano, she said that they do have this information and it just went in for review. She said it takes about 5 day s for this. I called and left this message for Ria. Said I would call her back On Wednesday to let her know the out come.Electronically signed by Master Boykin of Arts at 09/2014 1:04 PM PSTdocumented in this encounter Plan of [...] | | | | | | [place] [address] | | | | | | [phone] | | | | | | | | +--------+ + + + + | 07/09/ | Virtual | Gastroenterology | Osito Bowen | | | 2019 | Office | | MD Jonathan [address] | | | | Visit | | [place] [address] | | | | | | [phone] | | | | | | | | +--------+ + + + + documented as of this encounter Visit Diagnoses Not on filedocumented in this encounter"
--- OUTSIDE RECORDS SUMMARY | ~2020-06-03 | XMS | Encounter Summary ---
Demographics + + + | Address | [address] | | | [place] [address] | + + + | Home Phone | | + + + | Preferred Language | Unknown | + + + | Marital Status | Single | + + + | Yarsani Affiliation | 1013 | + + + [...] [place] | | | | | [address] | | + + + + + Care Team Providers + +------+ + | Care Restaurant Hostess Name | Role | Phone | + +------+ + | Lilliana Wheeler | PCP | | | DIRECTOR OF INTELLIGENCE | | | + +------+ + Encounter Details +--------+ + + + + | Date | Type | Department | Care Team | Description | +--------+ + + + + | 12/07/ | Hospital | [facility] | [facility], | Ulcerative colitis | | 2014 | Encounter | MED CTR LABORATORY | KYRA [address] | ([facility] | | | | [address] [place] | [address] | | | | | [place], [place] | [place], [place] | | | | | [address] | [address] | | | | | [phone] | | | +--------+ + + + [...] | | | | | | [place] [address] | | | | | | [phone] | | | | | | | | +--------+ + + + + | 07/09/ | Virtual | Gastroenterology | Osito Bowen | | | 2019 | Office | | MD [address] | | | | Visit | | [place] [address] | | | | | | [phone] | | | | | | | [...] [address] | [place] | [phone] | | [facility] | | [address] | | | - LABORATORY | | | | + + + + + | [facility] | [address] | [place], [place] | | | [facility] | | [address], [facility] | | | - LABORATORY | [...] + | [facility] | [address] | [place] | [phone] | | [facility] | | [address] | | | - LABORATORY | | | | + + + + + | [facility] | [address] | [place], [place] | | | [facility] | | [address], [facility] | | | - LABORATORY | [...] | | | Eosinophils | | | [facility] | | [...] | | Lymphocytes | | | [facility] | | | | | | MEDICAL [...] + | [facility] | [address] | [place], [place] | [phone] | | [facility] | | [address] | | | - LABORATORY | | | | + + + + + | [facility] | [address] | [place], [place] | | | [facility] | | [address] [place] [address] | | | - LABORATORY | | | | + + + + + documented in this encounter Visit Diagnoses + + | Diagnosis | + + | Ulcerative colitis (HCC) Ulcerative colitis, unspecified | + + documented in this encounter"
--- OUTSIDE RECORDS SUMMARY | ~2020-06-03 | XMS | Encounter Summary ---
Demographics + + + | Address | [address] | | | [place] [address] | + + + | Home Phone [...] + + + | Author | [facility] | | | and [place] | + + + | Organization | [facility] | | | and [place] | + + + | Address | Unknown | + + + | Phone | Unavailable | + + + Support + + + + + | Name | Relationship | Address | Phone | + + + + + | Marilyn Diallo | ECON | [place] | | | | | [address] | | + + + + + Care Team Providers + +------+ + | Care Working Second Hand Name | Role | Phone | [...] + + | 03/07/ | Refill | [facility] | Osito Bowen | Medication Refill | | 2019 | | GASTROENTEROLOGY | MD [address] | | | | | [address] | [place] [address] | | | | | [place], [place] | [phone] | | | | | [address] | | | | | | [phone] | | | +--------+--------+ + + + [...] | | | | | | [place] [address] | | | | | | [phone] | | | | | | | | +--------+ + + + + | 07/09/ | Virtual | Gastroenterology | Osito Bowen | | 2019 | Office | | MD Jonathan [address] | | | | Visit | | [place] [address] | | | | | | [phone] | | | | | | | | +--------+ + + + + documented as of this encounter Visit Diagnoses Not on filedocumented in this encounter"
--- OUTSIDE RECORDS SUMMARY | ~2020-06-03 | XMS | Encounter Summary ---
Demographics + + + | Address | [address] | | | [place] [address] | + + + | Home Phone [...] [place] | | | | | [address] | | + + + + + Care Team Providers + +------+ + | Care Equal Opportunity Assistant Name | Role | Phone | + +------+ + | Carlos Díaz NP | PCP | | + +------+ + Reason for Visit + +--------+ + | Reason | Onset | Comments | | | Date | | + +--------+ + | Appointment | 08/09/ | | | | 2014 | | + +--------+ + Encounter Details +--------+ + + + + | Date | Type | Department | Care Team | Description | +--------+ + + + + | 08/09/ | Telephone | [facility] | Aris Schmid MD | Appointment | | 2014 | | GASTROENTEROLOGY | [address] | | | | | [address] [facility] | [place], [place] | | | | | [address] [place], [place] | [address] | | | | | [address] | [phone] | | | | | [phone] | | | +--------+ + + + [...] this encounter Miscellaneous Notes Telephone Encounter - Adirana Wallace Agustin - 08/09/2015 8:25 AM Katy returned Gela's call from a couple weeks back and said she is still having issues and would like to set up an ivelisse ointment with Dr Schmid per Danielle's recommendations (see previous phone note.) Patient has EOC CO so I told her to just get a referral to us from her PCP then we would be able to schedule (probably without being reviewed since she was seen recently.) Keep a look out for the referral. 8: 28 AM PDTdocumented in this encounter Plan of [...] | | | | | | [place] [address] | | | | | | [phone] | | | | | | | | +--------+ + + + + | 07/09/ | Virtual | Gastroenterology | Osito Bowen | | 2019 | Office | | MD Jonathan [address] | | | | Visit | | [place] [address] | | | | | | [phone] | | | | | | | | +--------+ + + + + documented as of this encounter Visit Diagnoses Not on filedocumented in this encounter"
--- OUTSIDE RECORDS SUMMARY | ~2020-06-03 | XMS | Encounter Summary ---
Demographics + + + | Address | [address] | | | [place] [address] | + + + | Home Phone [...] Author + + + | Author | [facility] | | | and [place] | + + + | Organization | [facility] | | | and [place] | + + + | Address | Unknown | + + + | Phone | Unavailable | + + + Support + + + + + | Name | Relationship | Address | Phone | + + + + + | Marilyn Diallo | ECON | [place] | | | | | [address] | | + + + + + Care Team Providers + +------+ + | Care Agricultural Equipment Salesperson Name | Role | Phone | + +------+ + | Carlos Díaz NP | PCP | | + +------+ + Reason for Visit + +--------+ + | Reason | Onset | Comments | | | Date | | + +--------+ + | Ulcerative Colitis | 07/26/ | | | | 2013 | | + +--------+ + Encounter Details +--------+ + + + + | Date | Type | Department | Care Team | Description | +--------+ + + + + | 07/26/ | Telephone | [facility] | [facility], | Ulcerative Colitis | | 2013 | | GASTROENTEROLOGY | KYRA Singer [address] | | | | | [address] | [address] [facility] [address] | | | | | [address] [place], [place] | [place] | | | | | [address] | [address] | | | | | [phone] | | | +--------+ + + + [...] Notes Telephone Encounter - Kasia Rooney - 07/31/2014 4:12 PM PDTPatient called back and kendrick led for 8:15am tomorrow with Dr. Hurst. elephone Encounter - Kasia Rooney - 07/31/2014 2:20 PM PDTLeft voicemail to s ee if patient can come into see Dr. Hurst at 8:15 on 08/01/14. elephone Encounter - Graciela Narayanan Master of Arts - 07/31/2014 10:03 AM PDTSpoke to patient, she would like orders sent to [facility] . eleph one Encounter - Graciela Narayanan Master of Arts - 07/31/2014 9:28 AM PDTLeft message for Ria to return call. Danielle would like her to have stool studies. Need to know where she woul d like orders sent? elephone Encounter - Lucrecia Blank ARNP - 07/31/2014 9:15 AM PDTOrders done. Thank you elephone Randy louiseer - Graciela Narayanan Master of Arts - 07/31/2014 9:02 AM PDTPatient has never had sto ol studies. Would you put in orders? I will call Ria. elephone Encounter - Graciela Narayanan Mas ter of Arts - 07/30/2014 10:59 AM PDTKeri called in and said she is having to get up about e very half hour all night to have bowel movement. Hasn't seen anymore blood. Told her Brie wi ll be here tomorrow. Will call her and let her know what can be done. She says she has predn isone at home enough to get started. Will wait to see what Danielle advises.Electronically shannan d by Master Boykin of Arts at 07/30/2014 11:05 AM PDTTelephone Encounter - Marvel son, Graciela Master of Arts - 07/26/2014 4:26 PM PDTPatient returned call, she has been s eeing blood in her stools for 4-5 days now. Wanted Brrick to know she is having blood drawn to [facility]. Told her Danielle is out until Wednesday, patient said she will keep doing what she is doi ng now and will wait to here from Danielle next week. elephone Encounter - Graciela Narayanan Master o f Arts - 07/26/2014 4:24 PM PDTLeft message for patient to return call.Electronically shannan d by Graciela Narayanan Master of Arts at 07/26/2014 4:25 PM PDTTelephone Encounter - Debbie Pinon - 07/26/2014 4:12 PM PDTPatient called in asking to speak with Gela. She said she is having a flare up of ulcerative colitis and would like to speak with you. Please give he r a call back. documented in this encounter Plan of [...] [place], | | | | | | [place] [address] | | | | | | [phone] | | | | | | | | +--------+ + + + + | 07/09/ | Virtual | Gastroenterology | Osito Bowen | | | 2020 | Office | | MD Jonathan [address] | | | | Visit | | [place] [address] | | | | | | [phone] | | | | | | | | +--------+ + + + + + + +--------+ + + | Name | Type | Priori | Associated Diagnoses | Order Schedule | | | | ty | | | + + +--------+ + + | Culture, Stool | Microbiolog | Routin | Diarrhea | 1 Occurrences | | | y | e | | starting 07/31/2014 | | | | | | until 11/28/2014 | + + +--------+ + + | Clostridium | Microbiolog | Routin | Diarrhea | Expected: | | difficile A and B | y | e | | 07/31/2014, Expires: | | EIA | | | | 11/28/2014 | + + +--------+ + + | Giardia Ag, EIA, | Microbiolog | Routin | Diarrhea | 1 Occurrences | | Stool | y | e | | starting 07/31/2014 | | | | | | until 11/28/2014 | + + +--------+ + + | Ova and Parasite | Microbiolog | Routin | Diarrhea | 1 Occurrences | | Examination | y | e | | starting 07/31/2014 | | | | | | until 11/28/2014 | + + +--------+ + + documented as of this encounter Visit Diagnoses + + | Diagnosis | + + | Diarrhea - Primary | + + documented in this encounter"
--- OUTSIDE RECORDS SUMMARY | ~2020-06-03 | XMS | Encounter Summary ---
Demographics + + + | Address | [address] | | | [place] [address] | + + + | Home Phone [...] [place] | | | | | [address] | | + + + + + Care Team Providers + +------+ + | Care Building Contractor Name | Role | Phone | + [...] + + | 07/26/ | Telephone | [facility] | [facility], | Ulcerative Colitis | | 2013 | | GASTROENTEROLOGY | KYRA Singer [address] | | | | | [address] | [address] [facility] [address] | | | | | [address] [place], [place] | [place], [place] | | | | | [address] | [address] | | | | | [phone] | | | +--------+ + + + [...] patient, she would like orders sent to [facility] . eleph one Encounter - Graciela Narayanan [...] [place], | | | | | | [place] [address] | | | | | | [phone] | | | | | | | | +--------+ + + + + | 07/09/ | Virtual | Gastroenterology | Osito Bowen | | | 2020 | Office | | MD Jonathan [address] | | | | Visit | | [place] [address] | | | | | | [phone] | | | | | | | [...]
--- OUTSIDE RECORDS SUMMARY | ~2020-06-03 | XMS | Encounter Summary ---
Demographics + + + | Address | [address] | | | [place] [address] | + + + | Home Phone [...] + | Author | [facility] | | | and [place] | + + + | Organization | [facility] | | | and [place] | + + + | Address | Unknown | + + + | Phone | Unavailable | + + + Support + + + + + | Name | Relationship | Address | Phone | + + + + + | Marilyn Diallo | ECON | [place] | | | | | [address] | | + + + + + Care Team Providers + +------+ + | Care Staff Climate Scientist Name | Role | Phone | + [...] Description | +--------+--------+ + + + | 12/10/ | Refill | [facility] [place] | Edd Hurst, | Medication Refill | | 2014 | | GASTROENTEROLOGY | MD [address] | | | | | [address] | [address] [place], | | | | | [address] [place], [place] | [place] [address] | | | | | [address] | [phone] | | | | | [phone] | | | +--------+--------+ + + + [...] | | | | | | [place] [address] | | | | | | [phone] | | | | | | | | +--------+ + + + + | 07/09/ | Virtual | Gastroenterology | Osito Bowen | | | 2019 | Office | | MD [address] | | | | Visit | | [place] [address] | | | | | | [phone] | | | | | | | | +--------+ + + + + documented as of this encounter Visit Diagnoses Not on filedocumented in this encounter"
--- OUTSIDE RECORDS SUMMARY | ~2020-06-03 | XMS | Encounter Summary ---
Demographics + + + | Address | [address] | | | [place] [address] | + + + | Home Phone [...] [place] | | | | | [address] | | + + + + + Care Team Providers + +------+ + | Care Movers Name | Role | Phone | + [...] + | 10/22/ | Telephone | [facility] [place] | [place], | Other | | 2014 | | GASTROENTEROLOGY | KYRA Singer [address] | | | | | [address] | [address] | | | | | [address] [place], [place] | [place], [place] | | | | | [address] | [address] | | | | | [phone] | | | +--------+ + + + [...] Telephone Encounter - Graciela Narayanan Master of ubigrate - 10/23/2014 9:45 AM PSTLeft mess age for patient, Danielle does not want to order anything until she sees patient. Asked that kate simms keep apt. Call with any questions. elephone Encounter - Graciela Narayanan Master of ubigrate - 0 10/22/2014 3:08 PM PSTSend these orders to [facility] in [place]. elephone Encounter - Graham Narayanan Master of [...] | | | | | | [place] [address] | | | | | | [phone] | | | | | | | | +--------+ + + + + | 07/09/ | Virtual | Gastroenterology | Osito Bowen | | 2019 | Office | | MD Yenifer Castillo | | | | Visit | | [place] [address] | | | | | | [phone] | | | | | | | | +--------+ + + + + documented as of this encounter Visit Diagnoses Not on filedocumented in this encounter"
--- OUTSIDE RECORDS SUMMARY | ~2020-06-03 | XMS | Encounter Summary ---
Demographics + + + | Address | [address] | | | [place] [address] | + + + | Home Phone [...] Author + + + | Author | [facility] | | | and [place] | + + + | Organization | [facility] | | | and [place] | + + + | Address | Unknown | + + + | Phone | Unavailable | + + + Support + + + + + | Name | Relationship | Address | Phone | + + + + + | Marilyn Diallo | ECON | [place] | | | | | [address] | | + + + + + Care Team Providers + +------+ + | Care Eyelet Operator Name | Role | Phone | + +------+ + | Carlos Díaz NP | PCP | | + +------+ + Encounter Details +--------+ + + + + | Date | Type | Department | Care Team | Description | +--------+ + + + + | 05/07/ | Orders Only | [facility] [place] | [place], | Ulcerative colitis, | | 2013 | | GASTROENTEROLOGY | KYRA Singer [address] | without | | | | [address] | [address] | complications (HCC) | | | | [address] [place], [place] | [place], [place] | (Primary Dx) | | | | [address] | [address] | | | | | [phone] | | | +--------+ + + + [...] | 06/04/ | Virtual | Gastroenterology | [facility], | | | 2019 | Office | | [address] | | | | Visit | | [place], | | | | | | [place] [address] | | | | | | [phone] | | | | | | | | +--------+ + + + + | 07/09/ | Virtual | Gastroenterology | Osito Bowen | | | 2019 | Office | | MD Jonathan [address] | | | | Visit | | [place] [address] | | | | | | [phone] | | | | | | | | +--------+ + + + + documented as of this encounter Visit Diagnoses + + | Diagnosis | + + | Ulcerative colitis, without complications - Primary | + + documented in this encounter"
--- OUTSIDE RECORDS SUMMARY | ~2020-06-03 | XMS | Encounter Summary ---
Demographics + + + | Address | [address] | | | [place] [address] | + + + | Home Phone [...] Author + + + | Author | [facility] | | | and [place] | + + + | Organization | [facility] | | | and [place] | + + + | Address | Unknown | + + + | Phone | Unavailable | + + + Support + + + + + | Name | Relationship | Address | Phone | + + + + + | Marilyn Diallo | ECON | [place] | | | | | [address] | | + + + + + Care Team Providers + +------+ + | Care Mixer Crane Operator Name | Role | Phone | + +------+ + | Carlos Díaz NP | PCP | | + +------+ + Reason for Visit + +--------+ + | Reason | Onset | Comments | | | Date | | + +--------+ + | Appointment | 12/31/ | Follow up per Gela clarke for patient | | | 2015 | | + +--------+ + Encounter Details +--------+ + + + + | Date | Type | Department | Care Team | Description | +--------+ + + + + | 12/31/ | Telephone | [facility] | [facility], | Appointment (Follow | | 2015 | | GASTROENTEROLOGY | KYRA [address] | up per Gela needed | | | | [address] | [address] | for patient) | | | | [address] [place], [place] | [place] | | | | | [address] | [address] | | | | | [phone] | | | +--------+ + + + [...] this encounter Miscellaneous Notes Telephone Encounter - SissyFarahNulu - 01/06/2016 4:18 PM PDTPatient scheduled. Clare jaylene encounter. elep jagruti Encounter - Misty Deleon - 01/03/2016 12:47 PM PDTLeft message asking patient t o call the office back to schedule her follow up. elephone Encounter - TeoLeoMisty Farah - 01/01/2016 11:55 AM PDTPost it note given to schedule patient as a follow up with Lucrecia Blank for DX o f Ulcerative Colitis. Called and left a voicemail to schedule. Electronically signed by Misty Deleon at 11:57 AM PDTdocumented in this encounter Plan of [...] | | | | | | [place] [address] | | | | | | [phone] | | | | | | | | +--------+ + + + + | 07/09/ | Virtual | Gastroenterology | Osiot Bowen | | | 2019 | Office | | MD [address] | | | | Visit | | [place] [address] | | | | | | [phone] | | | | | | | | +--------+ + + + + documented as of this encounter Visit Diagnoses Not on filedocumented in this encounter"
--- OUTSIDE RECORDS SUMMARY | ~2020-06-03 | XMS | Encounter Summary ---
Demographics + + + | Address | [address] | | | [place] [address] | + + + | Home Phone [...] Author + + + | Author | [facility] | | | and [place] | + + + | Organization | [facility] | | | and [place] | + + + | Address | Unknown | + + + | Phone | Unavailable | + + + Support + + + + + | Name | Relationship | Address | Phone | + + + + + | Marilyn Diallo | ECON | [place] | | | | | [address] | | + + + + + Care Team Providers + +------+ + | Care Scheduler Maintenance Name | Role | Phone | + +------+ + PCP | Unavailable | + +------+ + Encounter Details +--------+ + + + + | Date | Type | Department | Care Team | Description | +--------+ + + + + | 05/25/ | Hospital | [facility] | [facility], | | | 2010 | Encounter | [facility] LAB[facility]ORY | KYRA Singer [address] | | | | | [address] [place] | [address] | | | | | [place], [place] | [place], [place] | | | | | [address] | [address] | | | | | [phone] | | | +--------+ + + + [...] | | | | | | [place] [address] | | | | | | [phone] | | | | | | | | +--------+ + + + + | 07/09/ | Virtual | Gastroenterology | Osito Bowen | | 2019 | Office | | MD [address] | | | | Visit | | [place] [address] | | | | | | [phone] | | | | | | | | +--------+ + + + + documented as of this encounter Procedures + +--------+ + + + | Procedure Name | Priori | Date/Time | Associated Diagnosis | Comments | | | ty | | | | + +--------+ + + + | SEDIMENTATION RATE | Routin | 05/25/2011 | | Results for this | | | e | 12:17 PM | | procedure are in the | | | | PDT | | results section. | + +--------+ + + + | CBC WITH | Routin | 05/25/2011 | | Results for this | | DIFFERENTIAL | e | 12:17 PM | | procedure are in the | | | | PDT | | results section. | + +--------+ + + + | C-REACTIVE PROTEIN | Routin | 05/25/2011 | | Results for this | | | e | 12:17 PM | | procedure are in the | | | | PDT | | results section. | + +--------+ + + + documented in this encounter Results C-Reactive Protein (05/25/2011 12:17 PM PDT) + + + + + + | Component | Value | Ref Range | Performed | Pathologist | | | | | At | Signature | + + + + + + | CRP | 0.70Comment: Levels >8.0 | <8.0 mg/L | [facility] | | | | mg/L indicate possible | | [facility] | | | | infection, trauma, | | MEDICAL | | | | cardiac infarct or | | CENTER - | | | | neoplastic | | LABORATORY | | | | proliferation. | | | | + + + + + + + + | Specimen | + + | | + + + + + + + | Performing | Address | City/State/Zipcode | Phone Number | | Organization | | | | + + + + + | [facility] | [address] | [place] | [phone] | | [facility] | | [address] | | | - LABORATORY | | | | + + + + + | [facility] | [address] | [place], [place] | | | [facility] | | [address], [facility] | | | - LABORATORY | | | | + + + + + CBC with Differential (05/25/2011 12:17 PM PDT) + + + + + + | Component | Value | Ref Range | Performed | Pathologist | | | | | At | Signature | + + + + + + | White Blood | 12.2 (H) | 4.0 - 11.0 K/uL | [facility] | | | Cells | | | [facility] | | | | | | MEDICAL | | | | | | CENTER - | | | | | | LABORATORY | | + + + + + + | Red Blood | 4.21 | 3.70 - 5.20 | [facility] | | | Cells | | M/uL | [facility] | | | | | | MEDICAL | | | | | | CENTER - | | | | | | LABORATORY | | + + + + + + | Hemoglobin | 11.0 (L) | 11.5 - 16.0 | [facility] | | | | | gm/dL | [facility] | | | | | | MEDICAL | | | | | | CENTER - | | | | | | LABORATORY | | + + + + + + | Hematocrit | 34.2 | 34.0 - 47.0 % | [facility] | | | | | | [facility] | | | | | | MEDICAL | | | | | | CENTER - | | | | | | LABORATORY | | + + + + + + | MCV | 81.3 (L) | 83.0 - 101.0 fL | [facility] | | | | | | [facility] | | | | | | MEDICAL | | | | | | CENTER - | | | | | | LABORATORY | | + + + + + + | MCH | 26.2 (L) | 28.0 - 35.0 pg | [facility] | | | | | | [facility] | | | | | | MEDICAL | | | | | | CENTER - | | | | | | LABORATORY | | + + + + + + | MCHC | 32.2 | 32.0 - 36.0 | [facility] | | | | | g/dL | [facility] | | | | | | MEDICAL | | | | | | CENTER - | | | | | | LABORATORY | | + + + + + + | RDW-CV | 17.8 (H) | <15.0 % | [facility] | | | | | | [facility] | | | | | | MEDICAL | | | | | | CENTER - | | | | | | LABORATORY | | + + + + + + | Platelet | 259 | 140 - 440 K/uL | [facility] | | | Count | | | [facility] | | | | | | MEDICAL | | | | | | CENTER - | | | | | | LABORATORY | | + + + + + + | % | 90.9 (H) | 45 - 75 % | [facility] | | | Neutrophils | | | [facility] | | | | | | MEDICAL | | | | | | CENTER - | | | | | | LABORATORY | | + + + + + + | % | 5.5 (L) | 20 - 45 % | [facility] | | | Lymphocytes | | | [facility] | | | | | | MEDICAL | | | | | | CENTER - | | | | | | LABORATORY | | + + + + + + | % Monocytes | 2.6 (L) | 4 - 12 % | [facility] | | | | | | [facility] | | | | | | MEDICAL | | | | | | CENTER - | | | | | | LABORATORY | | + + + + + + | % | 0.8 | 0 - 5 % | [facility] | | | Eosinophils | | | [facility] | | | | | | MEDICAL | | | | | | CENTER - | | | | | | LABORATORY | | + + + + + + | % Basophils | 0.2 | 0 - 1 % | [facility] | | | | | | [facility] | | | | | | MEDICAL | | | | | | CENTER - | | | | | | LABORATORY | | + + + + + + | Absolute | 11.1 (H) | 1.5 - 6.6 K/uL | [facility] | | | Neutrophils | | | [facility] | | | | | | MEDICAL | | | | | | CENTER - | | | | | | LABORATORY | | + + + + + + | Absolute | 0.7 | 0.6 - 3.2 K/uL | [facility] | | | Lymphocytes | | | [facility] | | | | | | MEDICAL | | | | | | CENTER - | | | | | | LABORATORY | | + + + + + + | Absolute | 0.3 | 0.0 - 1.0 K/uL | [facility] | | | Monocytes | | | [facility] | | | | | | MEDICAL | | | | | | CENTER - | | | | | | LABORATORY | | + + + + + + | Absolute | 0.1 | 0.0 - 0.4 K/uL | [facility] | | | Eosinophils | | | [facility] | | | | | | MEDICAL | | | | | | CENTER - | | | | | | LABORATORY | | + + + + + + | Absolute | 0.0 | 0.0 - 0.1 K/uL | [facility] | | | Basophils | | | [facility] | | | | | | MEDICAL | | | | | | CENTER - | | | | | | LABORATORY | | + + + + + + + + | Specimen | + + | | + + + + + + + | Performing | Address | City/State/Zipcode | Phone Number | | Organization | | | | + + + + + | [facility] | [address] | [place] | [phone] | | [facility] | | [address] | | | - LABORATORY | | | | + + + + + | [facility] | [address] | [place] | | | [facility] | | [address] [place] [address] | | | - LABORATORY | | | | + + + + + Sedimentation Rate (05/25/2011 12:17 PM PDT) + +--------+ + + + | Component | Value | Ref Range | Performed | Pathologist | | | | | At | Signature | + +--------+ + + + | Erythrocyte | 29 (H) | 0 - 20 mm/hr | [facility] | | | | | | [facility] | | | Sediment[facility] | | | MEDICAL | | | on Rate | | | CENTER - | | | | | | LABORATORY | | + +--------+ + + + + + | Specimen | + + | | + + + + + + + | Performing | Address | City/State/Zipcode | Phone Number | | Organization | | | | + + + + + | [facility] | [address] | [place] | [phone] | | [facility] | | [address] | | | - LABORATORY | | | | + + + + + | [facility] | [address] | [place] | | | [facility] | | [id number] [place] [address] | | | - LABORATORY | | | | + + + + + documented in this encounter Visit Diagnoses Not on filedocumented in this encounter"
--- OUTSIDE RECORDS SUMMARY | ~2020-06-03 | XMS | Encounter Summary ---
Demographics + + + | Address | [address] | | | [place] [address] | + + + | Home Phone | | + + + | Preferred Language | Unknown | + + + | Marital Status | Single | + + + | Rastafarian Affiliation | 1013 | + + + | Race | White | + + + | Ethnic Group | Not or | + + + Author + + + | Author | [facility] | | | and [place] | + + + | Organization | [facility] | | | and [place] | + + + | Address | Unknown | + + + | Phone | Unavailable | + + + Support + + + + + | Name | Relationship | Address | Phone | + + + + + | Marilyn Diallo | ECON | [place] | | | | | [address] | | + + + + + Care Team Providers + +------+ + | Care Sales Operations Director Name | Role | Phone | + +------+ + | Carlos Díaz NP | PCP | | + +------+ + Encounter Details +--------+ + + + + | Date | Type | Department | Care Team | Description | +--------+ + + + + | 08/05/ | Documentati | [facility] [place] | [facility], | | | 2014 | on | GASTROENTEROLOGY | KYRA Singer [address] | | | | | [address] [place] | [address] | | | | | [address] [place], [place] | [place], [place] | | | | | [address] | [address] | | | | | [phone] | | | +--------+ + + + [...] documented as of this encounter Progress Notes Graciela Narayanan, Veterinary X Ray Operator - 08/05/2015 1:47 PM PDTReceived Prior Authorization Approval for patient to get her Humira 40 mg/0.8ML syringes per 28 day supply. The prior au thorization approval is effective from May 24, 2015 through May 24, 2016. Reference rob gomezer [id number]. From [facility] ([facility] documented in this encoun ter Plan of [...] | | | | | | [place] [address] | | | | | | [phone] | | | | | | | | +--------+ + + + + | 07/09/ | Virtual | Gastroenterology | Osito Bowen | | | 2019 | Office | | MD [address] | | | | Visit | | [place] [address] | | | | | | [phone] | | | | | | | | +--------+ + + + + documented as of this encounter Visit Diagnoses Not on filedocumented in this encounter"
--- OUTSIDE RECORDS SUMMARY | ~2020-06-03 | XMS | Encounter Summary ---
Demographics + + + | Address | [address] | | | [place] [address] | + + + | Home Phone [...] + | Marilyn Diallo | ECON | [place] | | | | | [address] | | + + + + + Care Team Providers + +------+ + | Care Stem Roller Name | Role | Phone | + [...] | | | | | | | ([facility]) | | | | | | | Procedures | | | | | | | COLONOSCOPY | | | | | | | COLONOSCOPY | | | +--------+--------+ + + + + Encounter Details +--------+---------+ + + + | Date | Type | Department | Care Team | Description | +--------+---------+ + + + | 12/25/ | Surgery | [facility] | Aris Schmid MD | COLONOSCOPY | | 2013 | | [facility] | [address] | | | | | [address] | [place] | | | | | [place] | [address] | | | | | [address] | [phone] | | | | | [phone] | | | +--------+---------+ + + + [...] + + + | Blood Pressure | 104/67 | 12/25/2013 12:00 PM | | | | | PDT | | + + + + + | Pulse | 66 | 12/25/2013 12:00 PM | | | | | PDT | | + + + + + | Temperature | 37 C (98.6 F) | 12/25/2013 9:59 AM | | | | | PDT | | + + + + + | Respiratory Rate | 18 | 12/25/2013 12:00 PM | | | | | PDT | | + + + + + | Oxygen Saturation | 99% | 12/25/2013 12:00 PM | | | | | PDT | | + + + + + | Inhaled Oxygen | - | - | | | Concentration | | | | + + + + + | Weight | 81.7 kg (180 lb 3.2 | 12/25/2013 9:59 AM | | | | oz) | PDT | | + + + + + | Height | 162.6 cm (5' 4") | 12/25/2013 9:59 AM | | | | | PDT | | + + + + + | Body Mass Index | 30.93 | 12/25/2013 9:59 AM | | | [...] | Place 1 suppository | 30 | 3 | 12/26/19 | | | (CANASA) 1,000 mg | rectally every | supposito | | 14 | 4 | | suppository | morning for 30 days. | ry | | | | + + + +---------+ + + | mesalamine | Place 60 mLs | 4000 mL | 3 | 12/26/19 | | | (ROWASA) 4 g/60 mL | rectally nightly for | | | 14 | 4 | | enema | 30 days. | | | | | + [...] + + documented as of this encounter H&P Notes Aris Schmid MD - 12/25/2013 7:57 AM PDTPatient interviewed, history and physical, symp toms reviewed VS signs noted, no change from previous H&P or assessment and plan. Geovany tubbs signed by Aris Schmid MD at 12/25/2013 7:58 AM PDTBayridge HospitalLucrecia, CODING QUALITY COORDINATOR - 11/12 11:20 AM PST Ria Hastings is a 33 y.o. female here for followup ulcerative colitis. History of present illness: Patient states she is feeling fairly well. She stopped her Asacol for about 1 month. She velasquez s restarted about 2 weeks ago. Her bowel movements were looser while off medication. Stools are now harder. Occasional abd ominal pains. Patient notes that she does have a few mouth sores. These have been coming intermittently. Complains of worsening joint pain especially in her knees. Admits to taking naproxen. She states that she has been diagnosed with arthritis. She is unsure if related osteoarthritis or rheumatoid arthritis. Allergies Allergen Reactions Sulfa Antibiotics Past Medical History Diagnosis Date Colitis Anemia History of blood transfusion Ectopic Inflammatory arthritis (HCC) Past Surgical History Procedure Date Ectopic surgery unk Family History Problem Relation Age of Onset [...] NAD Eyes: Sclera clear, MMM Abdomen: Soft, tender to palpation over bilateral lower quadrants, non-distended, bowel ton es positive x 4 quadrants, negative Colunga's sign, negative rebound tenderness, no hepatospl enomegaly. Extremities: No clubbing or edema Skin: Warm, dry, intact. No rashes noted Neuro: Cranial nerves 2-12 grossly intact. Psych: Appropriate mood and affect. Assessment 1. Ulcerative colitis (HCC) CBC with Differential, Sedimentation Rate, C-Reactive Protein, High Sensitivity, Ambulatory referral to Gastroenterology ([facility]) Plan: Will order inflammatory markers. Requesting recent CBC, TSH, vitamin B12 and folate levels from [facility]. Suspect active inflammation due to patient's reported joint pains and mouth sores. Discuss ed that she is due for restaging of her ulcerative colitis especially, if inflammatory marke rs are elevated. Patient agrees. Patient to have colonoscopy for further evaluation and restaging of ulcerative colitis. The procedural techniques, risks, indications, and alternatives were discussed. Among the risk s, are perforation, bleeding, infection, allergic/adverse reactions to medications, and card iovascular complications. Each of these could result in hospitalization, additional procedu res (including surgery), or other life threatening complications. Patient verbalized unders tanding. Risk factors to colo-rectal cancer discussed with patient including smoking, obesit y, excessive red meat ingestion, advancing age and first degree family relative with history of colo-rectal cancer discussed with patient. Patient to call with any questions or concern s prior to procedure. Again discussed the importance of control. Recommended discussion with PCP or SECURITY OPERATIONS CENTER OPERATOR. Will follow up with results. Patient is to call with any question or concerns. Any fevers, chills, chest pain, SOB or other serious symptoms patient is to call the office or go to ER . Cc: Lilliana Wheeler Reviewed most recent labs, imaging, and procedures. This note was dictated using voice recognition software. Please contact me if there are an y questions regarding its content. documented in t his encounter Procedure Notes Adriana Love RN - 12/25/2013 11:08 AM PDTUlcerative colitis, inflammationElectro nically signed by Adriana Love, RN at 12/25/2013 11:08 AM Adriana Ladd RN - 12/25/2013 10:31 AM PDTHistory of [place]., Diarrhea NBASE SCAN [facility] - 12/25/2013 12:00 AM PDTAssociated Order(s): PATHOLOGY - EXTERNAL SCAN 9:5 5 [facility] - 12/25/2013 12:00 AM PDTAssociated Order(s): PATHOLOGY - EXTERNAL SCAN NZABRINA SCAN [facility] - 12/25 12:00 AM PDTAssociated Order(s): COLONOSCOPYElectronically signed by Jassi Saldaña at 0 12/25/2013 11:18 AM PDTdocumented in this encounter Miscellaneous Notes Plan of Care - ONBASE SCAN [facility] - 01/03/2014 12:00 AM PDT iscellaneous - ONBASE SCAN [facility] - 01/01/2014 12:00 AM PDTElec tronically signed by Jassi Saldaña at 01/01/2014 7:46 AM PDTMiscellaneous - ONBASE SCAN [facility] - 12/29/2013 12:00 AM PDT l an of Care - ONBASE SCAN [facility] - 12/26/2013 12:00 AM PDT lan of Care - ONBASE SCAN [facility] - 12/26/2013 12:00 AM PDTElectron ically signed by Jassi Saldaña at 01/01/2014 9:50 AM PDTMiscellaneous - ONBASE SCAN [facility] - 0 12/26/2013 12:00 AM PDT docume edilberto in this encounter Plan of Treatment +--------+ + + + + | Date | Type | Specialty | Care Team | Description | +--------+ + + + + | 06/04/ | Virtual | Gastroenterology | Natalie, | | | 2019 | Office | | [address] | | | | Visit | | [place] | | | | | | [place] [address] | | | | | | [phone] | | | | | | | | +--------+ + + + + | 07/09/ | Virtual | Gastroenterology | Osito Bowen | | 2019 | Office | | MD [address] | | | | Visit | | [place] [address] | | | | | | [phone] | | | | | | | | +--------+ + + + + documented as of this encounter Procedures + +--------+ + + + | Procedure Name | Priori | Date/Time | Associated Diagnosis | Comments | | | ty | | | | + +--------+ + + + | COLONOSCOPY | Routin | 12/25/2013 | | Results for this | | | e | 10:28 AM | | procedure are in the | | | | PDT | | results section. | + +--------+ + + + | COLONOSCOPY | | 12/25/2013 | Ulcerative | | | | | 10:28 AM | colitis, unspecified | | | | | PDT | | | + +--------+ + + + | PATHOLOGY - EXTERNAL | | 12/25/2013 | | | | SCAN | | 12:00 AM | | | | | | PDT | | | + +--------+ + + + | PATHOLOGY - EXTERNAL | | 12/25/2013 | | | | SCAN | | 12:00 AM | | | | | | PDT | | | + +--------+ + + + documented in this encounter Results COLONOSCOPY (12/25/2013 10:28 AM PDT) + + | Specimen | + + | | + + + + -+ | Narrative | Performed At | + + -+ | | [facility] | | GastroenterologyPatient Name: Ria Hicks Date: 12/25/2013 | [facility] | | 10:28 AMMRN: [id number] #: [id number] of : | | | 1980Admit Type: AmbulatoryAge: 33Room: [facility] 02Gender: FemaleNote | | | Status: FinalizedAttending MD: Aris Schmid, MDProcedure: | | | ColonoscopyIndications: DiarrheaProviders: | | | Aris Schmid MD, Adriana Love RN, | | | Nathalie Del Real, TechnicianMedicines: | | | Meperidine 100 mg IV, Midazolam 8 mg IVComplications: No | | | immediate complications.Procedure: Pre-Anesthesia Assessment: | | | - Prior to the procedure, a History and Physical was performed, | | | and patient medications and allergies were reviewed. The | | | patient is competent. The risks and benefits of the procedure | | | and the sedation options and risks were discussed with the | | | patient. All questions were answered and informed consent was | | | obtained. Patient identification and proposed procedure were | | | verified by the physician, the nurse and the power generation technician in the | | | pre-procedure area in the procedure room. Mental Status | | | Examination: alert and oriented. Airway Examination: normal | | | oropharyngeal airway and neck mobility. Respiratory Examination: clear | | | to auscultation. CV Examination: normal. Prophylactic | | | Antibiotics: The patient does not require prophylactic | | | antibiotics. Prior Anticoagulants: The patient has taken no | | | previous anticoagulant or antiplatelet agents. ASA Grade | | | Assessment: I - A normal, healthy patient. After reviewing the | | | risks and benefits, the patient was deemed in satisfactory condition | | | to undergo the procedure. The anesthesia plan was to use | | | moderate sedation / analgesia (conscious sedation). Immediately | | | prior to administration of medications, the patient was | | | re-assessed for adequacy to receive sedatives. The heart rate, | | | respiratory rate, oxygen saturations, blood pressure, adequacy | | | of pulmonary ventilation, and response to care were monitored | | | throughout the procedure. The physical status of the patient | | | was re-assessed after the procedure. After I obtained informed | | | consent, the scope was passed under direct vision. Throughout | | | the procedure, the patient's blood pressure, pulse, and oxygen | | | saturations were monitored continuously. The endoscope was | | | introduced through the anus and advanced to 10 cm into the ileum. The | | | colonoscopy was performed without difficulty. The patient | | | tolerated the procedure well. The quality of the bowel | | | preparation was good.Findings: The perianal and digital rectal | | | examinations were normal. Inflammation characterized by | | | congestion (edema), erosions, erythema, friability, granularity | | | and loss of vascularity was found in a continuous and | | | circumferential pattern from the anus to the cecum. No sites | | | were spared. This was moderate in severity. Biopsies were taken | | | with a cold forceps for histology. Verification of patient | | | identification for the specimen was done by the physician and nurse | | | using the patient's name and date. Estimated blood loss | | | was minimal. The distal ileum contained a few two mm | | | ulcers. No bleeding was present. Biopsies were taken with a | | | cold forceps for histology. Verification of patient | | | identification for the specimen was done by the physician and | | | nurse using the patient's name and date. Estimated blood loss | | | was minimal. The remainder of the exam in the terminal | | | ileum was normal.Impression: - Inflammation was found from the | | | anus to the cecum secondary to pancolitis. Biopsied. - A | | | few ulcers in the distal ileum. Biopsied.Recommendation: - | | | Discharge patient to home. - Regular diet. - Continue | | | present medications. - Use Canasa 1000 mg suppository 1 per | | | rectum QHS for 1 month. - Use Rowasa enemas 1 per rectum daily | | | for 1 month. - Await pathology results. - Repeat | | | colonoscopy in 2 years for surveillance based on pathology | | | results. - Return to GI clinic in 4 weeks. - The findings | | | and recommendations were discussed with the patient.Aris Schmid | | | 12/25/2013 11:17 AMNumber of Addenda: 0Note Initiated On: 12/25/2013 | | | 10:28 AM [facility], [address] [place] [address], | | | [place] [address] | | | - Discharge patient to home. | | | - Regular diet. | | | - Continue present medications. | | | - Use Canasa 1000 mg suppository 1 per rectum QHS for 1 month. | | | - Use Rowasa enemas 1 per rectum daily for 1 month. | | | - Await pathology results. | | | - Repeat colonoscopy in 2 years for surveillance based on pathology | | | results. | | | - Return to GI clinic in 4 weeks. | | | - The findings and recommendations were discussed with the patient. | | |Aris Schmid MD | | |12/25/2013 11:17 AM | | |Number of Addenda: 0 | | |Note Initiated On: 12/25/2013 10:28 AM | | | [facility], [address] [place] [address], [place], [place] | | | [address] | | + + -+ + + | Transcriptions | + + | Jassi Saldaña - 12/25/2013 12:00 AM PDT | + + + +---------+ + + | Performing | Address | City/State/Zipcode | Phone Number | | Organization | | | | + +---------+ + + | [facility] [place] | | | | + +---------+ + + documented in this encounter Visit Diagnoses + + | Diagnosis | + + | Ulcerative colitis, unspecified | + + documented in this encounter Administered Medications + +--------+ +--------+------+------+ | Medication Order | MAR | Action | Dose | Rate | Site | | | Action | Date | | | | + +--------+ +--------+------+------+ | meperidine (DEMEROL) 100 mg/mL | Given | 12/26/19 | 100 mg | | | | injection PRN, Pain, Starting | | 14 10:35 | | | | | 12/25/13 at 1035 | | AM PDT | | | | + +--------+ +--------+------+------+ +---+---+ | | | +---+---+ + +-------+ +------+---+---+ | midazolam (VERSED) 5 mg/mL | Given | 12/26/19 | 1 mg | | | | injection PRN, Anxiety, Starting | | 14 11:05 | | | | | 12/25/13 at 1037 | | AM PDT | | | | + +-------+ +------+---+---+ +-------+ +------+---+---+ | Given | 12/26/19 | 2 mg | | | | | 14 10:44 | | | | | | AM PDT | | | | +-------+ +------+---+---+ | Given | 12/26/19 | 2 mg | | | | | 14 10:42 | | | | | | AM PDT | | | | +-------+ +------+---+---+ +---+---+ | | | +---+---+ documented in this encounter
--- OUTSIDE RECORDS SUMMARY | ~2020-06-03 | XMS | Encounter Summary ---
Demographics + + + | Address | [address] | | | [place] [address] | + + + | Home Phone [...] + + + | Author | [facility] | | | and [place] | + + + | Organization | [facility] | | | and [place] | + + + | Address | Unknown | + + + | Phone | Unavailable | + + + Support + + + + + | Name | Relationship | Address | Phone | + + + + + | Marilyn Diallo | ECON | [place] | | | | | [address] | | + + + + + Care Team Providers + +------+ + | Care Marine Chronometer Assembler Name | Role | Phone | + +------+ + | Carlos Díaz NP | PCP | | + +------+ + Reason for Visit +--------+--------+ + | Reason | Onset | Comments | | | Date | | +--------+--------+ + | Other | 10/31/ | | | | 2014 | | +--------+--------+ + Encounter Details +--------+ + + + + | Date | Type | Department | Care Team | Description | +--------+ + + + + | 10/31/ | Telephone | [facility] [place] | [place], | Other | | 2014 | | GASTROENTEROLOGY | [address] | | | | | [address] [place] | [address] | | | | | [address] [place], [place] | [place], [place] | | | | | [address] | [address] | | | | | [phone] | | | +--------+ + + + [...] documented as of this encounter Miscellaneous Notes Addendum Note - Lucrecia Blank ARNP - 11/07/2014 8:45 AM PST Addended by: LUCRECIA BLANK on: 11/07/2014 08:45 Modules accepted: Orders eletrev york - Lucrecia Blank ARNP - 11/07/2014 8:45 AM PSTOrders done elephone Encfiona miles - Graciela Narayanan, Master of Arts - 10/31/2014 1:30 PM PSTSpoke to Ria, she alread y saw her PCP and didn't know what labs Danielle wanted. Told her I would ask Danielle to put in ord ers for her and will send them to [facility] [place]. Patient verbalized understanding. (patient needs cbc,crp,esr) also patient did have chest xray today and results will be sent to Danielle. TTelephone Encounter - Adriana Wallace - 10/31/2014 12:41 PM PSTPatient called saying she w as just in with Danielle yesterday and she told her to have her PCP order lab work but Ria need s to know which type of labs Danielle wants. Please call her back at the home phone.Electronical ly signed by Adriana Wallace at 10/31/2014 12:42 PM PSTdocumented in this encounter Plan of [...] | | | | | | [place] [address] | | | | | | [phone] | | | | | | | | +--------+ + + + + | 07/09/ | Virtual | Gastroenterology | Osito Bowen | | | 2020 | Office | | MD Jonathan [address] | | | | Visit | | [place] [address] | | | | | | [phone] | | | | | | | | +--------+ + + + + + +------+--------+ + + | Name | Type | Priori | Associated Diagnoses | Order Schedule | | | | ty | | | + +------+--------+ + + | CBC with | Lab | Routin | Ulcerative | 1 Occurrences | | Differential | | e | colitis, other | starting 11/07/2014 | | | | | complication (HCC) | until 03/07/2015 | + +------+--------+ + + | Sedimentation Rate | Lab | Routin | Ulcerative | 1 Occurrences | | | | e | colitis, other | starting 11/07/2014 | | | | | complication (HCC) | until 03/07/2015 | + +------+--------+ + + | C-Reactive Protein, | Lab | Routin | Ulcerative | 1 Occurrences | | High Sensitivity | | e | colitis, other | starting 11/07/2014 | | | | | complication (HCC) | until 03/07/2015 | + +------+--------+ + + documented as of this encounter Visit Diagnoses + + | Diagnosis | + + | Ulcerative colitis, other complication - Primary | + + documented in this encounter"
--- OUTSIDE RECORDS SUMMARY | ~2020-06-03 | XMS | Encounter Summary ---
Demographics + + + | Address | [address] | | | [place] [address] | + + + | Home Phone [...] [place] | | | | | [address] | | + + + + + Care Team Providers + +------+ + | Care Seed Packer Name | Role | Phone | [...] + | 12/17/ | Telephone | [facility] [place] | [place], | Other | | 2014 | | GASTROENTEROLOGY | [address] | | | | | [address] [place] | [address] | | | | | [address] [place], [place] | [place], [place] | | | | | [address] | [address] | | | | | [phone] | | | +--------+ + + + [...] - Graciela Narayanan Master of Arts - 12/17/2014 1:31 PM Katy hickey call. Told her Brie wanted to see [...] | | | | | | [place] [address] | | | | | | [phone] | | | | | | | | +--------+ + + + + | 07/09/ | Virtual | Gastroenterology | Osito Bowen | | 2019 | Office | | MD [address] | | | | Visit | | [place] [address] | | | | | | [phone] | | | | | | | | +--------+ + + + + documented as of this encounter Visit Diagnoses Not on filedocumented in this encounter"
--- OUTSIDE RECORDS SUMMARY | ~2020-06-03 | XMS | Encounter Summary ---
Demographics + + + | Address | [address] | | | [place] [address] | + + + | Home Phone [...] [place] | | | | | [address] | | + + + + + Care Team Providers + +------+ + | Care Western Tack Assembly Line Worker Name | Role | Phone | + +------+ + | Carlos Díaz NP | PCP | | + +------+ + Reason for Visit + +--------+ + | Reason | Onset | Comments | | | Date | | + +--------+ + | Appointment | 12/12/ | | | | 2014 | | + +--------+ + Encounter Details +--------+ + + + + | Date | Type | Department | Care Team | Description | +--------+ + + + + | 12/12/ | Telephone | [facility] | [facility], | [facility] | | 2014 | | GASTROENTEROLOGY | [address] | | | | | [address] [place] | [address] | | | | | [address] [place], [place] | [place], [place] | | | | | [address] | [address] | | | | | [phone] | | | +--------+ + + + [...] Telephone Encounter - Graciela Narayanan Master of Qinging Weekly Flower Delivery - 12/17/2014 11:56 AM PDTCalled cayden rendon again, left message for her to call. Sent her a letter per Danielle that she is to contact us. el ephone Encounter - Graciela Narayanan Master of Arts - 12/13/2014 9:31 AM PSTLeft another message for Ria to please call to reschedule apt. Needs seen before infusion!!Electronicall y signed by Graciela Narayanan Master of Arts at 12/13/2014 9:32 AM PSTTelephone Encounter - Graciela Narayanan Master of Arts - 12/12/2014 4:14 PM PSTNoted. elephone Encounter - Howard Costa - 12/12/2014 9:02 AM PSTI called patient to reschedule her 12.24.14 appt. I left a voicemail asking her to call and schedule a day before her Remicade appt on 12.18.14. Double booking for Danielle in the 8 - 9:30 AM slot is ok Per Danielle as long as it is before 12.18.14.Rubi ctronically signed by Litzy Costa at 12/12/2014 9:05 AM PSTdocumented in this encounter Plan of [...] [place], | | | | | | [place] [address] | | | | | | [phone] | | | | | | | | +--------+ + + + + | 07/09/ | Virtual | Gastroenterology | Osito Bowen | | | 2019 | Office | | MD Jonathan [address] | | | | Visit | | [place] [address] | | | | | | [phone] | | | | | | | | +--------+ + + + + documented as of this encounter Visit Diagnoses Not on filedocumented in this encounter"
--- OUTSIDE RECORDS SUMMARY | ~2020-06-03 | XMS | Encounter Summary ---
Demographics + + + | Address | [address] | | | [place] [address] | + + + | Home Phone [...] + + + | Author | [facility] | | | and [place] | + + + | Organization | [facility] | | | and [place] | + + + | Address | Unknown | + + + | Phone | Unavailable | + + + Support + + + + + | Name | Relationship | Address | Phone | + + + + + | Marilyn Diallo | ECON | [place] | | | | | [address] | | + + + + + Care Team Providers + +------+ + | Care Sex Therapist Name | Role | Phone | + [...] | | remicade-wee | Lucrecia, | [address] | | | | | k 0 | SPECIALIST EMPLOYEE LABOR RELATIONS [address] | [place], | | | | | Procedures | [address] | [place] [address] | | | | | [place] | [address] | Phone: | | | | | INFLIXIMAB | [place], | [phone] | | | | | INJECTION, | [place] [address] | Fax: | | | | | [address] | Phone: | [phone] | | | | | INFUSION, | [phone] | | | | | | THERAP/PROPH | Fax: | | | | | | /[place] | [phone] | | | | | | ITIAL,1ST [...] + + | 12/18/ | Hospital | [facility] | [facility], | Other ulcerative | | 2015 | Encounter | MED CTR OP INFUSION | [address] | colitis (HCC) | | | | [address] | [address] | (Primary Dx); | | | | [place], [place] | [place], [place] | Ulcerative colitis, | | | | [address] | [address] | other complication | | | | [phone] | | (HCC) | +--------+ + + [...] 2019 | Office | | [address] | | | | Visit | | [place], | | | | | | [place] [address] | | | | | | [phone] | | | | | | | | +--------+ + + + + | 07/09/ | Virtual | Gastroenterology | Osito Bowen | | | 2019 | Office | | MD Jonathan [address] | | | | Visit | | [place] [address] | | | | | | [phone] | | | | | | | [...]
--- OUTSIDE RECORDS SUMMARY | ~2020-06-03 | XMS | Encounter Summary ---
Demographics + + + | Address | [address] | | | [place] [address] | + + + | Home Phone | | + + + | Preferred Language | Unknown | + + + | Marital Status | Single | + + + | Worship Affiliation | 1013 | + + + | Race | White | + + + | Ethnic Group | Not or | + + + Author + + + | Author | [facility] | | | and [place] | + + + | Organization | [facility] | | | and [place] | + + + | Address | Unknown | + + + | Phone | Unavailable | + + + Support + + + + + | Name | Relationship | Address | Phone | + + + + + | Marilyn Diallo | ECON | [place] | | | | | [address] | | + + + + + Care Team Providers + +------+ + | Care Kiln Drawer Name | Role | Phone | + [...] + + | 05/09/ | Telephone | [facility] | [facility], | [facility] | | 2017 | | GASTROENTEROLOGY | [address]RA [address] | | | | | [address] [place] | [address] | | | | | [address] [place], [place] | [place], [place] | | | | | [address] | [address] | | | | | [phone] | | | +--------+ + + + [...] thinks she should continue her care in [place] due to her non compliance wi th our office. ele phone Encounter - Molly Ardon - 05/09/2018 2:16 PM PDTPatient called back, she was wa nting to know if Danielle would start seeing her again, she has been hospitalized a couple times here recently, and she knows that Danielle knows her body and her treatment history. She said s he was referred to [facility] but feels better about coming here, told her we would have to c onsult with Danielle when she gets back into office, she verbalized understanding. Salty y signed by Molly Ardon at 05/09/2018 2:22 PM PDTdocumented in this [...] | | | | | | [place] [address] | | | | | | [phone] | | | | | | | | +--------+ + + + + | 07/09/ | Virtual | Gastroenterology | Osito Bowen | | 2019 | Office | | MD Yenifer Castillo | | | | Visit | | [place] [address] | | | | | | [phone] | | | | | | | | +--------+ + + + + documented as of this encounter Visit Diagnoses Not on filedocumented in this encounter"
--- OUTSIDE RECORDS SUMMARY | ~2020-06-03 | XMS | Encounter Summary ---
Demographics + + + | Address | [address] | | | [place] [address] | + + + | Home Phone [...] [place] | | | | | [address] | | + + + + + Care Team Providers + +------+ + | Care Floor Clerk Name | Role | Phone | + +------+ + | Carlos Díaz NP | PCP | | + +------+ + Encounter Details +--------+ + + + + | Date | Type | Department | Care Team | Description | +--------+ + + + + | 03/10/ | Orders Only | [facility] [place] | [place], | Ulcerative colitis, | | 2016 | | GASTROENTEROLOGY | KYRA [address] | unspecified with | | | | [address] | [address] | other complication | | | | [address] [place], [place] | [place], [place] | ([facility]) | | | | [address] | [address] | | | | | [phone] | | | +--------+ + + + [...] [place], | | | | | | [place] [address] | | | | | | [phone] | | | | | | | | +--------+ + + + + | 07/09/ | Virtual | Gastroenterology | Osito Bowen | | | 2019 | Office | | MD Jonathan [address] | | | | Visit | | [place] [address] | | | | | | [phone] | | | | | | | | +--------+ + + + + documented as of this encounter Visit Diagnoses + + | Diagnosis | + + | Ulcerative colitis, unspecified with other complication (HCC) | + + documented in this encounter"
--- OUTSIDE RECORDS SUMMARY | ~2020-06-03 | XMS | Encounter Summary ---
Demographics + + + | Address | [address] | | | [place] [address] | + + + | Home Phone [...] + | Author | [facility] | | | and [place] | + + + | Organization | [facility] | | | and [place] | + + + | Address | Unknown | + + + | Phone | Unavailable | + + + Support + + + + + | Name | Relationship | Address | Phone | + + + + + | Marilyn Diallo | ECON | [place] | | | | | [address] | | + + + + + Care Team Providers + +------+ + | Care Aircraft Structural Design Engineer Name | Role | Phone [...] + + | 06/04/ | Refill | [facility] | [facility], | Medication Refill | | 2014 | | GASTROENTEROLOGY | KYRA Singer [address] | | | | | [address] | [address] | | | | | [address] [place], [place] | [place] | | | | | [address] | [address] | | | | | [phone] | | | +--------+--------+ + + + [...] | | | | | | [place] [address] | | | | | | [phone] | | | | | | | | +--------+ + + + + | 07/09/ | Virtual | Gastroenterology | Osito Bowen | | 2019 | Office | | MD Jonathan [address] | | | | Visit | | [place] [address] | | | | | | [phone] | | | | | | | | +--------+ + + + + documented as of this encounter Visit Diagnoses Not on filedocumented in this encounter"
--- OUTSIDE RECORDS SUMMARY | ~2020-06-03 | XMS | Encounter Summary ---
Demographics + + + | Address | [address] | | | [place] [address] | + + + | Home Phone | | + + + | Preferred Language | Unknown | + + + | Marital Status | Single | + + + | Christianity Affiliation | 1013 | + + + | Race | White | + + + | Ethnic Group | Not or | + + + Author + + + | Author | [facility] | | | and [place] | + + + | Organization | [facility] | | | and [place] | + + + | Address | Unknown | + + + | Phone | Unavailable | + + + Support + + + + + | Name | Relationship | Address | Phone | + + + + + | Marilyn Diallo | ECON | [place] | | | | | [address] | | + + + + + Care Team Providers + +------+ + | Care Piece Hand Name | Role | Phone | + +------+ + PCP | Unavailable | + +------+ + Encounter Details +--------+ + + + + | Date | Type | Department | Care Team | Description | +--------+ + + + + | 01/04/ | Hospital | [facility] | Robi Rubin MD | | | 2006 - | Encounter | [facility] | [address] [facility] | | | | | [facility] [address] | [place], [place] | | | 01/06/ | | [place], | [address] | | | 2006 | | [place] [address] | | | | | | [phone] | | | +--------+ + + + [...] | | | | | | [place] [address] | | | | | | [phone] | | | | | | | | +--------+ + + + + | 07/09/ | Virtual | Gastroenterology | Osito Bowen | | 2019 | Office | | MD Jonathan [address] | | | | Visit | | [place] [address] | | | | | | [phone] | | | | | | | | +--------+ + + + + documented as of this encounter Visit Diagnoses Not on filedocumented in this encounter"
--- OUTSIDE RECORDS SUMMARY | ~2020-06-03 | XMS | Encounter Summary ---
Demographics + + + | Address | [address] | | | [place] [address] | + + + | Home Phone [...] + + + | Author | [facility] | | | and [place] | + + + | Organization | [facility] | | | and [place] | + + + | Address | Unknown | + + + | Phone | Unavailable | + + + Support + + + + + | Name | Relationship | Address | Phone | + + + + + | Marilyn Diallo | ECON | [place] | | | | | [address] | | + + + + + Care Team Providers + +------+ + | Care Outside Sales Name | Role | Phone | + +------+ + | Carlos Díaz NP | PCP | | + +------+ + Encounter Details +--------+ + + + + | Date | Type | Department | Care Team | Description | +--------+ + + + + | 06/04/ | Orders Only | [facility] | [place], | Ulcerative colitis | | 2019 | | GASTROENTEROLOGY | [address] | with rectal | | | | [address] | [address] [facility], | bleeding, | | | | [facility], [place] | [place] [address] | unspecified location | | | | [address] | [phone] | (HCC) (Primary Dx) | | | | [phone] | | | +--------+ + + + [...] | | | Visit | | [facility] | | | | | | [place] [address] | | | | | | [phone] | | | | | | | | +--------+ + + + + | 07/09/ | Virtual | Gastroenterology | Osito Bowen | | | 2019 | Office | | MD Jonathan [address] | | | | Visit | | [place] [address] | | | | | | [phone] | | | | | | | | +--------+ + + + + + +------+--------+ + + | Name | Type | Priori | Associated Diagnoses | Order Schedule | | | | ty | | | + +------+--------+ + + | Misc Lab Referral | Lab | Routin | Ulcerative colitis | 1 Occurrences | | | | e | with rectal | starting 06/04/2019 | | | | | bleeding, | until 02/15/2020 | | | | | unspecified location | | | | | | (HCC) | | + +------+--------+ + + documented as of this encounter Visit Diagnoses + + | Diagnosis | + + | Ulcerative colitis with rectal bleeding, unspecified location (HCC) - Primary | + + documented in this encounter"
--- OUTSIDE RECORDS SUMMARY | ~2020-06-03 | XMS | Encounter Summary ---
Demographics + + + | Address | [address] | | | [place] [address] | + + + | Home Phone [...] Author | [facility] | | | and [place] | + [...] | [place] | | | | | [address] | | + + + + + Care Team Providers + +------+ + | Care Coat Fitter Name | Role | Phone | + [...] Description | +--------+--------+ + + + | 09/13/ | Refill | [facility] | Osito Bowen | Medication Refill | | 2018 | | GASTROENTEROLOGY | MD Jonathan [address] | | | | | [address] | [place] [address] | | | | | [place], [place] | [phone] | | | | | [address] | | | | | | [phone] | | | +--------+--------+ + + + [...] | | | | | | [place] [address] | | | | | | [phone] | | | | | | | | +--------+ + + + + | 07/09/ | Virtual | Gastroenterology | Osito Bowen | | 2019 | Office | | MD Jonathan [address] | | | | Visit | | [place] [address] | | | | | | [phone] | | | | | | | | +--------+ + + + + documented as of this encounter Visit Diagnoses Not on filedocumented in this encounter"
--- OUTSIDE RECORDS SUMMARY | ~2020-06-03 | XMS | Encounter Summary ---
Demographics + + + | Address | [address] | | | [place] [address] | + + + | Home Phone [...] [place] | | | | | [address] | | + + + + + Care Team Providers + +------+ + | Care Boat Crew Deck Hand Name | Role | Phone | + +------+ + | Carlos Díaz NP | PCP | | + +------+ + Reason for Visit + +--------+ + | Reason | Onset | Comments | | | Date | | + +--------+ + | Medication Refill | 12/30/ | | | | 2015 | | + +--------+ + Encounter Details +--------+--------+ + + + | Date | Type | Department | Care Team | Description | +--------+--------+ + + + | 12/30/ | Refill | [facility] [place] | [facility], | Medication Refill | | 2015 | | GASTROENTEROLOGY | KYRA [address] | | | | | [address] | [address] | | | | | [address] [place], [place] | [place] | | | | | [address] | [address] | | | | | [phone] | | | +--------+--------+ + + + [...] | | | | | | [place] [address] | | | | | | [phone] | | | | | | | | +--------+ + + + + | 07/09/ | Virtual | Gastroenterology | Osito Bowen | | 2019 | Office | | MD Jonathan [address] | | | | Visit | | [place] [address] | | | | | | [phone] | | | | | | | | +--------+ + + + + documented as of this encounter Visit Diagnoses Not on filedocumented in this encounter"
--- OUTSIDE RECORDS SUMMARY | ~2020-06-03 | XMS | Encounter Summary ---
Demographics + + + | Address | [address] | | | [place] [address] | + + + | Home Phone | | + + + | Preferred Language | Unknown | + + + | Marital Status | Single | + + + | Roman Catholic Affiliation | 1013 | + + [...] [place] | | | | | [address] | | + + + + + Care Team Providers + +------+ + | Care Clinical Programmer Name | Role | Phone | + +------+ + | Carlos Díaz NP | PCP | | + +------+ + Encounter Details +--------+ + + + + | Date | Type | Department | Care Team | Description | +--------+ + + + + | 04/17/ | Documentati | [facility] [place] | [facility], | | | 2016 | on | GASTROENTEROLOGY | KYRA [address] | | | | | [address] | [address] | | | | | [address] [place], [place] | [place], [place] | | | | | [address] | [address] | | | | | [phone] | | | +--------+ + + + [...] + documented as of this encounter Progress Fatuma Ross RN - 04/17/2016 9:08 AM PDTExternal referral records request sent to HIM to fax all records to [facility] for 2nd opinion on UC documented in this encounter Plan of Treatment +--------+ + + + + | Date | Type | Specialty | Care Team | Description | +--------+ + + + + | 06/04/ | Virtual | Gastroenterology | Natalie, | | 2019 | Office | | [address] | | | | Visit | | [place], | | | | | | [place] [address] | | | | | | [phone] | | | | | | | | +--------+ + + + + | 07/09/ | Virtual | Gastroenterology | Osito Bowen | | 2019 | Office | | MD Jonathan [address] | | | | Visit | | [place] [address] | | | | | | [phone] | | | | | | | | +--------+ + + + + documented as of this encounter Visit Diagnoses Not on filedocumented in this encounter"
--- OUTSIDE RECORDS SUMMARY | ~2020-06-03 | XMS | Encounter Summary ---
Demographics + + + | Address | [address] | | | [place] [address] | + + + | Home Phone | | + + + | Preferred Language | Unknown | + + + | Marital Status | Single | + + + | Mosque Affiliation | 1013 | + + + | Race | White | + + + | Ethnic Group | Not or | + + + Author + + + | Author | [facility] | | | and [place] | + + + | Organization | [facility] | | | and [place] | + + + | Address | Unknown | + + + | Phone | Unavailable | + + + Support + + + + + | Name | Relationship | Address | Phone | + + + + + | Marilyn Diallo | ECON | [place] | | | | | [address] | | + + + + + Care Team Providers + +------+ + | Care Hand Cementer Name | Role | Phone | + +------+ + | Carlos Díaz NP | PCP | | + +------+ + Reason for Visit +--------+--------+ + | Reason | Onset | Comments | | | Date | | +--------+--------+ + | Other | 03// | check on patient after procedure and new medications to | | | 2013 | be ordered | +--------+--------+ + Encounter Details +--------+ + + + + | Date | Type | Department | Care Team | Description | +--------+ + + + + | | Telephone | [facility] | [facility], | Other (check on | | 2013 | | GASTROENTEROLOGY | KYRA [address] | patient after | | | | [address] | [address] | procedure and new | | | | [address] [place] | [place] | medications to be | | | | [address] | [address] | ordered) | | | | [phone] | | | +--------+ + + + [...] in rx for the supp [facility] for her. Made her a follow up appt with jennifer on January.7 will call her the barry serrato for [...] | | | | | | [place] [address] | | | | | | [phone] | | | | | | | | +--------+ + + + + | 07/09/ | Virtual | Gastroenterology | Osito Bowen | | | 2019 | Office | | MD Yenifer Castillo | | | | Visit | | [place] [address] | | | | | | [phone] | | | | | | | | +--------+ + + + + documented as of this encounter Visit Diagnoses Not on filedocumented in this encounter"
--- OUTSIDE RECORDS SUMMARY | ~2020-06-03 | XMS | Encounter Summary ---
Demographics + + + | Address | [address] | | | [place] [address] | + + + | Home Phone [...] [place] | | | | | [address] | | + + + + + Care Team Providers + +------+ + | Care Neighborhood Worker Name | Role | Phone | [...] + | 05/07/ | Telephone | [facility] [place] | [place], | Other | | 2014 | | GASTROENTEROLOGY | KYRA [address] | | | | | [address] [place] | [address] | | | | | [address] [place], [place] | [place], [place] | | | | | [address] | [address] | | | | | [phone] | | | +--------+ + + + [...] Telephone Encounter - Graciela Narayanan Master of [place] - 05/09/2015 9:19 AM PDTWill talk to Danielle regarding new authorization to see if patient needs to make an appointment to tim robe treatment. elephone Encounter - Graciela Narayanan Master of [place]av[employer] - 05/09/2015 8:29 AM PDTLef t message [...] 2019 | Office | | [address] | | | | Visit | | [place], | | | | | | [place] [address] | | | | | | [phone] | | | | | | | | +--------+ + + + + | 07/09/ | Virtual | Gastroenterology | Osito Bowen | | 2019 | Office | | MD Jonathan [address] | | | | Visit | | [place] [address] | | | | | | [phone] | | | | | | | | +--------+ + + + + documented as of this encounter Visit Diagnoses Not on filedocumented in this encounter"
--- OUTSIDE RECORDS SUMMARY | ~2020-06-03 | XMS | Encounter Summary ---
Demographics + + + | Address | [address] | | | [place] [address] | + + + | Home Phone [...] Author + + + | Author | [facility] | | | and [place] | + + + | Organization | [facility] | | | and [place] | + + + | Address | Unknown | + + + | Phone | Unavailable | + + + Support + + + + + | Name | Relationship | Address | Phone | + + + + + | Marilyn Diallo | ECON | [place] | | | | | [address] | | + + + + + Care Team Providers + +------+ + | Care Security Installation Sales Technician Name | Role | Phone | [...] | 05/26/ | Refill | [facility] [place] | [facility], | Medication Refill | | 2013 | | GASTROENTEROLOGY | KYRA Singer [address] | | | | | [address] | [address] | | | | | [address] [place], [place] | [place], [place] | | | | | [address] | [address] | | | | | [phone] | | | +--------+--------+ + + + [...] | | | | | | [place] [address] | | | | | | [phone] | | | | | | | | +--------+ + + + + | 07/09/ | Virtual | Gastroenterology | Osito Bowen | | | 2019 | Office | | MD Jonathan [address] | | | | Visit | | [place] [address] | | | | | | [phone] | | | | | | | | +--------+ + + + + documented as of this encounter Visit Diagnoses Not on filedocumented in this encounter"
--- OUTSIDE RECORDS SUMMARY | ~2020-06-03 | XMS | Encounter Summary ---
Demographics + + + | Address | [address] | | | [place] [address] | + + + | Home Phone [...] [place] | | | | | [address] | | + + + + + Care Team Providers + +------+ + | Care Re Etcher Name | Role | Phone | + +------+ + | Carlos Díaz NP | PCP | | + +------+ + Reason for Visit +--------+--------+ + | Reason | Onset | Comments | | | Date | | +--------+--------+ + | Other | 04/02/ | diarrhea | | | 2013 | | +--------+--------+ + Encounter Details +--------+ + + + + | Date | Type | Department | Care Team | Description | +--------+ + + + + | 04/02/ | Telephone | [facility] [place] | [facility], | Other (diarrhea) | | 2013 | | GASTROENTEROLOGY | [address]RA [address] | | | | | [address] [place] | [address] | | | | | [address] [place], [place] | [place], [place] | | | | | [address] | [address] | | | | | [phone] | | | +--------+ + + + [...] Telephone Encounter - Elana Rodriguez RN - 04/04/2014 12:23 PM Kristopher reviewed timmy perkins he recommends for patient to take asacol as prescribed 800mg 4 times daily, patient states she tries to when she remembers advised she will want to make it a priority to take as pres cribed. She states she stopped taking the canasa and the rowasa enemas advised that dr.wood escamilla wants her to start taking prednisone 40mg daily and then follow up with leia rodriguez made fo april.3 at 11:15 a.m., strongly encouraged patient to keep appt to discuss treatment option s with jennifer and to discuss tapering of prednisone she agreed to come to appt. Valeriy put stanislav ent in the schedule. ele phone Encounter - Debbie Pinon - 04/04/2014 9:38 AM PDTPatient called in asking to speak w ith the nurse. She said she is getting very bad canker sores in her mouth and would like to know if this has anything to do with her ulcerative colitis. Please call the patient back.El ectronically signed by Debbie Pinon at 04/04/2014 9:39 AM PDTTelephone Encounter - Tanvi Rooney - 04/03/2014 10:24 AM PDTPatient called to let us know she has had her labs [facility] at [facility] [place] this morning. 10:2 6 AM PDTTelephone Encounter - Elana Rodriguez RN - 04/02/2014 2:[address]w crump, he would like for patient to have bloodwork drawn cbc,cmp,sed rate,crp, she would like orders sent to [facility] in [place], she states will have them drawn first thing in the m orning, she states she is drinking lots of fluids but still feels dehydrated, states approx 5-10 loose stools daily states approx 50 % have blood noted in them, advised once we have th e blood test results then will let her know what recommends she verbalized understa nding. elephone Encounsrinivasan oneil - Graciela Narayanan, Master of Arts - 04/02/2014 11:15 AM PDTPatient called in stating sh rey is having a flare of ulcerative colitis, she is having 5-10 loose stools per day, she feel s that she is dehydrated. She is also very tired. She is taking Asacol 4 times daily. No er. No blood in stool that she can see. Told her Brie is out this week, will talk to Dr Edgardo escamilla and call her later this afternoon. Patient verbalized understanding. documented in this encounter Plan of Treatment +--------+ + + + + | Date | Type | Specialty | Care Team | Description | +--------+ + + + + | 06/04/ | Virtual | Gastroenterology | Natalie, | | | 2019 | Office | | [address] | | | | Visit | | [place] | | | | | | [place] [address] | | | | | | [phone] | | | | | | | | +--------+ + + + + | 07/09/ | Virtual | Gastroenterology | Osito Bowen | | 2019 | Office | | MD Jonathan [address] | | | | Visit | | [place] [address] | | | | | | [phone] | | | | | | | | +--------+ + + + + + +------+--------+ + + | Name | Type | Priori | Associated Diagnoses | Order Schedule | | | | ty | | | + +------+--------+ + + | CBC with | Lab | Routin | Ulcerative | Expected: | | Differential | | e | colitis, unspecified | 04/02/2014, Expires: | | | | | | 04/02/2015 | + +------+--------+ + + | C-Reactive Protein | Lab | Routin | Ulcerative | Expected: | | | | e | colitis, unspecified | 04/02/2014, Expires: | | | | | | 04/02/2015 | + +------+--------+ + + | Sedimentation Rate | Lab | Routin | Ulcerative | Expected: | | | | e | colitis, unspecified | 04/02/2014, Expires: | | | | | | 04/02/2015 | + +------+--------+ + + | Comprehensive | Lab | Routin | Ulcerative | Expected: | | Metabolic Panel | | e | colitis, unspecified | 04/02/2014, Expires: | | | | | | 07/01/2014 | + +------+--------+ + + documented as of this encounter Visit Diagnoses + + | Diagnosis | + + | Ulcerative colitis, unspecified - Primary | + + documented in this encounter"
--- OUTSIDE RECORDS SUMMARY | ~2020-06-03 | XMS | Encounter Summary ---
Demographics + + + | Address | [address] | | | [place] [address] | + + + | Home Phone | | + + + | Preferred Language | Unknown | + + + | Marital Status | Single | + + + | Temple Affiliation | 1013 | + + + | Race | White | + + + | Ethnic Group | Not or | + + + Author + + + | Author | [facility] | | | and [place] | + + + | Organization | [facility] | | | and [place] | + + + | Address | Unknown | + + + | Phone | Unavailable | + + + Support + + + + + | Name | Relationship | Address | Phone | + + + + + | Marilyn Diallo | ECON | [place] | | | | | [address] | | + + + + + Care Team Providers + +------+ + | Care Process Control Engineer Name | Role | Phone | [...] | | | / | colitis, | CORPORATE QUALITY ENGINEER [address] | GARMENT PRESSER [address] | | | | Gastroenterol | unspecified | [facility] | [address] | | | | ogy | follow up | [place], | [address] | | | | | ulcerative | [address] | [place], | | | | | colitis/per | [place], | [place] [address] | | | | | lexus/moda | [place] [address] | Phone: | | | | | Procedures | Phone: | [phone] | | | | | OFFICE VISIT | [phone] | Fax: | | | | | REGULAR | Fax: | [phone] | | | | | | [phone] | | +--------+--------+ + + + + Encounter Details +--------+---------+ + + + | Date | Type | Department | Care Team | Description | +--------+---------+ + + + | 08/14/ | Office | [facility] | [facility], | Ulcerative colitis, | | 2013 | Visit | GASTROENTEROLOGY | KYRA [address] | with rectal bleeding | | | | [address] [place] | [address] | ([facility]) (Primary Dx) | | | | [address] [place], [place] | [place], [place] | | | | | [address] | [address] | | | | | [phone] | | | +--------+---------+ + + + [...] COLONOSCOPY performed by Aris Schmid MD at [facility] Family History Problem [...] 2019 | Office | | [address] | | | | Visit | | [place], | | | | | | [place] [address] | | | | | | [phone] | | | | | | | | +--------+ + + + + | 07/09/ | Virtual | Gastroenterology | Osito Bowen | | | 2019 | Office | | MD Jonathan [address] | | | | Visit | | [place] [address] | | | | | | [phone] | | | | | | | [...]
--- OUTSIDE RECORDS SUMMARY | ~2020-06-03 | XMS | Encounter Summary ---
Demographics + + + | Address | [address] | | | [place] [address] | + + + | Home Phone | | + + + | Preferred Language | Unknown | + + + | Marital Status | Single | + + + | Adventism Affiliation | 1013 | + + + [...] | [place] | | | | | [address] | | + + + + + Care Team Providers + +------+ + | Care Cigar Packer And Sorter Name | Role | Phone | + [...] Description | +--------+--------+ + + + | 06/01/ | Refill | [facility] | Cruz Gonzalez | Medication Refill | | 2019 | | GASTROENTEROLOGY | MD Timothy [address] | | | | | [address] | [address] [place], [place] | | | | | [place], [place] | [address] | | | | | [address] | | | | | | [phone] | | | +--------+--------+ + + + [...] encounter Miscellaneous Notes Telephone Encounter - Cliff Bojorquez Dry Transfer Man - 06/01/2019 3:37 PM PDTPatient aware Rx sent. elep jagruti Encounter - Cliff Bojorquez Dry Transfer Man - 06/01/2019 1:49 PM PDTPatient called to get refill on Prednisone. Request came through from pharmacy under Dr. Gonzalez's name but she is a patient of Dr. Twin kaur. Colonoscopy done 01/26/[address] Bowen. Last seen 01/03/[address] Bowen. Next appt 07/18/[address] Bowen, please review and fill if able. documented in this encounter Plan of Treatment +--------+ + + + + | Date | Type | Specialty | Care Team | Description | +--------+ + + + + | 06/04/ | Virtual | Gastroenterology | Natalie, | | 2019 | Office | | [address] | | | | Visit | | [place], | | | | | | [place] [address] | | | | | | [phone] | | | | | | | | +--------+ + + + + | 07/09/ | Virtual | Gastroenterology | Osito Bowen | | | 2020 | Office | | MD Jonathan [address] | | | | Visit | | [place] [address] | | | | | | [phone] | | | | | | | | +--------+ + + + + documented as of this encounter Visit Diagnoses Not on filedocumented in this encounter"
--- OUTSIDE RECORDS SUMMARY | ~2020-06-03 | XMS | Encounter Summary ---
Demographics + + + | Address | [address] | | | [place] [address] | + + + | Home Phone [...] Author + + + | Author | [facility] | | | and [place] | + + + | Organization | [facility] | | | and [place] | + + + | Address | Unknown | + + + | Phone | Unavailable | + + + Support + + + + + | Name | Relationship | Address | Phone | + + + + + | Marilyn Diallo | ECON | [place] | | | | | [address] | | + + + + + Care Team Providers + +------+ + | Care Picking Machine Operator Name | Role | Phone | + +------+ + | Carlos Díaz NP | PCP | | + +------+ + Encounter Details +--------+ + + + + | Date | Type | Department | Care Team | Description | +--------+ + + + + | 03/10/ | Hospital | [facility] | [facility], | Ulcerative colitis, | | 2016 | Encounter | MED CTR LABORATORY | [address]RA [address] | unspecified with | | | | [address] [place] | [address] | other complication | | | | [place], [place] | [place], [place] | ([facility]) | | | | [address] | [address] | | | | | [phone] | | | +--------+ + + + [...] + + + +---------+ + + | acetaminophen | Take 650 mg by mouth | | 0 | | | | (TYLENOL) 325 mg | every 4 hours as | | | | | | tablet | needed for Pain. | | | | | + + + +---------+ + + | adalimumab (HUMIRA | Inject 0.8 mLs under | 2 kit | 2 | 01/02/20 | | | PEN) 40 mg/0.8 mL | the skin every 14 | | | 16 | 6 | | injection (pen) | days. | | | | | [...] [place], | | | | | | [place] [address] | | | | | | [phone] | | | | | | | | +--------+ + + + + | 07/09/ | Virtual | Gastroenterology | Osito Bowen | | | 2019 | Office | | MD Jonathan [address] | | | | Visit | | [place] [address] | | | | | | [phone] | | | | | | | | +--------+ + + + + documented as of this encounter Procedures + +--------+ + + + | Procedure Name | Priori | Date/Time | Associated Diagnosis | Comments | | | ty | | | | + +--------+ + + + | SEDIMENTATION RATE | Routin | 03/10/2016 | Ulcerative | Results for this | | | e | 12:33 PM | colitis, unspecified | procedure are in the | | | | PDT | with other | results section. | | | | | complication (HCC) | | + +--------+ + + + | CBC WITH | Routin | 03/10/2016 | Ulcerative | Results for this | | DIFFERENTIAL | e | 12:33 PM | colitis, unspecified | procedure are in the | | | | PDT | with other | results section. | | | | | complication (HCC) | | + +--------+ + + + | C-REACTIVE PROTEIN, | Routin | 03/10/2016 | Ulcerative | Results for this | | HIGH SENSITIVITY | e | 12:33 PM | colitis, unspecified | procedure are in the | | | | PDT | with other | results section. | | | | | complication (HCC) | | + +--------+ + + [...] | | | Sensitive | | | [facility] | | [...] | + + + + + | [facility] | [address] | [place] | [phone] | | [facility] | | [address] | | | - LABORATORY | | | | + + + + + Sedimentation Rate (03/10/2016 12:33 PM PDT) + +-------+ + + + | Component | Value | Ref Range | Performed | Pathologist | | | | | At | Signature | + +-------+ + + + | Erythrocyte | 1 | <20 mm/hr | [facility] | | | | | | [facility] [...] + | [facility] | [address] | [place] | [phone] | | [facility] | | [address] | | | - LABORATORY | | [...] | | Cells | | | [facility] | | [...] | Lymphocytes | | K/uL | [facility] | | | | | | MEDICAL | | | | | | CENTER - | | | | | | LABORATORY | | + + + + + + | Absolute | 0.60 | 0.00 - 1.00 | [facility] | | | Monocytes | | K/uL | [facility] | | | | | | MEDICAL | | | | | | CENTER - | | | | | | LABORATORY | | + + + + + + | Absolute | 0.10 | 0.00 - 0.40 | [facility] | | | Eosinophils | | K/uL | [facility] | | | | | | MEDICAL | | | | | | CENTER - | | | | | | LABORATORY | | + + + + + + | Absolute | 0.00 | 0.00 - 0.10 | [facility] | | | Basophils | | K/uL | [facility] | [...] ST. | [address] | [place] | [phone] | | [facility] | | [address] | | | - LABORATORY | | | | + + + + + documented in this encounter Visit Diagnoses + + | Diagnosis | + + | Ulcerative colitis, unspecified with other complication (HCC) | + + documented in this encounter"
--- OUTSIDE RECORDS SUMMARY | ~2020-06-03 | XMS | Encounter Summary ---
Demographics + + + | Address | [address] | | | [place] [address] | + + + | Home Phone [...] Author + + + | Author | [facility] | | | and [place] | + + + | Organization | [facility] | | | and [place] | + + + | Address | Unknown | + + + | Phone | Unavailable | + + + Support + + + + + | Name | Relationship | Address | Phone | + + + + + | Marilyn Diallo | ECON | [place] | | | | | [address] | | + + + + + Care Team Providers + +------+ + | Care Food Products Sales Representative Name | Role | Phone | + [...] + + | 02/09/ | Telephone | [facility] | [facility], | Other (Message from | | 2015 | | GASTROENTEROLOGY | KYRA [address] | Pharmacy) | | | | [address] [place] | [address] | | | | | [address] [place], [place] | [place], [place] | | | | | [address] | [address] | | | | | [phone] | | | +--------+ + + + [...] Deleon - 02/10/2016 1:48 PM PDTFranklinda from [facility] called and verified that they have [...] | | | | | | [place] [address] | | | | | | [phone] | | | | | | | | +--------+ + + + + | 07/09/ | Virtual | Gastroenterology | Osito Bowen | | | 2019 | Office | | MD Jonathan [address] | | | | Visit | | [place] [address] | | | | | | [phone] | | | | | | | | +--------+ + + + + documented as of this encounter Visit Diagnoses Not on filedocumented in this encounter"
--- OUTSIDE RECORDS SUMMARY | ~2020-06-03 | XMS | Encounter Summary ---
Demographics + + + | Address | [address] | | | [place] [address] | + + + | Home Phone | | + + + | Preferred Language | Unknown | + + + | Marital Status | Single | + + + | Zoroastrian Affiliation | 1013 | + + + | Race | White | + + + | Ethnic Group | Not or | + + + Author + + + | Author | [facility] | | | and [place] | + + + | Organization | [facility] | | | and [place] | + + + | Address | Unknown | + + + | Phone | Unavailable | + + + Support + + + + + | Name | Relationship | Address | Phone | + + + + + | Marilyn Diallo | ECON | [place] | | | | | [address] | | + + + + + Care Team Providers + +------+ + | Care Landfill Gas Technician Name | Role | Phone | [...] | | | / | colitis, | LINTER SAW SHARPENER [address] | 3D DESIGNER [address] | | | | Gastroenterol | unspecified | [facility] | [address] | | | | ogy | Medication | [place], | [address] | | | | | Reasons/moda | [address] | [place], | | | | | /arjun | [place], | [place] [address] | | | | | Procedures | [place] [address] | Phone: | | | | | OFFICE VISIT | Phone: | [phone] | | | | | REGULAR | [phone] | Fax: | | | | | | Fax: | [phone] | | | | | | [phone] | | +--------+--------+ + + + + Encounter Details +--------+---------+ + + + | Date | Type | Department | Care Team | Description | +--------+---------+ + + + | 05/20/ | Office | [facility] | [facility], | Ulcerative colitis, | | 2015 | Visit | GASTROENTEROLOGY | KYRA [address] | with rectal bleeding | | | | [address] [place] | [address] | ([facility]) (Primary Dx) | | | | [address] [place], [place] | [place], [place] | | | | | [address] | [address] | | | | | [phone] | | | +--------+---------+ + + + [...] Laterality: N/A; Surgeon: Aris Schmid MD; Location: [facility] Colonoscopy N/A 11/27/2014 Procedure: COLONOSCOPY; Surgeon: Aris Schmid MD; Location: [facility] T Sigmoid colon [...] [place] | | | | | | [place] [address] | | | | | | [phone] | | | | | | | | +--------+ + + + + | 07/09/ | Virtual | Gastroenterology | Osito Bowen | | | 2019 | Office | | MD Jonathan [address] | | | | Visit | | [place] [address] | | | | | | [phone] | | | | | | | [...]
--- OUTSIDE RECORDS SUMMARY | ~2020-06-03 | XMS | Encounter Summary ---
Demographics + + + | Address | [address] | | | [place] [address] | + + + | Home Phone | | + + + | Preferred Language | Unknown | + + + | Marital Status | Single | + + + | Mandaen Affiliation | 1013 | + + + | Race | White | + + + | Ethnic Group | Not or | + + + Author + + + | Author | [facility] | | | and [place] | + + + | Organization | [facility] | | | and [place] | + + + | Address | Unknown | + + + | Phone | Unavailable | + + + Support + + + + + | Name | Relationship | Address | Phone | + + + + + | Marilyn Diallo | ECON | [place] | | | | | [address] | | + + + + + Care Team Providers + +------+ + | Care Legal Job Titles Name | Role | Phone | + +------+ + | Carlos Díaz NP | PCP | | + +------+ + Encounter Details +--------+ + + + + | Date | Type | Department | Care Team | Description | +--------+ + + + + | 05/26/ | Orders Only | [facility] | Natalie, | Ulcerative colitis | | 2019 | | GASTROENTEROLOGY | [address] | with rectal bleeding | | | | [address] | [address] [place], | (HCC); Ulcerative | | | | [place], [place] | [place] [address] | colitis, unspecified | | | | [address] | [phone] | with unspecified | | | | [phone] | | complications (HCC) | +--------+ + [...] [place], | | | | | | [place] [address] | | | | | | [phone] | | | | | | | | +--------+ + + + + | 07/09/ | Virtual | Gastroenterology | Osito Bowen | | | 2019 | Office | | MD Jonathan [address] | | | | Visit | | [place] [address] | | | | | | [phone] | | | | | | | [...]
--- OUTSIDE RECORDS SUMMARY | ~2020-06-03 | XMS | Encounter Summary ---
Demographics + + + | Address | [address] | | | [place] [address] | + + + | Home Phone [...] Author + + + | Author | [facility] | | | and [place] | + + + | Organization | [facility] | | | and [place] | + + + | Address | Unknown | + + + | Phone | Unavailable | + + + Support + + + + + | Name | Relationship | Address | Phone | + + + + + | Marilyn Diallo | ECON | [place] | | | | | [address] | | + + + + + Care Team Providers + +------+ + | Care Redevelopment Specialist Name | Role | Phone | [...] [address] | | | | | [address] [place], [place] | [place], [place] | | | | | [address] | [address] | | | | | [phone] | | | +--------+ + + + [...] 2019 | Office | | [address] | | | | Visit | | [place] | | | | | | [place] [address] | | | | | | [phone] | | | | | | | | +--------+ + + + + | 07/09/ | Virtual | Gastroenterology | Osito Bowen | | 2019 | Office | | MD Jonathan [address] | | | | Visit | | [place] [address] | | | | | | [phone] | | | | | | | | +--------+ + + + + documented as of this encounter Visit Diagnoses Not on filedocumented in this encounter"
--- OUTSIDE RECORDS SUMMARY | ~2020-06-03 | XMS | Encounter Summary ---
Demographics + + + | Address | [address] | | | [place] [address] | + + + | Home Phone | | + + + | Preferred Language | Unknown | + + + | Marital Status | Single | + + + | Restorationist Affiliation | 1013 | + + + | Race | White | + + + | Ethnic Group | Not or | + + + Author + + + | Author | [facility] | | | and [place] | + + + | Organization | [facility] | | | and [place] | + + + | Address | Unknown | + + + | Phone | Unavailable | + + + Support + + + + + | Name | Relationship | Address | Phone | + + + + + | Marilyn Diallo | ECON | [place] | | | | | [address] | | + + + + + Care Team Providers + +------+ + | Care Public Health Training Assistant Name | Role | Phone | + +------+ + | Carlos Díaz NP | PCP | | + +------+ + Reason for Visit +--------+--------+ + | Reason | Onset | Comments | | | Date | | +--------+--------+ + | Other | 05/08/ | needs appt after induction dose of remicade | | | 2013 | | +--------+--------+ + Encounter Details +--------+ + + + + | Date | Type | Department | Care Team | Description | +--------+ + + + + | 05/08/ | Telephone | [facility] | [facility], | Other (needs appt | | 2013 | | GASTROENTEROLOGY | KYRA [address] | after induction dose | | | | [address] [place] | [address] | of remicade) | | | | [address] [place] | [place] | | | | | [address] | [address] | | | | | [phone] | | | +--------+ + + + [...] Telephone Encounter - Elana Rodriguez RN - 05/08/2014 1:12 PM PDTDiscussed with jennifer she wo uld like for patient to decrease prednisone by 5mg every week until off the medication, call ed patient and advised she verbalized understanding. elephone Encounter - Elana Rodriguez RN - 05/08/2014 11:39 AM PD TCalled patient and confirmed that she is scheduled for may.14 for her 1st remicade infusion, Jennifer would like to see patient after the induction of the remicade advised patient will put a reminder in to call her at that point for an office appt, patient verbalized christian charles, patient also is wondering about the prednisone she is at 40mg daily right now wondering a bout tapering advised will discuss with jennifer and will call her back. documented in this encounter Plan of Treatment +--------+ + + + + | Date | Type | Specialty | Care Team | Description | +--------+ + + + + | 06/04/ | Virtual | Gastroenterology | Natalie, | | | 2019 | Office | | [address] | | | | Visit | | [place] | | | | | | [place] [address] | | | | | | [phone] | | | | | | | | +--------+ + + + + | 07/09/ | Virtual | Gastroenterology | Osito Bowen | | | 2019 | Office | | MD Jonathan [address] | | | | Visit | | [place] [address] | | | | | | [phone] | | | | | | | | +--------+ + + + + documented as of this encounter Visit Diagnoses Not on filedocumented in this encounter"
--- OUTSIDE RECORDS SUMMARY | ~2020-06-03 | XMS | Encounter Summary ---
Demographics + + + | Address | [address] | | | [place] [address] | + + + | Home Phone [...] [place] | | | | | [address] | | + + + + + Care Team Providers + +------+ + | Care Concessionist Name | Role | Phone | + [...] | Telephone | [facility] [place] | [facility], | Other (diarrhea) | | 2013 | | GASTROENTEROLOGY | KYRA [address] | | | | | [address] [place] | [address] | | | | | [address] [place], [place] | [place], [place] | | | | | [address] | [address] | | | | | [phone] | | | +--------+ + + + [...] she has had her labs drawn at [facility] in [place] this morning. 10:2 6 AM PDTTelephone Encounter - Elana Rodriguez RN - 04/02/2014 2:[address]w crump, he would like for patient to have bloodwork drawn cbc,cmp,sed rate,crp, she would like orders sent [facility] [place], she states will have them drawn first [...] 2019 | Office | | [address] | | | | Visit | | [place] | | | | | | [place] [address] | | | | | | [phone] | | | | | | | | +--------+ + + + + | 07/09/ | Virtual | Gastroenterology | Osito Bowen | | 2019 | Office | | MD Jonathan [address] | | | | Visit | | [place] [address] | | | | | | [phone] | | | | | | | [...]
--- OUTSIDE RECORDS SUMMARY | ~2020-06-03 | XMS | Encounter Summary ---
Demographics + + + | Address | [address] | | | [place] [address] | + + + | Home Phone | | + + + | Preferred Language | Unknown | + + + | Marital Status | Single | + + + | Bahai Affiliation | 1013 | + + + | Race | White | + + + | Ethnic Group | Not or | + + + Author + + + | Author | [facility] | | | and [place] | + + + | Organization | [facility] | | | and [place] | + + + | Address | Unknown | + + + | Phone | Unavailable | + + + Support + + + + + | Name | Relationship | Address | Phone | + + + + + | Marilyn Diallo | ECON | [place] | | | | | [address] | | + + + + + Care Team Providers + +------+ + | Care Telescope Operator Name | Role | Phone | [...] | | colitis | [place], | [address] | | | | | Procedures | [address] | [place], | | | | | [place] | [address] | [place] [address] | | | | | INFUSION, | [address] | Phone: | | | | | THERAP/PROPH | [place], | [phone] | | | | | /[place] | [place] [address] | Fax: | | | | | ITIAL,[address]ST | Phone: | [phone] | | | | | [place] | [phone] | | | | | | INFLIXIMAB | Fax: | | | | | | INJECTION, | [phone] | | | | | | 10 MG WSM | | | | | | | OP INF | | | | | | | REMICADE | | | +--------+--------+ + + + + Encounter Details +--------+ + + + + | Date | Type | Department | Care Team | Description | +--------+ + + + + | 02/11/ | Hospital | [facility] | [facility], | Ulcerative colitis, | | 2015 | Encounter | MED CTR OP INFUSION | [address]RA [address] | unspecified | | | | [address] | [address] | complication (HCC) | | | | [place], [place] | [place], [place] | (Primary Dx) | | | | [address] | [address] | | | | | [phone] | | | +--------+ + + + [...] 2019 | Office | | [address] | | | | Visit | | [place], | | | | | | [place] [address] | | | | | | [phone] | | | | | | | | +--------+ + + + + | 07/09/ | Virtual | Gastroenterology | Osito Bowen | | | 2019 | Office | | MD Jonathan [address] | | | | Visit | | [place] [address] | | | | | | [phone] | | | | | | | | +--------+ + + + + documented as of this encounter Visit Diagnoses + + | Diagnosis | + + | Ulcerative colitis, unspecified complication - Primary | + + documented in this encounter"
--- OUTSIDE RECORDS SUMMARY | ~2020-06-03 | XMS | Encounter Summary ---
Demographics + + + | Address | [address] | | | [place] [address] | + + + | Home Phone | | + + + | Preferred Language | Unknown | + + + | Marital Status | Single | + + + | Congregational Affiliation | 1013 | + + + [...] | [place] | | | | | [address] | | + + + + + Care Team Providers + +------+ + | Care Assemblyman Or Woman Name | Role | Phone | + +------+ + PCP | Unavailable | + +------+ + Encounter Details +--------+ + + + + | Date | Type | Department | Care Team | Description | +--------+ + + + + | 04/02/ | Hospital | [facility] | [facility], | | | 2010 | Encounter | MED CTR LABORATORY | [address] | | | | | [address] [place] | [address] | | | | | [place], [place] | [place], [place] | | | | | [address] | [address] | | | | | [phone] | | | +--------+ + + + [...] | | | | | | [place] [address] | | | | | | [phone] | | | | | | | | +--------+ + + + + | 07/09/ | Virtual | Gastroenterology | Osito Bowen | | 2019 | Office | | MD Jonathan [address] | | | | Visit | | [place] [address] | | | | | | [phone] | | | | | | | | +--------+ + + + + documented as of this encounter Visit Diagnoses Not on filedocumented in this encounter"
--- OUTSIDE RECORDS SUMMARY | ~2020-06-03 | XMS | Encounter Summary ---
Demographics + + + | Address | [address] | | | [place] [address] | + + + | Home Phone | | + + + | Preferred Language | Unknown | + + + | Marital Status | Single | + + + | Baptism Affiliation | 1013 | + + + [...] [place] | | | | | [address] | | + + + + + Care Team Providers + +------+ + | Care Staking Technician Name | Role | Phone | [...] | 01/08/ | Telephone | [facility] [place] | [facility], | Other (need labs) | | 2013 | | GASTROENTEROLOGY | KYRA Singer [address] | | | | | [address] [place] | [address] | | | | | [address] [place] | [place] | | | | | [address] | [address] | | | | | [phone] | | | +--------+ + + + [...] Telephone Encounter - Graciela Narayanan Master of [employer] - 01/08/2014 3:19 PM PDTKeri call wants labs done at [facility] Orders were faxed. elephone Encounter - Graciela Narayanan Maste r of [employer] - 01/08/2014 3:05 PM PDTLeft message for patient to return call to let us know wh ere to send lab orders?Electronically signed by Graciela Narayanan Master of [employer] at 014 3:06 PM PDTTelephone Encounter - [...] 2019 | Office | | [address] | | | | Visit | | [place] | | | | | | [place] [address] | | | | | | [phone] | | | | | | | | +--------+ + + + + | 07/09/ | Virtual | Gastroenterology | Osito Bowen | | 2019 | Office | | MD Jonathan [address] | | | | Visit | | [place] [address] | | | | | | [phone] | | | | | | | [...]
--- OUTSIDE RECORDS SUMMARY | ~2020-06-03 | XMS | Encounter Summary ---
Demographics + + + | Address | [address] | | | [place] [address] | + + + | Home Phone [...] Author + + + | Author | [facility] | | | and [place] | + + + | Organization | [facility] [...] [place] | | | | | [address] | | + + + + + Care Team Providers + +------+ + | Care Automatic Head Sawyer Name | Role | Phone | + [...] [address] | | | | | [address] [place], [place] | [place], [place] | | | | | [address] | [address] | | | | | [phone] | | | +--------+ + + + [...] Telephone Encounter - Graciela Narayanan Master of [employer] - 05/09/2015 9:19 AM PDTWill talk to Danielle regarding new authorization to see if patient needs to make an appointment to tim robe treatment. elephone Encounter - Graciela Narayanan Master of [employer] - 05/09/2015 8:29 AM PDTLef t message [...] 2019 | Office | | [address] | | | | Visit | | [place], | | | | | | [place] [address] | | | | | | [phone] | | | | | | | | +--------+ + + + + | 07/09/ | Virtual | Gastroenterology | Osito Bowen | | 2019 | Office | | MD Jonathan [address] | | | | Visit | | [place] [address] | | | | | | [phone] | | | | | | | | +--------+ + + + + documented as of this encounter Visit Diagnoses Not on filedocumented in this encounter"
--- OUTSIDE RECORDS SUMMARY | ~2020-06-03 | XMS | Encounter Summary ---
Demographics + + + | Address | [address] | | | [place] [address] | + + + | Home Phone | | + + + | Preferred Language | Unknown | + + + | Marital Status | Single | + + + | Orthodox Affiliation | 1013 | + + [...] [place] | | | | | [address] | | + + + + + Care Team Providers + +------+ + | Care Fraud Examiner Name | Role | Phone | + [...] + + | 06/16/ | Telephone | [facility] | [facility], | Appointment | | 2012 | | GASTROENTEROLOGY | KYRA Singer [address] | | | | | [address] [place] | [address] | | | | | [address] [place], [place] | [place], [place] | | | | | [address] | [address] | | | | | [phone] | | | +--------+ + + + [...] | | | | | | [place] [address] | | | | | | [phone] | | | | | | | | +--------+ + + + + | 07/09/ | Virtual | Gastroenterology | Osito Bowen | | 2019 | Office | | MD Jonathan [address] | | | | Visit | | [place] [address] | | | | | | [phone] | | | | | | | | +--------+ + + + + documented as of this encounter Visit Diagnoses Not on filedocumented in this encounter"
--- OUTSIDE RECORDS SUMMARY | ~2020-06-03 | XMS | Encounter Summary ---
Demographics + + + | Address | [address] | | | [place] [address] | + + + | Home Phone [...] [place] | | | | | [address] | | + + + + + Care Team Providers + +------+ + | Care Shader And Toner Name | Role | Phone | + [...] Specialty | Gastroenterol | Diagnoses | | [place], | | | Services | ogy / | Ulcerative | [place], | Lucrecia, | | | Required | Infusion | colitis, | Lucrecia, | BUILDING PERFORMANCE SPECIALIST [address] | | | | Therapy | unspecified | BUILDING PERFORMANCE SPECIALIST [address] | | | | | Procedures | [address] | [address] | | | | | [place] | [address] | [place], | | | | | [address] | [place], | [place] [address] | | | | | INJECTION, | [place] [address] | Phone: | | | | | 10 MG | Phone: | [phone] | | | | | | [phone] | Fax: | | | | | | Fax: | [phone] | | | | | | [phone] | | +--------+ + + + + [...] | | | / | colitis, | UNIFORM CAP OPERATOR [address] | BUILDING PERFORMANCE SPECIALIST [address] | | | | Gastroenterol | unspecified | [facility] | [address] | | | | ogy | follow up | [place], | [address] | | | | | ulcerative | [address] | [place], | | | | | colits-per | [place], | [place] [address] | | | | | lexus/pcp | [place] [address] | Phone: | | | | | arjun/mod | Phone: | [phone] | | | | | a | [phone] | Fax: | | | | | Procedures | Fax: | [phone] | | | | | OFFICE VISIT | [phone] | | | | | | REGULAR | | | +--------+--------+ + + + + Encounter Details +--------+---------+ + + + | Date | Type | Department | Care Team | Description | +--------+---------+ + + + | 04/11/ | Office | [facility] | [facility], | Ulcerative colitis, | | 2013 | Visit | GASTROENTEROLOGY | KYRA Singer [address] | unspecified (Primary | | | | [address] | [address] | Dx); Abdominal | | | | [address] [place], [place] | [place], [place] | pain, lower, | | | | [address] | [address] | unspecified | | | | [phone] | | laterality; Bowel | | | | | | habit changes | +--------+---------+ + + + Social History [...] + + + | Blood Pressure | 126/80 | 04/11/2014 3:32 PM | | | | | PDT | | + + + + + | Pulse | 68 | 04/11/2014 3:32 PM | | | | | PDT | | + + + + + | Temperature | 36.6 C (97.8 F) | 04/11/2014 3:32 PM | | | | | PDT | | + + + + + | Respiratory Rate | 16 | 04/11/2014 3:32 PM | | | | | PDT | | + + + + + | Oxygen Saturation | - | - | | + + + + + | Inhaled Oxygen | - | - | | | Concentration | | | | + + + + + | Weight | 81.2 kg (179 lb) | 04/11/2014 3:32 PM | | | | | PDT | | + + + + + | Height | 162.6 cm (5' 4") | 04/11/2014 3:32 PM | | | | | PDT | | + + + + + | Body Mass Index | 30.73 | 04/11/2014 3:32 PM | | | | | PDT | | + + + + + documented in this encounter Patient Instructions Patient Instructions Lucrecia Blank ARNP - 04/11/2014 4:00 PM PDT Infliximab Solution for injection What is this medicine? INFLIXIMAB (in FLIX i mab) is used to treat Crohn's disease and ulcerative colitis. It is a lso used to treat ankylosing spondylitis, psoriasis, and some forms of arthritis. This medicine may be used for other purposes; ask your health care provider or pharmacist i f you have questions. What should I tell my health care provider before I take this medicine? They need to know if you have any of these conditions: diabetes exposure to tuberculosis heart failure hepatitis or liver disease immune system problems infection lung or breathing disease, like COPD multiple sclerosis current or past resident of [place] or [facility] seizure disorder an unusual or allergic reaction to infliximab, mouse proteins, other medicines, foods, d yes, or preservatives or trying to get breast-feeding How should I use this medicine? This medicine is for injection into a vein. It is usually given by a health care profession al in a hospital or clinic setting. A special MedGuide will be given to you by the pharmacist with each prescription and refill . Be sure to read this information carefully each time. Talk to your emergency medical services coordinator regarding the use of this medicine in children. Special care may be needed. Overdosage: If you think you have taken too much of this medicine contact a poison control center or emergency room at once. NOTE: This medicine is only for you. Do not share this medicine with others. What if I miss a dose? It is important not to miss your dose. Call your doctor or health child care sitter if you are unable to keep an appointment. What may interact with this medicine? Do not take this medicine with any of the following medications: anakinra rilonacept This medicine may also interact with the following medications: vaccines This list may not describe all possible interactions. Give your health care provider a list of all the medicines, herbs, non-prescription drugs, or dietary supplements you use. Also t ell them if you smoke, drink alcohol, or use illegal drugs. Some items may interact with you r medicine. What should I watch for while using this medicine? Visit your doctor or health child care sitter for regular checks on your progress. If you get a cold or other infection while receiving this medicine, call your doctor or a [facility] child care sitter. Do not treat yourself. This medicine may decrease your body's ability to fight infections. Before beginning therapy, your doctor may do a test to see if you have been exposed to tuberculosis. This medicine may make the symptoms of heart failure worse in some patients. If you notice symptoms such as increased shortness of breath or swelling of the ankles or legs, contact yo ur health care provider right away. If you are going to have surgery or dental work, tell your health child care sitter or dent ist that you have received this medicine. If you take this medicine for plaque psoriasis, stay out of the sun. If you cannot avoid be ing in the sun, wear protective clothing and use sunscreen. Do not use sun lamps or tanning beds/booths. What side effects may I notice from receiving this medicine? Side effects that you should report to your doctor or health child care sitter as soon as p ossible: allergic reactions like skin rash, itching or hives, swelling of the face, lips, or tong ue chest pain fever or chills, usually related to the infusion muscle or joint pain red, scaly patches or raised bumps on the skin signs of infection - fever or chills, cough, sore throat, pain or difficulty passing uri ne swollen lymph nodes in the neck, underarm, or groin areas unexplained weight loss unusual bleeding or bruising unusually weak or tired yellowing of the eyes or skin Side effects that usually do not require medical attention (report to your doctor or health child care sitter if they continue or are bothersome): headache heartburn or stomach pain nausea, vomiting This list may not describe all possible side effects. Call your doctor for medical advice a bout side effects. You may report side effects to FDA at 4-163-LFD-1746. Where should I keep my medicine? This drug is given in a hospital or clinic and will not be stored at home. NOTE:This sheet is a summary. It may not cover all possible information. If you have questi ons about this medicine, talk to your doctor, pharmacist, or health care provider. Copyright 2013 Gold Standard documented in this encounter Progress Notes Lucrecia Blank ARNP - 04/11/2014 3:46 PM PDTFormatting of this note might be differe nt from the original. Ria Hastings is a 34 y.o. female here for followup ulcerative colitis. History of present illness: Patient states that she was feeling well for about 1 month. Pills were coming out full in h er BM. She split with her boyfriend and began to have trouble again about 1 week later. Complains of generalized joint pains. [place] a bit more constipated. Stools can either be for med or soft. Having from 5-15 BM per day. No stools are bloody. Started Prednisone 40 mg jerzy ly about 1 week ago and feeling better. Now having 5 BM per day. More at night. Stools still can be runny. Become looser as the day goes on. Patient is scheduled at iron injections with her primary provider. She admits to missing h er last iron injection. Allergies Allergen Reactions Sulfa Antibiotics Past Medical [...] Eyes: Sclera clear Mouth: Mucous membranes moist Extremities: No clubbing or edema Skin: Warm, dry, intact. No rashes noted Neuro: Cranial nerves 2-12 grossly intact. Psych: Appropriate mood and affect. Laboratory 04/03/2014: Iron 13 Complains of metabolic panel within normal limits with the exception of AST 9 ALT 6 C-reactive protein 25 WBC 9.1 Hemoglobin 10.2 Hematocrit 31.9 Platelets 244,000 Sedimentation rate 54 Assessment 1. Ulcerative colitis, unspecified (HCC) Ambulatory referral to Gastroenterology ([facility]) 2. Abdominal pain, lower, unspecified laterality 3. Bowel habit changes Plan: Patient having symptoms related to her ulcerative colitis despite 40 mg of prednisone. Adv ised patient that the next step would be Remicade infusions. Patient is to have tuberculosis skin test done with primary provider. She will have result s faxed to our office. Once she has tuberculosis skin test results, will sent prescription off for Remicade and schedule infusions. She will now need to have CBC every 3 months due to immunosuppressive therapy. She is to remain on 40 mg of prednisone until further notice. Encourage patient to followup with control. Will follow up with results. Patient [...] | | | | | | [place] [address] | | | | | | [phone] | | | | | | | | +--------+ + + + + | 07/09/ | Virtual | Gastroenterology | Osito Bowen | | | 2020 | Office | | MD Jonathan [address] | | | | Visit | | [facility] [address] | | | | | | [phone] | | | | | | | | +--------+ + + + + + + +--------+ + + | Name | Type | Priori | Associated Diagnoses | Order Schedule | | | | ty | | | + + +--------+ + + | Ambulatory referral | Outpatient | Routin | Ulcerative | 1 Occurrences | | to Gastroenterology | Referral | e | colitis, unspecified | starting 04/11/2014 | | ([facility]) | | | | until 04/11/2015 | + + +--------+ + + documented as of this encounter Visit Diagnoses + + | Diagnosis | + + | Ulcerative colitis, unspecified - Primary | + + | Abdominal pain, lower, unspecified laterality | + + | Bowel habit changes Other symptoms involving digestive system | + + documented in this encounter
--- OUTSIDE RECORDS SUMMARY | ~2020-06-03 | XMS | Encounter Summary ---
Demographics + + + | Address | [address] | | | [place] [address] | + + + | Home Phone [...] | Marilyn Diallo | ECON | [place] | | | | | [address] | | + + + + + Care Team Providers + +------+ + | Care Hand Lens Polisher Name | Role | Phone | + [...] + + | 05/09/ | Telephone | [facility] | [facility], | [facility] | | 2017 | | GASTROENTEROLOGY | KYRA Singer [address] | | | | | [address] [place] | [address] | | | | | [address] [place], [place] | [place], [place] | | | | | [address] | [address] | | | | | [phone] | | | +--------+ + + + [...] thinks she should continue her care in [place] due to her non compliance wi th [...] | | | | | | [place] [address] | | | | | | [phone] | | | | | | | | +--------+ + + + + | 07/09/ | Virtual | Gastroenterology | Osito Bowen | | 2019 | Office | | MD Yenifer Castillo | | | | Visit | | [place] [address] | | | | | | [phone] | | | | | | | | +--------+ + + + + documented as of this encounter Visit Diagnoses Not on filedocumented in this encounter"
--- OUTSIDE RECORDS SUMMARY | ~2020-06-03 | XMS | Encounter Summary ---
Demographics + + + | Address | [address] | | | [place] [address] | + + + | Home Phone | | + + + | Preferred Language | Unknown | + + + | Marital Status | Single | + + + | Scientologist Affiliation | 1013 | + + + | Race | White | + + + | Ethnic Group | Not or | + + + Author + + + | Author | [facility] | | | and [place] | + + + | Organization | [facility] | | | and [place] | + + + | Address | Unknown | + + + | Phone | Unavailable | + + + Support + + + + + | Name | Relationship | Address | Phone | + + + + + | Marilyn Diallo | ECON | [place] | | | | | [address] | | + + + + + Care Team Providers + +------+ + | Care Job Training Specialist Name | Role | Phone | + +------+ + | Carlos Díaz NP | PCP | | + +------+ + Reason for Visit +--------+--------+ + | Reason | Onset | Comments | | | Date | | +--------+--------+ + | Other | 05/09/ | | | | 2014 | | +--------+--------+ + Encounter Details +--------+ + + + + | Date | Type | Department | Care Team | Description | +--------+ + + + + | 05/09/ | Telephone | [facility] | [place], | Other | | 2014 | | GASTROENTEROLOGY | KYRA Singer [address] | | | | | [address] [place] | [address] | | | | | [address] [place], [place] | [place], [place] | | | | | [address] | [address] | | | | | [phone] | | | +--------+ + + + [...] this encounter Miscellaneous Notes Telephone Encounter - Adriana Wallace - 05/13/2015 10:55 AM PDTPatient called back and cou ldn't make it in this week. Overbooked her 05/20 at 10am. elephone Encounter - Debbie Pinon - 05/13/2015 8:18 AM PD TLVM to schedule patient with jennifer overbook sometime this week 05/13-05/16 per Jennifer. Chart in to be called for Jennifer on Debbie's Desk. 8: 20 AM PDTTelephone Encounter - Grcaiela Narayanan, Master of Arts - 05/09/2015 4:09 PM PDTP atient returned call and said she is doing OK. Not a lot improvement yet. She would like to continue the Humira. Will talk to Jennifer to get new auth. documented in this encounter Plan of Treatment +--------+ + + + + | Date | Type | Specialty | Care Team | Description | +--------+ + + + + | 06/04/ | Virtual | Gastroenterology | Natalie, | | | 2019 | Office | | [address] | | | | Visit | | [place], | | | | | | [place] [address] | | | | | | [phone] | | | | | | | | +--------+ + + + + | 07/09/ | Virtual | Gastroenterology | Osito Bowen | | | 2019 | Office | | MD Jonathan [address] | | | | Visit | | [place] [address] | | | | | | [phone] | | | | | | | | +--------+ + + + + documented as of this encounter Visit Diagnoses Not on filedocumented in this encounter"
--- OUTSIDE RECORDS SUMMARY | ~2020-06-03 | XMS | Encounter Summary ---
Demographics + + + | Address | [address] | | | [place] [address] | + + + | Home Phone [...] Author + + + | Author | [facility] | | | and [place] | + + + | Organization | [facility] | | | and [place] | + + + | Address | Unknown | + + + | Phone | Unavailable | + + + Support + + + + + | Name | Relationship | Address | Phone | + + + + + | Marilyn Diallo | ECON | [place] | | | | | [address] | | + + + + + Care Team Providers + +------+ + | Care Gum Machine Filler Name | Role | Phone | + [...] + + | 12/31/ | Telephone | [facility] | [facility], | Appointment (Follow | | 2015 | | GASTROENTEROLOGY | KYRA Singer [address] | up per Gela needed | | | | [address] [place] | [address] | for patient) | | | | [address] [place], [place] | [place] | | | | | [address] | [address] | | | | | [phone] | | | +--------+ + + + [...] | | | | | | [place] [address] | | | | | | [phone] | | | | | | | | +--------+ + + + + | 07/09/ | Virtual | Gastroenterology | Osito Bowen | | | 2019 | Office | | MD Jonathan [address] | | | | Visit | | [place] [address] | | | | | | [phone] | | | | | | | | +--------+ + + + + documented as of this encounter Visit Diagnoses Not on filedocumented in this encounter"
--- OUTSIDE RECORDS SUMMARY | ~2020-06-03 | XMS | Encounter Summary ---
Demographics + + + | Address | [address] | | | [place] [address] | + + + | Home Phone [...] Author + + + | Author | [facility] | | | and [place] | + + + | Organization | [facility] | | | and [place] | + + + | Address | Unknown | + + + | Phone | Unavailable | + + + Support + + + + + | Name | Relationship | Address | Phone | + + + + + | Marilyn Diallo | ECON | [place] | | | | | [address] | | + + + + + Care Team Providers + +------+ + | Care Stage Driver Name | Role | Phone | + [...] | Infusion | colitis, | Lucrecia, | CABLEWAY OPERATOR [address] | | | | Therapy | unspecified | CABLEWAY OPERATOR [address] | | | | | Procedures | [address] | [address] | | | | | [place] | [address] | [place], | | | | | [address] | [place], | [place] [address] | | | | | INJECTION, | [place] [address] | Phone: | | | | | 10 MG | Phone: | [phone] | | | | | | [phone] | Fax: | | | | | | Fax: | [phone] | | | | | | [phone] | | +--------+ + + + + [...] | | | / | colitis, | CREDIT RISK MANAGEMENT DIRECTOR [address] | CABLEWAY OPERATOR [address] | | | | Gastroenterol | unspecified | [facility] | [address] | | | | ogy | follow up | [place], | [address] | | | | | ulcerative | [address] | [place], | | | | | colits-per | [place], | [place] [address] | | | | | lexus/pcp | [place] [address] | Phone: | | | | | arjun/mod | Phone: | [phone] | | | | | a | [phone] | Fax: | | | | | Procedures | Fax: | [phone] | | | | | OFFICE VISIT | [phone] | | | | | | REGULAR | | | +--------+--------+ + + + + Encounter Details +--------+---------+ + + + | Date | Type | Department | Care Team | Description | +--------+---------+ + + + | 04/11/ | Office | [facility] | [facility], | Ulcerative colitis, | | 2013 | Visit | GASTROENTEROLOGY | KYRA Singer [address] | unspecified (Primary | | | | [address] [place] | [address] | Dx); Abdominal | | | | [address] [place], [place] | [place], [place] | pain, lower, | | | | [address] | [address] | unspecified | | | | [phone] | | laterality; Bowel | | | [...] multiple sclerosis current or past resident of [place] or [facility] seizure disorder an unusual or allergic reaction [...] information carefully each time. Talk to your kitchen food server regarding the use of this medicine in [...] your dose. Call your doctor or health home health care provider if you are unable to keep an [...] medicine? Visit your doctor or health home health care provider for regular checks on your progress. If you get a cold or other infection while receiving this medicine, call your doctor or a [facility] home health care provider. Do not treat yourself. This medicine may [...] surgery or dental work, tell your health home health care provider or dent ist that you have received [...] report to your doctor or health home health care provider as soon as p ossible: allergic reactions [...] (report to your doctor or health home health care provider if they continue or are bothersome): headache heartburn or stomach pain nausea, vomiting This list may not describe all possible side effects. Call your doctor for medical advice a bout side effects. You may report side effects to FDA at 8-193-KNI-6269. Where should I keep my medicine? This [...] week later. Complains of generalized joint pains. [place] a bit more constipated. Stools can either [...] COLONOSCOPY performed by Aris Schmid MD at [facility] Family History [...] colitis, unspecified (HCC) [facility] 2. Abdominal pain, lower, unspecified laterality [...] | | | | | | [place] [address] | | | | | | [phone] | | | | | | | | +--------+ + + + + | 07/09/ | Virtual | Gastroenterology | Osito Bowen | | | 2020 | Office | | MD Jonathan [address] | | | | Visit | | [facility] [address] | | | | | | [phone] | | | | | | | [...] colitis, unspecified | starting 04/11/2014 | | ([facility]) | | | | until 04/11/2015 | [...]
--- OUTSIDE RECORDS SUMMARY | ~2020-06-03 | XMS | Encounter Summary ---
Demographics + + + | Address | [address] | | | [place] [address] | + + + | Home Phone [...] [place] | | | | | [address] | | + + + + + Care Team Providers + +------+ + | Care Store Clerk Checker Name | Role | Phone | + [...] + + | 09/23/ | Refill | [facility] | [facility], | Medication Refill | | 2014 | | GASTROENTEROLOGY | KYRA Singer [address] | | | | | [address] | [address] | | | | | [address] [place], [place] | [place] | | | | | [address] | [address] | | | | | [phone] | | | +--------+--------+ + + + [...] | | | | | | [place] [address] | | | | | | [phone] | | | | | | | | +--------+ + + + + | 07/09/ | Virtual | Gastroenterology | Osito Bowen | | 2019 | Office | | MD Jonathan [address] | | | | Visit | | [place] [address] | | | | | | [phone] | | | | | | | | +--------+ + + + + documented as of this encounter Visit Diagnoses Not on filedocumented in this encounter"
--- OUTSIDE RECORDS SUMMARY | ~2020-06-03 | XMS | Encounter Summary ---
Demographics + + + | Address | [address] | | | [place] [address] | + + + | Home Phone [...] | [place] | | | | | [address] | | + + + + + Care Team Providers + +------+ + | Care Supervisor Hardboard Name | Role | Phone | + [...] | | | / | colitis, | INTERNAL RECRUITER [address] | TRAIN ANNOUNCER [address] | | | | Gastroenterol | unspecified | [facility] | [address] | | | | ogy | follow up | QUAN KHALIL, | [address] | | | | | ulcerative | [address] | [place], | | | | | colits-per | [place], | [place] [address] | | | | | lexus/pcp | [place] [address] | Phone: | | | | | arjun/mod | Phone: | [phone] | | | | | a | [phone] | Fax: | | | | | Procedures | Fax: | [phone] | | | | | OFFICE VISIT | [phone] | | | | | | REGULAR | | | +--------+--------+ + + + + Encounter Details +--------+---------+ + + + | Date | Type | Department | Care Team | Description | +--------+---------+ + + + | 07/09/ | Office | [facility] | [place], | Ulcerative colitis, | | 2013 | Visit | GASTROENTEROLOGY | KYRA Singer [address] | other complication | | | | [address] | [address] | ([facility]) (Primary Dx); | | | | [address] [place], [place] | [place], [place] | Anemia | | | | [address] | [address] | | | | | [phone] | | | +--------+---------+ + + + [...] on your doctor's advice. Talk to your outsewer regarding the use of this medicine in [...] this medicine? Visit your doctor or health director medicare sales for regular checks on your progress. You will need frequent blood checks during the first few months you are receiving the medicine. If you get a cold or other infection while receiving this medicine, call your doctor or [facility] director medicare sales. Do not treat yourself. The medicine may increase your risk of getting an infection. Women should inform their doctor if they wish to become or think they might be pre gnant. There is a potential for serious side effects to an unborn child. Talk to your health director medicare sales or pharmacist for more information. Men may have a reduced sperm count while they are taking this medicine. Talk to your health director medicare sales for more information. This medicine may increase your risk of getting certain kinds of cancer. Talk to your docto r about healthy lifestyle choices, important screenings, and your risk. What side effects may I notice from receiving this medicine? Side effects that you should report to your doctor or health director medicare sales as soon as p ossible: allergic reactions like skin rash, itching or hives, swelling of the face, lips, or tong ue fever, chills, or any other sign of infection severe stomach pain unusual bleeding, bruising unusually weak or tired vomiting yellowing of the eyes or skin Side effects that usually do not require medical attention (report to your doctor or health director medicare sales if they continue or are bothersome): hair loss nausea This list may not describe all possible side effects. Call your doctor for medical advice a bout side effects. You may report side effects to FDA at 4-293-EIK-7599. Where should I keep my medicine? Keep [...] bran; candy that has seeds or nuts 0900[address] [place] [address]. All rights reserve d. This information is [...] COLONOSCOPY performed by Aris Schmid MD at [facility] Family History [...] 2019 | Office | | [address] | | | | Visit | | [place] | | | | | | [place] [address] | | | | | | [phone] | | | | | | | | +--------+ + + + + | 07/09/ | Virtual | Gastroenterology | Osito Bowen | | 2019 | Office | | MD Jonathan [address] | | | | Visit | | [place] [address] | | | | | | [phone] | | | | | | | | +--------+ + + + + documented as of this encounter Visit Diagnoses + + | Diagnosis | + + | Ulcerative colitis, other complication - Primary | + + | Anemia Anemia, unspecified | + + documented in this encounter
--- OUTSIDE RECORDS SUMMARY | ~2020-06-03 | XMS | Encounter Summary ---
Demographics + + + | Address | [address] | | | [place] [address] | + + + | Home Phone [...] [place] | | | | | [address] | | + + + + + Care Team Providers + +------+ + | Care Electrophonic Engineer Name | Role | Phone | + +------+ + | Carlos Díaz NP | PCP | | + +------+ + Encounter Details +--------+ + + + + | Date | Type | Department | Care Team | Description | +--------+ + + + + | 04/01/ | Abstract | [facility] [place] | [facility], | | | 2016 | | GASTROENTEROLOGY | KYRA Singer [address] | | | | | [address] | [address] | | | | | [address] [place], [place] | [place], [place] | | | | | [address] | [address] | | | | | [phone] | | | +--------+ + + + [...] 2019 | Office | | [address] | | | | Visit | | [place], | | | | | | [place] [address] | | | | | | [phone] | | | | | | | | +--------+ + + + + | 07/09/ | Virtual | Gastroenterology | Osito Bowen | | | 2020 | Office | | MD Jonathan [address] | | | | Visit | | [place] [address] | | | | | | [phone] | | | | | | | [...]
--- OUTSIDE RECORDS SUMMARY | ~2020-06-03 | XMS | Encounter Summary ---
Demographics + + + | Address | [address] | | | [place] [address] | + + + | Home Phone | | + + + | Preferred Language | Unknown | + + + | Marital Status | Single | + + + | Sikhism Affiliation | 1013 | + + + | Race | White | + + + | Ethnic Group | Not or | + + + Author + + + | Author | [facility] | | | and [place] | + + + | Organization | [facility] | | | and [place] | + + + | Address | Unknown | + + + | Phone | Unavailable | + + + Support + + + + + | Name | Relationship | Address | Phone | + + + + + | Marilyn Diallo | ECON | [place] | | | | | [address] | | + + + + + Care Team Providers + +------+ + | Care Home Care Manager Rn Name | Role | Phone | + [...] + + | 06/14/ | Telephone | [facility] | [facility], | [facility] | | 2013 | | GASTROENTEROLOGY | KYRA Singer [address] | | | | | [address] | [address] | | | | | [address] [place], [place] | [place], [place] | | | | | [address] | [address] | | | | | [phone] | | | +--------+ + + + [...] 1606 ------ Message from: MONIKA KNOX Created: [facility] May 08, 2014 1142 Regarding: needs an office appt Call patient [...] | | | | | | [place] [address] | | | | | | [phone] | | | | | | | | +--------+ + + + + | 07/09/ | Virtual | Gastroenterology | Osito Bowen | | | 2019 | Office | | MD Jonathan [address] | | | | Visit | | [place] [address] | | | | | | [phone] | | | | | | | | +--------+ + + + + documented as of this encounter Visit Diagnoses Not on filedocumented in this encounter"
--- OUTSIDE RECORDS SUMMARY | ~2020-06-03 | XMS | Encounter Summary ---
Demographics + + + | Address | [address] | | | [place] [address] | + + + | Home Phone | | + + + | Preferred Language | Unknown | + + + | Marital Status | Single | + + + | Jewish Affiliation | 1013 | + + + | Race | White | + + + | Ethnic Group | Not or | + + + Author + + + | Author | [facility] | | | and [place] | + + + | Organization | [facility] | | | and [place] | + + + | Address | Unknown | + + + | Phone | Unavailable | + + + Support + + + + + | Name | Relationship | Address | Phone | + + + + + | Marilyn Diallo | ECON | [place] | | | | | [address] | | + + + + + Care Team Providers + +------+ + | Care Garment Parts Cutter Hand Name | Role | Phone | + +------+ + | Carlos Díaz NP | PCP | | + +------+ + Reason for Visit + +--------+ + | Reason | Onset | Comments | | | Date | | + +--------+ + | Medication Refill | 04/28/ | | | | 2015 | | + +--------+ + Encounter Details +--------+--------+ + + + | Date | Type | Department | Care Team | Description | +--------+--------+ + + + | 04/28/ | Refill | [facility] [place] | [facility], | Medication Refill | | 2015 | | GASTROENTEROLOGY | KYRA Singer [address] | | | | | [address] | [address] | | | | | [address] [place], [place] | [place] | | | | | [address] | [address] | | | | | [phone] | | | +--------+--------+ + + + [...] | | | | | | [place] [address] | | | | | | [phone] | | | | | | | | +--------+ + + + + | 07/09/ | Virtual | Gastroenterology | Osito Bowen | | 2019 | Office | | MD Jonathan [address] | | | | Visit | | [place] [address] | | | | | | [phone] | | | | | | | | +--------+ + + + + documented as of this encounter Visit Diagnoses Not on filedocumented in this encounter"
--- OUTSIDE RECORDS SUMMARY | ~2020-06-03 | XMS | Encounter Summary ---
Demographics + + + | Address | [address] | | | [place] [address] | + + + | Home Phone | | + + + | Preferred Language | Unknown | + + + | Marital Status | Single | + + + | Cheondoism Affiliation | 1013 | + + + [...] [place] | | | | | [address] | | + + + + + Care Team Providers + +------+ + | Care Electrode Cleaning Machine Operator Name | Role | Phone [...] | Telephone | [facility] | [facility], | Other (check on | | 2013 | | GASTROENTEROLOGY | KYRA Singer [address] | patient after | | | | [address] | [address] | procedure and new | | | | [address] [place] | [place] | medications to be | | | | [address] | [address] | ordered) | | | | [phone] | | | +--------+ + + + [...] [facility] Made her a follow [...] | | | | | | [place] [address] | | | | | | [phone] | | | | | | | | +--------+ + + + + | 07/09/ | Virtual | Gastroenterology | Osito Bowen | | | 2019 | Office | | MD Yenifer Castillo | | | | Visit | | [place] [address] | | | | | | [phone] | | | | | | | | +--------+ + + + + documented as of this encounter Visit Diagnoses Not on filedocumented in this encounter"
--- OUTSIDE RECORDS SUMMARY | ~2020-06-03 | XMS | Encounter Summary ---
Demographics + + + | Address | [address] | | | [place] [address] | + + + | Home Phone | | + + + | Preferred Language | Unknown | + + + | Marital Status | Single | + + + | Hoahaoism Affiliation | 1013 | + + + [...] | [place] | | | | | [address] | | + + + + + Care Team Providers + +------+ + | Care Manager Of School Name | Role | Phone | + [...] Description | +--------+--------+ + + + | 05/21/ | Refill | [facility] | Osito Bowen | Medication Refill | | 2019 | | GASTROENTEROLOGY | MD Jonathan [address] | | | | | [address] | [place] [address] | | | | | [place], [place] | [phone] | | | | | [address] | | | | | | [phone] | | | +--------+--------+ + + + [...] this encounter Miscellaneous Notes Telephone Encounter - Indigo Estrada ARNP - 05/22/2020 4:31 PM PDTThis pt I saw la st May 2019 and has been requesting RF after RF. No more RF. Needs an appointment for [facility] erative colitis. I will place labs to be done before appointment they will include stool fidelia ting to check the IBD. Thanks Indigo NP Techristian jagruti Encounter - Ayah Berkowitz, Electromechanical Engineer - 05/22/2020 4:21 PM [place], bessy yo u please refill patient medication she is completely out and Dr. Bowen is on vacation. Thank you Crystal mented in this encounter Plan of Treatment +--------+ + + + + | Date | Type | Specialty | Care Team | Description | +--------+ + + + + | 06/04/ | Virtual | Gastroenterology | Natalie, | | | 2019 | Office | | [address] | | | | Visit | | [place] | | | | | | [place] [address] | | | | | | [phone] | | | | | | | | +--------+ + + + + | 07/09/ | Virtual | Gastroenterology | Osito Bowen | | 2019 | Office | | J, MD [address] | | | | Visit | | [place] [address] | | | | | | [phone] | | | | | | | | +--------+ + + + + + + +--------+ + + | Name | Type | Priori | Associated Diagnoses | Order Schedule | | | | ty | | | + + +--------+ + + | CBC no Differential | Lab | Routin | Ulcerative colitis | Expected: | | | | e | with other | 05/22/2020, Expires: | | | | | complication, | 05/22/2021 | | | | | unspecified location | | | | | | (HCC) | | + + +--------+ + + | Comprehensive | Lab | Routin | Ulcerative colitis | Expected: | | Metabolic Panel | | e | with other | 05/22/2020, Expires: | | | | | complication, | 08/22/2020 | | | | | unspecified location | | | | | | (HCC) | | + + +--------+ + + | C-Reactive Protein | Lab | Routin | Ulcerative colitis | Expected: | | | | e | with other | 11/22/2020, Expires: | | | | | complication, | 11/22/2021 | | | | | unspecified location | | | | | | (HCC) | | + + +--------+ + + | Sedimentation Rate | Lab | Routin | Ulcerative colitis | Expected: | | | | e | with other | 05/22/2020, Expires: | | | | | complication, | 05/22/2021 | | | | | unspecified location | | | | | | (HCC) | | + + +--------+ + + | Calprotectin, Stool | Lab | Routin | Ulcerative colitis | Ordered: 05/22/2020 | | | | e | with other | | | | | | complication, | | | | | | unspecified location | | | | | | ([facility]) | | + + +--------+ + + | Clostridium | Microbiolog | Routin | Ulcerative colitis | 1 Occurrences | | difficile A and B | y | e | with other | starting 05/22/2020 | | EIA | | | complication, | until 05/22/2021 | | | | | unspecified location | | | | | | ([facility]) | | + + +--------+ + + documented as of this encounter Visit Diagnoses + + | Diagnosis | + + | Ulcerative colitis with other complication, unspecified location ([facility]) - Primary | + + documented in this encounter"
--- OUTSIDE RECORDS SUMMARY | ~2020-06-03 | XMS | Encounter Summary ---
Demographics + + + | Address | [address] | | | [place] [address] | + + + | Home Phone | | + + + | Preferred Language | Unknown | + + + | Marital Status | Single | + + + | Shinto Affiliation | 1013 | + + + | Race | White | + + + | Ethnic Group | Not or | + + + Author + + + | Author | [facility] | | | and [place] | + + + | Organization | [facility] | | | and [place] | + + + | Address | Unknown | + + + | Phone | Unavailable | + + + Support + + + + + | Name | Relationship | Address | Phone | + + + + + | Marilyn Diallo | ECON | [place] | | | | | [address] | | + + + + + Care Team Providers + +------+ + | Care Assistant Head Cashier Name | Role | Phone | + +------+ + | Lilliana Wheeler | PCP | | | DIRECTOR GAME | | | + +------+ + Encounter Details +--------+ + + + + | Date | Type | Department | Care Team | Description | +--------+ + + + + | 12/07/ | Hospital | [facility] | [facility], | Ulcerative colitis | | 2014 | Encounter | [facility] | KYRA Singer [address] | ([facility]) | | | | [address] [place] | [address] | | | | | [place], [place] | [place], [place] | | | | | [address] | [address] | | | | | [phone] | | | +--------+ + + + [...] | | | | | | [place] [address] | | | | | | [phone] | | | | | | | | +--------+ + + + + | 07/09/ | Virtual | Gastroenterology | Osito Bowen | | | 2019 | Office | | MD Jonathan [address] | | | | Visit | | [place] [address] | | | | | | [phone] | | | | | | | [...] [address] | [place] | [phone] | | [facility] | | [address] | | | - LABORATORY | | | | + + + + + | [facility] | [address] | [place], [place] | | | [facility] | | [address], [facility] | | | [...] + | [facility] | [address] | [place] | [phone] | | [facility] | | [address] | | | - LABORATORY | | | | + + + + + | [facility] | [address] | [place], [place] | | | [facility] | | [address], [facility] | | | [...] + | [facility] | [address] | [place], [place] | [phone] | | [facility] | | [address] | | | - LABORATORY | | | | + + + + + | [facility] | [address] | [place], [place] | | | [facility] | | [address] [place] [address] | | | - LABORATORY | | | | + + + + + documented in this encounter Visit Diagnoses + + | Diagnosis | + + | Ulcerative colitis (HCC) Ulcerative colitis, unspecified | + + documented in this encounter"
--- OUTSIDE RECORDS SUMMARY | ~2020-06-03 | XMS | Encounter Summary ---
Demographics + + + | Address | [address] | | | [place] [address] | + + + | Home Phone [...] + + + | Author | [facility] | | | and [place] | + + + | Organization | [facility] | | | and [place] | + + + | Address | Unknown | + + + | Phone | Unavailable | + + + Support + + + + + | Name | Relationship | Address | Phone | + + + + + | Marilyn Diallo | ECON | [place], [place] | | | | | [address] | | + + + + + Care Team Providers + +------+ + | Care Food Service Aide Name | Role | Phone | [...] | SR | | | | | RUBI GONG [facility] | | | | | | [place], [place] | | | | | | [address] | | | | | | [phone] | | | +--------+ + + + [...] | | | | | | [place] [address] | | | | | | [phone] | | | | | | | | +--------+ + + + + | 07/09/ | Virtual | Gastroenterology | Osito Bowen | | | 2019 | Office | | MD Jonathan [address] | | | | Visit | | [place] [address] | | | | | | [phone] | | | | | | | [...]
--- OUTSIDE RECORDS SUMMARY | ~2020-06-03 | XMS | Encounter Summary ---
Demographics + + + | Address | [address] | | | [place] [address] | + + + | Home Phone [...] [place] | | | | | [address] | | + + + + + Care Team Providers + +------+ + | Care Hardware Designer Name | Role | Phone | [...] + + | 11/27/ | Telephone | [facility] | [facility], | [facility] | | 2014 | | GASTROENTEROLOGY | KYRA Singer [address] | | | | | [address] [place] | [address] | | | | | [address] [place], [place] | [place], [place] | | | | | [address] | [address] | | | | | [phone] | | | +--------+ + + + [...] | | | | | | [place] [address] | | | | | | [phone] | | | | | | | | +--------+ + + + + | 07/09/ | Virtual | Gastroenterology | Osito Bowen | | | 2019 | Office | | MD Jonathan [address] | | | | Visit | | [place] [address] | | | | | | [phone] | | | | | | | | +--------+ + + + + documented as of this encounter Visit Diagnoses Not on filedocumented in this encounter"
--- OUTSIDE RECORDS SUMMARY | ~2020-06-03 | XMS | Encounter Summary ---
Demographics + + + | Address | [address] | | | [place] [address] | + + + | Home Phone [...] [place] | | | | | [address] | | + + + + + Care Team Providers + +------+ + | Care Customer Support Analyst Name | Role | Phone | + +------+ + | Carlos Díaz NP | PCP | | + +------+ + Encounter Details +--------+ + + + + | Date | Type | Department | Care Team | Description | +--------+ + + + + | 03/27/ | Documentati | [facility] [place] | [facility], | | | 2014 | on | GASTROENTEROLOGY | KYRA Singer [address] | | | | | [address] [place] | [address] | | | | | [address] [place], [place] | [place], [place] | | | | | [address] | [address] | | | | | [phone] | | | +--------+ + + + [...] of this encounter Progress Notes Graciela Narayanan, Master of Quill - 03/27/2015 8:26 AM PDTCalled infusion services and ca nceled Ria's infusions per Lucrecia's note. Paris Rollins a phone message that this is being don e. docum ented in this encounter Plan of Treatment +--------+ + + + + | Date | Type | Specialty | Care Team | Description | +--------+ + + + + | 06/04/ | Virtual | Gastroenterology | Natalie, | | 2019 | Office | | [address] | | | | Visit | | [place] | | | | | | [place] [address] | | | | | | [phone] | | | | | | | | +--------+ + + + + | 07/09/ | Virtual | Gastroenterology | Osito Bowen | | | 2019 | Office | | MD Jonathan [address] | | | | Visit | | [place] [address] | | | | | | [phone] | | | | | | | | +--------+ + + + + documented as of this encounter Visit Diagnoses Not on filedocumented in this encounter"
--- OUTSIDE RECORDS SUMMARY | ~2020-06-03 | XMS | Encounter Summary ---
Demographics + + + | Address | [address] | | | [place] [address] | + + + | Home Phone [...] | [place] | | | | | [address] | | + + + + + Care Team Providers + +------+ + | Care Adobe Layer Helper Name | Role | Phone | [...] + + | 08/01/ | Office | [facility] | Edd Mckeon, | Ulcerative colitis, | | 2013 | Visit | GASTROENTEROLOGY | [address] | unspecified (Primary | | | | [address] | [address] [place], | Dx) | | | | [address] [place], [place] | [place] [address] | | | | | [address] | [phone] | | | | | [phone] | | | +--------+---------+ + + + [...] COLONOSCOPY performed by Aris Schmid MD at [facility] Family History Problem [...] PDT GASTROENTEROLOGY [address] [place] [address] FAX: [phone] OFFICE VISIT The patient has a significant [...] Mckeon M.D. SLIM / TRISTAN JOB #: [id number] signed by Edd Mckeon MD at 08/01/2014 [...] 2019 | Office | | [address] | | | | Visit | | [place] | | | | | | [place] [address] | | | | | | [phone] | | | | | | | | +--------+ + + + + | 07/09/ | Virtual | Gastroenterology | Osito Bowen | | | 2019 | Office | | MD Jonathan [address] | | | | Visit | | [place] [address] | | | | | | [phone] | | | | | | | [...]
--- OUTSIDE RECORDS SUMMARY | ~2020-06-03 | XMS | Encounter Summary ---
Demographics + + + | Address | [address] | | | [place] [address] | + + + | Home Phone | | + + + | Preferred Language | Unknown | + + + | Marital Status | Single | + + + | Jew Affiliation | 1013 | + + + | Race | White | + + + | Ethnic Group | Not or | + + + Author + + + | Author | [facility] | | | and [place] | + + + | Organization | [facility] | | | and [place] | + + + | Address | Unknown | + + + | Phone | Unavailable | + + + Support + + + + + | Name | Relationship | Address | Phone | + + + + + | Marilyn Diallo | ECON | [place] | | | | | [address] | | + + + + + Care Team Providers + +------+ + | Care Chemist Enzymes Name | Role | Phone | + +------+ + | Lilliana Wheeler | PCP | | | DIRECTOR STRATEGIC ACCOUNT MANAGEMENT | | | + +------+ + Reason [...] | Telephone | [facility] [place] | [facility], | Other (asacol) | | 2013 | | GASTROENTEROLOGY | KYRA Singer [address] | | | | | [address] [place] | [address] | | | | | [address] [place], [place] | [place], [place] | | | | | [address] | [address] | | | | | [phone] | | | +--------+ + + + [...] Telephone Encounter - Graciela Narayanan Master of Valencell - 11/29/2013 3:01 PM PSTThe medic ation [...] for medic ation. Pleases return call to [phone].Electronically signed by Valeriy Potter at 2:22 PM PSTTelephone Encounter - Graciela Narayanan Master of Arts - 11/28/2013 7 :52 AM PSTspoke to Aneesh at [facility] regarding Ria's PA for Asacol, he said that thi s is still in process. He also said [facility] is way behind on getting prior authorizations done. He could not give me any information on when it might be done. elephone Encounter - Liberty Narayanan Master of Arts - 11/22/2013 1:01 PM PSTRia called concerned about getting a prior au thorization for her asacol, after looking through her chart I see where this information has been sent to [facility] a couple of weeks ago. I called [facility] and talked to Kassandra Feliciano, she said [...] | | | | | | [place] [address] | | | | | | [phone] | | | | | | | | +--------+ + + + + | 07/09/ | Virtual | Gastroenterology | Osito Bowen | | | 2019 | Office | | MD Jonathan [address] | | | | Visit | | [place] [address] | | | | | | [phone] | | | | | | | | +--------+ + + + + documented as of this encounter Visit Diagnoses Not on filedocumented in this encounter"
--- OUTSIDE RECORDS SUMMARY | ~2020-06-03 | XMS | Encounter Summary ---
Demographics + + + | Address | [address] | | | [place] [address] | + + + | Home Phone [...] [place] | | | | | [address] | | + + + + + Care Team Providers + +------+ + | Care Public Affairs Officer Name | Role | Phone | + +------+ + | Carlos Díaz NP | PCP | | + +------+ + Encounter Details +--------+ + + + + | Date | Type | Department | Care Team | Description | +--------+ + + + + | 03/10/ | Hospital | [facility] | [facility], | Ulcerative colitis, | | 2016 | Encounter | MED CTR LABORATORY | KYRA Singer [address] | unspecified with | | | | [address] [place] | [address] | other complication | | | | [place], [place] | [place], [place] | ([facility]) | | | | [address] | [address] | | | | | [phone] | | | +--------+ + + + [...] [place], | | | | | | [place] [address] | | | | | | [phone] | | | | | | | | +--------+ + + + + | 07/09/ | Virtual | Gastroenterology | Osito Bowen | | | 2019 | Office | | MD Jonathan [address] | | | | Visit | | [place] [address] | | | | | | [phone] | | | | | | | [...] [address] | [place] | [phone] | | [facility] | | [address] | | | - LABORATORY | | [...] + | [facility] | [address] | [place] | [phone] | | [facility] | | [address] | | | - LABORATORY | | [...] [address] | [place] | [phone] | | [facility] | | [address] | | | - LABORATORY | | | | + + + + + documented in this encounter Visit Diagnoses + + | Diagnosis | + + | Ulcerative colitis, unspecified with other complication (HCC) | + + documented in this encounter"
--- OUTSIDE RECORDS SUMMARY | ~2020-06-03 | XMS | Encounter Summary ---
Demographics + + + | Address | [address] | | | [place] [address] | + + + | Home Phone | | + + + | Preferred Language | Unknown | + + + | Marital Status | Single | + + + | Methodist Affiliation | 1013 | + + + [...] [place] | | | | | [address] | | + + + + + Care Team Providers + +------+ + | Care Game Breeding Farm Manager Name | Role | Phone | + +------+ + | Carlos Díaz NP | PCP | | + +------+ + Reason for Visit +---------+--------+ + | Reason | Onset | Comments | | | Date | | +---------+--------+ + | Results | 03/10/ | anemia | | | 2015 | | +---------+--------+ + Encounter Details +--------+ + + + + | Date | Type | Department | Care Team | Description | +--------+ + + + + | 03/10/ | Telephone | [facility] | [facility], | Results ([facility]) | | 2015 | | GASTROENTEROLOGY | KYRA Singer [address] | | | | | [address] [place] | [address] | | | | | [address] [place], [place] | [place], [place] | | | | | [address] | [address] | | | | | [phone] | | | +--------+ + + + [...] Miscellaneous Notes Telephone Encounter - Graciela Narayanan Pipe Coverer And Insulator - 03/10/2016 4:58 PM PDTSpoke to patient, gave her Brie's message. Patient has an appointment with PCP this Wednesday. Jamil rivero axed to Carlos Díaz NPElectronically signed by Graciela Narayanan Pipe Coverer And Insulator at 4:59 PM PDTTelephone Encounter - Graciela Narayanan Pipe Coverer And Insulator - 03/10/2016 4:57 PM PDT----- Message from KYRA Beatty sent at 03/10/2016 15:56 PDT ----- Her labs show significant anemia without evidence of inflammation. Please forward labs to yaana parisi pcp. 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 She sh ould start iron supplementation. Thank you documented in this encounter Plan of Treatment +--------+ + + + + | Date | Type | Specialty | Care Team | Description | +--------+ + + + + | 06/04/ | Virtual | Gastroenterology | Natalie, | | 2019 | Office | | [address] | | | | Visit | | [place] | | | | | | [place] [address] | | | | | | [phone] | | | | | | | | +--------+ + + + + | 07/09/ | Virtual | Gastroenterology | Osito Bowen | | 2019 | Office | | MD Jonathan [address] | | | | Visit | | [place] [address] | | | | | | [phone] | | | | | | | | +--------+ + + + + documented as of this encounter Visit Diagnoses Not on filedocumented in this encounter"
--- OUTSIDE RECORDS SUMMARY | ~2020-06-03 | XMS | Encounter Summary ---
Demographics + + + | Address | [address] | | | [place] [address] | + + + | Home Phone | | + + + | Preferred Language | Unknown | + + + | Marital Status | Single | + + + | Sikh Affiliation | 1013 | + + + [...] [place] | | | | | [address] | | + + + + + Care Team Providers + +------+ + | Care Marketing Project Coordinator Name | Role | Phone | [...] + + | 08/09/ | Telephone | [facility] | Aris Schmid MD | Appointment | | 2014 | | GASTROENTEROLOGY | [address] | | | | | [address] [facility] | [place], [place] | | | | | [address] [place], [place] | [address] | | | | | [address] | [phone] | | | | | [phone] | | | +--------+ + + + [...] Miscellaneous Notes Telephone Encounter - Adriana Wallace Agustin - 08/09/2015 8:25 AM [place] [...] | | | | | | [place] [address] | | | | | | [phone] | | | | | | | | +--------+ + + + + | 07/09/ | Virtual | Gastroenterology | Osito Bowen | | 2019 | Office | | MD Jonathan [address] | | | | Visit | | [place] [address] | | | | | | [phone] | | | | | | | | +--------+ + + + + documented as of this encounter Visit Diagnoses Not on filedocumented in this encounter"
--- OUTSIDE RECORDS SUMMARY | ~2020-06-03 | XMS | Encounter Summary ---
Demographics + + + | Address | [address] | | | [place] [address] | + + + | Home Phone [...] | [place] | | | | | [address] | | + + + + + Care Team Providers + +------+ + | Care New Car Make Ready Worker Name | Role | Phone | [...] + + | 01/09/ | Refill | [facility] | Osito Bowen | Medication Refill | | 2019 | | GASTROENTEROLOGY | MD Jonathan [address] | | | | | [address] | [place] [address] | | | | | [place], [place] | [phone] | | | | | [address] | | | | | | [phone] | | | +--------+--------+ + + + [...] | | | | | | [place] [address] | | | | | | [phone] | | | | | | | | +--------+ + + + + | 07/09/ | Virtual | Gastroenterology | Osito Bowen | | 2019 | Office | | MD Jonathan [address] | | | | Visit | | [place] [address] | | | | | | [phone] | | | | | | | | +--------+ + + + + documented as of this encounter Visit Diagnoses Not on filedocumented in this encounter"
--- OUTSIDE RECORDS SUMMARY | ~2020-06-03 | XMS | Encounter Summary ---
Demographics + + + | Address | [address] | | | [place] [address] | + + + | Home Phone [...] | [place] | | | | | [address] | | + + + + + Care Team Providers + +------+ + | Care Automotive Tire Tester Name | Role | Phone | + [...] + + | 01/08/ | Telephone | [facility] | [facility], | Medication | | 2015 | | GASTROENTEROLOGY | KYRA Singer [address] | Management | | | | [address] [place] | [address] | | | | | [address] [place], [place] | [place], [place] | | | | | [address] | [address] | | | | | [phone] | | | +--------+ + + + [...] Miscellaneous Notes Telephone Encounter - Graciela Narayanan Family Independence Case Manager - 01/13/2016 12:18 PM PDTNoted. ele phone Encounter - Rocio Woods - 01/09/2016 12:09 PM PDTQueenie from [employer] called in regards to patients medications. Stated that they have attempted multiple times to contact the patient with no success and will be putting her medications on hold until they can get i n touch with the patient to set up a date for delivery. If needed any farm loan representative can be reached at [phone]. d ocumented in this encounter Plan of Treatment +--------+ + + + + | Date | Type | Specialty | Care Team | Description | +--------+ + + + + | 06/04/ | Virtual | Gastroenterology | Natalie, | | | 2019 | Office | | [address] | | | | Visit | | [place] | | | | | | [place] [address] | | | | | | [phone] | | | | | | | | +--------+ + + + + | 07/09/ | Virtual | Gastroenterology | Osito Bowen | | 2019 | Office | | MD Jonathan [address] | | | | Visit | | [place] [address] | | | | | | [phone] | | | | | | | | +--------+ + + + + documented as of this encounter Visit Diagnoses Not on filedocumented in this encounter"
--- OUTSIDE RECORDS SUMMARY | ~2020-06-03 | XMS | Encounter Summary ---
Demographics + + + | Address | [address] | | | [place] [address] | + + + | Home Phone [...] [place] | | | | | [address] | | + + + + + Care Team Providers + +------+ + | Care Duralumin Metalworker Name | Role | Phone | + [...] [address] | | | | | [address] [place], [place] | [place], [place] | | | | | [address] | [address] | | | | | [phone] | | | +--------+ + + + [...] Telephone Encounter - Graciela Narayanan Master of [email or web address] - 10/23/2014 9:45 AM PSTLeft mess age for patient, Danielle does not want to order anything until she sees patient. Asked that kate simms keep apt. Call with any questions. elephone Encounter - Graciela Narayanan Master of [email or web address].com - 0 10/22/2014 3:08 PM PSTSend these orders to [facility] [place]. elephone Encounter - Graham Narayanan Master of [...] 2019 | Office | | [address] | | | | Visit | | [place] | | | | | | [place] [address] | | | | | | [phone] | | | | | | | | +--------+ + + + + | 07/09/ | Virtual | Gastroenterology | Osito Bowen | | 2019 | Office | | MD Yenifer Castillo | | | | Visit | | [place] [address] | | | | | | [phone] | | | | | | | | +--------+ + + + + documented as of this encounter Visit Diagnoses Not on filedocumented in this encounter"
--- OUTSIDE RECORDS SUMMARY | ~2020-06-03 | XMS | Encounter Summary ---
Demographics + + + | Address | [address] | | | [place] [address] | + + + | Home Phone [...] [place] | | | | | [address] | | + + + + + Care Team Providers + +------+ + | Care Doughnut Machine Operator Name | Role | Phone | + +------+ + | Carlos Díaz NP | PCP | | + +------+ + Encounter Details +--------+ + + + + | Date | Type | Department | Care Team | Description | +--------+ + + + + | 07/15/ | Abstract | [facility] [place] | [facility], | | | 2013 | | GASTROENTEROLOGY | KYRA Singer [address] | | | | | [address] [place] | [address] | | | | | [address] [place], [place] | [place], [place] | | | | | [address] | [address] | | | | | [phone] | | | +--------+ + + + [...] 2019 | Office | | [address] | | | | Visit | | [place], | | | | | | [place] [address] | | | | | | [phone] | | | | | | | | +--------+ + + + + | 07/09/ | Virtual | Gastroenterology | Osito Bowen | | | 2020 | Office | | MD Jonathan [address] | | | | Visit | | [place] [address] | | | | | | [phone] | | | | | | | | +--------+ + + + + documented as of this encounter Visit Diagnoses Not on filedocumented in this encounter"
--- OUTSIDE RECORDS SUMMARY | ~2020-06-03 | XMS | Encounter Summary ---
Demographics + + + | Address | [address] | | | [place] [address] | + + + | Home Phone [...] Author + + + | Author | [facility] | | | and [place] | + + + | Organization | [facility] | | | and [place] | + + + | Address | Unknown | + + + | Phone | Unavailable | + + + Support + + + + + | Name | Relationship | Address | Phone | + + + + + | Marilyn Diallo | ECON | [place] | | | | | [address] | | + + + + + Care Team Providers + +------+ + | Care Manufacturing Industrial Engineer Name | Role | Phone | [...] + + | 06/01/ | Refill | [facility] | Cruz Gonzalez | Medication Refill | | 2019 | | GASTROENTEROLOGY | MD Timothy [address] | | | | | [address] | [address] [place], [place] | | | | | [place], [place] | [address] | | | | | [address] | | | | | | [phone] | | | +--------+--------+ + + + [...] Miscellaneous Notes Telephone Encounter - Cliff Bojorquez Java Technical Architect - 06/01/2019 3:37 PM PDTPatient aware Rx sent. elep jagruti Encounter - Cliff Bojorquez Java Technical Architect - 06/01/2019 1:49 PM PDTPatient called to [...] 2019 | Office | | [address] | | | | Visit | | [place], | | | | | | [place] [address] | | | | | | [phone] | | | | | | | | +--------+ + + + + | 07/09/ | Virtual | Gastroenterology | Osito Bowen | | | 2020 | Office | | MD Jonathan [address] | | | | Visit | | [place] [address] | | | | | | [phone] | | | | | | | | +--------+ + + + + documented as of this encounter Visit Diagnoses Not on filedocumented in this encounter"
--- OUTSIDE RECORDS SUMMARY | ~2020-06-03 | XMS | Encounter Summary ---
Demographics + + + | Address | [address] | | | [place] [address] | + + + | Home Phone [...] + + | Author | [facility] | | | and [place] | + + + | Organization | [facility] | | | and [place] | + + + | Address | Unknown | + + + | Phone | Unavailable | + + + Support + + + + + | Name | Relationship | Address | Phone | + + + + + | Marilyn Diallo | ECON | [place] | | | | | [address] | | + + + + + Care Team Providers + +------+ + | Care Telecommunications Field Technician Name | Role | Phone | + +------+ + | Carlos Díaz NP | PCP | | + +------+ + Encounter Details +--------+ + + + + | Date | Type | Department | Care Team | Description | +--------+ + + + + | 05/07/ | Orders Only | [facility] | [facility], | | | 2013 | | MED CTR OP INFUSION | KYRA Singer [address] | | | | | [address] | [address] | | | | | [place], [place] | [place], [place] | | | | | [address] | [address] | | | | | [phone] | | | +--------+ + + + [...] | | | | | | [place] [address] | | | | | | [phone] | | | | | | | | +--------+ + + + + | 07/09/ | Virtual | Gastroenterology | Osito Bowen | | | 2019 | Office | | MD Jonathan [address] | | | | Visit | | [place] [address] | | | | | | [phone] | | | | | | | | +--------+ + + + + documented as of this encounter Visit Diagnoses Not on filedocumented in this encounter"
--- OUTSIDE RECORDS SUMMARY | ~2020-06-03 | XMS | Encounter Summary ---
Demographics + + + | Address | [address] | | | [place] [address] | + + + | Home Phone | | + + + | Preferred Language | Unknown | + + + | Marital Status | Single | + + + | Synagogue Affiliation | 1013 | + + + [...] | [place] | | | | | [address] | | + + + + + Care Team Providers + +------+ + | Care Fiberglass Quality Technician Name | Role | Phone | [...] | | | / | colitis, | BUSINESS INSURANCE AGENT [address] | PATIENT SITTER [address] | | | | Gastroenterol | unspecified | [facility] | [address] | | | | ogy | Medication | [place]AN [place], | [address] | | | | | Reasons/moda | [address] | [place], | | | | | /arjun | [place], | [place] [address] | | | | | Procedures | [place] [address] | Phone: | | | | | OFFICE VISIT | Phone: | [phone] | | | | | REGULAR | [phone] | Fax: | | | | | | Fax: | [phone] | | | | | | [phone] | | +--------+--------+ + + + + Encounter Details +--------+---------+ + + + | Date | Type | Department | Care Team | Description | +--------+---------+ + + + | 03/11/ | Office | [facility] | [facility], | Ulcerative colitis, | | 2015 | Visit | GASTROENTEROLOGY | KYRA [address] | other complication | | | | [address] | [address] | ([facility]) (Primary Dx) | | | | [address] [place], [place] | [place], [place] | | | | | [address] | [address] | | | | | [phone] | | | +--------+---------+ + + + [...] 10:09 PM PDTPlease see Clinic note. Nurse marlo ogden Patient started on . Electronically signed by KYRA Beatty at 10:11 PM PDTdocumented in this encounter Plan [...] | | | | | | [place] [address] | | | | | | [phone] | | | | | | | | +--------+ + + + + | 07/09/ | Virtual | Gastroenterology | Osito Bowen | | 2019 | Office | | MD Jonathan [address] | | | | Visit | | [place] [address] | | | | | | [phone] | | | | | | | | +--------+ + + + + documented as of this encounter Visit Diagnoses + + | Diagnosis | + + | Ulcerative colitis, other complication - Primary | + + documented in this encounter"
--- OUTSIDE RECORDS SUMMARY | ~2020-06-03 | XMS | Encounter Summary ---
Demographics + + + | Address | [address] | | | [place] [address] | + + + | Home Phone [...] | [place] | | | | | [address] | | + + + + + Care Team Providers + +------+ + | Care Reinforcing Steel Erector Name | Role | Phone | + [...] | | colitis | Lucre[place], | [address] | | | | | Procedures | REDUCTION PLANT SUPERVISOR [address] | [place], | | | | | [place] | [address] | [place] [address] | | | | | INFUSION, | [address] | Phone: | | | | | THERAP/PROPH | [place], | [phone] | | | | | /[place] | [place] [address] | Fax: | | | | | ITIAL,1ST | Phone: | [phone] | | | | | [place] | [phone] | | | | | | INFLIXIMAB | Fax: | | | | | | INJECTION, | [phone] | | | | | | 10 MG WSM | | | | | | | OP INF | | | | | | | REMICADE | | | +--------+--------+ + + + + Encounter Details +--------+ + + + + | Date | Type | Department | Care Team | Description | +--------+ + + + + | 10/23/ | Hospital | [facility] | [facility], | Ulcerative colitis, | | 2015 | Encounter | MED CTR OP INFUSION | MAGY [address] | with rectal bleeding | | | | [address] | [address] | ([facility]) (Primary Dx) | | | | [place], [place] | [place], [place] | | | | | [address] | [address] | | | | | [phone] | | | +--------+ + + + [...] encounter Miscellaneous Notes Miscellaneous - [facility] - 10/26/2014 12:00 AM PST documented in this encounter Plan of Treatment +--------+ + + + + | Date | Type | Specialty | Care Team | Description | +--------+ + + + + | 06/04/ | Virtual | Gastroenterology | Natalie, | | | 2019 | Office | | [address] | | | | Visit | | [place] | | | | | | [place] [address] | | | | | | [phone] | | | | | | | | +--------+ + + + + | 07/09/ | Virtual | Gastroenterology | Osito Bowen | | 2019 | Office | | MD Jonathan [address] | | | | Visit | | [place] [address] | | | | | | [phone] | | | | | | | [...]
--- OUTSIDE RECORDS SUMMARY | ~2020-06-03 | XMS | Encounter Summary ---
Demographics + + + | Address | [address] | | | [place] [address] | + + + | Home Phone [...] + + | Author | [facility] | | | and [place] | + + + | Organization | [facility] | | | and [place] | + + + | Address | Unknown | + + + | Phone | Unavailable | + + + Support + + + + + | Name | Relationship | Address | Phone | + + + + + | Marilyn Diallo | ECON | [place] | | | | | [address] | | + + + + + Care Team Providers + +------+ + | Care Hospital Aides And Assistants Teacher Name | Role | Phone | [...] | | | | | | (FORMERLY [facility]) | | | | | | | Procedures | | | | | | | COLONOSCOPY | | | | | | | COLONOSCOPY | | | +--------+--------+ + + + + Encounter Details +--------+---------+ + + + | Date | Type | Department | Care Team | Description | +--------+---------+ + + + | 12/25/ | Surgery | [facility] | Aris Schmid MD | COLONOSCOPY | | 2013 | | MED CTR MP INTRA OP | [address] | | | | | [address] | [place] | | | | | [place] | [address] | | | | | [address] | [phone] | | | | | [phone] | | | +--------+---------+ + + + [...] Aris Schmid MD at 12/25/2013 7:58 AM PDTCambridge HospitalLucrecia, INSTRUCTIONAL SUPPORT SPECIALIST - 11/12 11:20 AM PST Ria Hastings [...] of control. Recommended discussion with PCP or SET UP / OPERATOR. Will follow up with results. Patient [...] AM PDTHistory of [facility].[place]., Diarrhea NBASE SCAN [facility] - 12/25/2013 12:00 AM PDTAssociated Order(s): PATHOLOGY - EXTERNAL SCAN 9:5 5 AM [facility] - 12/25/2013 12:00 AM PDTAssociated Order(s): PATHOLOGY - EXTERNAL SCAN NZABRIAN SCAN [facility] - 12/25 12:00 AM PDTAssociated Order(s): COLONOSCOPYElectronically signed by Jassi Saldaña at 0 12/25/2013 11:18 AM PDTdocumented in this encounter Miscellaneous Notes Plan of Care - ONBASE SCAN [facility] - 01/03/2014 12:00 AM PDT iscellaneous - ONBASE SCAN [facility] - 01/01/2014 12:00 AM PDTElec tronically signed by Jassi Saldaña at 01/01/2014 7:46 AM PDTMiscellaneous - ONBASE SCAN [facility] - 12/29/2013 12:00 AM PDT l an of Care - ONBASE SCAN [facility] - 12/26/2013 12:00 AM PDT lan of Care - ONBASE SCAN [facility] - 12/26/2013 12:00 AM PDTElectron ically signed by Jassi Saldaña at 01/01/2014 9:50 AM PDTMiscellaneous - ONBASE SCAN TXMT - 0 12/26/2013 12:00 AM PDT docume [...] | | | | | | [place] [address] | | | | | | [phone] | | | | | | | | +--------+ + + + + | 07/09/ | Virtual | Gastroenterology | Osito Bowen | | 2019 | Office | | MD Jonathan [address] | | | | Visit | | [place] [address] | | | | | | [phone] | | | | | | | [...] 12/25/2013 | PROVATION | | 10:28 AMMRN: [id number] #: [id number] of : | | | 1980Admit Type: AmbulatoryAge: 33Room: [facility] 02Gender: FemaleNote | | | Status: [...] by the physician, the nurse and the on call pharmacy technician in the | | | pre-procedure [...] On: 12/25/2013 | | | 10:[address] [facility], [address] [place] [address], | | | [place] [address] | | | - Discharge patient to [...] On: 12/25/2013 10:28 AM | | | [facility], [address] [place] [address], [place], [place] | | | [address] | | + + -+ + + [...]
--- OUTSIDE RECORDS SUMMARY | ~2020-06-03 | XMS | Encounter Summary ---
Demographics + + + | Address | [address] | | | [place] [address] | + + + | Home Phone [...] [place] | | | | | [address] | | + + + + + Care Team Providers + +------+ + | Care Parachute Folder Name | Role | Phone | + [...] | | | | with rectal | EMERGENCY VEHICLE OPERATIONS INSTRUCTOR [address] | [place], | | | | | bleeding | [address] | [place] [address] | | | | | Diarrhea | [address] | Phone: | | | | | Procedures | [place], | [phone] | | | | | [place] | [place] [address] | Fax: | | | | | COLONOSCOPY | Phone: | [phone] | | | | | FLX DX | [phone] | | | | | | W/COLLJ SPEC | Fax: | | | | | | WHEN PFRMD | [phone] | | | | | | [place] | | | | | | | COLONOSCOPY | | | | | | | W/BIOPSY | | | | | | | SINGLE/MULTI | | | | | | | PLE [place] | | | | | | | [...] | | | / | colitis, | COUNTY DIRECTOR WELF[address] | EMERGENCY VEHICLE OPERATIONS INSTRUCTOR [address] | | | | Gastroenterol | unspecified | [facility] | [address] | | | | ogy | followup | [address], | [address] | | | | | ulcerative | [address] | [place], | | | | | colitis/pt/m | [place], | [place] [address] | | | | | lilia/arjun | [place] [address] | Phone: | | | | | Procedures | Phone: | [phone] | | | | | OFFICE | [phone] | Fax: | | | | | VISIT | Fax: | [phone] | | | | | REGULAR | [phone] | | +--------+--------+ + + + + Encounter Details +--------+---------+ + + + | Date | Type | Department | Care Team | Description | +--------+---------+ + + + | 10/30/ | Office | [facility] | [facility], | Ulcerative colitis, | | 2014 | Visit | GASTROENTEROLOGY | KYRA Singer [address] | with rectal bleeding | | | | [address] [place] | [address] | ([facility]) (Primary Dx); | | | | [address] [place], [place] | [place], [place] | Diarrhea | | | | [address] | [id number] | | | | | [phone] | | | +--------+---------+ + + + [...] Laterality: N/A; Surgeon: Aris Schmid MD; Location: [facility] Family History Problem Relation Age of Onset [...] 2019 | Office | | [address] | | | | Visit | | [place], | | | | | | [place] [address] | | | | | | [phone] | | | | | | | | +--------+ + + + + | 07/09/ | Virtual | Gastroenterology | Osito Bowen | | | 2019 | Office | | MD Jonathan [address] | | | | Visit | | [place] [address] | | | | | | [phone] | | | | | | | [...]
--- OUTSIDE RECORDS SUMMARY | ~2020-06-03 | XMS | Encounter Summary ---
Demographics + + + | Address | [address] | | | [place] [address] | + + + | Home Phone [...] [place] | | | | | [address] | | + + + + + Care Team Providers + +------+ + | Care Biological Aide Name | Role | Phone | [...] + + | 07/24/ | Telephone | [facility] | [facility], | Other | | 2012 | | GASTROENTEROLOGY | KYRA Singer [address] | | | | | [address] [place] | [address] | | | | | [address] [place], [place] | [place], [place] | | | | | [address] | [address] | | | | | [phone] | | | +--------+ + + + [...] to continue to taper off, she verbali zed understanding. eleph one Encounter - Elana Rodriguez RN - 07/24/2013 1:33 PM PDTCalled and left message for ria to call back to our office. elephone Encounter - Debbie Pinon - 07/24/2013 11:45 AM PDTPatient called in to return gela's call. Please try her again. elephone Encounter - Graciela Narayanan CMA - 07/24/2013 10:45 AM PDTLeft message f or patient to return call. 10:4 6 AM PDTTelephone Encounter - Debbie Pinon - 07/24/2013 9:27 AM PDTPatient called in albert crowell to speak with Gela about a refill request for predisone, please [...] | | | | | | [place] [address] | | | | | | [phone] | | | | | | | | +--------+ + + + + | 07/09/ | Virtual | Gastroenterology | Osito Bowen | | | 2019 | Office | | MD Jonathan [address] | | | | Visit | | [place] [address] | | | | | | [phone] | | | | | | | | +--------+ + + + + documented as of this encounter Visit Diagnoses Not on filedocumented in this encounter"
--- OUTSIDE RECORDS SUMMARY | ~2020-06-03 | XMS | Encounter Summary ---
Demographics + + + | Address | [address] | | | [place] [address] | + + + | Home Phone [...] [place] | | | | | [address] | | + + + + + Care Team Providers + +------+ + | Care C 40A Crew Chief Name | Role | Phone | + [...] Specialty | Gastroenterol | Diagnoses | | [place], | | | Services | ogy | Ulcerative | [place], | [place] | | | Required | | colitis with | [place], | MD Bryon | | | | | | GLOBAL CONSUMER SECTOR VICE PRESIDENT [address] | [address] | | | | | complication | [address] | [address]VE | | | | | , | [address] | [place], [place] | | | | | unspecified | [place], | [address] | | | | | location | [place] [address] | Phone: | | | | | ([facility]) | Phone: | [phone] | | | | | Anemia, | [phone] | Fax: | | | | | unspecified | Fax: | [phone] | | | | | | [phone] | | +--------+ + + + + + Encounter Details +--------+ + + + + | Date | Type | Department | Care Team | Description | +--------+ + + + + | 03/11/ | Orders Only | [facility] [place] | [place], | Ulcerative colitis | | 2016 | | GASTROENTEROLOGY | KYRA Singer [address] | with complication, | | | | [address] | [address] | unspecified location | | | | [address] [place], [place] | [place], [place] | ([facility]) (Primary Dx); | | | | [address] | [address] | Anemia, unspecified | | | | [phone] | | | +--------+ + + + [...] this encounter Progress Fatuma Ross RN - 03/11/2016 8:54 AM PDTEntered referral to [facility] for UC and anemia evaluation. [facility] does not accept [employer]'s insurance--referral there closed. Spoke with Brabie at [facility], and she said to fax all records/demos to Referral depart ment at fax # [phone] once it has been authorized. Gela faxed labs and office note to PCP per Danielle's request. documented in this encounter Plan of Treatment +--------+ + + + + | Date | Type | Specialty | Care Team | Description | +--------+ + + + + | 06/04/ | Virtual | Gastroenterology | Natalie, | | | 2019 | Office | | [address] | | | | Visit | | [place] | | | | | | [place] [address] | | | | | | [phone] | | | | | | | | +--------+ + + + + | 07/09/ | Virtual | Gastroenterology | Osito Bowen | | | 2019 | Office | | MD Yenifer Castillo | | | | Visit | | [place] [address] | | | | | | [phone] | | | | | | | | +--------+ + + + + + + +--------+ + + | Name | Type | Priori | Associated Diagnoses | Order Schedule | | | | ty | | | + + +--------+ + + | * [facility] BISHOP | Outpatient | Routin | Ulcerative Colitis | Ordered: 03/11/2016 | | Gastroenterology - | Referral | e | With Complication, | | | AMB Referral | | | Unspecified Location | | | | | | ([facility]) Anemia, | | | | | | unspecified | | + + +--------+ + + documented as of this encounter Visit Diagnoses + + | Diagnosis | + + | Ulcerative colitis with complication, unspecified location ([facility]) - Primary | + + | Anemia, unspecified | + + documented in this encounter"
--- OUTSIDE RECORDS SUMMARY | ~2020-06-03 | XMS | Encounter Summary ---
Demographics + + + | Address | [address] | | | [place] [address] | + + + | Home Phone [...] | [place] | | | | | [address] | | + + + + + Care Team Providers + +------+ + | Care Sander Portable Machine Name | Role | Phone | + +------+ + | Carlos Díaz NP | PCP | | + +------+ + Reason for Visit + +--------+ + | Reason | Onset | Comments | | | Date | | + +--------+ + | Medication Orders | 04/30/ | | | | 2015 | | + +--------+ + Encounter Details +--------+ + + + + | Date | Type | Department | Care Team | Description | +--------+ + + + + | 04/30/ | Telephone | [facility] | [facility], | Medication Orders | | 2015 | | GASTROENTEROLOGY | KYRA Singer [address] | | | | | [address] | [facility] [address] | | | | | [address] [place], [place] | [place] | | | | | [address] | [address] | | | | | [phone] | | | +--------+ + + + [...] Telephone Encounter - Fatuma Mclaughlin RN - 05/01/2016 1:53 PM PDTNoted. Electronically si gned by Fatuma Mclaughlin RN at 05/01/2016 1:54 PM PDTTelephone Encounter - Lulu Rodriguez - 05/01/2016 1:38 PM PDTPatient wanted to let Fatuma know that she got in touch with her ph nabor, she does not need a call back. Electronically signed by Lulu Nestor Michael at 6 1:39 PM PDTTelephone Encounter - Fatuma Mclaughlin RN - 05/01/2016 8:54 AM PDTLM x 2. See below elephone Encoun ter - Fatuma Mclaughlin RN - 04/30/2016 3:53 PM PDTTried calling patient and connection was very poor, I told her I would call her right back. I did and got her VM. LM stating that pha rmacy unable to reach her and to please contact them bear; phone number provided. Asked that she also call us to let us know she got in touch with them. elephone Encounter - Rocio Woods - 04/30/2016 3: [facility], stating that they cannot ge t a hold of the patient so the order for the patient is going to be put on hold. Prior auth will be expiring . If needed they can be reached at [phone].Electronically si gned by Rocio Woods at 04/30/2016 3:45 PM PDTdocumented in this encounter Plan of [...] | | | | | | [place] [address] | | | | | | [phone] | | | | | | | | +--------+ + + + + | 07/09/ | Virtual | Gastroenterology | Osito Bowen | | | 2019 | Office | | MD Jonathan [address] | | | | Visit | | [place] [address] | | | | | | [phone] | | | | | | | | +--------+ + + + + documented as of this encounter Visit Diagnoses Not on filedocumented in this encounter"
--- OUTSIDE RECORDS SUMMARY | ~2020-06-03 | XMS | Clinical Summary ---
Demographics + + + | Address | [address] | | | [place] [address] | + + + | Home Phone | | + + + | Preferred Language | Unknown | + + + | Marital Status | Unknown | + + + | Rastafarian Affiliation | Unknown | + + + | Race | Unknown | + + + | Ethnic Group | Unknown | + + + Author + + + | Author | [facility] | + + + | Organization | [facility] | + + + | Address | Unknown | + + + | Phone | Unavailable | + + + Care Team Providers + +------+ + | Care Debug Technician Name | Role | Phone | + +------+ + PCP | Unavailable | + +------+ + Source Comments ION is fully live on both [facility]ulatory and [facility] InPatient.[facility] Allergies Not on File Medications Not on [...] + + + Last Filed Vital Signs Not on file Plan of Treatment + + +-------+ + | Health Maintenance | Due Date | Last | Comments | | | | Done | | + + +-------+ + | Influenza (Flu) | | | | | vaccination (#1) | 9 | | | + + +-------+ + | Pneumococcal | Aged Out | | No longer eligible based on patient's age | | vaccination | | | to complete this topic | + + +-------+ + Results Not on filefrom Last 3 Months"
--- OUTSIDE RECORDS SUMMARY | ~2020-06-03 | XMS | Encounter Summary ---
Demographics + + + | Address | [address] | | | [place] [address] | + + + | Home Phone | | + + + | Preferred Language | Unknown | + + + | Marital Status | Single | + + + | Anglican Affiliation | 1013 | + + + [...] [place] | | | | | [address] | | + + + + + Care Team Providers + +------+ + | Care Roll Tension Tester Name | Role | Phone | [...] + + | 11/27/ | Hospital | [facility] | Aris Schmid MD | Diarrhea (Primary | | 2015 | Encounter | MED CTR OR PRE OP | [address] | Dx); Inflammatory | | | | [address] | [place], [place] | bowel disease | | | | [place] [address] | [address] | | | | | [phone] | [phone] | | | | | | | [...] the physician who did your procedure at [phone] if you have any questions or experience any of the following: ? Increasing abdominal pain, nausea, or vomiting. ? Chills and fever over 101F. ? New abdominal swelling or bloating. ? Signs of rectal bleeding (black or red stool. If you cannot get a hold of your physician, then call the [facility] [phone] . If necessary, report to the Emergency Department at [facility]. Quit smoking: If you smoke or have [...] Schmid MD at 11/27/2014 11:10 AM PSTRosamariaLucrecia, FIELD SERVICE POULTRY TECHNICIAN - 10/30 10:33 AM PST Ria Hastings [...] Laterality: N/A; Surgeon: Aris Schmid MD; Location: [facility] Family History Problem Relation Age of Onset [...] | | | | | | [place] [address] | | | | | | [phone] | | | | | | | | +--------+ + + + + | 07/09/ | Virtual | Gastroenterology | Osito Bowen | | | 2020 | Office | | MD Jonathan [address] | | | | Visit | | [place] [address] | | | | | | [phone] | | | | | | | [...] 11/27/2014 | PROVATION | | 11:01 AMMRN: [id number] #: [id number] of : | | | 1980Admit Type: AmbulatoryAge: 34Room: [facility] 02Gender: FemaleNote | | | Status: [...] the nurse | | | and the copy technician in the pre-procedure area in the [...] AMScope | | | Out: 11:32:52 AM [facility], [address] | | | [place] [address] | | | - Continue present medications. [...] |Scope Out: 11:32:52 AM | | | [facility], [address] [place], [place] | | | [address] | | + + -+ + +---------+ + + | Performing | Address | City/State/[place] Service Unitcode | Phone Number | | Organization | [...] + + | JASBIRNCE | [address] [facility] | [place], [place] | [phone] | | [facility] | | [address] | | | LABORATORY | | | [...]
--- OUTSIDE RECORDS SUMMARY | ~2020-06-03 | XMS | Encounter Summary ---
Demographics + + + | Address | [address] | | | [place] [address] | + + + | Home Phone [...] | [place] | | | | | [address] | | + + + + + Care Team Providers + +------+ + | Care Microbiology Analyst Name | Role | Phone | + +------+ + | Carlos Díaz NP | PCP | | + +------+ + Reason for Visit + +--------+ + | Reason | Onset | Comments | | | Date | | + +--------+ + | Appointment | 08/02/ | schedule follow up appt | | | 2013 | | + +--------+ + Encounter Details +--------+ + + + + | Date | Type | Department | Care Team | Description | +--------+ + + + + | 08/02/ | [facility] | [facility] | Edd Hurst, | Appointment | | 2013 | | GASTROENTEROLOGY | [address] | (schedule follow up | | | | [address] | [address] [place], | appt) | | | | [address] [place], [place] | [place] [address] | | | | | [address] | [phone] | | | | | [phone] | | | +--------+ + + + [...] Telephone Encounter - Elana Rodriguez RN - 08/02/2014 10:38 AM PDTCalled patient and advised that is recommending bloodwork next week since restarting the imuran patient agree d, she would like order to be [facility] [place], orders sent, also patient to lilly a follow up appt the week of aug.13, appt made for aug.14 at 0930, she verbalized understa nding. documented in this encounter Plan of Treatment +--------+ + + + + | Date | Type | Specialty | Care Team | Description | +--------+ + + + + | 06/04/ | Virtual | Gastroenterology | Natalie, | | 2019 | Office | | [address] | | | | Visit | | [place] | | | | | | [place] [address] | | | | | | [phone] | | | | | | | | +--------+ + + + + | 07/09/ | Virtual | Gastroenterology | Osito Bowen | | 2019 | Office | | MD Jonathan [address] | | | | Visit | | [place] [address] | | | | | | [phone] | | | | | | | | +--------+ + + + + documented as of this encounter Visit Diagnoses Not on filedocumented in this encounter"
--- OUTSIDE RECORDS SUMMARY | ~2020-06-03 | XMS | Encounter Summary ---
Demographics + + + | Address | [address] | | | [place] [address] | + + + | Home Phone [...] Author + + + | Author | [facility] | | | and [place] | + + + | Organization | [facility] | | | and [place] | + + + | Address | Unknown | + + + | Phone | Unavailable | + + + Support + + + + + | Name | Relationship | Address | Phone | + + + + + | Marilyn Diallo | ECON | [place] | | | | | [address] | | + + + + + Care Team Providers + +------+ + | Care Garbage Man Name | Role | Phone | + [...] | | | / | colitis, | INSPECTOR [address] | NP [address] | | | | Gastroenterol | unspecified | [facility] | [address] | | | | ogy | Medication | [place], | [address] | | | | | Reasons/moda | [address] | [place], | | | | | /arjun | [place], | [place] [address] | | | | | Procedures | [place] [address] | Phone: | | | | | OFFICE VISIT | Phone: | [phone] | | | | | REGULAR | [phone] | Fax: | | | | | | Fax: | [phone] | | | | | | [phone] | | +--------+--------+ + + + + Encounter Details +--------+---------+ + + + | Date | Type | Department | Care Team | Description | +--------+---------+ + + + | 05/20/ | Office | [facility] | [facility], | Ulcerative colitis, | | 2015 | Visit | GASTROENTEROLOGY | KYRA Singer [address] | with rectal bleeding | | | | [address] [place] | [address] | ([facility]) (Primary Dx) | | | | [address] [place], [place] | [place], [place] | | | | | [address] | [address] | | | | | [phone] | | | +--------+---------+ + + + [...] Laterality: N/A; Surgeon: Aris Schmid MD; Location: [facility] MEDICAL PROCE DURE UNIT Colonoscopy N/A 11/27/2014 Procedure: COLONOSCOPY; Surgeon: Aris Schmid MD; Location: [facility] MEDICAL PROCEDURE UNI T Sigmoid colon [...] [place] | | | | | | [place] [address] | | | | | | [phone] | | | | | | | | +--------+ + + + + | 07/09/ | Virtual | Gastroenterology | Osito Bowen | | | 2019 | Office | | MD Jonathan [address] | | | | Visit | | [place] [address] | | | | | | [phone] | | | | | | | [...]
--- OUTSIDE RECORDS SUMMARY | ~2020-06-03 | XMS | Encounter Summary ---
Demographics + + + | Address | [address] | | | [place] [address] | + + + | Home Phone [...] | [place] | | | | | [address] | | + + + + + Care Team Providers + +------+ + | Care Clinical Data Manager Name | Role | Phone | [...] | | | / | colitis, | ROTARY PEEL OVEN TENDER [address] | INVENTORY SPECIALIST [address] | | | | Gastroenterol | unspecified | [facility] | [address] | | | | ogy | Medication | [address], | [address] | | | | | Reasons/moda | [address] | [place], | | | | | /arjun | [place], | [place] [address] | | | | | Procedures | [place] [address] | Phone: | | | | | OFFICE VISIT | Phone: | [phone] | | | | | REGULAR | [phone] | Fax: | | | | | | Fax: | [phone] | | | | | | [phone] | | +--------+--------+ + + + + Encounter Details +--------+---------+ + + + | Date | Type | Department | Care Team | Description | +--------+---------+ + + + | 03/11/ | Office | [facility] | [facility], | Ulcerative colitis, | | 2015 | Visit | GASTROENTEROLOGY | KYRA [address] | other complication | | | | [address] [place] | [address] | ([facility]) (Primary Dx) | | | | [address] [place], [place] | [place], [place] | | | | | [address] | [address] | | | | | [phone] | | | +--------+---------+ + + + [...] | | | | | | [place] [address] | | | | | | [phone] | | | | | | | | +--------+ + + + + | 07/09/ | Virtual | Gastroenterology | Osito Bowen | | 2019 | Office | | MD Jonathan [address] | | | | Visit | | [place] [address] | | | | | | [phone] | | | | | | | | +--------+ + + + + documented as of this encounter Visit Diagnoses + + | Diagnosis | + + | Ulcerative colitis, other complication - Primary | + + documented in this encounter"
--- OUTSIDE RECORDS SUMMARY | ~2020-06-03 | XMS | Encounter Summary ---
Demographics + + + | Address | [address] | | | [place] [address] | + + + | Home Phone [...] [place] | | | | | [address] | | + + + + + Care Team Providers + +------+ + | Care Mohs Surgeon/General Dermatologist Name | Role | Phone | + +------+ + | No, Physician | PCP | Unavailable | + +------+ + Reason for Visit +--------+--------+ + | Reason | Onset | Comments | | | Date | | +--------+--------+ + | Other | 07/26/ | | | | 2012 | | +--------+--------+ + Encounter Details +--------+ + + + + | Date | Type | Department | Care Team | Description | +--------+ + + + + | 07/26/ | Telephone | [facility] | [facility], | Other | | 2012 | | GASTROENTEROLOGY | KYRA Singer [address] | | | | | [address] | [address] | | | | | [address] [place], [place] | [place], [place] | | | | | [address] | [address] | | | | | [phone] | | | +--------+ + + + [...] Encounter - Elana Rodriguez RN - 07/26/2013 3:59 PM PDTCalled pharmacy back anthony nt has already started to taper her medication so quantity is right, Janay in pharmacy shi brown. ele phone Encounter - Valeriy Potter - 07/26/2013 3:48 PM PDTPharmacy called with questions about quantity of medication. Please call [phone] signed by Valeriy barr at 07/26/2013 3:49 PM PDTdocumented in this encounter Plan of [...] | | | | | | [place] [address] | | | | | | [phone] | | | | | | | | +--------+ + + + + | 07/09/ | Virtual | Gastroenterology | Osito Bowen | | | 2019 | Office | | MD Jonathan [address] | | | | Visit | | [place] [address] | | | | | | [phone] | | | | | | | | +--------+ + + + + documented as of this encounter Visit Diagnoses Not on filedocumented in this encounter"
--- OUTSIDE RECORDS SUMMARY | ~2020-06-03 | XMS | Encounter Summary ---
Demographics + + + | Address | [address] | | | [place] [address] | + + + | Home Phone [...] [place] | | | | | [address] | | + + + + + Care Team Providers + +------+ + | Care Office Administration Name | Role | Phone | + +------+ + | Carlos Díaz NP | PCP | | + +------+ + Encounter Details +--------+ + + + + | Date | Type | Department | Care Team | Description | +--------+ + + + + | 06/04/ | Orders Only | [facility] [place] | [facility], | | | 2014 | | GASTROENTEROLOGY | KYRA Singer [address] | | | | | [address] | [address] | | | | | [address] [place], [place] | [place], [place] | | | | | [address] | [address] | | | | | [phone] | | | +--------+ + + + [...] | | | | | | [place] [address] | | | | | | [phone] | | | | | | | | +--------+ + + + + | 07/09/ | Virtual | Gastroenterology | Osito Bowen | | | 2019 | Office | | MD Jonathan [address] | | | | Visit | | [place] [address] | | | | | | [phone] | | | | | | | | +--------+ + + + + documented as of this encounter Visit Diagnoses Not on filedocumented in this encounter"
--- OUTSIDE RECORDS SUMMARY | ~2020-06-03 | XMS | Encounter Summary ---
Demographics + + + | Address | [address] | | | [place] [address] | + + + | Home Phone [...] [place] | | | | | [address] | | + + + + + Care Team Providers + +------+ + | Care Farm Mortgage Agent Name | Role | Phone | + +------+ + | Carlos Díaz NP | PCP | | + +------+ + Encounter Details +--------+ + + + + | Date | Type | Department | Care Team | Description | +--------+ + + + + | 08/05/ | Documentati | [facility] [place] | [facility], | | | 2014 | on | GASTROENTEROLOGY | KYRA [address] | | | | | [address] | [address] | | | | | [address] [place], [place] | [place], [place] | | | | | [address] | [address] | | | | | [phone] | | | +--------+ + + + [...] of this encounter Progress Notes Graciela Narayanan, Pallet Stone Positioner - 08/05/2015 1:47 PM PDTReceived Prior Authorization Approval for patient to get her Humira 40 mg/0.8ML syringes per 28 day supply. The prior au thorization approval is effective from May 24, 2015 through May 24, 2016. Reference rob gomezer [address]. From [facility] ([facility]). documented in this encoun ter [...] | | | | | | [place] [address] | | | | | | [phone] | | | | | | | | +--------+ + + + + | 07/09/ | Virtual | Gastroenterology | Osito Bowen | | | 2019 | Office | | MD Jonathan [address] | | | | Visit | | [place] [address] | | | | | | [phone] | | | | | | | | +--------+ + + + + documented as of this encounter Visit Diagnoses Not on filedocumented in this encounter"
--- OUTSIDE RECORDS SUMMARY | ~2020-06-03 | XMS | Encounter Summary ---
Demographics + + + | Address | [address] | | | [place] [address] | + + + | Home Phone [...] [place] | | | | | [address] | | + + + + + Care Team Providers + +------+ + | Care Scutcher Tender Name | Role | Phone | + +------+ + | Carlos Díaz NP | PCP | | + +------+ + Encounter Details +--------+ + + + + | Date | Type | Department | Care Team | Description | +--------+ + + + + | 06/01/ | Orders Only | [facility] | Sriram Palomino V, | | | 2018 | | CONVERSION [address] | MD [address] | | | | | [address] | [address] [place] | | | | | [facility] [place] | [address] | | | | | [address] | | | | | | [phone] | | | +--------+ + + + [...] [place], | | | | | | [place] [address] | | | | | | [phone] | | | | | | | | +--------+ + + + + | 07/09/ | Virtual | Gastroenterology | Osito Bowen | | | 2020 | Office | | MD Jonathan [address] | | | | Visit | | [place] [address] | | | | | | [phone] | | | | | | | | +--------+ + + + + documented as of this encounter Procedures + +--------+ + + + | Procedure Name | Priori | Date/Time | Associated Diagnosis | Comments | | | ty | | | | + +--------+ + + + | ECHO INTERPRETATION | Routin | 02/20/2019 | | Results for this | | OF OUTSIDE FILMS | e | 1:30 PM | | procedure are in the | | | | PDT | | results section. | + +--------+ + + + documented in this encounter Results ECHO Interpretation of Outside Films (02/20/2019 1:30 PM PDT) + + | Specimen | + + | | + + + + + | Impressions | Performed At | + + + | 1. Overall left ventricular systolic function is normal with, an EF | | | between 60 - 65 %. 2. The right ventricle is normal in size and | | | function. 3. There is no pericardial effusion. | | + + + + + + | Narrative | Performed At | + + + | Patient Name: Ria Hastings Date of : 1980 | | | Performing Physician: Shayla Eastman MD | | | | | | INDICATIONS Fever, Sepsis, pneumonia CONCLUSIONS | | | 1. Overall left ventricular systolic function is normal | | | with, an EF between 60 - 65 %. 2. The right ventricle is normal in | | | size and function. 3. There is no pericardial effusion. FINDINGS | | | -------- ECG rhythm: Sinus rhythm. Study: A 2-dimensional | | | transthoracic echocardiogram with m-mode, spectral and color flow | | | Doppler was perfomed. Study: This was a technically adequate study. | | | Left Ventricle: Overall left ventricular systolic function is normal | | | with, an EF between 60 - 65 %. Left Ventricle: The left ventricle | | | cavity size is normal. Left Ventricle: Left ventricular wall | | | thickness is normal. Left Ventricle: No regional wall motion | | | abnormalities. Left Ventricle: The diastolic filling pattern is | | | normal for the age of the patient. Right Ventricle: The right | | | ventricle is normal in size and function. Left Atrium: The left | | | atrium is normal in size. Right Atrium: The right atrium is mildly | | | enlarged. Aortic Valve: The aortic valve appears to be trileaflet. | | | Aortic Valve: Trace amount of aortic regurgitation. Aortic Valve: | | | There is no evidence of aortic stenosis. Mitral Valve: The mitral | | | valve is normal. Mitral Valve: There is trace mitral regurgitation. | | | Tricuspid Valve: The tricuspid valve appears structurally normal. | | | Tricuspid Valve: Trace tricuspid regurgitation present. Tricuspid | | | Valve: The right ventricular systolic pressure (pulmonary artery | | | systolic pressure), as measured by Doppler, is 42.24mmHg. Tricuspid | | | Valve: There is mild pulmonary hypertension. Pulmonic Valve: Mild | | | pulmonic regurgitation. Pulmonic Valve: The pulmonic valve is normal. | | | Pericardium: There is no pericardial effusion. Pericardium: No | | | pleural effusion seen. IVC/Hepatic Veins: The IVC is dilated (>2.5cm) | | | and collapses <50% with sniff, consistent with central venous | | | pressures of 15-20mmHg. Aorta: The aortic root, ascending aorta and | | | aortic arch are normal. Thrombus: No vegetation visualized if | | | clinically indicated transesophageal echocardiogram is recommended. | | | MEASUREMENTS Ao asc: 3.11 cm Ao Diam: 3.14 cm | | | Ao sinus: 3.[address] junct: 2.90 cm IVC: 2.58 cm LA | | | Major: 4.43 cm EDV(Teich): 135.11 ml IVSd: 0.92 cm LVIDd: | | | 5.29 cm LVPWd: 1.01 cm LVOT Diam: 2.19 cm %FS: 31.61 % | | | EF(Teich): 59.12 % ESV(Teich): 55.22 ml LVIDs: 3.62 cm | | | SV(Teich): 79.89 ml RA Major: 5.15 cm RV Major: 8.87 cm RV | | | Minor: 3.43 cm RV Minor: 3.07 cm LVEF MOD A2C: 61.55 % SV | | | MOD A2C: 113.88 ml LVEF MOD A4C: 58.40 % SV MOD A4C: 86.73 | | | ml EF Biplane: 61.22 % LVEDV MOD BP: 170.52 ml LVESV MOD BP: | | | 66.12 ml LVEDV MOD A2C: 185.00 ml LVLd A2C: 9.68 cm LVEDV | | | MOD A4C: 148.50 ml LVLd A4C: 10.28 cm LVESV MOD A2C: 71.11 | | | ml LVLs A2C: 8.12 cm LVESV MOD A4C: 61.76 ml LVLs A4C: | | | 8.05 cm LAESV(A-L): 43.77 ml LAESV Index (A-L): 22.91 ml/m2 | | | LAAs A2C: 15.64 cm2 LAESV A-L A2C: 44.31 ml LAESV MOD A2C: | | | 43.57 ml LALs A2C: 4.68 cm LAAs A4C: 15.45 cm2 LAESV A-L A4C: | | | 42.63 ml LAESV MOD A4C: 35.71 ml LALs A4C: 4.75 cm RAAs: | | | 18.18 cm2 RAESV A-L: 51.01 ml RAESV MOD: 50.60 ml RALs: | | | 5.50 cm TAPSE: 2.69 cm AV Env.Ti: 282.63 ms AV maxPG: | | | 12.73 mmHg AV meanP.50 mmHg AV Vmax: 1.78 m/s AV Vmean: | | | 1.30 m/s AV VTI: 36.76 cm THOR Vmax: 2.84 cm2 THOR (VTI): | | | 2.79 cm2 AVAI Vmax: 0.00 cm2/m2 AVAI (VTI): 0.00 cm2/m2 LVOT | | | Env.Ti: 288.28 ms LVOT maxP.28 mmHg LVOT meanP.09 | | | mmHg LVSI Dopp: 53.74 ml/m2 LVSV Dopp: 102.64 ml LVOT Vmax: | | | 1.34 m/s LVOT Vmean: 0.94 m/s LVOT VTI: 27.25 cm MV A Jordan: | | | 0.73 m/s MV Dec Talbot: 5.74 m/s2 MV DecT: 220.15 ms MV E | | | Jordan: 1.26 m/s MV E/A Ratio: 1.71 E/E' Sept: 10.36 E' Lat: | | | 0.13 m/s E' Sept: 0.12 m/s RAP: 15 mmHg RV S': 0.18 m/s | | | RVSP: 42.23 mmHg TR maxP.23 mmHg TR Vmax: 2.60 m/s | | | Post Form Remover: Authenticated by: Shayla Eastamn MD Report | | | Date/Time: -- [id number] | | + + + + + | Procedure Note | + + | Tolu Burger Conversion - 06/01/2019 1:40 PM PDT Patient Name: Mary Jo Hastings of | | : 1980 Performing Physician: Shayla Eastman | | INDICATIONS F | | ever, Sepsis, pneumonia CONCLUSIONS 1. Overall left ventricular systolic | | function is normal with, an EF between 60 - 65 %.2. The right ventricle is normal in | | size and function.3. There is no pericardial effusion. FINDINGS--------ECG rhythm: Sinus | | rhythm.Study: A 2-dimensional transthoracic echocardiogram with m-mode, spectral and | | color flow Doppler was perfomed.Study: This was a technically adequate study.Left | | Ventricle: Overall left ventricular systolic function is normal with, an EF between 60 - | | 65 %.Left Ventricle: The left ventricle cavity size is normal.Left Ventricle: Left | | ventricular wall thickness is normal.Left Ventricle: No regional wall motion | | abnormalities.Left Ventricle: The diastolic filling pattern is normal for the age of the | | patient.Right Ventricle: The right ventricle is normal in size and function.Left | | Atrium: The left atrium is normal in size.Right Atrium: The right atrium is mildly | | enlarged.Aortic Valve: The aortic valve appears to be trileaflet.Aortic Valve: Trace | | amount of aortic regurgitation.Aortic Valve: There is no evidence of aortic | | stenosis.Mitral Valve: The mitral valve is normal.Mitral Valve: There is trace mitral | | regurgitation.Tricuspid Valve: The tricuspid valve appears structurally normal.Tricuspid | | Valve: Trace tricuspid regurgitation present.Tricuspid Valve: The right ventricular | | systolic pressure (pulmonary artery systolic pressure), as measured by Doppler, is | | 42.24mmHg.Tricuspid Valve: There is mild pulmonary hypertension.Pulmonic Valve: Mild | | pulmonic regurgitation.Pulmonic Valve: The pulmonic valve is normal.Pericardium: There | | is no pericardial effusion.Pericardium: No pleural effusion seen.IVC/Hepatic Veins: The | | IVC is dilated (>2.5cm) and collapses <50% with sniff, consistent with central venous | | pressures of 15-20mmHg.Aorta: The aortic root, ascending aorta and aortic arch are | | normal.Thrombus: No vegetation visualized if clinically indicated transesophageal | | echocardiogram is recommended. MEASUREMENTS Ao asc: 3.11 cmAo Diam: 3.14 | | cmAo sinus: 3.[address] junct: 2.90 cmIVC: 2.58 cmLA Major: 4.43 cmEDV(Teich): | | 135.11 mlIVSd: 0.92 cmLVIDd: 5.29 cmLVPWd: 1.01 cmLVOT Diam: 2.19 cm%FS: | | 31.61 %EF(Teich): 59.12 %ESV(Teich): 55.22 mlLVIDs: 3.62 cmSV(Teich): 79.89 mlRA | | Major: 5.15 cmRV Major: 8.87 cmRV Minor: 3.43 cmRV Minor: 3.07 cmLVEF MOD A2C: | | 61.55 %SV MOD A2C: 113.88 mlLVEF MOD A4C: 58.40 %SV MOD A4C: 86.73 mlEF Biplane: | | 61.22 %LVEDV MOD BP: 170.52 mlLVESV MOD BP: 66.12 mlLVEDV MOD A2C: 185.00 | | mlLVLd A2C: 9.68 cmLVEDV MOD A4C: 148.50 mlLVLd A4C: 10.28 cmLVESV MOD A2C: | | 71.11 mlLVLs A2C: 8.12 cmLVESV MOD A4C: 61.76 mlLVLs A4C: 8.05 cmLAESV(A-L): | | 43.77 mlLAESV Index (A-L): 22.91 ml/m2LAAs A2C: 15.64 [id number] A-L A2C: 44.31 | | mlLAESV MOD A2C: 43.57 mlLALs A2C: 4.68 cmLAAs A4C: 15.45 [id number] A-L A4C: | | 42.63 mlLAESV MOD A4C: 35.71 mlLALs A4C: 4.75 cmRAAs: 18.18 [id number] A-L: 51.01 | | mlRAESV MOD: 50.60 mlRALs: 5.50 cmTAPSE: 2.69 cmAV Env.Ti: 282.63 msAV maxPG: | | 12.73 mmHgAV meanP.50 mmHgAV Vmax: 1.78 m/Kirk Vmean: 1.30 m/Kirk VTI: 36.76 | | cmAVA Vmax: 2.84 cm2AVA (VTI): 2.79 [id number] Vmax: 0.00 cm2/m2AVAI (VTI): 0.00 | | cm2/m2LVOT Env.Ti: 288.28 msLVOT maxP.28 mmHgLVOT meanP.09 mmHgLVSI Dopp: | | 53.74 ml/m2LVSV Dopp: 102.64 mlLVOT Vmax: 1.34 m/sLVOT Vmean: 0.94 m/sLVOT VTI: | | 27.25 cmMV A Jordan: 0.73 m/sMV Dec Talbot: 5.74 m/s2MV DecT: 220.15 msMV E Jordan: | | 1.26 m/sMV E/A Ratio: 1.71E/E' Sept: 10.36E' Lat: 0.13 m/sE' Sept: 0.12 m/sRAP: | | 15 mmHgRV S': 0.18 m/sRVSP: 42.23 mmHgTR maxP.23 mmHgTR Vmax: 2.60 m/s | | Post Form Remover:Authenticated by: [facility] Date/Time: -- | | [id number] IMPRESSION: 1. Overall left ventricular systolic function is | | normal with, an EF between 60 - 65 %.2. The right ventricle is normal in size and | | function.3. There is no pericardial effusion. | |Ao asc: 3.11 cm | |Ao Diam: 3.14 cm | |Ao sinus: 3.24 cm | |Ao st junct: 2.90 cm | |IVC: 2.58 cm | |LA Major: 4.43 cm | |EDV(Teich): 135.11 ml | |IVSd: 0.92 cm | |LVIDd: 5.29 cm | |LVPWd: 1.01 cm | |LVOT Diam: 2.19 cm | |%FS: 31.61 % | |EF(Teich): 59.12 % | |ESV(Teich): 55.22 ml | |LVIDs: 3.62 cm | |SV(Teich): 79.89 ml | |RA Major: 5.15 cm | |RV Major: 8.87 cm | |RV Minor: 3.43 cm | |RV Minor: 3.07 cm | |LVEF MOD A2C: 61.55 % | |SV MOD A2C: 113.88 ml | |LVEF MOD A4C: 58.40 % | |SV MOD A4C: 86.73 ml | |EF Biplane: 61.22 % | |LVEDV MOD BP: 170.52 ml | |LVESV MOD BP: 66.12 ml | |LVEDV MOD A2C: 185.00 ml | |LVLd A2C: 9.68 cm | |LVEDV MOD A4C: 148.50 ml | |LVLd A4C: 10.28 cm | |LVESV MOD A2C: 71.11 ml | |LVLs A2C: 8.12 cm | |LVESV MOD A4C: 61.76 ml | |LVLs A4C: 8.05 cm | |LAESV(A-L): 43.77 ml | |LAESV Index (A-L): 22.91 ml/m2 | |LAAs A2C: 15.64 cm2 | |LAESV A-L A2C: 44.31 ml | |LAESV MOD A2C: 43.57 ml | |LALs A2C: 4.68 cm | |LAAs A4C: 15.45 cm2 | |LAESV A-L A4C: 42.63 ml | |LAESV MOD A4C: 35.71 ml | |LALs A4C: 4.75 cm | |RAAs: 18.18 cm2 | |RAESV A-L: 51.01 ml | |RAESV MOD: 50.60 ml | |RALs: 5.50 cm | |TAPSE: 2.69 cm | |AV Env.Ti: 282.63 ms | |AV maxP.73 mmHg | |AV meanP.50 mmHg | |AV Vmax: 1.78 m/s | |AV Vmean: 1.30 m/s | |AV VTI: 36.76 cm | |THOR Vmax: 2.84 cm2 | |THOR (VTI): 2.79 cm2 | |AVAI Vmax: 0.00 cm2/m2 | |AVAI (VTI): 0.00 cm2/m2 | |LVOT Env.Ti: 288.28 ms | |LVOT maxP.28 mmHg | |LVOT meanP.09 mmHg | |LVSI Dopp: 53.74 ml/m2 | |LVSV Dopp: 102.64 ml | |LVOT Vmax: 1.34 m/s | |LVOT Vmean: 0.94 m/s | |LVOT VTI: 27.25 cm | |MV A Jordan: 0.73 m/s | |MV Dec Talbot: 5.74 m/s2 | |MV DecT: 220.15 ms | |MV E Jordan: 1.26 m/s | |MV E/A Ratio: 1.71 | |E/E' Sept: 10.36 | |E' Lat: 0.13 m/s | |E' Sept: 0.12 m/s | |RAP: 15 mmHg | |RV S': 0.18 m/s | |RVSP: 42.23 mmHg | |TR maxP.23 mmHg | |TR Vmax: 2.60 m/s | | | |Post Form Remover: | |Authenticated by: Shayla Eastman MD | |Report Date/Time: -- [id number]:25:[id number] | | | |IMPRESSION: | |1. Overall left ventricular systolic function is normal with, an EF between 60 - 65 %. | |2. The right ventricle is normal in size and function. | |3. There is no pericardial effusion. | + + documented in this encounter Visit Diagnoses Not on filedocumented in this encounter"
--- OUTSIDE RECORDS SUMMARY | ~2020-06-03 | XMS | Encounter Summary ---
Demographics + + + | Address | [address] | | | [place] [address] | + + + | Home Phone [...] | [place] | | | | | [address] | | + + + + + Care Team Providers + +------+ + | Care Casing Tier Name | Role | Phone | + [...] + + | 04/12/ | Telephone | [facility] | [facility], | Other (joint | | 2013 | | GASTROENTEROLOGY | KYRA Singer [address] | discomfort) | | | | [address] | [address] | | | | | [address] [place] | [place] | | | | | [address] | [id number] | | | | | [phone] | | | +--------+ + + + [...] verbalized understanding. She states she is jaycee g to have her TB test done on [...] 2019 | Office | | [address] | | | | Visit | | [place] | | | | | | [place] [address] | | | | | | [phone] | | | | | | | | +--------+ + + + + | 07/09/ | Virtual | Gastroenterology | Osito Bowen | | 2019 | Office | | MD Jonathan [address] | | | | Visit | | [place] [address] | | | | | | [phone] | | | | | | | | +--------+ + + + + documented as of this encounter Visit Diagnoses Not on filedocumented in this encounter
--- OUTSIDE RECORDS SUMMARY | ~2020-06-03 | XMS | Encounter Summary ---
Demographics + + + | Address | [address] | | | [place] [address] | + + + | Home Phone [...] | + + + + + | Marilny Diallo | ECON | [place] | | | | | [address] | | + + + + + Care Team Providers + +------+ + | Care Demand Generation Manager Name | Role | Phone | [...] + | 02/09/ | Telephone | [facility] | [facility], | Other (Message from | | 2015 | | GASTROENTEROLOGY | KYRA Singer [address] | Pharmacy) | | | | [address] | [address] | | | | | [address] [place], [place] | [place], [place] | | | | | [address] | [address] | | | | | [phone] | | | +--------+ + + + [...] Deleon - 02/10/2016 1:48 PM PDTFranklinda from [facility] and verified [facility] have [...] | | | | | | [place] [address] | | | | | | [phone] | | | | | | | | +--------+ + + + + | 07/09/ | Virtual | Gastroenterology | Osito Bowen | | | 2019 | Office | | MD Jonathan [address] | | | | Visit | | [place] [address] | | | | | | [phone] | | | | | | | | +--------+ + + + + documented as of this encounter Visit Diagnoses Not on filedocumented in this encounter"
--- OUTSIDE RECORDS SUMMARY | ~2020-06-03 | XMS | Encounter Summary ---
Demographics + + + | Address | [address] | | | [place] [address] | + + + | Home Phone [...] Author + + + | Author | [facility] | | | and [place] | + + + | Organization | [facility] | | | and [place] | + + + | Address | Unknown | + + + | Phone | Unavailable | + + + Support + + + + + | Name | Relationship | Address | Phone | + + + + + | Marilyn Diallo | ECON | [place] | | | | | [address] | | + + + + + Care Team Providers + +------+ + | Care Basting Marker Name | Role | Phone | + [...] + + | 11/05/ | Telephone | [facility] | Aris Schmid MD | Other (Reschedule | | 2014 | | GASTROENTEROLOGY | [address] | procedure date) | | | | [address] | [place], [place] | | | | | [address] [place], [place] | [address] | | | | | [address] | [phone] | | | | | [phone] | | | +--------+ + + + [...] with Dr Schmid tomorrow. Please call dorina gregorio to reschedule. documentrey d in this encounter Plan of Treatment +--------+ + + + + | Date | Type | Specialty | Care Team | Description | +--------+ + + + + | 06/04/ | Virtual | Gastroenterology | Natalie, | | 2019 | Office | | [address] | | | | Visit | | [facility] | | | | | | [place] [address] | | | | | | [phone] | | | | | | | | +--------+ + + + + | 07/09/ | Virtual | Gastroenterology | Osito Bowen | | | 2020 | Office | | MD Jonathan [address] | | | | Visit | | [place] [address] | | | | | | [phone] | | | | | | | | +--------+ + + + + documented as of this encounter Visit Diagnoses Not on filedocumented in this encounter"
--- OUTSIDE RECORDS SUMMARY | ~2020-06-03 | XMS | Encounter Summary ---
Demographics + + + | Address | [address] | | | [place] [address] | + + + | Home Phone [...] + + + | Author | [facility] | | | and [place] | + + + | Organization | [facility] | | | and [place] | + + + | Address | Unknown | + + + | Phone | Unavailable | + + + Support + + + + + | Name | Relationship | Address | Phone | + + + + + | Marilyn Diallo | ECON | [place] | | | | | [address] | | + + + + + Care Team Providers + +------+ + | Care Utility Clerk Name | Role | Phone | [...] | | remicade-wee | Lucrecia, | [address] | | | | | k 0 | MILL MANAGER [address] | [place], | | | | | Procedures | [address] | [place] [address] | | | | | [place] | [address] | Phone: | | | | | INFLIXIMAB | [place], | [phone] | | | | | INJECTION, | [place] [address] | Fax: | | | | | 10 MG [place] IV | Phone: | [phone] | | | | | INFUSION, | [phone] | | | | | | THERAP/PROPH | Fax: | | | | | | /[place] | [phone] | | | | | | ITIAL,1ST [...] + + | 05/28/ | Hospital | [facility] | [facility], | Ulcerative colitis, | | 2013 | Encounter | MED CTR OP INFUSION | KYRA Singer [address] | with rectal bleeding | | | | [address] | [address] | ([facility]) (Primary Dx) | | | | [place], [place] | [place], [place] | | | | | [address] | [id number] | | | | | [phone] | | | +--------+ + + + [...] 2019 | Office | | [address] | | | | Visit | | [place] | | | | | | [place] [address] | | | | | | [phone] | | | | | | | | +--------+ + + + + | 07/09/ | Virtual | Gastroenterology | Osito Bowen | | 2019 | Office | | MD Jonathan [address] | | | | Visit | | [place] [address] | | | | | | [phone] | | | | | | | [...]
--- OUTSIDE RECORDS SUMMARY | ~2020-06-03 | XMS | Encounter Summary ---
Demographics + + + | Address | [address] | | | [place] [address] | + + + | Home Phone [...] + + + | Author | [facility] | | | and [place] | + + + | Organization | [facility] | | | and [place] | + + + | Address | Unknown | + + + | Phone | Unavailable | + + + Support + + + + + | Name | Relationship | Address | Phone | + + + + + | Marilyn Diallo | ECON | [place] | | | | | [address] | | + + + + + Care Team Providers + +------+ + | Care Car Seat Upholsterer Name | Role | Phone | + [...] Description | +--------+---------+ + + + | 11/27/ | Surgery | [facility] | Aris Schmid MD | COLONOSCOPY | | 2015 | | MED CTR [facility] IN[facility] OP | [address] | | | | | [address] | [place], [place] | | | | | [place] | [address] | | | | | [address] | [phone] | | | | | [phone] | | | +--------+---------+ + + + [...] the physician who did your procedure at [phone] if you have any questions or experience any of the following: ? Increasing abdominal pain, nausea, or vomiting. ? Chills and fever over 101F. ? New abdominal swelling or bloating. ? Signs of rectal bleeding (black or red stool. If you cannot get a hold of your physician, then call the [facility] [phone] . If necessary, report to the Emergency Department at [facility]. Quit smoking: If you smoke or have [...] documented as of this encounter Progress Notes Sania Najera RN - 11/27/2014 1:22 PM PSTUp to bathroom. Return to room and dc'd iv i ntact. Home in good and stable condition.Electronically signed by Sania Najera RN at 1:23 PM PSTdocumented in this encounter H&P Notes Aris Schmid MD - 11/27/2014 11:10 AM PSTPatient interviewed, history and physical, symp toms reviewed VS signs noted, no change from previous H&P or assessment and plan.Electronic ally signed by Aris Schmid MD at 11/27/2014 11:10 AM PSTLucrecia Blank ARNP - 10/30 10:33 AM PST Ria Hastings [...] She notes that she woke up on ' day with shortness of breath. Also having nasal [...] N/A; Surgeon: Aris Schmid MD; Location: [facility] Family History Problem Relation Age [...] | | | | | | [place] [address] | | | | | | [phone] | | | | | | | | +--------+ + + + + | 07/09/ | Virtual | Gastroenterology | Osito Bowen | | | 2019 | Office | | MD Jonathan [address] | | | | Visit | | [place] [address] | | | | | | [phone] | | | | | | | [...] comorbidity) | | | | | | ([facility]) | | + +--------+ + + [...] 11/27/2014 | PROVATION | | 11:01 AMMRN: [id number] #: [id number] of : | | | 1980Admit Type: AmbulatoryAge: 34Room: [facility] 02Gender: FemaleNote | | | Status: FinalizedAttending MD: Aris Schmid, [facility]cedure: | | | ColonoscopyIndications: Diarrhea, | | [...] the nurse | | | and the jewelry technician in the pre-procedure area in the [...] AMScope | | | Out: 11:32:52 AM [facility], [address] | | | [place] [address] | | | - Continue present medications. [...] |Scope Out: 11:32:52 AM | | | [facility], [address] [facility], [place], [place] | | | [address] | | + + -+ + +---------+ [...] + + + + + | C[facility] | [address] | [place], [place] | [phone] | | [facility] | | [address] | | | LABORATORY | | | | + + + + + documented in this encounter Visit Diagnoses + + | Diagnosis | + + | Ulcerative colitis, unspecified | + + | Diarrhea | + + | Obesity (BMI 35.0-39.9 without comorbidity) Obesity, unspecified | + + documented in this [...]
--- OUTSIDE RECORDS SUMMARY | ~2020-06-03 | XMS | Encounter Summary ---
Demographics + + + | Address | [address] | | | [place] [address] | + + + | Home Phone [...] [place] | | | | | [address] | | + + + + + Care Team Providers + +------+ + | Care Fuel Injection Servicer Name | Role | Phone | + [...] [address] | | | | | [address] [place], [place] | [place], [place] | | | | | [address] | [address] | | | | | [phone] | | | +--------+ + + + [...] | | | | | | [place] [address] | | | | | | [phone] | | | | | | | | +--------+ + + + + | 07/09/ | Virtual | Gastroenterology | Osito Bowen | | 2019 | Office | | MD Jonathan [address] | | | | Visit | | [place] [address] | | | | | | [phone] | | | | | | | | +--------+ + + + + documented as of this encounter Visit Diagnoses Not on filedocumented in this encounter"
--- OUTSIDE RECORDS SUMMARY | ~2020-06-03 | XMS | Encounter Summary ---
Demographics + + + | Address | [address] | | | [place] [address] | + + + | Home Phone [...] [place] | | | | | [address] | | + + + + + Care Team Providers + +------+ + | Care Television Antenna Installer Name | Role | Phone | + +------+ + PCP | Unavailable | + +------+ + Encounter Details +--------+ + + + + | Date | Type | Department | Care Team | Description | +--------+ + + + + | 02/10/ | Hospital | [facility] | | | | 2011 | Encounter | MED CTR LABORATORY | | | | | | [address] | | | | | | [place] | | | | | | [address] | | | | | | [phone] | | | +--------+ + + + [...] | | | | | | [place] [address] | | | | | | [phone] | | | | | | | | +--------+ + + + + | 07/09/ | Virtual | Gastroenterology | Osito Bowen | | | 2019 | Office | | MD Jonathan [address] | | | | Visit | | [place] [address] | | | | | | [phone] | | | | | | | | +--------+ + + + + documented as of this encounter Procedures + +--------+ + + + | Procedure Name | Priori | Date/Time | Associated Diagnosis | Comments | | | ty | | | | + +--------+ + + + | SEDIMENTATION RATE | Routin | 02/11/2012 | | Results for this | | | e | 2:54 PM | | procedure are in the | | | | PDT | | results section. | + +--------+ + + + | CBC WITH | Routin | 02/11/2012 | | Results for this | | DIFFERENTIAL | e | 2:54 PM | | procedure are in the | | | | PDT | | results section. | + +--------+ + + + | C-REACTIVE PROTEIN | Routin | 02/11/2012 | | Results for this | | | e | 2:54 PM | | procedure are in the | | | | PDT | | results section. | + +--------+ + + + documented in this encounter Results C-Reactive Protein (02/11/2012 2:54 PM PDT) + + + + + + | Component | Value | Ref Range | Performed | Pathologist | | | | | At | Signature | + + + + + + | CRP | 20.30 (H)Comment: Levels | <8.0 mg/L | [facility] | | | | >8.0 mg/L indicate | | [facility] | | | | possible infection, | | MEDICAL | | | | trauma, cardiac | | CENTER - | | | | infarct or neoplastic | | LABORATORY | | | | proliferation. | | | | + + + + + + + + | Specimen | + + | | + + + + + + + | Performing | Address | City/State/Zipcode | Phone Number | | Organization | | | | + + + + + | [facility] | [address] | [place], [place] | [phone] | | [facility] | | [address] | | | - LABORATORY | | | | + + + + + | [facility] | [address] | [place], [place] | | | [facility] | | [address], [facility] | | | - LABORATORY | | | | + + + + + CBC with Differential (02/11/2012 2:54 PM PDT) + + + + + + | Component | Value | Ref Range | Performed | Pathologist | | | | | At | Signature | + + + + + + | White Blood | 11.8 (H) | 4.0 - 11.0 K/uL | [facility] | | | Cells | | | [facility] | | | | | | MEDICAL | | | | | | CENTER - | | | | | | LABORATORY | | + + + + + + | Red Blood | 4.62 | 3.70 - 5.20 | [facility] | | | Cells | | M/uL | [facility] | | | | | | MEDICAL | | | | | | CENTER - | | | | | | LABORATORY | | + + + + + + | Hemoglobin | 12.2 | 11.5 - 16.0 | [facility] | | | | | gm/dL | [facility] | | | | | | MEDICAL | | | | | | CENTER - | | | | | | LABORATORY | | + + + + + + | Hematocrit | 38.0 | 34.0 - 47.0 % | [facility] | | | | | | [facility] | | | | | | MEDICAL | | | | | | CENTER - | | | | | | LABORATORY | | + + + + + + | MCV | 82.3 (L) | 83.0 - 101.0 fL | [facility] | | | | | | [facility] | | | | | | MEDICAL | | | | | | CENTER - | | | | | | LABORATORY | | + + + + + + | MCH | 26.4 (L) | 28.0 - 35.0 pg | [facility] | | | | | | [facility] | | | | | | MEDICAL | | | | | | CENTER - | | | | | | LABORATORY | | + + + + + + | MCHC | 32.1 | 32.0 - 36.0 | [facility] | | | | | g/dL | [facility] | | | | | | MEDICAL | | | | | | CENTER - | | | | | | LABORATORY | | + + + + + + | RDW-CV | 15.4 (H) | <15.0 % | [facility] | | | | | | [facility] | | | | | | MEDICAL | | | | | | CENTER - | | | | | | LABORATORY | | + + + + + + | Platelet | 276 | 140 - 440 K/uL | [facility] | | | Count | | | [facility] | | | | | | MEDICAL | | | | | | CENTER - | | | | | | LABORATORY | | + + + + + + | % | 82.8 (H) | 45 - 75 % | [facility] | | | Neutrophils | | | [facility] | | | | | | MEDICAL | | | | | | CENTER - | | | | | | LABORATORY | | + + + + + + | % | 8.7 (L) | 20 - 45 % | [facility] | | | Lymphocytes | | | [facility] | | | | | | MEDICAL | | | | | | CENTER - | | | | | | LABORATORY | | + + + + + + | % Monocytes | 8.2 | 4 - 12 % | [facility] | | | | | | [facility] | | | | | | MEDICAL | | | | | | CENTER - | | | | | | LABORATORY | | + + + + + + | % | 0.2 | 0 - 5 % | [facility] | | | Eosinophils | | | [facility] | | | | | | MEDICAL | | | | | | CENTER - | | | | | | LABORATORY | | + + + + + + | % Basophils | 0.1 | 0 - 1 % | [facility] | | | | | | [facility] | | | | | | MEDICAL | | | | | | CENTER - | | | | | | LABORATORY | | + + + + + + | Absolute | 9.8 (H) | 1.5 - 6.6 K/uL | [facility] | | | Neutrophils | | | [facility] | | | | | | MEDICAL | | | | | | CENTER - | | | | | | LABORATORY | | + + + + + + | Absolute | 1.0 | 0.6 - 3.2 K/uL | [facility] | | | Lymphocytes | | | [facility] | | | | | | MEDICAL | | | | | | CENTER - | | | | | | LABORATORY | | + + + + + + | Absolute | 1.0 | 0.0 - 1.0 K/uL | [facility] | | | Monocytes | | | [facility] | | | | | | MEDICAL | | | | | | CENTER - | | | | | | LABORATORY | | + + + + + + | Absolute | 0.0 | 0.0 - 0.4 K/uL | [facility] [...] + | [facility] | [address] | [place], [place] | [phone] | | [facility] | | [address] | | | - LABORATORY | | | | + + + + + | [facility] | [address] | [place], [place] | | | [facility] | | [address], [facility] | | | - LABORATORY | | | | + + + + + Sedimentation Rate (02/11/2012 2:54 PM PDT) + +--------+ + + + | Component | Value | Ref Range | Performed | Pathologist | | | | | At | Signature | + +--------+ + + + | Erythrocyte | 29 (H) | 0 - 20 mm/hr | [facility] | | | | | | ST[facility]nie [...] [address] | [place] | [phone] | | [facility] | | [address] | | | - LABORATORY | | | | + + + + + | [facility] [place]. | [address] | [place] | | | [facility] | | [address] | | | - LABORATORY | | | | + + + + + documented in this encounter Visit Diagnoses Not on filedocumented in this encounter"
--- OUTSIDE RECORDS SUMMARY | ~2020-06-03 | XMS | Encounter Summary ---
Demographics + + + | Address | [address] | | | [place] [address] | + + + | Home Phone [...] [place] | | | | | [address] | | + + + + + Care Team Providers + +------+ + | Care Excelsior Machine Feeder Name | Role | Phone | + [...] + | 02/18/ | Telephone | [facility] [place] | [place], | Other | | 2014 | | GASTROENTEROLOGY | KYRA Singer [address] | | | | | [address] [place] | [address] [place] [address] | | | | | [address] [place], [place] | [place], [place] | | | | | [address] | [address] | | | | | [phone] | | | +--------+ + + + [...] Humira. We will start the prior auth pr ocess. When it goes through, will want to [...] 2019 | Office | | [address] | | | | Visit | | [place], | | | | | | [place] [address] | | | | | | [phone] | | | | | | | | +--------+ + + + + | 07/09/ | Virtual | Gastroenterology | Osito Bowen | | | 2020 | Office | | MD Jonathan [address] | | | | Visit | | [place] [address] | | | | | | [phone] | | | | | | | | +--------+ + + + + documented as of this encounter Visit Diagnoses Not on filedocumented in this encounter"
--- OUTSIDE RECORDS SUMMARY | ~2020-06-03 | XMS | Encounter Summary ---
Demographics + + + | Address | [address] | | | [place] [address] | + + + | Home Phone [...] [place] | | | | | [address] | | + + + + + Care Team Providers + +------+ + | Care Assembler Dry Cell And Battery Name | Role | Phone | + [...] + + | 06/17/ | Telephone | [place] | [facility] | Lab Order | | 2015 | | GASTROENTEROLOGY | KYRA Singer [address] | | | | | [address] [place] | [address] [place] [address] | | | | | [address] [place], [place] | [place], [place] | | | | | [address] | [address] | | | | | [phone] | | | +--------+ + + + [...] Miscellaneous Notes Telephone Encounter - Graciela Narayanan Podiatry Doctor - 06/17/2016 3:19 PM PDTSent p atient [...] | | | | | | [place] [address] | | | | | | [phone] | | | | | | | | +--------+ + + + + | 07/09/ | Virtual | Gastroenterology | Osito Bowen | | | 2020 | Office | | MD Jonathan [address] | | | | Visit | | [place] [address] | | | | | | [phone] | | | | | | | [...]
--- OUTSIDE RECORDS SUMMARY | ~2020-06-03 | XMS | Encounter Summary ---
Demographics + + + | Address | [address] | | | [place] [address] | + + + | Home Phone [...] [place] | | | | | [address] | | + + + + + Care Team Providers + +------+ + | Care Test Carrier Name | Role | Phone | + [...] [address] | | | | | [address] [place], [place] | [place], [place] | | | | | [address] | [address] | | | | | [phone] | | | +--------+ + + + [...] Miscellaneous Notes Telephone Encounter - Graciela Narayanan, Card Writer Hand - 06/24/2016 1:51 PM PDTPatien t called [...] | | | | | | [place] [address] | | | | | | [phone] | | | | | | | | +--------+ + + + + | 07/09/ | Virtual | Gastroenterology | Osito Bowen | | 2019 | Office | | MD Jonathan [address] | | | | Visit | | [place] [address] | | | | | | [phone] | | | | | | | | +--------+ + + + + documented as of this encounter Visit Diagnoses Not on filedocumented in this encounter"
--- OUTSIDE RECORDS SUMMARY | ~2020-06-03 | XMS | Encounter Summary ---
Demographics + + + | Address | [address] | | | [place] [address] | + + + | Home Phone [...] + | Marilyn Diallo | ECON | [place] | | | | | [address] | | + + + + + Care Team Providers + +------+ + | Care Caisson Worker Name | Role | Phone | + +------+ + | Carlos Díaz NP | PCP | | + +------+ + Reason for Visit + +--------+ + | Reason | Onset | Comments | | | Date | | + +--------+ + | Gastroenterology | 07/17/ | reschedule 07/18 appointment | | Appointment | 2019 | | + +--------+ + Encounter Details +--------+ + + + + | Date | Type | Department | Care Team | Description | +--------+ + + + + | 07/17/ | Telephone | [facility] | Osito Bowen | Gastroenterology | | 2019 | | GASTROENTEROLOGY | MD Jonathan [address] | Appointment | | | | [address] | [place] [address] | (reschedule 07/18 | | | | [place], [place] | [phone] | appointment) | | | | [address] | | | | | | [phone] | | | +--------+ + + + [...] this encounter Miscellaneous Notes Telephone Encounter - Diane Graham - 07/17/2019 1:28 PM PDTReturned call, appt resche duled. elephone [place] - 07/17/2019 1:19 PM PDTKeri, is calling regarding Gastroenterology Dilip ointment (reschedule 07/18 appointment) and would like a call back. Additional Call Details: Reschedule 07/18 appointment, son has Dr appointment. If this is a symptom based call, was patient offered triage? Not Applicable If this is a symptom based call and you were unable to immediately transfer the call to a luna ventura fruit harvester machine operator was caller made aware that if at any time she feels it is an emergency they sh ould call 911 or go to the nearest emergency room? not applicable documented in this encounter Plan of Treatment [...] | | | | | | [place] [address] | | | | | | [phone] | | | | | | | | +--------+ + + + + | 07/09/ | Virtual | Gastroenterology | Osito Bowen | | | 2019 | Office | | MD Yenifer Castillo | | | | Visit | | [place] [address] | | | | | | [phone] | | | | | | | | +--------+ + + + + documented as of this encounter Visit Diagnoses Not on filedocumented in this encounter"
--- OUTSIDE RECORDS SUMMARY | ~2020-06-03 | XMS | Encounter Summary ---
Demographics + + + | Address | [address] | | | [place] [address] | + + + | Home Phone [...] + + + | Author | [facility] | | | and [place] | + + + | Organization | [facility] | | | and [place] | + + + | Address | Unknown | + + + | Phone | Unavailable | + + + Support + + + + + | Name | Relationship | Address | Phone | + + + + + | Marilyn Diallo | ECON | [place] | | | | | [address] | | + + + + + Care Team Providers + +------+ + | Care Polishing Machine Operator Name | Role | Phone [...] complications (HCC) | | | | [address] [place], [place] | [place], [place] | (Primary Dx) | | | | [address] | [address] | | | | | [phone] | | | +--------+ + + + [...] [place], | | | | | | [place] [address] | | | | | | [phone] | | | | | | | | +--------+ + + + + | 07/09/ | Virtual | Gastroenterology | Osito Bowen | | | 2019 | Office | | MD Jonathan [address] | | | | Visit | | [place] [address] | | | | | | [phone] | | | | | | | | +--------+ + + + + documented as of this encounter Visit Diagnoses + + | Diagnosis | + + | Ulcerative colitis, without complications - Primary | + + documented in this encounter"
--- OUTSIDE RECORDS SUMMARY | ~2020-06-03 | XMS | Encounter Summary ---
Demographics + + + | Address | [address] | | | [place] [address] | + + + | Home Phone [...] + | Marilny Diallo | ECON | [place] | | | | | [address] | | + + + + + Care Team Providers + +------+ + | Care Dental Office Receptionist Name | Role | Phone | + [...] | | remicade-wee | [place], | [address] | | | | | k [address] | SUPERVISOR COSTUMING [address] | [place], | | | | | Procedures | [address] | [place] [address] | | | | | [place] | [address] [address] | Phone: | | | | | INFLIXIMAB | [place], | [phone] | | | | | INJECTION, | [place] [address] | Fax: | | | | | 10 MG [place] IV | Phone: | [phone] | | | | | INFUSION, | [phone] | | | | | | THERAP/PROPH | Fax: | | | | | | /[place] | [phone] | | | | | | ITIAL,1ST [...] + + | 05/14/ | Hospital | [facility] | [facility], | Ulcerative colitis, | | 2013 | Encounter | MED CTR OP INFUSION | KYRA Singer [address] | with rectal bleeding | | | | [address] | [address] [place] [address] | ([facility]) (Primary Dx) | | | | [place], [place] | [place], [place] | | | | | [address] | [address] | | | | | [phone] | | | +--------+ + + + [...] 2019 | Office | | [address] | | | | Visit | | [place] | | | | | | [place] [address] | | | | | | [phone] | | | | | | | | +--------+ + + + + | 07/09/ | Virtual | Gastroenterology | Osito Bowen | | 2019 | Office | | MD Yenifer Castillo | | | | Visit | | [place] [address] | | | | | | [phone] | | | | | | | [...]
--- OUTSIDE RECORDS SUMMARY | ~2020-06-03 | XMS | Encounter Summary ---
Demographics + + + | Address | [address] | | | [place] [address] | + + + | Home Phone [...] | [place] | | | | | [address] | | + + + + + Care Team Providers + +------+ + | Care U.S. Revenue Officer Name | Role | Phone | [...] + + | 09/13/ | Refill | [facility] | Osito Bowen | Medication Refill | | 2018 | | GASTROENTEROLOGY | MD Jonathan [address] | | | | | [address] | [place] [address] | | | | | [place], [place] | [phone] | | | | | [address] | | | | | | [phone] | | | +--------+--------+ + + + [...] | | | | | | [place] [address] | | | | | | [phone] | | | | | | | | +--------+ + + + + | 07/09/ | Virtual | Gastroenterology | Osito Bowen | | 2019 | Office | | MD Jonathan [address] | | | | Visit | | [place] [address] | | | | | | [phone] | | | | | | | | +--------+ + + + + documented as of this encounter Visit Diagnoses Not on filedocumented in this encounter"
--- OUTSIDE RECORDS SUMMARY | ~2020-06-03 | XMS | Encounter Summary ---
Demographics + + + | Address | [address] | | | [place] [address] | + + + | Home Phone [...] Author + + + | Author | [facility] | | | and [place] | + + + | Organization | [facility] | | | and [place] | + + + | Address | Unknown | + + + | Phone | Unavailable | + + + Support + + + + + | Name | Relationship | Address | Phone | + + + + + | Marilyn Diallo | ECON | [place] | | | | | [address] | | + + + + + [...] | Refill | [facility] [place] | [facility], | Medication Refill | | 2013 | | GASTROENTEROLOGY | KYRA Singer [address] | | | | | [address] [place] | [address] [place] [address] | | | | | [address] [place], [place] | [place], [place] | | | | | [address] | [address] | | | | | [phone] | | | +--------+--------+ + + + [...] | | | | | | [place] [address] | | | | | | [phone] | | | | | | | | +--------+ + + + + | 07/09/ | Virtual | Gastroenterology | Osito Bowen | | | 2019 | Office | | MD Yenifer Castillo | | | | Visit | | [place] [address] | | | | | | [phone] | | | | | | | | +--------+ + + + + documented as of this encounter Visit Diagnoses Not on filedocumented in this encounter"
--- OUTSIDE RECORDS SUMMARY | ~2020-06-03 | XMS | Encounter Summary ---
Demographics + + + | Address | [address] | | | [place] [address] | + + + | Home Phone [...] [place] | | | | | [address] | | + + + + + Care Team Providers + +------+ + | Care Shotblast Operator Name | Role | Phone | [...] + + | 03/30/ | Refill | [facility] | [facility], | Medication Refill | | 2015 | | GASTROENTEROLOGY | KYRA Singer [address] | | | | | [address] [place] | [address] [place] [address] | | | | | [address] [place], [place] | [place] | | | | | [address] | [address] | | | | | [phone] | | | +--------+--------+ + + + [...] - 04/01/2016 11:20 AM PDTRefill for Brian liu ed; 03/11 office note from Danielle says to continue current regimen. On 03/18 all records were faxed to [facility] and they contacted patient for appointment. [...] | | | | | | [place] [address] | | | | | | [phone] | | | | | | | | +--------+ + + + + | 07/09/ | Virtual | Gastroenterology | Osito Bowen | | 2019 | Office | | MD Jonathan [address] | | | | Visit | | [place] [address] | | | | | | [phone] | | | | | | | | +--------+ + + + + documented as of this encounter Visit Diagnoses Not on filedocumented in this encounter"
--- OUTSIDE RECORDS SUMMARY | ~2020-06-03 | XMS | Encounter Summary ---
Demographics + + + | Address | [address] | | | [place] [address] | + + + | Home Phone [...] [place] | | | | | [address] | | + + + + + Care Team Providers + +------+ + | Care Sales & Service Associate Name | Role | Phone | + [...] + + | 07/06/ | Telephone | [facility] | [facility], | Other (asacol) | | 2012 | | GASTROENTEROLOGY | KYRA Singer [address] | | | | | [address] [place] | [address] [address] | | | | | [address] [place] | [place], [place] | | | | | [address] | [address] | | | | | [phone] | | | +--------+ + + + [...] 07/06/2013 12:42 PM PDTSpoke to patient, she marie d the asacol was never sent to [facility] [place]. Spoke to Danielle, she said to go [...] | | | | | | [place] [address] | | | | | | [phone] | | | | | | | | +--------+ + + + + | 07/09/ | Virtual | Gastroenterology | Osito Bowen | | 2019 | Office | | MD Jonathan [address] | | | | Visit | | [place] [address] | | | | | | [phone] | | | | | | | | +--------+ + + + + documented as of this encounter Visit Diagnoses Not on filedocumented in this encounter"
--- OUTSIDE RECORDS SUMMARY | ~2020-06-03 | XMS | Encounter Summary ---
Demographics + + + | Address | [address] | | | [place] [address] | + + + | Home Phone [...] [place] | | | | | [address] | | + + + + + Care Team Providers + +------+ + | Care Sharepoint Consultant Name | Role | Phone | [...] Specialty | Gastroenterol | Diagnoses | | [place], | | | Services | ogy | Ulcerative | [place], | Cipriano | | | Required | | colitis with | Lucre[place], | MD Bryon | | | | | | STOCK PULLER [address] | [address] | | | | | complication | [address] | [address] | | | | | , | [address] | [place], [place] | | | | | unspecified | [place], | [address] | | | | | location | [place] [address] | Phone: | | | | | ([facility]) | Phone: | [phone] | | | | | Anemia, | [phone] | Fax: | | | | | unspecified | Fax: | [phone] | | | | | | [phone] | | +--------+ + + + + [...] unspecified location | | | | [address] [place], [place] | [place], [place] | ([facility]) (Primary Dx); | | | | [address] | [address] | Anemia, unspecified | | | | [phone] | | | +--------+ + + + [...] - 03/11/2016 8:54 AM PDTEntered referral to [facility] for UC and anemia evaluation. [facility] does not accept Resonate's insurance--referral there closed. Spoke with Barbie at [facility], and she said to fax all records/demos to Referral depart ment at fax # [phone] once it has been authorized. Gela faxed [...] | | | | | | [place] [address] | | | | | | [phone] | | | | | | | | +--------+ + + + + | 07/09/ | Virtual | Gastroenterology | Osito Bowen | | | 2019 | Office | | MD Yenifer Castillo | | | | Visit | | [place] [address] | | | | | | [phone] | | | | | | | [...] | | ([facility]) Anemia, | | | | | | unspecified | | + + +--------+ + + documented as of this encounter Visit Diagnoses + + | Diagnosis | + + | Ulcerative colitis with complication, unspecified location ([facility]) - Primary | + + | Anemia, unspecified | + + documented in this encounter"
--- OUTSIDE RECORDS SUMMARY | ~2020-06-03 | XMS | Encounter Summary ---
Demographics + + + | Address | [address] | | | [place] [address] | + + + | Home Phone [...] [place] | | | | | [address] | | + + + + + Care Team Providers + +------+ + | Care Founder And Chief Executive Officer Name | Role | Phone | [...] [address] | | | | | [address] [place], [place] | [place], [place] | | | | | [address] | [address] | | | | | [phone] | | | +--------+ + + + [...] for her and will send them to [facility] in [place]. Patient verbalized understanding. (patient needs cbc,crp,esr) also [...] | | | | | | [place] [address] | | | | | | [phone] | | | | | | | | +--------+ + + + + | 07/09/ | Virtual | Gastroenterology | Osito Bowen | | | 2020 | Office | | MD Jonathan [address] | | | | Visit | | [place] [address] | | | | | | [phone] | | | | | | | [...]
--- OUTSIDE RECORDS SUMMARY | ~2020-06-03 | XMS | Encounter Summary ---
Demographics + + + | Address | [address] | | | [place] [address] | + + + | Home Phone [...] [place] | | | | | [address] | | + + + + + Care Team Providers + +------+ + | Care Endoscopy Registered Nurse Name | Role | Phone | + [...] + + | 12/12/ | Telephone | [facility] | [facility], | [facility] | | 2014 | | GASTROENTEROLOGY | KYRA Singer [address] | | | | | [address] | [address] | | | | | [address] [place], [place] | [place], [place] | | | | | [address] | [address] | | | | | [phone] | | | +--------+ + + + [...] Telephone Encounter - Graciela Narayanan Master of 3Leaf - 12/17/2014 11:56 AM PDTCalled cayden rendon [...] [place], | | | | | | [place] [address] | | | | | | [phone] | | | | | | | | +--------+ + + + + | 07/09/ | Virtual | Gastroenterology | Osito Bowen | | | 2019 | Office | | MD Jonathan [address] | | | | Visit | | [place] [address] | | | | | | [phone] | | | | | | | | +--------+ + + + + documented as of this encounter Visit Diagnoses Not on filedocumented in this encounter"
--- OUTSIDE RECORDS SUMMARY | ~2020-06-03 | XMS | Encounter Summary ---
Demographics + + + | Address | [address] | | | [place] [address] | + + + | Home Phone [...] [place] | | | | | [address] | | + + + + + Care Team Providers + +------+ + | Care Ocean Lifeguard Name | Role | Phone | + [...] | Refill | [address] [place] | [facility], | Medication Refill | | 2015 | | GASTROENTEROLOGY | KYRA Singer [address] | | | | | [address] | [address] | | | | | [address] [place], [place] | [place] | | | | | [address] | [address] | | | | | [phone] | | | +--------+--------+ + + + [...] | | | | | | [place] [address] | | | | | | [phone] | | | | | | | | +--------+ + + + + | 07/09/ | Virtual | Gastroenterology | Osito Bowen | | 2019 | Office | | MD Jonathan [address] | | | | Visit | | [place] [address] | | | | | | [phone] | | | | | | | | +--------+ + + + + documented as of this encounter Visit Diagnoses Not on filedocumented in this encounter"
--- OUTSIDE RECORDS SUMMARY | ~2020-06-03 | XMS | Encounter Summary ---
Demographics + + + | Address | [address] | | | [place] [address] | + + + | Home Phone [...] | [place] | | | | | [address] | | + + + + + Care Team Providers + +------+ + | Care Head Of Mobile Name | Role | Phone | + [...] + + | 07/19/ | Refill | [facility] | Cruz Gonzalez | Medication Refill | | 2019 | | GASTROENTEROLOGY | MD Timothy [address] | (Prednisone 10 mg) | | | | [address] | [address] [place] | | | | | [place] | [address] | | | | | [address] | | | | | | [phone] | | | +--------+--------+ + + + [...] Miscellaneous Notes Telephone Encounter - Cliff Bojorquez, Tire Mechanic - 07/25/2019 12:58 PM PDTPatient aware Rx sent. elep jagruti Encounter - Andrés, Osito Castillo MD - 07/25/2019 11:49 AM PDTSigned Electronically sign ed by Osito Bowen MD at 07/25/2019 11:49 AM PDTTelephone Encounter - Cliff Bojorquez, Tire Mechanic - 07/24/2019 2:50 PM PDTLast seen: 01/26/19 [...] | | | | | | [place] [address] | | | | | | [phone] | | | | | | | | +--------+ + + + + | 07/09/ | Virtual | Gastroenterology | Osito Bowen | | | 2019 | Office | | MD Jonathan [address] | | | | Visit | | [place] [address] | | | | | | [phone] | | | | | | | | +--------+ + + + + documented as of this encounter Visit Diagnoses Not on filedocumented in this encounter"
--- OUTSIDE RECORDS SUMMARY | ~2020-06-03 | XMS | Encounter Summary ---
Demographics + + + | Address | [address] | | | [place] [address] | + + + | Home Phone [...] + | Mrailyn Diallo | ECON | [place] | | | | | [address] | | + + + + + Care Team Providers + +------+ + | Care Well Head Pumper Name | Role | Phone | [...] + + | 04/30/ | Telephone | [facility] | [facility], | Medication Orders | | 2015 | | GASTROENTEROLOGY | KYRA Singer [address] | | | | | [address] | [address] [facility] [address] | | | | | [address] [place], [place] | [place] | | | | | [address] | [address] | | | | | [phone] | | | +--------+ + + + [...] Rocio [place] - 04/30/2016 3: 38 [facility], stating that they cannot ge t a hold of the patient so the order for the patient is going to be put on hold. Prior auth will be expiring . If needed they can be reached at [phone].Electronically si gned by Rocio Woods at 04/30/2016 [...] | | | | | | [place] [address] | | | | | | [phone] | | | | | | | | +--------+ + + + + | 07/09/ | Virtual | Gastroenterology | Osito Bowen | | | 2019 | Office | | MD Jonathan [address] | | | | Visit | | [place] [address] | | | | | | [phone] | | | | | | | | +--------+ + + + + documented as of this encounter Visit Diagnoses Not on filedocumented in this encounter"
--- OUTSIDE RECORDS SUMMARY | ~2020-06-03 | XMS | Encounter Summary ---
Demographics + + + | Address | [address] | | | [place] [address] | + + + | Home Phone [...] [place] | | | | | [address] | | + + + + + Care Team Providers + +------+ + | Care Case Supervisor Name | Role | Phone | [...] | 04/28/ | Refill | [address] | [facility], | Medication Refill | | 2015 | | GASTROENTEROLOGY | KYRA Singer [address] | | | | | [address] | [address] | | | | | [address] [place], [place] | [place] | | | | | [address] | [address] | | | | | [phone] | | | +--------+--------+ + + + [...] | | | | | | [place] [address] | | | | | | [phone] | | | | | | | | +--------+ + + + + | 07/09/ | Virtual | Gastroenterology | Osito Bowen | | 2019 | Office | | MD Jonathan [address] | | | | Visit | | [place] [address] | | | | | | [phone] | | | | | | | | +--------+ + + + + documented as of this encounter Visit Diagnoses Not on filedocumented in this encounter"
--- OUTSIDE RECORDS SUMMARY | ~2020-06-03 | XMS | Encounter Summary ---
Demographics + + + | Address | [address] | | | [place] [address] | + + + | Home Phone [...] | [place] | | | | | [address] | | + + + + + Care Team Providers + +------+ + | Care Bottom Sander Name | Role | Phone | + +------+ + | Lilliana Wheeler | PCP | | | [employer] MACHINE OPERATOR | | | + +------+ + Reason for Visit +--------+--------+ + | Reason | Onset | Comments | | | Date | | +--------+--------+ + | Other | 11/29/ | Prior authorization | | | 2013 | | +--------+--------+ + Encounter Details +--------+ + + + + | Date | Type | Department | Care Team | Description | +--------+ + + + + | 11/29/ | Telephone | PM [place] | [facility], | Other (Prior | | 2013 | | GASTROENTEROLOGY | KYRA Singer [address] | authorization) | | | | [address] [place] | [address] | | | | | [address] [place] | [place] | | | | | [address] | [address] | | | | | [phone] | | | +--------+ + + + [...] - Graciela Narayanan Master of Arts - 11/29/2013 12:00 PM PSTSent auth orization for Asacol to R[facility]irstin [facility]. It has been approved from November 23, 2013 unt il November 23, 2014. Called patient to let her know. documented in this encounter Plan of Treatment +--------+ + + + + | Date | Type | Specialty | Care Team | Description | +--------+ + + + + | 06/04/ | Virtual | Gastroenterology | Natalie, | | | 2019 | Office | | [address] | | | | Visit | | [place] | | | | | | [place] [address] | | | | | | [phone] | | | | | | | | +--------+ + + + + | 07/09/ | Virtual | Gastroenterology | Osito Bowen | | 2019 | Office | | MD Jonathan [address] | | | | Visit | | [place] [address] | | | | | | [phone] | | | | | | | | +--------+ + + + + documented as of this encounter Visit Diagnoses Not on filedocumented in this encounter"
--- OUTSIDE RECORDS SUMMARY | ~2020-06-03 | XMS | Encounter Summary ---
Demographics + + + | Address | [address] | | | [place] [address] | + + + | Home Phone | | + + + | Preferred Language | Unknown | + + + | Marital Status | Single | + + + | Advent Affiliation | 1013 | + + + | Race | White | + + + | Ethnic Group | Not or | + + + Author + + + | Author | [facility] | | | and [place] | + + + | Organization | [facility] | | | and [place] | + + + | Address | Unknown | + + + | Phone | Unavailable | + + + Support + + + + + | Name | Relationship | Address | Phone | + + + + + | Marilyn Diallo | ECON | [place] | | | | | [address] | | + + + + + Care Team Providers + +------+ + | Care Commodity Director Name | Role | Phone | [...] other complication | | | | [address] [place], [place] | [place], [place] | ([facility]) | | | | [address] | [address] | | | | | [phone] | | | +--------+ + + + [...] [place], | | | | | | [place] [address] | | | | | | [phone] | | | | | | | | +--------+ + + + + | 07/09/ | Virtual | Gastroenterology | Osito Bowen | | | 2019 | Office | | MD Jonathan [address] | | | | Visit | | [place] [address] | | | | | | [phone] | | | | | | | | +--------+ + + + + documented as of this encounter Visit Diagnoses + + | Diagnosis | + + | Ulcerative colitis, unspecified with other complication (HCC) | + + documented in this encounter"
--- OUTSIDE RECORDS SUMMARY | ~2020-06-03 | XMS | Encounter Summary ---
Demographics + + + | Address | [address] | | | [place] [address] | + + + | Home Phone [...] | [place] | | | | | [address] | | + + + + + Care Team Providers + +------+ + | Care Regional Guide Name | Role | Phone | + [...] Description | +--------+--------+ + + + | 04/25/ | Refill | [facility] [place] | [facility], | Medication Refill | | 2013 | | GASTROENTEROLOGY | KYRA Singer [address] | | | | | [address] [place] | [address] | | | | | [address] [place], [place] | [place], [place] | | | | | [address] | [address] | | | | | [phone] | | | +--------+--------+ + + + [...] | | | | | | [place] [address] | | | | | | [phone] | | | | | | | | +--------+ + + + + | 07/09/ | Virtual | Gastroenterology | Osito Bowen | | | 2019 | Office | | MD Jonathan [address] | | | | Visit | | [place] [address] | | | | | | [phone] | | | | | | | | +--------+ + + + + documented as of this encounter Visit Diagnoses Not on filedocumented in this encounter"
--- OUTSIDE RECORDS SUMMARY | ~2020-06-03 | XMS | Clinical Summary ---
Demographics + + + | Address | [address] | | | [place] [address] | + + + | Home Phone | | + + + | Preferred Language | Unknown | + + + | Marital Status | Unknown | + + + | Advent Affiliation | Unknown | + + + | Race | Unknown | + + + | Ethnic Group | Unknown | + + + Author + + + | Author | [facility] | + + + | Organization | [facility] | + + + | Address | Unknown | + + + | Phone | Unavailable | + + + Care Team Providers + +------+ + | Care Dater Assembler Name | Role | Phone | + +------+ + PCP | Unavailable | + +------+ + Source Comments ION is fully live on both [facility] Ambulatory and [facility] InPatient.[facility] Allergies Not on File Medications Not on [...]
--- OUTSIDE RECORDS SUMMARY | ~2020-06-03 | XMS | Encounter Summary ---
Demographics + + + | Address | [address] | | | [place] [address] | + + + | Home Phone | | + + + | Preferred Language | Unknown | + + + | Marital Status | Unknown | + + + | Church Affiliation | Unknown | + + + | Race | Unknown | + + + | Ethnic Group | Unknown | + + + Author + + + | Author | [facility] | + + + | Organization | [facility] | + + + | Address | Unknown | + + + | Phone | Unavailable | + + + Care Team Providers + +------+ + | Care Sample Shoe Inspector And Reworker Name | Role | Phone | + +------+ + PCP | Unavailable | + +------+ + Encounter Details +--------+ + + + + | Date | Type | Department | Care Team | Description | +--------+ + + + + | 11/09/ | Abstract | [facility] | Clinic, | | | 2018 | | Center at [facility] [address] | Gastroenterology | | | | | [facility] | | | | | | for Health and | | | | | | Healing, [address] | | | | | | [place], [place] | | | | | | [address] | | | | | | [phone] | | | +--------+ + + + [...]
--- OUTSIDE RECORDS SUMMARY | ~2020-06-03 | XMS | Encounter Summary ---
Demographics + + + | Address | [address] | | | [place] [address] | + + + | Home Phone [...] | [place] | | | | | [address] | | + + + + + Care Team Providers + +------+ + | Care Facing Slitter Name | Role | Phone | + [...] | | colitis | Lucrecia, | [address] | | | | | Procedures | CASTING MACHINE OPERATOR HELPER [address] | [place], | | | | | [place] | [address] | [place] [address] | | | | | INFUSION, | [address] | Phone: | | | | | THERAP/PROPH | [place], | [phone] | | | | | /[place] | [place] [address] | Fax: | | | | | ITIAL,1ST | Phone: | [phone] | | | | | [place] | [phone] | | | | | | INFLIXIMAB | Fax: | | | | | | INJECTION, | [phone] | | | | | | 10 MG WSM | | | | | | | OP INF | | | | | | | REMICADE | | | +--------+--------+ + + + + Encounter Details +--------+ + + + + | Date | Type | Department | Care Team | Description | +--------+ + + + + | 02/11/ | Hospital | [facility] | [facility], | Ulcerative colitis, | | 2015 | Encounter | MED CTR OP INFUSION | KYRA Singer [address] | unspecified | | | | [address] | [address] | complication (HCC) | | | | [place], [place] | [place], [place] | (Primary Dx) | | | | [address] | [address] | | | | | [phone] | | | +--------+ + + + [...] 2019 | Office | | [address] | | | | Visit | | [place], | | | | | | [place] [address] | | | | | | [phone] | | | | | | | | +--------+ + + + + | 07/09/ | Virtual | Gastroenterology | Osito Bowen | | | 2019 | Office | | MD Jonathan [address] | | | | Visit | | [place] [address] | | | | | | [phone] | | | | | | | | +--------+ + + + + documented as of this encounter Visit Diagnoses + + | Diagnosis | + + | Ulcerative colitis, unspecified complication - Primary | + + documented in this encounter"
--- OUTSIDE RECORDS SUMMARY | ~2020-06-03 | XMS | Encounter Summary ---
Demographics + + + | Address | [address] | | | [place] [address] | + + + | Home Phone [...] | [place] | | | | | [address] | | + + + + + Care Team Providers + +------+ + | Care Machine Pecan Picker Name | Role | Phone | + [...] | 12/10/ | Refill | [facility] [place] | Edd [facility]st, | Medication Refill | | 2014 | | GASTROENTEROLOGY | MD [address] | | | | | [address] [place] | [address] [place], | | | | | [address] [place], [place] | [place] [address] | | | | | [address] | [phone] | | | | | [phone] | | | +--------+--------+ + + + [...] | | | | | | [place] [address] | | | | | | [phone] | | | | | | | | +--------+ + + + + | 07/09/ | Virtual | Gastroenterology | Osito Bowen | | | 2019 | Office | | MD Jonathan [address] | | | | Visit | | [place] [address] | | | | | | [phone] | | | | | | | | +--------+ + + + + documented as of this encounter Visit Diagnoses Not on filedocumented in this encounter"
--- OUTSIDE RECORDS SUMMARY | ~2020-06-03 | XMS | Encounter Summary ---
Demographics + + + | Address | [address] | | | [place] [address] | + + + | Home Phone [...] [place] | | | | | [address] | | + + + + + Care Team Providers + +------+ + | Care Livestock Counter Name | Role | Phone | + [...] | | | | | complication | [address] | | | | | | ([facility]) | Phone: | | | | | | Procedures | [phone] | | | | | | 03/10>PEND | Fax: | | | | | | REPLY FROM | [phone] | | | | | | PROVIDER [...] | | | / | colitis, | HOUSING QUALITY STANDARD INSPECTOR [address] | MANAGER CONTRACT [address] | | | | Gastroenterol | unspecified, | [place] | [address] | | | | ogy | without | [address], | [address] | | | | | complication | [address] | [place], | | | | | s ([facility]) | [place], | [place] [address] | | | | | Follow up | [place] [address] | Phone: | | | | | per | Phone: | [phone] | | | | | Gela/self/E | [phone] | Fax: | | | | | SERGIOO/Jimbo | Fax: | [phone] | | | | | r | [phone] | | | | | | Procedures | | | | | | | OFFICE VISIT | | | | | | | REGULAR | | | +--------+--------+ + + + + Encounter Details +--------+---------+ + + + | Date | Type | Department | Care Team | Description | +--------+---------+ + + + | 03/10/ | Office | [facility] | [facility], | Ulcerative colitis, | | 2016 | Visit | GASTROENTEROLOGY | KYRA Singer [address] | unspecified with | | | | [address] [place] | [address] | other complication | | | | [address] [place], [place] | [place], [place] | ([facility]) (Primary Dx) | | | | [address] | [address] | | | | | [phone] | | | +--------+---------+ + + + [...] - 03/10/2016 12:27 PM PDTReferral entered [facility]. Will send records once approved. [facility] CenterclintonLucrecia, MANAGER CONTRACT - 03/10/2016 11:57 AM PDTFormatt ing of this note might be different from the original. Ria Hastings is a 36 y.o. female here for followup ulcerative colitis. History of present illness: She feels like Humira is helping some. For the first 4-5 days after injection she has 3-4 B M with the majority loose or watery. After the 5th day, she will increase back to having BM up to 10 times per day. She is not having any blood in stool. Is complaining of right knee pain. Is scheduled to see rheumatology in [place] in about 4 wee ks. Had been [...] Laterality: N/A; Surgeon: Aris Schmid MD; Location: [facility] PROCE DURE UNIT Colonoscopy N/A 11/27/2014 Procedure: COLONOSCOPY; Surgeon: Aris Schmid MD; Location: [facility] PROCEDURE UNI T Sigmoid colon bx [...] like to have referral to GI in [place] for additional options for her ulcerative colitis. [...] Nutrition: Do to our climate in the [facility], recommend periodic vitamin D testin g I [...] | 06/04/ | Virtual | Gastroenterology | Natalie | | | 2019 | Office | | [address] | | | | Visit | | [place] | | | | | | [place] [address] | | | | | | [phone] | | | | | | | | +--------+ + + + + | 07/09/ | Virtual | Gastroenterology | Osito Bowen | | | 2019 | Office | | MD Jonathan [address] | | | | Visit | | [place] [address] | | | | | | [phone] | | | | | | | [...] [address] | [place] | [phone] | | [facility] | | [address] | | | - LABORATORY | | [...] + | [address] | [address] | [place] | [phone] | | [facility] | | [address] | | | - LABORATORY | | [...] [address] | [place] | [phone] | | [facility] | | [address] | | | - LABORATORY | | | | + + + + + documented in this encounter Visit Diagnoses + + | Diagnosis | + + | Ulcerative colitis, unspecified with other complication (HCC) - Primary | + + documented in this encounter
--- OUTSIDE RECORDS SUMMARY | ~2020-06-03 | XMS | Encounter Summary ---
Demographics + + + | Address | [address] | | | [place] [address] | + + + | Home Phone [...] [place] | | | | | [address] | | + + + + + Care Team Providers + +------+ + | Care Senior Piping Designer Name | Role | Phone | [...] [address] | | | | | [address] [place], [place] | [place], [place] | | | | | [address] | [address] | | | | | [phone] | | | +--------+ + + + [...] 2019 | Office | | [address] | | | | Visit | | [place], | | | | | | [place] [address] | | | | | | [phone] | | | | | | | | +--------+ + + + + | 07/09/ | Virtual | Gastroenterology | Osito Bowen | | | 2019 | Office | | MD Jonathan [address] | | | | Visit | | [place] [address] | | | | | | [phone] | | | | | | | | +--------+ + + + + documented as of this encounter Visit Diagnoses Not on filedocumented in this encounter"
--- OUTSIDE RECORDS SUMMARY | ~2020-06-03 | XMS | Clinical Summary ---
Demographics + + + | Address | [address] | | | [place] [address] | + + + | Home Phone [...] [place] | | | | | [address] | | + + + + + Care Team Providers + +------+ + | Care Cna Per Diem Name | Role | Phone | + +------+ + | Carlos Díaz NP | PCP | | + +------+ + Allergies + [...] under | 2 kit | 2 | 07/1 | | Activ | | PEN) 40 mg/0.8 mL | the skin every 14 | | | 9/20 | | e | | injection (pen) | days. | | | 16 | | | + + + +---------+------+------+-------+ | predniSONE | take 1 and 10/12 | 45 | 1 | | | Activ | | (DELTASONE) 10 mg | tablets by mouth | tablet | | 10/30 | | e | | tablet | once daily | | | 20 | | | + + + +---------+------+------+-------+ Active Problems + + + | Problem | Noted Date | + + + | Ulcerative colitis with rectal bleeding | 01/03/2019 | + + + + + | Overview: Added automatically from request for surgery [id number] | + + + + + | [...] COLITIS | 12/15/2010 | + + + Encounters +--------+ + + + + | Date | Type | Specialty | Care Team | Description | +--------+ + + + + | 05/22/ | Telephone | [facility] | Osito Bowen | Other | | 2019 | | | MD Jonathan | | +--------+ + + + + | 05/21/ | Refill | [facility] | Osito Bowen | Medication Refill | | 2019 | | | MD Jonathan | | +--------+ + + + + | 03/07/ | Refill | Osito Field | Medication Refill | | 2019 | | | MD Jonathan | | +--------+ + + + + from Last 3 Months Immunizations + + + + | Name | Administration Dates | Next Due | + + + [...] | | + + +------+ + | Ulcerative [...] + | Blood Pressure | 110/62 | 01/27/2019 9:20 AM | | | | | PDT | | + + + + + | Pulse | 88 | 01/27/2019 9:20 AM | | | | | PDT | | + + + + + | Temperature | 36.4 C (97.6 F) | 01/27/2019 9:20 AM | | | | | PDT | | + + + + + | Respiratory Rate | 20 | 01/27/2019 9:20 AM | | | | | PDT [...] Weight | 82.6 kg (182 lb) | 01/27/2019 9:20 AM | | | | | PDT | | + + + + + | Height | 160 cm (5' 3") | 01/27/2019 9:20 AM | | | | | PDT | | + + + + + | Body Mass Index | 32.24 | 01/27/2019 9:20 AM | | | | | PDT | | + + + + + Plan of Treatment [...] | | | | | | [place] [address] | | | | | | [phone] | | | | | | | | +--------+ + + + + | 07/09/ | Virtual | Gastroenterology | Osito Bowen | | | 2019 | Office | | MD Jonathan [address] | | | | Visit | | [place] [address] | | | | | | [phone] | | | | | | | | +--------+ + + + + + + + + + | Health Maintenance | Due Date | Last | Comments | | | | Done | | + + + + + | Hepatitis C | | | | | Screening | 2 | | | + + + + + | Medication | | | | | Management | 2 | | | + + + + + | Vaccine: | | 01/10/19 | | | Dtap/Tdap/Td (6 - | 3 | 99, | | | Tdap) | | 05/28/19 | | | | | 87, | | | | | 01/11/19 | | | | | 84, | | | | | Addition | | | | | al | | | | | history | | | | | exists | | + + + + + | Cervical Cancer | | | | | Screening (Pap) | 2 | | | + + + + + | Med Mgmt: HCT | | 03/10/20 | | | | 7 | 16, | | | | | 07/02/20 | | | | | 15, | | | | | 07/02/20 | | | | | 15, | | | | | Addition | | | | | al | | | | | history | | | | | exists | | + + + + + | Med Mgmt: HGB | | 03/10/20 | | | | 7 | 16, | | | | | 07/02/20 | | | | | 15, | | | | | 07/02/20 | | | | | 15, | | | | | Addition | | | | | al | | | | | history | | | | | exists | | + + + + + | Med Mgmt: PLT | | 03/10/20 | | | | 7 | 16, | | | | | 07/02/20 | | | | | 15, | | | | | 07/02/20 | | | | | 15, | | | | | Addition | | | | | al | | | | | history | | | | | exists | | + + + + + | Med Mgmt: WBC | | 03/10/20 | | | | 7 | 16, | | | | | 07/02/20 | | | | | 15, | | | | | 07/02/20 | | | | | 15, | | | | | Addition | | | | | al | | | | | history | | | | | exists | | + + + + + | Vaccine: Influenza | | | | | (#1) | 0 | | | + + + + [...] | [employer] | MODA | [id number] | 11/13/19 | [phone] | | Medica | | MEDICAID HMO | HEALTH | | 14-Pre | 1 | | id | | | MDCD | | sent | | | | | | HMO OR | | | | | | + +--------+ +--------+ +---------+--------+ | [employer] | [employer] | [id number] | | [phone] | | Medica | | MEDICAID HMO | HEALTH | | 019-Pr | 1 | | id | | | MDCD | | esent | | | | | | HMO [...] Person | Self | [birth year] | [address] | | | al/Fam | | 1980 | [phone] | [place] | | | lucia | | | 4 (Home) | [address] | | | | | | [phone] | | | | | | | 1 (Work) | | + +--------+ +--------+ + + | Ria Hastings | Person | Self | [birth year] | | [address] | | | al/Fam | | 1980 | [phone] | [place] | | | [place] | | | 4 (Home) | [address] | + +--------+ +--------+ + + Advance Directives + + + + + | Type | Date Recorded | Patient | Explanation | | | | Liability Analyst | | + + + + + | Power of | | | | | Marketing Ambassador | | | | + + + + + | Advance | 11/27/2014 8:47 | | | | Directive | AM | | | + + + + +
--- OUTSIDE RECORDS SUMMARY | ~2020-06-03 | XMS | Encounter Summary ---
Demographics + + + | Address | [address] | | | [place] [address] | + + + | Home Phone [...] Author + + + | Author | [facility] | | | and [place] | + + + | Organization | [facility] | | | and [place] | + + + | Address | Unknown | + + + | Phone | Unavailable | + + + Support + + + + + | Name | Relationship | Address | Phone | + + + + + | Marilyn Diallo | ECON | [place] | | | | | [address] | | + + + + + Care Team Providers + +------+ + | Care Retail Customer Service Specialist Name | Role | Phone | + +------+ + PCP | Unavailable | + +------+ + Encounter Details +--------+ + + + + | Date | Type | Department | Care Team | Description | +--------+ + + + + | 05/25/ | Hospital | [facility] | [facility], | | | 2010 | Encounter | [facility] LAB[facility]ORY | KYRA Singer [address] | | | | | [address] [place] | [address] | | | | | [place], [place] | [place], [place] | | | | | [address] | [address] | | | | | [phone] | | | +--------+ + + + [...] | | | | | | [place] [address] | | | | | | [phone] | | | | | | | | +--------+ + + + + | 07/09/ | Virtual | Gastroenterology | Osito Bowen | | 2019 | Office | | MD Jonathan [address] | | | | Visit | | [place] [address] | | | | | | [phone] | | | | | | | [...] + | [facility] | [address] | [place] | [phone] | | [facility] | | [address] | | | - LABORATORY | | | | + + + + + | [facility] | [address] | [place], [place] | | | [facility] | | [address], [facility] | | | - LABORATORY [...] + | [facility] | [address] | [place] | [phone] | | [facility] | | [address] | | | - LABORATORY | | | | + + + + + | [facility] | [address] | [place] | | | [facility] | | [address] [place] [address] | | | - LABORATORY | | [...] + | [facility] | [address] | [place] | [phone] | | [facility] | | [address] | | | - LABORATORY | | | | + + + + + | [facility] | [address] | [place] | | | [facility] | | [id number] [place] [address] | | | - LABORATORY | | | | + + + + + documented in this encounter Visit Diagnoses Not on filedocumented in this encounter"
--- OUTSIDE RECORDS SUMMARY | ~2020-06-03 | XMS | Encounter Summary ---
Demographics + + + | Address | [address] | | | [place] [address] | + + + | Home Phone [...] [place] | | | | | [address] | | + + + + + Care Team Providers + +------+ + | Care Emt Name | Role | Phone | + [...] + + | 11/06/ | Refill | [facility] | Osito Bowen | Medication Refill | | 2020 | | GASTROENTEROLOGY | MD Jonathan [address] | | | | | [address] | [place] [address] | | | | | [place], [place] | [phone] | | | | | [address] | | | | | | [phone] | | | +--------+--------+ + + + [...] Miscellaneous Notes Telephone Encounter - Magdi Lucio, Toolroom Attendant - [facility]. Medication:Prednisone Dosage: 10 mg tab Frequency: Take 1 & 1/2 tablets by mouth once daily Last office visit:01/03/2019 Last refill:09/13/2019 Next f/u:N/A Dr. Bowen, please review & refill if appropriate. Thank you, Chioc ele phone Encounter - Karma Sanz - 11/06/2019 4:04 PM PST[address]: [facility] Lanie maribel Rollins, is calling [...] 2019 | Office | | [address] | | | | Visit | | [place], | | | | | | [place] [address] | | | | | | [phone] | | | | | | | | +--------+ + + + + | 07/09/ | Virtual | Gastroenterology | Osito Bowen | | | 2019 | Office | | MD Jonathan [address] | | | | Visit | | [place] [address] | | | | | | [phone] | | | | | | | | +--------+ + + + + documented as of this encounter Visit Diagnoses Not on filedocumented in this encounter"
--- OUTSIDE RECORDS SUMMARY | ~2020-06-03 | XMS | Encounter Summary ---
Demographics + + + | Address | [address] | | | [place] [address] | + + + | Home Phone [...] [place] | | | | | [address] | | + + + + + Care Team Providers + +------+ + | Care Transportation Lead Name | Role | Phone | [...] | | | | | [address] | [place], [place] | | | | | [place] | [address] | | | | | [address] | [phone] | | | | | [phone] | | | +--------+---------+ + + + [...] the physician who did your procedure at [phone] if you have any questions or experience any of the following: ? Increasing abdominal pain, nausea, or vomiting. ? Chills and fever over 101F. ? New abdominal swelling or bloating. ? Signs of rectal bleeding (black or red stool. If you cannot get a hold of your physician, then call the [facility] [phone] . If necessary, report to the Emergency Department at [facility]. Quit smoking: If you smoke or [...] Surgeon: Aris Schmid MD; Location: [facility] Family History Problem Relation Age of Onset [...] | | | | | | [place] [address] | | | | | | [phone] | | | | | | | | +--------+ + + + + | 07/09/ | Virtual | Gastroenterology | Osito Bowen | | | 2019 | Office | | MD Jonathan [address] | | | | Visit | | [place] [address] | | | | | | [phone] | | | | | | | [...] comorbidity) | | | | | | ([facility]) | | + +--------+ + + + [...] 11/27/2014 | [facility] | | 11:01 AMMRN: [id number] #: [id number] of : | | | 1980Admit Type: AmbulatoryAge: 34Room: [facility] 02Gender: FemaleNote | | | Status: FinalizedAttending MD: Aris Schmid, [facility]cedure: | | | ColonoscopyIndications: Diarrhea, | | [...] the nurse | | | and the wind technician in the pre-procedure area in the [...] AMScope | | | Out: 11:32:52 AM [facility], [address] | | | [place] [address] | | | - Continue present medications. [...] |Scope Out: 11:32:52 AM | | | [facility], [address] [facility], [place], [place] | | | [address] | | + + -+ + +---------+ [...] + + | [facility] | [address] | [place], [place] | [phone] | | [facility] | | [address] | | | LABORATORY | | | [...]
--- OUTSIDE RECORDS SUMMARY | ~2020-06-03 | XMS | Encounter Summary ---
Demographics + + + | Address | [address] | | | [place] [address] | + + + | Home Phone [...] Author + + + | Author | [facility] | | | and [place] | + + + | Organization | [facility] | | | and [place] | + + + | Address | Unknown | + + + | Phone | Unavailable | + + + Support + + + + + | Name | Relationship | Address | Phone | + + + + + | Marilyn Diallo | ECON | [place] | | | | | [address] | | + + + + + Care Team Providers + +------+ + | Care Fisher Diving Name | Role | Phone | + [...] + + | 06/26/ | Telephone | [facility] | [facility], | Appointment | | 2012 | | GASTROENTEROLOGY | KYRA Singer [address] | | | | | [address] | [address] | | | | | [address] [place], [place] | [place], [place] | | | | | [address] | [address] | | | | | [phone] | | | +--------+ + + + [...] | | | | | | [place] [address] | | | | | | [phone] | | | | | | | | +--------+ + + + + | 07/09/ | Virtual | Gastroenterology | Osito Bowen | | | 2019 | Office | | MD Yenifer Castillo | | | | Visit | | [place] [address] | | | | | | [phone] | | | | | | | | +--------+ + + + + documented as of this encounter Visit Diagnoses Not on filedocumented in this encounter"
--- OUTSIDE RECORDS SUMMARY | ~2020-06-03 | XMS | Encounter Summary ---
Demographics + + + | Address | [address] | | | [place] [address] | + + + | Home Phone [...] Author + + + | Author | [facility] | | | and [place] | + + + | Organization | [facility] | | | and [place] | + + + | Address | Unknown | + + + | Phone | Unavailable | + + + Support + + + + + | Name | Relationship | Address | Phone | + + + + + | Marilyn Diallo | ECON | [place] | | | | | [address] | | + + + + + Care Team Providers + +------+ + | Care Drill Sergeant Name | Role | Phone | + [...] + + | 08/08/ | Telephone | [facility] | Edd Hurst, | Other (reminder to | | 2013 | | GASTROENTEROLOGY | MD [address] | have bloodwork | | | | [address] | [address] [place], | drawn) | | | | [address] [place] | [place] [address] | | | | | [address] | [phone] | | | | | [phone] | | | +--------+ + + + [...] drawn orders were sent last week to [facility] [place] documented in th is encounter Plan of Treatment +--------+ + + + + | Date | Type | Specialty | Care Team | Description | +--------+ + + + + | 06/04/ | Virtual | Gastroenterology | Natalie, | | | 2019 | Office | | [address] | | | | Visit | | [place] | | | | | | [place] [address] | | | | | | [phone] | | | | | | | | +--------+ + + + + | 07/09/ | Virtual | Gastroenterology | Osito Bowen | | 2019 | Office | | MD Jonathan [address] | | | | Visit | | [place] [address] | | | | | | [phone] | | | | | | | | +--------+ + + + + documented as of this encounter Visit Diagnoses Not on filedocumented in this encounter"
--- OUTSIDE RECORDS SUMMARY | ~2020-06-03 | XMS | Encounter Summary ---
Demographics + + + | Address | [address] | | | [place] [address] | + + + | Home Phone [...] [place] | | | | | [address] | | + + + + + Care Team Providers + +------+ + | Care Composition Siding Worker Name | Role | Phone | [...] + + | 05/22/ | Telephone | [facility] | Osito Bowen | Other | | 2020 | | GASTROENTEROLOGY | MD Jonathan [address] | | | | | [address] | [place] [address] | | | | | [place], [place] | [phone] | | | | | [address] | | | | | | [phone] | | | +--------+ + + + [...] Miscellaneous Notes Telephone Encounter - Josefina Olmos, Tank Builder - 05/23/2020 11:39 AM PDTForm atting of [...] 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 Patient stat es "then why has Dr. [...] if she desires. Patient was transferred to [facility] to schedule f/u wi th BINGO CHECKER sooner. Thanks mvd Telephone Encounter - Graciela Narayanan CMA - 05/11/2018 0851 PDT Left message for patient that Danielle thinks she should continue her care in [place] due to her non compliance with our [...] 12, 2019 Me Spoke to Destiny from [facility] insurance, she stated that she spoke to [...] infusion setting. elephone Encounter - Shelia Tuttle Tank Builder - 05/23/2020 11:30 AM PDTPatient c davidd back and I relayed the message to her from Dr. Bowen and got her scheduled for Zo om apt. P DTTelephone Encounter - Josefina Olmos Tank Builder - 05/23/2020 10:16 AM PDTCal led pt to inform her of msg. No answer vm left for pt to call back. Patient needs a f/u appm t. No refill at this time. Thanks mvd elephone Encounter - Osito Bowen MD - 05/23/20 9:50 AM PDTShe has not been seen in clinic in well over a year. Set up clinic visit. P rednisone is not a long-term medication and refill will not be given at this time.Electronic ally signed by Osito Bowen MD at 05/23/2020 9:51 AM PDTTelephone Encounter - Ayah Castillo Tank Builder - 05/22/2020 4:21 PM PDTPatient called in and requested anot her Dr to refill her medication. Send refill request to [facility] elephone Encounter - Josefina Olmos Medic al [employer] - 05/22/2020 11:46 AM PDTPatient was informed that Dr. Bowen is on vacatio n and that he would refill if able to when he came back to work. Patient verbalized understa nding. Thanks mvd Electronically signed by Marge Purdy Assistant at 020 11:47 AM PDTTelephone Encounter - Josefina Olmos Tank Builder - 05/22/2020 1 1:46 AM PDT----- Message from Marge Singh Assistant sent at 05/21/2020 1:29 PM P DT [...] | | | | | | [place] [address] | | | | | | [phone] | | | | | | | | +--------+ + + + + | 07/09/ | Virtual | Gastroenterology | Osito Bowen | | | 2020 | Office | | MD Jonathan [address] | | | | Visit | | [place] [address] | | | | | | [phone] | | | | | | | | +--------+ + + + + documented as of this encounter Visit Diagnoses Not on filedocumented in this encounter
--- OUTSIDE RECORDS SUMMARY | ~2020-06-03 | XMS | Encounter Summary ---
Demographics + + + | Address | [address] | | | [place] [address] | + + + | Home Phone [...] [place] | | | | | [address] | | + + + + + Care Team Providers + +------+ + | Care Bellperson Name | Role | Phone | + [...] + + | 05/08/ | Telephone | [facility] | [facility], | Other (needs appt | | 2013 | | GASTROENTEROLOGY | KYRA [address] | after induction dose | | | | [address] | [address] | of remicade) | | | | [address] [place] | [place] | | | | | [address] | [address] | | | | | [phone] | | | +--------+ + + + [...] 2019 | Office | | [address] | | | | Visit | | [place] | | | | | | [place] [address] | | | | | | [phone] | | | | | | | | +--------+ + + + + | 07/09/ | Virtual | Gastroenterology | Osito Bowen | | | 2019 | Office | | MD Jonathan [address] | | | | Visit | | [place] [address] | | | | | | [phone] | | | | | | | | +--------+ + + + + documented as of this encounter Visit Diagnoses Not on filedocumented in this encounter"
--- OUTSIDE RECORDS SUMMARY | ~2020-06-03 | XMS | Encounter Summary ---
Demographics + + + | Address | [address] | | | [place] [address] | + + + | Home Phone [...] | [place] | | | | | [address] | | + + + + + Care Team Providers + +------+ + | Care Cylinder Block Mechanic Name | Role | Phone | [...] + + | 08/02/ | Telephone | [facility] | Edd Hurst, | Appointment | | 2013 | | GASTROENTEROLOGY | [address] | (schedule follow up | | | | [address] | [address] [place], | appt) | | | | [address] [place], [place] | [place] [address] | | | | | [address] | [phone] | | | | | [phone] | | | +--------+ + + + [...] would like order to be sent to [facility] [place], orders sent, also patient to lilly a [...] 2019 | Office | | [address] | | | | Visit | | [place] | | | | | | [place] [address] | | | | | | [phone] | | | | | | | | +--------+ + + + + | 07/09/ | Virtual | Gastroenterology | Osito Bowen | | 2019 | Office | | MD Jonathan [address] | | | | Visit | | [place] [address] | | | | | | [phone] | | | | | | | | +--------+ + + + + documented as of this encounter Visit Diagnoses Not on filedocumented in this encounter"
--- OUTSIDE RECORDS SUMMARY | ~2020-06-03 | XMS | Encounter Summary ---
Demographics + + + | Address | [address] | | | [place] [address] | + + + | Home Phone [...] Author + + + | Author | [facility] | | | and [place] | + + + | Organization | [facility] | [...] [place] | | | | | [address] | | + + + + + [...] + + | 12/13/ | Telephone | [facility] | [facility], | [facility] | | 2013 | | GASTROENTEROLOGY | KYRA [address] | | | | | [address] | [address] | | | | | [address] [place], [place] | [place], [place] | | | | | [address] | [address] | | | | | [phone] | | | +--------+ + + + [...] Telephone Encounter - Graciela Narayanan Master of [employer] - 12/13/2013 10:17 AM PSTSpoke to Ria, she is anemic and one of her inflammatory markers is up the other is normal. Told her she needs to keep appointment for colonoscopy.Patient verbalized understanding.Electronicall y signed by Master Boykin of [employer] at 12/13/2013 10:21 AM PSTTelephone Encounter - [...] 2019 | Office | | [address] | | | | Visit | | [place] | | | | | | [place] [address] | | | | | | [phone] | | | | | | | | +--------+ + + + + | 07/09/ | Virtual | Gastroenterology | Osito Bowen | | 2019 | Office | | MD Jonathan [address] | | | | Visit | | [place] [address] | | | | | | [phone] | | | | | | | | +--------+ + + + + documented as of this encounter Visit Diagnoses Not on filedocumented in this encounter"
--- OUTSIDE RECORDS SUMMARY | ~2020-06-03 | XMS | Encounter Summary ---
Demographics + + + | Address | [address] | | | [place] [address] | + + + | Home Phone [...] | + + + + + | Mairlyn Diallo | ECON | [place] | | | | | [address] | | + + + + + Care Team Providers + +------+ + | Care Proposal Consultant Name | Role | Phone | [...] + + | 07/06/ | Office | [facility] | [facility], | Ulcerative colitis | | 2012 | Visit | GASTROENTEROLOGY | KYRA [address] | ([facility]) (Primary Dx); | | | | [address] | [address] | Diarrhea; Abdominal | | | | [address] [place], [place] | [place], [place] | pain | | | | [address] | [address] | | | | | [phone] | | | +--------+---------+ + + + [...] your health care provider. He or she ca n teach you what to do if [...] Crohn s and Colitis [facility] toll-free at [phone]. Managing Nutrition You may be able to [...] care provider may have you see a motorman/woman to come up with the best food choices for you. A motorman/woman can help ensure that you eat foods [...] water Mashed potatoes Skinless chicken Instant oatmeal [phone], [place] [address]. All rights reserve d. This information is [...] his encounter Miscellaneous Notes Miscellaneous - ANNETTE LOYA [facility] - 07/06/2013 12:00 AM PDT documented in [...] | | | | | | [place] [address] | | | | | | [phone] | | | | | | | | +--------+ + + + + | 07/09/ | Virtual | Gastroenterology | Osito Bowen | | | 2019 | Office | | MD Jonathan [address] | | | | Visit | | [place] [address] | | | | | | [phone] | | | | | | | [...]
--- OUTSIDE RECORDS SUMMARY | ~2020-06-03 | XMS | Encounter Summary ---
Demographics + + + | Address | [address] | | | [place] [address] | + + + | Home Phone [...] Author + + + | Author | [facility] | | | and [place] | + + + | Organization | [facility] | | | and [place] | + + + | Address | Unknown | + + + | Phone | Unavailable | + + + Support + + + + + | Name | Relationship | Address | Phone | + + + + + | Marilyn Diallo | ECON | [place] | | | | | [address] | | + + + + + Care Team Providers + +------+ + | Care Service Cashier Name | Role | Phone | [...] + + | 05/21/ | Refill | [facility] | Osito Bowen | Medication Refill | | 2019 | | GASTROENTEROLOGY | MD Jonathan [address] | | | | | [address] | [place] [address] | | | | | [place], [place] | [phone] | | | | | [address] | | | | | | [phone] | | | +--------+--------+ + + + [...] No more RF. Needs an appointment for [facility] erative colitis. I will place labs to be done before appointment they will include stool fidelia ting to check the IBD. Thanks Indigo NP Techristian jagruti Encounter - Ayah Berkowitz, Solidworks Mechanical Designer - 05/22/2020 4:21 PM Julio, bessy yo [...] | | | | | | [place] [address] | | | | | | [phone] | | | | | | | | +--------+ + + + + | 07/09/ | Virtual | Gastroenterology | Osito Bowen | | 2019 | Office | | J, MD [address] | | | | Visit | | [place] [address] | | | | | | [phone] | | | | | | | [...] location | | | | | | ([facility]) | | + + +--------+ + + | Clostridium | Microbiolog | Routin | Ulcerative colitis | 1 Occurrences | | difficile A and B | y | e | with other | starting 05/22/2020 | | EIA | | | complication, | until 05/22/2021 | | | | | unspecified location | | | | | | ([facility]) | | + + +--------+ + + documented as of this encounter Visit Diagnoses + + | Diagnosis | + + | Ulcerative colitis with other complication, unspecified location ([facility]) - Primary | + + documented in this encounter"
--- OUTSIDE RECORDS SUMMARY | ~2020-06-03 | XMS | Encounter Summary ---
Demographics + + + | Address | [address] | | | [place] [address] | + + + | Home Phone [...] | [place] | | | | | [address] | | + + + + + Care Team Providers + +------+ + | Care Coconut Boiler Name | Role | Phone | + [...] + + | 08/08/ | Telephone | [facility] | Edd Hurst, | Other (reminder to | | 2013 | | GASTROENTEROLOGY | MD [address] | have bloodwork | | | | [address] | [address] [place], | drawn) | | | | [address] [place] [place] | [place] [address] | | | | | [address] | [phone] | | | | | [phone] | | | +--------+ + + + [...] drawn orders were sent last week to [facility] [place] documented in th is encounter Plan of Treatment +--------+ + + + + | Date | Type | Specialty | Care Team | Description | +--------+ + + + + | 06/04/ | Virtual | Gastroenterology | Natalie, | | | 2019 | Office | | [address] | | | | Visit | | [place] | | | | | | [place] [address] | | | | | | [phone] | | | | | | | | +--------+ + + + + | 07/09/ | Virtual | Gastroenterology | Osito Bowen | | 2019 | Office | | MD Jonathan [address] | | | | Visit | | [place] [address] | | | | | | [phone] | | | | | | | | +--------+ + + + + documented as of this encounter Visit Diagnoses Not on filedocumented in this encounter"
--- OUTSIDE RECORDS SUMMARY | ~2020-06-03 | XMS | Encounter Summary ---
Demographics + + + | Address | [address] | | | [place] [address] | + + + | Home Phone [...] + + + | Author | [facility] | | | and [place] | + + + | Organization | [facility] | | | and [place] | + + + | Address | Unknown | + + + | Phone | Unavailable | + + + Support + + + + + | Name | Relationship | Address | Phone | + + + + + | Marilyn Diallo | ECON | [place] | | | | | [address] | | + + + + + Care Team Providers + +------+ + | Care White Lead Filterer Name | Role | Phone | + [...] + + | 07/06/ | Office | [facility] | [facility], | Ulcerative colitis | | 2012 | Visit | GASTROENTEROLOGY | KYRA Singer [address] | ([facility]) (Primary Dx); | | | | [address] [place] | [address] [place] [address] | Diarrhea; Abdominal | | | | [address] [place], [place] | [place], [place] | pain | | | | [address] | [address] | | | | | [phone] | | | +--------+---------+ + + + [...] [facility] toll-free at . Managing Nutrition You may be able to [...] care provider may have you see a rn nicu to come up with the best food choices for you. A rn nicu can help ensure that you eat foods [...] water Mashed potatoes Skinless chicken Instant oatmeal 4526-[address], [place] [address]. All rights reserve d. This information is [...] encounter Miscellaneous Notes Miscellaneous - ANNETTE LO[facility] - 07/06/2013 12:00 AM PDT documented in [...] | | | | | | [place] [address] | | | | | | [phone] | | | | | | | | +--------+ + + + + | 07/09/ | Virtual | Gastroenterology | Osito Bowen | | | 2019 | Office | | MD Jonathan [address] | | | | Visit | | [place] [address] | | | | | | [phone] | | | | | | | [...]
--- OUTSIDE RECORDS SUMMARY | ~2020-06-03 | XMS | Encounter Summary ---
Demographics + + + | Address | [address] | | | [place] [address] | + + + | Home Phone [...] | [place] | | | | | [address] | | + + + + + Care Team Providers + +------+ + | Care Quality Review Trainer Name | Role | Phone | + [...] + | 08/09/ | Telephone | [facility] | [facility], | Other (medication | | 2013 | | GASTROENTEROLOGY | KYRA Singer [address] | question) | | | | [address] [place] | [address] [facility] [address] | | | | | [address] [place] | [place] | | | | | [address] | [address] | | | | | [phone] | | | +--------+ + + + [...] sinus issue as well. Advised if sommer reedues to feel poorly may want to go [...] in asking to speak with the charlee mathew. She said she took "a couple" of [...] 2019 | Office | | [address] | | | | Visit | | [place], | | | | | | [place] [address] | | | | | | [phone] | | | | | | | | +--------+ + + + + | 07/09/ | Virtual | Gastroenterology | Osito Bowen | | | 2019 | Office | | MD Jonathan [address] | | | | Visit | | [place] [address] | | | | | | [phone] | | | | | | | | +--------+ + + + + documented as of this encounter Visit Diagnoses Not on filedocumented in this encounter
--- OUTSIDE RECORDS SUMMARY | ~2020-06-03 | XMS | Encounter Summary ---
Demographics + + + | Address | [address] | | | [place] [address] | + + + | Home Phone [...] + + + | Author | [facility] | | | and [place] | + + + | Organization | [facility] | | | and [place] | + + + | Address | Unknown | + + + | Phone | Unavailable | + + + Support + + + + + | Name | Relationship | Address | Phone | + + + + + | Marilyn Diallo | ECON | [place] | | | | | [address] | | + + + + + Care Team Providers + +------+ + | Care Child Care Attendant School Name | Role | Phone | [...] + | 07/24/ | Telephone | [facility] | [facility], | Other | | 2012 | | GASTROENTEROLOGY | KYRA Singer [address] | | | | | [address] [place] | [address] [place] [address] | | | | | [address] [place], [place] | [place], [place] | | | | | [address] | [address] | | | | | [phone] | | | +--------+ + + + [...] | | | | | | [place] [address] | | | | | | [phone] | | | | | | | | +--------+ + + + + | 07/09/ | Virtual | Gastroenterology | Osito Bowen | | | 2019 | Office | | MD Jonathan [address] | | | | Visit | | [place] [address] | | | | | | [phone] | | | | | | | | +--------+ + + + + documented as of this encounter Visit Diagnoses Not on filedocumented in this encounter"
--- OUTSIDE RECORDS SUMMARY | ~2020-06-03 | XMS | Encounter Summary ---
Demographics + + + | Address | [address] | | | [place] [address] | + + + | Home Phone [...] | [place] | | | | | [address] | | + + + + + Care Team Providers + +------+ + | Care Rcp Name | Role | Phone | + [...] + + | 08/09/ | Telephone | [facility] | [facility], | Other (medication | | 2013 | | GASTROENTEROLOGY | KYRA Singer [address] | question) | | | | [address] [place] | [address] [facility] 210 | | | | | [address] [place] | [place] | | | | | [address] | [address] | | | | | [phone] | | | +--------+ + + + [...] | | | | | | [place] [address] | | | | | | [phone] | | | | | | | | +--------+ + + + + | 07/09/ | Virtual | Gastroenterology | Osito Bowen | | | 2019 | Office | | MD Jonathan [address] | | | | Visit | | [place] [address] | | | | | | [phone] | | | | | | | | +--------+ + + + + documented as of this encounter Visit Diagnoses Not on filedocumented in this encounter
--- OUTSIDE RECORDS SUMMARY | ~2020-06-03 | XMS | Encounter Summary ---
Demographics + + + | Address | [address] | | | [place] [address] | + + + | Home Phone [...] | [place] | | | | | [address] | | + + + + + Care Team Providers + +------+ + | Care Machine Operator Name | Role | Phone [...] | | colitis | Lucrecia, | [address] | | | | | Procedures | EMERGENCY ROOM PHYSICIAN [address] | [place], | | | | | [place] IV | [address] | [place] [address] | | | | | INFUSION, | [address] [address] | Phone: | | | | | THERAP/PROPH | [place], | [phone] | | | | | /[place] | [place] [address] | Fax: | | | | | ITIAL,1ST | Phone: | [phone] | | | | | [place]OUR [place] | [phone] | | | | | | INFLIXIMAB | Fax: | | | | | | INJECTION, | [phone] | | | | | | 10 MG WSM | | | | | | | OP INF | | | | | | | REMICADE | | | +--------+--------+ + + + + Encounter Details +--------+ + + + + | Date | Type | Department | Care Team | Description | +--------+ + + + + | 02/18/ | Hospital | [facility] | [facility], | Ulcerative colitis, | | 2015 | Encounter | MED CTR OP INFUSION | KYRA Singer [address] | other complication | | | | [address] | [address] [address] | ([facility]); Ulcerative | | | | [place], [place] | [place], [place] | colitis, with rectal | | | | [address] | [address] | bleeding ([facility]) | | | | [phone] | | | +--------+ + + + [...] [place], | | | | | | [place] [address] | | | | | | [phone] | | | | | | | | +--------+ + + + + | 07/09/ | Virtual | Gastroenterology | Osito Bowen | | | 2019 | Office | | MD Jonathan [address] | | | | Visit | | [place] [address] | | | | | | [phone] | | | | | | | [...]
--- OUTSIDE RECORDS SUMMARY | ~2020-06-03 | XMS | Encounter Summary ---
Demographics + + + | Address | [address] | | | [place] [address] | + + + | Home Phone [...] [place] | | | | | [address] | | + + + + + Care Team Providers + +------+ + | Care Redipper Name | Role | Phone | + [...] + + | 07/17/ | Telephone | [facility] | Osito Bowen | Gastroenterology | | 2019 | | GASTROENTEROLOGY | MD Jonathan [address] | Appointment | | | | [address] | [place] [address] | (reschedule 07/18 | | | | [place], [place] | [phone] | appointment) | | | | [address] | | | | | | [phone] | | | +--------+ + + + [...] transfer the call to a luna ventura cone worker was caller made aware that if at [...] | | | | | | [place] [address] | | | | | | [phone] | | | | | | | | +--------+ + + + + | 07/09/ | Virtual | Gastroenterology | Osito Bowen | | | 2019 | Office | | MD Yenifer Castillo | | | | Visit | | [place] [address] | | | | | | [phone] | | | | | | | | +--------+ + + + + documented as of this encounter Visit Diagnoses Not on filedocumented in this encounter"
--- OUTSIDE RECORDS SUMMARY | ~2020-06-03 | XMS | Encounter Summary ---
Demographics + + + | Address | [address] | | | [place] [address] | + + + | Home Phone [...] [place] | | | | | [address] | | + + + + + Care Team Providers + +------+ + | Care Fpga Engineer Name | Role | Phone | [...] + + | 07/03/ | Telephone | [facility] [place] | [facility], | Results (labs) | | 2013 | | GASTROENTEROLOGY | KYRA Singer [address] | | | | | [address] [place] | [address] [address] | | | | | [address] [place], [place] | [place], [place] | | | | | [address] | [address] | | | | | [phone] | | | +--------+ + + + [...] Telephone Encounter - Graciela Narayanan Master of [employer] - 07/03/2014 2:04 PM PDTPatient a lso said she has been off prednisone 5 or 6 weeks. elephone Encounter - Graciela Narayanan Master of [employer] - 07/03/2014 1:17 PM Mark Rollins her lab results. She said she is having problems with her colitis. 6-7 loose stools per day, abdominal pain. She does have heavy bleeding wi th her periods also. She is scheduled to come in to see Danielle 07/09/14. Electronically shannan d by Graciela Narayanan Master of [employer] Oriented [employer] Software at 07/03/2014 1:21 PM PDTdocumented in this encounte r Plan of Treatment +--------+ + + + + | Date | Type | Specialty | Care Team | Description | +--------+ + + + + | 06/04/ | Virtual | Gastroenterology | Natalie, | | | 2019 | Office | | [address] | | | | Visit | | [place] | | | | | | [place] [address] | | | | | | [phone] | | | | | | | | +--------+ + + + + | 07/09/ | Virtual | Gastroenterology | Osito Bowen | | 2019 | Office | | MD Jonathan [address] | | | | Visit | | [place] [address] | | | | | | [phone] | | | | | | | | +--------+ + + + + documented as of this encounter Visit Diagnoses Not on filedocumented in this encounter"
--- OUTSIDE RECORDS SUMMARY | ~2020-06-03 | XMS | Encounter Summary ---
Demographics + + + | Address | [address] | | | [place] [address] | + + + | Home Phone [...] Author + + + | Author | [facility] | | | and [place] | + + + | Organization | [facility] | | | and [place] | + + + | Address | Unknown | + + + | Phone | Unavailable | + + + Support + + + + + | Name | Relationship | Address | Phone | + + + + + | Marilyn Diallo | ECON | [place] | | | | | [address] | | + + + + + Care Team Providers + +------+ + | Care Resident Surgeon Name | Role | Phone | + [...] + + | 11/05/ | Telephone | [facility] | Aris Schmid MD | Other (Reschedule | | 2014 | | GASTROENTEROLOGY | [address] | procedure date) | | | | [address] | [place], [place] | | | | | [address] [place], [place] | [address] | | | | | [address] | [phone] | | | | | [phone] | | | +--------+ + + + [...] 2019 | Office | | [address] | | | | Visit | | [facility], | | | | | | [place] [address] | | | | | | [phone] | | | | | | | | +--------+ + + + + | 07/09/ | Virtual | Gastroenterology | Osito Bowen | | | 2020 | Office | | MD Jonathan [address] | | | | Visit | | [place] [address] | | | | | | [phone] | | | | | | | | +--------+ + + + + documented as of this encounter Visit Diagnoses Not on filedocumented in this encounter"
--- OUTSIDE RECORDS SUMMARY | ~2020-06-03 | XMS | Encounter Summary ---
Demographics + + + | Address | [address] | | | [place] [address] | + + + | Home Phone | | + + + | Preferred Language | Unknown | + + + | Marital Status | Single | + + + | Hindu Affiliation | 1013 | + + + [...] [place] | | | | | [address] | | + + + + + Care Team Providers + +------+ + | Care Clerical Secretary Name | Role | Phone | + [...] | | | | | | | ([facility]) | | | | | | | Procedures | | | | | | | COLONOSCOPY | | | | | | | COLONOSCOPY | | | +--------+--------+ + + + + Encounter Details +--------+ + + + + | Date | Type | Department | Care Team | Description | +--------+ + + + + | 12/25/ | Hospital | [facility] | Aris Schmid MD | Colitis (Primary | | 2013 | Encounter | MED CTR MP INTRA OP | [address] | Dx); Inflammatory | | | | [address] | [place] | bowel disease | | | | [place] | [address] | | | | | [address] | [phone] | | | | | [phone] | | | +--------+ + + + [...] MD at 12/25/2013 7:58 AM PDTLucrecia Blank, [facility] - 11/12 11:20 AM PST Ria [...] of control. Recommended discussion with PCP or PSYCHIATRIC SECURITY NURSE. Will follow up with results. Patient is [...] AM PDTHistory of [place]., Diarrhea NBASE SCAN [facility] - 12/25/2013 12:00 AM PDTAssociated Order(s): PATHOLOGY - EXTERNAL SCAN 9:5 5 AM PDTONZABRINA SCAN [facility] - 12/25/2013 12:00 AM PDTAssociated Order(s): PATHOLOGY - EXTERNAL SCAN NBASE SCAN [facility] - 12/25 12:00 AM PDTAssociated Order(s): COLONOSCOPYElectronically signed by Jassi Saldaña at 0 12/25/2013 11:18 AM PDTdocumented in this encounter Miscellaneous Notes Plan of Care - ONBASE SCAN [facility] - 01/03/2014 12:00 AM PDT iscellaneous - ONBASE SCAN [facility] - 01/01/2014 12:00 AM PDTElec tronically signed by Jassi Saldaña at 01/01/2014 7:46 AM PDTMiscellaneous - ONBASE SCAN [facility] - 12/29/2013 12:00 AM PDT l an of Care - ONBASE SCAN [facility] - 12/26/2013 12:00 AM PDT lan of Care - ONBASE SCAN [facility] - 12/26/2013 12:00 AM PDTElectron ically signed by [facility], [facility] at 01/01/2014 9:50 AM PDTMiscellaneous - ONBASE SCAN [facility] - 0 12/26/2013 12:00 AM PDT docume nted in this encounter Plan of Treatment +--------+ + + + + | Date | Type | Specialty | Care Team | Description | +--------+ + + + + | 06/04/ | Virtual | Gastroenterology | Natalie, | | | 2019 | Office | | [address] | | | | Visit | | [place] | | | | | | [place] [address] | | | | | | [phone] | | | | | | | | +--------+ + + + + | 07/09/ | Virtual | Gastroenterology | Osito Bowen | | 2019 | Office | | MD Jonathan [address] | | | | Visit | | [place] [address] | | | | | | [phone] | | | | | | | [...] 12/25/2013 | [facility]ATION | | 10:28 AMMRN: [id number] #: [id number] of : | | | 1980Admit Type: AmbulatoryAge: 33Room: [facility] 02Gender: FemaleNote | | | Status: [...] by the physician, the nurse and the wildlife biology technician in the | | | pre-procedure [...] On: 12/25/2013 | | | 10:28 AM [facility], [address] [facility], | | | [place] [address] | | | - Discharge patient to [...] On: 12/25/2013 10:28 AM | | | [facility], [address] [place] [address], [place], [place] | | | [address] | | + + -+ + + | Transcriptions | + + | [facility] - 12/25/2013 12:00 AM PDT | + [...]
--- OUTSIDE RECORDS SUMMARY | ~2020-06-03 | XMS | Encounter Summary ---
Demographics + + + | Address | [address] | | | [place] [address] | + + + | Home Phone [...] | [place] | | | | | [address] | | + + + + + Care Team Providers + +------+ + | Care Structural Design Engineer Name | Role | [...] | | colitis | Lucrecia, | [address] | | | | | Procedures | WOMEN DESIGNER [address] | [place], | | | | | [place] IV | [address] | [place] [address] | | | | | INFUSION, | [address] | Phone: | | | | | THERAP/PROPH | [place], | [phone] | | | | | /[place] | [place] [address] | Fax: | | | | | ITIAL,1ST | Phone: | [phone] | | | | | [place] | [phone] | | | | | | INFLIXIMAB | Fax: | | | | | | INJECTION, | [phone] | | | | | | 10 MG WSM | | | | | | | OP INF | | | | | | | REMICADE | | | +--------+--------+ + + + + Encounter Details +--------+ + + + + | Date | Type | Department | Care Team | Description | +--------+ + + + + | 08/27/ | Hospital | [facility] | [facility], | Ulcerative colitis, | | 2013 | Encounter | MED CTR OP INFUSION | MAGY [address] | with rectal bleeding | | | | [address] | [address] [place] [address] | ([facility]) (Primary Dx) | | | | [place], [place] | [place], [place] | | | | | [address] | [address] | | | | | [phone] | | | +--------+ + + + [...] 2019 | Office | | [address] | | | | Visit | | [place], | | | | | | [place] [address] | | | | | | [phone] | | | | | | | | +--------+ + + + + | 07/09/ | Virtual | Gastroenterology | Osito Bowen | | | 2019 | Office | | MD Jonathan [address] | | | | Visit | | [place] [address] | | | | | | [phone] | | | | | | | [...]
--- OUTSIDE RECORDS SUMMARY | ~2020-06-03 | XMS | Encounter Summary ---
Demographics + + + | Address | [address] | | | [place] [address] | + + + | Home Phone [...] [place] | | | | | [address] | | + + + + + Care Team Providers + +------+ + | Care Vendor Management Associate Name | Role | Phone | [...] + + | 09/23/ | Refill | [facility] | [facility], | Medication Refill | | 2014 | | GASTROENTEROLOGY | KYRA Singer [address] | | | | | [address] [place] | [address] [address] | | | | | [address] [place], [place] | [place] | | | | | [address] | [address] | | | | | [phone] | | | +--------+--------+ + + + [...] | | | | | | [place] [address] | | | | | | [phone] | | | | | | | | +--------+ + + + + | 07/09/ | Virtual | Gastroenterology | Osito Bowen | | 2019 | Office | | MD Jonathan [address] | | | | Visit | | [place] [address] | | | | | | [phone] | | | | | | | | +--------+ + + + + documented as of this encounter Visit Diagnoses Not on filedocumented in this encounter"
--- OUTSIDE RECORDS SUMMARY | ~2020-06-03 | XMS | Encounter Summary ---
Demographics + + + | Address | [address] | | | [place] [address] | + + + | Home Phone [...] [place] | | | | | [address] | | + + + + + Care Team Providers + +------+ + | Care Train Electronic Technician Name | Role | Phone | + +------+ + | Carlos Díaz NP | PCP | | + +------+ + Encounter Details +--------+ + + + + | Date | Type | Department | Care Team | Description | +--------+ + + + + | 06/04/ | Orders Only | [facility] | Natalie, | Ulcerative colitis | | 2019 | | GASTROENTEROLOGY | [address] | with rectal | | | | [address] | [address] [facility], | bleeding, | | | | [facility] [place] | [place] [address] | unspecified location | | | | [address] | [phone] | (HCC) (Primary Dx) | | | | [phone] | | | +--------+ + + + [...] | | | Visit | | [facility] | | | | | | [place] [address] | | | | | | [phone] | | | | | | | | +--------+ + + + + | 07/09/ | Virtual | Gastroenterology | Osito Bowen | | | 2019 | Office | | MD Jonathan [address] | | | | Visit | | [place] [address] | | | | | | [phone] | | | | | | | [...]
--- OUTSIDE RECORDS SUMMARY | ~2020-06-03 | XMS | Encounter Summary ---
Demographics + + + | Address | [address] | | | [place] [address] | + + + | Home Phone [...] + + | Author | [facility] | | | and [place] | + + + | Organization | [facility] | | | and [place] | + + + | Address | Unknown | + + + | Phone | Unavailable | + + + Support + + + + + | Name | Relationship | Address | Phone | + + + + + | Marilyn Diallo | ECON | [place] | | | | | [address] | | + + + + + Care Team Providers + +------+ + | Care Battery Hand Name | Role | Phone | + +------+ + | Carlos Daíz NP | PCP | | + +------+ [...] + + | 03/10/ | Tele[facility] | [facility] | [facility], | Results ([facility]) | | 2015 | | GASTROENTEROLOGY | KYRA Singer [address] | | | | | [address] [place] | [address] | | | | | [address] [place], [place] | [place], [place] | | | | | [address] | [address] | | | | | [phone] | | | +--------+ + + + [...] Miscellaneous Notes Telephone Encounter - Graciela Narayanan Senior Gl Accountant - 03/10/2016 4:58 PM PDTSpoke to patient, gave her Brie's message. Patient has an appointment with PCP this Wednesday. Jamil rivero axed to Carlos Díaz NPElectronically signed by Graciela Narayanan Senior Gl Accountant at 4:59 PM PDTTelephone Encounter - Graciela Narayanan Senior Gl Accountant - 03/10/2016 4:57 PM PDT----- Message from KYRA Beatty sent at 03/10/2016 15:56 PDT ----- Her labs show significant anemia without evidence of inflammation. Please forward labs to ayana parisi pcp. 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 She sh ould start iron supplementation. Thank you documented in this encounter Plan of Treatment +--------+ + + + + | Date | Type | Specialty | Care Team | Description | +--------+ + + + + | 06/04/ | Virtual | Gastroenterology | Natalie, | | 2019 | Office | | [address] | | | | Visit | | [place] | | | | | | [place] [address] | | | | | | [phone] | | | | | | | | +--------+ + + + + | 07/09/ | Virtual | Gastroenterology | Osito Bowen | | 2019 | Office | | MD Jonathan [address] | | | | Visit | | [place] [address] | | | | | | [phone] | | | | | | | | +--------+ + + + + documented as of this encounter Visit Diagnoses Not on filedocumented in this encounter"
--- OUTSIDE RECORDS SUMMARY | ~2020-06-03 | XMS | Encounter Summary ---
Demographics + + + | Address | [address] | | | [place] [address] | + + + | Home Phone [...] [place] | | | | | [address] | | + + + + + Care Team Providers + +------+ + | Care Logistics Operations Manager Name | Role | Phone | [...] [address] | | | | | [address] [place], [place] | [place], [place] | | | | | [address] | [address] | | | | | [phone] | | | +--------+ + + + [...] Miscellaneous Notes Telephone Encounter - Graciela Narayanan Shuttle Truck Driver - 07/24/2015 1:24 PM PDTSent p atient a letter to have her call. elephone Encounter - Graciela Narayanan Shuttle Truck Driver - 1 2:22 PM PDTLeft message for [...] | 06/04/ | Virtual | Gastroenterology | Naatlie, | | | 2019 | Office | | [address] | | | | Visit | | [place] | | | | | | [place] [address] | | | | | | [phone] | | | | | | | | +--------+ + + + + | 07/09/ | Virtual | Gastroenterology | Osito Bowen | | 2019 | Office | | MD Jonathan [address] | | | | Visit | | [place] [address] | | | | | | [phone] | | | | | | | | +--------+ + + + + documented as of this encounter Visit Diagnoses Not on filedocumented in this encounter"
--- OUTSIDE RECORDS SUMMARY | ~2020-06-03 | XMS | Encounter Summary ---
Demographics + + + | Address | [address] | | | [place] [address] | + + + | Home Phone [...] [place] | | | | | [address] | | + + + + + Care Team Providers + +------+ + | Care Solar Photovoltaic Crew Lead Name | Role | Phone | + +------+ + | Carlos Díaz NP | PCP | | + +------+ + Reason for Visit + +--------+ + | Reason | Onset | Comments | | | Date | | + +--------+ + | Follow-up | 08/16/ | 08/17/19 reschedule | | | 2019 | | + +--------+ + Encounter Details +--------+ + + + + | Date | Type | Department | Care Team | Description | +--------+ + + + + | 08/16/ | Telephone | [facility] | Osito Bowen | Follow-up (08/17/19 | | 2019 | | GASTROENTEROLOGY | MD Jonathan [address] | reschedule) | | | | [address] | [place] [address] | | | | | [place], [place] | [phone] | | | | | [address] | | | | | | [phone] | | | +--------+ + + + [...] Notes Telephone Encounter - Diane Graham - 08/16/2019 2:56 PM PSTReturned call appt cancell ed. elephone Encounter - Karma Sanz - 08/16/2019 2:20 PM PSTKeri, is calling regarding Follow-up (08/17/19 re schedule) and would like a call back. Additional Call Details: Calling to reschedule 08/17/19 appointment. Please call back. If this is a symptom based call, was patient offered triage? Not Applicable If this is a symptom based call and you were unable to immediately transfer the call to a luna ventura loan administrator was caller made aware that if at [...] | | | | | | [place] [address] | | | | | | [phone] | | | | | | | | +--------+ + + + + | 07/09/ | Virtual | Gastroenterology | Osito Bowen | | | 2020 | Office | | MD Jonathan [address] | | | | Visit | | [place] [address] | | | | | | [phone] | | | | | | | | +--------+ + + + + documented as of this encounter Visit Diagnoses Not on filedocumented in this encounter"
--- OUTSIDE RECORDS SUMMARY | ~2020-06-03 | XMS | Encounter Summary ---
Demographics + + + | Address | [address] | | | [place] [address] | + + + | Home Phone [...] | [place] | | | | | [address] | | + + + + + Care Team Providers + +------+ + | Care Cafe Site Attendant Name | Role | Phone | + [...] + + | 03/07/ | Refill | [facility] | Osito Bowen | Medication Refill | | 2019 | | GASTROENTEROLOGY | MD Jonathan [address] | | | | | [address] | [place] [address] | | | | | [place], [place] | [phone] | | | | | [address] | | | | | | [phone] | | | +--------+--------+ + + + [...] | | | | | | [place] [address] | | | | | | [phone] | | | | | | | | +--------+ + + + + | 07/09/ | Virtual | Gastroenterology | Osito Bowen | | 2019 | Office | | MD Jonathan [address] | | | | Visit | | [place] [address] | | | | | | [phone] | | | | | | | | +--------+ + + + + documented as of this encounter Visit Diagnoses Not on filedocumented in this encounter"
--- OUTSIDE RECORDS SUMMARY | ~2020-06-03 | XMS | Encounter Summary ---
Demographics + + + | Address | [address] | | | [place] [address] | + + + | Home Phone [...] Author + + + | Author | [facility] | | | and [place] | + + + | Organization | [facility] | [...] [place] | | | | | [address] | | + + + + + Care Team Providers + +------+ + | Care Corrosion Engineer Name | Role | Phone | [...] | Telephone | [facility] [place] | [facility], | Other (Brian) | | 2014 | | GASTROENTEROLOGY | KYRA Singer [address] | | | | | [address] | [address] | | | | | [address] [place], [place] | [place], [place] | | | | | [address] | [address] | | | | | [phone] | | | +--------+ + + + [...] 2019 | Office | | [address] | | | | Visit | | [place] | | | | | | [place] [address] | | | | | | [phone] | | | | | | | | +--------+ + + + + | 07/09/ | Virtual | Gastroenterology | Osito Bowen | | 2019 | Office | | MD Jonathan [address] | | | | Visit | | [place] [address] | | | | | | [phone] | | | | | | | | +--------+ + + + + documented as of this encounter Visit Diagnoses Not on filedocumented in this encounter"
--- OUTSIDE RECORDS SUMMARY | ~2020-06-03 | XMS | Encounter Summary ---
Demographics + + + | Address | [address] | | | [place] [address] | + + + | Home Phone [...] [place] | | | | | [address] | | + + + + + Care Team Providers + +------+ + | Care Medical Office Clerk Name | Role | Phone | [...] + + | 07/11/ | Telephone | [facility] | [facility], | Other (Ria was | | 2011 | | GASTROENTEROLOGY | KYRA Singer [address] | prescribed an | | | | [address] | [address] | antiinflammatoy by | | | | [address] [place] | [place] | an orthopedic doctor | | | | [address] | [address] | and wants to | | | | [phone] | | discuss this new | | [...] - Graciela Narayanan - 07/11/2012 11:30 AM PDTAuvitek International message for jennifer Rollins ad the note [...] | | | | | | [place] [address] | | | | | | [phone] | | | | | | | | +--------+ + + + + | 07/09/ | Virtual | Gastroenterology | Osito Bowen | | | 2019 | Office | | MD Jonathan [address] | | | | Visit | | [place] [address] | | | | | | [phone] | | | | | | | | +--------+ + + + + documented as of this encounter Visit Diagnoses Not on filedocumented in this encounter"
--- OUTSIDE RECORDS SUMMARY | ~2020-06-03 | XMS | Encounter Summary ---
Demographics + + + | Address | [address] | | | [place] [address] | + + + | Home Phone [...] + | Marilyn Diallo | ECON | [place] | | | | | [address] | | + + + + + Care Team Providers + +------+ + | Care Storage Garage Attendant Name | Role | Phone | + +------+ + | Lilliana Wheeler | PCP | | | BUSINESS OPERATIONS ANALYST | | | + +------+ + Reason [...] [address] | | | | | [address] [place], [place] | [place], [place] | | | | | [address] | [address] | | | | | [phone] | | | +--------+ + + + [...] Telephone Encounter - Graciela Narayanan Master of LeadFire - 12/19/2013 8:38 AM PDTSpoke to Danielle Rollins asks that she stay on the same dosage of Asacol and we will wait and see what the results are of colonoscopy . Patient verbalized understanding. elephone Encounter - Liberty Narayanan, Master of Arts - 12/18/2013 2:45 PM PDTPatient called to [...] | | | | | | [place] [address] | | | | | | [phone] | | | | | | | | +--------+ + + + + | 09/29/ | Virtual | Gastroenterology | Osito Bowen | | | 2019 | Office | | MD Jonathan [address] | | | | Visit | | [place] [address] | | | | | | [phone] | | | | | | | | +--------+ + + + + documented as of this encounter Visit Diagnoses Not on filedocumented in this encounter"
--- OUTSIDE RECORDS SUMMARY | ~2020-06-03 | XMS | Encounter Summary ---
Demographics + + + | Address | [address] | | | [place] [address] | + + + | Home Phone [...] | [place] | | | | | [address] | | + + + + + Care Team Providers + +------+ + | Care Shirt Folding Machine Operator Name | Role | Phone [...] | | remicade-wee | [place], | [address] | | | | | k 0 | CARPET INSTALLER [address] | [place], | | | | | Procedures | [address] | [place] [address] | | | | | [place] | [address] | Phone: | | | | | INFLIXIMAB | [place], | [phone] | | | | | INJECTION, | [place] [address] | Fax: | | | | | 10 MG [place] IV | Phone: | [phone] | | | | | INFUSION, | [phone] | | | | | | THERAP/PROPH | Fax: | | | | | | /[place] | [phone] | | | | | | ITIAL,1ST [...] + + | 05/14/ | Hospital | [facility] | [facility], | Ulcerative colitis, | | 2013 | Encounter | MED CTR OP INFUSION | KYRA Singer [address] | with rectal bleeding | | | | [address] | [address] | ([facility]) (Primary Dx) | | | | [place], [place] | [place], [place] | | | | | [address] | [address] | | | | | [phone] | | | +--------+ + + + [...] 2019 | Office | | [address] | | | | Visit | | [place] | | | | | | [place] [address] | | | | | | [phone] | | | | | | | | +--------+ + + + + | 07/09/ | Virtual | Gastroenterology | Osito Bowne | | 2019 | Office | | MD Yenifer Castillo | | | | Visit | | [place] [address] | | | | | | [phone] | | | | | | | [...]
--- OUTSIDE RECORDS SUMMARY | ~2020-06-03 | XMS | Encounter Summary ---
Demographics + + + | Address | [address] | | | [place] [address] | + + + | Home Phone [...] | [place] | | | | | [address] | | + + + + + Care Team Providers + +------+ + | Care Lead Generation Marketing Manager Name | Role | Phone | [...] | | remicade-wee | [place], | [address] | | | | | k 0 | MOLD CHECKER [address] | [place], | | | | | Procedures | [address] | [place] [address] | | | | | [place] | [address] | Phone: | | | | | INFLIXIMAB | [place], | [phone] | | | | | INJECTION, | [place] [address] | Fax: | | | | | 10 MG [place] IV | Phone: | [phone] | | | | | INFUSION, | [phone] | | | | | | THERAP/PROPH | Fax: | | | | | | /[place] | [phone] | | | | | | ITIAL,1ST [...] + + | 12/18/ | Hospital | [facility] | [facility], | Other ulcerative | | 2015 | Encounter | MED CTR OP INFUSION | MAGY SingerP [address] | colitis (HCC) | | | | [address] | [address] | (Primary Dx); | | | | [place], [place] | [place], [place] | Ulcerative colitis, | | | | [address] | [address] | other complication | | | | [phone] | | (HCC) | +--------+ + + [...] 2019 | Office | | [address] | | | | Visit | | [place], | | | | | | [place] [address] | | | | | | [phone] | | | | | | | | +--------+ + + + + | 07/09/ | Virtual | Gastroenterology | Osito Bowen | | | 2019 | Office | | MD Jonathan [address] | | | | Visit | | [place] [address] | | | | | | [phone] | | | | | | | [...]
--- OUTSIDE RECORDS SUMMARY | ~2020-06-03 | XMS | Encounter Summary ---
Demographics + + + | Address | [address] | | | [place] [address] | + + + | Home Phone [...] [place] | | | | | [address] | | + + + + + Care Team Providers + +------+ + | Care Marketing Director Assisted Living Name | Role | Phone | + +------+ + | Carlos Díaz NP | PCP | | + +------+ + Encounter Details +--------+ + + + + | Date | Type | Department | Care Team | Description | +--------+ + + + + | 06/04/ | Orders Only | [facility] [place] | [facility], | | | 2014 | | GASTROENTEROLOGY | KYRA Singer [address] | | | | | [address] [place] | [address] | | | | | [address] [place], [place] | [place], [place] | | | | | [address] | [address] | | | | | [phone] | | | +--------+ + + + [...] | | | | | | [place] [address] | | | | | | [phone] | | | | | | | | +--------+ + + + + | 07/09/ | Virtual | Gastroenterology | Osito Bowen | | | 2019 | Office | | MD Jonathan [address] | | | | Visit | | [place] [address] | | | | | | [phone] | | | | | | | | +--------+ + + + + documented as of this encounter Visit Diagnoses Not on filedocumented in this encounter"
--- OUTSIDE RECORDS SUMMARY | ~2020-06-03 | XMS | Encounter Summary ---
Demographics + + + | Address | [address] | | | [place] [address] | + + + | Home Phone [...] | [place] | | | | | [address] | | + + + + + Care Team Providers + +------+ + | Care Crop Research Scientist Name | Role | Phone | [...] | | | / | colitis, | PLASTICS PRODUCTION MACHINE OPERATOR [address] | SATELLITE TV TECHNICIAN [address] | | | | Gastroenterol | unspecified | [place] | [address] | | | | ogy | Medication | [address], | [address] | | | | | Reasons/moda | [address] | [place], | | | | | /arjun | [place], | [place] [address] | | | | | Procedures | [place] [address] | Phone: | | | | | OFFICE VISIT | Phone: | [phone] | | | | | REGULAR | [phone] | Fax: | | | | | | Fax: | [phone] | | | | | | [phone] | | +--------+--------+ + + + + Encounter Details +--------+ + + + + | Date | Type | Department | Care Team | Description | +--------+ + + + + | 03/11/ | Clinical | [facility] | [place], | Ulcerative colitis, | | 2014 | Support | GASTROENTEROLOGY | KYRA Singer [address] | unspecified (Primary | | | | [address] [place] | [address] | Dx); Iron | | | | [address] [place] | [place] | deficiency anemia, | | | | [address] | [address] | unspecified | | | | [phone] | | | +--------+ + + + [...] | | | | | | [place] [address] | | | | | | [phone] | | | | | | | | +--------+ + + + + | 07/09/ | Virtual | Gastroenterology | Osito Bowen | | | 2019 | Office | | MD Jonathan [address] | | | | Visit | | [place] [address] | | | | | | [phone] | | | | | | | | +--------+ + + + + documented as of this encounter Visit Diagnoses + + | Diagnosis | + + | Ulcerative colitis, unspecified - Primary | + + | Iron deficiency anemia, unspecified | + + documented in this encounter
--- OUTSIDE RECORDS SUMMARY | ~2020-06-03 | XMS | Encounter Summary ---
Demographics + + + | Address | [address] | | | [place] [address] | + + + | Home Phone [...] | [place] | | | | | [address] | | + + + + + Care Team Providers + +------+ + | Care Lei Maker Name | Role | Phone | [...] + + | 11/14/ | Telephone | [facility] | [facility], | Other (Reschedule | | 2014 | | GASTROENTEROLOGY | KYRA Singer [address] | procedure) | | | | [address] [address] | | | | | [address] [place], [place] | [place], [place] | | | | | [address] | [id number] | | | | | [phone] | | | +--------+ + + + [...] call back. Wi ll request results from [facility]. 1:3 0 PM PSTTelephone Encounter - Tahira Avalos RN - 11/14/2014 12:14 PM PSTI do not see that we've received the results. Please call and request results.Electronic ally signed by Tahira Avalos RN at 11/14/2014 12:15 PM PSTTelephone Encounter - Odilon Pinon - 11/14/2014 11:20 AM PSTPatient called in to see if we received her TB test results. Shavonne le said she had it done at the urgent care in [place]. documented in this encounter Plan of Treatment [...] | | | | | | [place] [address] | | | | | | [phone] | | | | | | | | +--------+ + + + + | 07/09/ | Virtual | Gastroenterology | Osito Bowen | | | 2019 | Office | | MD Jonathan [address] | | | | Visit | | [place] [address] | | | | | | [phone] | | | | | | | | +--------+ + + + + documented as of this encounter Visit Diagnoses Not on filedocumented in this encounter"
--- OUTSIDE RECORDS SUMMARY | ~2020-06-03 | XMS | Encounter Summary ---
Demographics + + + | Address | [address] | | | [place] [address] | + + + | Home Phone [...] [place] | | | | | [address] | | + + + + + Care Team Providers + +------+ + | Care Dispatcher Service Or Work Name | Role | Phone | + +------+ + | Carlos Díaz NP | PCP | | + +------+ + Encounter Details +--------+ + + + + | Date | Type | Department | Care Team | Description | +--------+ + + + + | 03/27/ | Documentati | [facility] [place] | [facility], | | | 2014 | on | GASTROENTEROLOGY | KYRA Singer [address] | | | | | [address] [place] | [address] | | | | | [address] [place], [place] | [place], [place] | | | | | [address] | [address] | | | | | [phone] | | | +--------+ + + + [...] encounter Progress Notes Graciela Narayanan, Master of Frogmetrics - 03/27/2015 8:26 AM PDTCalled infusion services [...] | | | | | | [place] [address] | | | | | | [phone] | | | | | | | | +--------+ + + + + | 07/09/ | Virtual | Gastroenterology | Osito Bowen | | | 2019 | Office | | MD Jonathan [address] | | | | Visit | | [place] [address] | | | | | | [phone] | | | | | | | | +--------+ + + + + documented as of this encounter Visit Diagnoses Not on filedocumented in this encounter"
--- OUTSIDE RECORDS SUMMARY | ~2020-06-03 | XMS | Encounter Summary ---
Demographics + + + | Address | [address] | | | [place] [address] | + + + | Home Phone [...] Author + + + | Author | [facility] | | | and [place] | + + + | Organization | [facility] | | | and [place] | + + + | Address | Unknown | + + + | Phone | Unavailable | + + + Support + + + + + | Name | Relationship | Address | Phone | + + + + + | Marilyn Diallo | ECON | [place] | | | | | [address] | | + + + + + Care Team Providers + +------+ + | Care Pick Up Driver Name | Role | Phone | [...] + + | 03/30/ | [facility]ill | [facility] | [facility], | Medication Refill | | 2015 | | GASTROENTEROLOGY | KYRA Singer [address] | | | | | [address] [place] | [address] | | | | | [address] [place], [place] | [place] | | | | | [address] | [address] | | | | | [phone] | | | +--------+--------+ + + + [...] On 03/18 all records were faxed to [facility] and they contacted patient for [...] | | | | | | [place] [address] | | | | | | [phone] | | | | | | | | +--------+ + + + + | 07/09/ | Virtual | Gastroenterology | Osito Bowen | | 2019 | Office | | MD Jonathan [address] | | | | Visit | | [place] [address] | | | | | | [phone] | | | | | | | | +--------+ + + + + documented as of this encounter Visit Diagnoses Not on filedocumented in this encounter"
--- OUTSIDE RECORDS SUMMARY | ~2020-06-03 | XMS | Encounter Summary ---
Demographics + + + | Address | [address] | | | [place] [address] | + + + | Home Phone [...] [place] | | | | | [address] | | + + + + + Care Team Providers + +------+ + | Care Head Cook Name | Role | Phone | + +------+ + | Carlos Díaz NP | PCP | | + +------+ + Encounter Details +--------+ + + + + | Date | Type | Department | Care Team | Description | +--------+ + + + + | 02/09/ | Abstract | [facility] [place] | [facility], | | | 2014 | | GASTROENTEROLOGY | KYRA Singer [address] | | | | | [address] [place] | [address] | | | | | [address] [place], [place] | [place], [place] | | | | | [address] | [address] | | | | | [phone] | | | +--------+ + + + [...] 2019 | Office | | [address] | | | | Visit | | [place], | | | | | | [place] [address] | | | | | | [phone] | | | | | | | | +--------+ + + + + | 07/09/ | Virtual | Gastroenterology | Osito Bowen | | | 2020 | Office | | MD Jonathan [address] | | | | Visit | | [place] [address] | | | | | | [phone] | | | | | | | [...]
--- OUTSIDE RECORDS SUMMARY | ~2020-06-03 | XMS | Encounter Summary ---
Demographics + + + | Address | [address] | | | [place] [address] | + + + | Home Phone [...] [place] | | | | | [address] | | + + + + + Care Team Providers + +------+ + | Care Software Test Engineer Name | Role | Phone | + +------+ + | Lilliana Wheeler | PCP | | | GRADUATE STUDENT | | | + +------+ + Reason [...] Aris | | | Required | | colitis | Lucrecia, | [address] | | | | | ([facility]) | GRADUATE STUDENT [address] | [place], | | | | | Procedures | [address] | [place] [address] | | | | | [place] | [address] | Phone: | | | | | COLONOSCOPY, | [place], | [phone] | | | | | DIAGNOSTIC | [place] [address] | Fax: | | | | | [place] | Phone: | [phone] | | | | | COLONOSCOPY, | [phone] | | | | | | BIOPSY | Fax: | | | | | | | [phone] | | +--------+ + + + + + Reason for Visit +--------+ + | Reason | Comments | +--------+ + | Other | colitis | +--------+ + Evaluate & Treat (Routine) +--------+--------+ + + + + | Status | Reason | Specialty | Diagnoses / | Referred By | Referred To | | | | | Procedures | Contact | Contact | +--------+--------+ + + + + | Closed | | Nurse | Diagnoses | Blood, | Rosamaria, | | | | Practitioner | Anemia, | Lilliana | Lucrecia, | | | | / | unspecified | Jennifer, | GRADUATE STUDENT [address] | | | | Gastroenterol | [place] | GRADUATE STUDENT [address] | [address] | | | | ogy | ulcerative | [address] | [address] | | | | | (chronic) | [place], | [place], | | | | | colitis(556. | [place] [address] | [place] [address] | | | | | 6) (HCC) | Phone: | Phone: | | | | | Colitis/pt/ | [phone] | [phone] | | | | | moda | Fax: | Fax: | | | | | Procedures | [phone] | [phone] | | | | | OFFICE VISIT | | | | | | | REGULAR | | | +--------+--------+ + + + + Encounter Details +--------+---------+ + + + | Date | Type | Department | Care Team | Description | +--------+---------+ + + + | 12/07/ | Office | [facility] | [facility], | Ulcerative colitis | | 2013 | Visit | GASTROENTEROLOGY | KYRA Singer [address] | ([facility]) (Primary Dx) | | | | [address] [place] | [address] | | | | | [address] [place], [place] | [place], [place] | | | | | [address] | [address] | | | | | [phone] | | | +--------+---------+ + + + [...] + + + | Blood Pressure | 110/74 | 12/07/2013 11:03 AM | | | | | PST | | + + + + + | Pulse | 70 | 12/07/2013 11:03 AM | | | | | PST | | + + + + + | Temperature | 36.4 C (97.6 F) | 12/07/2013 11:03 AM | | | | | PST | | + + + + + | Respiratory Rate | 16 | 12/07/2013 11:03 AM | | | | | PST | | + + + + + | Oxygen Saturation | - | - | | + + + + + | Inhaled Oxygen | - | - | | | Concentration | | | | + + + + + | Weight | 83.5 kg (184 lb) | 12/07/2013 11:03 AM | | | | | PST | | + + + + + | Height | 162.6 cm (5' 4") | 12/07/2013 11:03 AM | | | | | PST | | + + + + + | Body Mass Index | 31.58 | 12/07/2013 11:03 AM | | | | | PST | | + + + + + documented in this encounter Progress Notes Lucrecia Blank ARNP - 12/07/2013 11:20 AM PSTFormatting of this note might be [...] of control. Recommended discussion with PCP or RN WELLNESS. Will follow up with results. Patient is [...] [place], | | | | | | [place] [address] | | | | | | [phone] | | | | | | | | +--------+ + + + + | 07/09/ | Virtual | Gastroenterology | Osito Bowen | | | 2019 | Office | | MD Jonathan [address] | | | | Visit | | [place] [address] | | | | | | [phone] | | | | | | | | +--------+ + + + + + + +--------+ + + | Name | Type | Priori | Associated Diagnoses | Order Schedule | | | | ty | | | + + +--------+ + + | Ambulatory referral | Outpatient | Routin | Ulcerative colitis | Expected: | | to Gastroenterology | Referral | e | ([facility]) | 12/25/2013, Expires: | | ([facility]) | | | | 12/07/2014 | + + +--------+ + + documented [...] ST. | [address] | [place] | [phone] | | [facility] | | [address] | | | - LABORATORY | | | | + + + + + | [facility] | [address] | [place] | | | [facility] | | [address] | | | - LABORATORY [...] | [facility] | [address] | [place], [place] | [phone] | | [facility] | | [address] | | | - LABORATORY | | | | + + + + + | [facility] | [address] | [place], [place] | | | [facility] | | [address] [place] [address] | | | - LABORATORY | | [...] | | Cells | | M/uL | [facility] | | | | | | MEDICAL | | | | | | CENTER - | | | | | | LABORATORY | | + + + + + + | Hemoglobin | 9.8 (L) | 11.5 - 16.0 | [facility] | | | | | gm/dL | [facility] | | | | [...] | | | Neutrophils | | | [facility] | | [...] | [facility] | [address] | [place] | [phone] | | [facility] | | [address] | | | - LABORATORY | | | | + + + + + | [facility] | [address] | [place] | | | [facility] | | [address], [facility] | | | - LABORATORY | | | | + + + + + documented in this encounter Visit Diagnoses + + | Diagnosis | + + | Ulcerative colitis (HCC) - Primary Ulcerative colitis, unspecified | + + documented in this encounter
--- OUTSIDE RECORDS SUMMARY | ~2020-06-03 | XMS | Encounter Summary ---
Demographics + + + | Address | [address] | | | [place] [address] | + + + | Home Phone [...] [place] | | | | | [address] | | + + + + + Care Team Providers + +------+ + | Care Oim Consultant Name | Role | Phone | + +------+ + | Lilliana Wheeler | PCP | | | TRANSPORT COORDINATOR | | | + +------+ + Reason [...] [address] | | | | | [address] [place], [place] | [place], [place] | | | | | [address] | [address] | | | | | [phone] | | | +--------+ + + + [...] Telephone Encounter - Graciela Narayanan Master of [employer] - 12/19/2013 8:38 AM PDTSpoke to Danielle [...] | | | | | | [place] [address] | | | | | | [phone] | | | | | | | | +--------+ + + + + | 09/29/ | Virtual | Gastroenterology | Osito Bowen | | | 2019 | Office | | MD Jonathan [address] | | | | Visit | | [place] [address] | | | | | | [phone] | | | | | | | | +--------+ + + + + documented as of this encounter Visit Diagnoses Not on filedocumented in this encounter"
--- OUTSIDE RECORDS SUMMARY | ~2020-06-03 | XMS | Encounter Summary ---
Demographics + + + | Address | [address] | | | [place] [address] | + + + | Home Phone [...] [place] | | | | | [address] | | + + + + + Care Team Providers + +------+ + | Care Box Attacher Name | Role | Phone | [...] + + | 08/16/ | Telephone | [facility] | Osito Bowen | Follow-up (08/17/19 | | 2019 | | GASTROENTEROLOGY | MD Jonathan [address] | reschedule) | | | | [address] | [place] [address] | | | | | [place], [place] | [phone] | | | | | [address] | | | | | | [phone] | | | +--------+ + + + [...] transfer the call to a luna ventura chief substation operator was caller made aware that if [...] | | | | | | [place] [address] | | | | | | [phone] | | | | | | | | +--------+ + + + + | 07/09/ | Virtual | Gastroenterology | Osito Bowen | | | 2020 | Office | | MD Jonathan [address] | | | | Visit | | [place] [address] | | | | | | [phone] | | | | | | | | +--------+ + + + + documented as of this encounter Visit Diagnoses Not on filedocumented in this encounter"
--- OUTSIDE RECORDS SUMMARY | ~2020-06-03 | XMS | Encounter Summary ---
Demographics + + + | Address | [address] | | | [place] [address] | + + + | Home Phone [...] | [place] | | | | | [address] | | + + + + + Care Team Providers + +------+ + | Care Financial Adviser Name | Role | Phone | [...] + + | 11/14/ | Telephone | [facility] | [facility], | Other (Reschedule | | 2014 | | GASTROENTEROLOGY | KYRA Singer [address] | procedure) | | | | [address] [place] | [address] | | | | | [address] [place], [place] | [place], [place] | | | | | [address] | [id number] | | | | | [phone] | | | +--------+ + + + [...] call back. Wi ll request results from [facility]. 1:3 0 PM PSTTelephone Encounter - Tahira Avalos RN - 11/14/2014 12:14 PM PSTI do not see that we've received the results. Please call [facility] and request results.Electronic ally signed by Tahira Avalos RN at 11/14/2014 12:15 PM PSTTelephone Encounter - Odilon Pinon - 11/14/2014 11:20 AM PSTPatient called in to see if we received her TB test results. Shavonne le said she had it done at the urgent care in [place]. documented in this encounter Plan of Treatment [...] | | | | | | [place] [address] | | | | | | [phone] | | | | | | | | +--------+ + + + + | 07/09/ | Virtual | Gastroenterology | Osito Bowen | | | 2019 | Office | | MD Jonathan [address] | | | | Visit | | [place] [address] | | | | | | [phone] | | | | | | | | +--------+ + + + + documented as of this encounter Visit Diagnoses Not on filedocumented in this encounter"
--- OUTSIDE RECORDS SUMMARY | ~2020-06-03 | XMS | Encounter Summary ---
Demographics + + + | Address | [address] | | | [place] [address] | + + + | Home Phone [...] Author + + + | Author | [facility] | | | and [place] | + + + | Organization | [facility] | | | and [place] | + + + | Address | Unknown | + + + | Phone | Unavailable | + + + Support + + + + + | Name | Relationship | Address | Phone | + + + + + | Marilyn Diallo | ECON | [place] | | | | | [address] | | + + + + + Care Team Providers + +------+ + | Care Food Preparation Supervisor Name | Role | Phone | [...] + + | 06/16/ | Telephone | [facility] | [facility], | Appointment | | 2012 | | GASTROENTEROLOGY | KYRA Singer [address] | | | | | [address] [place] | [address] | | | | | [address] [place], [place] | [place], [place] | | | | | [address] | [address] | | | | | [phone] | | | +--------+ + + + [...] | | | | | | [place] [address] | | | | | | [phone] | | | | | | | | +--------+ + + + + | 07/09/ | Virtual | Gastroenterology | Osito Bowen | | 2019 | Office | | MD Jonathan [address] | | | | Visit | | [place] [address] | | | | | | [phone] | | | | | | | | +--------+ + + + + documented as of this encounter Visit Diagnoses Not on filedocumented in this encounter"
--- OUTSIDE RECORDS SUMMARY | ~2020-06-03 | XMS | Encounter Summary ---
Demographics + + + | Address | [address] | | | [place] [address] | + + + | Home Phone [...] | [place] | | | | | [address] | | + + + + + Care Team Providers + +------+ + | Care Fish Culturist Name | Role | Phone | + [...] | | colitis | Lucrecia, | [address] | | | | | Procedures | FURNITURE FINISHER APPRENTICE [address] | [place], | | | | | [place] | [address] | [place] [address] | | | | | INFUSION, | [address] | Phone: | | | | | THERAP/PROPH | [place], | [phone] | | | | | /[place] | [place] [address] | Fax: | | | | | [address]IAL,[address] | Phone: | [phone] | | | | | HOUR [place] | [phone] | | | | | | INFLIXIMAB | Fax: | | | | | | INJECTION, | [phone] | | | | | | 10 MG WSM | | | | | | | OP INF | | | | | | | REMICADE | | | +--------+--------+ + + + + Encounter Details +--------+ + + + + | Date | Type | Department | Care Team | Description | +--------+ + + + + | 08/27/ | Hospital | [facility] | [facility], | Ulcerative colitis, | | 2013 | Encounter | MED CTR OP INFUSION | MAGY SingerP [address] | with rectal bleeding | | | | [address] | [address] | ([facility]) (Primary Dx) | | | | [place], [place] | [place], [place] | | | | | [address] | [address] | | | | | [phone] | | | +--------+ + + + [...] | | | | | | [place] [address] | | | | | | [phone] | | | | | | | | +--------+ + + + + | 07/09/ | Virtual | Gastroenterology | Osito Bowen | | | 2019 | Office | | MD Jonathan [address] | | | | Visit | | [place] [address] | | | | | | [phone] | | | | | | | [...]
--- OUTSIDE RECORDS SUMMARY | ~2020-06-03 | XMS | Encounter Summary ---
Demographics + + + | Address | [address] | | | [place] [address] | + + + | Home Phone [...] Author + + + | Author | [facility] | | | and [place] | + + + | Organization | [facility] | | | and [place] | + + + | Address | Unknown | + + + | Phone | Unavailable | + + + Support + + + + + | Name | Relationship | Address | Phone | + + + + + | Marilyn Diallo | ECON | [place], [place] | | | | | [address] | | + + + + + Care Team Providers + +------+ + | Care Sales Enablement Consultant Name | Role | Phone | [...] | | | | | RUBI GONG [facility] | | | | | | [place], [place] | | | | | | [address] | | | | | | [phone] | | | +--------+ + + + [...] | | | | | | [place] [address] | | | | | | [phone] | | | | | | | | +--------+ + + + + | 07/09/ | Virtual | Gastroenterology | Osito Bowen | | | 2019 | Office | | MD Jonathan [address] | | | | Visit | | [place] [address] | | | | | | [phone] | | | | | | | [...]
--- OUTSIDE RECORDS SUMMARY | ~2020-06-03 | XMS | Encounter Summary ---
Demographics + + + | Address | [address] | | | [place] [address] | + + + | Home Phone [...] [place] | | | | | [address] | | + + + + + Care Team Providers + +------+ + | Care Vocational Psychologist Name | Role | Phone | + [...] + + | 06/04/ | Refill | [facility] | [facility], | Medication Refill | | 2014 | | GASTROENTEROLOGY | KYRA Singer [address] | | | | | [address] [place] | [address] | | | | | [address] [place], [place] | [place] | | | | | [address] | [address] | | | | | [phone] | | | +--------+--------+ + + + [...] | | | | | | [place] [address] | | | | | | [phone] | | | | | | | | +--------+ + + + + | 07/09/ | Virtual | Gastroenterology | Osito Bowen | | 2019 | Office | | MD Jonathan [address] | | | | Visit | | [place] [address] | | | | | | [phone] | | | | | | | | +--------+ + + + + documented as of this encounter Visit Diagnoses Not on filedocumented in this encounter"
--- OUTSIDE RECORDS SUMMARY | ~2020-06-03 | XMS | Clinical Summary ---
Demographics + + + | Address | [address] | | | [place] [address] | + + + | Home Phone [...] [place] | | | | | [address] | | + + + + + Care Team Providers + +------+ + | Care Fish Worm Grower Name | Role | Phone | + [...] Overview: Added automatically from request for surgery [id number] | + + + + + | [...] | | | | | | [place] [address] | | | | | | [phone] | | | | | | | | +--------+ + + + + | 07/09/ | Virtual | Gastroenterology | Osito Bowen | | | 2019 | Office | | MD Jonathan [address] | | | | Visit | | [place] [address] | | | | | | [phone] | | | | | | | [...] | [employer] | [employer] | [id number] | 11/13/19 | [phone] | | Medica | | MEDICAID HMO | HEALTH | | 14-Pre | 1 | | id | | | MDCD | | sent | | | | | | [place] | | | | | | + +--------+ +--------+ +---------+--------+ | [employer] | [employer] | [id number] | | [phone] | | Medica | | MEDICAID HMO [...] | | al/Fam | | 1980 | [phone] | [place] | | | lucia | | | 4 (Home) | [address] | | | | | | [phone] | | | | | | | 1 (Work) | | + +--------+ +--------+ + + | Ria Hastings | Person | Self | [birth year] | [address] | | | al/Fam | | 1980 | [phone] | [place] | | | [place]ia | | | 4 (Home) | [address] | + +--------+ +--------+ + + Advance Directives + + + + + | Type | Date Recorded | Patient | Explanation | | | | Blocking Machine Operator | | + + + + + | Power of | | | | | Whirley Operator | | | | + + + + + | Advance | 11/27/2014 8:47 | | | | Directive | AM | | | + + + + +
--- OUTSIDE RECORDS SUMMARY | ~2020-06-03 | XMS | Encounter Summary ---
Demographics + + + | Address | [address] | | | [place] [address] | + + + | Home Phone [...] [place] | | | | | [address] | | + + + + + Care Team Providers + +------+ + | Care Quantitative Manager Name | Role | Phone | [...] + + | 05/22/ | Telephone | [facility] | Osito Bowen | Other | | 2020 | | GASTROENTEROLOGY | MD Jonathan [address] | | | | | [address] | [place] [address] | | | | | [place], [place] | [phone] | | | | | [address] | | | | | | [phone] | | | +--------+ + + + [...] Miscellaneous Notes Telephone Encounter - Josefina Olmos, Dry Kiln Operator - 05/23/2020 11:39 AM PDTForm atting of [...] 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 Patient stat es "then why has Dr. [...] if she desires. Patient was transferred to Forest Fire Fighter to schedule f/u wi th VENEER MEASURER sooner. Thanks mvd Telephone Encounter - Graciela Narayanan CMA - 05/11/2018 0851 PDT Left message for patient that Danielle thinks she should continue her care in [place] due to her non compliance with our [...] 12, 2019 Me Spoke to Destiny from [facility] insurance, she stated that she spoke [...] infusion setting. elephone Encounter - Shelia Tuttle Dry Kiln Operator - 05/23/2020 11:30 AM PDTPatient c davidd back and I relayed the message to her from Dr. Bowen and got her scheduled for Zo om apt. P DTTelephone Encounter - Josefina Olmos Dry Kiln Operator - 05/23/2020 10:16 AM PDTCal led pt [...] 9:51 AM PDTTelephone Encounter - Ayah Castillo Dry Kiln Operator - 05/22/2020 4:21 PM PDTPatient called in and requested anot her Dr to refill her medication. Send refill request to [facility] elephone Encounter - Josefina Olmos Medic al [place] - 05/22/2020 11:46 AM PDTPatient was informed that Dr. Bowen is on vacatio n and that he would refill if able to when he came back to work. Patient verbalized understa nding. Thanks mvd Electronically signed by Marge Purdy Assistant at 020 11:47 AM PDTTelephone Encounter - Josefina Olmos Dry Kiln Operator - 05/22/2020 1 1:46 AM PDT----- Message [...] | | | | | | [place] [address] | | | | | | [phone] | | | | | | | | +--------+ + + + + | 07/09/ | Virtual | Gastroenterology | Osito Bowen | | | 2020 | Office | | MD Jonathan [address] | | | | Visit | | [place] [address] | | | | | | [phone] | | | | | | | | +--------+ + + + + documented as of this encounter Visit Diagnoses Not on filedocumented in this encounter
--- OUTSIDE RECORDS SUMMARY | ~2020-06-03 | XMS | Encounter Summary ---
Demographics + + + | Address | [address] | | | [place] [address] | + + + | Home Phone [...] [place] | | | | | [address] | | + + + + + Care Team Providers + +------+ + | Care Electronic Gluer Name | Role | Phone | + +------+ + PCP | Unavailable | + +------+ + Encounter Details +--------+ + + + + | Date | Type | Department | Care Team | Description | +--------+ + + + + | 02/10/ | Hospital | [facility] | | | | 2011 | Encounter | MED CTR LABORATORY | | | | | | [address] | | | | | | [place] | | | | | | [address] | | | | | | [phone] | | | +--------+ + + + [...] | | | | | | [place] [address] | | | | | | [phone] | | | | | | | | +--------+ + + + + | 07/09/ | Virtual | Gastroenterology | Osito Bowen | | | 2019 | Office | | MD Jonathan [address] | | | | Visit | | [place] [address] | | | | | | [phone] | | | | | | | [...] + | [facility] | [address] | [place], [place] | [phone] | | [facility] | | [address] | | | - LABORATORY | | | | + + + + + | [facility] | [address] | [place], [place] | | | [facility] | | [address], [facility] | | | - LABORATORY | [...] + | [facility] | [address] | [place], [place] | [phone] | | [facility] | | [address] | | | - LABORATORY | | | | + + + + + | [facility] | [address] | [place], [place] | | | [facility] | | [address], [facility] | | | - LABORATORY | [...] [address] | [place] | [phone] | | [facility] | | [address] | | | - LABORATORY | | | | + + + + + | [facility]. | [address] | [place] | | | [facility] | | [address] | | | - LABORATORY | | | | + + + + + documented in this encounter Visit Diagnoses Not on filedocumented in this encounter"
--- OUTSIDE RECORDS SUMMARY | ~2020-06-03 | XMS | Encounter Summary ---
Demographics + + + | Address | [address] | | | [place] [address] | + + + | Home Phone [...] | [place] | | | | | [address] | | + + + + + Care Team Providers + +------+ + | Care Pull Through Hooker Name | Role | Phone | + [...] + + | 11/26/ | Telephone | [facility] | Aris Schmid MD | Other (bowel prep | | 2015 | | GASTROENTEROLOGY | [address] | question) | | | | [address] [facility] | [place], [place] | | | | | [address] [place], [place] | [address] | | | | | [address] | [phone] | | | | | [phone] | | | +--------+ + + + [...] 2019 | Office | | [address] | | | | Visit | | [place] | | | | | | [place] [address] | | | | | | [phone] | | | | | | | | +--------+ + + + + | 07/09/ | Virtual | Gastroenterology | Osito Bowen | | 2019 | Office | | MD Jonathan [address] | | | | Visit | | [place] [address] | | | | | | [phone] | | | | | | | | +--------+ + + + + documented as of this encounter Visit Diagnoses Not on filedocumented in this encounter"
--- OUTSIDE RECORDS SUMMARY | ~2020-06-03 | XMS | Encounter Summary ---
Demographics + + + | Address | [address] | | | [place] [address] | + + + | Home Phone [...] | [place] | | | | | [address] | | + + + + + Care Team Providers + +------+ + | Care Field Cane Scaler Name | Role | Phone | + [...] | | colitis | Lucrecia, | [address] | | | | | Procedures | INFORMATION CLERK BROKERAGE [address] | [place], | | | | | [place] IV | [address] | [place] [address] | | | | | INFUSION, | [address] | Phone: | | | | | THERAP/PROPH | [place], | [phone] | | | | | /[place] | [place] [address] | Fax: | | | | | [address]IAL,1ST | Phone: | [phone] | | | | | HOUR [place] | [phone] | | | | | | INFLIXIMAB | Fax: | | | | | | INJECTION, | [phone] | | | | | | 10 MG WSM | | | | | | | OP INF | | | | | | | REMICADE | | | +--------+--------+ + + + + Encounter Details +--------+ + + + + | Date | Type | Department | Care Team | Description | +--------+ + + + + | 02/18/ | Hospital | [facility] | [facility], | Ulcerative colitis, | | 2015 | Encounter | MED CTR OP INFUSION | KYRA Singer [address] | other complication | | | | [address] | [address] | ([facility]); Ulcerative | | | | [place], [place] | [place], [place] | colitis, with rectal | | | | [address] | [address] | bleeding ([facility]) | | | | [phone] | | | +--------+ + + + [...] [place], | | | | | | [place] [address] | | | | | | [phone] | | | | | | | | +--------+ + + + + | 07/09/ | Virtual | Gastroenterology | Osito Bowen | | | 2019 | Office | | MD Jonathan [address] | | | | Visit | | [place] [address] | | | | | | [phone] | | | | | | | [...]
--- OUTSIDE RECORDS SUMMARY | ~2020-06-03 | XMS | Encounter Summary ---
Demographics + + + | Address | [address] | | | [place] [address] | + + + | Home Phone [...] [place] | | | | | [address] | | + + + + + Care Team Providers + +------+ + | Care Any Commodity Sales Deliverer Name | Role | Phone | + [...] + + | 06/17/ | Telephone | [facility] [place] | [facility] | Lab Order | | 2015 | | GASTROENTEROLOGY | KYRA Singer [address] | | | | | [address] [place] | [address] | | | | | [address] [place], [place] | [place], [place] | | | | | [address] | [address] | | | | | [phone] | | | +--------+ + + + [...] Miscellaneous Notes Telephone Encounter - Graciela Narayanan Top Cleaner - 06/17/2016 3:19 PM PDTSent p atient [...] | | | | | | [place] [address] | | | | | | [phone] | | | | | | | | +--------+ + + + + | 07/09/ | Virtual | Gastroenterology | Osito Bowen | | | 2020 | Office | | MD Jonathan [address] | | | | Visit | | [place] [address] | | | | | | [phone] | | | | | | | [...]
--- OUTSIDE RECORDS SUMMARY | ~2020-06-03 | XMS | Encounter Summary ---
Demographics + + + | Address | [address] | | | [place] [address] | + + + | Home Phone [...] [place] | | | | | [address] | | + + + + + Care Team Providers + +------+ + | Care Commonwealth Attorney Name | Role | Phone | [...] + + | 07/26/ | Telephone | [facility] | [facility], | Other | | 2012 | | GASTROENTEROLOGY | KYRA Singer [address] | | | | | [address] [place] | [address] | | | | | [address] [place], [place] | [place], [place] | | | | | [address] | [address] | | | | | [phone] | | | +--------+ + + + [...] questions about quantity of medication. Please call [phone] signed by Valeriy barr at 07/26/2013 3:49 [...] | | | | | | [place] [address] | | | | | | [phone] | | | | | | | | +--------+ + + + + | 07/09/ | Virtual | Gastroenterology | Osito Bowen | | | 2019 | Office | | MD Jonathan [address] | | | | Visit | | [place] [address] | | | | | | [phone] | | | | | | | | +--------+ + + + + documented as of this encounter Visit Diagnoses Not on filedocumented in this encounter"
--- OUTSIDE RECORDS SUMMARY | ~2020-06-03 | XMS | Encounter Summary ---
Demographics + + + | Address | [address] | | | [place] [address] | + + + | Home Phone [...] [place] | | | | | [address] | | + + + + + Care Team Providers + +------+ + | Care Bagel Maker Name | Role | Phone | [...] + + | 11/27/ | Telephone | [facility] | [facility], | [facility] | | 2014 | | GASTROENTEROLOGY | KYRA Singer [address] | | | | | [address] [place] | [address] | | | | | [address] [place], [place] | [place], [place] | | | | | [address] | [address] | | | | | [phone] | | | +--------+ + + + [...] | | | | | | [place] [address] | | | | | | [phone] | | | | | | | | +--------+ + + + + | 07/09/ | Virtual | Gastroenterology | Osito Bowen | | | 2019 | Office | | MD Jonathan [address] | | | | Visit | | [place] [address] | | | | | | [phone] | | | | | | | | +--------+ + + + + documented as of this encounter Visit Diagnoses Not on filedocumented in this encounter"
--- OUTSIDE RECORDS SUMMARY | ~2020-06-03 | XMS | Encounter Summary ---
Demographics + + + | Address | [address] | | | [place] [address] | + + + | Home Phone [...] | [place] | | | | | [address] | | + + + + + Care Team Providers + +------+ + | Care Railway Engineer Name | Role | Phone | + +------+ + | Lilliana Wheeler | PCP | | | LAND DEPARTMENT HEAD | | | + +------+ + Reason [...] 11/29/ | Telephone | [facility] [place] | [facility], | Other (Prior | | 2013 | | GASTROENTEROLOGY | KYRA Singer [address] | authorization) | | | | [address] [place] | [address] | | | | | [address] [place] | [place] | | | | | [address] | [address] | | | | | [phone] | | | +--------+ + + + [...] auth orization for Asacol to Rory-kirstin from [facility]. It has been approved from November 23, [...] 2019 | Office | | [address] | | | | Visit | | [place] | | | | | | [place] [address] | | | | | | [phone] | | | | | | | | +--------+ + + + + | 07/09/ | Virtual | Gastroenterology | Osito Bowen | | 2019 | Office | | MD Jonathan [address] | | | | Visit | | [place] [address] | | | | | | [phone] | | | | | | | | +--------+ + + + + documented as of this encounter Visit Diagnoses Not on filedocumented in this encounter"
--- OUTSIDE RECORDS SUMMARY | ~2020-06-03 | XMS | Encounter Summary ---
Demographics + + + | Address | [address] | | | [place] [address] | + + + | Home Phone [...] Author + + + | Author | [facility] | | | and [place] | + + + | Organization | [facility] | | | and [place] | + + + | Address | Unknown | + + + | Phone | Unavailable | + + + Support + + + + + | Name | Relationship | Address | Phone | + + + + + | Marilyn Diallo | ECON | [place] | | | | | [address] | | + + + + + Care Team Providers + +------+ + | Care Silk Presser Name | Role | Phone | + +------+ + | Carlos Díaz NP | PCP | | + +------+ + Encounter Details +--------+ + + + + | Date | Type | Department | Care Team | Description | +--------+ + + + + | 04/17/ | Documentati | [facility] [place] | [facility], | | | 2016 | on | GASTROENTEROLOGY | KYRA Singer [address] | | | | | [address] | [address] | | | | | [address] [place], [place] | [place], [place] | | | | | [address] | [address] | | | | | [phone] | | | +--------+ + + + [...] to fax all records to [facility] for 2nd opinion on UC documented [...] | | | | | | [place] [address] | | | | | | [phone] | | | | | | | | +--------+ + + + + | 07/09/ | Virtual | Gastroenterology | Osito Bowen | | 2019 | Office | | MD Jonathan [address] | | | | Visit | | [place] [address] | | | | | | [phone] | | | | | | | | +--------+ + + + + documented as of this encounter Visit Diagnoses Not on filedocumented in this encounter"
--- OUTSIDE RECORDS SUMMARY | ~2020-06-03 | XMS | Encounter Summary ---
Demographics + + + | Address | [address] | | | [place] [address] | + + + | Home Phone [...] [place] | | | | | [address] | | + + + + + Care Team Providers + +------+ + | Care Bezel Cutter Name | Role | Phone | [...] | | | / | colitis, | CALF SKINNER [address] | [address] LANDSCAPE ARCHITECT [address] | | | | Gastroenterol | unspecified | [facility] | [address] | | | | ogy | follow up | QU[address], | [address] | | | | | ulcerative | [address] | [place], | | | | | colits-per | [place], | [place] [address] | | | | | lexus/pcp | [place] [address] | Phone: | | | | | arjun/mod | Phone: | [phone] | | | | | a | [phone] | Fax: | | | | | Procedures | Fax: | [phone] | | | | | OFFICE VISIT | [phone] | | | | | | REGULAR | | | +--------+--------+ + + + + Encounter Details +--------+---------+ + + + | Date | Type | Department | Care Team | Description | +--------+---------+ + + + | 01/15/ | Office | [facility] | [facility], | Ulcerative colitis, | | 2013 | Visit | GASTROENTEROLOGY | KYRA Singer [address] | unspecified | | | | [address] | [address] | complication (HCC) | | | | [address] [place], [place] | [place], [place] | (Primary Dx) | | | | [address] | [address] | | | | | [phone] | | | +--------+---------+ + + + [...] COLONOSCOPY performed by Aris Schmid MD at [facility] MEDICAL PROCEDURE UNIT Family History Problem Relation [...] [place], | | | | | | [place] [address] | | | | | | [phone] | | | | | | | | +--------+ + + + + | 07/09/ | Virtual | Gastroenterology | Osito Bowen | | | 2019 | Office | | MD Jonathan [address] | | | | Visit | | [place] [address] | | | | | | [phone] | | | | | | | | +--------+ + + + + documented as of this encounter Visit Diagnoses + + | Diagnosis | + + | Ulcerative colitis, unspecified complication - Primary | + + documented in this encounter"
--- OUTSIDE RECORDS SUMMARY | ~2020-06-03 | XMS | Encounter Summary ---
Demographics + + + | Address | [address] | | | [place] [address] | + + + | Home Phone [...] | [place] | | | | | [address] | | + + + + + Care Team Providers + +------+ + | Care Hydraulic Controls Technician Name | Role | Phone | [...] | | Practitioner | Ulcerative | Carlos Rosenbamu, | [place], | | | | / | colitis, | STUDENT SERVICES COORDINATOR [address] | MANAGER DEVELOPMENTAL [address] | | | | Gastroenterol | unspecified | [facility] | [address] | | | | ogy | Medication | [address], | [address] | | | | | Reasons/moda | [address] | [place], | | | | | /arjun | [place], | [place] [address] | | | | | Procedures | [place] [address] | Phone: | | | | | OFFICE VISIT | Phone: | [phone] | | | | | REGULAR | [phone] | Fax: | | | | | | Fax: | [phone] | | | | | | [phone] | | +--------+--------+ + + + + [...] | deficiency anemia, | | | | [address] | [address] | unspecified | | | | [phone] | | | +--------+ + + + [...] + documented in this encounter Progress Notes Tahiar Avalos RN - 03/11/2015 1:34 PM PDTPatient [...] 2019 | Office | | [address] | | | | Visit | | [place], | | | | | | [place] [address] | | | | | | [phone] | | | | | | | | +--------+ + + + + | 07/09/ | Virtual | Gastroenterology | Osito Bowen | | | 2019 | Office | | MD Jonathan [address] | | | | Visit | | [place] [address] | | | | | | [phone] | | | | | | | | +--------+ + + + + documented as of this encounter Visit Diagnoses + + | Diagnosis | + + | Ulcerative colitis, unspecified - Primary | + + | Iron deficiency anemia, unspecified | + + documented in this encounter
--- OUTSIDE RECORDS SUMMARY | ~2020-06-03 | XMS | Encounter Summary ---
Demographics + + + | Address | [address] | | | [place] [address] | + + + | Home Phone [...] + | Marilyn Diallo | ECON | [place] | | | | | [address] | | + + + + + Care Team Providers + +------+ + | Care Enterprise Business Architect Name | Role | Phone | + [...] [address] | | | | | 210 [place], [place] | [place], [place] | | | | | [address] | [address] | | | | | [phone] | | | +--------+ + + + [...] 2019 | Office | | [address] | | | | Visit | | [place], | | | | | | [place] [address] | | | | | | [phone] | | | | | | | | +--------+ + + + + | 07/09/ | Virtual | Gastroenterology | Osito Bowen | | | 2020 | Office | | MD Jonathan [address] | | | | Visit | | [place] [address] | | | | | | [phone] | | | | | | | | +--------+ + + + + documented as of this encounter Visit Diagnoses Not on filedocumented in this encounter"
--- OUTSIDE RECORDS SUMMARY | ~2020-06-03 | XMS | Encounter Summary ---
Demographics + + + | Address | [address] | | | [place] [address] | + + + | Home Phone [...] [place] | | | | | [address] | | + + + + + Care Team Providers + +------+ + | Care Spine Supervisor Name | Role | Phone | + +------+ + | Carlos Díaz NP | PCP | | + +------+ + Encounter Details +--------+ + + + + | Date | Type | Department | Care Team | Description | +--------+ + + + + | 02/09/ | Abstract | [facility] [place] | [facility], | | | 2014 | | GASTROENTEROLOGY | KYRA Singer [address] | | | | | [address] [place] | [address] | | | | | [address] [place], [place] | [place], [place] | | | | | [address] | [address] | | | | | [phone] | | | +--------+ + + + [...] 2019 | Office | | [address] | | | | Visit | | [place], | | | | | | [place] [address] | | | | | | [phone] | | | | | | | | +--------+ + + + + | 07/09/ | Virtual | Gastroenterology | Osito Bowen | | | 2020 | Office | | MD Jonathan [address] | | | | Visit | | [place] [address] | | | | | | [phone] | | | | | | | [...]
--- OUTSIDE RECORDS SUMMARY | ~2020-06-03 | XMS | Encounter Summary ---
Demographics + + + | Address | [address] | | | [place] [address] | + + + | Home Phone [...] [place] | | | | | [address] | | + + + + + Care Team Providers + +------+ + | Care Doughnut Glazier Name | Role | Phone | + [...] | | | | | complication | [address] | | | | | | ([facility]) | Phone: | | | | | | Procedures | [phone] | | | | | | 03/10>PEND | Fax: | | | | | | REPLY FROM | [phone] | | | | | | PROVIDER [...] | | | / | colitis, | FINANCIAL SERVICES REP [address] | ORDER RUNNER [address] | | | | Gastroenterol | unspecified, | [facility] | [address] | | | | ogy | without | [address], | [address] | | | | | complication | [address] | [place], | | | | | s ([facility]) | [place], | [place] [address] | | | | | Follow [place] | [place] [address] | Phone: | | | | | per | Phone: | [phone] | | | | | Gela/self/E | [phone] | Fax: | | | | | SERGIOO/Jimbo | Fax: | [phone] | | | | | r | [phone] | | | | | | Procedures | | | | | | | OFFICE VISIT | | | | | | | REGULAR | | | +--------+--------+ + + + + Encounter Details +--------+---------+ + + + | Date | Type | Department | Care Team | Description | +--------+---------+ + + + | 03/10/ | Office | [facility] | [facility], | Ulcerative colitis, | | 2016 | Visit | GASTROENTEROLOGY | KYRA Singer [address] | unspecified with | | | | [address] [place] | [address] | other complication | | | | 210 [place], [place] | [place], [place] | ([facility]) (Primary Dx) | | | | [address] | [address] | | | | | [phone] | | | +--------+---------+ + + + [...] - 03/10/2016 12:27 PM PDTReferral [facility]. Will send records once approved. [facility]inton[facility], ORDER RUNNER - 03/10/2016 11:57 AM PDTFormatt ing of [...] pain. Is scheduled to see rheumatology in [place] in about 4 wee ks. Had been [...] Laterality: N/A; Surgeon: Aris Schmid MD; Location: [facility] MEDICAL PROCE DURE UNIT Colonoscopy N/A 11/27/2014 Procedure: COLONOSCOPY; Surgeon: Aris Schmid MD; Location: [facility] MEDICAL PROCEDURE UNI T Sigmoid colon bx [...] like to have referral to GI in [place] for additional options for her ulcerative colitis. [...] Nutrition: Do to our climate in the [facility], recommend periodic vitamin D testin g I [...] | | | | | | [place] [address] | | | | | | [phone] | | | | | | | | +--------+ + + + + | 07/09/ | Virtual | Gastroenterology | Osito Bowen | | | 2019 | Office | | MD Jonathan [address] | | | | Visit | | [place] [address] | | | | | | [phone] | | | | | | | [...] [address] | [place] | [phone] | | [facility] | | [address] | | | - LABORATORY | | [...] + | [address] | [address] | [place] | [phone] | | [facility] | | [address] | | | - LABORATORY | | [...] [address] | [place] | [phone] | | [facility] | | [address] | | | - LABORATORY | | | | + + + + + documented in this encounter Visit Diagnoses + + | Diagnosis | + + | Ulcerative colitis, unspecified with other complication (HCC) - Primary | + + documented in this encounter
--- OUTSIDE RECORDS SUMMARY | ~2020-06-03 | XMS | Encounter Summary ---
Demographics + + + | Address | [address] | | | [place] [address] | + + + | Home Phone [...] | [place] | | | | | [address] | | + + + + + Care Team Providers + +------+ + | Care Welt Maker Name | Role | Phone | [...] | | | / | colitis, | GENERATION MECHANIC HELPER [address] | DIRECTOR VISUAL [address] | | | | Gastroenterol | unspecified | [facility] | [address] | | | | ogy | follow up | [address], | [address] | | | | | ulcerative | [address] | [place], | | | | | colitis/per | [place], | [place] [address] | | | | | lexus/moda | [place] [address] | Phone: | | | | | Procedures | Phone: | [phone] | | | | | OFFICE VISIT | [phone] | Fax: | | | | | REGULAR | Fax: | [phone] | | | | | | [phone] | | +--------+--------+ + + + + Encounter Details +--------+---------+ + + + | Date | Type | Department | Care Team | Description | +--------+---------+ + + + | 08/14/ | Office | [facility] | [facility], | Ulcerative colitis, | | 2013 | Visit | GASTROENTEROLOGY | KYRA Singer [address] | with rectal bleeding | | | | [address] [place] | [address] | ([facility]) (Primary Dx) | | | | [address] [place], [place] | [place], [place] | | | | | [address] | [address] | | | | | [phone] | | | +--------+---------+ + + + [...] COLONOSCOPY performed by Aris Schmid MD at [facility] MEDICAL PROCEDURE UNIT Family History Problem [...] 2019 | Office | | [address] | | | | Visit | | [place], | | | | | | [place] [address] | | | | | | [phone] | | | | | | | | +--------+ + + + + | 07/09/ | Virtual | Gastroenterology | Osito Bowen | | | 2019 | Office | | MD Jonathan [address] | | | | Visit | | [place] [address] | | | | | | [phone] | | | | | | | [...]
--- OUTSIDE RECORDS SUMMARY | ~2020-06-03 | XMS | Encounter Summary ---
Demographics + + + | Address | [address] | | | [place] [address] | + + + | Home Phone [...] | [place] | | | | | [address] | | + + + + + Care Team Providers + +------+ + | Care Quality Assurance Supervisor Name | Role | Phone | [...] + + | 01/08/ | Telephone | [facility] | [facility], | Medication | | 2015 | | GASTROENTEROLOGY | KYRA Singer [address] | Management | | | | [address] [place] | [address] | | | | | [address] [place], [place] | [place], [place] | | | | | [address] | [address] | | | | | [phone] | | | +--------+ + + + [...] Miscellaneous Notes Telephone Encounter - Graciela Narayanan [employer] Professor - 01/13/2016 12:18 PM PDTNoted. ele phone Encounter - Rocio Woods - 01/09/2016 12:09 PM PDTQueenie from [employer] called in regards to patients medications. Stated that they have attempted multiple times to contact the patient with no success and will be putting her medications on hold until they can get i n touch with the patient to set up a date for delivery. If needed any sales development representative can be reached at [phone]. d ocumented in this encounter Plan of Treatment +--------+ + + + + | Date | Type | Specialty | Care Team | Description | +--------+ + + + + | 06/04/ | Virtual | Gastroenterology | Natalie, | | | 2019 | Office | | [address] | | | | Visit | | [place] | | | | | | [place] [address] | | | | | | [phone] | | | | | | | | +--------+ + + + + | 07/09/ | Virtual | Gastroenterology | Osito Bowen | | 2019 | Office | | MD Jonathan [address] | | | | Visit | | [place] [address] | | | | | | [phone] | | | | | | | | +--------+ + + + + documented as of this encounter Visit Diagnoses Not on filedocumented in this encounter"
--- OUTSIDE RECORDS SUMMARY | ~2020-06-03 | XMS | Encounter Summary ---
Demographics + + + | Address | [address] | | | [place] [address] | + + + | Home Phone [...] [place] | | | | | [address] | | + + + + + Care Team Providers + +------+ + | Care Card Cutter Helper Name | Role | Phone | [...] | | Services | | UC | [facility], | Not, In | | | Required | | (ulcerative | [place], | System | | | | | colitis), | PRODUCTION OFFICER [address] | [place] | | | | | with rectal | [address] | Health and | | | | | bleeding | [address] | Service | | | | | Iron | [place], | | | | | | deficiency | [place] [address] | | | | | | anemia, | Phone: | | | | | | unspecified | [phone] | | | | | | Procedures | Fax: | | | | | | CHG | [phone] | | | | | | CLINICAL | | | | | | | CHEMISTRY | | | | | | | TEST [id number]- | | | | | | | [...] | | | / | colitis, | DOORPERSON OR LUGGAGE PORTER [address] | PRODUCTION OFFICER [address] | | | | Gastroenterol | unspecified | [facility] | [address] | | | | ogy | follow up | [address], | [address] | | | | | procedure/mo | [address] | [place], | | | | | fely/arjun | [place], | [place] [address] | | | | | Procedures | [place] [address] | Phone: | | | | | OFFICE | Phone: | [phone] | | | | | VISIT | [phone] | Fax: | | | | | REGULAR | Fax: | [phone] | | | | | | [phone] | | +--------+--------+ + + + + Encounter Details +--------+---------+ + + + | Date | Type | Department | Care Team | Description | +--------+---------+ + + + | 01/24/ | Office | [facility] | [facility], | UC (ulcerative | | 2015 | Visit | GASTROENTEROLOGY | KYRA Singer [address] | colitis), with | | | | [address] [place] | [address] | rectal bleeding | | | | [address] [place], [place] | [place], [place] | ([facility]) (Primary Dx); | | | | [address] | [address] | Iron deficiency | | | | [phone] | | anemia | +--------+---------+ + + [...] Laterality: N/A; Surgeon: Aris Schmid MD; Location: [facility] MEDICAL PROCE DURE UNIT Colonoscopy N/A 11/27/2014 Procedure: COLONOSCOPY; Surgeon: Aris Schmid MD; Location: [facility] MEDICAL PROCEDURE UNI T Sigmoid [...] [place] | | | | | | [place] [address] | | | | | | [phone] | | | | | | | | +--------+ + + + + | 07/09/ | Virtual | Gastroenterology | Osito Bowen | | | 2019 | Office | | MD Jonathan [address] | | | | Visit | | [place] [address] | | | | | | [phone] | | | | | | | [...] Referral | e | with rectal | ([facility]), | | ([facility] [employer]) | | | bleeding (HCC) | Expires: 01/24/2016 | + + +--------+ + + documented as of this encounter Visit Diagnoses + + | Diagnosis | + + | UC (ulcerative colitis), with rectal bleeding - Primary | + + | Iron deficiency anemia Iron deficiency anemia, unspecified | + + documented in this encounter
--- OUTSIDE RECORDS SUMMARY | ~2020-06-03 | XMS | Encounter Summary ---
Demographics + + + | Address | [address] | | | [place] [address] | + + + | Home Phone [...] | Author | [facility] | | | and [place] | + [...] [place] | | | | | [address] | | + + + + + Care Team Providers + +------+ + | Care Operations Agent Name | Role | Phone | [...] + + | 07/03/ | Telephone | [facility] [place] | [facility], | Results (labs) | | 2013 | | GASTROENTEROLOGY | KYRA Sinegr [address] | | | | | [address] [place] | [address] | | | | | 210 [place], [place] | [place], [place] | | | | | [address] | [address] | | | | | [phone] | | | +--------+ + + + [...] Telephone Encounter - Graciela Narayanan [employer] of [employer] - 07/03/2014 2:04 PM PDTPatient a lso said she has been off prednisone 5 or 6 weeks. elephone Encounter - Graciela Narayanan [employer] - 07/03/2014 1:17 PM Mark Rollins her lab results. She said she is having problems with her colitis. 6-7 loose stools per day, abdominal pain. She does have heavy bleeding wi th her periods also. She is scheduled to come in to see Danielle 07/09/14. Electronically shannan d by Graciela Narayanan [employer] of [employer] at 07/03/2014 1:21 PM PDTdocumented in this encounte r Plan of Treatment +--------+ + + + + | Date | Type | Specialty | Care Team | Description | +--------+ + + + + | 06/04/ | Virtual | Gastroenterology | Natalie, | | | 2019 | Office | | [address] | | | | Visit | | [place] | | | | | | [place] [address] | | | | | | [phone] | | | | | | | | +--------+ + + + + | 07/09/ | Virtual | Gastroenterology | Osito Bowen | | 2019 | Office | | MD Jonathan [address] | | | | Visit | | [place] [address] | | | | | | [phone] | | | | | | | | +--------+ + + + + documented as of this encounter Visit Diagnoses Not on filedocumented in this encounter"
--- OUTSIDE RECORDS SUMMARY | ~2020-06-03 | XMS | Encounter Summary ---
Demographics + + + | Address | [address] | | | [place] [address] | + + + | Home Phone [...] [place] | | | | | [address] | | + + + + + Care Team Providers + +------+ + | Care Fudge Candy Maker Name | Role | Phone | [...] + | 11/07/ | Telephone | [facility] [place] | [place], | Other | | 2014 | | GASTROENTEROLOGY | KYRA Singer [address] | | | | | [address] [place] | [address] | | | | | [address] [place], [place] | [place], [place] | | | | | [address] | [address] | | | | | [phone] | | | +--------+ + + + [...] - Graciela Narayanan Master of Arts - 11/07/2014 12:07 PM PSTThe order s have now been faxed. 15 12:07 PM PSTTelephone Encounter - Litzy Costa - 11/07/2014 11:57 AM PSTShe would lik e them done at [facility] in [place]. elephone Encounter - Graciela Narayanan Master of [employer] - 11/07/2014 10:21 AM PSTHave lab orders [...] 2019 | Office | | [address] | | | | Visit | | [place] | | | | | | [place] [address] | | | | | | [phone] | | | | | | | | +--------+ + + + + | 07/09/ | Virtual | Gastroenterology | Osito Bowen | | 2019 | Office | | MD Jonathan [address] | | | | Visit | | [place] [address] | | | | | | [phone] | | | | | | | | +--------+ + + + + documented as of this encounter Visit Diagnoses Not on filedocumented in this encounter"
--- OUTSIDE RECORDS SUMMARY | ~2020-06-03 | XMS | Encounter Summary ---
Demographics + + + | Address | [address] | | | [place] [address] | + + + | Home Phone [...] + | Marilyn Diallo | ECON | [place] | | | | | [address] | | + + + + + Care Team Providers + +------+ + | Care Logistics Engineer Name | Role | Phone | [...] [place] | | | | | [facility] [place] | [address] | | | | | [address] | | | | | | [phone] | | | +--------+ + + + [...] | | | | | | [place] [address] | | | | | | [phone] | | | | | | | | +--------+ + + + + | 07/09/ | Virtual | Gastroenterology | Osito Bowen | | | 2020 | Office | | MD Jonathan [address] | | | | Visit | | [place] [address] | | | | | | [phone] | | | | | | | [...] | | | 0.73 m/s MV Dec [place]: 5.74 m/s2 MV DecT: 220.15 ms MV E | | | [place]: 1.26 m/s MV E/A Ratio: 1.71 E/E' Sept: 10.36 E' Lat: | | | 0.13 m/s E' Sept: 0.12 m/s RAP: 15 mmHg RV S': 0.18 m/s | | | RVSP: 42.23 mmHg TR maxP.23 mmHg TR Vmax: 2.60 m/s | | | Services Mgr: Authenticated by: Shayla Eastman MD Report | | | Date/Time: -- [id number] | | + + + + + [...] mlLAESV Index (A-L): 22.91 ml/m2LAAs A2C: 15.64 [id number] A-L A2C: 44.31 | | mlLAESV MOD A2C: 43.57 mlLALs A2C: 4.68 cmLAAs A4C: 15.45 [id number] A-L A4C: | | 42.63 mlLAESV MOD A4C: 35.71 mlLALs A4C: 4.75 cmRAAs: 18.18 [id number] A-L: 51.01 | | mlRAESV MOD: 50.60 mlRALs: 5.50 cmTAPSE: 2.69 cmAV Env.Ti: 282.63 msAV maxPG: | | 12.73 mmHgAV meanP.50 mmHgAV Vmax: 1.78 m/Kirk Vmean: 1.30 m/Kirk VTI: 36.76 | | cmAVA Vmax: 2.84 cm2AVA (VTI): 2.79 [id number] Vmax: 0.00 cm2/m2AVAI (VTI): 0.00 | | cm2/m2LVOT Env.Ti: 288.28 msLVOT maxP.28 mmHgLVOT meanP.09 mmHgLVSI Dopp: | | 53.74 ml/m2LVSV Dopp: 102.64 mlLVOT Vmax: 1.34 m/sLVOT Vmean: 0.94 m/sLVOT VTI: | | 27.25 cmMV A [place]: 0.73 m/sMV Dec [place]: 5.74 m/s2MV DecT: 220.15 msMV E [place]: | | 1.26 m/sMV E/A Ratio: 1.71E/E' Sept: 10.36E' Lat: 0.13 m/sE' Sept: 0.12 m/sRAP: | | 15 mmHgRV S': 0.18 m/sRVSP: 42.23 mmHgTR maxP.23 mmHgTR Vmax: 2.60 m/s | | Services Mgr:Authenticated by: [facility] Date/Time: -- | | [id number]:25:40 IMPRESSION: 1. Overall left ventricular systolic function [...] A [place]: 0.73 m/s | |MV Dec [place]: 5.74 m/s2 | |MV DecT: 220.15 ms | |MV E [place]: 1.26 m/s | |MV E/A Ratio: 1.71 | |E/E' Sept: 10.36 | |E' Lat: 0.13 m/s | |E' Sept: 0.12 m/s | |RAP: 15 mmHg | |RV S': 0.18 m/s | |RVSP: 42.23 mmHg | |TR maxP.23 mmHg | |TR Vmax: 2.60 m/s | | | |Services Mgr: | |Authenticated by: Shayla Eastmna MD | |Report Date/Time: -- [id number]:40 | | | |IMPRESSION: | |1. Overall left ventricular systolic function is normal with, an EF between 60 - 65 %. | |2. The right ventricle is normal in size and function. | |3. There is no pericardial effusion. | + + documented in this encounter Visit Diagnoses Not on filedocumented in this encounter"
--- OUTSIDE RECORDS SUMMARY | ~2020-06-03 | XMS | Encounter Summary ---
Demographics + + + | Address | [address] | | | [place] [address] | + + + | Home Phone [...] [place] | | | | | [address] | | + + + + + Care Team Providers + +------+ + | Care Statistical Typist Name | Role | Phone | + +------+ + | Carlos Díaz NP | PCP | | + +------+ + Encounter Details +--------+ + + + + | Date | Type | Department | Care Team | Description | +--------+ + + + + | 05/07/ | Orders Only | [facility] | [facility], | | | 2013 | | MED CTR OP INFUSION | KYRA Singer [address] | | | | | [address] | [address] | | | | | [place], [place] | [place], [place] | | | | | [address] | [address] | | | | | [phone] | | | +--------+ + + + [...] | | | | | | [place] [address] | | | | | | [phone] | | | | | | | | +--------+ + + + + | 07/09/ | Virtual | Gastroenterology | Osito Bowen | | | 2019 | Office | | MD Jonathan [address] | | | | Visit | | [place] [address] | | | | | | [phone] | | | | | | | | +--------+ + + + + documented as of this encounter Visit Diagnoses Not on filedocumented in this encounter"
--- OUTSIDE RECORDS SUMMARY | ~2020-06-03 | XMS | Encounter Summary ---
Demographics + + + | Address | [address] | | | [place] [address] | + + + | Home Phone | | + + + | Preferred Language | Unknown | + + + | Marital Status | Single | + + + | Mu-Ism Affiliation | 1013 | + + + [...] [place] | | | | | [address] | | + + + + + Care Team Providers + +------+ + | Care Inserting Machine Operator Name | Role | Phone | + +------+ + | Lilliana Wheeler | PCP | | | CAMERA MECHANIC | | | + +------+ + Reason [...] [address] | | | | | ([facility]) | CAMERA MECHANIC [address] | [place], | | | | | Procedures | [address] | [place] [address] | | | | | [place] | [address] | Phone: | | | | | COLONOSCOPY, | [place], | [phone] | | | | | DIAGNOSTIC | [place] [address] | Fax: | | | | | [place] | Phone: | [phone] | | | | | COLONOSCOPY, | [phone] | | | | | | BIOPSY | Fax: | | | | | | | [phone] | | +--------+ + + + + [...] | / | unspecified | Jennifer, | CAMERA MECHANIC [address] | | | | Gastroenterol | [place] | CAMERA MECHANIC [address] | [address] | | | | ogy | ulcerative | [address] | [address] | | | | | (chronic) | [place], | [place], | | | | | colitis(556. | [place] [address] | [place] [address] | | | | | 6) (HCC) | Phone: | Phone: | | | | | Colitis/pt/ | [phone] | [phone] | | | | | moda | Fax: | Fax: | | | | | Procedures | [phone] | [phone] | | | | | OFFICE VISIT | | | | | | | REGULAR | | | +--------+--------+ + + + + Encounter Details +--------+---------+ + + + | Date | Type | Department | Care Team | Description | +--------+---------+ + + + | 12/07/ | Office | [facility] | [facility], | Ulcerative colitis | | 2013 | Visit | GASTROENTEROLOGY | KYRA [address] | ([facility]) (Primary Dx) | | | | [address] | [address] | | | | | [address] [place], [place] | [place], [place] | | | | | [address] | [address] | | | | | [phone] | | | +--------+---------+ + + + [...] of control. Recommended discussion with PCP or SHIPMASTER. Will follow up with results. Patient is [...] | | | | | | [place] [address] | | | | | | [phone] | | | | | | | | +--------+ + + + + | 07/09/ | Virtual | Gastroenterology | Osito Bowen | | | 2019 | Office | | MD Jonathan [address] | | | | Visit | | [place] [address] | | | | | | [phone] | | | | | | | [...] to Gastroenterology | Referral | e | ([facility]) | 12/25/2013, Expires: | | ([facility]AR[place]) | [...] + | [facility] | [address] | [place] | [phone] | | [facility] | | [address] | | | - LABORATORY | | | | + + + + + | [facility] | [address] | [place] | | | [facility] | | [address] | | | - LABORATORY [...] + | [facility] | [address] | [place], [place] | [phone] | | [facility] | | [address] | | | - LABORATORY | | | | + + + + + | [facility] | [address] | [place], [place] | | | [facility] | | [address] [place] [address] | | | - LABORATORY | | [...] + | [facility] | [address] | [place] | [phone] | | [facility] | | [address] | | | - LABORATORY | | | | + + + + + | [facility] | [address] | [place] | | | [facility] | | [address], [facility] | | | - LABORATORY | | | | + + + + + documented in this encounter Visit Diagnoses + + | Diagnosis | + + | Ulcerative colitis (HCC) - Primary Ulcerative colitis, unspecified | + + documented in this encounter
--- OUTSIDE RECORDS SUMMARY | ~2020-06-03 | XMS | Encounter Summary ---
Demographics + + + | Address | [address] | | | [place] [address] | + + + | Home Phone [...] [place] | | | | | [address] | | + + + + + Care Team Providers + +------+ + | Care Fermenting Cellars Supervisor Name | Role | Phone | [...] | | | | | | | ([facility]) | | | | | | | Procedures | | | | | | | COLONOSCOPY | | | | | | | COLONOSCOPY | | | +--------+--------+ + + + + Encounter Details +--------+ + + + + | Date | Type | Department | Care Team | Description | +--------+ + + + + | 12/25/ | Hospital | [facility] | Aris Schmid MD | Colitis (Primary | | 2013 | Encounter | MED CTR MP INTRA OP | [address] | Dx); Inflammatory | | | | [address] | [place] | bowel disease | | | | [place] | [address] | | | | | [address] | [phone] | | | | | [phone] | | | +--------+ + + + [...] Aris Schmid MD at 12/25/2013 7:58 AM PDTLucreica Blank, [facility] - 11/12 11:20 AM PST [...] of control. Recommended discussion with PCP or TECHNICAL COMMUNICATION TEACHER. Will follow up with results. Patient is [...] 9:[address] [facility] - 12/25/2013 12:00 AM PDTAssociated Order(s): PATHOLOGY - EXTERNAL SCAN NBASE SCAN [facility] - 12/25 12:00 [...] 12/26/2013 12:00 AM PDTElectron ically signed by [facility], [facility] at 01/01/2014 9:50 AM PDTMiscellaneous - ONBASE SCAN [facility] - 0 12/26/2013 12:00 AM PDT docume nted in this encounter Plan of Treatment +--------+ + + + + | Date | Type | Specialty | Care Team | Description | +--------+ + + + + | 06/04/ | Virtual | Gastroenterology | Natalie, | | | 2019 | Office | | [address] | | | | Visit | | [place] | | | | | | [place] [address] | | | | | | [phone] | | | | | | | | +--------+ + + + + | 07/09/ | Virtual | Gastroenterology | Osito Bowen | | 2019 | Office | | MD Jonathan [address] | | | | Visit | | [place] [address] | | | | | | [phone] | | | | | | | [...] 12/25/2013 | PROVATION | | 10:28 AMMRN: [id number] #: [id number] of : | | | 1980Admit Type: AmbulatoryAge: 33Room: [facility] 02Gender: FemaleNote | | | Status: [...] by the physician, the nurse and the electrical mechanical technician in the | | | pre-procedure [...] On: 12/25/2013 | | | 10:28 AM [facility], [address] [facility], | | | [place] [address] | | | - Discharge patient to [...] On: 12/25/2013 10:28 AM | | | [facility], [address] [place] [address], [place], [place] | | | [address] | | + + -+ + + | Transcriptions | + + | [facility] - 12/25/2013 12:00 AM PDT | + [...]
--- OUTSIDE RECORDS SUMMARY | ~2020-06-03 | XMS | Encounter Summary ---
Demographics + + + | Address | [address] | | | [place] [address] | + + + | Home Phone [...] [place] | | | | | [address] | | + + + + + Care Team Providers + +------+ + | Care Vehicle Operator Name | Role | Phone | [...] | Telephone | [facility] [place] | [facility], | Other (Brian) | | 2014 | | GASTROENTEROLOGY | KYRA Singer [address] | | | | | [address] | [address] | | | | | [address] [place], [place] | [place], [place] | | | | | [address] | [address] | | | | | [phone] | | | +--------+ + + + [...] 2019 | Office | | [address] | | | | Visit | | [place] | | | | | | [place] [address] | | | | | | [phone] | | | | | | | | +--------+ + + + + | 07/09/ | Virtual | Gastroenterology | Osito Bowen | | 2019 | Office | | MD Jonathan [address] | | | | Visit | | [place] [address] | | | | | | [phone] | | | | | | | | +--------+ + + + + documented as of this encounter Visit Diagnoses Not on filedocumented in this encounter"
--- OUTSIDE RECORDS SUMMARY | ~2020-06-03 | XMS | Encounter Summary ---
Demographics + + + | Address | [address] | | | [place] [address] | + + + | Home Phone [...] [place] | | | | | [address] | | + + + + + Care Team Providers + +------+ + | Care Injection Molding Machine Operator Name | Role | Phone [...] [address] | | | | | [address] [place], [place] | [place], [place] | | | | | [address] | [address] | | | | | [phone] | | | +--------+ + + + [...] PSTShe would lik e them done at [facility] in [place]. elephone Encounter - Graciela Narayanan Master of Barcheyacht - 11/07/2014 10:21 AM PSTHave lab orders [...] 2019 | Office | | [address] | | | | Visit | | [place] | | | | | | [place] [address] | | | | | | [phone] | | | | | | | | +--------+ + + + + | 07/09/ | Virtual | Gastroenterology | Osito Bowen | | 2019 | Office | | MD Jonathan [address] | | | | Visit | | [place] [address] | | | | | | [phone] | | | | | | | | +--------+ + + + + documented as of this encounter Visit Diagnoses Not on filedocumented in this encounter"
--- OUTSIDE RECORDS SUMMARY | ~2020-06-03 | XMS | Encounter Summary ---
Demographics + + + | Address | [address] | | | [place] [address] | + + + | Home Phone [...] | [place] | | | | | [address] | | + + + + + Care Team Providers + +------+ + | Care Computer Systems Design Analyst Name | Role | Phone | [...] + + | 04/12/ | Telephone | [facility] | [facility] [place], | Other (joint | | 2013 | | GASTROENTEROLOGY | KYRA [address] | discomfort) | | | | [address] [place] | [address] | | | | | [address] [place] | [place] | | | | | [address] | [id number] | | | | | [phone] | | | +--------+ + + + [...] 2019 | Office | | [address] | | | | Visit | | [place] | | | | | | [place] [address] | | | | | | [phone] | | | | | | | | +--------+ + + + + | 07/09/ | Virtual | Gastroenterology | Osito Bowen | | 2019 | Office | | MD Jonathan [address] | | | | Visit | | [place] [address] | | | | | | [phone] | | | | | | | | +--------+ + + + + documented as of this encounter Visit Diagnoses Not on filedocumented in this encounter
--- OUTSIDE RECORDS SUMMARY | ~2020-06-03 | XMS | Encounter Summary ---
Demographics + + + | Address | [address] | | | [place] [address] | + + + | Home Phone [...] [place] | | | | | [address] | | + + + + + Care Team Providers + +------+ + | Care Arcade Technician Name | Role | Phone | [...] + + | 08/23/ | Telephone | [facility] | [facility], | [facility] | | 2013 | | GASTROENTEROLOGY | KYRA [address] | | | | | [address] [place] | [address] | | | | | [address] [place], [place] | [place], [place] | | | | | [address] | [address] | | | | | [phone] | | | +--------+ + + + [...] 2019 | Office | | [address] | | | | Visit | | [place] | | | | | | [place] [address] | | | | | | [phone] | | | | | | | | +--------+ + + + + | 07/09/ | Virtual | Gastroenterology | Osito Bowen | | 2019 | Office | | MD Jonathan [address] | | | | Visit | | [place] [address] | | | | | | [phone] | | | | | | | | +--------+ + + + + documented as of this encounter Visit Diagnoses Not on filedocumented in this encounter"
--- OUTSIDE RECORDS SUMMARY | ~2020-06-03 | XMS | Encounter Summary ---
Demographics + + + | Address | [address] | | | [place] [address] | + + + | Home Phone [...] | [place] | | | | | [address] | | + + + + + Care Team Providers + +------+ + | Care Evp Global Multimedia Sales Name | Role | Phone | [...] | 04/25/ | Refill | [facility] [place] | [facility], | Medication Refill | | 2013 | | GASTROENTEROLOGY | KYRA [address] | | | | | [address] | [address] | | | | | [address] [place], [place] | [place], [place] | | | | | [address] | [address] | | | | | [phone] | | | +--------+--------+ + + + [...] | | | | | | [place] [address] | | | | | | [phone] | | | | | | | | +--------+ + + + + | 07/09/ | Virtual | Gastroenterology | Osito Bowen | | | 2019 | Office | | MD Jonathan [address] | | | | Visit | | [place] [address] | | | | | | [phone] | | | | | | | | +--------+ + + + + documented as of this encounter Visit Diagnoses Not on filedocumented in this encounter"
[~2020-06-03 16:04] MED LIST changes: +PREDNISONE5 MG PO
--- OUTSIDE RECORDS SUMMARY | 2020-06-03 16:06 | XMS ---
PreManage Notification: LIDA GALAVIZ Security Data Manager Events No recent Security Events currently on file CRITERIA MET - History of Sepsis [facility] - 2 Visits in 30 Days CARE PROVIDERS LORRIE GARCIA Physician Pottery Decoration Designer 01/15/2020-Current PHONE: Unknown Ramona has no Care Guidelines for this patient. EFalguni VISIT COUNT (12 MO.) 3 [facility] TOTAL 3 NOTE: Visits indicate total known visits. ED/UCC VISIT TRACKING (12 MO.) 06/03/2020 16:04 [facility] TYPE: Emergency COMPLAINT: - PAIN, FATIGUE 05/23/2020 21:31 [facility] TYPE: Emergency COMPLAINT: - FATIGUE/WEAKNESS DIAGNOSES: - Elevated white blood cell count, unspecified - Anemia, unspecified - Ulcerative colitis, unspecified, without complications - Allergy status to sulfonamides status - Headache - Diarrhea, unspecified 01/12/2020 13:27 [facility] [place] TYPE: Emergency COMPLAINT: - WEAK, TIRED, COLD DIAGNOSES: - Abnormal uterine and vaginal bleeding, unspecified - Anemia, unspecified - Allergy status to sulfonamides status - Weakness INPATIENT VISIT TRACKING (12 MO.) No inpatient visits to display in this time frame [email or web address]
[2020-06-03] MEDS ORDERED: ADVIL200 MG PO (16:21)
--- NOTE | 2020-06-03 21:25 | NUR ---
PT ARRIVES TO FLOOR VIA STRETCHER, ABLE TO STAND AND TRANSFER TO THE BED INDEPENDENTLY. PT REPORTS PAIN IMPROVED FROM EARLIER, RATES 7/10 TO R LEG. DENIES SOB AND NAUSEA. BT'S ACTIVE, PT REPORTS ABD TENDER TO PALPATION. REPORTS VERY FREQUENT BMS EARLIER IN THE DAY, DENIES ANY BM SINCE APPROXIMATELY 1700. BRUSING PRESENT TO PT'S R LEG, PT STATES SOME OF THIS IS OLD AND SOME IS NEW. STATES THAT SHE IS HUNGRY, REQUESTS SANDWHICH BOX. IV FLUSHED, WNL. BSC PLACED NEXT TO BED PER PT REQUEST. CALL LIGHT INSTRUCTIONS PROVIDED, MARJAN LIGHT LEFT IN PT REACH. PT DENIES FURTHER NEEDS AT THIS TIEM. ORIENTED TO ROOM AND POC FOR THIS SHIFT.
--- NOTE | 2020-06-03 23:17 | NUR ---
PT RESTING IN BED WITH EYES CLOSED. WAKES EASILY WHEN COMMERCIAL COLLECTIONS DRIVER ENTERS THE ROOM FOR SCHEDULED MED ADMINISTRATION. PT REMAINS DROWSY THROUGHOUT RESTAURANT BUSSER. DENIES NEEDS AT THIS TIME. CALL LIGHT IN REACH.
--- NOTE | 2020-06-04 00:45 | NUR ---
PT RESTING IN BED WITH EYES CLOSED. RESPIRATIONS EVEN AND UNLABORED. PT APPEARS TO BE SLEEPING. CALL LIGHT IN REACH.
--- NOTE | 2020-06-04 01:45 | NUR ---
PHARMACEUTICAL PLANT OPERATOR TO ROOM FOR IV PUMP ALARMING AND SCHEDULED CRISIS MANAGER. PT RESTING IN BED WITH EYES CLOSED. EASILY WAKES TO VOICE. PT REMAINS VERY DROWSY DURING ASSESSMENT AND HAS TO BE ROUSED SEVERAL TIMES. PT RATES PAIN 7/10 TO R KNEE. DENIES SOB OR [place]. BT'S ACTIVE. PT CONTINUES TO REPORTS ABD TENDERNESS TO PALPATION. PT REQUESTS TAMPON FROM HER PURSE, STATES THAT SHE HAS STARTED HER MENSES. REPORTS THAT HER PERIODS ARE FREQUENTLY IRREGULAR SINCE HAVING HER IUD PLACED. IV FLUSHED, WNL. PT DENIES FURTHER NEEDS AT THIS TIME. CALL LIGHT IN REACH.
--- NOTE | 2020-06-04 03:01 | NUR ---
PT RESTING IN BED WITH EYES CLOSED. DOES NOT WAKE WHILE OPERATIONS LEADER AT DOORWAY. RESPIRATIONS EVEN AND UNLABORED. CALL LIGHT IN REACH.
--- NOTE | 2020-06-04 03:17 | NUR ---
CALL LIGHT ANSWERED. EMPTIED BEDSIDE COMMODE. PATIENT VOIDED AND LIQUID STOOL. CHANGED SHEET STAINED WITH BLOOD FROM PATIENT'S MENSTRUATION.
--- NOTE | 2020-06-04 05:56 | NUR ---
PT RESTING IN BED WITH EYES CLOSED. LAB PRESENT TO DRAW BLOOD. PT DOES NOT OPEN EYES, STATES "OW" WHEN LAB APPLIES TOURNIQUET. ANSWERS QUESTIONS BUT DOES NOT OPEN HER EYES. PT DENIES NEEDS. NEW GARBAGE BAG APPLIED TO BEDSIDE TABLE. CALL LIGHT IN REACH.
--- NOTE | 2020-06-04 06:33 | NUR ---
PT RESTED VERY WELL THIS SHIFT. REPORTS PAIN TO R KNEE. NO C/O SOB OR NAUSEA. LOOSE/WATERY STOOL X 2 THIS SHIFT. BT'S ACTIVE. PT REPORTS ABD TENDERNESS TO PALPATION. AD MICHAEL IN ROOM. IV WNL, FLUIDS INFUSING, OCCASIONALLY POSITIONAL. UO QS. REGULAR DIET, TOLERATING WELL.
--- NOTE | 2020-06-04 07:40 | NUR ---
RECEIVED REPORT FROM BEENA SERRANO. PT LAYING IN BED. CALL LIGHT IntervalZeroIN REACH. PT APPEARS TO BE DROWSY THIS AM. PT HAD THIS RN AND BEENA SERRANO PUT HER QUESTIONS AND NEEDS ON THE BOARD IN THE ROOM FOR AT THIS TIME.
--- NOTE | 2020-06-04 08:20 | NUR ---
THIS RN IN PTS ROOM TO GIVE MORNING MEDS. PT APPEARS TO VERY DROWSY THIS AM, BUT RESPONDS TO SOUND. PT HAS NO COMPLAINTS AT THIS TIME
--- NOTE | 2020-06-04 08:38 | NUR ---
PATIENT ASLEEP. REFUSED BREAKFAST. NO FURTHER NEEDS AT THIS TIME.
--- NOTE | 2020-06-04 09:27 | NUR ---
PATIENT ASLEEP. VITALS AND I&O'S TAKEN. NO FUTHER NEEDS AT THIS TIME.
--- NOTE | 2020-06-04 09:49 | NUR ---
THIS RN TO ROOM TO CHECK ON PT. PT RESTING WITH EYES CLOSED. RESPIRATIONS EVEN AND UNLABORED, RR = 14. BED RAILS UP. CALL LIGHT WITHIN REACH. PT ALLOWED TO REST.
--- NOTE | 2020-06-04 10:30 | NUR ---
Spoke with Ria. She lives at home with son and boyfriend. Denies needs for discharge. Has had same issues in the past, feels she will dc to home when cleared by Dr. Palomino.
--- NOTE | 2020-06-04 11:41 | NUR ---
MED REC COMPLETE
--- NOTE | 2020-06-04 12:33 | NUR ---
REQUEST PAIN MEDICATION, TYLENOL OFFERED PT SAID SHE WILL WAIT TO TALK TO THE DOCTOR WHEN HE ROUNDS TO SEE IF SHE CAN GET SOMETHING MORE THAN TYLENOL. NOTIFED OF PT REQUEST
--- NOTE | 2020-06-04 13:00 | NUR ---
IN PTS ROOM TO CHECK ON PT. PT APPEARS TO BE SOUND ASLEEP WITH ADEQUATE RESPITATIONS NOTED AT THIS TIME. CALL LIGHT WITHIN REACH
--- NOTE | 2020-06-04 13:30 | NUR ---
PATIENT IS RESTING. VITAL SIGNS DOCUMENTED. NO FURTHER NEEDS AT THIS TIME.
--- NOTE | 2020-06-04 14:20 | NUR ---
IN PTS ROOM TO GIVE AFTERNOON MEDS. PT STATES THAT SHE WOULD LIKE SOMETHING FOR THE PAIN. THIS RN OFFERED THE PT TYLENOL FIRST AND PT DECLINED THE WANT TO TAKE TYLENOL. THIS RN OFFERED TO GET PT 30MG OF TORADOL. PT AGREED.
--- NOTE | 2020-06-04 14:29 | NUR ---
PT LAYING FLAT IN BED, DROWSY BUT RESPONDS TO THE SOUND OF MY VOICE.PT SAID SHE IS TIRED, HOPES TO EAT SOFT FOOD. PUDDING AND JELLO ON TABLE FOR PT. PT ALSO STATED PAIN IS DECREASED AND SHE JUST IS SO TIRED AND WANTS TO SLEEP. GAVE BLESSING, WILL FOLLOW
--- NOTE | 2020-06-04 17:39 | NUR ---
IN PTS ROOM TO CHECK ON PT. PT ASKING WHAT SHE WAS GIVEN IN THE ER FOR THE PAIN STATING "IT WAS SOMETHING CALLED DILUD?" THIS RN DISCUSSED WITH HER THAT SHE WAS GIVEN DILAUDID AND THAT WE RARELY GIVE IT ON THE FLOOR. DISCUSSED WITH PT THAT SHE HAS TYLENOL AND TORADOL AND THAT SHE CAN HAVE THE TORADOL AGAIN AFTER 1900. PT STATES THAT HER PAIN WAS IMPROVED FROM THE TORADOL
--- NOTE | 2020-06-04 18:10 | NUR ---
IN PT ROOM FOR VITALS AND ROUNDS. PT LYING IN BED WITH SIDE RAILS UP X 2. VITAL SIGNS WNL. IV FLUIDS INFUSING WNL. PT REQUESTED MENU TO ORDER DINNER. PT DENIES FURTHER NEEDS AT THIS TIME. SIDE RAILS UP X 2, CALL LIGHT WITHIN REACH.
--- NOTE | 2020-06-04 19:15 | NUR ---
RECEIVED REPORT FROM MAGGIE CHENG. pt RESTING IN BED. REQUESTED ICE AND WATER, PROVIDED. NO FURTHER REQUESTS AT THIS TIME. IVF INFUSING. WHITEBOARD UPDATED. CALL LIGHT WITHIN REACH.
--- NOTE | 2020-06-04 20:25 | NUR ---
IN TO DO ASSESSMENT AND MEDS. pt REPORTED 5/10 PAIN. DISCUSSED PAIN MANAGEMENT. DISCUSSED PLAN FOR THE EVENING. ASSESSMENT DONE. MEDICATIONS GIVEN (SEE MAR). NO FURTHER REQUESTS AT THIS TIME. CALL LIGHT WITHIN REACH.
--- NOTE | 2020-06-04 21:13 | PATH ---
[facility] [address] [place], [place] [address] Signed ORDERING PHYSICIAN: Markus Urias MD PATIENT NAME: LIDA GALAVIZ GENDER: F : 1980 SPECIMEN(S): No Source Given MOLECULAR PATHOLOGY RESULTS: SARS-CoV-2 Not Detected ADDITIONAL NOTES.: The [place] Fusion SARS-CoV-2 Assay is a multiplex real-time PCR (RT-PCR) in vitro diagnostic test intended for the qualitative detection of RNA from SARS-CoV-2 from individuals who meet COVID-19 clinical and/or epidemiological criteria. In general, SARS-CoV-2 RNA can be detected during the acute phase of infection. Positive results indicate the presence of SARS-CoV-2 RNA. Clinical correlation with patient history and other diagnostic information is necessary to determine patient infection status. Positive results do not rule out bacterial infection or co-infection with other viruses. Negative results do not preclude SARS-CoV-2 infection and should not be used as the sole basis for patient management decisions. Negative results must be combined with other clinical observations, patient history, and epidemiological information. The [place] Fusion SARS-CoV-2 Assay is not yet approved or cleared by the [place] FDA. When there are no FDA-approved or cleared tests available, and other criteria are met, FDA can make tests available under an emergency access mechanism called an Emergency Use Authorization (EUA). The EUA for this test is supported by the [place] of Health and Human Service's (HHS's) declaration that circumstances exist to justify the emergency use of in vitro diagnostics for the detection and/or diagnosis of the virus that causes COVID-19. This EUA will remain in effect for the duration of the COVID-19 declaration justifying emergency of IVDs, unless it is terminated or revoked by FDA, after which the test may no longer be used. The [place] Fusion SARS-CoV-2 Assay is for use only under EUA in [place] laboratories certified under the Clinical Laboratory Improvement Amendments of 1988 (CLIA) to perform high complexity tests. [facility] is certified under CLIA to perform high complexity PATIENT NAME: LIDA GALAVIZ PATHOLOGY DATE OF : 84 REPORT #: [id number] PHYSICIAN: JUAN NUNN PCP: LORRIE GARCIA PA-C REPORT IS CONFIDENTIAL AND NOT TO BE RELEASED WITHOUT AUTHORIZATION [address] [id number] Signed clinical laboratory testing. PERFORMING LABORATORY.: Molecular testing was performed by [facility] [place] [address] (Diet Therapist: Walter Florez D.O.; CLIA#: [id number]) Diagnostician: System Interface Pathologist Electronically Signed 06/04/2020 Copies: ~ PATIENT NAME: ANASTACIA,LIDA DAISY PATHOLOGY DATE OF : 84 REPORT #: [id number] PHYSICIAN: JUAN NUNN PCP: LORRIE GARCIA PA-C REPORT IS CONFIDENTIAL AND NOT TO BE RELEASED WITHOUT AUTHORIZATION
--- NOTE | 2020-06-04 21:35 | NUR ---
CALL LIGHT ANSWERED. pt UP IN SHOWER. ASSISTED WITH ADJUSTING SHOWER CHAIR HEIGHT. PERSONAL BELONGINGS DELIEVERED BY JAZMÍN TRAN FROM COMPENSATION ADMINISTRATOR. NO ADDITIONAL NEEDS.
--- NOTE | 2020-06-04 23:30 | NUR ---
pt REQUESTED A NEW IV THE CURRENT IV BEEPS OFTEN. NEW IV STARTED. PRN PAIN MEDS FOR 5/10 PAIN. PROVIDED FOOD. NO FURTHER REQUESTS AT THIS TIME. CALL LIGHT WITHIN REACH. IVF INFUSING.
--- NOTE | 2020-06-05 01:21 | NUR ---
ROUNDED ON pt. RESTING WITH EYES CLOSED, RESPIRATIONS REGULAR AND UNLABORED. CALL LIGHT WITHIN REACH.
--- NOTE | 2020-06-05 02:00 | NUR ---
CALL LIGHT ON. pt REPORTED SHE WAS "ALL SWEATY" SHEETS, GOWN, AND PILLOW CASES CHANGED. MEDICATION GIVEN (SEE MAR). pt REPORTED 5/10 PAIN IN HER ABD. DISCUSSED PAIN MEDICATION AND WHEN HER NEXT DOSE IS, pt AGREEABLE TO PLAN. ASSESSMENT DONE. CALL LIGHT WITHIN REACH.
--- NOTE | 2020-06-05 04:19 | NUR ---
CALL LIGHT ON. pt REPORTED "MY STOMACH HURTS REALLY BAD, LIKE I NEED TO POOP BUT I JUST DID." ASSESSED. BT ACTIVE. ENCOURAGED pt TO WALK. PROVIDED JUICE AND WARM PACK. CALL LIGHT WITHIN REACH.
--- NOTE | 2020-06-05 05:42 | NUR ---
IV PUMP BEEPING. ERROR RESOLVED. pt LAYING IN BED CRYING. REPORTED PAIN IS 7/10. DISCUSSED PAIN MANAGEMENT. VITALS AND I&O RECORDED. pt UP TO VOID. CALL LIGHT WITHIN REACH.
--- NOTE | 2020-06-05 06:26 | NUR ---
CALLED MD, UPDATED ON pt CONDITION. NEW ORDERS ENTERED.
--- NOTE | 2020-06-05 06:40 | NUR ---
IN TO GIVE MEDICATION. DISCUSSED AT LENGTH. MEDICATIONS GIVEN (SEE MAR). PAIN 04/19. CALL LIGHT WITHIN REACH.
--- NOTE | 2020-06-05 07:28 | NUR ---
REPORT RECEIVED FROM MAGGIE SOLOMON. PT RESTING IN BED ON RIGHT SIDE WITH EYES CLOSED. RESPIRATIONS EVEN AND UNALBORED. BED RAILS UP. CALL LIGHT WITHIN REACH. PT ALLOWED TO REST.
--- NOTE | 2020-06-05 09:29 | NUR ---
MORNING ASSESSMENT AND MEDICATION DUE. PT RESTING WITH EYES CLOSED. PT AWAKENS TO VOICE. PT CONTINUES TO REPORT FEELING VERY TIRED. PT REPORTS ONGOING 5/10 PAIN IN STOMACH WHICH SHE STATES IS TOLERABLE AND DENIES NEED FOR ADDITIONAL PAIN MEDICATION. BOWEL TONES ACTIVE ON RIGHT SIDE AND HYPO ACTIVE ON LEFT. PT UP TO RESTROOM TO HAVE LOOSE/LIQUID BOWEL MOVEMENT AND TO VOID. PT INDEPENDANT WITH AMBULATION AND STEADY ON FEET. LINENS CHANGED. VITALS TAKEN. MEDICATION GIVEN. PT UPDATED ON PLAN OF CARE, VERBALIZES UNDERSTANDING ON PLAN. PT REPORTS FRUSTRATION WITH HER COLITIS AND WONDERING WHAT ADDITIONAL OPTIONS SHE MIGHT HAVE MOVING FORWARD. PT REPORTS NO APPITTIE TODAY STATING SHE WOULD LIKE TO STICK TO CLEAR LIQUIDS. NO ADDITIONAL REQUESTS OR COMPLAINTS AT THIS TIME. CALL LIGHT WITHIN REACH.
--- NOTE | 2020-06-05 09:36 | NUR ---
PATIENT UP IN BATHROOM, MAGGIE FUENTES IN ROOM. LINENS CHANGED.
--- NOTE | 2020-06-05 10:30 | NUR ---
1ST UNIT OF PACKED RED BLOOD CELLS READY. RETRIEVED FROM LAB PER PROTOCOL. VARIFIED BY THIS RN AND MAGGIE QUINN AT BEDSIDE. VITALS TAKEN, UNIT STARTED PER PROTOCOL. PT TEARFUL WITH 6/10 CRAMPING PAIN, BENTYL DOSE TITRATED UP TO FULL DOSE, HEAT PACK PROVIDED. THIS RN AT BEDSIDE FOR FIRST 15 MINUTES OF INFUSION. NO S/S OF INFUSION REACTION NOTED. RATE INCREASED TO 150ML/HR PER PROTOCOL FOR REMAINDER OF UNIT. PT RESTING IN BED, WIMPERING NOTED. NO ADDITIONAL REQUESTS OR COMPLAINTS. CALL LIGHT WITHIN REACH.
--- NOTE | 2020-06-05 11:00 | NUR ---
Spoke with Ria. She denies needs, not feeling well.
--- NOTE | 2020-06-05 12:40 | NUR ---
PUMP ALARMING, PACKED RED BLOOD CELL INFUSION COMPLETE. LINE FLUSHED. 2ND UNIT OF PACKED RED BLOOD CELLS OBTAINED FROM LAB PER PROTOCOL BY MAGGIE QUINN. UNIT CHECKED AT BEDSIDE BY THIS RN AND KAI SERRANO. VITALS TAKEN. 2ND UNIT STARTED PER PROTOCOL. THIS RN AT BEDSIDE FOR FIRST 15 MINUTES OF INFUSION. ASSESSMENT DONE. BOWEL TONES ACTIVE. PT REPORTS 7/10 CRAMPING PAIN. PT TALKING ON PHONE AND STATES SHE FEELS BETTER AND WANTS TO SEE HER MOTHER WHO IS ALSO IN THIS HOSPITAL. PT ADVISED THAT SHE CAN VISIT LATER TODAY AFTER BLOOD TRANSFUSION. PT DECLINES TYLENOL. LUNG SOUNDS CLEAR. PT CONTINUES ON MESSES. PT REPORTS LARGE CLOTS " BIG THAT LOTION BOTTLE" DURING HER MENSES. PT STATES DR. MARTINS IS HER BROADCAST NEWS PRODUCER AND IS AWARE. PT REPORTS THIS MENSES IS NORMAL EXCEPT "I SHOULDN'T BE HAVING THEM." PT CONTINUES TALKING ON PHONE WITH FAMILY. NEW WARM PACK PROVIDED FOR ABDOMINAL CRAMPING. NO S/S OF INFUSION REACTION NOTED. BLOOD TRANSFUSION RATE INCREASED TO 150ML/HR PER PROTOCOL. PT DENIES ADDITIONAL REQUESTS OR COMPLAINTS. TOLERATING PO JELLOW AND APPLE JUICE. CALL LIGHT WITHIN REACH. BED RAILS UP.
--- NOTE | 2020-06-05 13:57 | NUR ---
pt. got up and went to shower from the waist down. Bed linens were straightened out.
--- NOTE | 2020-06-05 14:00 | NUR ---
DEBRIDGING MACHINE OPERATOR'S REPORT PT WAS FOUND UP IN SHOWER SPRAYING HER CINDI AREA "TO MAKE IT FEEL BETTER." PT OFFERED A SHOWER AFTER BLOOD TRANSFUSION. PT DECLINES. PT ASSISTED BACK TO BED. IV INTACT. CALL LIGHT WITHIN REACH.
--- NOTE | 2020-06-05 14:13 | NUR ---
PATIENT RESTING WITH EYES CLOSED. WOKE FOR VITALS. VITALS AND I&OS CHARTED. PATIENT REFUSED LUNCH. CALL LIGHT IN REACH
--- NOTE | 2020-06-05 14:29 | NUR ---
PUMP ALARMING, PACKED RED BLOOD CELL INFUSION COMPLETE. PT RESTING WITH EYES CLOSED, RESPIRATIONS EVEN AND UNLABORED. LINE FLUSHED PER PROTOCOL. IV FLUIDS RESUMED THROUGH IV LINE. VITALS TAKEN. MEDCATION GIVEN. PT UP TO RESTROOM AND THEN BACK TO BED. PT CONTINUES RESTING. NO ADDITIONAL REQUESTS OR COMPLAINTS. CALL LIGHT WITHIN REACH.
--- NOTE | 2020-06-05 15:43 | NUR ---
PT HERE FOR COLITIS EXACERBATION. PT INDEPENDANT IN ROOM AND TOLERATING MINMAL REGULAR DIET. PT DECLINED BREAKFAST AND LUNCH BUT ORDERED DINNER. PT REPORTS 5-7/10 PAIN THIS SHIFT. PRN MEDICATION GIVEN AND WARM PACKS PROVIDED WITH MINIMAL EFFECT. PT DECLINES TYELNOL. PT ON MENSES THIS SHIFT, REPORTS ISSUES WITH PAST "LARGE CLOTS" DURING MENSES. PT FOUND UP IN SHOWER WHICH SHE WAS USING FOR COMFORT. 2 UNITS PACKED RED BLOOD CELLS GIVEN. PT TOLERATED TRANSFUSION WELL. PT VOIDING QUANTITY SUFFICIENT. PT USES CALL LIGHT APPROPRIATLY.
--- NOTE | 2020-06-05 17:16 | NUR ---
AFTERNOON ASSESSMENT DUE. MD TO BEDSIDE FOR ROUNDS. MD STATES TO CONTINUE PAIN MANAGEMENT WITH BENTYL. PT REPORTS 5/10 CRAMPING PAIN. SEE MAR FOR MEDICATION GIVEN. ASSESSMENT DONE. LUNG SOUNDS CLEAR. PT REPORTS SHE FEELS "ABOUT THE SAME" AFTER BLOOD TRANSFUSION. PT REPORTS MENSES IS PROGRESSING NORMALLY AND SHE HAS HAD NO CLOTS. ABDOMEN SOFT. BOWEL TONES HYPOACTIVE. MEDICATION GIVEN. PT ABLE TO EAT 100% OF DINNER ORDER, PT DENIES NAUSEA. NO ADDITIONAL REQUESTS OR COMPLAINTS AT THIS TIME. CALL LIGHT WITHIN REACH. BED RAILS UP.
--- NOTE | 2020-06-05 18:14 | NUR ---
PT LAYING IN BED RESTING. VITAL SIGNS AND I/O'S WERE TAKEN. A NEW HOTPACK WAS ALSO GIVEN TO THE PT. BEDRAILS ARE UP, BED IN LOWEST POSITION, AND CALL LIGHT IS WITHIN REACH.
--- NOTE | 2020-06-05 18:46 | NUR ---
THIS RN TO ROOM TO CHECK ON PT. PT SITITNG UP IN BED TALKING ON PHONE. PT REPORTS BENTYL HELPED "A LITTLE." PT CONTINUES WITH PHONE CONVERSATION. 75ML MUCOID BROWN LIQUID BOWEL MOVEMENT NOTED. PT DENIES ADDITIONAL REQUESTS OR COMPLAINTS. CALL LIGHT WITHIN REACH.
--- NOTE | 2020-06-05 19:30 | NUR ---
SHIFT REPORT RECEIVED FROM DAYSMSFT MAGGIE FUENTES AT BEDSIDE. PT AWAKE AND RESTING IN BED. PT STATES "I THINK SO" AFTER BEING ASKED IF SHE THOUGHT THE BLOOD TRANSFUSION HELPED. NO NEEDS, PT ATE 100% OF DINNER, DENIES NAUSEA. CALL LIGHT IN REACH.
--- NOTE | 2020-06-05 20:45 | NUR ---
ASSESSMENT COMPLETE, SCHEDULED MEDS GIVEN (SEE EMAR). DISCUSSED PT'S H&H AND ANTICOAGULANT ORDER WITH REFINERY OPERATOR LIGHT ENDS RECOVERYMAGGIE FERNANDEZ. PLATELET COUNT WNL, MEDICATION GIVEN. PT DENIES CLOTS WITH VOIDS, STATES, "I HAVEN'T HAD CLOT IN MONTHS, I JUST BLEED EVERY MONTH AND THEY FOUND OUT MY IUD IS IN THE WRONG SPOT". PT DENIES NAUSEA, REPORTS TOLERABLE 5/10 PAIN. IV FLUIDS INFUSING, SITE WNL. NEW BAG HUNG. NO FURTHER NEEDS, PT REPORTS SHE PLANS ON AMBULATING IN HALLWAY BEFORE BED, INDEPENDENT. VSS, CALL LIGHT IN REACH.
--- NOTE | 2020-06-05 22:20 | NUR ---
GOT PT A HEAT PACK, PT REQUESTED TO GET IN THE SHOWER AT SOME POINT TONIGHT, TOLD PT TO LET US KNOW WHEN READY SO WE CAN WRAP IV SITE, NOTHING FUTHER REQUESTED AT THIS TIME, LEFT PT TO REST
--- NOTE | 2020-06-05 23:33 | NUR ---
PIECE OF CLOTHING AND SMALL BAG OF PERSONAL BELONGINGS TAKEN TO PT'S ROOM, NOW ON BEDSIDE TABLE. PT RESTING IN BED WITH EYES CLOSED, RR EVEN AND UNLABORED. CALL LIGHT IN REACH.
--- NOTE | 2020-06-06 00:15 | NUR ---
PT VERBALIZES DESIRE TO TAKE A SHOWER. JAZMÍN BERGERON AND TONY IN ROOM ASSITING PT WITH WRAPPING IV SITE AND GATHERING SUPPLIES. PRN MEGANYL ALSO GIVEN FOR ABD CRAMPING/PAIN. PT INDEPENDENT IN ROOM, EDUCATED TO USE CALL LIGHT IN SHOWER IF ASSISTANCE IS NEEDED. PT VERBALIZED UNDERSTANDING.
--- NOTE | 2020-06-06 00:18 | NUR ---
asst wrapping pt iv site so pt could use the shower, set up shower with bath towels and wash cloths, new gown provided, pt requested fresh ice water and apple juice, pt will call if assistance is required, left pt to take a shower
--- NOTE | 2020-06-06 01:03 | NUR ---
PT DONE WITH SHOWER. BACK IN BED, IV FLUIDS RESUMED PER MD ORDERS. SITE WNL. NO FURTHER NEEDS, CALL LIGHT IN REACH.
--- NOTE | 2020-06-06 02:30 | NUR ---
PT RESTING IN BED, AWOKE BRIEFLY THEN RETURNED TO SLEEP. SCHEDULED IV STERIOD GIVEN (SEE EMAR). IV SITE WNL, NO NEEDS OR CONCERNS VERBALIZED BY PT. CALL LIGHT IN REACH.
--- NOTE | 2020-06-06 05:30 | NUR ---
PT CALLED FOR SODA, GOT PT VITALS AND I&Os, RN IN FOR ASSESMENT, PT NEEDS NOTHING FURTHER AT THIS TIME
--- NOTE | 2020-06-06 05:35 | NUR ---
VS AND I&O'S DONE. PRN TORADOL GIVEN FOR 6/10 PAIN (SEE EMAR). SMALL AMOUNT BLOOD NOTED WITH RECENT LIQUID STOOL. VIDEO LIBRARY ASSISTANT AWARE. NO FURTHER NEEDS, CALL LIGHT IN REACH.
--- NOTE | 2020-06-06 08:00 | NUR ---
REPORT RECEIVED FROM MAGGIE QUINN. THIS RN WILL BE ASSUMING CARE OF PT FOR THE NEXT 1.5 HOURS WHILE PTS RN ATTENDS A MEETING.
--- NOTE | 2020-06-06 08:51 | NUR ---
MORNING ASSESSMENT AND MEDICATION DUE. PT RESTING IN BED. PT REPORTS 7/10 CRAMPING PAIN IN ABDOMENT. SEE MAR FOR MEDICATION GIVEN. PT REPORTS LIQUID BOWEL MOVEMENTS CONTINUE AND EXPRESSES CONCERN ABOUT "BLOOD IN MY STOOL." PT CONTINUES TO BE ON MENSES. PT REPORTS NORMAL MENSES FOR HER AT THIS TIME WITH NO CLOTS NOTED. PT STATES SHE IS PLANNING TO CONTACT DR. MARTINS REGARDING IUD TODAY. MEDICATION GIVEN. PT ENCROURAGED TO GET UP TO AMBULATE. PT DECLINES AMBULATION BUT AGREES TO GET UP TO CHAIR. PT INDEPENDANT UP TO CHAIR. WARM BLANKETS PROVIDED. VITALS TAKEN. PT DECLINES LINEN CHANGE. NO ADDITIONAL REQUESTS OR COMPLAINTS. PT STATES SHE HAS ORDERED BREAKFAST. CALL LIGHT WITHIN REACH.
--- NOTE | 2020-06-06 09:52 | NUR ---
REPORT GIVEN TO MAGGIE QUINN WHO WILL BE RESUMING CARE OF PT. QUESTIONS ANSWERED.
--- NOTE | 2020-06-06 12:14 | NUR ---
PT SITTING UP IN BED ON HER PERSONAL PHONE. DRESSED, ALL BLINDS PULLED AT THIS TIME. NO C/O'S AT THIS TIME.
--- NOTE | 2020-06-06 13:22 | NUR ---
1225 PT REQUESTED PAIN MED FOR ABDOMINAL PAIN. PT EDUCATED ON WHEN PAIN MED WAS DUE NEXT AND TYLENOL WAS OFFERED FOR BREAKTHROUGH PAIN, BUT PT DECLINED TYLENOL. PT REQUESTED HEAT PAD. HEAT PAD GIVEN. NO FURTHER REQUESTS. CALL LIGHT WITHIN REACH.
--- NOTE | 2020-06-06 13:23 | NUR ---
PT SLEEPING IN CHAIR-COULD NOT AWAKEN HER. WILL CHECK BACK
--- NOTE | 2020-06-06 13:35 | NUR ---
PT GROGGY, COMPLAINS OF PAIN 05/20. PT OFFERED PRN TYLENOL FOR BREAKTHROUGH PAIN AND REMINDED THAT BENTHYL NOT DUE FOR ANOTHER HOUR. PT STATES "I WILL JUST TOUGH THROUGH IT". CALL LIGHT WITHIN REACH. NO OTHER REQUESTS AT THIS TIME.
--- NOTE | 2020-06-06 13:47 | NUR ---
DR DONIS INTO SEE PT AT THIS TIME. AT SOME POINT TODAY PT WILL BE MOVED TO ROOM 107.
--- NOTE | 2020-06-06 15:29 | NUR ---
TALKED WITH PT AND SHE STATES " I TALKE WITH DR MARTINS OFFICE AND IF YOU PUT IN A ORDER FOR A CONSULT SHE CAN THEN COME OVER AND REMOVE MY IUD" PHONE CALL MADED TO DR MARTINS OFFICE. THEY WILL CALL ME BACK.
--- NOTE | 2020-06-06 15:56 | NUR ---
PATIENT WAS ASLEEP BOTH TIMES I STOPPED BY TO TALK TO HER ABOUT DIET FOR ULCERATIVE COLITIS. WILL TRY AGAIN TOMORROW.
--- NOTE | 2020-06-06 16:03 | NUR ---
DR MARTINS OFFICE CALLED BACK AND DR MARTINS WILL COME SEE PT ON WEDNESDAY WHEN SHE IS PORTFOLIO DIRECTOR. INFORMED PT AND SHE IS OKAY WITH THIS.
--- NOTE | 2020-06-06 16:50 | NUR ---
PT TOLERATED HER RICE AND ICE CREAM SO FAR. PT STATES " I AM JUST TIRED AND WANT TO SLEEP" ENCOURAGE PT TO GET UP AND AMBULATED IN THE HALLS. DUE TO PT HAS SOME EDEMA IN HER LEGS.
--- NOTE | 2020-06-06 18:47 | NUR ---
PT GIVEN TWO WARM BLANKETS, SHE IS TALKING ON THE PHONE TO FAMILY
--- NOTE | 2020-06-06 19:54 | NUR ---
PT CALLED FROM SHOWER, WATER WAS GETTING THROUGH PLASTIC COVERING TO HER IV. REINFORCED TAPE AND IT SEEMS TO BE WORKING BETTER. SHE DENIES FURTHER NEEDS. CALL LIGHT IS CLOSE.
--- NOTE | 2020-06-06 21:03 | NUR ---
pt took a shower, was icontinent of urine. had voided and d=had soft bm. Received Bentyl per c/o abd pain 5/10. independnent in room, IVF sl at this time as pt is going for a walk and requests to be sl until returning. warm pad to abd. pt c/o sore throat, assessess with flashligha nd visually, slightly red, white patches back of tongue noted. pt will brush teeth and tongue on return and will reassess again, no edema noted, received solumedron 100mg IV. will complete asessment on retunr. red chest and slight eash in abd "from heat pad stated. brusie R lower leg healing, tolerated diet well, no emesis.
--- NOTE | 2020-06-06 21:52 | NUR ---
PER PT REQUEST I GAVE HER A WARM BLANKET. SHE NEEDS NOTHING MORE AT THIS TIME.
--- NOTE | 2020-06-06 22:47 | NUR ---
PT HAD SOME EMESIS, APPROX 100CC, THICK YELLOW PHLEGM W UNDIGESTED FOOD. MEDICATED W MAALOX,, CEPACOL LOZENGER GIVEN PER C/O SORE THROAT. BACK OF THROAT STILL SLIGHTLY RED, NO WHITE SPOTS NOTED IN BACKOF THROAT AT THIS TIME, AFTER BRUSHING TEETH AND TONGUE. MEDICATED WITH BENTYL EARLIER, TOLERATING LIQUIDS WELL. HAD ANOTHER SEMI LIQUID SOFT BM
--- NOTE | 2020-06-07 00:44 | NUR ---
RESTING, NO DISTRESS, ONROOM AIR, IVF INFUSING. CALL LIGHT ND FLUIDS AT BEDSIDE
--- NOTE | 2020-06-07 01:14 | NUR ---
PT REQUESTED APPLE JUICE, PROVIDED TO PT ON BEDSIDE TABLE, PT IS UP TO THE TOILET, WILL CALL IF ANYTHING ELSE IS REQUIRED BY PT
--- NOTE | 2020-06-07 01:33 | NUR ---
got warm blanket for pt, got a heating pack for pt, nothing else needed at this time
--- NOTE | 2020-06-07 02:49 | NUR ---
RESTING, EYES CLOSED, ON ROOM AIR, TURNS SELF, IVF INFUSING
--- NOTE | 2020-06-07 04:23 | NUR ---
PER PT REQUEST I GAVE HER FRESH ICE WATER AND LET HER RN MILAN KNOW SHE WOULD LIKE PAIN MEDS.
--- NOTE | 2020-06-07 04:30 | NUR ---
awake, c/o 04/19 abd pain, medicated with bentyl 20mg po. goes back to sleep, ivf infusing w/o problems. tolerating fluids well.
--- NOTE | 2020-06-07 04:57 | NUR ---
pt resting at this time, has been medicated x2 with Bentyl 20mg po c/o abd cramping. Continoues to have semi liquid soft bms. Independent in room, IVf infusing w/o problems, tolerating fluids well, voiding QS, had small emesis x1, maalax given and had small sip then refused. c/o back troat soreness no edema noted, slight redness back of throat noted, some white patches in tongue, not present after brusing tongue. redness w/o changes. NIO written for Cepacol lozengers, semi effective. Walks in room and hallways, took a ashower. on her menses, worried about displaced IUD, to be seen by Dr Shah this am.
--- NOTE | 2020-06-07 05:11 | NUR ---
VITALS AND I&OS DONE AN DCHARTED. WARM BLANKET AND HOT PACK GIVEN PER PT REQUEST. GARBAGES EMPTIED. BEDSIDE TABLE AND CALL LIGHT IN REACH.
--- NOTE | 2020-06-07 05:22 | NUR ---
VITALS AND I&OS DONE AND CHARTED. GARBAGES EMPTIED. BEDSIDE TABLE AND CALL LIGHT IN REACH. PT NEEDS NOTHING MORE AT THIS TIME.
--- NOTE | 2020-06-07 07:58 | NUR ---
RECEIVED REPORT FROM MILAN SERRANO. PT APPEARS TO BE RESTING AT THIS TIME WITH RESPIRATIONS NOTED.
--- NOTE | 2020-06-07 08:26 | NUR ---
in pts room with . pt moaning in pain when awoken but pt appeared to be resting comfortably with respirations noted. discussed with pt that she will remove her iud in about an hour from now.
--- NOTE | 2020-06-07 10:03 | NUR ---
VITALS AND I&OS CHARTED. PATIENT RETING WITH EYES CLOSED. REFUSED BREAKFAST, THROAT HURTS. CALL LIGHT IN REACH
--- NOTE | 2020-06-07 11:36 | NUR ---
ADITI AND I HELPED PATIENT GET BACK IN BED.
--- NOTE | 2020-06-07 11:48 | NUR ---
PATIENT HAS A GOOD APPETITE AND IS ON A REGULAR DIET. STATES "I KNOW WHAT IS GOOD FOR ME BUT I DON'T ALWAYS EAT WHAT I'M SUPPOSED TO." FOR AWHILE ALL SHE WANTED WAS CORNDOGS, NOW ITS VANILLA MAC[employer]IAN YOGURT, BANANAS, AND GRANOLA. SHE LIKES OUR STEAK HERE. I REMINDED HER OF THE IMPORTANCE TO EAT PROTEIN AT EACH MEAL, BOTH HERE AND AT HOME. SHE GETS MEALS ON WHEELS WHICH IS BASICALLY A HUNGRY MAN OR YARA Wannyi FROZEN MEAL ONCE A DAY. SHE DOES NOT COOK, THINGS ARE EITHER READY TO EAT OR MICROWAVED FOR THE MOST PART. 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 NO NUTRITION INTERVENTION DONE OTHER THAN VERBAL REMINDERS ABOUT EATING PROTEIN AND A VARIETY OF FRUITS AND VEGGIES. SHE STATES SHE HAS THOUGHT ABOUT HAVING BARIATRIC SURGERY. SHE KNOWS SHE WOULD HAVE TO EAT SMALLER PORTIONS AND NOT EAT FRIED MEATS. NO OTHER NUTRITION INTERVENTION AT THIS TIME. WILL REMAIN AVAILABLE IF NEEDED FURTHER.
--- NOTE | 2020-06-07 12:20 | NUR ---
IN PTS ROOM PER PT REQUEST. PT STATING SHE NEEDS MORE ICE WATER, A NEW ICE PACK AND THAT SHE WOULD LIKE SOMETHING FOR THE PAIN. THIS RN IN ROOM WITH WHO STATED SHE CAN STOP THE IV FLUIDS AT THIS TIME.
--- NOTE | 2020-06-07 12:21 | NUR ---
PT IN BR, DR DONIS WAITING TO SEE PT. WILL CHECK BACK
--- NOTE | 2020-06-07 14:53 | NUR ---
PATIENT AWAKE IN BED. VITALS AND I&OS CHARTED. CALL LIGHT IN REACH, NO OTHER NEEDS AT THIS TIME.
--- NOTE | 2020-06-07 14:55 | NUR ---
PATIENT AWAKE, JUST FINISHED EATING SOME LUNCH. SHE HAD A FEW BITES OF A TUNA SANDWICH AND EGG SALAD SANDWICH ON WHITE BREAD, YOGURT, AND CHOCOLATE PUDDING. SHE IS STICKING TO SOFT FOODS. SHE SAID SHE IS TIRED OF THE PAIN FROM HER UC. SHE EATS THINGS SHE ISN'T SUPPOSED TO AT HOME THEN "DEALS WITH THE STOMACH PAIN." SHE DOES NOT EAT NUTS OR SEEDS. SHE LOVES SALAD BUT KNOWS SHE SHOULDN'T EAT RAW VEGGIES. I ENCOURAGED HER TO KEEP TO A LOWER-FIBER DIET UNTIL HER PAIN RESIDES. PROVIDED HER A HANDOUT FROM THE [place] ON DIET FOR ULCERATIVE COLITIS WHICH INCLUDES TIPS SUCH EAT SMALLER MEALS EVERY 3 TO 4 HOURS, TAKE A CALCIUM SUPPLEMENT IF UNABLE TO CONSUME ADEQUATE DAIRY, EAT YOGURT FOR NATURAL PROBIOTICS, STAY HYDRATED BY DRINKING AT LEAST 8 CUPS OF FLUID (PREFERABLY CAFFEINE-FREE) DAILY. SHE DOES NOT DRINK ENSURE REGULARLY AT HOME. I ENCOURAGED HER TO CONSIDER DRINKING SOME IF SHE IS UNABLE TO TOLERATE SOLID, FOODS DURING FLARE-UPS. SHE SAID SHE WILL KEEP THAT IN MIND. STATES HER WEIGHT FLUCTUATES ALL THE TIME BECAUSE SHE HAS BEEN ON PREDNISONE FOR 1 YEAR. SHE HAS NO FURTHER QUESTIONS AT THIS TIME. MY NAME AND OFFICE NUMBER PROVIDED IN CASE SHE DOES HAVE A QUESTION DOWN THE ROAD. WILL CONTINUE TO MONITOR.
--- NOTE | 2020-06-07 15:56 | NUR ---
PATIENT INDEPENDENT AND ACCORDING TO SPLICER HELPER STILL PLANNING TO DISCHARGE HOME.
--- NOTE | 2020-06-07 16:05 | NUR ---
Report received from Lisa SERRANO. Pt sleeping at this time.
--- NOTE | 2020-06-07 16:58 | NUR ---
Pt awoke from her nap and states her abd pain is a 6/10 at this time. See emar. Pt states she has no other new problems to include no problems related to her IUD removal.
--- NOTE | 2020-06-07 19:20 | NUR ---
Pt resting, eyes closed, no resp distress, sl, fluids and call light at bedside
--- NOTE | 2020-06-07 21:36 | NUR ---
resting, awakes easily, up to br, c/o abd cramping, and painful stoold, had liquid soft bm and urinare QS, back to bed. Medicated with Bentyl 20mg po. sl intact, patent. On room air, coop with assessment tolerating fluids and diet well
--- NOTE | 2020-06-07 22:16 | NUR ---
c/o upset stomach, medicated with Maalox. In bed watching tv, tolerated grape juice
--- NOTE | 2020-06-07 22:31 | NUR ---
up to shower,
--- NOTE | 2020-06-07 23:30 | NUR ---
out of shower, back in bed, coop, voided, no c/o
--- NOTE | 2020-06-07 23:41 | NUR ---
jacqui given on request, no c/o pain, on room air,
--- NOTE | 2020-06-07 23:50 | NUR ---
c/o abd and back pain, medicated with oxycodone .
--- NOTE | 2020-06-08 01:25 | NUR ---
RESTING, EYES CLOSED, NO RESP DISTRESS, TURNS SELF IN BED.
--- NOTE | 2020-06-08 04:25 | NUR ---
resting, no distress, call light at [facility]
--- NOTE | 2020-06-08 04:42 | NUR ---
c/o 04/19 abd pain, medicated with bentyl 20mg po, warm pad to abd and warm blaket given on requests. voided and had small bm,
--- NOTE | 2020-06-08 05:19 | NUR ---
pt has slept off and on, continues to c/o abd cramping, medicated with oxycodone x1, and bentyl x2, maalox x1 with good to fair pain relief. Continues to have loose semi liquid bm, on hermenses, had Misplaced IUD removed yesterday am by Dr Shah. SL patent, get SOlucorteff. Tolerating liquids and diet well. Independent in room, took a shower. uses call light appropriately
--- NOTE | 2020-06-08 06:01 | NUR ---
Up to br, continue to c/o increased abd cramping and abd pain, fair to little relief from bentyl, will medicate with Oxycodone. Continues to have liquid bm and voiding qs urine. tolerating liqudis well, c/o sore throat again, will be medicated with Cepacol lozengers. Pt indepedent in room
--- NOTE | 2020-06-08 07:36 | NUR ---
RECEIVED REPORT FROM MILAN SERRANO. PT APPEARS TO BE RESTING AT THIS TIME WITH RESPIRATIONS NOTED AND CALL LIGHT WITHIN REACH.
--- NOTE | 2020-06-08 08:36 | NUR ---
THIS RN IN PTS ROOM TO GIVE MORNING MEDS AND TO DO ASSESSMENT. PT RESTING COMFORTABLY IN BED. PT DROWSY THIS AM BUT ABLE TO ANSWER YES/NO TO QUESTIONS. PT HAS NO COMPLAINTS OR CONCERNS AT THIS TIME.
--- NOTE | 2020-06-08 10:44 | NUR ---
PATIENT IN BED RESTING WITH EYES CLOSED. VITAL SIGNS TAKEN, NO INTAKE OR OUTPUT, RN NOTIFIED. CALL LIGHT IN REACH. NO FURTHER NEEDS AT THIS TIME.
--- NOTE | 2020-06-08 19:30 | NUR ---
FINISHED GETING REPORT FROM DAYSMOFT RN, PATIENT RESTING QUIETLY, EYES CLOSED. PATIENT LOOKS LIKE SHE TOOK A LONG SHOWER, AND ALL THE TOWELS AND WASH CLOTHES PICKED UP. CALL LIGHT IN REACH.
--- NOTE | 2020-06-08 21:48 | NUR ---
PATIENT GOT A 2ND OXYCODEN A LITTLE EARLY TO [facility] DUE TO LACK OF SUPPLIES, AND PATIENT COULD HAVE A SECOND ONE, I JUST COULDN'T GET BACK IN THE ROOM QUICK ENOUGH WITH OTHER PATIENT'S NEEDING CARE. PATIENT ALSO GOT A HEAT PACK, SHE HAD VOIDED AND HAD A LIQUID STOOL WITH A SMALL DRIP OF BLOOD. CALL LIGHT IN REACH AND PATIENT GIVEN FRESH WATER.
--- NOTE | 2020-06-08 22:44 | NUR ---
PATIET RESTING QUIETLY AT THIS TIME EYES CLOSED, CALL LIGHT IN REACH, RESPIRATIONS REGULAR AND EVEN.
--- NOTE | 2020-06-09 00:06 | NUR ---
PATIENT UP TO BATHROOM INDEPENDENT, NO NEEDS AT THIS TIME, CALL LIGHT IN REACH. PATIENT CURRENTLY USING THE RESTROOM.
--- NOTE | 2020-06-09 00:30 | NUR ---
PATIENT GIVEN A NEW HEAT PACK AND CUP OF ICE. NO OTHER NEEDS AT THIS TIME. CALL LIGHT IN REACH.
--- NOTE | 2020-06-09 02:36 | NUR ---
PATIENT RESTING QUIETLY, EYES CLOSED, RESPIRATIONS REGULAR AND EVEN, CALL LIGHT IN REACH.
--- NOTE | 2020-06-09 04:36 | NUR ---
PATIENT RESTING QUIETLY, EYES CLOSED, RESPIRATIONS REGULAR AND EVEN, CALL LIGHT IN REACH.
--- NOTE | 2020-06-09 07:22 | NUR ---
PATIENT'S IV IN LEFT HAND WENT BAD LEAKING AND A NEW 22G PLACED IN THE LFA. PATIENT ALSO GOT 2 OXYCODONE FOR PAIN THIS MORNING. SHE HAD 6 FOUL LIQUID STOOLS LAST NIGHT AND IS INDEPENDENT IN ROOM ON C-DIFF PRECAUTIONS VS WITHIN CALL PARAMETERS. REGPORT TO DAY SHIFT RN.
--- NOTE | 2020-06-09 07:32 | NUR ---
Recieved report from Lyndon Fischer RN. Patient with eyes closed in bed, head of bed elevated. Opens eyes to noise. IV converted to SL. Heat pack provided and package of wipes provided per patient request. Denies other needs at this time. Dr. Shah in to see patient. Patient states she is having light vaginal bleeding at this time. Call light in reach. Bed rails up X2.
--- NOTE | 2020-06-09 09:25 | NUR ---
Assessment completed. Patient wakes when spoken to. Call light in reach, bed rails up X2. States pain is slightly improved. AM medications given, takes without difficulty. Educated on medications and low potassium this AM. Verbalizes understanding. Denies other needs at this time.
--- NOTE | 2020-06-09 11:11 | NUR ---
WHEN I WENT INTO HER ROOM TO DO HER VITALS. PATIENT WAS TRYING TO SLEEP.
--- NOTE | 2020-06-09 11:19 | NUR ---
Patient lying in bed, head of bed slightly elevated, with eyes closed. IV pump alarming, infusion completed. IV pump shut off. Patient does not wake while staff in room. Respirations are currently even and unlabored. Allowed to rest. Call light in reach, bed rails up X2.
--- NOTE | 2020-06-09 11:32 | NUR ---
Ambulates to bathroom, independently. States she does not have hat in toilet to measure voids. Continent of urine X1 now.
--- NOTE | 2020-06-09 14:56 | NUR ---
MEDICATIONS GIVEN PRESCRIBED. CALL LIGHT IN REACH. ASSESSMENT COMPLETED. NO CHANGES FROM AM ASSESSMENT. DENIES OTHER NEEDS AT THIS TIME.
--- NOTE | 2020-06-09 17:12 | NUR ---
Lying in bed with lights off. Respirations even and unlabored. Allowed to rest, eyes closed.
--- NOTE | 2020-06-09 18:21 | NUR ---
Patient in bed most of today. Ambulates to bathroom independently. States she has had 4 or 5 loose stools today. Potassium ordered for low potassium this morning. Took AM dose without difficulty. Does not take PM dose after multiple prompts. Educated on need to take medication. Verbalizes understanding.
--- NOTE | 2020-06-09 19:25 | NUR ---
REPORT RECEIVED FROM DAY SHIFT RN. PT LYING IN BED ALERT AND ORIENTED. PHYSICIAN NEONATOLOGY IN ROOM SETTING PT UP FOR SHOWER. DENIES NEEDS AT THIS TIME. WHITE BOARD UPDATED. CALL LIGHT IN REACH.
--- NOTE | 2020-06-09 19:27 | NUR ---
PATIENT SAID SHE WOULD LIKE TO TAKE A SHOWER SOMETIME TONIGHT. SO I SET HER SHOWER UP FOR HER AND ALSO SO WAGE AND HOUR INVESTIGATOR COULD WRAP HER IV UP.
--- NOTE | 2020-06-09 20:45 | NUR ---
EVENING ASSESSMENT COMPLETE. SCHEDULED MEDS ADMINISTERED PER EMAR. PRN ADMINISTERED FOR PAIN. IV ABX INFUSING. PT UP TO AMBULATE MULTIPLE LAPS AROUND UNIT. NATHALIE WELL.
--- NOTE | 2020-06-09 21:45 | NUR ---
EVENING ASSESSMENT COMPLETE. SCHEDULED MEDS ADMINISTERED PER EMAR. PRN GIVEN FOR PAIN. PT DENIES NAUSEA. REPORTS ONE STOOL THIS PERLA THAT "WAS NOT FORMED". VSS. DENIES FURTHER NEEDS. CALL LIGHT IN REACH.
--- NOTE | 2020-06-09 22:34 | NUR ---
PT RESTING IN BED. LOOSE BM X 2 THIS PERLA. IV ABX INFUSING. FRESH WATER PROVIDED. NO FURTHER NEEDS. CALL LIGHT IN REACH.
--- NOTE | 2020-06-10 01:54 | NUR ---
CALL LIGHT ANSWERED. PT IN BR HAVING BM. C/O ABD PAIN. PRN ADMINISTERED PER EMAR. PT WAS ABLE TO EAT 100% OF TURKEY SAND LUNCHBOX. IN BED EATING APPLE SAUCE AT THIS TIME. NO FURTHER NEEDS.
--- NOTE | 2020-06-10 05:51 | NUR ---
ASSESSMENT COMPLETE. PRN ADMINISTERED FOR KNEE AND ABD PAIN. IV ABX INFUSING. VS AND I&O COMPLETE. PT HAD MED SOFT BM. VOIDING QS. PT DENIES FURTHER NEEDS AT THIS TIME. CALL LIGHT IN REACH.
--- NOTE | 2020-06-10 06:28 | NUR ---
CALL LIGHT ANSWERED. PT SL. WARM PACKS PROVIDED PER REQUEST FOR KNEE PAIN.
--- NOTE | 2020-06-10 07:30 | NUR ---
REPORT RECEIVED. PT IN BED WITH EYES CLOSED. RESPIRATIONS EQUAL AND NONLABORED. PAIN REPORTED AT 03/20. CALL LIGHT IN REACH.
--- NOTE | 2020-06-10 09:45 | NUR ---
SPOKE WITH PATIENT IN ROOM. PATIENT STILL PLANNING TO DISCHARGE HOME. HAS A RIDE TO CALL. NO BARRIERS KNOWN. CM WILL FOLLOW NEEDED.
--- NOTE | 2020-06-10 10:00 | NUR ---
ROUNDED WITH DR MALDONADO. PLAN OF CARE DISCUSSED. ASSESSMENT COMPLETED. STOOLS SOFT LIQUID. ABDOMINAL PAIN 6/10. NO NAUSEA. TOLERATING REGULAR. PT LIKES LIGHTS OFF. VOIDING WELL.
--- NOTE | 2020-06-10 11:14 | NUR ---
PT ALERT, ORIENTED AND SITTING IN DARKENED RM EATING BREAKFAST. PT SAID SHE HOPES TO DC TOMORROW, HAS BEEN DIFFICULT NOT BEING ABLE TO WATCH HER SON PLAY BASEBALL. JUST BEING ABLE TO CARE FOR HER FAMILY AND BE WITH THEM. GAVE ENCOURAGEMENT TO PT AND BLESSING. PT SAID SHE IS GOING TO WALK AFTER HER MEAL. SHE SAID HE LEGS ARE SWELLING
--- NOTE | 2020-06-10 11:44 | NUR ---
PATIENT ASLEEP IN BED. CALL LIGHT WITHIN REACH. NO FURTHER NEEDS AT THIS TIME.
--- NOTE | 2020-06-10 13:00 | NUR ---
PT ATE 100% OF LUNCH. NO N/V AFTER EATING. PAIN 12/18. CALL LIGHT IN REACH.
--- NOTE | 2020-06-10 14:14 | NUR ---
PATIENT RESTING IN BED. CALL LIGHT WITHIN REACH. SHOWER PLANNED FOR LATER. CALL LIGHT WITHIN REACH.
--- NOTE | 2020-06-10 17:00 | NUR ---
ROUNDED ON PT. REPORTS MILD PAIN TOELRABLE. LYING IN BED. PLANS ON SHOWERING. [facility]. WANTS TO ORDER DINNER LATER.
--- NOTE | 2020-06-10 19:35 | NUR ---
CALL LIGHT ANSWERED. PATIENT ASKED FOR TOOTHBRUSH AND TOOTHPASTE. PROVIDED. PATIENT WAS IN THE SHOWER.
--- NOTE | 2020-06-10 21:00 | NUR ---
took pt a heat pack and cup of ice, pt requested nothing further at this time
--- NOTE | 2020-06-10 21:45 | NUR ---
took vitals and i&os done, gave fresh cup of ice, put a new hat in toilet, gave new socks, pt requested nothing further at this time, left pt to get ready to walk the halls
--- NOTE | 2020-06-10 22:15 | NUR ---
PT AMBULATING IN HALLWAY, NATHALIE WELL.
--- NOTE | 2020-06-10 23:50 | NUR ---
PATIENT ASKED FOR LUNCH BOX, CHIPS AND EXTRA MAYONAISE. PROVIDED.
--- NOTE | 2020-06-11 00:27 | NUR ---
pt called for fresh ice cup and personal water bottle, provided pt with warm blanket and new heat pad, pt has no further requests at this time
--- NOTE | 2020-06-11 01:21 | NUR ---
CALL LIGHT ANSWERED, pt STATES "MY STOMACH JUST HURTS" PRN BENTYL ADMINISTERED REQUESTED. pt REPORTS DIARRHEA X 3. DENIES ADDITIONAL NEEDS. LIGHTS OFF IN ROOM. DOOR SHUT REQUESTED. CALL LIGHT IN REACH.
--- NOTE | 2020-06-11 02:55 | NUR ---
PT RESTING IN BED WITH EYES CLOSED, NAD.
--- NOTE | 2020-06-11 03:17 | NUR ---
pt requested new heat pack, provided, pt ask to see rn abt pain mgmt, told rn
--- NOTE | 2020-06-11 03:51 | NUR ---
PRN ADMINISTERED FOR KNEE/ABD PAIN. PT REPORTS NOT BEING ABLE TO SLEEP WELL, STATES "I'M UP EVERY HOUR POOPING". 400 ML DARK LIQ STOOL EMPTIED FROM HAT. ASSESSMENT COMPLETE. NO ADDITIONAL NEEDS AT THIS TIME.
--- NOTE | 2020-06-11 05:00 | NUR ---
took pt vitals, i&os are done, gave pt fresh cup of ice and personal water bottle, pt has no further requst
--- NOTE | 2020-06-11 05:30 | NUR ---
PRN ADMINISTERED FOR INDIGESTION. PT REPORTS SHE IS STILL UNABLE TO GET COMFORTABLE AND SLEEP WELL ONE MORE LIQ STOOL.
--- NOTE | 2020-06-11 07:49 | NUR ---
Bentyl 20mg po for reports of abdominal cramping/pain.
--- NOTE | 2020-06-11 09:25 | NUR ---
PATIENT RESTING IN BED. VITAL SIGNS AND I&O DONE. CALL LIGHT WITHIN REACH. NO OTHER NEEDS AT THIS TIME
--- NOTE | 2020-06-11 10:10 | NUR ---
PATIENT RESTING IN BED. PATIENT REFUSED TO TAKE A SHOWER TODAY. CALL LIGHT WITHIN REACH. NO OTHER NEEDS AT THIS TIME
--- NOTE | 2020-06-11 11:14 | NUR ---
Pt resting in bed, eyes closed, respirations are even and non labored. Personal supplies and call light within reach.
--- NOTE | 2020-06-11 12:27 | NUR ---
PT ASLEEP, COULD NOT AWAKEN HER. WILL CHECK BACK
--- NOTE | 2020-06-11 12:31 | NUR ---
Tylenol 500mg po for reports of 7/10 knee, joing and abd pain.
--- NOTE | 2020-06-11 14:12 | NUR ---
PATIENT RESTING IN BED. VITAL SIGNS AND I&O DONE. CALL LIGHT WITHIN REACH. NO OTHER NEEDS AT THIS TIME
--- NOTE | 2020-06-11 14:23 | NUR ---
PT ALERT, ORIENTED AND SITTING UP IN BED ON PHONE. PT SAID SHE IS NOT HAVING THE BEST DAY. DR DONIS IS CONSULTING. PT IS TO HAVE IMAGING LATER TODAY. GAVE ENCOURAGEMENT, PT IS TRYING TO MAKE THE BEST OF HER SITUATION. REQUESTED THAT I PRAY. WILL FOLLOW
--- NOTE | 2020-06-11 17:09 | NUR ---
Pt in bed, alert and oriented x4. Pt has no distress noted, respirations even and non labored. No needs at this time. Call light within reach.
--- NOTE | 2020-06-11 17:18 | NUR ---
PATIENT RESTING IN BED. VITAL SIGNS AND I&O DONE. CALL LIGHT WITHIN REACH. NO OTHER NEEDS AT THIS TIME
--- NOTE | 2020-06-11 17:44 | NUR ---
Oxycodone 5mg po for reports of 5/10 joint/abd pain.
--- NOTE | 2020-06-11 19:24 | NUR ---
REPORT RECEIVED FROM DAY SHIFT RN. PT LYING IN BED WITH EYES CLOSED, NAD. NO DISTRUBED AT THIS TIME. CALL LIGHT IN REACH.
--- NOTE | 2020-06-11 20:06 | NUR ---
pt vitals are done, i&os are done, left pt to rest, rn will be in shortly
--- NOTE | 2020-06-11 20:29 | NUR ---
got pt a walker per rn
--- NOTE | 2020-06-11 20:29 | NUR ---
ASSESSMENT COMPLETE. SCHEDULED MEDS ADMINISTERED PER EMAR. PT REPORTS PAIN IS TOLERABLE. RIGHT KNEE SWOLLEN AND ELEVATED ON PILLOW. PT REQUESTED WALKER FOR AMBULATION, PROVIDED. PT DRANK REMAINING BOTTLE OF MAG CITRATE FROM BED SIDE. CL LIQUIDS PROVIDED. NO FURTHER NEEDS AT THIS TIME. CALL LIGHT IN REACH.
--- NOTE | 2020-06-11 23:43 | NUR ---
PRN ADMINISTERED FOR PAIN. PT REPORTS MULTIPLE LOOSE BM'S. UP TO SHOWER AT THIS TIME. LINENS CHANGED.
--- NOTE | 2020-06-11 23:54 | NUR ---
got pt bed linens changed while Sinta prep pt for shower, pt will call as needed
--- NOTE | 2020-06-12 02:24 | NUR ---
SCHEDULED MEDS ADMINISTERED. PT REPORTS MULTIPLE TRIPS TO BR FOR LOOSE STOOL. WARM PACK PROVIDED. DENIES FURTHER NEEDS.
--- NOTE | 2020-06-12 04:21 | NUR ---
PT IN BED RESTING WITH EYES CLOSED, NAD.
--- NOTE | 2020-06-12 05:39 | NUR ---
got pt new heat pack and warm blanket, rn in for am meds and assesment
--- NOTE | 2020-06-12 05:48 | NUR ---
PT C/O BACK AND KNEE PAIN. PRN ADMINISTERED WITH A SIP OF WATER. ASSESSMENT COMPLETE. VSS. PT REPORTS LOOSE STOOL X 3 DURING THE NIGHT. DENIES FURTHER NEEDS. CALL LIGHT IN REACH.
--- NOTE | 2020-06-12 06:31 | NUR ---
TELEPHONE ORDERS RECEIVED FROM DR. DONIS. VERIFIED WITH READ BACK METHOD.
--- NOTE | 2020-06-12 06:32 | NUR ---
CALL LIGHT ANSWERED. ICE PACK PROVIDED. BLINDS DOWN.
--- NOTE | 2020-06-12 07:34 | NUR ---
Pt awake resting in bed. Pt reports pain in her right knee and stomach. Oxycodone and tylenol in use for this. Pt remains npo at this time for planned lower scope this morning. Pt has no needs at this time. Personal supplies and call light within reach.
--- NOTE | 2020-06-12 09:00 | NUR ---
Spoke with Ria. She plans on colonoscopy today. States she feels somewhat better, but is hungry as she has been npo for scope. Denies needs.
--- NOTE | 2020-06-12 09:43 | CONS ---
[facility] [address], [place] [address] Signed DATE OF CONSULTATION: 06/11/2020 CONSULTING PHYSICIAN: Nilda Donis MD REQUESTING PHYSICIAN: Dr. Monsalve. PROBLEM: Intractable ulcerative colitis. HISTORY OF PRESENT ILLNESS: This 40-year-old white woman (BMI 34.4) has had ulcerative colitis, diagnosed for over 14 years or more. She has been managed in part by Ms. Blank, nurse practitioner in Gastroenterology in [place] and subsequently care assumed by in [facility]. The patient tells me she was discharged from care by the nurse practitioner due to missing too many appointments. The patient was admitted to the hospital on this occasion with intractable diarrhea, considered to be in flare from previously diagnosed ulcerative colitis. She was admitted initially by Dr. Palomino and treated with hydrocortisone intravenously administered. It is notable that she has been on prednisone for at least a year (50 mg daily). She tells me that she has had other various medications possibly to include Remicade, possibly to include Humira, and unknown if . She has been on Lialda in the past. All of these medicines have been inadequate in controlling her symptoms largely. She has concomitant problems of arthralgias and currently is bothered by right knee swelling and arthralgia. Though she was improving upon her admission with IV steroids, she had recurrence of diarrhea and loose stools. She was noted at admission to have an elevated white count of 16.8 with hematocrit of 27.1, and band form 17%. Her platelet count was 369,000. Her white count is normal as of yesterday at 6.8 with hematocrit 29.6. I was consulted for consideration of colonoscopy. Dr. Monsalve had called who recommended colonoscopy be performed at this time as it has been a few years since her last colonoscopy. A C. difficile study was obtained and was found to be negative. I note no other enteric cultures that have been obtained until June 08. Moderate growth of enteric patricia was noted on June 10. Sugar toxin was considered negative from June 11. Electronically Signed By: NILDA DONIS MD 06/12/20 0943 PATIENT NAME: LIDA GALAVIZ CONSULTATION DATE OF : 84 REPORT #: [id number] PHYSICIAN: NILDA DONIS MD PCP: LORRIE GARCIA PA-C REPORT IS CONFIDENTIAL AND NOT TO BE RELEASED WITHOUT AUTHORIZATION [facility] [address], [place] [address] Signed The patient has essentially been quite uncomfortable and not doing well for several years, only worsened recently with withdrawal of her usual prednisone dose of 15 mg daily. The patient ran out of her prescription apparently and was off it for more than a week from what I can gather. She has never had surgery in the past other than tubal ligation from what I gather. SOCIAL HISTORY: She has a 15-year-old son. She is . 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 She is part of the [facility] Medicaid program. REVIEW OF SYSTEMS: She denies any shortness of breath or chest pain. She has had no dysphagia or dysuria. Her bowel movements of number between 10 and 15 since admission and although improving in number and consistency have returned to a more frequent and less formed situation. PHYSICAL EXAMINATION: GENERAL: This is a pleasant reasonable white woman, who looks somewhat spent. VITAL SIGNS: Temperature currently is 98.1, pulse is 96, blood pressure 142/77, O2 saturation on room air is 96%. HEENT: Trachea is midline. Mucous membranes are reasonably moist. CHEST: Shows normal respiratory excursion. There is no tachypnea. ABDOMEN: Somewhat obese. Palpation reveals no focal tenderness. There is no clear evidence of ascites. EXTREMITIES: Show no clubbing, cyanosis, or edema. She does have swelling of her right knee. There is vague bruising of her right lower extremity, which she says has been present quite some time. LABORATORY STUDIES: As previously noted. A COVID-19 test is negative from 06/03/2020. ASSESSMENT: The patient appears to have failure of medical therapy for chronic ulcerative colitis, based on what I have learned and on the examination, I have seen. It is most unusual and slightly disturbing that she has been on prednisone for over a year. From what I gather, she has had failure of other nonsteroid medications. I note that she lists as an admission medication of Motrin, likely related for arthritis. This would be contraindicated in the setting of ulcerative colitis. Reviewed this with Dr. Monsalve as well. I think it is quite unlikely that she has another competing source of her diarrhea problem (celiac disease, etc.), though inflammatory bowel disease and celiac disease can certainly co-exist. It is reasonable to perform colonoscopy to assess her level of inflammation. An abdominal KUB was obtained earlier today at my request, which shows no Electronically Signed By: NILDA DONIS MD 06/12/20 0943 PATIENT NAME: LIDA GALAVIZ CONSULTATION DATE OF : 84 REPORT #: [id number] PHYSICIAN: NILDA DONIS MD PCP: LORRIE GARCIA PA-C REPORT IS CONFIDENTIAL AND NOT TO BE RELEASED WITHOUT AUTHORIZATION [facility] [address], [place] [address] Signed sign of toxic megacolon. A CT scan was performed at the time of her initial evaluation, which did not show a dilated colon or free air, but did of course show edematous colonic wall. ASSESSMENT AND PLAN: The risks of bleeding, infection, and perforation related to colonoscopy were reviewed with her in detail. She understands and wished to proceed. We will plan to do this tomorrow. Has a bowel prep since she has been on a "soft" diet. We will give only magnesium citrate as her frequent bowel movements have largely provided prep as it is. I discussed with her (as she has discussed with others in the past) a strong consideration that surgical definitive management be considered. This would involve total proctocolectomy with ileoanal pull-through (J-pouch). We did not get into much detail about that; for now, the plan is simply to establish the level of inflammation. I will review her medications as well. Of special note, she is especially increased risk of deep venous thrombosis and pulmonary embolism and we will assure that she has adequate prophylaxis in that regard. MD GUILHERME Nielsen/AJ /[id number] cc: Shannon Monsalve MD Copies: SHANNON MONSALVE DO ~ Electronically Signed By: NILDA DOINS MD 06/12/20 0943 PATIENT NAME: LIDA GALAVIZ CONSULTATION DATE OF : 84 REPORT #: [id number] PHYSICIAN: NILDA DONIS MD PCP: LORRIE GARCIA PA-C REPORT IS CONFIDENTIAL AND NOT TO BE RELEASED WITHOUT AUTHORIZATION
--- NOTE | 2020-06-12 12:49 | NUR ---
Patient left floor for scope with surgical, RN.
--- NOTE | 2020-06-12 13:06 | NUR ---
PT RESTING IN BED, WAITING FOR SCOPE LATER TODAY. PT ADMITTED TIME IS PASSING SLOWLY. SHE IS ALSO WISHING SHE COULD EAT, NPO FOR SCOPE. PT SEEMS TO BE COPING WITH EXTENDED STAY AT [facility]. PT REQUESTED PRAYER, WILL CONTINUE TO FOLLOW
--- NOTE | 2020-06-12 13:38 | NUR ---
PATIENT IN SURGERY. I&O DONE. LINENS CHANGED. NO OTHER NEEDS AT THIS TIME
--- NOTE | 2020-06-12 14:43 | NUR ---
06/12/20 1443 Lilliana Thomas 5923-PATIENT ARRIVED TO PACU ON RA DROWSY ANSWERING QUESTIONS EYES CLOSED. IVF INFUSING. PATIENT LAYING RIGHT LATERAL ABDOMEN SOFT ENCOURAGED TO PASS GAS. PATIENT HAS REDNESS TO CHEST AND REPORTS "HAVE HAD THAT" REPORTS ABDOMINAL PAIN 7/10 CRAMPINESS.
--- NOTE | 2020-06-12 15:16 | NUR ---
Pt back in room at this time. Pt alert and oriented x4. Vital signs are stable, afebrile. cpox intact, 98% on room air. Pt reports gas pain. Oriented pt to room and call light. Pt due to void. Personal supplies and call light within reach.
--- NOTE | 2020-06-12 16:20 | NUR ---
Pt alert and oriented x4, sitting up in bed watching tv. Pt reports her pain is tolerable, denies nausea. IV infusing without difficulty. Pt has voided recently. No needs. Personal supplies and call light within reach.
--- NOTE | 2020-06-12 17:25 | NUR ---
Pt sitting up in bed eating. Pt reports pain is tolerable at this time. Cpox intact, sat level 96% on room air. Pt recently voided. No needs. Personal supplies and call light within reach.
--- NOTE | 2020-06-12 19:30 | NUR ---
PATIENT RESTING QUIETLY EYES CLOSED, RESPIRATIONS REGULAR AND EVEN. PATIENT'S FATHER AT BEDSIDE. REPORT GIVEN TO THIS NURSE BY DAYSHIFT RN. NO NEEDS AT THIS TIME, AND CALL LIGHT IN REACH.
--- NOTE | 2020-06-12 21:33 | NUR ---
CALL LIGHT ANSWERED, CUP OF ICE AND SANDWICH BOX PROVIDED REQUESTED. CALL LIGHT IN REACH.
--- NOTE | 2020-06-12 22:15 | NUR ---
PATIENT HAVING 8/10 PAIN AND GIVEN 1 5MG OXYCODONE AND 2 BENTYL ALONG WITH HER OTHER MEDS, SKIN COLOR IS BETTER AND PATIENT'S APPITITE IS IMPROVED SINCE I HAD HER A FEW DAYS AGO. PATIENT GOING TO TRY AND GET SOME SLEEP. CALL LIGHT IN REACH.
--- NOTE | 2020-06-12 23:21 | NUR ---
PATIENT RESTING QUIETLY AT THIS TIME, CALL LIGHT IN REACH AND PATIET WATCHING TV.
--- NOTE | 2020-06-13 00:19 | NUR ---
PATIENT REQUESTED 2 PUDDINGS AND SOME EDITA CRACKERS AND A NEW ICEBAG AND HEAT BAG WHICH WERE GIVEN. NEW IV BAG HUNG.
--- NOTE | 2020-06-13 02:27 | NUR ---
PATIENT ASKED FOR NEW ICE WATER AND NEW ICE BAG, THESE WERE GIVENA ND PATIENT SAID SHE DID NOT NEED ANY PAIN MEDICATION AT THIS TIME. PATIENT WATCHING TV QUIETLY IN BED. CALL LIGHT IN REACH.
--- NOTE | 2020-06-13 04:00 | NUR ---
pt USED CALL LIGHT TO ASK FOR PAIN MEDICATION, RN NOTIFIED. pt REQUESTED TWO VANILLA PUDDINGS, A CUP OF ICE, AND A HEAT PACK. NOTHING FURTHER NEEDED AT THIS TIME.
--- NOTE | 2020-06-13 04:17 | NUR ---
PATIENTHAVING 7/10 ABD PAIN AND JUST GOT BACK FROM THE BATHROOM. 5MG PO OXYCODONE AND TO BENTYL=20MG PO GIVEN. PATIENT BACK IN BED WATCHING TV. CALL LIGHT IN REACH.
--- NOTE | 2020-06-13 05:23 | NUR ---
VS AND I&Os COMPLETE. MAGGIE ALVARADO IN ROOM WITH pt.
--- NOTE | 2020-06-13 05:26 | NUR ---
PATIENT STILL HAVING LIQUID STOOLS. IV WNL AND RUNNING. PAIN AT 5/10 WHICH IS TOLERABLE AT THIS TIME. PATIENT WATCHING TV AND HAS ONLY GOT A LITTLE SLEEP TONIGHT. PATIENT BASICALLY INDEPENDENT IN ROOM. CALL LIGHT IN REACH. VS STABLE.
--- NOTE | 2020-06-13 07:15 | NUR ---
REPORT RECEIVED FROM MAGGIE ALVARADO. PT SITITNG UP IN BED. PT REPORTS 7/10 PAIN BUT DECLINES TYLENOL. HEAT PACK PROVIDED. NO ADDITIONAL REQUESTS OR COMPLAINTS. CALL LIGHT WITHIN REACH.
--- NOTE | 2020-06-13 08:23 | NUR ---
MORNING ASSESSMENT DUE. PT UP IN BED EATING SCRAMBLED EGGS, PANCAKES, JUICE AND PEANUTBUTTER FOR BREAKFAST. EDUCATION DONE WITH PT REGARDING LOW FIBER DIET. PT DENIES NAUSEA AND HAS AN EXCELLENT APPITITE. ASSESSMENT DONE. MINOR EDEMA NOTED TO BLE AND HANDS. LUNG SOUNDS CLEAR. BOWEL TONES ACTIVE. PT REPORTS SHE IS FEELING "BETTER TODAY." PT REPORTS 7/10 PAIN BUT DECLINES TYLENOL. MEDICATIONS GIVEN. PT VERY TALKATIVE THIS MORNING AND APPEARS IN GOOD SPIRITS. NO ADDITIONAL REQUESTS OR COMPLAINTS AT THIS TIME. CALL LIGHT WITHIN REACH.
--- NOTE | 2020-06-13 10:04 | NUR ---
NANOTECHNOLOGY ENGINEERING TECHNICIAN CALLS THIS RN TO BEDSIDE WITH POSSIBLE BLOOD IN PTS STOOL. STOOL APPEARS MUCOID AND HAS PLACES OF REDNESS NOTED. DR. BAILEY UPDATED. NO NEW ORDERS, DENIES NEED FOR HEME OCCULT BLOOD TEST AT THIS TIME. PT UPDATED. PT DENIES ADDITIONAL REQUESTS OR COMPLAINTS. CALL LIGHT WITHIN REACH. PT ENCOURAGED TO AMBULATE. DECLINES AT THIS TIME STATING "MAYBE LATER." NO ADDITIONAL REQUESTS OR COMPLAINTS.
--- NOTE | 2020-06-13 13:06 | NUR ---
Spoke with Ria. Discussed plan for dc tomorrow. She denies needs and will set up appts. Boyfriend and son will assist her with any needs. She states boyfriend is off work and they are cleaning the house as we speak.
--- NOTE | 2020-06-13 13:08 | NUR ---
PT IN BED WITH TV ON AND A LIGHT ON. PT SMILED, HAD ENGAGING VISIT. PT SAID DISCUSSION REGARDING SURGERY WHEN FLAREUP IS OVER. PT SEEMS ACCEPTING OF THIS PT REQUESTED PRAYER, WILL FOLLOW NEEDED
--- NOTE | 2020-06-13 13:46 | NUR ---
AFTERNOON ASSESSMENT AND MEDICATION DUE. PT RESTING IN BED. PT REPORTS 7/10 PAIN, SEE MAR FOR MEDICATION GIVEN. IV SALINE LOCKED PER MD ORDER. ALCOHOL CAPS APPLIED. ABDOMEN SOFT. BOWEL TONES HEARD. PTS STOOL APPEARS SLIGHTLY MORE FORMED THAN THIS MORNING. PT TOLERATING PO INTAKE WITH GOOD APPITTIE, EATING 100% OF MEALS. LUNG SOUNDS CLEAR. PT ENCOURAGED TO AMBULATE. PT DECLINES AT THIS TIME. NO ADDITIONAL REQUESTS OR COMPLAINTS. CALL LIGHT WITHIN REACH. BED RAILS UP.
--- NOTE | 2020-06-13 14:48 | NUR ---
THIS RN TO ROOM TO CHECK ON PT. PT RESTING WITH EYES CLOSED. RESPIRATIONS EVEN AND UNLABORED. BED RAILS UP. CALL LIGHT WITHIN REACH. PT ALLOWED TO REST.
--- NOTE | 2020-06-13 17:32 | NUR ---
THIS RN TO ROOM TO CHECK ON PT. PT REPORTS 7/10 PAIN AND REQUESTS PAIN IN ABDOMEN MEDICATION. SEE MAR FOR MEDICATION GIVEN. PT ENCOURAGED TO AMBULATE. PT REFUSES AT THIS TIME. FRESH ICE AND WATER PROVIDED. PT DENIES ADDITIONAL REQUESTS OR COMPLAINTS. CALL LIGHT WITHIN REACH.
--- NOTE | 2020-06-13 17:47 | NUR ---
PT HERE FOR COLITIS. INDEPENDANT IN ROOM THIS SHIFT. PT ENCORUAGED TO AMBULATE AND GET UP OUT OF BED THIS SHIFT, PT CONSISTANTLY DECLINES. PT TOLERATING LOW FIBER DIET WITH GOOD APPITITE. MUCOID STOOL CONTINUES. PRN PAIN MEDICAITON GIVEN FOR ABDOMINAL PAIN. PT VOIDING QUANTITY SUFFICIENT. PT USES CALL LIGHT APPROPRIATLY.
--- NOTE | 2020-06-13 18:34 | OR ---
[facility] [address] [place] [address] Signed DATE OF OPERATION: 06/12/2020 SURGEON: Nilda Donis MD PREOPERATIVE DIAGNOSES: 1. Longstanding ulcerative colitis, recent flare, refractory to the usual methods. 2. Persistent steroid use greater than one year (prednisone). POSTOPERATIVE DIAGNOSIS: Moderately severe active ulcerative colitis. PROCEDURES: Total colonoscopy to cecum with partial intubation of ileum and multiple biopsies. ANESTHESIA: Intravenous sedation, fentanyl 200 mcg and Versed 7 mg. INDICATIONS: This 40-year-old white woman is a patient of Dr. Monsalve, hospitalist, previously Dr. Donis. She was admitted with multiple bouts of diarrhea and CT scan findings consistent with colitis. She has carried a long-standing diagnosis greater than 14 years of ulcerative colitis. She is managed by Dr. Bowen, avionics systems technician in the [facility]. She has been on prednisone for greater than a year (15 mg daily). She has never had full control of her disease. From what she tells me she has been on other agents as well as including Lialda and also biologic agents likely Remicade, though I do not have confirmation of that. She is admitted on the 03 of June, it is now June 12. I was consulted yesterday for consideration of colonoscopy after Dr. Monsalve spoke with Dr. Bowen at [facility]. Competing etiologies as to the source of her symptoms of diarrhea have been suggested, however, unlikely that might be. She understands risks of bleeding, infection, and perforation related to colonoscopy and wished to proceed. FINDINGS: Typical ulcerative colitis was noted. It was moderately severe, extended from the rectum to the cecum. There was apparent sparing of the ileum, there was no full intubation of the ileum that was visualized and biopsies were taken of the ileum, cecum, and remaining colon and rectum. There was no sign of polyps, cancer, typical stigmata of C difficile (C difficile test negative already also) nor any sign of neoplasm or diverticular disease. Electronically Signed By: NILDA DONIS MD 06/13/20 1834 PATIENT NAME: LIDA GALAVIZ OPERATIVE REPORT DATE OF : 84 REPORT #: [id number] PHYSICIAN: NILDA DONIS MD PCP: LORRIE GARCIA PA-C REPORT IS CONFIDENTIAL AND NOT TO BE RELEASED WITHOUT AUTHORIZATION [facility] [address] [place] [id number] Signed DESCRIPTION OF PROCEDURE: The patient was placed in lateral decubitus position given intravenous sedation to the point of slurred speech and nystagmus. Digital rectal examination was normal. There was no sign of perianal abnormality to suggest Crohn disease. An Olympus video colonoscope was passed into the rectum, immediately noted was markedly inflammation of the rectum. The scope was manipulated throughout the colon ultimately intubating the cecum. The ileocecal valve was identified. Various maneuvers were made to intubate it fully, but this could not be fully accomplished. The orifice was opened somewhat allowing for insinuation of biopsy forceps into the ileum a few centimeters. Multiple biopsies were taken. The scope was withdrawn and biopsies then taken of the cecal mucosa, which clearly had inflammation and edema and minimal ulceration. Careful withdrawal of scope showed similar findings throughout. Biopsies were taken throughout including the right colon, left colon, sigmoid, and rectum. The scope was removed. The patient was taken to the recovery room in good condition. CONCLUDING DIAGNOSIS: Ulcerative colitis, moderately severe. PLAN: She is currently on hydrocortisone 100 mg IV q.8 hours, which is helpful to her symptoms in the past 24 hours, previously, she was on 50 mg. Oral antibiotic, Flagyl will be continued and transition ultimately to prednisone steroid would be a consideration. I do not have her full history as regards biologic agents used to control her problem, but I suspect they have been under utilized so far. The ultimate solution may ultimately require total proctocolectomy with ileoanal pull-through (J-pouch). She has had refractory disease for nearly 14 years for what I gather as well as extracolonic manifestations including arthralgias and so on. MD GUILHERME Nielsen/MODL /[id number] cc: Shannon Monsalve MD Electronically Signed By: NILDA DONIS MD 06/13/20 1834 PATIENT NAME: LIDA GALAVIZ OPERATIVE REPORT DATE OF : 84 REPORT #: [id number] PHYSICIAN: NILDA DONIS MD PCP: LORRIE GARCIA PA-C REPORT IS CONFIDENTIAL AND NOT TO BE RELEASED WITHOUT AUTHORIZATION [address] [address] Signed MD Adair Irizarry MD Copies: SHANNON MONSALVE, Osito DONIS,ADAIR MONSON MD ~ Electronically Signed By: NILDA DONIS MD 06/13/20 1834 PATIENT NAME: LIDA GALAVIZ OPERATIVE REPORT DATE OF : 84 REPORT #: [id number] PHYSICIAN: NILDA DONIS MD PCP: LORRIE GARCIA PA-C REPORT IS CONFIDENTIAL AND NOT TO BE RELEASED WITHOUT AUTHORIZATION
--- NOTE | 2020-06-13 18:37 | NUR ---
THIS RN TO ROOM TO CHECK ON PT. PT REPORTS 6/10 PAIN AND DENIES NEED FOR ADDITIONAL PAIN MEDICATION. PT TALKING WITH FAMILY ON PHONE. NO ADDITIONAL REQUESTS OR COMPLAINTS. CALL LIGHT WITHIN REACH. BED RAILS UP.
--- NOTE | 2020-06-13 20:26 | NUR ---
PATIENT JUST FINISHED EATING A BIG MEAL AND IS CURRENTLY TALKING ON THE PHONE AND HAS NO NEEDS AT THIS TIME INDEPENDENT IN THE ROOM. CALL LIGHT IN REACH.
--- NOTE | 2020-06-13 22:29 | NUR ---
VITALS AND I&OS DONE AND CHARTED. FRESH ICE WATER , JU AND CHIPS GIVEN PER PT REQUEST. BEDSIDE TABLE AND CALL LIGHT IN REACH.
--- NOTE | 2020-06-14 00:55 | NUR ---
PATIENT HAS BEEN AWAKE UP WALKING AFTER SHE HAD HER ENEMA EARLIER. 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 I WARMED UP SOME OF HER SOUP SHE HAD IN THE FRIDGE FOR HER AND GAVE HER SOME CRACKERS. PATIENT PLANS TO RETURN TO HER ROOM AND HAVE A SHOWER WHEN SHE IS DONE WALKING.
--- NOTE | 2020-06-14 02:54 | NUR ---
PATIENT RESTING QUIETLY SUPINE IN BED NOW AND RESPIRATIONS ARE REGULAR AND EVEN, EYES CLOSED, CALL LIGHT IN REACH.
--- NOTE | 2020-06-14 03:55 | NUR ---
PATIENT RESTING QUIETLY SUPINE, CALL LIGHT IN REACH RESPIRATIONS REGULAR AND EVEN, EYES CLOSED.
--- NOTE | 2020-06-14 06:03 | NUR ---
PATIENT AWAKE MOST OF THE NIGHT WALKING THE UNIT OR WATCHING TV, HAD SOME SLEEP THE LAST FEW HOURS, BUT JUST CALLED FOR 8/10 ABD PAIN. 500MG TYLENOL,20MG BENTYL, AND 5MG PO OXYCODONE GIVEN. PATIENT CONTINUESTO HAVE MULTIPLE FFOUL SMELLING LIQUID STOOLS AND PLENTY OF URINE, BUT IT LOOKS A LITTLE CONCENTRATED. PATIENT HAD HER FIRST RAWASA ENEMA LAST NIGHT., AND SEEMED TO TOLERATE IT WELL. PATIENT LOOKING FORWARD TO GOING HOME TODAY. SL STILL FLUSHES WELL AND PATIENT IS INDEPENDANT. NOTHING ELSE TO NOT AT THIS TIME.CALL LIGHT IS IN REACH AND PATIENT IS GOING TO TRY AND GO BACK TO SLEEP.
--- NOTE | 2020-06-14 07:03 | NUR ---
REPORT RECEIVED FROM MAGGIE ALVARADO. PT RESTING IN BED WITH EYES CLOSED. RESPIRATIONS EVEN AND UNALABORED. BED RAILS UP. CALL LIGHT WITHIN REACH. PT ALLOWED TO REST.
[2020-06-14] MEDS ORDERED: PANTOPRAZOLE SO40 MG PO (09:15)
[2020-06-14] MEDS ORDERED: MESALAMINE4 GM/60 ML PR (09:15)
[2020-06-14] MEDS ORDERED: PREDNISONE20 MG PO (09:16)
--- NOTE | 2020-06-14 09:27 | NUR ---
MORNING ASSESSMENT AND MEDICATIONS DUE. PT RESTING IN BED. PT STATES SHE IS TIRED AND WANTS TO "JUST SLEEP THIS MORNING." PT EPORTS 04/19 PAIN, HEAT PACK PROVIDED. PT UPDATED ON PLAN OF CARE AND DISCHRAGE. PT VERBALIZES UNDERSTANDING. ASSESSMENT DONE. LUNG SOUNDS CLEAR. BOWEL TONES ACTIVE. PT UP TO RESTROOM. HAS LOOSE, MUCOID BOWEL MOVEMENT. PT ENCOURAGED TO AMBULATE. PT UP TO AMBULATE IN BERNAL WITH STAND BY ASSIST FROM THIS RN X2 LAPS IN BERNAL. PT BACK TO ROOM. SUPPLIES FOR SHOWER SET UP. IV DC'S PER PROTOCOL FOR PT TO SHOWER. PT DENIES ADDITIONAL REQUESTS OR COMPLAINTS. PT DEMONSTRATES USE OF CALL LIGHT. CALL LIGHT WITHIN REACH.
--- NOTE | 2020-06-14 10:00 | NUR ---
Pt sitting in chair in hallway at second nurses station. States she was tired of her room. Plans on dc to home today. Denies needs will go home with boyfriend and son.
--- NOTE | 2020-06-14 11:32 | NUR ---
PT FINISHED WITH SHOWER AND READY FOR DISCHRAGE. PHARMACY CALLED. PHARMACIST STATES PT HAS SENT HIM AWAY 3 TIMES. PHARMACIST TO BEDSIDE AGAIN. PTS FATHER CALLED FOR RIDE HOME. PT DRESSES SELF, PT STEADY ON FEET WITH STAND BY ASSIST. VITALS TAKEN. DISCHARGE INSTRUCTIONS REVIEWED WITH PT. PT VERBALIZES UNDERSTANDING OF MEDICATIONS, DISCHARGE INSTRUCTIONS, AND FOLLOW UP APPOINTMENTS. PT STATES HER QUESTIONS HAVE BEEN ANSWERED. AWAITING THE ARRIVAL OF PTS FATHER FOR HER RIDE HOME. PT STATES SHE WILL CALL WHEN READY. NO ADDITIONAL NEEDS AT THIS TIME. CALL LIGHT WITHIN REACH.
--- NOTE | 2020-06-14 11:42 | NUR ---
PTS FAMILY ARRIVED. PT WHEELED TO FRONT OF HOSPITAL. NO ADDITIONAL REQUESTS OR CONCERNS. ALL BELONGINGS WITH PT.
--- NOTE | 2020-06-14 12:18 | NUR ---
CONNECTED WITH PT IN HALLWAY ON WAY OUT FOLLOWING DC. PT EXCITED AND READY, GAVE BLESSING
== END 2020-06-14 11:40 | disposition home or self-care (01) | DRG 386 ==
LOC: ED 16:04 → MS 21:05
PROVIDERS: Surgery; ADMIT Internal Medicine; ATTEND Internal Medicine
PROC: 30233N1 Transfusion of Nonautologous Red Blood Cells into Peripheral Vein, Percutaneous Approach (ICD-10-PCS; 2020-06-04)
PROC: 0UPDXHZ Removal of Contraceptive Device from Uterus and Cervix, External Approach (ICD-10-PCS; 2020-06-07)
PROC: 0DBN8ZX Excision of Sigmoid Colon, Via Natural or Artificial Opening Endoscopic, Diagnostic (ICD-10-PCS; 2020-06-12)
PROC: 0DBP8ZX Excision of Rectum, Via Natural or Artificial Opening Endoscopic, Diagnostic (ICD-10-PCS; 2020-06-12)
PROC: 0DBF8ZX Excision of Right Large Intestine, Via Natural or Artificial Opening Endoscopic, Diagnostic (ICD-10-PCS; 2020-06-12)
PROC: 0DBG8ZX Excision of Left Large Intestine, Via Natural or Artificial Opening Endoscopic, Diagnostic (ICD-10-PCS; principal; 2020-06-12 12:00)
DX: K51.00 Ulcerative (chronic) pancolitis without complications (principal); B37.81 Candidal esophagitis; Z20.828 Contact with and (suspected) exposure to other viral communicable diseases; M07.69 Enteropathic arthropathies, multiple sites; D72.825 Bandemia; E87.6 Hypokalemia; E83.42 Hypomagnesemia; D50.9 Iron deficiency anemia, unspecified; T83.32XA Displacement of intrauterine contraceptive device, initial encounter; K29.70 Gastritis, unspecified, without bleeding; T39.8X5A Adverse effect of other nonopioid analgesics and antipyretics, not elsewhere classified, initial encounter; Y92.239 Unspecified place in hospital as the place of occurrence of the external cause; Z88.2 Allergy status to sulfonamides; Z87.891 Personal history of nicotine dependence; Z79.1 Long term (current) use of non-steroidal anti-inflammatories (NSAID); Z79.52 Long term (current) use of systemic steroids
CPT/HCPCS: 36415; 36430; 71045; 74018; 74177; 80048; 80053; 81001; 82607; 82728; 82746; 83540; 83605; 83735; 84466; 84703; 85025; 85045; 86140; 86850; 86900; 86901; 86920; 87040; 87045; 87046; 87077; 87177; 87209; 87493; 96361; 99153; 99285-25; C9803; G0500; J0744; J1170; J1650; J1720; J1885; J2250; J3010; J3475; J7030; J7121; J7512; P9016; Q9967

== ENCOUNTER 2020-08-18 21:05 | Emergency (ER) | payer OTHER ==
[~2020-08-18] VITALS: Ht 160 cm; Wt 88.0 kg
[~2020-08-18 21:05] MED LIST changes: +ADVIL200 MG PO
--- OUTSIDE RECORDS SUMMARY | 2020-08-18 21:08 | XMS ---
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 EFalguni VISIT COUNT (12 MO.) 4 [facility] TOTAL 4 NOTE: Visits indicate total known visits. ED/UCC VISIT TRACKING (12 MO.) 08/18/2020 21:06 [facility] [place] TYPE: Emergency COMPLAINT: - WEAKNESS 06/03/2020 16:04 [facility] [place] TYPE: Emergency COMPLAINT: - PAIN, FATIGUE 05/23/2020 21:31 [facility] [place] TYPE: Emergency COMPLAINT: - FATIGUE/WEAKNESS DIAGNOSES: - Elevated white blood cell count, unspecified - Anemia, unspecified - Ulcerative colitis, unspecified, without complications - Allergy status to sulfonamides - Headache - Diarrhea, unspecified 01/12/2020 13:27 [facility] [place] TYPE: Emergency COMPLAINT: - WEAK, TIRED, COLD DIAGNOSES: - Abnormal uterine and vaginal bleeding, unspecified - Anemia, unspecified - Allergy status to sulfonamides - Weakness INPATIENT VISIT TRACKING (12 MO.) 06/03/2020 21:05 [facility] [place] TYPE: Medical Surgical COMPLAINT: - COLITIS DIAGNOSES: - Allergy status to sulfonamides - Candidal esophagitis - snf (current) use of non-steroidal anti-inflammatories (NSAID) - snf (current) use of non-steroidal anti-inflammatories (NSAID) - Personal history of nicotine dependence - snf (current) use of systemic steroids - Unspecified place in hospital as the place of occurrence of the external cause - Hypokalemia - Gastritis, unspecified, without bleeding - Iron deficiency anemia, unspecified - Hypokalemia - Contact with and (suspected) exposure to other viral communicable diseases - Enteropathic arthropathies, multiple sites - Ulcerative (chronic) pancolitis without complications - Noninfective gastroenteritis and colitis, unspecified - Bandemia - Displacement of intrauterine contraceptive device, initial encounter - Contact with and (suspected) exposure to other viral communicable diseases - Allergy status to sulfonamides - Adverse effect of other nonopioid analgesics and antipyretics, not elsewhere classified, initial encounter - Hypomagnesemia - Enteropathic arthropathies, multiple sites - Adverse effect of other nonopioid analgesics and antipyretics, not elsewhere classified, initial encounter - Personal history of nicotine dependence - Displacement of intrauterine contraceptive device, initial encounter - Bandemia - Candidal esophagitis - Unspecified place in hospital as the place of occurrence of the external cause - Iron deficiency anemia, unspecified - Gastritis, unspecified, without bleeding - Ulcerative (chronic) pancolitis without complications - Hypomagnesemia - 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
[2020-08-18] MEDS ORDERED: HUMIRA10 MG/0.2 SQ (21:27)
== END 2020-08-18 22:15 | disposition home or self-care (01) ==
LOC: ED 21:05
DX: R53.1 Weakness (principal); K51.90 Ulcerative colitis, unspecified, without complications; Z87.891 Personal history of nicotine dependence; Z88.2 Allergy status to sulfonamides; Z79.899 Other long term (current) drug therapy
CPT/HCPCS: 80053; 81001; 83735; 84703; 85025; 99284

== ENCOUNTER 2020-10-22 14:43 | Emergency (ER) | payer OTHER ==
[~2020-10-22] VITALS: Ht 160 cm; Wt 88.0 kg
[~2020-10-22 14:43] MED LIST changes: +HUMIRA10 MG/0.2 SQ
--- OUTSIDE RECORDS SUMMARY | 2020-10-22 14:46 | XMS ---
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 EFalguni VISIT COUNT (12 MO.) 5 RAGH[facility] Galvan TOTAL 5 NOTE: Visits indicate total known visits. ED/UCC VISIT TRACKING (12 MO.) 10/22/2020 14:44 [facility] [place] TYPE: Emergency COMPLAINT: - R KNEE SWOLLEN, PAINFUL 08/18/2020 21:06 [facility] [place] TYPE: Emergency COMPLAINT: - WEAKNESS DIAGNOSES: - Personal history of nicotine dependence - Allergy status to sulfonamides - Other [facility] (current) drug therapy - Weakness - Ulcerative colitis, unspecified, without complications 06/03/2020 16:04 [facility] [place] TYPE: Emergency COMPLAINT: - PAIN, FATIGUE 05/23/2020 21:[address] [facility] [place] [facility]: Emergency COMPLAINT: - FATIGUE/WEAKNESS DIAGNOSES: - Elevated white blood cell count, unspecified - Anemia, unspecified - Ulcerative colitis, unspecified, without complications - Allergy status to sulfonamides - Headache - Diarrhea, unspecified 01/12/2020 13:27 [facility] [place] [facility] [place] TYPE: Emergency COMPLAINT: - WEAK, TIRED, COLD DIAGNOSES: - Abnormal uterine and vaginal bleeding, unspecified - Anemia, unspecified - Allergy status to sulfonamides - Weakness INPATIENT VISIT TRACKING (12 MO.) 06/03/2020 21:[address] 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
[2020-10-22] MEDS ORDERED: PREDNISONE10 MG PO (14:59)
[2020-10-22] MEDS ORDERED: FERROUS SULFAT325 MG PO (14:59)
[2020-10-22] MEDS ORDERED: HUMIRA PEN40 MG/0.4 (15:00)
[2020-10-22] MEDS ORDERED: PRENATAL VITAM1 EAC5 PO (15:01)
== END 2020-10-22 15:30 | disposition home or self-care (01) ==
LOC: ED 14:43
DX: M25.461 Effusion, right knee (principal); Z87.891 Personal history of nicotine dependence; Z88.2 Allergy status to sulfonamides; Z79.899 Other long term (current) drug therapy; Z79.52 Long term (current) use of systemic steroids
CPT/HCPCS: 20610; 99283-25

== ENCOUNTER 2020-11-02 17:37 | Emergency (ER) | payer OTHER ==
[~2020-11-02] VITALS: Ht 160 cm; Wt 88.0 kg
[~2020-11-02 17:37] MED LIST changes: +HUMIRA PEN40 MG/0.4; +PRENATAL VITAM1 EAC5 PO
--- OUTSIDE RECORDS SUMMARY | 2020-11-02 17:40 | XMS ---
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 Care History Medical/Surgical 10/23/2020 [facility] - PATIENT WAS LAST SEEN BY PCP DEXTER MONTANEZ 10/08/20- FOLLOW UP APT HAS BEEN SCHEDULED 10/29/2020. E.D. VISIT COUNT (12 MO.) [address] [facility] TOTAL 6 NOTE: Visits indicate total known visits. 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 - Personal history of nicotine dependence - [facility] (current) use of systemic steroids - Allergy status to sulfonamides 08/18/2020 21:06 [facility] [place] TYPE: Emergency COMPLAINT: - WEAKNESS DIAGNOSES: - Personal history of nicotine dependence - Allergy status to sulfonamides - Other senior care (current) drug therapy - Allergy status to sulfonamides - Weakness - Ulcerative colitis, unspecified, without [...] status to sulfonamides - Candidal esophagitis - 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
[2020-11-02] MEDS ORDERED: HYDROCODON-ACE1 EA11 PO (19:10)
== END 2020-11-02 21:00 | disposition home or self-care (01) ==
LOC: ED 17:37
DX: M25.461 Effusion, right knee (principal); Z87.891 Personal history of nicotine dependence; Z88.2 Allergy status to sulfonamides; Z79.899 Other long term (current) drug therapy
CPT/HCPCS: 20610; 73560; 82945; 85810; 86431; 89051; 89060; 99283-25; J1170; J3301

== ENCOUNTER 2021-04-24 19:29 | Emergency (ER) | payer OTHER ==
[~2021-04-24] VITALS: Ht 160 cm; Wt 89.8 kg
[~2021-04-24 19:29] MED LIST changes: +HYDROCODON-ACE1 EA11 PO
[2021-04-24] MEDS ORDERED: PREDNISONE10 MG PO (20:16)
[2021-04-25] MEDS ORDERED: PREDNISONE20 MG PO (00:09)
[2021-04-25] MEDS ORDERED: HYDROCODON-ACE1 EA10 PO (00:09)
[2021-04-25] MEDS ORDERED: LOMOTIL TABLET1 EACH PO (00:09)
== END 2021-04-25 00:18 | disposition home or self-care (01) ==
LOC: ED 19:29
DX: K51.90 Ulcerative colitis, unspecified, without complications (principal); Z87.891 Personal history of nicotine dependence; Z88.2 Allergy status to sulfonamides; Z79.899 Other long term (current) drug therapy; Z79.52 Long term (current) use of systemic steroids
CPT/HCPCS: 80053; 81001; 83605; 83735; 85025; 96374; 96375; 99284-25; J1170; J1885; J2405; J2930; J7030

== ENCOUNTER 2021-05-19 22:42 | Emergency (ER) | payer OTHER ==
[~2021-05-19] VITALS: Ht 160 cm; Wt 89.8 kg
[~2021-05-19 22:42] MED LIST changes: +HYDROCODON-ACE1 EA10 PO; +LOMOTIL TABLET1 EACH PO
--- OUTSIDE RECORDS SUMMARY | 2021-05-19 22:44 | XMS ---
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 Care History Medical/Surgical 10/23/2020 [facility] - PATIENT WAS LAST SEEN BY PCP DEXTER MONTANEZ 10/08/20- FOLLOW UP APT HAS BEEN SCHEDULED 10/29/2020. E.D. VISIT COUNT (12 MO.) [address] [place] [address] TOTAL 7 NOTE: Visits indicate total known visits. ED/UCC VISIT TRACKING (12 MO.) 05/19/2021 22:42 [facility] [place] TYPE: Emergency COMPLAINT: - RT KNEE PROBLEM 04/24/2021 19:31 [facility] [place] TYPE: Emergency COMPLAINT: - FREQUENT URINATION,LETHARGIC DIAGNOSES: - Other jail (current) drug therapy - Allergy status to sulfonamides - Headache, unspecified - senior living (current) use of systemic steroids - Personal history of nicotine dependence - Ulcerative colitis, unspecified, without complications 11/02/2020 17:37 [facility] [place] TYPE: Emergency COMPLAINT: - RIGHT KNEE PAIN DIAGNOSES: - Allergy status to sulfonamides - Effusion, right knee - Pain in right knee - 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 - Personal history of nicotine dependence 10/22/2020 14:44 [facility] [place] TYPE: Emergency COMPLAINT: - R KNEE SWOLLEN, PAINFUL DIAGNOSES: - Effusion, right knee - Other jail (current) drug therapy - Personal history of nicotine dependence - senior living (current) use of systemic steroids - Allergy status to sulfonamides 08/18/2020 21:06 [facility] [place] TYPE: Emergency COMPLAINT: - WEAKNESS DIAGNOSES: - Personal history of nicotine dependence - Allergy status to sulfonamides - Other jail (current) drug therapy - Allergy status to sulfonamides - Weakness - Ulcerative colitis, unspecified, without complications 06/03/2020 16:04 [facility] [place]: Emergency COMPLAINT: - PAIN, FATIGUE 05/23/2020 21:31 [facility] [place] TYPE: Emergency COMPLAINT: - FATIGUE/WEAKNESS DIAGNOSES: - Elevated white blood cell count, unspecified - Anemia, unspecified - Ulcerative colitis, unspecified, without complications - Allergy status to sulfonamides - Headache - Diarrhea, unspecified INPATIENT VISIT TRACKING (12 MO.) 06/03/2020 21:05 [facility] [place] TYPE: Medical Surgical COMPLAINT: - COLITIS DIAGNOSES: - Allergy status to sulfonamides - Candidal esophagitis - 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
== END 2021-05-20 01:00 | disposition home or self-care (01) ==
LOC: ED 22:42
DX: M25.461 Effusion, right knee (principal); Z87.891 Personal history of nicotine dependence; Z88.2 Allergy status to sulfonamides; Z79.899 Other long term (current) drug therapy; Z79.52 Long term (current) use of systemic steroids
CPT/HCPCS: 20610; 73560; 99283-25

== ENCOUNTER 2021-10-16 07:55 | Day surgery (SDC) | payer OTHER ==
[~2021-10-16] VITALS: Ht 165.1 cm; Wt 97.7 kg
--- NOTE | 2021-10-16 13:07 | NUR ---
10/16/21 1307 Nathalie Tolbert 1302- PT ARRIVES TO PACU NONAROUSABLE TO NOXIOUS STIMULI WITH AN OPA IN PLACE. PT ALSO REQUIRING A JAW THRUST TO MAINTAIN PATENT AIRWAY. RESP EVEN AND UNLABORED. OXYGEN SAT HIGH 90'S TO 100% ON 10L VIA MASK. 1307- JAW LIFT STARTED INSTEAD OF JAW THRUST THIS MAINTAINS A PATENT AIRWAY.
[2021-10-16] MEDS ORDERED: PERCOCET 5-3251 EACH PO (14:39)
[2021-10-16] MEDS ORDERED: IBUPROFEN800 MG PO (14:39)
--- NOTE | 2021-10-16 15:09 | NUR ---
1505: VS CHECKED. PATIENT SLEEPING. CALL LIGHT WITHIN REACH.
--- NOTE | 2021-10-16 16:08 | NUR ---
PATIENT CONTINUES TO BE DROWSY. AWAKENS TO VOICE, ANSWERS QUESTIONS THEN QUICKLY FALLS BACK TO SLEEP. UNABLE TO STAY AWAKE. VS CHECKED. O2 TURNED OFF. PATIENT ON ROOM AIR. CALL LIGHT WITHIN REACH.
--- NOTE | 2021-10-16 16:17 | NUR ---
1612: PATIENT'S O2 SATS DROPPED TO 89%. O2 TURNED BACK ON AT 2 L/MIN. PATIENT STILL VERY DROWSY. CALL LIGHT WITHIN REACH.
--- NOTE | 2021-10-16 17:10 | NUR ---
1654 IN TO CHECK PT AWOKE EASILY. GOT SELF REORIENTED TO PLACE AND TIME. HAS BEEN SLEEPING DEEPLY. READY TO STAND AND GET CATHETER OUT. THIS DONE. DENIES DIZZINESS. TO BED AND CATHER REMOVED. AMB TO BR. DID WELL. ABLE TO VOID 300MLS BRIGHT YELLOW URINE. BACK TO ROOM. EATING SANDWICH. RATES PAIN AT 6/10. PAIN MED GIVEN.
--- NOTE | 2021-10-17 12:07 | OR ---
[facility] [address] [place], [place] [address] Signed DATE OF OPERATION: 10/16/2021 SURGEON: Kvng Guerra MD PREOPERATIVE DIAGNOSES: 1. Menorrhagia. 2. Uterine fibroids. 3. Chronic blood loss anemia. 4. Endometrial hyperplasia without atypia 5. Dysmenorrhea. POSTOPERATIVE DIAGNOSES: 1. Menorrhagia. 2. Uterine fibroids. 3. Chronic blood loss anemia. 4. Endometrial hyperplasia without atypia 5. Dysmenorrhea. PROCEDURE: Total laparoscopic hysterectomy with right salpingectomy and cystoscopy. VEHICLE RETURN ASSOCIATE: Dr. Aviles. ANESTHESIA: General. ESTIMATED BLOOD LOSS: 100 mL. SPECIMENS: Fibroid uterus and right fallopian tube. DRAINS: Rosas to bladder. PACKING: None. FINDINGS: Electronically Signed By: KVNG GUERRA MD 10/17/21 1207 PATIENT NAME: LIDA GALAVIZ OPERATIVE REPORT DATE OF : 84 REPORT #: [id number] PHYSICIAN: KVNG GUERRA MD PCP: NO PRIMARY CARE PHYSICIAN REPORT IS CONFIDENTIAL AND NOT TO BE RELEASED WITHOUT AUTHORIZATION [facility] [address] [place] [place] [address] Signed Cervix, thick, closed, and normal in size. Uterus was enlarged with a pedunculated approximately 4 cm fibroid in the anterior lower segment and approximately 4 cm subserosal posterior lower segment fibroid. The left tube was absent from previous salpingectomy. The left ovary was normal in size with 2 x 3 cm simple cyst present, no adhesions. Right tube was normal in length and normal-appearing fimbriated end and no adhesions. Right ovary normal in size and shape, again with approximately 2 x 3 cm simple cyst present, no adhesions. Rest of the pelvis was free of any masses or adhesions. DESCRIPTION OF PROCEDURE: The patient was brought to the operating room, placed in supine position. After adequate general anesthesia was obtained, she was placed in dorsal lithotomy position, prepped and draped in usual sterile fashion. Rosas catheter was placed in the bladder and a weighted speculum placed in the vagina. The cervix was grasped with an Allis clamp and the cervix serially dilated. The VCare uterine manipulator was then inserted into the cervix to the fundus and the balloon filled with water. Weighted speculum and Allis clamp were removed and the cervical cap slid up the uterine manipulator and around the cervix. The vaginal cup was slid up and attached to hold the cervical cap in place. Attention was then drawn to the abdomen. A small infraumbilical skin incision was made with a scalpel after injecting the area with 0.25% Marcaine with epinephrine. The subcutaneous tissue was dissected with Metzenbaum scissors. The fascia identified, grasped, hemostats elevated, nicked with Metzenbaum scissors and extended in transverse fashion using Metzenbaum scissors. Retention stitches of 0-Vicryl suture placed above and below the incision. Finger dissection was used to open the abdominal musculature and peritoneum and an S retractor inserted into the incision. The Star cannula and sleeve then entered the abdomen under direct visualization. The trocar was removed. The lower balloon on the sleeve was inflated with air and then the upper sleeve slid down and locked in place. The retention stitches were attached to the upper sleeve. The laparoscope then entered the abdomen under direct visualization. Carbon dioxide was used as the distending medium. The above findings were noted. A small skin incision was made in the left abdopmen, just below the level of the umbilicus, after transilluminating the abdominal wall to avoid any vessels and injectiong the area with 0.25% Marcaine. A 5 mm bladed trocar and sleeve was then inserted into the abdomen u nder direct visualization. The trocar was removed and a blunt grasper inserted. The same procedure was carried out on the right, with a Verres needle with mesh sleeve inserted and the Verres needle then removed. An expandable trocar and sleeve was then inserted through the mesh sleeve under direct visualization. The trocar was then removed abnd a blunt grasper inserted. The LigaSure bipolar [place] forceps were used for the dissection. The right fallopian tube was cauterized along the length of the mesosalpinx Electronically Signed By: KVNG GUERRA MD 10/17/21 1207 PATIENT NAME: LIDA GALAVIZ OPERATIVE REPORT DATE OF : 84 REPORT #: [id number] PHYSICIAN: KVNG GUERRA MD PCP: NO PRIMARY CARE PHYSICIAN REPORT IS CONFIDENTIAL AND NOT TO BE RELEASED WITHOUT AUTHORIZATION [address] [address] Signed and then the proximal portion of the tube cauterized and transected, and the tube brought out through the right port. The utero-ovarian ligaments were cauterized in several places and cut on both sides. The left round ligament was then cauterized in several places and cut. The upper pedicle cauterized and cut. The anterior and posterior leaves of the broad ligament individually , cauterized and cut. This was done close to the uterus and down towards the cervical cap and once reaching the cervical cap extending to the midline. The uterine vessels were then exposed, these were cauterized in several places and cut the tissue. The paracervical tissue was cauterized and cut. The anterior peritoneum gently lifted up to help and elevate the bladder and the tissue inside the cervical cap cauterized and cut down to the level of the vaginal wall. On the right side again the round ligament was cauterized in several places and cut. The upper pedicle was cauterized in several places and cut. The anterior and posterior leaves of the broad ligament were individually cauterized and cut down the length of the broad ligament again close to the uterus and towards the cervical cap and extending to the midline connecting with the previous dissection. The bladder flap was then gently elevated further to keep the bladder away from the area of dissection. Uterine vessels on this side were cauterized in several places and cut at the level of the cervical cap and the paracervical tissue over the cervical cap was cauterized and cut, so that down to the vaginal wall. The Sonicision was then brought into the operating field and the vagina opened in the groove of the cervical cap starting posterior to anterior on the left side and then posterior to anterior on the right side. This removed the uterus and cervix from the vaginal wall. The VCare uterine manipulator was carefully removed. Weighted speculum placed in the vagina and the uterus seen was noted in the cuff opening, it was grasped with an Allis clamp and ring forceps and gently removed through the opening. A sponge filled glove was then put into the vaginal opening, so that the abdomen could be re-insufflated. Abdomen was re-insufflated. The entire pelvis was irrigated, suctioned, and examined, any bleeding spots cauterized with the Bovie. The vaginal cuff was then closed using the Endo Stitch with barbed delayed absorbable suture. This was done from posterior to anterior, starting at the right uterosacral ligament with the first bite in the right uterosacral ligament and passing the barbed suture through the loop at the end of the suture to hold the suture in place. The anterior vaginal wall was then stitched with endo-stitch combining the anterior and posterior edges. This was continued across from posterior to anterior in the posterior cuff and then posterior to anterior in the anterior cuff and extending across to the left uterosacral ligament. Upon reaching the left uterosacral ligament, the stitch was taken back more superficially in the combined cuff to the midline, where the suture was cut with laparoscopic scissors. The entire pelvis was again irrigated, suctioned, and small superficial bleeding area cauterized with Ninfa forceps. When good hemostasis was obtained, there was slight rawness to the area, so the entire area of dissection was sprayed with Tisseel and good hemostasis Electronically Signed By: KVNG GUERRA MD 10/17/21 1207 PATIENT NAME: LIDA GALAVIZ OPERATIVE REPORT DATE OF : 84 REPORT #: [id number] PHYSICIAN: KVNG GUERRA MD PCP: NO PRIMARY CARE PHYSICIAN REPORT IS CONFIDENTIAL AND NOT TO BE RELEASED WITHOUT AUTHORIZATION [facility] [address] [place], [place] [address] Signed was noted. At this point, the gas was allowed to escape and the infraumbilical sleeve were removed. There was some bleeding after removal seemed to be in the abdominal musculature, so hemostats were used to identify the fascia and the edges were lifted up and the muscle edges seemed to be bleeding were cauterized. The area was irrigated, suctioned, and any bleeding spots in the incision were cauterized. When good hemostasis was noted, the fascia was closed using a running stitch of 0-Vicryl suture with two retention stitches tied together for further support. There was small amount of bleeding in the subcuticular fat, this was cauterized with the Bovie. When good hemostasis was obtained, the laparoscope was placed through the right lateral port and inside of the infraumbilical incision observed and noted to have good hemostasis, so all the gas was allowed to escape and the two lateral ports were removed. The three skin incisions then closed using subcuticular stitches of 4-0 Vicryl suture. The sponge filled glove was removed. Rosas catheter removed and cystoscopy performed. A 70-degree cystoscope was placed in the urethra and entered the bladder under direct visualization. Sterile water was used as distending medium. The bladder was carefully inspected the dome, both sides. The anterior and posterior leaves were examined. No stitches, no puckering, and no defects were noted. Both ureteral orifices were seen. Both had good jets of urine. At this point, the bladder was drained and the cystoscope removed. Rosas catheter placed back in the bladder. The patient tolerated the procedure well and went to the recovery room in good condition. The sponge, needle, and instrument count correct at the end of the procedure. Uterus and fallopian tube were sent to Pathology for identification. MD TUAN Stevenson/MODL /[id number] Copies: ~ Electronically Signed By: KVNG GUERRA MD 10/17/21 1207 PATIENT NAME: LIDA GALAVIZ OPERATIVE REPORT DATE OF : 84 REPORT #: [id number] PHYSICIAN: KVNG GUERRA MD PCP: NO PRIMARY CARE PHYSICIAN REPORT IS CONFIDENTIAL AND NOT TO BE RELEASED WITHOUT AUTHORIZATION
--- NOTE | 2021-10-20 09:38 | PATH ---
[facility] [address] [place], [place] [address] Signed SPECIMEN(S): A UTERUS, CERVIX, TUBES AND FIBROID SPECIMEN SOURCE: A. UTERUS, CERVIX, TUBES AND FIBROID CLINICAL HISTORY: Heavy bleeding; leiomyoma; chronic anemia FINAL PATHOLOGIC DIAGNOSIS: Uterus, cervix, right fallopian tube and fibroid, hysterectomy and unilateral salpingectomy: - Cervix: No histopathologic abnormality. - Endometrium: Proliferative endometrium. - Myometrium: Leiomyomas (3 cm in greatest dimension), adenomyosis. - Loose fragment of leiomyoma (4.1 cm in greatest dimension). - No evidence of malignancy. NAL:cml:C2NR MICROSCOPIC EXAMINATION: Histologic sections of all submitted blocks are examined by light microscopy. These findings, together with the gross examination, support the pathologic diagnosis. GROSS DESCRIPTION: The specimen, labeled "Ria Hastings," and designated on the requisition "cervix, uterus, fibroid, and right fallopian tube, per Dr. Guerra only right fallopian tube was removed," is received in formalin and consists of a 213 gram uterus and cervix with a single fallopian tube. The uterus is 5.6 x 7.1 x 10.7 cm (cornu-cornu x anterior-posterior x fundus-ectocervix). The serosal surface is pink and smooth with multiple subserosal nodules that range in size from 0.3 cm in greatest dimension up to 3.7 x 3.0 x 2.6 cm. These nodules have a white whorled cut surface. The ectocervical mucosa is pale pink and smooth. Serial sectioning of the cervix fails to demonstrate any gross abnormalities. The triangular endometrial cavity is lined by a pink smooth and focally congested endometrium that has an average thickness of 0.6 cm. Sectioning through the uterus reveals a pink moderately trabeculated myometrium with multiple white padilla well circumscribed intramural nodules that measure up to 3.0 cm in greatest dimension and have a white PATIENT NAME: RIA HASTINGS PATHOLOGY DATE OF : 84 REPORT #: [id number] PHYSICIAN: JUAN PATHOLOGY PCP: NO PRIMARY CARE PHYSICIAN REPORT IS CONFIDENTIAL AND NOT TO BE RELEASED WITHOUT AUTHORIZATION [facility] [address] [place], [place] [address] Signed whorled cut surface. The fallopian tube is 8.7 x 1.4 cm with delicate fimbriae. The serosa is pink and smooth. Cut sections reveal a pinpoint lumen. Separate within the container is a 20 g firm rubbery nodule that is 4.1 x 3.2 x 2.9 cm. The external surface is pink, focally congested, and smooth. The specimen is inked and sectioned revealing a one pink-white multilobulated cut surface. Glass Engraver sections are submitted in seven cassettes. Cassette summary: (A1-A2) fallopian tube (A3) nodule separate within the container (A4) cervix (A5) uterine wall (A6-A7) intramural nodule. FB (under the direct supervision of a pathologist) The Gross Description was prepared using a voice recognition system. The report was reviewed for accuracy; however, sound-alike word errors, addition and/or deletions may occur. If there is any question about this report, please contact Client Services. PERFORMING LABORATORY: The technical component was performed by [employer], [address] [place] [id number] (Dump Motor Operator: Loraine Chiu MD; CLIA# [id number]). Professional interpretation was performed by [facility], [facility], [address] [place] [address] (CLIA# [id number]). Diagnostician: Kristy Hagen MD Pathologist Electronically Signed 10/20/2021 Copies: ~ PATIENT NAME: RIA HASTINGS PATHOLOGY DATE OF : 84 REPORT #: [id number] PHYSICIAN: JUAN PATHOLOGY PCP: NO PRIMARY CARE PHYSICIAN REPORT IS CONFIDENTIAL AND NOT TO BE RELEASED WITHOUT AUTHORIZATION
== END 2021-10-16 18:00 | disposition home or self-care (01) ==
LOC: OPS 07:55 → DS 07:55 → OPS 09:45
PROVIDERS: ATTEND General Practice
PROC: 0UT94ZZ Resection of Uterus, Percutaneous Endoscopic Approach (ICD-10-PCS; principal; 2021-10-16 10:15)
PROC: 0UT54ZZ Resection of Right Fallopian Tube, Percutaneous Endoscopic Approach (ICD-10-PCS; 2021-10-16 10:15)
DX: D25.9 Leiomyoma of uterus, unspecified (principal); N92.0 Excessive and frequent menstruation with regular cycle; N80.0 Endometriosis of uterus; D50.0 Iron deficiency anemia secondary to blood loss (chronic); N94.6 Dysmenorrhea, unspecified; Z88.1 Allergy status to other antibiotic agents
CPT/HCPCS: 00840; A9270; J0131; J0690; J1100; J1644; J1720; J1885; J2001; J2250; J2405; J2704; J3010; J7121

== ENCOUNTER 2023-05-25 17:36 | Emergency (ER) | payer OTHER ==
[~2023-05-25] VITALS: Ht 165.1 cm; Wt 94.0 kg
[~2023-05-25 17:36] MED LIST changes: +IBUPROFEN800 MG PO
[2023-05-25 19:14] LABS: MCH 23.9 (27-36); MCHC 30.6 g/dl (30-36)
[2023-05-25 19:17] LABS: BASOPHILS 0.7 % (0-2); EOSINOPHILS 0.8 % (0-6); HEMATOCRIT 34.6 % (35.0-50.0); HEMOGLOBIN 10.6 g/dL (12.0-18.0); LYMPHOCYTES 11.1 % (24-44); MONOCYTES 17.4 % (0-12); PLATELET COUNT 343 K/uL (140-440); RBC 4.44 M/ul (4.3-5.7); RDW 15.9 (10.5-15.0)
[2023-05-25 19:28] LABS: ALBUMIN 2.9 g/dL (3.4-5.0); ALBUMIN/GLOBULIN RATIO 0.63 (1.1-2.4); ANION GAP 8.2 (7-21); BILIRUBIN, TOTAL 0.2 ng/dL (0.2-1.0); BUN/CREATININE RATIO 19.17 (6.0-28.6); CALCIUM 8.8 mg/dL (8.5-10.1); CREATININE, SERUM 0.73 mg/dL (0.55-1.02); MAGNESIUM 1.7 mg/dL (1.8-2.4); POTASSIUM 4.2 mmol/L (3.5-5.1); PROTEIN, TOTAL 7.5 g/dL (6.4-8.2)
[2023-05-25 19:45] LABS: INFLUENZA B NAA NEGATIVE (NEGATIVE); RESPIRATORY SYNCYTIAL VIR NAA NEGATIVE (NEGATIVE)
[2023-05-25] MEDS ORDERED: PAXLOVID 300-11 EACH PO (20:23)
[2023-05-25 20:52] VITALS: BP 138/86
== END 2023-05-25 20:53 | disposition home or self-care (01) ==
LOC: ED 17:36
PROVIDERS: Internal Medicine
DX: U07.1 COVID-19 (principal); E86.0 Dehydration; Z28.310 Unvaccinated for COVID-19; Z87.891 Personal history of nicotine dependence; Z88.2 Allergy status to sulfonamides; Z79.899 Other long term (current) drug therapy
CPT/HCPCS: 36415; 71045; 80053; 83735; 85025; 87502; A9270; J1885; J7121; U0002

== ENCOUNTER 2024-10-01 19:22 | Emergency (ER) | payer OTHER ==
[~2024-10-01] VITALS: Ht 165.1 cm; Wt 97.6 kg
[~2024-10-01 19:22] MED LIST changes: +COLACE100 MG PO; +FERROUS SULFAT325 M1 PO; +PAXLOVID 300-11 EACH PO; +VITAMIN C500 M4 PO
[2024-10-01] MEDS ORDERED: LACTATED RINGER'S 1,000 ML IV ONE ×2 (19:45→22:00)
[2024-10-01] MEDS ORDERED: FAMOTIDINE 20 MG/ 2 ML VIAL IV ONE (19:45)
[2024-10-01] MEDS ORDERED: ACETAMINOPHEN 500 MG TAB PO ONE (19:45)
[2024-10-01] MEDS ORDERED: methylPREDNISolone SOD SUCC 125 MG/2 ML VIAL IV ONE (19:45)
[2024-10-01 20:02] LABS: ALBUMIN 2.7 g/dL (3.4-5.0); ALBUMIN/GLOBULIN RATIO 0.63 (1.1-2.4); BILIRUBIN, TOTAL 0.4 ng/dL (0.2-1.0); BUN/CREATININE RATIO 17.46 (6.0-28.6); CALCIUM 8.5 mg/dL (8.5-10.1); CREATININE, SERUM 0.63 mg/dL (0.55-1.02)
[2024-10-01 20:30] LABS: BILIRUBIN, URINE NEGATIVE (negative); BLOOD/HGB, URINE TRACE-I (Negative); KETONE, URINE SMALL (Negative); LEUK ESTERASE, URINE NEGATIVE (negative); NITRITE, URINE NEGATIVE (negative); PH, URINE 7.5 (5-7)
[2024-10-01] MEDS ORDERED: CEFTRIAXONE/SODIUM CHLORIDE 2 GM/100 ML PIGGYBACK IV ONE (20:30)
[2024-10-01 20:33] LABS: HEMATOCRIT 38.5 % (35.0-50.0); HEMOGLOBIN 12.5 g/dL (12.0-18.0); MCH 26.9 (27-36); MCHC 32.4 g/dl (30-36); MCV 82.9 fl (81-99); PLATELET COUNT 296 K/uL (140-440); RBC 4.65 M/ul (4.3-5.7); RDW 17.2 (10.5-15.0)
[2024-10-01 20:34] LABS: INFLUENZA B NAA NEGATIVE (NEGATIVE); RESPIRATORY SYNCYTIAL VIR NAA NEGATIVE (NEGATIVE)
[2024-10-01 20:44] LABS: AMPHETAMINES, URINE POSITIVE (NEGATIVE); BARBITURATES, URINE NEGATIVE (NEGATIVE); BENZODIAZEPINE, URINE NEGATIVE (NEGATIVE); BUPRENORPHINE, URINE NEGATIVE (NEGATIVE); CANNABINOID, URINE POSITIVE (NEGATIVE); COCAINE, URINE NEGATIVE (NEGATIVE); ECSTASY, URINE NEGATIVE (NEGATIVE); FENTANYL, URINE NEGATIVE (NEGATIVE); METHADONE, URINE NEGATIVE (NEGATIVE); OPIATES, URINE NEGATIVE (NEGATIVE); OXYCODONE, URINE NEGATIVE (NEGATIVE); PHENCYCLIDINE, URINE NEGATIVE (NEGATIVE)
[2024-10-01 20:51] LABS: EOSINOPHILS, MANUAL DIFF 1; LYMPHOCYTES, MANUAL DIFF 9; MONOCYTES, MANUAL DIFF 16; NEUTROPHILS, MANUAL DIFF 74
[2024-10-01 20:54] LABS: BACTERIA, URINE RARE /hpf (negative); CASTS, URINE NONE SEEN \\lpf; COLLECTION TYPE, URINE CLEAN CATCH; CRYSTALS, URINE NONE SEEN (0-1+); EPITHELIAL CELLS, URINE SQUAMOUS 2+ /lpf (0-1+); REFLEX CULTURE, URINE No (No)
[2024-10-01] MEDS ORDERED: POTASSIUM CHLORIDE 10 MEQ TABCR PO ONE (21:00)
[2024-10-01 21:08] LABS: LACTIC ACID, BLOOD 0.5 mmol/L (0.4-2.0)
[2024-10-01] MEDS ORDERED: MAGNESIUM OXIDE 400 MG TABLET PO ONE (21:30)
[2024-10-01 22:42] VITALS: BP 141/85
== END 2024-10-01 22:42 | disposition home or self-care (01) ==
LOC: ED 19:22
PROVIDERS: Internal Medicine
DX: E86.0 Dehydration (principal); F15.90 Other stimulant use, unspecified, uncomplicated; E87.6 Hypokalemia; E83.42 Hypomagnesemia; K51.90 Ulcerative colitis, unspecified, without complications; E66.9 Obesity, unspecified; Z87.891 Personal history of nicotine dependence; Z88.2 Allergy status to sulfonamides; Z79.52 Long term (current) use of systemic steroids
CPT/HCPCS: 36415; 71045; 80053; 80307; 81001; 83605; 83690; 83735; 84703; 85025; 87040; 87502; 96361; 96365; 96375; 99284-25; A9270; J0696; J2919; J7121; U0002

== ENCOUNTER 2024-10-07 16:12 | Emergency (ER) | payer OTHER ==
[~2024-10-07] VITALS: Ht 165.1 cm; Wt 102.0 kg
[2024-10-07] MEDS ORDERED: PREDNISONE20 MG PO (16:42)
[2024-10-07] MEDS ORDERED: SODIUM CHLORIDE 0.9% 1,000 ML IV ONE (16:45)
[2024-10-07] MEDS ORDERED: KETOROLAC TROMETHAMINE 30 MG/ML VIAL IV ONE (16:45)
[2024-10-07] MEDS ORDERED: methylPREDNISolone SOD SUCC 125 MG/2 ML VIAL IV ONE (16:45)
[2024-10-07] MEDS ORDERED: HYDROmorphone HCL 1 MG/ML SYR IV ONE (16:45)
[2024-10-07 17:40] VITALS: BP 116/63
== END 2024-10-07 17:43 | disposition home or self-care (01) ==
LOC: ED 16:12
DX: M25.552 Pain in left hip (principal); M25.551 Pain in right hip; M54.2 Cervicalgia; M79.18 Myalgia, other site; K51.90 Ulcerative colitis, unspecified, without complications; Z87.891 Personal history of nicotine dependence; Z88.2 Allergy status to sulfonamides; Z79.52 Long term (current) use of systemic steroids
CPT/HCPCS: 96374; 96375; 99283-25; J1171; J1885; J2919; J7030

== ENCOUNTER 2024-10-24 02:25 | Emergency (ER) | payer OTHER ==
[~2024-10-24] VITALS: Ht 165.1 cm; Wt 98.0 kg
[2024-10-24] MEDS ORDERED: methylPREDNISolone SOD SUCC 125 MG/2 ML VIAL IV ONE (02:45)
[2024-10-24] MEDS ORDERED: HYDROmorphone HCL 1 MG/ML SYR IV ONE (02:45)
[2024-10-24] MEDS ORDERED: LACTATED RINGER'S 1,000 ML IV ONE (02:45)
[2024-10-24] MEDS ORDERED: KETOROLAC TROMETHAMINE 30 MG/ML VIAL IV ONE (02:45)
[2024-10-24 02:52] LABS: BASOPHILS 0.8 % (0-2); EOSINOPHILS 0.8 % (0-6); HEMATOCRIT 34.4 % (35.0-50.0); HEMOGLOBIN 10.7 g/dL (12.0-18.0); LYMPHOCYTES 4.6 % (24-44); MCHC 31.2 g/dl (30-36); MCV 83.2 fl (81-99); MONOCYTES 9.7 % (0-12); NEUTROPHILS 84.1 % (39-80); PLATELET COUNT 501 K/uL (140-440); RBC 4.14 M/ul (4.3-5.7); RDW 17.3 (10.5-15.0)
[2024-10-24 03:10] LABS: LACTIC ACID, BLOOD 0.9 mmol/L (0.4-2.0)
[2024-10-24 03:13] LABS: ALBUMIN/GLOBULIN RATIO 0.64 (1.1-2.4); BILIRUBIN, TOTAL 0.6 ng/dL (0.2-1.0); BUN/CREATININE RATIO 26.15 (6.0-28.6); CALCIUM 9.1 mg/dL (8.5-10.1); CREATININE, SERUM 0.65 mg/dL (0.55-1.02); MAGNESIUM 1.5 mg/dL (1.8-2.4); PHOSPHORUS, INORGANIC 2.4 mg/dL (2.5-4.9); PROTEIN, TOTAL 7.7 g/dL (6.4-8.2)
[2024-10-24] MEDS ORDERED: MAGNESIUM OXID400 M1 PO (03:27)
[2024-10-24] MEDS ORDERED: PREDNISONE20 MG PO (03:27)
[2024-10-24] MEDS ORDERED: MAGNESIUM OXIDE 400 MG TABLET PO ONE (03:30)
[2024-10-24 03:50] VITALS: BP 152/90
== END 2024-10-24 03:51 | disposition home or self-care (01) ==
LOC: ED 02:25
PROVIDERS: Internal Medicine
DX: M35.3 Polymyalgia rheumatica (principal); Z88.2 Allergy status to sulfonamides; Z79.899 Other long term (current) drug therapy
CPT/HCPCS: 36415; 80053; 82553; 83605; 83735; 84100; 85025; 85651; 86140; 96374; 96375; 99283-25; J1171; J1885; J2919; J7121

== ENCOUNTER 2025-04-10 21:29 | Emergency (ER) | payer OTHER ==
[~2025-04-10] VITALS: Ht 165.1 cm; Wt 98.0 kg
[~2025-04-10 21:29] MED LIST changes: +MAGNESIUM OXID400 M1 PO
[2025-04-10 22:43] LABS: BASOPHILS 0.7 % (0.1-1.2); EOSINOPHILS 1.5 % (0.7-5.8); LYMPHOCYTES 14.3 % (19.3-51.7); MCH 23.0 PG (25.6-32.2); MCHC 29.2 g/dL (32.2-35.5); MCV 78.7 fL (79.4-94.8); MONOCYTES 15.1 % (4.7-12.5); NEUTROPHILS 68.1 % (34.0-71.1); RBC 4.83 M/uL (3.93-5.22)
[2025-04-10] MEDS ORDERED: diazePAM 10 MG/2 ML SYR IV ONE (22:45)
[2025-04-10] MEDS ORDERED: KETOROLAC TROMETHAMINE 30 MG/ML VIAL IV ONE (22:45)
[2025-04-10 22:58] LABS: ALT (SGPT) 18.0 U/L (14-59); AST (SGOT) 11.0 U/L (15-37); GLOMERULAR FILTRATION RATE,EST 111.0 mL/min (>60); PROTEIN, TOTAL 7.5 g/dL (6.4-8.2); UREA NITROGEN 14.0 mg/dL (7-18)
[2025-04-10] MEDS ORDERED: TRAMADOL HCL50 MG PO (23:38)
[2025-04-10] MEDS ORDERED: DOXYCYCLINE HYCLATE 100 MG HOME.PACK PO ONE (23:45)
[2025-04-10] MEDS ORDERED: methylPREDNISolone 4 MG HOME.PACK PO ONE (23:45)
[2025-04-10] MEDS ORDERED: HYDROCODONE BIT/ACETAMINOPHEN 5/325 MG 1 TAB HOME.PACK PO ONE (23:45)
[2025-04-10 23:55] VITALS: BP 145/78
== END 2025-04-10 23:55 | disposition home or self-care (01) ==
LOC: ED 21:29
PROVIDERS: Family Medicine
DX: L03.115 Cellulitis of right lower limb (principal); M19.90 Unspecified osteoarthritis, unspecified site; K51.90 Ulcerative colitis, unspecified, without complications; Z88.2 Allergy status to sulfonamides; Z87.891 Personal history of nicotine dependence; Z79.899 Other long term (current) drug therapy
CPT/HCPCS: 36415; 80053; 85025; 86140; 93971; 96374; 96375; 99284-25; A9270; J1885; J2919; J3360

== ENCOUNTER 2025-06-02 18:08 | Emergency (ER) | payer OTHER ==
[~2025-06-02] VITALS: Ht 165.1 cm; Wt 96.8 kg
[~2025-06-02 18:08] MED LIST changes: +TRAMADOL HCL50 MG PO
[2025-06-02] MEDS ORDERED: PEG-3350 AND4000 ML (22:47)
[2025-06-02] MEDS ORDERED: FUROSEMIDE20 MG (22:47)
[2025-06-02] MEDS ORDERED: [UNRECOGNIZED DRUG - OTHER] (22:47)
[2025-06-02] MEDS ORDERED: PREDNISONE5 MG (22:47)
[2025-06-02] MEDS ORDERED: CEPHALEXIN500 MG (22:47)
[2025-06-02] MEDS ORDERED: [UNRECOGNIZED DRUG - OTHER] (22:47)
[2025-06-02] MEDS ORDERED: BENZONATATE100 MG (22:48)
[2025-06-02] MEDS ORDERED: AZITHROMYCIN250 MG (22:48)
[2025-06-02] MEDS ORDERED: CIPROFLOXACIN2.5 M1 (22:48)
[2025-06-03] MEDS ORDERED: PREDNISONE10 MG PO (00:12)
[2025-06-03] MEDS ORDERED: predniSONE 10 MG TAB PO ONE (00:15)
[2025-06-03 00:28] VITALS: BP 153/98
== END 2025-06-03 00:29 | disposition home or self-care (01) ==
LOC: ED 18:08
DX: K51.90 Ulcerative colitis, unspecified, without complications (principal); M06.9 Rheumatoid arthritis, unspecified; Z87.891 Personal history of nicotine dependence; Z88.2 Allergy status to sulfonamides; Z79.52 Long term (current) use of systemic steroids; Z79.899 Other long term (current) drug therapy
CPT/HCPCS: 99283; J7512